=== PATIENT | female | born 1975 | race Caucasian/White ===

== ENCOUNTER 2023-07-29 13:35 | Emergency (ER) | payer MEDICARE, OTHER, SELFPAY ==
[2023-07-29 13:41] VITALS: BP 129/93; PULSE 96; RESP 18; TEMP 36.6; O2SAT 97; BMI 27.9
--- NOTE | 2023-07-29 13:56 | ED.GENADUL1 ---
HPI - General Adult General Chief complaint: Extremity Injury, Upper Stated complaint: L SIDE/POSS. DISLOCATED RIB Time Seen by Provider: 07/29/23 13:36 Source: patient Mode of arrival: walk-in History of Present Illness HPI narrative: patient is a 48-year-old female presents to the emergency department with concern that she may have dislocated a rib . She states she was leaning forward in her car and twisted to the right side when she felt a pop in the left side of the chest wall. She states that she has felt pain with breathing and movement. She took ibuprofen this morning without improvement. Injury occurred this morning. She has been applying ice. She has no concern for . She had no fall or direct injury to the chest wall. She felt pain immediately in the left anterolateral chest after feeling the pop . She has not had any bruising, swelling to the area. No pain in the posterior chest wall or spine. She denies abdominal pain. Related Data Home Medications Medication Instructions Recorded Confirmed albuterol sulfate 90 mcg/actuation 2 puff inhalation Q4H PRN 07/29/23 07/29/23 aerosol inhaler shortness of breath or wheezing atorvastatin 20 mg tablet 20 mg PO DAILY 07/29/23 07/29/23 mayehulfbmeynaj-eoczznuqhcihflz-XA 5 ml PO Q4H PRN sinus symptoms 07/29/23 07/29/23 2 mg-30 mg-10 mg/5 mL oral syrup duloxetine 30 mg capsule,delayed 30 mg PO DAILY 07/29/23 07/29/23 release guaifenesin 600 mg tablet, 600 mg PO .Q6HR PRN cough 07/29/23 07/29/23 extended release 12 hr (Mucus Relief ER) Previous Rx's Medication Instructions Recorded methocarbamol 750 mg tablet 750 mg PO TID PRN pain #20 tabs 07/29/23 methylprednisolone 4 mg tablets in See Rx Instructions .Route 07/29/23 a dose pack (Medrol ([place])) .COMPLEX #21 ea Allergies Allergy/AdvReac Type Severity Reaction Status Date / Time amoxicillin Allergy Severe Verified 07/29/23 13:44 cyclobenzaprine Allergy Severe Verified 07/29/23 13:44 [From Flexeril] morphine Allergy Severe Verified 07/29/23 13:44 naproxen Allergy Severe Verified 07/29/23 13:44 Penicillins Allergy Severe Verified 07/29/23 13:44 Review of Systems ROS Constitutional Denies: fever or chills Ears, nose, mouth, and throat Denies: throat pain Respiratory Denies: shortness of breath or cough Gastrointestinal Denies: nausea or vomiting Musculoskeletal Denies: back pain Integumentary/Breast Denies: rash Neurological Denies: headache Endocrine Denies: excessive urination Exam Narrative Exam Narrative: Gen.: Awake, alert, in no distress Head: Normocephalic, atraumatic ENT: Moist mucous membranes Respiratory: No respiratory distress, lungs clear bilaterally; diffuse tenderness of the anterior left chest wall, no ecchymosis or crepitance noted. Cardio: Regular rate and rhythm Gastrointestinal: Abdomen is soft, nondistended and nontender to palpation Extremities: Moves extremities equally, no injuries noted Psych: Normal mood and affect Neuro: No focal neuro deficit Skin: Warm, dry, intact Constitutional Vital Signs, click to edit/add: Last Vital Signs Temp 97.9 F 07/29/23 13:41 Pulse 96 H 07/29/23 13:41 Resp 18 07/29/23 13:41 BP 129/93 H 07/29/23 13:41 Pulse Ox 97 07/29/23 13:41 O2 Del Method Room Air 07/29/23 13:41 Course Vital Signs Vital signs: Vital Signs Temperature 97.9 F 07/29/23 13:41 Pulse Rate 96 H 07/29/23 13:41 Respiratory Rate 18 07/29/23 13:41 Blood Pressure 129/93 H 07/29/23 13:41 Pulse Oximetry 97 07/29/23 13:41 Oxygen Delivery Method Room Air 07/29/23 13:41 Temperature 97.9 F 07/29/23 13:41 Pulse Rate 96 H 07/29/23 13:41 Respiratory Rate 18 07/29/23 13:41 Blood Pressure 129/93 H 07/29/23 13:41 Pulse Oximetry 97 07/29/23 13:41 Oxygen Delivery Method Room Air 07/29/23 13:41 Medical Decision Making MDM Narrative Medical decision making narrative: patient was medicated with Toradol, she has an ALLERGY listed to naproxen but is able to take ibuprofen without difficulty. X-rays reviewed by the radiologist showing no evidence of displaced rib fractures. History and physical are consistent with strained muscle. patient will be started on Medrol Dosepak, Robaxin. Follow-up with PCP and return to the Emergency Room if symptoms change or worsen. Rest, ice, gentle stretching. Medical Records Medical records reviewed: Yes I reviewed the patient's medical records Imaging Data Chest x-ray: Attestation: I have reviewed the pertinent imaging results. Radiologist's impression: Procedure: XR ribs LT min 3V w CXR1V EXAMINATION: XR ribs LT min 3V w CXR1V 07/29/2023 11:15 AM PDT HISTORY: Left side pain COMPARISONS: None. FINDINGS: Lines and tubes: None. Heart and mediastinum: The heart and the mediastinum are normal for technique. Lungs and pleura: Patchy opacification of the left lateral base. There is no pleural effusion or pneumothorax. Bones: No acute osseous abnormality. LEFT RIBS: No displaced rib fracture. No suspicious osseous lesion. IMPRESSION: 1. Patchy opacification of the left lateral base. Differential includes atelectasis and pneumonia. 2. No displaced rib fracture on the left and no discrete osseous etiology for palpable lump. Electronically authenticated by: MELISSA MCGARRY Date: 07/29/2023 14:19 Discharge Plan Discharge Chief Complaint: Extremity Injury, Upper Clinical Impression: Acute chest wall pain, Muscle strain of anterior chest wall Patient Disposition: Home, Self-Care Time of Disposition Decision: 14:29 Condition: Good Prescriptions / Home Meds: New methocarbamol 750 mg tablet 750 mg PO TID PRN (Reason: pain) Qty: 20 0RF methylprednisolone [Medrol ([place])] 4 mg tablets,dose pack See Rx Instructions .ROUTE .COMPLEX Qty: 21 0RF Rx Instructions: Taper as directed No Action albuterol sulfate 90 mcg/actuation HFA aerosol inhaler 2 puff INHALATION Q4H PRN (Reason: shortness of breath or wheezing) atorvastatin 20 mg tablet 20 mg PO DAILY duloxetine 30 mg capsule,delayed release(DR/EC) 30 mg PO DAILY eamwtdlkqelucxe-gbfxgoyov-CC 2-30-10 mg/5 mL syrup 5 ml PO Q4H PRN (Reason: sinus symptoms) guaifenesin [Mucus Relief ER] 600 mg tablet extended release 12hr 600 mg PO .Q6HR PRN (Reason: cough) Instructions: Muscle Strain (ED), Chest Wall Pain (ED) Stand Alone Forms: Portal Instructions Referrals: [facility] [Primary Care Provider] - 1 week
--- NOTE | 2023-07-29 14:08 | XR_ITS ---
The [address] [address] Patient Name: ANALIA MUSE MRN: [id number] date: 1975 Sex: F Assigned Patient Location: ED.MAIN Current Patient Location: ER Accession/Order Number: [id number] Exam Date: 07/29/2023 14:00 Report Date: 07/29/2023 14:19 At the request of: EARNEST DÍAZ Procedure: XR ribs LT min 3V w CXR1V EXAMINATION: XR ribs LT min 3V w CXR1V 07/29/2023 11:15 AM PDT HISTORY: Left side pain COMPARISONS: None. FINDINGS: Lines and tubes: None. Heart and mediastinum: The heart and the mediastinum are normal for technique. Lungs and pleura: Patchy opacification of the left lateral base. There is no pleural effusion or pneumothorax. Bones: No acute osseous abnormality. LEFT RIBS: No displaced rib fracture. No suspicious osseous lesion. XR/XR ribs LT min 3V w CXR1V IMPRESSION: 1. Patchy opacification of the left lateral base. Differential includes atelectasis and pneumonia. 2. No displaced rib fracture on the left and no discrete osseous etiology for palpable lump. Electronically authenticated by: MELISSA MCGARRY Date: 07/29/2023 14:19
[2023-07-29] MEDS: KETOROLAC TROMETHAMINE 60 MG/2 ML VIAL IM (14:14)
== END 2023-07-29 14:39 | disposition home or self-care (01) ==
PROVIDERS: Emergency Provider Emergency Medicine; PCP Family Medicine
DX: S29.012A Strain of muscle and tendon of back wall of thorax, initial encounter (principal); R07.89 Other chest pain; X50.1XXA Overexertion from prolonged static or awkward postures, initial encounter
CPT/HCPCS: 71101; 96372; 99284

== ENCOUNTER 2024-04-04 17:18 | Emergency (ER) | payer MEDICARE, OTHER, SELFPAY ==
[2024-04-04 17:26] VITALS: BP 154/98; PULSE 101; TEMP 36.8; O2SAT 97
--- NOTE | 2024-04-04 17:35 | ED.BACK1 ---
HPI HPI - Back Pain/Injury General Chief Complaint: Back Pain/Injury Stated Complaint: Back Pain Time Seen by Provider: 04/04/24 17:23 Source: patient Mode of arrival: walk-in Limitations: no limitations History of Present Illness HPI Narrative: 48-year-old female presents to the emergency department for a chief complaint of low back pain. She has had it for a month. She states she had a visit to another hospital's emergency department nearly a month ago and no x-rays were done. She also saw her family doctor and no x-rays were done. She is interested in getting an MRI. The pain does not seem to radiate and it is in the midline low back. No dysuria or hematuria. There was no injury or unusual activity. The pain is moderate to severe and worse in certain positions. Related Data Home Medications ?Medication ?Instructions ?Recorded ?Confirmed albuterol sulfate 90 mcg/actuation 2 puff inhalation Q4H PRN 07/29/23 04/04/24 aerosol inhaler shortness of breath or wheezing atorvastatin 20 mg tablet 20 mg PO DAILY 07/29/23 04/04/24 duloxetine 30 mg capsule,delayed 30 mg PO DAILY 07/29/23 04/04/24 release cyclobenzaprine 10 mg tablet 10 mg PO Q8H 04/04/24 04/04/24 omeprazole 40 mg capsule,delayed 40 mg PO BID 04/04/24 04/04/24 release Previous Rx's ?Medication ?Instructions ?Recorded methocarbamol 750 mg tablet 750 mg PO TID PRN pain #20 tabs 07/29/23 Allergies Allergy/AdvReac Type Severity Reaction Status Date / Time amoxicillin Allergy Severe Verified 07/29/23 13:44 morphine Allergy Severe Verified 07/29/23 13:44 naproxen Allergy Severe Nausea Verified 04/04/24 17:33 Penicillins Allergy Severe Verified 07/29/23 13:44 Opioid HPI Opioid Management Most Recent Opioid Data: Last Pain Scale 7 04/04/24 17:53 Last MAR Pain Assessment 04/04/24 17:53 Review of Systems ROS Narrative A ten point review of systems is negative except as noted above. Exam Narrative Exam Narrative: Nurses note and vital signs reviewed and patient is not hypoxic. General: The patient appears well and in no apparent distress. Patient is resting comfortably on cart. Skin: Warm, dry, no pallor noted. There is no rash noted. Head: Normocephalic, atraumatic Eye: Normal conjunctiva, no drainage Ears, Nose, Mouth, and Throat: oral mucosa is moist. Nares patent. Cardiovascular: Regular Rate and Rhythm Respiratory: Patient is in no distress, no accessory muscle use, lungs are clear to auscultation, no wheezing, rales or rhonchi Back: No bruise or rash to her back. She is reluctant to move her back. GI: Soft and nontender Musculoskeletal: The patient has no evidence of calf tenderness, no pitting edema, symmetrical pulses noted bilaterally Neurological: A&O, normal speech Psychiatric: Cooperative Constitutional Vital Signs, click to edit/add: Last Vital Signs Temp 98.2 F 04/04/24 17:26 Pulse 101 H 04/04/24 17:26 Resp 18 04/04/24 17:26 BP 154/98 H 04/04/24 17:26 Pulse Ox 97 04/04/24 17:26 O2 Del Method Room Air 04/04/24 17:26 Course Vital Signs Vital signs: Vital Signs Temperature 98.2 F 04/04/24 17:26 Pulse Rate 101 H 04/04/24 17:26 Respiratory Rate 18 04/04/24 17:26 Blood Pressure 154/98 H 04/04/24 17:26 Pulse Oximetry 97 04/04/24 17:26 Oxygen Delivery Method Room Air 04/04/24 17:26 Temperature 98.2 F 04/04/24 17:26 Pulse Rate 101 H 04/04/24 17:26 Respiratory Rate 18 04/04/24 17:26 Blood Pressure 154/98 H 04/04/24 17:26 Pulse Oximetry 97 04/04/24 17:26 Oxygen Delivery Method Room Air 04/04/24 17:26 MDM - Back Pain/Injury MDM Narrative Medical decision making narrative: X-rays are pending and the patient is being signed out to Dr. Cartwright Differential Diagnosis Differential diagnosis: Likely strain of lumbar region and other (Compression fracture) Discharge Plan Discharge Patient Disposition: Still a Patient
[2024-04-04] MEDS: KETOROLAC TROMETHAMINE 60 MG/2 ML VIAL IM (17:53)
--- NOTE | 2024-04-04 18:15 | XR_ITS ---
The [address] [address] Patient Name: ANALIA MUSE MRN: [id number] date: 1975 Sex: F Assigned Patient Location: ER Current Patient Location: ED.MAIN Accession/Order Number: [id number] Exam Date: 04/04/2024 18:10 Report Date: 04/04/2024 19:29 At the request of: ASIM HUNTLEY Procedure: XR lumbar spine 2-3V IMAGES REVIEWED: XR lumbar spine 2-3V COMPARISON: None available. CLINICAL INDICATION: low back pain FINDINGS/IMPRESSION: 1. No definite radiographic evidence of acute osseous abnormality of the lumbar spine. 2. Osteopenia. 3. Trace age-indeterminate height loss of the upper endplate of L2 vertebral body, evaluation limited by lack of priors for comparison. 4. Mild multilevel degenerative disc disease, most severe at L1-L2. Lower lumbar facet arthropathy. No spondylolisthesis. Electronically authenticated by: STEPHAN OCX Date: 04/04/2024 19:29
[2024-04-04] MEDS: METHYLPREDNISOLONE SOD SUCC PF 125 MG/2 ML VIAL IM (20:11)
== END 2024-04-04 20:18 | disposition home or self-care (01) ==
PROVIDERS: Emergency Provider Internal Medicine
DX: M47.816 Spondylosis without myelopathy or radiculopathy, lumbar region (principal); M54.50 Low back pain, unspecified; Z90.710 Acquired absence of both cervix and uterus; M85.88 Other specified disorders of bone density and structure, other site
CPT/HCPCS: 72100; 96372; 99284; J2919

== ENCOUNTER 2024-04-18 06:38 | Outpatient (OUT) | payer MEDICARE, OTHER, SELFPAY ==
--- OUTSIDE RECORDS SUMMARY | 2024-04-18 06:40 | XMS_ITS | CCD ---
Author Organization [facility] Care Team Providers Care Certified Physical Therapist Assistant Name Role Phone AIDE LOMELI Primary Care Unavailable CINDY COON Admitting Unavailable CINDY COON Attending Unavailable Antwan Woodruff MD Unavailable Ivy Negrete MD Primary Care Provider Don Moya MD Unavailable Nathaniel Ovalle MD Unavailable Lianne Mayo DO Unavailable Karlee Sanchez MD Unavailable Antwan Woodruff MD Unavailable Ivy Negrete MD Primary Care Provider Don Moya MD Unavailable Nathaniel Ovalle MD Unavailable [phone] KuLianne gutierrez DO Unavailable Karlee Sanchez MD Unavailable Regina Bright MD Unavailable Leopoldo Douglas Primary Care Provider Antwan Woodruff MD Unavailable Don Moya MD Unavailable Nathaniel Ovalle MD Unavailable Lianne Mayo DO Unavailable Karlee Sanchez MD Unavailable Deangelo CAVANAUGH, Regina Unavailable [phone] Chuck ELECTRICAL TRANSMISSION ENGINEER-RECEPTIONIST DOCTOR'S OFFICE, Leopoldo Primary Care Provider Mason Walls MD Unavailable [phone] Stalcup RPh, Joseph Unavailable Unavailable [place] facility supervisor, Ronit Unavailable Unavailable Darryl facility supervisor, Maya Unavailable Unavailable Chuck ELECTRICAL TRANSMISSION ENGINEER-RECEPTIONIST DOCTOR'S OFFICE, Leopoldo Primary Care Provider Stalcup RPh, Joseph Unavailable Unavailable [place] facility supervisor, Ronit Unavailable Unavailable Darryl facility supervisor, Maya Unavailable Unavailable Masno Walls MD Unavailable [phone] Stalcup RPh, Joseph Unavailable Unavailable [place] facility supervisor, Ronit Unavailable Unavailable Darryl facility supervisor, Maya Unavailable Unavailable Demidova DO, Shira Unavailable Stalcup RPh, Joseph Unavailable Unavailable [place] facility supervisor, Ronit Unavailable Unavailable Darryl facility supervisor, Maya Unavailable Unavailable Mack Vega MD Unavailable CHUCK, LEOPOLDO Primary Care Unavailable PROVIDER, UNKNOWN Attending Unavailable PROVIDER, UNKNOWN Admitting Unavailable CHUCK, LEOPOLDO Primary Care Unavailable PROVIDER, UNKNOWN Attending Unavailable PROVIDER, UNKNOWN Admitting Unavailable IVY NEGRETE Primary Care Unavailable PATIENT, SELF Referring Unavailable PROVIDER, UNKNOWN Attending Unavailable PROVIDER, UNKNOWN Admitting Unavailable CHUCK, LEOPOLDO Primary Care Unavailable PROVIDER, UNKNOWN Attending Unavailable PROVIDER, UNKNOWN Admitting Unavailable PATIENT, SELF Referring Unavailable CHUCK, LEOPOLDO Primary Care Unavailable PROVIDER, UNKNOWN Attending Unavailable PROVIDER, UNKNOWN Admitting Unavailable CHUCK, LEOPOLDO Primary Care Unavailable PATIENT, SELF Referring Unavailable PROVIDER, UNKNOWN Attending Unavailable PROVIDER, UNKNOWN Admitting Unavailable ROBERTPAULINA PARADA Attending Unavailable CHUCK, LEOPOLDO Primary Care Unavailable PROVIDER, UNKNOWN Admitting Unavailable CHUCK, LEOPOLDO Primary Care Unavailable PROVIDER, UNKNOWN Attending Unavailable PROVIDER, UNKNOWN Admitting Unavailable CHUCK, LEOPOLDO Primary Care Unavailable ROBERT, PAULINA Referring Unavailable PROVIDER, UNKNOWN Attending Unavailable PROVIDER, UNKNOWN Admitting Unavailable CHUCK, LEOPOLDO Primary Care Unavailable CHUCK, LEOPOLDO Referring Unavailable PROVIDER, UNKNOWN Attending Unavailable PROVIDER, UNKNOWN Admitting Unavailable CHUCK, LEOPOLDO Primary Care Unavailable PROVIDER, UNKNOWN Attending Unavailable PROVIDER, UNKNOWN Admitting Unavailable HITESH ROJAS Attending Unavailable CHUCK, LEOPOLDO Primary Care Unavailable PROVIDER, UNKNOWN Admitting Unavailable FASS, MARIUSZ Referring Unavailable CHUCK, LEOPOLDO Primary Care Unavailable PROVIDER, UNKNOWN Attending Unavailable PROVIDER, UNKNOWN Admitting Unavailable CHUCK, LEOPOLDO Primary Care Unavailable KAREEN GREEN, KASH Referring Unavaila ble PROVIDER, UNKNOWN Attending Unavailable PROVIDER, UNKNOWN Admitting Unavailable CHUCK, LEOPOLDO Primary Care Unavailable KAREEN GREEN, KASH Referring Unavaila ble PROVIDER, UNKNOWN Attending Unavailable PROVIDER, UNKNOWN Admitting Unavailable CHUCK, LEOPOLDO Primary Care Unavailable CHUCK, LEOPOLDO Referring Unavailable PROVIDER, UNKNOWN Attending Unavailable PROVIDER, UNKNOWN Admitting Unavailable CHUCK, LEOPOLDO Primary Care Unavailable CHUCK, LEOPOLDO Referring Unavailable PROVIDER, UNKNOWN Attending Unavailable PROVIDER, UNKNOWN Admitting Unavailable CHUCK RACHEL, LEOPOLDO L Primary Care Physician Richard Coon Attending Unavailable Richard Coon Admitting Unavailable Chuck, Leopoldo L Primary Care Unavailable Windnagel, Azul Referring Unavailable Windnagel, Azul Attending Unavailable Windnagel, Azul Admitting Unavailable CHUCK, LEOPOLDO Admitting Unavailable CHUCK, LEOPOLDO Attending Unavailable CHUCK, LEOPOLDO Primary Care Unavailable CHUCK, LEOPOLDO Consulting Unavailable Allergies Allergy Classification Reported Allergen(s) Allergy Type Date of Onset Reaction(s) Facility (3 sources) Morphine; Translations: [MORPHINE] Drug Allergy 4 [facility] Repository (3 sources) Penicillins; Translations: [PENICILLINS] Drug allergy (disorder) 3 Rash [facility] Repository (2 sources) Ketorolac; Translations: [KETOROLAC TROMETHAMINE] Drug Allergy 6 Vomiting [facility] (20 sources) Morphine; Translations: [morphine] Drug Allergy 6 Confusion [facility] Work Phone: (20 sources) Naproxen; Translations: [NAPROXEN] Drug Allergy 8 Upset Stomach [facility] (20 sources) traMADol; Translations: [TRAMADOL] Drug Allergy 7 Upset Stomach [facility] Work Phone: (20 sources) Ketorolac trometamol Propensity to adverse reactions to drug 6 Vomiting [facility] (20 sources) Penicillins Propensity to adverse reactions to drug 6 [facility] Penicillin; Translations: [penicillin] Drug Allergy rash [facility] (2 sources) Ketorolac Drug Allergy 4 [facility] Repository (2 sources) Morphine Drug Allergy 4 [facility] Repository (2 sources) Penicillins Drug allergy (disorder) 4 [facility] Repository (2 sources) traMADol Drug Allergy 4 [facility] Repository (1 source) Naproxen; Translations: [Naprosyn] Drug Allergy [facility] Repository Medications Current Medications Medication Drug Class(es) Dates Sig (Normalized) Sig (Original) 0.4 ml adalimumab 100 mg/ml auto-injector (20 sources) Tumor Necrosis Factor Jelani Start: 12-19-2022 End: 04-08-2023 Adalimumab (Humira Pen) 40 MG/0.4ML PNKT Inject 40 mg under the skin every 14 days. 2 Each 3 04/09/2023 Active Start: 08-13-2022 End: 12-17-2022 Adalimumab (Humira Pen) 40 M G/0.4ML PNKT Inject 40 mg under the skin every 14 days. 2 Each 3 08/13/2022 12/17/2022 Discontinued (Reorder (*won't e-cancel)) Start: 05-21-2022 End: 08-13-2022 adalimumab (Humira) 40 MG/0. 8ML PSKT injection Inject 0.8 mL into the skin every 10 (ten) days 3 Each 5 05/21/2022 08/13/2022 Discontinued (Duplicate (*won't e-cancel)) Start: 01-27-2020 End: 05-26-2023 Adalimumab 40 MG/0.4ML PNKT INJECT 40 MG INTO THE SKIN EVERY 10 (TEN) DAYS 2 Each 2 05/26/2022 08/13/2022 Discontinued (Duplicate (*won't e-cancel)) [id number] 200 actuat albuterol 0.09 mg/actuat metered dose inhaler (20 sources) beta2-Adrenergic Agonist Start: 08-18-2016 albuterol (PROVENTIL HFA) inhaler 90 mcg/inh Inhale 2 Puffs. 0 08/18/2016 Active atorvastatin 20 mg oral tablet (20 sources) HMG-CoA Reductase Inhibitor take 1 tablet by mouth once daily atorvastatin (LIPITOR) 20 MG tablet Take 20 mg by mouth daily. 0 Active calcipotriene 0.95974 mg/mg topical ointment (20 sources) Vitamin D Analog Start: 05-28-2017 End: 05-11-2023 calcipotriene (DOVONOX) 0.005 % ointment Indications: Psoriasis Apply topically 2 times daily. Apply thin layer to affected area. 60 g 3 11/12/2022 Active clobetasol propionate 0.5 mg/ml topical cream (20 sources) Corticosteroid Start: 02-02-2017 End: 01-17-2024 clobetasol (TEMOVATE) 0.05 % cream Indications: Psoriasis Apply topically 2 times daily to rash on hands and feet 60 g 3 07/21/2023 01/17/2024 Active DULoxetine 30 mg delayed release oral capsule (3 sources) Serotonin and Norepinephrine Reuptake Inhibitor Start: 04-07-2023 take 1 capsule by mouth once daily duloxetine (CYMBALTA) 30 MG capsule Take 1 Capsule by mouth daily. 0 04/07/2023 Active 120 actuat fluticasone propionate 0.11 mg/actuat metered dose inhaler (20 sources) Corticosteroid Start: 08-18-2016 fluticasone (FLOVENT HFA) 110 MCG/ACT inhaler Inhale 2 Puffs. 0 08/18/2016 Active ibuprofen 600 mg oral tablet (3 sources) Nonsteroidal Anti-inflammatory Drug Start: 02-19-2023 ibuprofen (MOTRIN) 600 MG tablet Take 600 mg by mouth. 0 02/19/2023 Active lamoTRIgine 100 mg oral tablet (20 sources) Mood Stabilizer, Anti-epileptic Agent take 1 tablet by mouth once daily lamotrigine (LAMICTAL) 100 MG tablet Take 100 mg by mouth daily. 0 Active linaclotide 0.145 mg oral capsule (20 sources) Guanylate Cyclase-C Agonist Start: 07-30-2017 take 1 capsule by mouth once daily Linaclotide 145 MCG CAPS capsule Indications: Chronic idiopathic constipation Take 1 Capsule by mouth daily. 30 Capsule 3 07/30/2017 Active naloxone hydrochloride 40 mg/ml nasal spray (20 sources) Opioid Antagonist Start: 08-05-2019 naloxone 4 MG/0.1ML LIQD nasal liquid Indications: Opioid Overdose Instill 0.1 mL into one nostril (alternate sides) as needed for Other (Drug overdose, give and call 911) for up to 1 dose Indications: Opioid Overdose. 1 Each 1 08/05/2019 Active omeprazole 40 mg delayed release oral capsule (20 sources) Proton Pump Inhibitor Start: 06-24-2018 take 1 capsule by mouth once daily omeprazole (PRILOSEC) 40 MG capsule Take 1 Capsule by mouth daily. 60 Capsule 3 06/24/2018 Active petrolatum 610 mg/ml topical cream (20 sources) Start: 12-28-2018 eucerin (DERMACERIN) cream Apply topically as needed. Apply thin layer to affected area. 1 Tube 1 12/28/2018 Active Tapinarof 1 % CREA (14 sources) Start: 07-21-2023 Tapinarof 1 % CREA Indications: Psoriasis Apply 2 g externally daily. 60 g 1 07/21/2023 Active tiZANidine 4 mg oral tablet (3 sources) Central alpha-2 Adrenergic Agonist Start: 03-07-2022 take 1 tablet by mouth every six hours as needed tizanidine (ZANAFLEX) 4 MG tablet Take 1 Tablet by mouth every 6 hours as needed. 0 03/07/2022 Active triamcinolone acetonide 1 mg/ml topical cream (20 sources) Corticosteroid Start: 12-28-2018 triamcinolone 0.1 % cream Apply topically 2 times daily. Apply thin layer to affected area. 30 g 0 12/28/2018 Active Completed/Discontinued Medications Medication Drug Class(es) Dates Sig (Normalized) Sig (Original) acetaminophen 500 mg oral tablet (1 source) Start: 11-12-2022 End: 11-12-2022 acetaminophen (TYLENOL) tablet Start: 11-12-2022 End: 11-12-2022 acetaminophen (TYLENOL) tabl et albuterol 0.833 mg/ml / ipratropium bromide 0.167 mg/ml inhalation solution (1 source) Anticholinergic, beta2-Adrenergic Agonist Start: 08-08-2023 End: 08-08-2023 ipratropium-albuterol (DUO-NEB) 0.5-2.5 (3) MG/3ML nebulizer solution Start: 08-08-2023 End: 08-08-2023 ipratropium-albuterol (DUO-N EB) 0.5-2.5 (3) MG/3ML nebulizer solution amitriptyline hydrochloride 25 mg oral tablet (19 sources) Tricyclic Antidepressant Start: 07-30-2017 End: 12-05-2022 take 1 tablet by mouth at bedtime amitriptyline (ELAVIL) 25 MG tablet Indications: Chronic GERD Take 1 Tablet by mouth at bedtime. 30 Tablet 0 07/30/2017 12/05/2022 Discontinued (Changing therapy) esomeprazole 40 mg injection (1 source) Proton Pump Inhibitor Start: 08-08-2023 End: 08-08-2023 esomeprazole (NEXIUM) 40 MG injection Start: 08-08-2023 End: 08-08-2023 esomeprazole (NEXIUM) 40 MG injection 2 ml famotidine 10 mg/ml injection (1 source) Histamine-2 Receptor Antagonist Start: 08-08-2023 End: 08-08-2023 Famotidine (PF) (PEPCID) 20 MG/2ML injection Start: 08-08-2023 End: 08-08-2023 Famotidine (PF) (PEPCID) 20 MG/2ML injection 0.5 ml HYDROmorphone hydrochloride 1 mg/ml prefilled syringe (1 source) Opioid Agonist Start: 08-08-2023 End: 08-08-2023 HYDROmorphone HCl PF (DILAUDID) 1 MG/ML injection Start: 08-08-2023 End: 08-08-2023 HYDROmorphone HCl PF (DILAUD ID) 1 MG/ML injection iohexol (OMNIPAQUE) 350 MG/ML injection (1 source) Start: 08-08-2023 End: 08-08-2023 iohexol (OMNIPAQUE) 350 MG/ML injection 2 ml ondansetron 2 mg/ml injection (3 sources) Serotonin-3 Receptor Antagonist Start: 08-08-2023 End: 08-08-2023 ondansetron (ZOFRAN) 4 MG/2ML injection Start: 08-08-2023 End: 08-08-2023 ondansetron (ZOFRAN) 4 MG/2M L injection Start: 11-12-2022 End: 11-12-2022 ondansetron (ZOFRAN-ODT) dis integrating tablet sertraline 25 mg oral tablet (20 sources) Serotonin Reuptake Inhibitor End: 07-22-2023 sertraline (ZOLOFT) 25 MG tablet Take 150 mg by mouth daily. 0 07/22/2023 Discontinued (Therapy completed) 50 ml sodium chloride 9 mg/ml injection (20 sources) Start: 08-08-2023 End: 08-08-2023 sodium chloride 0.9 % iv bolus Start: 01-08-2018 take 4 spray(s) nasa l route four times daily sodium chloride (OCEAN NASAL SPRAY) 0.65 % nasal spray Indications: Deviated nasal septum Instill 4 Sprays into each nostril 4 times daily. 2 Bottle 3 01/08/2018 Active sucralfate 1000 mg oral tablet (1 source) Aluminum Complex Start: 08-08-2023 End: 08-08-2023 sucralfate (CARAFATE) tablet Start: 08-08-2023 End: 08-08-2023 sucralfate (CARAFATE) tablet Technet Tc 99m Sulfur Colloi d (1 source) Start: 12-22-2022 End: 12-22-2022 Technet Tc 99m Sulfur Colloi d Problems Active Problems Problem Classification Problem Date Documented Da te Episodic/Chronic Abdominal hernia (2 sources) Hiatal hernia; Translations: [Diaphragmatic hernia without obstruction or gangrene] Onset: 3 08-13-2023 Episodic Abdominal pain (6 sources) Epigastric pain; Translations: [Epigastric pain] Onset: 3 08-08-2023 Episodic Acute and chronic tonsillitis (20 sources) Hypertrophy of adenoids; Translations: [Hypertrophy of adenoids] Onset: 7 11-19-2017 Chronic Conduction disorders (1 source) Long QT syndrome; Translations: [Long QT syndrome] Onset: 2 Chronic Esophageal disorders (20 sources) Gastroesophageal reflux disease; Translations: [Gastro-esophageal reflux disease without esophagitis] Onset: 6 06-25-2017 Chronic Mood disorders (20 sources) Depressive disorder; Translations: [Depression] Onset: 6 06-25-2017 Chronic Other aftercare (5 sources) Taking high risk medication; Translations: [Other long lines operator (current) drug therapy] Episodic Other congenital anomalies (20 sources) Disorder of the nose; 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, unspecified] Onset: 7 08-06-2017 Chronic Other connective tissue disease (1 source) Muscle pain; Translations: [Myalgia, unspecified site] Episodic Other connective tissue disease (2 sources) Facial weakness; Translations: [Facial weakness] Onset: 4 Episodic Other ear and sense organ disorders (2 sources) Otalgia, right ear; Translations: [Otalgia, right ear] Onset: 4 Episodic Other gastrointestinal disorders (20 sources) Irritable bowel syndrome characterized by constipation; Translations: [Irritable bowel syndrome with constipation] Onset: 7 06-25-2017 Chronic Other inflammatory condition of skin (20 sources) Psoriasis; Translations: [Psoriasis, unspecified] Onset: 6 Chronic Other inflammatory condition of skin (2 sources) Pustular psoriasis of palms and soles; 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] Chronic Other inflammatory condition of skin (1 source) Pustulosis palmaris et plantaris; 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] Onset: 3 Chronic Other inflammatory condition of skin (1 source) Psoriasis, unspecified; Translations: [Psoriasis, unspecified] Onset: 7 Chronic Other liver diseases (20 sources) Steatosis of liver; Translations: [Fatty (change of) liver, not elsewhere classified] Onset: 6 06-25-2017 Chronic Other nervous system disorders (20 sources) Chronic pain syndrome; Translations: [Chronic pain syndrome] Onset: 8 05-13-2018 Chronic Other nervous system disorders (20 sources) Spinal cord disease; Translations: [Disease of spinal cord, unspecified] Onset: 8 09-09-2018 Chronic Other nutritional; endocrine; and metabolic disorders (3 sources) Overweight in adulthood with body mass index of 25 or more but less than 30; Translations: [Body mass index (BMI) 28.0-28.9, adult] Episodic Other nutritional; endocrine; and metabolic disorders (1 source) Body mass index (BMI) 29.0-29.9, adult; Translations: [Body mass index (BMI) 29.0-29.9, adult] Onset: 3 Episodic Other upper respiratory infections (2 sources) Acute pharyngitis, unspecified; Translations: [Acute pharyngitis, unspecified] Onset: 4 Episodic Residual codes; unclassified (20 sources) Obstructive sleep apnea syndrome; Translations: [Obstructive sleep apnea (adult) (pediatric)] Onset: 7 08-06-2017 Chronic Residual codes; unclassified (4 sources) Procedure and treatment not carried out due to patient leaving prior to being seen by health care provider; Translations: [PROC AND TX NOT CARRIED OUT PT LEAVE] Onset: 9 Episodic Spondylosis; intervertebral disc disorders; other back problems (20 sources) Prolapsed lumbar intervertebral disc; Translations: [Other intervertebral disc displacement, lumbar region] Onset: 8 07-26-2019 Chronic Past or Other Problems Problem Classification Problem Date Documented Date Episodic/Chronic Influenza (2 sources) Influenza due to Influenza A virus; Translations: [Influenza due to other identified influenza virus with other respiratory manifestations] Onset: 11-12-2022 Episodic Nonspecific chest pain (20 sources) Chest pain; Translations: [Chest pain, unspecified] Onset: 06-24-2017 06-24-2017 Episodic Other aftercare (20 sources) Patient encounter status; Translations: [Encounter for other specified aftercare] Onset: 06-29-2018 06-29-2018 Episodic Other aftercare (1 source) Other jail (current) drug therapy; Translations: [Other long lines operator (current) drug therapy] Onset: 12-22-2022 Episodic Other connective tissue disease (1 source) Myalgia, unspecified site; Translations: [Myalgia, unspecified site] Onset: 11-12-2022 Episodic Other disorders of stomach and duodenum (20 sources) Indigestion; Translations: [Functional dyspepsia] Onset: 02-07-2016 06-25-2017 Episodic Other disorders of stomach and duodenum (1 source) Functional dyspepsia; Translations: [Functional dyspepsia] Onset: 06-25-2017 Episodic Other non-traumatic joint disorders (1 source) Pain in right knee; Translations: [Pain in right knee] Onset: 12-04-2022 Episodic Other non-traumatic joint disorders (1 source) Pain in left knee; Translations: [Pain in left knee] Onset: 12-04-2022 Episodic Other nutritional; endocrine; and metabolic disorders (20 sources) H/O: thyroid disorder; Translations: [Personal history of other endocrine, nutritional and metabolic disease] Onset: 03-22-2016 06-25-2017 Episodic Other nutritional; endocrine; and metabolic disorders (1 source) Body mass index (BMI) 28.0-28.9, adult; Translations: [Body mass index (BMI) 28.0-28.9, adult] Onset: 12-05-2022 Episodic Other screening for suspected conditions (not mental disorders or infectious disease) (1 source) Abnormal electrocardiogram [ECG] [EKG]; Translations: [Abnormal electrocardiogram (ECG) (EKG)] Onset: 11-12-2022 Episodic Other upper respiratory disease (20 sources) Hypertrophy of nasal turbinates; Translations: [Hypertrophy of nasal turbinates] Onset: 11-19-2017 11-19-2017 Episodic Other upper respiratory disease (20 sources) Deviated nasal septum; Translations: [Deviated nasal septum] Onset: 11-19-2017 01-08-2018 Episodic Residual codes; unclassified (20 sources) Inadequate sleep hygiene; Translations: [Inadequate sleep hygiene] Onset: 08-06-2017 08-06-2017 Episodic Spondylosis; intervertebral disc disorders; other back problems (20 sources) Lumbosacral radiculopathy; Translations: [Radiculopathy, lumbosacral region] Onset: 05-13-2018 05-13-2018 Episodic Results Test Name Value Interpretation Reference Range Facility Consent for Treatmenton 01-29 Consent for Treatment [id number] .00TIFF Normal [facility] MRI Brain w/ + w/o Contrasto n 02-17-2024 MRI Brain w/ + w/o Contrast Exam Date/Time: 02/17/2024 15:45 EDT Reason for Exam: G51.0 Report IMPRESSION: There are no acute intracranial changes, no evidence of ischemia or hemorrhage. There are no regions of signal abnormality there is no abnormal enhancement.. EXAMINATION: MRI Brain w/ + w/o Contrast CLINICAL HISTORY: G51.0 COMPARISONS: NONE AVAILABLE TECHNIQUE: Multiplanar multisequence images of the brain were obtained before and after IV administration of contrast. Diffusion perfusion imaging was obtained. High-resolution imaging was performed through the region of the cerebellopontine angles and IACs. FINDINGS: There are no extra-axial collections. There is no evidence of hemorrhage. There are no areas of signal abnormality on perfusion diffusion imaging to suggest ischemia. The susceptibility images do not demonstrate evidence of hemosiderin deposition within the brain parenchyma or the leptomeninges. There is preservation of the lopez-white matter differentiation. There are no areas of signal abnormality within the brain parenchyma or the posterior fossa to suggest lesion. The sulci and ventricles are within normal limits without evidence of hydrocephalus. The midline structures are intact, the corpus callosum is within normal limits. The region of the pineal gland and the sella turcica are unremarkable. There are no space-occupying lesions in the posterior fossa. The basilar cisterns are patent. The craniocervical junction is unremarkable. High-resolution imaging through the region of the cerebellopontine angles and internal auditory canals demonstrates no space-occupying lesions. The vestibular cochlear nerves are within normal limits. The bilateral inner ear structures including the cochlea and the semicircular canals are unremarkable. The visualized portions of the orbits are within normal limits, the globes are intact. The visualized portions of the paranasal sinuses are within normal limits. The calvarium and soft tissues are unremarkable. Report Ordering Provider: Azul Evans FINAL REPORT Dictated: 02/17/2024 4:50 pm Mitchell Gutierrez MD, V. Signed (Electronic Signature): 02/17/2024 4:50 pm Signed by: Mitchell Gutierrez MD, V. Transcribed by: CHERIE Technologist: NATHALIE Technical Comments [employer] Contrast amount in ml's: 7.[address] [facility] Physician Orderon 02-17-2024 Physician Order [id number] Normal [facility] RAD - MRI Screening Formon 0 02-17-2024 RAD - MRI Screening Form [id number] Normal [facility] CT head/brain wo conon 02-07 CT head/brain wo con [facility] Main [place] [address] [place], [place] [id number] CT Scan Report Signed Patient: Heather Johns MR#: [id number] : 1975 Acct:[id number] Age/Sex: 48 / F ADM Date: 02/08/24 Loc: ER Room: Type: [facility] ER Attending Dr: Copies to: Richard Coon MD Ordering Provider: Richard Coon MD Date of Service: 02/08/24 CT/CT head/brain wo con: [facility] CT head/brain wo con 02/08/2024 12:11 PM SIGNS AND SYMPTOMS: Sore throat, right ear pain, left-sided facial droop, history of Newsome's palsy TECHNIQUE:Multi-detec tor CT axial slices of the brain were obtained without IV contrast. CT was performed with one or more of the following dose reduction techniques: Automated exposure control, adjustment of the mA and/or kV according to patient size, or use of iterative reconstruction technique. COMPARISON: None. FINDINGS: There is no shift of the midline structures, acute intracranial bleeding, mass effects, or evidence of acute ischemia. The ventricular system is normal in size. The brainstem and the cerebellum are unremarkable. Mucosal thickening is noted in the maxillary sinuses. There is a right mastoid and middle ear effusion. The visualized intraorbital contents and the infratemporal soft tissues show no acute abnormality. The osseous structures in the skull base and the calvarium show no abnormality. CT/CT head/brain wo con IMPRESSION: No acute intracranial pathology. There is a small right mastoid and middle ear effusion. Impression dictated by: Cindy Hernandez M.D.02/08/2024 2:00 PM Dictation Location: [place] [address] Transcribed By: [facility] 02/08/24 1400 Dictated By: Cindy Hernandez II, MD 02/08/24 1352 Signed By: 02/08/24 1400 Normal [facility] CT head/brain wo con [facility] Main [place] [id number] CT Scan Report Signed Patient: Heather Johns MR#: [id number] : 1975 Acct:[id number] Age/Sex: 48 / F ADM Date: 02/08/24 Loc: ER Room: Type: [facility] ER Attending Dr: Copies to: Richard Coon MD Ordering Provider: Richard Coon MD Date of Service: 02/08/24 CT/CT head/brain wo con: jhg CT head/brain wo con 02/08/2024 12:11 PM SIGNS AND SYMPTOMS: Sore throat, right ear pain, left-sided facial droop, history of Newsome's palsy TECHNIQUE:Multi-detec tor CT axial slices of the brain were obtained without IV contrast. CT was performed with one or more of the following dose reduction techniques: Automated exposure control, adjustment of the mA and/or kV according to patient size, or use of iterative reconstruction technique. COMPARISON: None. FINDINGS: There is no shift of the midline structures, acute intracranial bleeding, mass effects, or evidence of acute ischemia. The ventricular system is normal in size. The brainstem and the cerebellum are unremarkable. Mucosal thickening is noted in the maxillary sinuses. There is a right mastoid and middle ear effusion. The visualized intraorbital contents and the infratemporal soft tissues show no acute abnormality. The osseous structures in the skull base and the calvarium show no abnormality. CT/CT head/brain wo con IMPRESSION: No acute intracranial pathology. There is a small right mastoid and middle ear effusion. Impression dictated by: Cindy Hernandez M.D.02/08/2024 2:00 PM Dictation Location: [place] [address] Transcribed By: [facility] 02/08/24 1400 Dictated By: Cindy Hernandez II, MD 02/08/24 1352 Signed By: 02/08/24 1400 Normal [facility] CT soft tissue neck w conon 02-08-2024 CT soft tissue neck w [facility] [place] [address] CT Scan Report Signed Patient: Heather Johns MR#: [id number] : 1975 Acct:[id number] Age/Sex: 48 / F ADM Date: 02/08/24 Loc: ER Room: Type: [facility] ER Attending Dr: Copies to: Richard Coon MD Ordering Provider: Richard Coon MD Date of Service: 02/08/24 CT/CT soft tissue neck w con: Swelling CT soft tissue neck w con 02/08/2024 12:11 PM SIGNS AND SYMPTOMS: Sore throat, right ear pain, left-sided facial droop with history of Newsome's palsy CONTRAST: 90 mL of intravenous Isovue-300 TECHNIQUE: Multidetector CT axial slices of the soft tissues of the neck were obtained with IV contrast. Sagittal and coronal reformats were reconstructed. CT was performed with one or more of the following dose reduction techniques: Automated exposure control, adjustment of the mA and/or kV according to patient size, or use of iterative reconstruction technique. COMPARISON: None FINDINGS: Soft tissues of the orbits are within normal limits. The soft tissues of the infratemporal fossa fossa structures show no acute abnormality. Mucosal surfaces of the nasopharynx, oropharynx, hypopharynx, glottic, and subglottic airways are grossly unremarkable. There are multiple mildly prominent level 2 and level 3 lymph nodes measuring 11 mm in short axis bilaterally. The parotid glands and submandibular glands are within normal limits. Heterogeneous thyroid nodules are noted bilaterally. This most likely represents multinodular goiter. The carotid and jugular circulations are patent. Calcified and noncalcified plaque is noted in the carotid bifurcations. The visualized lung parenchyma shows no acute pathology. No acute bony abnormalities are appreciated. Degenerative changes are noted in the cervical spine. The skull base, craniocervical junction, atlantoaxial joints are within normal limits. Mucosal thickening is noted in the right maxillary sinus. There is a right mastoid and middle ear effusion. CT/CT soft tissue neck w con IMPRESSION: There are multiple mildly prominent level 2 and level 3 lymph nodes measuring 11 mm in short axis bilaterally. There is no mass or abnormal enhancement. There is a right mastoid and middle ear effusion. Heterogeneous thyroid nodules are noted bilaterally. This most likely represents multinodular goiter. Impression dictated by: Cindy Hernandez M.D.02/08/2024 2:13 PM Dictation Location: [place] [address] Transcribed By: [facility] 02/08/24 1413 Dictated By: Cindy Hernandez II, MD 02/08/24 1400 Signed By: 02/08/[address] [facility] [address] soft tissue neck w con [facility] [place] [address] [place] [address] CT Scan Report Signed Patient: Heather Johns MR#: [id number] : 1975 Acct:[id number] Age/Sex: 48 / F ADM Date: 02/08/24 Loc: ER Room: Type: [facility] ER Attending Dr: Copies to: Richard Coon MD Ordering Provider: Richard Coon MD Date of Service: 02/08/24 CT/CT soft tissue neck w con: Swelling CT soft tissue neck w con 02/08/2024 12:11 PM SIGNS AND SYMPTOMS: Sore throat, right ear pain, left-sided facial droop with history of Newsome's palsy CONTRAST: 90 mL of intravenous Isovue-300 TECHNIQUE: Multidetector CT axial slices of the soft tissues of the neck were obtained with IV contrast. Sagittal and coronal reformats were reconstructed. CT was performed with one or more of the following dose reduction techniques: Automated exposure control, adjustment of the mA and/or kV according to patient size, or use of iterative reconstruction technique. COMPARISON: None FINDINGS: Soft tissues of the orbits are within normal limits. The soft tissues of the infratemporal fossa fossa structures show no acute abnormality. Mucosal surfaces of the nasopharynx, oropharynx, hypopharynx, glottic, and subglottic airways are grossly unremarkable. There are multiple mildly prominent level 2 and level 3 lymph nodes measuring 11 mm in short axis bilaterally. The parotid glands and submandibular glands are within normal limits. Heterogeneous thyroid nodules are noted bilaterally. This most likely represents multinodular goiter. The carotid and jugular circulations are patent. Calcified and noncalcified plaque is noted in the carotid bifurcations. The visualized lung parenchyma shows no acute pathology. No acute bony abnormalities are appreciated. Degenerative changes are noted in the cervical spine. The skull base, craniocervical junction, atlantoaxial joints are within normal limits. Mucosal thickening is noted in the right maxillary sinus. There is a right mastoid and middle ear effusion. CT/CT soft tissue neck w con IMPRESSION: There are multiple mildly prominent level 2 and level 3 lymph nodes measuring 11 mm in short axis bilaterally. There is no mass or abnormal enhancement. There is a right mastoid and middle ear effusion. Heterogeneous thyroid nodules are noted bilaterally. This most likely represents multinodular goiter. Impression dictated by: Cindy Hernandez M.D.02/08/2024 2:13 PM Dictation Location: [place] [address] Transcribed By: [facility] 02/08/24 1413 Dictated By: Cindy Hernandez II, MD 02/08/24 1400 Signed By: 02/08/24 1413 Normal [facility] Complete Blood Count Auto Di ffon 02-08-2024 Basophils (Bld) [#/Vol] 0.2 10*3/uL Normal 0.0-0.2 [facility] Comment on above: Performed By: #### E SR, MONOTEST CMP, CBC #### [address] Basophils/100 WBC (Bld) 1.9 % Normal . [facility] Comment on above: Performed By: #### E SR, MONOTEST, CMP, CBC #### [facility] [address] [place] [address] Eosinophils (Bld) [#/Vol] 0.4 10*3/uL Normal 0.0-0.45 [facility] Comment on above: Performed By: #### E SR, MONOTEST, CMP, CBC #### [address] Eosinophils/100 WBC (Bld) 4.5 % Normal . [facility] Comment on above: Performed By: #### E SR, MONOTEST, CMP, CBC #### [facility] [address] [place] [address] Erythrocyte distribution width (RBC) [Ratio] 13.0 % Normal 11.9-15.3 [facility] Comment on above: Performed By: #### E SR, MONOTEST, CMP, CBC #### [facility] [address] [place] [address] Hematocrit (Bld) [Volume fraction] 36.7 % Normal 34.0-46.4 [facility] Comment on above: Performed By: #### E SR, MONOTEST, CMP, CBC #### [facility] [address] Hemoglobin (Bld) [Mass/Vol] 12.2 g/dL Normal 11.8-15.4 [facility] Comment on above: Performed By: #### E SR, MONOTEST, CMP, CBC #### [address] Lymphocytes (Bld) [#/Vol] 3.1 10*3/uL Normal 1.00-4.8 [facility] Comment on above: Performed By: #### E SR, MONOTEST, CMP, CBC #### [address] Lymphocytes/100 WBC (Bld) 39.4 % Normal . [facility] Comment on above: Performed By: #### E SR, MONOTEST, CMP, CBC #### [address] MCH (RBC) [Entitic mass] 28.5 pg Normal 24.7-34.3 [facility] Comment on above: Performed By: #### E SR, MONOTEST, CMP, CBC #### [address] MCV (RBC) [Entitic vol] 85.5 fL Normal 80-100 [facility] Comment on above: Performed By: #### E SR, MONOTEST, CMP, CBC #### [address] Mean Corpuscular HGB Conc 33.4 g/dL Normal 32.0-35.0 [facility] Comment on above: Performed By: #### E SR, MONOTEST, CMP, CBC #### [address] Monocytes (Bld) [#/Vol] 0.6 10*3/uL Normal 0.0-0.8 [facility] Comment on above: Performed By: #### E SR, MONOTEST, CMP, CBC #### [address] Monocytes/100 WBC (Bld) 17.33 % Normal 0.00-20.00 [facility] Comment on above: Performed By: #### E SR, MONOTEST, CMP, CBC #### [address] Monocytes/100 WBC (Bld) 7.7 % Normal . [facility] Comment on above: Performed By: #### E SR, MONOTEST, CMP, CBC #### [address] Neutrophils (Bld) [#/Vol] 3.7 10*3/uL Normal 1.8-7.7 [facility] Comment on above: Performed By: #### E SR, MONOTEST, CMP, CBC #### [address] Neutrophils/100 WBC (Bld) 46.5 % Normal . [facility] Comment on above: Performed By: #### E SR, MONOTEST, CMP, CBC #### [address] NRBC% 0.3 /100{WBC} Normal 0-0.5 [facility] Comment on above: Performed By: #### E SR, MONOTEST, CMP, CBC #### [address] Platelet mean volume (Bld) [Entitic vol] 8.8 fL Normal 6.3-10.7 [facility] Comment on above: Performed By: #### E SR, MONOTEST, CMP, CBC #### [place] [address] [place] Platelets (Bld) [#/Vol] 374 10*3/uL Normal 150-450 [facility] Comment on above: Performed By: #### E SR, MONOTEST, CMP, CBC #### [address] RBC (Bld) [#/Vol] 4.29 10*6/uL Normal 3.60-5.00 [facility] Comment on above: Performed By: #### E SR, MONOTEST, CMP, CBC #### [facility] [address] [place] [address] WBC (Bld) [#/Vol] 7.9 10*3/uL Normal 3.8-11.6 [facility] Comment on above: Performed By: #### E SR, MONOTEST, CMP, CBC #### [address] Comprehensive Metabolic Pane chely 02-08-2024 Albumin [Mass/Vol] 4.3 g/dL Normal 3.5-5.7 [facility] Comment on above: Performed By: #### E SR, MONOTEST, CMP, CBC #### [address] Albumin/Globulin [Mass ratio] 1.3 {ratio} Normal [facility] Comment on above: Performed By: #### E SR, MONOTEST, CMP, CBC #### [address] ALP [Catalytic activity/Vol] 105 U/L High 34-104 [facility] Comment on above: Performed By: #### E SR, MONOTEST, CMP, CBC #### [address] ALT [Catalytic activity/Vol] 18 U/L Normal 7-52 [facility] Comment on above: Performed By: #### E SR, MONOTEST, CMP, CBC #### [address] Anion gap [Moles/Vol] 11.7 mmol/L Normal 6.0-15.0 [facility] Comment on above: Performed By: #### E SR, MONOTEST, CMP, CBC #### [address] AST [Catalytic activity/Vol] 15 U/L Normal 13-39 [facility] Comment on above: Performed By: #### E SR, MONOTEST, CMP, CBC #### [address] Bilirubin [Mass/Vol] 0.4 mg/dL Normal 0.3-1.0 [facility] Comment on above: Performed By: #### E SR, MONOTEST, CMP, CBC #### [address] Calcium [Mass/Vol] 10.1 mg/dL Normal 8.6-10.3 [facility] Comment on above: Performed By: #### E SR, MONOTEST, CMP, CBC #### [address] Chloride [Moles/Vol] 103 mmol/L Normal 98-107 [facility] Comment on above: Performed By: #### E SR, MONOTEST, CMP, CBC #### [address] CO2 [Moles/Vol] 28.1 mmol/L Normal 21.0-31.0 [facility] Comment on above: Performed By: #### E SR, MONOTEST, CMP, CBC #### [address] Creatinine [Mass/Vol] 0.97 mg/dL Normal 0.60-1.20 [facility] Comment on above: Performed By: #### E SR, MONOTEST, CMP, CBC #### [address] Creatinine Clr Calc Pharmacy 74.15 [facility] Comment on above: Result Comment: PERF ORMED BY: [place] [address] PATHOLOGIST [employer]AN SAMPSON M.D. Performed By: #### E SR, MONOTEST, CMP, CBC #### [address] GFR/1.73 sq M.predicted MDRD (S/P/Bld) [Vol rate/Area] mL/min/{1.73_m2} [facility] Comment on above: Performed By: #### E SR, MONOTEST, CMP, CBC #### [address] Globulin (S) [Mass/Vol] 3.4 g/dL Normal [facility] Comment on above: Performed By: #### E SR, MONOTEST CMP, CBC #### [facility] [address] Glucose [Mass/Vol] 90 mg/dL Normal 70-100 [facility] Comment on above: Result Comment: [facility] Glucose Reference Range is dependent on time and content of last meal. Glucose of more than 200 mg/dL in a nonstressed, ambulatory subject supports the diagnosis of Diabetes Mellitus. ADA recommended reference range Performed By: #### E SR, JADEEST, CMP, CBC #### [address] Potassium [Moles/Vol] 3.8 mmol/L Normal 3.5-5.1 [facility] Comment on above: Performed By: #### E SR, JADEEST CMP, CBC #### [address] Protein [Mass/Vol] 7.7 g/dL Normal 6.4-8.9 [facility] Comment on above: Performed By: #### E SR, MONOTEST, CMP, CBC #### [address] Sodium [Moles/Vol] 139 mmol/L Normal 136-145 [facility] Comment on above: Performed By: #### E SR, MONOTEST, CMP, CBC #### [facility] [address] [place] [address] Urea nitrogen [Mass/Vol] 14 mg/dL Normal 7-25 [facility] Comment on above: Performed By: #### E SR, MONOTEST, CMP, CBC #### [address] Erythrocyte Sedimentation Ra jess 02-08-2024 ESR (Bld) [Velocity] 63 mm/h High 0-19 [facility] Comment on above: Result Comment: PERF ORMED BY: [place] [address] PATHOLOGIST [employer] SAMPSON M.D. Performed By: #### E SR, MONOTEST, CMP, CBC #### [facility] [address] [place] [address] [place] 02-08-2024 Monotest Negative Normal Negative [facility] Comment on above: Result Comment: PERF ORMED BY: [place] [address] PATHOLOGIST [employer] SAMPSON M.D. Performed By: #### E SR, MONOTEST, CMP, CBC #### [address] Throat Cultureon 02-08-2024 Throat culture Heavy Normal Respiratory Ilsa 2 Days PERFORMED BY: [place] [address] PATHOLOGIST [employer] SAMPSON M.D. Normal [facility] Comment on above: Performed By: #### C [place] #### [address] XR chest 2V*on 02-08-2024 XR chest 2V* [facility] [place] [address] [place] [address] XRay Report Signed Patient: Heather Johns MR#: [id number] : 1975 Acct:[id number] Age/Sex: 48 / F ADM Date: 02/08/24 Loc: ER Room: Type: [facility] Attending Dr: Copies to: Richard Coon MD Ordering Provider: Richard Coon MD Date of Service: 02/08/24 XR/XR chest 2V*: Upper Respiratory Infection XR chest 2V* 02/08/2024 12:11 PM SIGNS AND SYMPTOMS: Sore throat, history of Newsome's palsy PROTOCOL: Frontal and lateral radiograph of the chest COMPARISON: None FINDINGS: The trachea is midline. The heart and mediastinal structures are within normal limits. The lung parenchyma is clear. The bony thorax is intact. XR/XR chest 2V* IMPRESSION: No acute cardiopulmonary pathology. Impression dictated by: Cindy Hernandez M.D.02/08/2024 2:44 PM Dictation Location: RADIO-PC-13 Transcribed By: ROWAN 02/08/241443 Dictated By: Cindy Hernandez II, MD 02/08/241443 Signed By: 02/08/241443 [facility] XR chest 2V* [facility] Main [place] [address] [place] [address] XRay Report Signed Patient: Heather Johns MR#: [id number] : 1975 Acct:[id number] Age/Sex: 48 / F ADM Date: 02/08/24 Loc: ER Room: Type: [facility] ER Attending Dr: Copies to: Richard Coon MD Ordering Provider: Richard Coon MD Date of Service: 02/08/24 XR/XR chest 2V*: Upper Respiratory Infection XR chest 2V* 02/08/2024 12:11 PM SIGNS AND SYMPTOMS: Sore throat, history of Newsome's palsy PROTOCOL: Frontal and lateral radiograph of the chest COMPARISON: None FINDINGS: The trachea is midline. The heart and mediastinal structures are within normal limits. The lung parenchyma is clear. The bony thorax is intact. XR/XR chest 2V* IMPRESSION: No acute cardiopulmonary pathology. Impression dictated by: Cindy Hernandez M.D.02/08/2024 2:44 PM Dictation Location: [facility]13 Transcribed By: ROWAN 02/08/241443 Dictated By: Cindy Hernandez II, MD 02/08/241443 Signed By: 02/08/241443 [facility] US Abdomen RUQon 10-19-2023 EXAMINATION: US LIVER/GALL BLADDER/PANCREAS 10/19/2023 10:13 AM CLINICAL HISTORY: abdominal pain ASSOCIATED DIAGNOSIS: Colicky RUQ abdominal pain ORDERING PROVIDER: LEOPOLDO WOODS COMPARISON: US LIVER/GALL BLADDER/PANCREAS 12/04/2022, 8:08 AM TECHNIQUE: Ultrasound real time scan with image documentation of the right upper quadrant including the liver, gallbladder, and pancreas was performed. FINDINGS: Liver Craniocaudal length: 14.9 cm. Echogenicity: Increased hepatic echogenicity and decreased acoustic penetration and conspicuity of the portal triads, compatible with moderate steatosis. Surface nodularity: Not visualized Mass (size and location): None. Bile ducts Intrahepatic ducts: No biliary dilatation. Common bile duct: Normal caliber. Diameter 2 mm. Gallbladder Size and morphology: Normal caliber and wall thickness. Cholelithiasis: None. Pericholecystic fluid: None. Sonographic Duval sign: Absent. Pancreas The pancreatic head and body are unremarkable. Visualization of the tail is limited. Other findings None. IMPRESSION: Moderate hepatic steatosis. No abnormality seen to explain right upper quadrant pain. MACRO: None RADIOLOGY Carl Constantino MD - 10/19/2023 EXAMINATION: US LIVER/GALL BLADDER/PANCREAS 10/19/2023 10:13 AM CLINICAL HISTORY: abdominal pain ASSOCIATED DIAGNOSIS: Colicky RUQ abdominal pain ORDERING PROVIDER: LEOPOLDO WOODS COMPARISON: US LIVER/GALL BLADDER/PANCREAS 12/04/2022, 8:08 AM TECHNIQUE: Ultrasound real time scan with image documentation of the right upper quadrant including the liver, gallbladder, and pancreas was performed. FINDINGS: Liver Craniocaudal length: 14.9 cm. Echogenicity: Increased hepatic echogenicity and decreased acoustic penetration and conspicuity of the portal triads, compatible with moderate steatosis. Surface nodularity: Not visualized Mass (size and location): None. Bile ducts Intrahepatic ducts: No biliary dilatation. Common bile duct: Normal caliber. Diameter 2 mm. Gallbladder Size and morphology: Normal caliber and wall thickness. Cholelithiasis: None. Pericholecystic fluid: None. Sonographic Duval sign: Absent. Pancreas The pancreatic head and body are unremarkable. Visualization of the tail is limited. Other findings None. IMPRESSION: Moderate hepatic steatosis. No abnormality seen to explain right upper quadrant pain. MACRO: None [facility] Radiology Study observation (narrative) [facility], [place] [employer] US Abdomen RUQOrdered By: Luann Constantino on 10-19-2023 [employer] Work Phone: US LIVER/GALL BLADDER/PANCRE ASon 10-19-2023 US LIVER/GALL BLADDER/PANCREAS EXAMINATION: US LIVER/GALL BLADDER/PANCREAS 10/19/2023 10:13 AM CLINICAL HISTORY: abdominal pain ASSOCIATED DIAGNOSIS: Colicky RUQ abdominal pain ORDERING PROVIDER: LEOPOLDO WOODS COMPARISON: US LIVER/GALL BLADDER/PANCREAS 12/04/2022, 8:08 AM TECHNIQUE: Ultrasound real time scan with image documentation of the right upper quadrant including the liver, gallbladder, and pancreas was performed. FINDINGS: Liver Craniocaudal length: 14.9 cm. Echogenicity: Increased hepatic echogenicity and decreased acoustic penetration and conspicuity of the portal triads, compatible with moderate steatosis. Surface nodularity: Not visualized Mass (size and location): None. Bile ducts Intrahepatic ducts: No biliary dilatation. Common bile duct: Normal caliber. Diameter 2 mm. Gallbladder Size and morphology: Normal caliber and wall thickness. Cholelithiasis: None. Pericholecystic fluid: None. Sonographic Duval sign: Absent. Pancreas The pancreatic head and body are unremarkable. Visualization of the tail is limited. Other findings None. IMPRESSION: Moderate hepatic steatosis. No abnormality seen to explain right upper quadrant pain. MACRO: None Normal [employer] Progress Noteson 08-13-2023 Digital Solution Architect Authentication Interface Message Text Gastroenterology Clinic Visit Paulina Jones DO [address] [place] [address] Attending Physician: Dr. Bethany Johnson MD PCP: ISABELLA Leon Last GI visit: 12/05/2022 Last endoscopy: Most recent visit in Gastroenterology was on 06/29/2017 with MSES MANOMETRY Heather Johns is a 48 year old female with a PMHx of psoriasis (on Humira), GARY, HLD, depression/manic behavior and GERD whom we are consulted to see regarding left upper quadrant abdominal pain. Has been there for a week. Is severe ranging 8-10/10 in pain, described as sharp stabbing. Nothing makes it better. Movement make it worse. Not associated with food or bowel movements Has reflux and is on omeprazole 40 mg daily with symptom control Currently taking robaxin and ibuprofen which are prescribed by her PCP and medical marijuana which helps her pain Was seen in ED and work-up including LFTs, BMP, CBC and EKG were non-remarkable.CT abdomen pelvis with no acute process but shows small hiatal hernia that has been seen on prior EGD in 2017 as 2 cm. Patient is anxious that her symptoms are due to hiatal hernia. Past Medical History: Diagnosis Date Anxiety Asthma Depression GERD (gastroesophageal reflux disease) HLD (hyperlipidemia) Hyperthyroidism Manic behavior (HCC) GARY (obstructive sleep apnea) PONV (postoperative nausea and vomiting) Past Surgical History: Procedure Laterality Date COLONOSCOPY N/A 09/16/2016 Procedure: COLONOSCOPY; Surgeon: Alyx Villela MD; Location: [facility]; Service: Gastroenterology ESOPHAGOGASTRODUODENO SCOPY N/A 04/20/2017 Procedure: ESOPHAGOGASTRODUODENO SCOPY; Surgeon: Caio Donahue MD; Location: [facility]; Service: Gastroenterology SEPTOPLASTY N/A 01/08/2018 Procedure: SEPTOPLASTY, turb reduction; Surgeon: Jhony Soler MD; Location: PERIOPERATIVE SERVICES; Service: Otolaryngology TONSILLECTOMY Bilateral 01/08/2018 Procedure: adenoidectomy; Surgeon: Jhony Soler MD; Location: PERIOPERATIVE SERVICES; Service: Otolaryngology No family history on file. Social History Tobacco Use Smoking status: Former Packs/day: 0.25 Years: 34.00 Pack years: 8.50 Types: Cigarettes Smokeless tobacco: Never Substance Use Topics Alcohol use: Yes Comment: socially Drug use: No Allergies Allergen Reactions Morphine Confusion Naproxen Upset Stomach Penicillins Rash Toradol [Ketorolac Tromethamine] Vomiting Tramadol Upset Stomach Current Outpatient Medications Medication Sig Dispense Refill tizanidine (ZANAFLEX) 4 MG tablet Take 1 Tablet by mouth every 6 hours as needed. ibuprofen (MOTRIN) 600 MG tablet Take 600 mg by mouth. duloxetine (CYMBALTA) 30 MG capsule Take 1 Capsule by mouth daily. Tapinarof 1 % CREA Apply 2 g externally daily. 60 g 1 clobetasol (TEMOVATE) 0.05 % cream Apply topically 2 times daily to rash on hands and feet 60 g 3 Adalimumab (Humira Pen) 40 MG/0.4ML PNKT Inject 40 mg under the skin every 14 days. 2 Each 3 calcipotriene (DOVONOX) 0.005 % ointment Apply topically 2 times daily. Apply thin layer to affected area. 60 g 3 naloxone 4 MG/0.1ML LIQD nasal liquid Instill 0.1 mL into one nostril (alternate sides) as needed for Other (Drug overdose, give and call 911) for up to 1 dose Indications: Opioid Overdose. 1 Each 1 eucerin (DERMACERIN) cream Apply topically as needed. Apply thin layer to affected area. 1 Tube 1 triamcinolone 0.1 % cream Apply topically 2 times daily. Apply thin layer to affected area. 30 g 0 omeprazole (PRILOSEC) 40 MG capsule Take 1 Capsule by mouth daily. 60 Capsule 3 sodium chloride (OCEAN NASAL SPRAY) 0.65 % nasal spray Instill 4 Sprays into each nostril 4 times daily. 2 Bottle 3 Linaclotide 145 MCG CAPS capsule Take 1 Capsule by mouth daily. 30 Capsule 3 albuterol (PROVENTIL HFA) inhaler 90 mcg/inh Inhale 2 Puffs. fluticasone (FLOVENT HFA) 110 MCG/ACT inhaler Inhale 2 Puffs. atorvastatin (LIPITOR) 20 MG tablet Take 20 mg by mouth daily. lamotrigine (LAMICTAL) 100 MG tablet Take 100 mg by mouth daily. No current facility-administered medications for this visit. Review of Systems Constitutional: Negative for fever and weight loss. Eyes: Negative for blurred vision and double vision. Respiratory: Negative for cough and hemoptysis. Gastrointestinal: Positive for abdominal pain. Negative for constipation, diarrhea, heartburn, nausea and vomiting. Musculoskeletal: Negative. Negative for myalgias and neck pain. Neurological: Negative for dizziness, tingling and headaches. Psychiatric/Behaviora l: Negative. Negative for depression. Physical Exam Constitutional: Appearance: Normal appearance. HENT: Head: Normocephalic. Neurological: General: No focal deficit present. Mental Status: She is alert and oriented to person, place, and time. Cranial Nerves: No cranial nerve deficit. Psychiatric: Mood and Affect: Mood normal. Co (more content not included)... Normal [facility] [employer] Authentication Interface Message Text Patient was identified by name and date of . George BowensPatient at risk for falls:No Falls Risk protocol implemented: No Normal [facility] BASIC METABOLIC PANELon 09-0 Anion gap [Moles/Vol] 14 mmol/L Normal - [facility] Comment on above: Performed By: #### L IP, CH8, HEPATIC #### [facility] [address] [place] [address], [id number] Calcium [Mass/Vol] 9.8 mg/dL Normal 8.4-10.4 The [facility] Comment on above: Performed By: #### L IP, CH8, HEPATIC #### [facility] [address] [place] [address], Chloride [Moles/Vol] 106 mmol/L Normal 97-111 The [facility] Comment on above: Performed By: #### L IP, CH8, HEPATIC #### [facility] [address] [place] [address], CO2 [Moles/Vol] 22 mmol/L Normal 21-30 The [facility] Comment on above: Performed By: #### L IP, CH8, HEPATIC #### [facility] [address] [place] [address], Creatinine [Mass/Vol] 0.99 mg/dL Normal 0.50-1.10 The [facility], [place] [employer] [facility] Comment on above: Performed By: #### L IP, CH8, HEPATIC #### [facility] [address] [place] [address], ESTIMATED GFR (CKD-EPI) 70 mL/min/1.73sqm Normal >=60 The [facility] Comment on above: Result Comment: 2020 CKD EPI Equation using Creatinine without Race Comment: Estimated glomerular filtration rate (eGFR) is calculated without a race coefficient. Values should be interpreted in the context of the patient's full clinical presentation. Reference: 1. Josias C, Kraig M, Shandra STEPHEN, et al.. A Unifying Approach for GFR Estimation: Recommendations of the NKF-ASN Task Force on Reassessing the Inclusion of Race in Diagnosing Kidney Disease. [place] Journal of Kidney Diseases 2021;79(2):268-88.e1. 2. N Engl J Med 1 Vol. 385 Issue 19 Pages 8538-7924 Performed By: #### L IP, CH8, HEPATIC #### [facility] [address] [place] [address], Glucose [Mass/Vol] 109 mg/dL Normal 68-110 The [facility] Comment on above: Performed By: #### L IP, CH8, HEPATIC #### [facility] [address] [place] [address], Potassium [Moles/Vol] 4.4 mmol/L Normal 3.3-5.3 The [facility] Comment on above: Performed By: #### L SKYE JOLLY8, HEPATIC #### [facility] [address], [place], Sodium [Moles/Vol] 138 mmol/L Normal 135-148 The [facility] Comment on above: Performed By: #### L SKYE JOLLY8, HEPATIC #### [facility] [address], [place], Urea nitrogen [Mass/Vol] 22 mg/dL Normal 8-22 The [facility] Comment on above: Performed By: #### L SKYE JOLLY8, HEPATIC #### [facility] [address], [place], Basic metabolic 2000 panelon 08-08-2023 Anion gap [Moles/Vol] 14 mmol/L 10 - 20 [facility] Calcium [Mass/Vol] 9.8 mg/dL 8.4 - 10. 4 mg/dL [facility] Chloride [Moles/Vol] 106 mmol/L 97 - 111 mmol/L [facility] CO2 [Moles/Vol] 22 mmol/L 21 - 30 mmol/L [facility] Creatinine [Mass/Vol] 0.99 mg/dL 0.50 - 1.10 mg/dL [facility] GFR/1.73 sq M.predicted MDRD (S/P/Bld) [Vol rate/Area] 70 mL/min/{1.73_m2} [facility] Comment on above: 2020 CKD EPI Equatio n using Creatinine without Race Comment: Estimated glomerular filtration rate (eGFR) is calculated without a race coefficient. Values should be interpreted in the context of the patient's full clinical presentation. Reference: 1. Josias C, Kraig M, Shandra DC, et al.. A Unifying Approach for GFR Estimation: Recommendations of the NKF-ASN Task Force on Reassessing the Inclusion of Race in Diagnosing Kidney Disease. [place] Journal of Kidney Diseases 202;79(2):268-88.e1. 2. N Engl J Med 1 Vol. 385 Issue 19 Pages 3082-0183 Glucose [Mass/Vol] 109 mg/dL 68 - 110 mg/dL [facility] Interpretation and review of laboratory results Normal [facility] Potassium [Moles/Vol] 4.4 mmol/L 3.3 - 5.3 mmol/L [facility] Sodium [Moles/Vol] 138 mmol/L 135 - 148 mmol/L [facility] Urea nitrogen [Mass/Vol] 22 mg/dL 8 - 22 mg/dL [facility] CBC WITH DIFFERENTIALon Basophils (Bld) [#/Vol] 0.28 10*3/uL High 0.00-0.20 The [facility] Comment on above: Performed By: #### D NIC #### [facility] [address] [place] [address], Basophils/100 WBC (Bld) 3.3 % High <=1.9 The [facility] Comment on above: Performed By: #### Brian NIC #### [facility] [address] [place] [address], Eosinophils (Bld) [#/Vol] 0.37 10*3/uL Normal 0.00-0.70 The [facility] Comment on above: Performed By: #### Brian NIC #### [facility] [address], [place], Eosinophils/100 WBC (Bld) 4.5 % High 0.1-4.0 The [facility] Comment on above: Performed By: #### Brian NIC #### [facility] [address], [place], Erythrocyte distribution width (RBC) [Ratio] 12.6 % Normal 11.5-14.5 The [facility] Comment on above: Performed By: #### Brian NIC #### [facility] [address], [place], Hematocrit (Bld) [Volume fraction] 39.5 % Normal 36.0-46.0 The [facility] Comment on above: Performed By: #### Brian NIC #### [facility] [address], [place], Hemoglobin (Bld) [Mass/Vol] 12.9 g/dL Normal 12.0-15.0 The [facility] Comment on above: Performed By: #### Brian NIC #### [facility] [address], [place], Lymphocytes (Bld) [#/Vol] 3.85 10*3/uL Normal 1.00-4.80 [facility] Comment on above: Performed By: #### Brian NIC #### [facility] [address], [place], Lymphocytes/100 WBC (Bld) 46.5 % High 24.0-44.0 [facility] Comment on above: Performed By: #### Brian NIC #### [facility] [address], [place], MCH (RBC) [Entitic mass] 29.4 pg Normal 26.0-34.0 [facility] Comment on above: Performed By: #### Brian NIC #### [facility] [address], [place], MCHC (RBC) [Mass/Vol] 32.7 g/dL Normal 32.0-35.9 [facility] Comment on above: Performed By: #### Brian NIC #### [facility] [address] [place] [address], MCV (RBC) [Entitic vol] 90 fL Normal 80-100 [facility] Comment on above: Performed By: #### Brian NIC #### [facility] [address] [place] [address], MONOCYTE DISTRIBUTION WIDTH Normal The [facility] Comment on above: Performed By: #### Brian NIC #### [facility] [address], [place], Monocytes (Bld) [#/Vol] 0.64 10*3/uL Normal 0.20-1.00 [facility] Comment on above: Performed By: #### Brian NIC #### [facility] [address], [place], Monocytes/100 WBC (Bld) 7.7 % Normal 2.0-11.0 [facility] Comment on above: Performed By: #### Brian NIC #### [facility] [address], [place], Neutrophils (Bld) [#/Vol] 3.14 10*3/uL Normal 1.50-8.00 The [facility] Comment on above: Performed By: #### Brian NIC #### [facility] [address], [place], Neutrophils/100 WBC (Bld) 38.0 % Normal 31.0-76.0 The [facility] Comment on above: Performed By: #### Brian NIC #### [facility] [address], [place], Platelet mean volume (Bld) [Entitic vol] 9.6 fL Normal 7.5-11.2 The [facility] Comment on above: Performed By: #### Brian NIC #### [facility] [address], [place], Platelets (Bld) [#/Vol] 328 10*3/uL Normal 150-400 The [facility] Comment on above: Performed By: #### Brian NIC #### [facility] [address], [place], RBC (Bld) [#/Vol] 4.40 10*6/uL Normal 4.00-5.20 The [facility] Comment on above: Performed By: #### Brian NIC #### [facility] [address], [place], WBC (Bld) [#/Vol] 8.3 10*3/uL Normal 4.5-11.5 The [facility] Comment on above: Performed By: #### Brian NIC #### [facility] [address], [place], Basophils (Bld) [#/Vol] 0.28 10*3/uL High 0.00 - 0.20 K/uL [facility] Basophils/100 WBC (Bld) 3.3 % High NINF - 1.9 % [facility] Eosinophils (Bld) [#/Vol] 0.37 10*3/uL 0.00 - 0.70 K/uL [facility] Eosinophils/100 WBC (Bld) 4.5 % High 0.1 - 4.0 % [facility] Erythrocyte distribution width (RBC) [Ratio] 12.6 % 11.5 - 14.5 % [facility] Hematocrit (Bld) [Volume fraction] 39.5 % 36.0 - 46.0 % [facility] Hemoglobin (Bld) [Mass/Vol] 12.9 g/dL 12.0 - 15.0 g/dL [facility] Interpretation and review of laboratory results Abnormal [facility] Lymphocytes (Bld) [#/Vol] 3.85 10*3/uL 1.00 - 4.80 K/uL [facility] Lymphocytes/100 WBC (Bld) 46.5 % High 24.0 - 44.0 % [facility] MCH (RBC) [Entitic mass] 29.4 pg 26.0 - 34.0 pg [facility] MCHC (RBC) [Mass/Vol] 32.7 g/dL 32.0 - 35.9 g/dL [facility] MCV (RBC) [Entitic vol] 90 fL 80 - 100 fL [facility] Monocyte distribution width Auto (Bld) [Entitic vol] [facility] Monocytes (Bld) [#/Vol] 0.64 10*3/uL 0.20 - 1.00 K/uL [facility] Monocytes/100 WBC (Bld) 7.7 % 2.0 - 11.0 % [facility] Neutrophils (Bld) [#/Vol] 3.14 10*3/uL 1.50 - 8.00 K/uL [facility] Neutrophils/100 WBC (Bld) 38.0 % 31.0 - 76.0 % [facility] Platelet mean volume (Bld) [Entitic vol] 9.6 fL 7.5 - 11.2 fL [facility] Platelets (Bld) [#/Vol] 328 10*3/uL 150 - 400 K/uL [facility] RBC (Bld) [#/Vol] 4.40 10*6/uL [facility] WBC (Bld) [#/Vol] 8.3 10*3/uL 4.5 - 11.5 K/uL [facility] ABD/[facility] ED I/V IVÁN W / CONTRASTon 08-08-2023 CT ABD/PELVIS ED I/V IVÁN W/ CONTRAST EXAMINATION: CT ABD/PELVIS ED I/V IVÁN W/ CONTRAST 08/08/2023 06:51 PM CLINICAL HISTORY: abdominal pain, tenderness LUQ and epigastric ASSOCIATED DIAGNOSIS: abdominal pain, tenderness LUQ and epigastric ORDERING PROVIDER: PAULINA JONES TECHNOLOGISTS NOTE: COMPARISON: US SPLEEN 12/04/2022, 8:07 AM US GALLBLADDER+BILIARY SYSTEM 06/25/2017, 8:41 AM TECHNIQUE: Contiguous axial images were obtained through the abdomen and pelvis from the level of the diaphragmatic domes through the pubic symphysis following bolus administration of intravenous contrast. MPR sagittal and coronal reconstructions were obtained from the axial data. Before infusion of intravenous contrast, radiology personnel investigated the possibility of an allergic history and of any history of reaction to iodinated contrast material. Contrast Protocol: Omnipaque 350 [>or =100lb] 100 ml [<100 lb] 1 ml per 1 lb. INTRA-PROCEDURE MEDS: iohexol (OMNIPAQUE) 350 MG/ML injection 100 mL Route: Intravenous Push FINDINGS: Included images of the lower thorax: No focal lung consolidation or pleural effusion. Subsegmental atelectasis/scarring in the left lower lobe. Hepatobiliary: Unremarkable liver without biliary dilation. Pancreas: Unremarkable Spleen: Unremarkable Adrenal Glands: Unremarkable Kidneys, ureters, and bladder: No calculi or hydroureteronephrosis . Abdominal and pelvic vasculature: Atherosclerotic wall calcifications are present without aneurysm. GI tract: Small hiatal hernia. No evidence of obstruction. Appendectomy. Peritoneum and retroperitoneum: No free fluid or free air. Lymph Nodes: No abdominal or pelvic lymphadenopathy. Uterus and adnexa: Status post hysterectomy. Visualized musculoskeletal structures: No acute fracture or destructive osseous lesion is identified. IMPRESSION: 1. No acute process within the abdomen or pelvis. 2. Small hiatal hernia. MACRO: None Normal [facility] CT Abdomen and Pelvis W cont rast IVOrdered By: Don Stoll on 08-08-2023 CT DLP 693.9 (mGy.cm) [facility] [facility] Work Phone: CT Series Abdomen [employer] Work Phone: CTDI VOL 12.6 (mGy) [employer] Work Phone: PHANTOM TYPE IEC Body Dosimetry [employer] Work Phone: [facility] Work Phone: CT Abdomen and Pelvis W cont rast Charlene 08-08-2023 EXAMINATION: CT ABD/PELVIS ED I/V IVÁN W/ CONTRAST 08/08/2023 06:51 PM CLINICAL HISTORY: abdominal pain, tenderness LUQ and epigastric ASSOCIATED DIAGNOSIS: abdominal pain, tenderness LUQ and epigastric ORDERING PROVIDER: PAULINA JONES TECHNTIEN NOTE: COMPARISON: US SPLEEN 12/04/2022, 8:07 AM US GALLBLADDER+BILIARY SYSTEM 06/25/2017, 8:41 AM TECHNIQUE: Contiguous axial images were obtained through the abdomen and pelvis from the level of the diaphragmatic domes through the pubic symphysis following bolus administration of intravenous contrast. MPR sagittal and coronal reconstructions were obtained from the axial data. Before infusion of intravenous contrast, radiology personnel investigated the possibility of an allergic history and of any history of reaction to iodinated contrast material. Contrast Protocol: Omnipaque 350 [>or =100lb] 100 ml [<100 lb] 1 ml per 1 lb. INTRA-PROCEDURE MEDS: iohexol (OMNIPAQUE) 350 MG/ML injection 100 mL Route: Intravenous Push FINDINGS: Included images of the lower thorax: No focal lung consolidation or pleural effusion. Subsegmental atelectasis/scarring in the left lower lobe. Hepatobiliary: Unremarkable liver without biliary dilation. Pancreas: Unremarkable Spleen: Unremarkable Adrenal Glands: Unremarkable Kidneys, ureters, and bladder: No calculi or hydroureteronephrosis . Abdominal and pelvic vasculature: Atherosclerotic wall calcifications are present without aneurysm. GI tract: Small hiatal hernia. No evidence of obstruction. Appendectomy. Peritoneum and retroperitoneum: No free fluid or free air. Lymph Nodes: No abdominal or pelvic lymphadenopathy. Uterus and adnexa: Status post hysterectomy. Visualized musculoskeletal structures: No acute fracture or destructive osseous lesion is identified. IMPRESSION: 1. No acute process within the abdomen or pelvis. 2. Small hiatal hernia. MACRO: None RADIOLOGY Don Stoll MD - 08/08/2023 EXAMINATION: CT ABD/PELVIS ED I/V IVÁN W/ CONTRAST 08/08/2023 06:51 PM CLINICAL HISTORY: abdominal pain, tenderness LUQ and epigastric ASSOCIATED DIAGNOSIS: abdominal pain, tenderness LUQ and epigastric ORDERING PROVIDER: PAULINA JONES TECHNOLOGISTS NOTE: COMPARISON: US SPLEEN 12/04/2022, 8:07 AM US GALLBLADDER+BILIARY SYSTEM 06/25/2017, 8:41 AM TECHNIQUE: Contiguous axial images were obtained through the abdomen and pelvis from the level of the diaphragmatic domes through the pubic symphysis following bolus administration of intravenous contrast. MPR sagittal and coronal reconstructions were obtained from the axial data. Before infusion of intravenous contrast, radiology personnel investigated the possibility of an allergic history and of any history of reaction to iodinated contrast material. Contrast Protocol: Omnipaque 350 [>or =100lb] 100 ml [<100 lb] 1 ml per 1 lb. INTRA-PROCEDURE MEDS: iohexol (OMNIPAQUE) 350 MG/ML injection 100 mL Route: Intravenous Push FINDINGS: Included images of the lower thorax: No focal lung consolidation or pleural effusion. Subsegmental atelectasis/scarring in the left lower lobe. Hepatobiliary: Unremarkable liver without biliary dilation. Pancreas: Unremarkable Spleen: Unremarkable Adrenal Glands: Unremarkable Kidneys, ureters, and bladder: No calculi or hydroureteronephrosis . Abdominal and pelvic vasculature: Atherosclerotic wall calcifications are present without aneurysm. GI tract: Small hiatal hernia. No evidence of obstruction. Appendectomy. Peritoneum and retroperitoneum: No free fluid or free air. Lymph Nodes: No abdominal or pelvic lymphadenopathy. Uterus and adnexa: Status post hysterectomy. Visualized musculoskeletal structures: No acute fracture or destructive osseous lesion is identified. IMPRESSION: 1. No acute process within the abdomen or pelvis. 2. Small hiatal hernia. MACRO: None [facility] Radiology Study observation (narrative) [facility] D-DIMERon 08-08-2023 DIMER < 200 Normal <230 [facility] [employer] [facility] Comment on above: Order Comment: A D-D nic result of <230 ng/mL DDU has a high negative predictive value for DVT and PE when combined with a clinical assessment of low to moderate probability. This cut-off value is specific for HemosIL D-dimer assay and values obtained using different methods may not be used interchangeably. Performed By: #### D NIC #### [facility] [address] [place] [address], [id number] Fibrin D-dimer DDU (PPP) [Mass/Vol] NINF [facility] Interpretation and review of laboratory results Normal [facility] A D-Dimer result of <230 ng/mL DDU has a high negative predictive value for DVT and PE when combined with a clinical assessment of low to moderate probability. This cut-off value is specific for HemosIL D-dimer assay and values obtained using different methods may not be used interchangeably. [facility] ED Provider Noteson 08-08-20 Digital Solution Architect Authentication Interface Message Text Robert for Roby: CT a/pw/ NAD, d dimer less than 200 making PE or AD less likley, pt's feeling better, re exam: abdomen w/ + BS, ND, mild LUQ tenderness, no guarding/rebound. Stable for outpatient management Normal [facility] [employer] [facility] Digital Solution Architect Authentication Interface Message Text EMERGENCY DEPARTMENT - VISIT NOTE --------- HISTORY OF PRESENT ILLNESS ----- Chief Complaint Patient presents with Abdominal pain Epigastric pain x1.5 weeks. Pt states she thinks she has a hernia. Home Health Assistant: not needed - patient preferred language is Belarusian. The history is provided by the Patient. Heather Johns is a 48 year old female presenting to the ED for pain under left breast x 2 weeks. States she was reaching over to retreive phone from floor of car and felt a 'pop' and immediate pain. Pt reports she has h/o hiatal hernia and thinks pain may be related to that, however, pt also admits she has not had this left chest pain previously. States went to OSH at that time pain started and had xray which was unremarkable and told she had a 'pulled muscle'. Pain has been present since then and getting worse. Takes ibuprofen at home w/o relief. Also uses medial marijuna at home w/o relif. Pain is sharp, mainly constant but waxes and wanes. Pt also c/o nausea and food feels like sits in esophagus and chest. Pain worse w/ movement and eating. Also reports sob. Pain is worse w/ breathing and feels SOB. Pt denies vomiting. Has been having BM- no change. Had BM today. H/o bronchitis and has been having cough w/ clear phlegm. Denies fever. Denies leg pain, leg swelling. Pt states she quit tob use but does use medical marijuana. Denies recent hospitalization, recent travel. Pt is s/p appy and s/p hysterectomy. Pt reports she is allergic to morphine but has had dilaudid in the past w/o side effects or allergic reaction. not currently taking a PP when medications reviewed w/ patient. REVIEW OF SYSTEMS Per hpi, no longer uses humira for psoriasis, PAST HISTORY Pertinent Past History: h/o anxiety, HL, psoriasis Past Medical History: Diagnosis Date Anxiety Asthma Depression GERD (gastroesophageal reflux disease) HLD (hyperlipidemia) Hyperthyroidism Manic behavior (HCC) GARY (obstructive sleep apnea) PONV (postoperative nausea and vomiting) Patient Active Problem List: Chest pain [R07.9] Depression [F32.A] Indigestion [K30] Gastroesophageal reflux disease [K21.9] Fatty liver [K76.0] History of thyroid disease [Z86.39] Irritable bowel syndrome with constipation [K58.1] Psoriasis [L40.9] GARY (obstructive sleep apnea) [G47.33] Inadequate sleep hygiene [Z72.821] Nose abnormality [Q30.9] Adenoid hypertrophy [J35.2] Hypertrophy of nasal turbinates [J34.3] Deviated nasal septum [J34.2] Lumbosacral radiculopathy [M54.17] Chronic pain syndrome [G89.4] Cervical radicular pain [M54.12] Lumbar radicular pain [M54.16] Therapy [Z51.89] Cervical radiculopathy at C5 [M54.12] Myelopathy (HCC) [G95.9] Herniated lumbar intervertebral disc [M51.26] Lumbar spondylosis [M47.816] Lumbar radiculopathy [M54.16] Herniated disc, cervical [M50.20] Pertinent Social History: Social History Tobacco Use Smoking status: Former Packs/day: 0.25 Years: 34.00 Pack years: 8.50 Types: Cigarettes Smokeless tobacco: Never Substance Use Topics Alcohol use: Yes Comment: socially Drug use: No PHYSICAL EXAM - BP (!) 145/102 Pulse 95 Temp 98 ???F (36.7 ???C) (Oral) Resp 18 SpO2 97% Exam: Constitutional: Nursing triage notes reviewed, Vital signs reviewed, Alert, Awake, and appears mildly uncomfortable HENT: Oropharynx clear, no plaques or exudates and Mucous membranes moist Eyes: Pupils equal round and reactive to light, Extraocular muscles intact, and Normal conjuctiva without pallor Neck: Supple Lung: Clear to auscultation Cardiac: Regular rate and rhythm, moderate tenderness over anterior chest wall inferior to left breast Abdomen: Soft, Nondistended, and Tender mild Epigastric and RUQ and LUQ : No CVAT Back: No midline bony tenderness to thoracic/lumbar/sacra l spines Ext: Full ROM all 4 extremities, Normal peripheral perfusion and pulses, and No calf tenderness, no edema Neuro: Alert normally oriented, Normal speech, and moves all extremities w/ equal strength Skin: No rash or lesion, Warm, and Dry Psych: Good eye contact, Cooperative, and mildly anxious MEDICAL DECISION MAKING and ED COURSE Nursing triage and assessment notes reviewed and incorporated. Review of External (Non- ED) Notes: [facility] ED notes from 2016 reviewed and show EGD w/ hiatal hernia Management Decisions: Diagnoses considered include left chest pain includes PE, muscle strain, GERD, low suspicion for ACS based on normal ekg and history and duration of sx. No evidence of PNA or PTX on cxr. Low suspicion for SBO based on hx and exam. Doubt biliary (more content not included)... Normal The [facility], [place], [facility] HEPATIC FUNCTION PANELon Albumin [Mass/Vol] 4.3 g/dL Normal 3.4-5.1 [facility] Comment on above: Performed By: #### L SKYE JOLLY8, HEPATIC #### [facility] [address] [place] [address], ALK 79 IU/L Normal 40-200 [facility] Comment on above: Performed By: #### L TWYLA JOLLY, HEPATIC #### [facility] [address] [place] [address], ALT [Catalytic activity/Vol] 17 U/L Normal 7-40 The [facility], [place] Comment on above: Performed By: #### L TWYLA JOLLY, HEPATIC #### [facility] [address] [place] [address], AST [Catalytic activity/Vol] 13 U/L Normal 7-40 The [facility], [place] Comment on above: Performed By: #### L SKYE JOLLY8, HEPATIC #### [facility] [address] [place] [address], Bilirubin [Mass/Vol] 0.4 mg/dL Normal 0.1-1.5 The [facility] Comment on above: Performed By: #### L TWYLA JOLLY, HEPATIC #### [facility] [address] [place] [address], Bilirubin.direct [Mass/Vol] 0.06 mg/dL Low 0.10-0.30 The [facility], [place] Comment on above: Performed By: #### L SKYE JOLLY8, HEPATIC #### [facility] [address] [place] [address], Protein [Mass/Vol] 7.4 g/dL Normal 6.2-8.3 [facility] Comment on above: Performed By: #### L SKYE JOLLY8, HEPATIC #### [facility] [address], [place], Albumin [Mass/Vol] 4.3 g/dL 3.4 - 5.1 g/dL [facility] ALP [Catalytic activity/Vol] 79 U/L [facility] ALT [Catalytic activity/Vol] 17 U/L [facility] AST [Catalytic activity/Vol] 13 U/L [facility] Bilirubin [Mass/Vol] 0.4 mg/dL 0.1 - 1.5 mg/dL [facility] Bilirubin.direct [Mass/Vol] 0.06 mg/dL Low 0.10 - 0.30 mg/dL [facility] Interpretation and review of laboratory results Abnormal [facility] Protein [Mass/Vol] 7.4 g/dL 6.2 - 8.3 g/dL [facility] LIPASEon 08-08-2023 LIP 12 IU/L Normal <128 The [facility] Comment on above: Performed By: #### L IP, CH8, HEPATIC #### [facility] [address], [place], Interpretation and review of laboratory results Normal [facility] Lipase [Catalytic activity/Vol] 12 U/L [facility] No Panel Informationon 08-08 [facility] Progress Noteson 08-08-2023 Digital Solution Architect Authentication Interface Message Text Maya, Per 07/21/23 follow-up, patient is no longer using Humira until further notice due to possible respiratory infection. Patient now treating with topicals for now. Will hold Humira renewal until we hear further instruction for MD or patient. Normal The [facility] URINALYSISon 08-08-2023 Glucose Ql (U) Negative Normal Negative The [facility] Comment on above: Order Comment: A D-D nic result of <230 ng/mL DDU has a high negative predictive value for DVT and PE when combined with a clinical assessment of low to moderate probability. This cut-off value is specific for HemosIL D-dimer assay and values obtained using different methods may not be used interchangeably. Performed By: #### D NIC #### [facility] [address], [place], SQUAMOUS EPITHELIAL 0-2 Normal 0-10 The [facility] Comment on above: Order Comment: A D-D nic result of <230 ng/mL DDU has a high negative predictive value for DVT and PE when combined with a clinical assessment of low to moderate probability. This cut-off value is specific for HemosIL D-dimer assay and values obtained using different methods may not be used interchangeably. Performed By: #### D NIC #### [facility] [address] [place] [address], U APPEAR Clear Normal Clear [facility] Comment on above: Order Comment: A D-D nic result of <230 ng/mL DDU has a high negative predictive value for DVT and PE when combined with a clinical assessment of low to moderate probability. This cut-off value is specific for HemosIL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 PNKT Inject 40 mg under the skin every 14 days. 2 Each 3 naloxone 4 MG/0.1ML LIQD nasal liquid Instill 0.1 mL into one nostril (alternate sides) as needed for Other (Drug overdose, give and call 911) for up to 1 dose Indications: Opioid Overdose. 1 Each 1 eucerin (DERMACERIN) cream Apply topically as needed. Apply thin layer to affected area. 1 Tube 1 triamcinolone 0.1 % cream Apply topically 2 times daily. Apply thin layer to affected area. 30 g 0 omeprazole (PRILOSEC) 40 MG capsule Take 1 Capsule by mouth daily. 60 Capsule 3 sodium chloride (OCEAN NASAL SPRAY) 0.65 % nasal spray Instill 4 Sprays into each nostril 4 times daily. 2 Bottle 3 amitriptyline (ELAVIL) 25 MG tablet Take 1 Tablet by mouth at bedtime. 30 Tablet 0 Linaclotide 145 MCG CAPS capsule Take 1 Capsule by mouth daily. 30 Capsule 3 albuterol (PROVENTIL HFA) inhaler 90 mcg/inh Inhale 2 Puffs. fluticasone (FLOVENT HFA) 110 MCG/ACT inhaler Inhale 2 Puffs. atorvastatin (LIPITOR) 20 MG tablet Take 20 mg by mouth daily. sertraline (ZOLOFT) 25 MG tablet Take 150 mg by mouth daily. lamotrigine (LAMICTAL) 100 MG tablet Take 100 mg by mouth daily. No current facility-administered medications for this visit. PHYSICAL EXAMINATION: BP 106/74 Pulse 98 Temp 97.7 ???F (36.5 ???C) (Temporal) Wt 173 lb (78.5 kg) BMI 28.79 kg/m??? BMI was 27.46 kg/sq m on 10/07/2019 (weight 74.8 kg, height 5' 5 ) Gen: NAD HEENT: No scleral icterus, moist mucous membranes Lungs: Clear to auscultation bilaterally CVS: regular rate and rhythm Abd: Soft, nontender, nondistended, +BS, no HSM Ext: No edema Skin: Warm and dry Neuro: No gross episodes Labs: CBC (last 3 years, up to 5 values) WBC RBC Hgb Hct MCV RDW Plt 11/12/221923 4.5 4.44 13.1 39.3 89 12.9 254 Basic Metabolic Panel Na K Cl CO2 Gap Glu BUN Cr Ca 11/12/221923 139 4.4 Comment: Hemolysis present 104 27 12 90 21 0.92 9.2 LFT's (last 3 years, up to 5 values) None EGD 2016 Procedure(s): ESOPHAGOGASTRODUODENO SCOPY MODERATE SEDATION: Oxygen 2L/NC, Demerol 75 mg IV/Versed 3 mg IV G (more content not included)... Normal [facility] Digital Solution Architect Authentication Interface Message Text Patient was identified by name and date of . Arielle Tariq Patient at risk for falls:Yes Falls Risk protocol implemented: no Normal [facility] XR KNEES RIGHT AND LEFT ROMAN DING AP/LATon 12-05-2022 XR KNEES RIGHT AND LEFT STANDING AP/LAT EXAMINATION: XR KNEES RIGHT AND LEFT STANDING AP/LATPRO/RT 12/04/2022 07:18 AM CLINICAL HISTORY: Reason for Exam: Acute pain of knee ASSOCIATED DIAGNOSIS: Acute pain of both knees Acute pain of both knees ORDERING PROVIDER: KASH HILTON TECHNOLOGISTS NOTE: COMPARISON: None FINDINGS: IMPRESSION: Osteopenia and evidence of prior growth arrest lines. No fracture or bone destruction. Joint spaces are radiographically preserved. If there is persistence of complaint or concern, MR examination can be done. Right and left knee standing MACRO: None Normal [facility] US LIVER/GALL BLADDER/PANCRE ASon 12-04-2022 US LIVER/GALL BLADDER/PANCREAS EXAMINATION: US LIVER/GALL BLADDER/PANCREAS 12/04/2022 07:58 AM CLINICAL HISTORY: Reason for Exam: Dyspepsia, RUQ pain ASSOCIATED DIAGNOSIS: Dyspepsia RUQ pain ORDERING PROVIDER: LEOPOLDO WOODS COMPARISON: US GALLBLADDER+BILIARY SYSTEM 06/25/2017, 8:41 AM TECHNIQUE: Ultrasound real time scan with image documentation of the right upper quadrant including the liver, gallbladder, and pancreas was performed. FINDINGS: Liver Craniocaudal length: 15.3 cm. Echogenicity: Mildly increased hepatic echogenicity with decreased conspicuity of the portal triads, compatible with mild steatosis. Surface nodularity: Not visualized Mass (size and location): None. Bile ducts Intrahepatic ducts: No biliary dilatation. Common bile duct: Normal caliber. Diameter 3 mm. Gallbladder Size and morphology: Normal caliber and wall thickness. Cholelithiasis: None Pericholecystic fluid: None. Sonographic Duval sign: Absent. Pancreas The pancreatic head and body are unremarkable. Visualization of the tail is limited. Other findings None. IMPRESSION: 1. Mild hepatic steatosis without a suspicious hepatic lesion. 2. No cholelithiasis or evidence of acute cholecystitis. MACRO: None Normal [facility] US SPLEENon 12-04-2022 US SPLEEN EXAMINATION: US SPLEENPRO/REP 12/04/2022 08:06 AM CLINICAL HISTORY: Reason for Exam: pain ASSOCIATED DIAGNOSIS: RUQ abdominal pain ORDERING PROVIDER: LEOPOLDO WOODS COMPARISON: None TECHNIQUE: Ultrasound real time scan with image documentation of the spleen were obtained. FINDINGS: The spleen measures 8.8 x 3 x 3.1 cm The spleen is normal in size and demonstrates normal homogeneous echogenicity. No perisplenic collection is seen. IMPRESSION: Unremarkable ultrasound of the spleen. MACRO: None Normal The [facility] [place] BASIC METABOLIC PANELon 12-1 Anion gap [Moles/Vol] 12 mmol/L Normal 10-20 The [facility] [place] Comment on above: Performed By: #### C H8 #### [facility] [address] [place], [address] Calcium [Mass/Vol] 9.2 mg/dL Normal 8.4-10.4 The [facility] Comment on above: Performed By: #### C H8 #### [facility] [address] [place], [address] Chloride [Moles/Vol] 104 mmol/L Normal 97-111 The [facility] [place] Comment on above: Performed By: #### C H8 #### [facility] [address] [place], [address] CO2 [Moles/Vol] 27 mmol/L Normal 21-30 The [facility] Comment on above: Performed By: #### C H8 #### [facility] [address] [place], [address] Creatinine [Mass/Vol] 0.92 mg/dL Normal 0.50-1.10 The [facility] Comment on above: Performed By: #### C H8 #### [facility] [address] [place], [address] ESTIMATED GFR (CKD-EPI) 77 mL/min/1.73sqm Normal >=60 The [facility] Comment on above: Result Comment: 2020 CKD EPI Equation using Creatinine without Race Comment: Estimated glomerular filtration rate (eGFR) is calculated without a race coefficient. Values should be interpreted in the context of the patient's full clinical presentation. Reference: 1. Josias C, Kraig M, Shandra STEPHEN, et al.. A Unifying Approach for GFR Estimation: Recommendations of the NKF-ASN Task Force on Reassessing the Inclusion of Race in Diagnosing Kidney Disease. [place] Journal of Kidney Diseases 2021;79(2):268-88.e1. 2. N Engl J Med 2020 Vol. 385 Issue 19 Pages [phone] Performed By: #### C H8 #### [facility] [address] [place], [address] Glucose [Mass/Vol] 90 mg/dL Normal 68-110 The [facility] Comment on above: Performed By: #### C H8 #### [facility] [address] [place], [address] Potassium [Moles/Vol] 4.4 mmol/L Normal 3.3-5.3 The [facility] Comment on above: Result Comment: Hemo lysis present Performed By: #### C H8 #### [facility] [address] [place], [address] Sodium [Moles/Vol] 139 mmol/L Normal 135-148 The [facility] Comment on above: Performed By: #### C H8 #### [facility] [address] [place], [address] Urea nitrogen [Mass/Vol] 21 mg/dL Normal 8-22 The [facility] Comment on above: Performed By: #### C H8 #### [facility] [address] [place], [address] Basic metabolic 2000 panelOr dered By: Elsa Sifuentes on 11-12-2022 Anion gap [Moles/Vol] 12 mmol/L 10 - 20 [facility] Calcium [Mass/Vol] 9.2 mg/dL 8.4 - 10. 4 mg/dL [facility] Chloride [Moles/Vol] 104 mmol/L 97 - 111 mmol/L [facility] CO2 [Moles/Vol] 27 mmol/L 21 - 30 mmol/L [facility] Creatinine [Mass/Vol] 0.92 mg/dL 0.50 - 1.10 mg/dL [facility] GFR/1.73 sq M.predicted MDRD (S/P/Bld) [Vol rate/Area] 77 mL/min/{1.73_m2} - PINF [facility] Comment on above: 2020 CKD EPI Equatio n using Creatinine without Race Comment: Estimated glomerular filtration rate (eGFR) is calculated without a race coefficient. Values should be interpreted in the context of the patient's full clinical presentation. Reference: 1. Josias C, Kraig M, Shandra DC, et al.. A Unifying Approach for GFR Estimation: Recommendations of the NKF-ASN Task Force on Reassessing the Inclusion of Race in Diagnosing Kidney Disease. [place] Journal of Kidney Diseases 202;79(2):268-88.e1. 2. N Engl J Med 2020 Vol. 385 Issue 19 Pages 3690-6156 Glucose [Mass/Vol] 90 mg/dL 68 - 110 mg/dL [facility] Interpretation and review of laboratory results Normal [facility] Potassium [Moles/Vol] 4.4 mmol/L 3.3 - 5.3 mmol/L [facility] Comment on above: Hemolysis present Sodium [Moles/Vol] 139 mmol/L 135 - 148 mmol/L [facility] Urea nitrogen [Mass/Vol] 21 mg/dL 8 - 22 mg/dL [facility] CBC WITH DIFFERENTIALon 10-30 Basophils (Bld) [#/Vol] 0.10 10*3/uL Normal 0.00-0.20 The [facility] Comment on above: Performed By: #### D INC #### [facility] [address] [place], [address] Basophils/100 WBC (Bld) 1.2 % Normal <=1.9 The [facility] Comment on above: Performed By: #### D NIC #### [facility] [address] [place], [place], Eosinophils (Bld) [#/Vol] 0.10 10*3/uL Normal 0.00-0.70 [facility] Comment on above: Performed By: #### D NIC #### [facility] [address] [place], [place], Eosinophils/100 WBC (Bld) 1.1 % Normal 0.1-4.0 [facility] Comment on above: Performed By: #### D NIC #### [facility] [address] [place], [place], Erythrocyte distribution width (RBC) [Ratio] 12.9 % Normal 11.5-14.5 [facility] Comment on above: Performed By: #### D NIC #### [facility] [address] [place], [place], Hematocrit (Bld) [Volume fraction] 39.3 % Normal 36.0-46.0 [facility] [employer] [facility] Comment on above: Performed By: #### Brian NIC #### [facility] [address] [place], [place], Hemoglobin (Bld) [Mass/Vol] 13.1 g/dL Normal 12.0-15.0 [facility] Comment on above: Performed By: #### D NIC #### [facility] [address] [place], [place], Lymphocytes (Bld) [#/Vol] 2.40 10*3/uL Normal 1.00-4.80 [facility] Comment on above: Performed By: #### D NIC #### [facility] [address] [place], [place], Lymphocytes/100 WBC (Bld) 53.8 % High 24.0-44.0 [email or web address] Comment on above: Performed By: #### D NIC #### [facility] [address] [place], [place], MCH (RBC) [Entitic mass] 29.6 pg Normal 26.0-34.0 [facility] Comment on above: Performed By: #### Brian NIC #### S [facility] [address] [place] [address], MCHC (RBC) [Mass/Vol] 33.4 g/dL Normal 32.0-35.9 The [facility] Comment on above: Performed By: ###Michaelle Torres NIC #### [facility] [address] [place] [address], MCV (RBC) [Entitic vol] 89 fL Normal 80-100 The [facility] Comment on above: Performed By: ###Michaelle Torres NIC #### [facility] [address] [place] [address], MONOCYTE DISTRIBUTION WIDTH Normal The [facility] Comment on above: Performed By: ###Michaelle Torres NIC #### [facility] [address] [place] [address], Monocytes (Bld) [#/Vol] 0.70 10*3/uL Normal 0.20-1.00 The [facility] Comment on above: Performed By: ###Michaelle Torres NIC #### [facility] [address] [place] [address], Monocytes/100 WBC (Bld) 16.5 % High 2.0-11.0 The [facility] [place] Comment on above: Performed By: ###Michaelle Torres NIC #### [facility] [address] [place] [address], Neutrophils (Bld) [#/Vol] 1.20 10*3/uL Low 1.50-8.00 The [facility] Comment on above: Performed By: ###Michaelle Torres NIC #### [facility] [address] [place] [address], Neutrophils/100 WBC (Bld) 27.4 % Low 31.0-76.0 The [facility] [place] [facility] Comment on above: Performed By: ###Michaelle Torres NIC #### [facility] [address] [place] [address], Nucleated RBC (Bld) [#/Vol] 0.1 10*3/uL Normal The [facility] Comment on above: Performed By: ###Michaelle Torres NIC #### [facility] [address] [place], [place], Nucleated RBC (Bld) [#/Vol] 0.01 10*3/uL Normal The [facility] Comment on above: Performed By: #### D NIC #### [facility] [address] [place], [place], Platelet mean volume (Bld) [Entitic vol] 9.1 fL Normal 7.5-11.2 The [facility] Comment on above: Performed By: #### Brian NIC #### [facility] [address] [place], [place], Platelets (Bld) [#/Vol] 254 10*3/uL Normal 150-400 The [facility] Comment on above: Performed By: #### Brian NIC #### [facility] [address] [place] [address], RBC (Bld) [#/Vol] 4.44 10*6/uL Normal 4.00-5.20 The [facility] Comment on above: Performed By: #### Brian NIC #### [facility] [address] [place], [place], WBC (Bld) [#/Vol] 4.5 10*3/uL Normal 4.5-11.5 The [facility] Comment on above: Performed By: #### Brian NIC #### [facility] [address] [place], [place], Basophils (Bld) [#/Vol] 0.10 10*3/uL 0.00 - 0.20 K/uL [facility] Basophils/100 WBC (Bld) 1.2 % NINF - 1.9 % [facility] Eosinophils (Bld) [#/Vol] 0.10 10*3/uL 0.00 - 0.70 K/uL [facility] Eosinophils/100 WBC (Bld) 1.1 % 0.1 - 4.0 % [facility] Erythrocyte distribution width (RBC) [Ratio] 12.9 % 11.5 - 14.5 % [facility] Hematocrit (Bld) [Volume fraction] 39.3 % 36.0 - 46.0 % [facility] Hemoglobin (Bld) [Mass/Vol] 13.1 g/dL 12.0 - 15.0 g/dL [facility] Interpretation and review of laboratory results Abnormal [facility] Lymphocytes (Bld) [#/Vol] 2.40 10*3/uL 1.00 - 4.80 K/uL [facility] Lymphocytes/100 WBC (Bld) 53.8 % High 24.0 - 44.0 % [facility] MCH (RBC) [Entitic mass] 29.6 pg 26.0 - 34.0 pg [facility] MCHC (RBC) [Mass/Vol] 33.4 g/dL 32.0 - 35.9 g/dL [facility] MCV (RBC) [Entitic vol] 89 fL 80 - 100 fL [facility] Monocyte distribution width Auto (Bld) [Entitic vol] [facility] Monocytes (Bld) [#/Vol] 0.70 10*3/uL 0.20 - 1.00 K/uL [facility] Monocytes/100 WBC (Bld) 16.5 % High 2.0 - 11.0 % [facility] Neutrophils (Bld) [#/Vol] 1.20 10*3/uL Low 1.50 - 8.00 K/uL [facility] Neutrophils/100 WBC (Bld) 27.4 % Low 31.0 - 76.0 % [facility] Nucleated RBC (Bld) [#/Vol] 0.01 10*3/uL [facility] Nucleated RBC/100 WBC (Bld) [Ratio] 0.1 % [facility] Platelet mean volume (Bld) [Entitic vol] 9.1 fL 7.5 - 11.2 fL [facility] Platelets (Bld) [#/Vol] 254 10*3/uL 150 - 400 K/uL [facility] RBC (Bld) [#/Vol] 4.44 10*6/uL [facility] WBC (Bld) [#/Vol] 4.5 10*3/uL 4.5 - 11.5 K/uL [facility] ED Provider Adelita 11-12-20 Digital Solution Architect Authentication Interface Message Text Emergency Department Attending Note --------- HISTORY OF PRESENT ILLNESS ----- No chief complaint on file. not needed - patient preferred language is Belarusian. HIPAA:Verbal permission granted from patient to discuss case, including protected health information, in front of family / friends in room at the time of the ED evaluation. KN95 has been worn for the entirety of this patient encounter. The history is provided by the Patient. Heather Johns is a 47 year old year old female recently diagnosed with influenza today documented history of GERD, IBS, thyroid disease, psoriasis on immunosuppressants, presenting to the ED today with complaints of myalgias throughout her entire body. Additionally patient tells me that she is having some chest pain. Patient notes that she was at an urgent care today because for the last 3 days she has been feeling sick. She notes that they found her to be positive for influenza today. She tells me they sent her to the emergency department because she was complaining of chest tightness. She describes this pain as a tightness in her chest and tells me that she does have some tenderness to touch in her anterior chest. Patient currently denies headache dizziness, shortness of breath difficulty breathing, abdominal pain, vomiting, diarrhea constipation, black or bloody stools. REVIEW OF SYSTEMS Review of Systems Constitutional: Positive for fever, chills and malaise/fatigue. HENT: Positive for congestion. Negative for ear pain, sore throat and neck pain. Eyes: Negative for pain and discharge. Respiratory: Positive for cough. Negative for shortness of breath and wheezing. Cardiovascular: Positive for chest pain. Negative for palpitations and leg swelling. Gastrointestinal: Positive for nausea. Negative for vomiting, abdominal pain, diarrhea, constipation and blood in stool. Genitourinary: Negative for dysuria, urgency and frequency. Musculoskeletal: Positive for myalgias. Negative for back pain. Neurological: Positive for headaches. Negative for dizziness and weakness. Psychiatric/Behaviora l: Negative for suicidal ideas and hallucinations. The patient is not nervous/anxious. PAST HISTORY Pertinent Past History: Past Medical History: Diagnosis Date Anxiety Asthma Depression GERD (gastroesophageal reflux disease) HLD (hyperlipidemia) Hyperthyroidism Manic behavior (HCC) GARY (obstructive sleep apnea) PONV (postoperative nausea and vomiting) Patient Active Problem List: Chest pain [R07.9] Depression [F32.A] Indigestion [K30] Gastroesophageal reflux disease [K21.9] Fatty liver [K76.0] History of thyroid disease [Z86.39] Irritable bowel syndrome with constipation [K58.1] Psoriasis [L40.9] GARY (obstructive sleep apnea) [G47.33] Inadequate sleep hygiene [Z72.821] Nose abnormality [Q30.9] Adenoid hypertrophy [J35.2] Hypertrophy of nasal turbinates [J34.3] Deviated nasal septum [J34.2] Lumbosacral radiculopathy [M54.17] Chronic pain syndrome [G89.4] Cervical radicular pain [M54.12] Lumbar radicular pain [M54.16] Therapy [Z51.89] Cervical radiculopathy at C5 [M54.12] Myelopathy (HCC) [G95.9] Herniated lumbar intervertebral disc [M51.26] Lumbar spondylosis [M47.816] Lumbar radiculopathy [M54.16] Herniated disc, cervical [M50.20] Pertinent Family History: No family history on file. Pertinent Social History: Social History Occupational History Not on file Tobacco Use Smoking status: Every Day Packs/day: 0.25 Years: 34.00 Pack years: 8.50 Types: Cigarettes Smokeless tobacco: Never Substance and Sexual Activity Alcohol use: Yes Comment: socially Drug use: No Sexual activity: Yes Partners: Male PHYSICAL EXAM - BP 106/68 Pulse (!) 113 Temp 98.2 ???F (36.8 ???C) (Oral) Resp 18 SpO2 97% Physical Exam Vitals and nursing note reviewed. Constitutional: General: She is not in acute distress. Appearance: Normal appearance. She is not diaphoretic. HENT: Head: Normocephalic and atraumatic. Nose: Nose normal. Mouth/Throat: Mouth: Mucous membranes are moist. Eyes: Extraocular Movements: Extraocular movements intact. Pupils: Pupils are equal, round, and reactive to light. Cardiovascular: Rate and Rhythm: Tachycardia present. Comments: No murmurs rubs or gallops Pulmonary: Effort: Pulmonary effort is normal. No respiratory distress. Comments: Patient with no increased respiratory effort, satting appropriately on room air, no rales wheezing or rhonchi Abdominal: Comments: Abdomen is soft, nondistended, nontender, no rebound or guarding, bowel sounds equal present throughout. Musculoskeletal: Ge (more content not included)... Normal [facility] HIGH SENSITIVITY TROPONIN Io n 11-12-2022 HS TROPONIN I < 4 Normal <=15 [facility] Comment on above: Order Comment: A D-D nic result of <230 ng/mL DDU has a high negative predictive value for DVT and PE when combined with a clinical assessment of low to moderate probability. This cut-off value is specific for HemosIL D-dimer assay and values obtained using different methods may not be used interchangeably. Performed By: #### D NIC #### [facility] [address] [place], [address] Troponin I.cardiac DL <= 0.01 ng/mL [Mass/Vol] ng/L NINF - 15 ng/L [facility] Noteson 11-12-2022 Digital Solution Architect Authentication Interface Message Text Documentation: Mode: Video Consent: This visit was initiated by the patient. Audio and visual communication was utilized in real-time. I confirmed understanding of risks and benefits of telehealth visits and obtained consent to proceed with the telemedicine visit. Location of Patient: Home of patient Time-Based Billing Justifications: Charting in [facility] Patient visit (including performing a medically appropriate exam) Obtaining history (or reviewing separately obtained history) Reviewing (chart, labs, and other clinical notes) Counseling/educating the patient/family/caregi [place] Ordering/interpreting (medications, tests, procedures) [facility] D[facility] Follow-up visit CC: Psoriasis HPI: Patient is 47 year old female who presents for above. Most recent visit in Dermatology was on 11/12/2022 with Regina Bright MD. Pt notes that she was sick with COVID - she first tested positive on 09/23/22. She tested negative on 09/30/22. She started COVID medication (paxlovid?) on 09/24-09/28. Pt notes she then resumed Humira on 10/17/22 and then had another shot 10/31. She then stopped taking it again due to a pharmacists advice as she has been sick all through september. Her psoriasis is starting to come back on her feet - feels like her hands and feet are starting to flare. She still has fever, vomiting, coughing, leg pain. Notes that she watched her grandkids and caught another fever. She also notes headaches. ROS: Skin: (-) irritation (-) pruritus (-) bleeding (-) ulceration (-) photosensitivity PMH: Past Medical History: Diagnosis Date Anxiety Asthma Depression GERD (gastroesophageal reflux disease) HLD (hyperlipidemia) Hyperthyroidism Manic behavior (HCC) GARY (obstructive sleep apnea) PONV (postoperative nausea and vomiting) Current medications: Current Outpatient Medications Medication Sig Dispense Refill Adalimumab (Humira Pen) 40 MG/0.4ML PNKT Inject 40 mg under the skin every 14 days. 2 Each 3 naloxone 4 MG/0.1ML LIQD nasal liquid Instill 0.1 mL into one nostril (alternate sides) as needed for Other (Drug overdose, give and call 911) for up to 1 dose Indications: Opioid Overdose. 1 Each 1 eucerin (DERMACERIN) cream Apply topically as needed. Apply thin layer to affected area. 1 Tube 1 triamcinolone 0.1 % cream Apply topically 2 times daily. Apply thin layer to affected area. 30 g 0 omeprazole (PRILOSEC) 40 MG capsule Take 1 Capsule by mouth daily. 60 Capsule 3 sodium chloride (OCEAN NASAL SPRAY) 0.65 % nasal spray Instill 4 Sprays into each nostril 4 times daily. 2 Bottle 3 amitriptyline (ELAVIL) 25 MG tablet Take 1 Tablet by mouth at bedtime. 30 Tablet 0 Linaclotide 145 MCG CAPS capsule Take 1 Capsule by mouth daily. 30 Capsule 3 calcipotriene (DOVONOX) 0.005 % ointment Apply topically 2 times daily. Apply thin layer to affected area. 60 g 3 clobetasol (TEMOVATE) 0.05 % cream Apply topically 2 times daily. For rash on hands and feet 60 g 1 albuterol (PROVENTIL HFA) inhaler 90 mcg/inh Inhale 2 Puffs. fluticasone (FLOVENT HFA) 110 MCG/ACT inhaler Inhale 2 Puffs. atorvastatin (LIPITOR) 20 MG tablet Take 20 mg by mouth daily. sertraline (ZOLOFT) 25 MG tablet Take 150 mg by mouth daily. lamotrigine (LAMICTAL) 100 MG tablet Take 100 mg by mouth daily. No current facility-administered medications for this visit. Allergies: Morphine, Naproxen, Penicillins, Toradol [ketorolac tromethamine], and Tramadol FMH: No family history on file. Social history: Social History Socioeconomic History Marital status: Highest education level: 11th grade Tobacco Use Smoking status: Every Day Packs/day: 0.25 Years: 34.00 Pack years: 8.50 Types: Cigarettes Smokeless tobacco: Never Substance and Sexual Activity Alcohol use: Yes Comment: socially Drug use: No Sexual activity: Yes Partners: Male Social Determinants of Health Financial Resource Strain: Medium Risk Difficulty of Paying Living Expenses: Somewhat hard Food Insecurity: No Food Insecurity Worried About Running Out of Food in the Last Year: Never true Ran Out of Food in the Last Year: Never true Transportation Needs: No Transportation Needs Lack of Transportation (Medical): No Lack of Transportation (Non-Medical): No Physical Activity: Insufficiently Active Days of Exercise per Week: 1 day Minutes of Exercise per Session: 30 min Stress: Stress Concern Present Feeling of Stress : To some extent Social Connections: Moderately Isolated Frequency of Communication with Friends and Family: More than three times a week Frequency of Social Gatherings with Friends and Family: More than three times a week Attends Sikh Services: Never Active Member of Clubs or Organizations: No Attends Club or Organization Meetings: Never Marital Status: Intimate Partner Violence: Not At Risk Fear of Current or Ex-Partner: No Emotionally Abused: No Physical (more content not included)... Normal [facility] Troponin I.cardiac DL <= 0.0 1 ng/mL [Mass/Vol]on 11-12-2022 Interpretation and review of laboratory results Normal [facility] [place] [employer] High Sensitivity Cardiac Troponin I (hsTnI) assay has replaced the conventional troponin assay at [facility]. All results are reported in whole numbers representing ng/L. Repeat test times for ruling out acute coronary syndrome (ACS) are every 2 hours instead of every 6-8 hours. [id number] conventional troponin (I-stat) will remain available in the [facility] results obtained by different labs or methods are not comparable. Elevated troponin can result from acute myocardial infarction (coronary etiology) or myocardial injury (non-coronary etiology) always consider both. For ruling out acute coronary syndrome (ACS), lab values are always used in conjunction with clinical risk assessment (e.g., HEART score). Interpreting initial value in ruling out ACS Less than 5 ng/L below lower limit of quantification essentially rules out ACS if chest pain began more than 3 hours prior to test and assessed risk is low 5 - 49 ng/L indeterminate consider repeat value in 2 hours depending on risk assessment 50 ng/L or greater concern for ACS or myocardial injury Interpreting repeated values in ruling out ACS. Always compare to initial value obtained: Increase of less than 5 ng/L essentially rules out ACS if chest pain began more than 3 hours prior to initial test and assessed risk is low Increase of 5 - 19 ng/L indeterminate consider another repeat value in 2 hours depending on risk assessment Increase of 20 ng/L or greater Concern for ACS or myocardial injury Any absolute value of 50 ng/L or greater concern for ACS or myocardial injury Intermediate hsTnI values DO NOT mandate admission to a cardiology or telemetry unit. They need to be interpreted within the clinical context using provider judgement. When using hsTnI to calculate the HEART score, use the 99 % Upper Reference Limit of 15 ng/L as the normal limit (i.e. <=15 ng/L = 0 points, 16-45 ng/L = 1 points, >45 ng/L = 2 points). [facility] URINALYSISon 11-12-2022 Glucose Ql (U) Negative Normal Negative [facility] Comment on above: Performed By: #### 1 [id number], urinalysis ####[facility] [address] [place], [address] Protein (U) [Mass/Vol] 30 mg/dL Abnormal Negative [facility] Comment on above: Performed By: #### 1 [id number], urinalysis ####[facility] [address] [place], [address] U APPEAR Clear Normal Clear [facility] Comment on above: Performed By: #### 1 [id number], urinalysis ####[facility] [id number] [place] [address], [address] U BILI Negative Normal Negative [facility] Comment on above: Performed By: #### 1 [id number], urinalysis ####[facility] [id number] [place] [address], [address] U BLOOD Moderate Abnormal Negative [facility] Comment on above: Performed By: #### 1 [id number], urinalysis ####[facility] [address] [place], [address] U COLOR Yellow Normal Yellow [facility] Comment on above: Performed By: #### 1 [id number], urinalysis ####[facility] [id number] [place] [address], [address] U KETONE Trace Abnormal Negative [facility] Comment on above: Performed By: #### 1 [id number], urinalysis ####[facility] [address] [place], [address] U LEUK Negative Normal Negative [facility] Comment on above: Performed By: #### 1 [id number], urinalysis ####[facility] [id number] [place] [address], [address] U NITRITE Negative Normal Negative [facility] Comment on above: Performed By: #### 1 [id number], urinalysis ####[facility] [id number] [place] [address], [address] U PH 5.5 Normal 5.0-8.0 [facility] Comment on above: Performed By: #### 1 [id number], urinalysis ####[facility] [address] [place], [address] U SG >= 1.030 Normal 1.005-1.030 [facility] Comment on above: Performed By: #### 1 [id number], urinalysis ####[facility] [address] [place], [address] U UROBILI 0.2 mg/dL Normal 0.2 - 1.0 [facility] Comment on above: Performed By: #### 1 [id number], urinalysis ####[facility] [address] [place], [address] Appearance (U) Clear Clear [facility] Bilirubin Ql (U) Negative Negative [facility] Color (U) Yellow Yellow [facility] Glucose Auto test strip (U) [Mass/Vol] Negative Negative mg/dL [facility] Hemoglobin Ql (U) Moderate Abnormal Negative [facility] Interpretation and review of laboratory results Abnormal [facility] Ketones Ql (U) Trace Abnormal Negative mg/dL [facility] Leukocyte esterase Test strip Ql (U) Negative Negative Yossi/uL [facility] Nitrite Ql (U) Negative Negative [facility] pH (U) 5.5 [pH] 5.0 - 8.0 [facility] Protein (U) [Mass/Vol] 30 mg/dL Abnormal Negative [facility] Specific gravity (U) [Rel density] 1.005 - 1.030 [facility] Urobilinogen Qn (U) 0.2 mg/dL 0.2 - 1. 0 mg/dL [facility] URINALYSIS - MICRO (SATELLIT E)on 11-12-2022 AMORPHOUS URATES Moderate Normal [facility] Comment on above: Performed By: #### 1 [id number], urinalysis ####[facility] [address] [place], [address] SQUAMOUS EPITHELIAL 6-10 Normal 0-10 [facility] Comment on above: Performed By: #### 1 [id number], urinalysis ####[facility] [address] [place], [address] U BACTERIA Many Normal [facility] Comment on above: Performed By: #### 1 [id number], urinalysis ####[facility] [address] [place], [address] U MUCOUS Present Normal [facility] Comment on above: Performed By: #### 1 [id number], urinalysis ####[facility] [address] [place], [address] U RBC 3-5 Abnormal 0-2 [facility] Comment on above: Performed By: #### 1 [id number], urinalysis ####[facility] [address] [place], [address] U WBC None Seen Normal 0-2 [facility] Comment on above: Performed By: #### 1 [id number], urinalysis ####[facility] [address] [place], [address] Bacteria LM.HPF (Urine sed) [#/Area] Many /HPF [facility] Epithelial cells.squamous LM.HPF (Urine sed) [#/Area] 6[facility] Interpretation and review of laboratory results Abnormal [facility] Mucus Ql (Urine sed) Present [facility] Urate crystals amorphous LM.HPF (Urine sed) [#/Area] Moderate /HPF [facility] WBC (U) [#/Vol] 3-5 Abnormal [facility] WBC LM.HPF (Urine sed) [#/Area] None Seen [facility] XR CHEST 2 VIEW PA+LATon XR CHEST 2 VIEW PA+LAT EXAMINATION: XR CHEST 2 VIEW PA+LAT 11/12/2022 07:59 PM CLINICAL HISTORY: Reason for Exam: Chest Pain COMPARISON: Chest radiograph 12/08/2017 FINDINGS: Cardiomediastinal silhouette: Normal. Lungs/Pleura: No focal pulmonary consolidation, effusion or pneumothorax. Musculoskeletal: Unremarkable. IMPRESSION: No acute cardiopulmonary abnormality identified. MACRO: None Normal [facility] XR Chest PA and Lateralon EXAMINATION: XR CHES T 2 VIEW PA+LAT 11/12/2022 07:59 PM CLINICAL HISTORY: Reason for Exam: Chest Pain COMPARISON: Chest radiograph 12/08/2017 FINDINGS: Cardiomediastinal silhouette: Normal. Lungs/Pleura: No focal pulmonary consolidation, effusion or pneumothorax. Musculoskeletal: Unremarkable. IMPRESSION: No acute cardiopulmonary abnormality identified. MACRO: None RADIOLOGY Carl Hough MD - 11/12/2022 EXAMINATION: XR CHEST 2 VIEW PA+LAT 11/12/2022 07:59 PM CLINICAL HISTORY: Reason for Exam: Chest Pain COMPARISON: Chest radiograph 12/08/2017 FINDINGS: Cardiomediastinal silhouette: Normal. Lungs/Pleura: No focal pulmonary consolidation, effusion or pneumothorax. Musculoskeletal: Unremarkable. IMPRESSION: No acute cardiopulmonary abnormality identified. MACRO: None [facility] Radiology Study observation (narrative) [facility] XR Chest PA and LateralOrder ed By: Carl Hough on 11-12-2022 [facility] Work Phone: ED NOTEon 03-07-2022 ED NOTE HNO ID: [id number] Author: Thania Luna RN Service: ? Author Type: Registered Nurse Type: ED Notes Filed: 03/07/2022 4:49 PM Note Text: Pt received written and verbal discharge instructions. Instructed pt to follow up with PCP or follow-up DR. Instructed to come back to Emergency Room if symptoms worsen. Pt verbalized understanding. [facility] ED NOTE HNO ID: [id number] Author: Yaritza Quarles RN Service: ? Author Type: Registered Nurse Type: ED Notes Filed: 03/07/2022 4:18 PM Note Text: Patient presents to the ED with c/o bilateral leg pain x2 weeks. Patient denies injury/trauma. Patient denies history of blood clots. [facility] ED PROV NOTEon 03-07-2022 ED PROV NOTE HNO ID: [id number] Author: Jose Osawld PA-C Service: ? Author Type: Physician Cafeteria Manager Type: ED Provider Notes Filed: 03/07/2022 4:39 PM Note Text: ED Provider Note Patient Name: Heather Johns : 1975 SERVICE DATE: 03/07/22 History Patient presents with: Leg Pain: bilateral 46-year-old female with history of anxiety, arthritis presents to the emergency department with complaints of bilateral leg pain is been present for weeks. She denies any injury or fall. Denies any history of DVT, recent surgery, prolonged immobilization, malignancy. Denies any lower extremity swelling. She tells me that the pain in her right leg goes from her hip down to her ankle and the pain in her left leg goes from her knee down to her ankle. She denies any back pain, extremity weakness, numbness, tingling, saddle anesthesia, urinary or bowel retention/incontinenc e. No fever chills or recent illness. No rashes. Has been taking Tylenol which is helped mildly with her symptoms. No other issues or complaints. History provided by: Patient spanish medical interpreter used: No PAST MEDICAL HISTORY Diagnosis Date - Anxiety - Arthritis - Bronchitis - Psychiatric disorder PAST SURGICAL HISTORY Procedure Laterality Date - EYE SURGERY HX - HYSTERECTOMY HX - ORTHOPEDICS SURGERY HX - PAST SURGICAL HISTORY OF Right 2007 bunion - PAST SURGICAL HISTORY OF Right 2007 broke foot had pins FAMILY HISTORY Problem Relation Age of Onset - Diabetes Mother - Hypertension Mother - Hypertension Father Social History Tobacco Use - Smoking status: Current Every Day Smoker Packs/day: 0.50 Types: Cigarettes - Smokeless tobacco: Never Used Substance and Sexual Activity - Alcohol use: No - Drug use: Yes Types: Marijuana - Sexual activity: Not Currently ALLERGIES Allergen Reactions - Ketorolac Trometham* Vomiting - Morphine Intolerance - Naproxen GI Upset - Penicillins Rash - Tramadol GI Upset Review of Systems Constitutional: Negative for activity change, chills and fever. Respiratory: Negative for shortness of breath. Cardiovascular: Negative for chest pain, palpitations and leg swelling. Gastrointestinal: Negative for abdominal pain, nausea and vomiting. Musculoskeletal: Negative for back pain, gait problem, joint swelling and neck pain. Skin: Negative for color change and rash. Neurological: Negative for weakness and numbness. All other systems reviewed and are negative. Physical Exam Vitals [03/07/22 1615] BP Pulse Temp Temp src Resp SpO2 Weight Height 140/99 (!) 105 36.6 ?C (97.9 ?F) Oral 20 96 % 76.2 kg (168 lb) -- Physical Exam Vitals and nursing note reviewed. Constitutional: General: She is awake. She is not in acute distress. Appearance: Normal appearance. She is well-developed, well-groomed and normal weight. She is not ill-appearing or toxic-appearing. HENT: Head: Normocephalic and atraumatic. Eyes: Extraocular Movements: Extraocular movements intact. Cardiovascular: Rate and Rhythm: Normal rate and regular rhythm. Pulses: Normal pulses. Dorsalis pedis pulses are 2+ on the right side and 2+ on the left side. Posterior tibial pulses are 2+ on the right side and 2+ on the left side. Heart sounds: Normal heart sounds. No murmur heard. No friction rub. No gallop. Comments: 2+ dorsalis pedis and posterior tibialis pulses bilaterally. There is no lower extremity edema. No calf popliteal pain or tenderness. Pulmonary: Effort: Pulmonary effort is normal. No respiratory distress. Breath sounds: Normal breath sounds. No stridor. No wheezing, rhonchi or rales. Abdominal: General: Abdomen is flat. Bowel sounds are normal. Palpations: Abdomen is soft. Tenderness: There is no abdominal tenderness. Musculoskeletal: General: No swelling. Cervical back: Normal and normal range of motion. Thoracic back: Normal. Lumbar back: Normal. Right hip: Normal. Left hip: Normal. Right knee: Normal. Left knee: Normal. Right lower leg: No edema. Left lower leg: No edema. Right ankle: Normal. Left ankle: Normal. Comments: 2+ distal pulses bilaterally in the lower extremities. There is no erythema, edema, warmth, tenderness, or limitation of range of motion of any joint of the lower extremities bilaterally. Skin: General: Skin is warm and dry. Neurological: General: No focal deficit present. Mental Status: She is alert, oriented to person, place, and time and easily aroused. Sensory: Sensation is intact. No sensory deficit. Motor: Motor function is intact. No weakness. Gait: Gait is intact. Gait normal. Deep Tendon Reflexes: Reflex Scores: Patellar reflexes are 2+ on the right side and 2+ on the left side. Achilles reflexes are 2+ on the right side and 2+ on the left side. Comments: Patient ambulates with a normal, steady gait without difficulty. There is no weakness in the lower extremities jenni (more content not included)... Normal [facility] Vital Signs Date Time Vital Sign Value Performing Clinician Faci lity 08-13-2023 11:01-0400 Body mass index (BMI) [Ratio] 29.6 kg/m2 Mack Vega MD Work Phone: [facility] 08-13-2023 11:01-0400 Body temperature 96.69 [degF] Mack Vega MD Work Phone: [employer] 08-13-2023 11:01-0400 Body weight 80.69 kg Mcak Vega MD Work Phone: [employer] 08-13-2023 11:01-0400 Diastolic blood pressure 92 mm[Hg] Mack Vega MD Work Phone: [employer] 08-13-2023 11:01-0400 Heart rate 95 /min Mack Vega MD Work Phone: [employer] 08-13-2023 11:01-0400 SaO2% (BldA) [Mass fraction] 99 % [facility] 08-13-2023 11:01-0400 Systolic blood pressure 124 mm[Hg] Mack Vega MD Work Phone: [employer] 08-08-2023 16:11-0400 Diastolic blood pressure 89 mm[Hg] Nhi Abdul MD Work Phone: [employer] 08-08-2023 16:11-0400 Heart rate 68 /min Nhi Abdul MD Work Phone: [employer] 08-08-2023 16:11-0400 Respiratory rate 19 /min Nhi Abdul MD Work Phone: [employer] 08-08-2023 16:11-0400 Systolic blood pressure 139 mm[Hg] Nhi Abdul MD Work Phone: [employer] 08-08-2023 10:41-0400 Body temperature 98.01 [degF] Nhi Abdul MD Work Phone: [employer] 08-08-2023 10:41-0400 SaO2% (BldA) [Mass fraction] 97 % Nhi Abdul MD Work Phone: [employer] 12-05-2022 10:50-0500 Body mass index (BMI) [Ratio] 28.79 kg/m2 Mason Walls MD Work Phone: [employer] 12-05-2022 10:50-0500 Body temperature 97.7 [degF] Mason Walls MD Work Phone: [employer] 12-05-2022 10:50-0500 Body weight 78.47 kg Mason Walls MD Work Phone: [employer] 12-05-2022 10:50-0500 Diastolic blood pressure 74 mm[Hg] Mason Walls MD Work Phone: [employer] 12-05-2022 10:50-0500 Heart rate 98 /min Mason Walls MD Work Phone: [employer] 12-05-2022 10:50-0500 Systolic blood pressure 106 mm[Hg] Mason Walls MD Work Phone: [employer] 11-12-2022 17:49-0500 Body temperature 98.2 [degF] Antwan Woodruff MD Work Phone: [employer] 11-12-2022 17:49-0500 Diastolic blood pressure 68 mm[Hg] Antwan Woodruff MD Work Phone: [employer] 11-12-2022 17:49-0500 Heart rate 113 /min Antwan Woodruff MD Work Phone: [employer] 11-12-2022 17:49-0500 Respiratory rate 18 /min Antwan Woodruff MD Work Phone: [employer] 11-12-2022 17:49-0500 SaO2% (BldA) [Mass fraction] 97 % Antwan Woodruff MD Work Phone: [employer] 11-12-2022 17:49-0500 Systolic blood pressure 106 mm[Hg] Antwan Woodruff MD Work Phone: [employer] Encounters Encounter Date Encounter Type Care Provider Facility Start: 04-11-2024 End: 04-11-2024 ambulatory [facility] Start: 02-17-2024 End: 02-18-2024 ambulatory Azul Evans Facility:[facility] Start: 02-17-2024 End: 02-17-2024 Patient encounter procedure Azul Evans [facility] Start: 02-08-2024 End: 02-08-2024 Emergency department patient visit Richard Coon Facility:[facility] Start: 10-19-2023 End: 10-20-2023 ambulatory [facility] Facility:[facility] Start: 10-19-2023 End: 10-19-2023 Subsequent hospital visit by physician Op Ultrasound 3 [facility] Radiology Comment on above: Colicky RUQ abdomina l pain Start: 08-13-2023 End: 08-13-2023 ambulatory [facility] Facility:[facility] Start: 08-13-2023 End: 08-13-2023 Office outpatient visit 25 minutes Mack Vega MD Work Phone: [facility] Gastroenterology Comment on above: Left upper quadrant abdominal pain (Primary Dx); Gastroesophageal reflux disease without esophagitis; Hiatal hernia; Body mass index (BMI) 29.0-29.9, adult Start: 08-08-2023 End: 08-08-2023 Emergency department patient visit PAULINA JONES Facility:[facility] Start: 08-08-2023 End: 08-08-2023 Emergency department patient visit Nhi Abdul MD Work Phone: [facility] Emergency Medicine Comment on above: Abdominal pain (Epig astric pain x1.5 weeks. Pt states she thinks she has a hernia.) Start: 08-07-2023 ambulatory Joseph Stalcup [facility] Start: 07-22-2023 ambulatory Joseph Stalcup [facility] Start: 07-22-2023 Patient encounter procedure Joseph Stalcup [facility] Comment on above: Specialty Pharmacy R eferral (VTAMA) Start: 07-21-2023 End: 07-21-2023 ambulatory [facility] Facility:[facility] Start: 07-21-2023 End: 07-21-2023 Office outpatient visit 25 minutes Shira Grady DO Work Phone: [facility] Dermatology Comment on above: Psoriasis (Primary D x); High risk medication use Start: 07-10-2023 ambulatory Regina newby MD Work Phone: [facility] Comment on above: Hi Start: 07-10-2023 E-mail encounter fro m caregiver Regina Bright MD Work Phone: [facility] Start: 04-10-2023 Specialty Pharmacy Ronit Zapata [facility] Comment on above: Specialty Pharmacy M edication Refill (Humira) Start: 04-08-2023 Refill Regina newby MD Work Phone: [facility] Derm[facility] Comment on above: Refill Start: 02-20-2023 Specialty Pharmacy Ronit Zapata [facility] Comment on above: Specialty Pharmacy M edication Refill (Humira) Start: 02-19-2023 ambulatory [facility] Start: 02-13-2023 End: 02-13-2023 Emergency department patient visit HITESH ROJAS Facility:[facility] Start: 01-20-2023 Specialty Pharmacy Ronit Zapata [facility] Comment on above: Specialty Pharmacy M edication Refill (Humira ) Start: 12-23-2022 Specialty Pharmacy Ronit Zapata [facility] Comment on above: Specialty Pharmacy M edication Refill (Humira) Start: 12-22-2022 ambulatory LEOPOLDODarby WOODS Facility:[facility] Start: 12-22-2022 End: 12-22-2022 Clinical Support Pathology Provider [facility] Comment on above: Arrived Start: 12-22-2022 End: 12-23-2022 ambulatory MARIUSZ JOSH Facility:[facility] Start: 12-22-2022 End: 12-22-2022 Subsequent hospital visit by physician Ip/Op Nuclear Prep [facility] Radiology Comment on above: Indigestion Start: 12-17-2022 Refill Regina newby MD Work Phone: [facility] Comment on above: Refill Start: 12-05-2022 ambulatory [facility] Facility:[facility] Start: 12-05-2022 Letter encounter Antwan Woodruff MD Work Phone: [facility] Start: 12-05-2022 End: 12-08-2022 ambulatory SELF PATIENT Facility:[facility] Start: 12-05-2022 End: 12-08-2022 Office outpatient new 45 minutes Mason Walls MD Work Phone: [facility] Gastroenterology Comment on above: Indigestion (Primary Dx); Body mass index (BMI) 28.0-28.9, adult Start: 12-04-2022 Letter encounter Antwan Woodruff MD Work Phone: [facility] Radiology CT Scan Start: 12-04-2022 End: 12-04-2022 ambulatory [facility] Facility:[facility] Start: 12-03-2022 Letter encounter Antwan Woodruff MD Work Phone: [facility] Start: 11-28-2022 Specialty Pharmacy Ronit Zapata [facility] Comment on above: Specialty Pharmacy M edication Refill (Humira) Start: 11-12-2022 End: 11-12-2022 Emergency department patient visit [facility] Facility:[facility] Start: 11-12-2022 End: 11-12-2022 Emergency department patient visit Antwan Woodruff MD Work Phone: [facility] Emergency Department Start: 11-12-2022 End: 11-12-2022 ambulatory IVY BLOUNTCUMBERLAND Facility:[facility] Start: 11-12-2022 End: 11-12-2022 Office outpatient visit 25 minutes Regina Bright MD Work Phone: [facility] Comment on above: Psoriasis (Primary D x) Start: 10-02-2022 Telephone encounter Regina barnes MD Work Phone: [facility] Comment on above: Dermatology Start: 08-13-2022 Refill Regina newby MD Work Phone: [facility] Dermatology Comment on above: Refill Start: 07-23-2022 End: 07-23-2022 Phys/qhp telephone evaluation 11-20 min Regina Bright MD Work Phone: [facility] Comment on above: Palmoplantar pustula r psoriasis (Primary Dx); High risk medication use Start: 06-24-2022 Telephone encounter Joseph Cruzshantell [facility] Comment on above: Specialty Pharmacy R eferral (HUMIRA) Specialty Pharmacy R eferral (HUMIRA - [place] APPROVED) Start: 05-26-2022 End: 05-26-2022 Office outpatient new 20 minutes Alie Harper MD Work Phone: [facility] Comment on above: Psoriasis, unspecifi ed (Primary Dx) Start: 06-25-2019 End: 06-25-2019 Patient encounter procedure [facility] Facility: Procedures Date Procedure Procedure Detail Performing Clinician Start: 10-19-2023 Us abdominal real ti me w/image limited Leopoldo Chuck ELECTRICAL TRANSMISSION ENGINEER-RECEPTIONIST DOCTOR'S OFFICE Work Phone: Start: 08-08-2023 Ct abdomen & pelvis w/contrast material Paulina Jones DO Work Phone: Start: 08-08-2023 Fibrin dgradj produc ts d-dimer qual/semiquan Nhi Abdul MD Work Phone: Start: 08-08-2023 Radiologic exam ches t 2 views Nhi Abdul MD Work Phone: Start: 08-08-2023 Assay of lipase Adan Martínez MD Work Phone: Start: 08-08-2023 Hepatic function panel Adan Martínez MD Work Phone: Start: 08-08-2023 Urnls dip stick/tabl et rgnt auto w/o microscopy Adan Martínez MD Work Phone: Start: 12-22-2022 Basic metabolic pane l calcium total Regina Bright MD Work Phone: Start: 12-22-2022 Tb antigen response gamma interferon t-cell susp Regina Bright MD Work Phone: Start: 12-22-2022 Gastric emptying harvinder ging study Mason Walls MD Work Phone: Start: 11-12-2022 Urinalysis Aman grijalva PA-C Work Phone: Start: 11-12-2022 End: 11-12-2022 Urnls dip stick/tablet rgnt auto w/o microscopy Aman Wright PA-C Work Phone: Start: 11-12-2022 Radiologic exam ches t 2 views Aman Wright PA-C Work Phone: Start: 11-12-2022 Basic metabolic pane l calcium total Aman Wright PA-C Work Phone: Start: 09-16-2016 Colonoscopy Alie sheehan MD Work Phone: Plan of Treatment Date Care Activity Detail Author Start: 2040 Pneumococcal vaccination [facility] Start: 05-16-2028 Cholesterol [Mass/volume] in Serum or Plasma Cholesterol [facility] Start: 09-16-2026 Screening for malignant neoplasm of colon [facility] Start: 01-10-2026 Tetanus vaccination Tetanus (Td or Tdap) Booster [facility] Start: 09-20-2025 Cholesterol [Mass/volume] in Serum or Plasma Cholesterol [facility] Start: 12-09-2023 COVID-19 Vaccine ( season) COVID-19 Vaccine () [facility] Start: 08-30-2023 Influenza vaccination Influenza Vaccine (#1) [facility] Start: 08-13-2023 End: 08-13-2023 Patient encounter procedure 08/13/2023 11:00 AM EDT Office Visit [facility] [address] [place] [id number] Mack Vega MD [address] [place] [id number] [facility] Start: 07-31-2023 Influenza vaccination Influenza Vaccine (#1) [facility] Start: 05-05-2023 Cholesterol [Mass/volume] in Serum or Plasma Cholesterol [facility] Start: 03-03-2023 COVID-19 Vaccine (5 - Moderna risk series) COVID-19 Vaccine (5 - Moderna risk series) [facility] Start: 01-29-2023 End: 01-29-2023 Patient encounter procedure 01/29/2023 Office Visit Gastroenterology Mason Walls MD [address] [place] [id number] [facility] Start: 12-22-2022 End: 12-22-2022 Patient encounter procedure 12/22/2022 Appointment Radiology [facility] Start: 12-22-2022 End: 12-22-2022 Patient encounter procedure 12/22/2022 Appointment Radiology [facility] Start: 12-22-2022 End: 12-22-2022 Patient encounter procedure 12/22/2022 Appointment Radiology [facility] Start: 12-05-2022 End: 12-05-2023 NM Stomach Views for gastric emptying W radionuclide PO NM GASTRIC EMPTYING STUDY Imaging Routine Indigestion Expected: 12/05/2022, Expires: 12/05/2023 [facility] Comment on above: Expected: 12/05/2022, Expires: Start: 12-04-2022 End: 12-04-2022 Professional / ancillary services management 12/04/2022 Ancillary Procedure Radiology [facility] Start: 10-03-2022 End: 04-01-2023 Tb cell mediated antign respnse gamma interferon TUBERCULOSIS- CELL MEDIATED I* Lab Routine Psoriasis, unspecified High risk medication use Expected: 10/03/2022, Expires: 04/01/[address] [facility] Work Phone: Comment on above: Expected: 10/03/2022, Expires: Start: 08-30-2022 Influenza vaccination Influenza Vaccine (#1) [facility] Start: 07-23-2022 End: 07-23-2022 Telemedicine consultation with patient 07/23/2022 Telemedicine Dermatology Regina Bright MD [address] [place] [address] [facility] Start: 11-27-2021 COVID-19 Vaccine (4 - Booster for Moderna series) COVID-19 Vaccine (4 - Booster for Moderna series) [facility] Start: 11-20-2021 COVID-19 Vaccine (4 - Booster for Moderna series) COVID-19 Vaccine (4 - Booster for Moderna series) [facility] Start: 10-23-2021 COVID-19 Vaccine (4 - Booster for Moderna series) COVID-19 Vaccine (4 - Booster for Moderna series) [facility] Start: 2020 Screening for malignant neoplasm of colon [facility] Start: 2015 Screening for malignant neoplasm of breast Mammography [facility] Start: 11-30-2012 Annual wellness visit Annual Wellness Visit (G0438) [facility] Start: 1996 Screening for malignant neoplasm of cervix Pap Smear [facility] Start: 1994 Shingles (RZV) Vaccine (1 of 2) Shingles (RZV) Vaccine (1 of 2) [facility] Start: 1975 COVID-19 Vaccine ( formulation) COVID-19 Vaccine ( formulation) [facility] Assay of thyroid stimulating hormone tsh TSH Lab Routine Indigestion Ordered: 12/05/2022 [facility] Comment on above: Ordered: 12/05/2022 End: 07-23-2023 Basic metabolic 2000 panel - Serum or Plasma BASIC METABOLIC PANEL 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 1 Occurrences starting 07/23/2022 until 07/23/2023 [facility] Comment on above: 1 Occurrences starting 07/23/2022 until 07/23/2023 CBC W Auto Differential panel - Blood COMPLETE BLOOD COUNT W/DIFF 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 Ordered: 07/23/2022 [employer] Comment on above: Ordered: 07/23/2022 Diabetes tracking panel HEMOGLOBIN A1C Lab Routine Indigestion Ordered: 12/05/2022 [facility] Work Phone: Comment on above: Ordered: 12/05/2022 Hepatic function panel HEPATIC FUNCTION PANEL 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 Ordered: 07/23/2022 [employer] Comment on above: Ordered: 07/23/2022 End: 11-12-2022 Introduction needle/intracatheter vein IV INSERTION Procedures Routine One time for 1 Occurrences starting 11/12/2022 until 11/12/2022 [facility] [employer] [facility] Work Phone: Comment on above: One time for 1 Occurrences starting 10/30 until 11/12/2022 Tb cell mediated antign respnse gamma interferon TUBERCULOSIS- CELL MEDIATED I* 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 Ordered: 07/23/2022 [facility] [employer] [facility] Work Phone: Comment on above: Ordered: 07/23/2022 End: 08-08-2023 Urnls dip stick/tablet rgnt auto w/o microscopy URINALYSIS,AUTO-IN OFFICE Lab STAT One time for 1 Occurrences starting 08/08/2023 until 08/08/2023 [facility] [employer] [facility] Work Phone: Comment on above: One time for 1 Occurrences starting 07/2023 until 08/08/2023 Immunizations Immunization Date Immunization Notes Care Provider [facility] 10-14-2023 Influenza, injectabl e, Madin Dunnigan Canine Kidney, preservative free, quadrivalent 3 [facility] 09-12-2022 Influenza, injectabl e, Madin Dunnigan Canine Kidney, preservative free, quadrivalent Regina Bright MD Work Phone: [facility] [place] [employer] 09-12-2022 influenza virus vaccine, unspecified formulation Joseph Alfredo [facility] 11-06-2021 influenza, injectabl e, quadrivalent, preservative free Alie Harper MD Work Phone: [facility] 11-06-2021 pneumococcal polysaccharide vaccine, 23 valent Alie Harper MD Work Phone: [facility] 11-06-2021 influenza virus vaccine, unspecified formulation Joseph Alfredo [facility] 08-28-2021 Moderna Monovalent ( 12+ yrs) COVID-19 vaccine, mRNA, spike protein, LNP, PF, 100 mcg/0.5 mL (DXO=564) Regina Bright MD Work Phone: [facility] 03-27-2021 Moderna SARS-COV-2 (COVID-19) vaccine, mRNA, spike protein, LNP, preservative free, 100 mcg/0.5 mL (primary) or 50 mcg/0.25 mL (booster) (NAK=[id number]) Alie Harper MD Work Phone: [facility] 02-27-2021 Moderna SARS-COV-2 (COVID-19) vaccine, mRNA, spike protein, LNP, preservative free, 100 mcg/0.5 mL (primary) or 50 mcg/0.25 mL (booster) (AOW=996) Alie Harper MD Work Phone: [facility] 08-31-2020 influenza, injectabl e, quadrivalent, preservative free Alie Harper MD Work Phone: [facility] 09-21-2019 influenza, injectabl e, quadrivalent, preservative free Alie Harper MD Work Phone: [facility] 09-21-2019 pneumococcal conjuga te vaccine, 13 valent Alie Harper MD Work Phone: [facility] 08-16-2018 influenza, injectabl e, quadrivalent, preservative free Alie Harper MD Work Phone: [facility] 12-23-2017 influenza, injectabl e, quadrivalent, preservative free Alie Harper MD Work Phone: [facility] 08-18-2016 influenza, injectabl e, quadrivalent, preservative free Alie Harper MD Work Phone: [facility] 01-10-2016 pneumococcal polysaccharide vaccine, 23 valent Alie Harper MD Work Phone: [facility] Work Phone: 01-10-2016 tetanus toxoid, redu annalise diphtheria toxoid, and acellular pertussis vaccine, adsorbed Alie Harper MD Work Phone: [facility] Payers Date Payer Category Payer Self-pay 2023 Unknown [id number] 2022 Unknown [id number] 2022 Unknown [id number] 2020 Medicaid [id number] 2020 Medicare [id number] 2019 Medicare [id number] 2017 Medicaid [id number] 2011 Medicare [id number] 1975 Unknown [id number] 2.16.84 [id number] 1975 Unknown [id number] 2.16. 840.1.442903.3.579.2.732 1975 Unknown [id number] 2.16. 840.1.006402.3.579.2.73 1975 Unknown [id number] 2.16. 840.1.125077.3.579.2.732 1975 Unknown [id number] 2.16. 840.1.984034.3.579.2. 1975 Unknown [id number] 2.16. 840.1.573484.3.579.2.732 1975 Unknown [id number] 2.16. 840.1.700954.3.579.2.732 1975 Unknown [id number] 2.16. 840.1.212270.3.579.2.2 1975 Unknown [id number] 2.16. 840.1.894660.3.579.2. 1975 Unknown [id number] 2.16. 840.1.103589.3.579.2. 1975 Unknown [id number] 2.16. 840.1.542873.3.579.2. 1975 Unknown [id number] 2.16. 840.1.226080.3.579.2. 1975 Unknown [id number] 2.16. 840.1.679677.3.579.2. 1975 Unknown [id number] 2.16. 840.1.691114.3.579.2. 1975 Unknown [id number] 2.16. 840.1.512689.3.579.2. 1975 Unknown [id number] 2.16. 840.1.878984.3.579.2. 1975 Unknown [id number] 2.16. 840.1.309466.3.579.2. 1975 Unknown [id number] 2.16. 840.1.454639.3.579.2. 1975 Unknown [id number] 2.16. 840.1.949306.3.579.2. 1975 Unknown [id number] 2.16.8 40.1.068963.3.579.2.727 1975 Unknown [id number] 2.16.8 40.1.006471.3.579.2.1249 1959 Medicaid [id number] 1959 Medicare [id number] Unknown [id number] 2.16.8 40.1.881736.3.579.2.531 Unknown [id number] 2.16.8 40.1.761510.3.579.2.531 Social History Date Type Detail Facility Start: 12-18-2017 Tobacco smoking status NHIS [facility] Work Phone: [facility] of tobacco use [facility] Start: 12-18-2017 End: 12-05-2022 Cigarettes smoked current (pack per day) - Reported 0.25 [facility] Start: 12-18-2017 End: 12-05-2022 Tobacco use and exposure Smokeless tobacco non-user [facility] Start: 05-26-2022 End: 08-13-2023 Alcohol intake Current drinker of alcohol (finding) [facility] Start: 03-02-2018 History SDOH Alcohol Comment socially [facility] Start: 1975 Sex Assigned At Female [facility] Start: 09-23-2022 History SDOH Social Connections Phone 5 [facility] Start: 09-23-2022 History SDOH Social Connections [employer] 1 [facility] Start: 09-23-2022 History SDOH Social Connections Membership 2 [facility] Start: 09-23-2022 History SDOH Social Connections Living 3 [facility] Start: 09-22-2022 Education 11 [facility] Start: 11-02-2022 End: 02-13-2023 Exposure to SARS-CoV-2 (event) Not sure [facility] Start: 12-05-2022 Tobacco smoking status NHIS [facility] History of tobacco use Current smoker [facility] Start: 05-20-2021 Gender identity Identifies as female gender (finding) [facility] Start: 05-20-2021 Sexual orientation Heterosexual (finding) [facility] Tobacco smoking status No Smokin g Status Entered [facility] Sex Assigned At Female [facility] Clinical Notes 05-26-2022 to 08-13-2023 Bethany Johnson MD - 08/13/2023 11:17 AM George Vickers - 08/13/2023 11:00 AM Paulina Paula DO - 08/08/2023 7:37 PM Paulina Paula DO - 08/08/2023 7:37 PM EDTDischarge Instructions Note Date & Type Note Facility 08-13-2023 History of Present illness Narrative Images from the original note were not included. Gastroenterology Clinic Visit Paulina Jones DO [address] [place] [address] Attending Physician: Dr. Bethany Johnson MD PCP: ISABELLA Leon Last GI visit: 12/05/2022 Last endoscopy: Most recent visit in Gastroenterology was on 06/29/2017 with [facility] MANOMETRY Heather Johns is a 48 year old female with a PMHx of psoriasis (on Humira), GARY, HLD, depression/manic behavior and GERD whom we are consulted to see regarding left upper quadrant abdominal pain. Has been there for a week. Is severe ranging 8-10/10 in pain, described as sharp stabbing. Nothing makes it better. Movement make it worse. Not associated with food or bowel movements Has reflux and is on omeprazole 40 mg daily with symptom control Currently taking robaxin and ibuprofen which are prescribed by her PCP and medical marijuana which helps her pain Was seen in ED and work-up including LFTs, BMP, CBC and EKG were non-remarkable.CT abdomen pelvis with no acute process but shows small hiatal hernia that has been seen on prior EGD in 2017 as 2 cm. Patient is anxious that her symptoms are due to hiatal hernia. Past Medical History: Diagnosis Date Anxiety Asthma Depression GERD (gastroesophageal reflux disease) HLD (hyperlipidemia) Hyperthyroidism Manic behavior (HCC) GARY (obstructive sleep apnea) PONV (postoperative nausea and vomiting) Past Surgical History: Procedure Laterality Date COLONOSCOPY N/A 09/16/2016 Procedure: COLONOSCOPY; Surgeon: Alyx Villela MD; Location: [facility]; Service: Gastroenterology ESOPHAGOGASTRODUODENOSCOPY N/A 04/20/2017 Procedure: ESOPHAGOGASTRODUODENOSCOPY; Surgeon: Caio Donahue MD; Location: [facility]; Service: Gastroenterology SEPTOPLASTY N/A 01/08/2018 Procedure: SEPTOPLASTY, turb reduction; Surgeon: Jhony Soler MD; Location: PERIOPERATIVE SERVICES; Service: Otolaryngology TONSILLECTOMY Bilateral 01/08/2018 Procedure: adenoidectomy; Surgeon: Jhony Soler MD; Location: PERIOPERATIVE SERVICES; Service: Otolaryngology No family history on file. Social History Tobacco Use Smoking status: Former Packs/day: 0.25 Years: 34.00 Pack years: 8.50 Types: Cigarettes Smokeless tobacco: Never Substance Use Topics Alcohol use: Yes Comment: socially Drug use: No Allergies Allergen Reactions Morphine Confusion Naproxen Upset Stomach Penicillins Rash Toradol [Ketorolac Tromethamine] Vomiting Tramadol Upset Stomach Current Outpatient Medications Medication Sig Dispense Refill tizanidine (ZANAFLEX) 4 MG tablet Take 1 Tablet by mouth every 6 hours as needed. ibuprofen (MOTRIN) 600 MG tablet Take 600 mg by mouth. duloxetine (CYMBALTA) 30 MG capsule Take 1 Capsule by mouth daily. Tapinarof 1 % CREA Apply 2 g externally daily. 60 g 1 clobetasol (TEMOVATE) 0.05 % cream Apply topically 2 times daily to rash on hands and feet 60 g 3 Adalimumab (Humira Pen) 40 MG/0.4ML PNKT Inject 40 mg under the skin every 14 days. 2 Each 3 calcipotriene (DOVONOX) 0.005 % ointment Apply topically 2 times daily. Apply thin layer to affected area. 60 g 3 naloxone 4 MG/0.1ML LIQD nasal liquid Instill 0.1 mL into one nostril (alternate sides) as needed for Other (Drug overdose, give and call 911) for up to 1 dose Indications: Opioid Overdose. 1 Each 1 eucerin (DERMACERIN) cream Apply topically as needed. Apply thin layer to affected area. 1 Tube 1 triamcinolone 0.1 % cream Apply topically 2 times daily. Apply thin layer to affected area. 30 g 0 omeprazole (PRILOSEC) 40 MG capsule Take 1 Capsule by mouth daily. 60 Capsule 3 sodium chloride (OCEAN NASAL SPRAY) 0.65 % nasal spray Instill 4 Sprays into each nostril 4 times daily. 2 Bottle 3 Linaclotide 145 MCG CAPS capsule Take 1 Capsule by mouth daily. 30 Capsule 3 albuterol (PROVENTIL HFA) inhaler 90 mcg/inh Inhale 2 Puffs. fluticasone (FLOVENT HFA) 110 MCG/ACT inhaler Inhale 2 Puffs. atorvastatin (LIPITOR) 20 MG tablet Take 20 mg by mouth daily. lamotrigine (LAMICTAL) 100 MG tablet Take 100 mg by mouth daily. No current facility-administered medications for this visit. Review of Systems Constitutional: Negative for fever and weight loss. Eyes: Negative for blurred vision and double vision. Respiratory: Negative for cough and hemoptysis. Gastrointestinal: Positive for abdominal pain. Negative for constipation, diarrhea, heartburn, nausea and vomiting. Musculoskeletal: Negative. Negative for myalgias and neck pain. Neurological: Negative for dizziness, tingling and headaches. Psychiatric/Behavioral: Negative. Negative for depression. Physical Exam Constitutional: Appearance: Normal appearance. HENT: Head: Normocephalic. Neurological: General: No focal deficit present. Mental Status: She is alert and oriented to person, place, and time. Cranial Nerves: No cranial nerve deficit. Psychiatric: Mood and Affect: Mood normal. Comments: Anxious Labs: CBC (last 3 years, up to 5 values) WBC RBC Hgb Hct MCV RDW Plt 08/08/23 1123 8.3 4.40 12.9 39.5 90 12.6 328 11/12/22 1924 4.5 4.44 13.1 39.3 89 12.9 254 Basic Metabolic Panel Na K Cl CO2 Gap Glu BUN Cr Ca 08/08/23 1123 138 4.4 106 22 14 109 22 0.99 9.8 12/22/22 1317 143 4.2 105 28 14 85 22 0.86 9.8 11/12/22 1924 139 4.4 Comment: Hemolysis present 104 27 12 90 21 0.92 9.2 LFT's (last 3 years, up to 5 values) T Prot Albumin D Bili T Bili Alk Phos ALT AST 08/08/23 1123 7.4 4.3 0.06 0.4 79 17 13 Gastric emptying study 11/2022 IMPRESSION: 1. Normal gastric emptying, improved as compared to the prior study. EGD 03/2017 DUODENUM: Bulb and descending portion appeared normal. STOMACH: Pyloric channel appeared normal. Gastric antrum with scattered mucosal erythema without erosions or ulceration. Gastric body, fundus and cardia, including retroflexed views appear normal. Minor amount of foodstuff remnant in the stomach. ESOPHAGUS: Diaphragmatic hiatus was 39 cm from incisors and GE junction (upper margin of gastric folds) was at 37 cm from incisors. Squamocolumnar junction was at 37 cm from incisors. Mucosa appeared normal. A 2 cm sliding, type 1, hiatal hernia present. Irregular z-line. Random distal and proximal bx taken to evaluate for EoE - Bottle A. Colonoscopy 08/2016 Cecum: Normal. Ascending Colon: Normal. Hepatic Flexure: Normal. Transverse Colon: Normal. Splenic Flexure: Normal. Descending Colon: Normal. Sigmoid Colon: Normal. Rectum: Normal. Retroflexed Views: Rectum did not show internal hemorrhoids. No masses, ulcers, diverticula, polyps or strictures were present. Assessment and Recommendations: Heather Johns is a 48 year old female with a PMHx of psoriasis (on Humira), GARY, HLD, depression/manic behavior and GERD whom we are seeing today in the Gastroenterology clinic regarding her left upper quadrant abdominal pain which has been present and persistent for a week. Work-up in ED was non-remarkable. CT abdomen pelvis with no acute process but shows small hiatal hernia that has been seen on prior EGD in 2017 as 2 cm. Reassured her that her hiatal hernia seen on endoscopy in [address] scan recently were small and unlikely to be contributing to her symptoms. Also her other labs are reassuring and do not point towards a gastrointestinal etiology to her pain/discomfort. Pain sounds more musculoskeletal given is worse with movement. Encouraged her to follow-up with her PCP to explore other etiologies of pain such as cardiac if it does not resolve with conservative management and prn robaxin and ibuprofen which she is taking. #Left upper quadrant pain - likely musculoskeletal, recommend conservative measures #GERD - well controlled on omeprazole 40 mg daily Patient s/d/w Dr. Bethany Johnson MD A copy of this note was sent to PCP Leopoldo Woods APRN-RACHEL Vega MD Fellow, PGY-4 Division of Gastroenterology & Hepatology [facility] GI ATTENDING: Patient seen and examined. Case discussed and reviewed with Dr. Vega. Agree with history/physical/note/findings and plan as outlined above. Bethany Johnson M.D. Patient was identified by name and date of . George BowensPatient at risk for falls:No Falls Risk protocol implemented: No documented in this encounter [facility] 08-08-2023 Physician Emergency department Note Robert mcbride Roby: CT a/pw/ NAD, d dimer less than 200 making PE or AD less likley, pt's feeling better, re exam: abdomen w/ + BS, ND, mild LUQ tenderness, no guarding/rebound. Stable for outpatient management [facility] Work Phone: 08-08-2023 Emergency department Note Robert mcbride Roby: CT a/pw/ NAD, d dimer less than 200 making PE or AD less likley, pt's feeling better, re exam: abdomen w/ + BS, ND, mild LUQ tenderness, no guarding/rebound. Stable for outpatient management Physician Triage Note The patient was seen by me in intake for a brief history and physical obtained for triage reasons only. My exam is intended to be an initial medical screening exam for disposition within our ED with limited initial orders placed, when appropriate, to expedite care by the treating team. HIPAA: Verbal permission granted from patient to discuss case, including protected health information, in front of family / friends in room at the time of the evaluation. Patient complains of Severe epigastric pain x 10-2 days. No vomiting. Ate a Taco salad lest evening. BM's ok .No UTI symptoms. Went to [facility] [place] for this problem, Exam, X-rays done. Dx Muscle strain Previous appendectomy and hysterectomy. Focused Exam: Tearful, very anxious. +Epigastric discomfort. The patient is deemed appropriate for [facility]. Initial orders: Labs.. The remainder of testing, treatment, and diagnostic plan will be assumed by the next clinician who will be seeing the patient as a primary patient, creating a plan and impression, and final disposition of the patient from the ED. I had a limited role in this case. PLEASE SEE OTHER ATTENDING/RESIDENT/PHYSICIAN/CN P/PA NOTATION Adan Martínez MD documented in this encounter [facility] 08-08-2023 Hospital Discharge instructions Paulina Jones DO - 08/08/2023 4:01 PM EDT Take nexium as directed. Take tylenol as directed as needed for pain. Abdominal Pain Instructions: Return to the ED if the stomach pain worsens, if it moves to the right lower part of the stomach, or if you can't keep down liquids Chest Pain Instructions: Return to the ED if you develop shortness of breath, chest pain, coughing up blood, or pain that radiates from your chest to your back. Procedures done during this visit: None documented in this encounter [facility] 08-08-2023 History of Present illness Narrative Images from the original note were not included. Maya, Per 07/21/23 follow-up, patient is no longer using Humira until further notice due to possible respiratory infection. Patient now treating with topicals for now. Will hold Humira renewal until we hear further instruction for MD or patient. SPECIALTY PHARMACY REFERRAL (Department: DERMATOLOGY) Prior Authorization Required. Patient Information: Heather Cantu McLynnlambert 1975 Specialty Medication Assessment: Medication Humira 40 mg/0.4ml Pen - Inject 0.4 ml under the skin every 14 days Current PA is set to 08/21/23 Maya Andrews CPhT [facility] [phone] option 3 documented in this encounter [facility] 08-08-2023 Note Physician Triage Not e The patient was seen by me in intake for a brief history and physical obtained for triage reasons only. My exam is intended to be an initial medical screening exam for disposition within our ED with limited initial orders placed, when appropriate, to expedite care by the treating team. HIPAA: Verbal permission granted from patient to discuss case, including protected health information, in front of family / friends in room at the time of the evaluation. Patient complains of Severe epigastric pain x 10-2 days. No vomiting. Ate a Taco salad lest evening. BM's ok .No UTI symptoms. Went to [facility] [place] for this problem, Exam, X-rays done. Dx Muscle strain Previous appendectomy and hysterectomy. Focused Exam: Tearful, very anxious. +Epigastric discomfort. The patient is deemed appropriate for [facility]. Initial orders: Labs.. The remainder of testing, treatment, and diagnostic plan will be assumed by the next clinician who will be seeing the patient as a primary patient, creating a plan and impression, and final disposition of the patient from the ED. I had a limited role in this case. PLEASE SEE OTHER ATTENDING/RESIDENT/PHYSICIAN/CN P/PA NOTATION Adan Martínez MD [facility] 08-08-2023 Physician Emergency department Note Physician Triage Note The patient was seen by me in intake for a brief history and physical obtained for triage reasons only. My exam is intended to be an initial medical screening exam for disposition within our ED with limited initial orders placed, when appropriate, to expedite care by the treating team. HIPAA: Verbal permission granted from patient to discuss case, including protected health information, in front of family / friends in room at the time of the evaluation. Patient complains of Severe epigastric pain x 10-2 days. No vomiting. Ate a Taco salad lest evening. BM's ok .No UTI symptoms. Went to [facility] [place] for this problem, Exam, X-rays done. Dx Muscle strain Previous appendectomy and hysterectomy. Focused Exam: Tearful, very anxious. +Epigastric discomfort. The patient is deemed appropriate for West. Initial orders: Labs.. The remainder of testing, treatment, and diagnostic plan will be assumed by the next clinician who will be seeing the patient as a primary patient, creating a plan and impression, and final disposition of the patient from the ED. I had a limited role in this case. PLEASE SEE OTHER ATTENDING/RESIDENT/PHYSICIAN/CN P/PA NOTATION Adan Martínez MD [facility] Work Phone: 08-07-2023 Note SPECIALTY PHARMACY [facility] (Department: DERMATOLOGY) Prior Authorization Required. Patient Information: Heather Johns 1975 Specialty Medication Assessment: Medication Humira 40 mg/0.4ml Pen - Inject 0.4 ml under the skin every 14 days Current PA is set to 08/21/23 Maya Andrews CPhT [facility] [phone] option 3 [facility] 07-22-2023 History of Present illness Narrative Images from the original note were not included. Hi Dr. Grady, Please see below denial from this patient's insurance for the Vtama Cream: Please let me know how you would like to proceed. Joseph Images from the original note were not included. SPECIALTY PHARMACY - Prior Auth Denied- PHARMACY BENEFIT 07/22/23 1455 Specialty Med Prior Auth Info - Primary Specialty Med PA Outcome Denied Payor Approval Rx Benefit Insurance Payor [employer] Dual Medicare PA Number [id number] Denial Reason Required Step Therapy PA Notes Patient needs to try one of the covered drugs: 1) Pimecrolimus cream, Tacrolimus*, Tazarotene cream*. 2) OR the provider needs to give the insurance specific reasons why one (1) of the covered drug(s) is not appropriate for the patient Specialty Prior Auth Medication Details - Primary Medication(s) Vtama 1% Cream - Apply 2 grams externally daily Unit of Measure g Is Approval [facility] Specific? N Thank you, Maya Andrews CPhT SPECIALTY PHARMACY - Prior Auth Submitted- PHARMACY BENEFIT Medication and dosing: vtama 1% cream - apply 2 g externally daily Insurance has been verified to be: [facility] dual medicare ([employer]umrx) PA submitted on date: 07/22/2023 Method submitted: epa Acosta: [id number] Pharmacy will addend this encounter with response from plan. Thank you, Maya Anrdews CPhT Images from the original note were not included. Heather Johns 1975 SPECIALTY REFERRAL Medication: Tapinarof 1 % CREA Apply 2 g externally daily. Prescriber: Shira Grady DO ( ) Dermatology Dept Indication for treatment (ICD-10): Psoriasis (L40.9) Allergies Allergen Reactions Morphine Confusion Naproxen Upset Stomach Penicillins Rash Toradol [Ketorolac Tromethamine] Vomiting Tramadol Upset Stomach Weight was 79.4 kg on 02/13/2023 Immunization History Administered Date(s) Administered Influenza, Injectable, MDCK, Preservative Free, Quadrivalent (RPN=203) 09/12/2022 Influenza, injectable, quadrivalent, preservative free (IIV4) (SAA=149) 08/18/2016, 12/23/2017, 08/16/2018, 09/21/2019, 08/31/2020, 11/06/2021 Moderna Bivalent (6m-5y dose 1 or 2, 25 mcg/0.25 mL; 6-11y any dose, 25 mcg/0.25 mL; 12+ yrs any dose, 50 mcg/0.5 mL) COVID-19, mRNA, (AJP=932) 01/06/2023 Moderna Monovalent (12+ yrs) COVID-19 vaccine, mRNA, spike protein, LNP, PF, 100 mcg/0.5 mL (RNC=648) 02/27/2021, 03/27/2021, 08/28/2021 Pneumococcal conjugate 13 valent (PCV13) (AQK=844) 09/21/2019 Pneumococcal polysaccharide 23 Valent (PPSV23) (CVX=33) 01/10/2016, 11/06/2021 Tdap (TFY=871) 01/10/2016 Is the request for initial or continuation of therapy? Initial Will the patient be self-administrating? Yes Supporting Clinical Information Prior treatments include: -- Humira -- Dovonox -- Clobetasol -- Triamcinolone -- Eucerin Current condition medications include: Current Dermatologics Antipsoriatics Instructions Tapinarof 1 % CREA Apply 2 g externally daily. calcipotriene (DOVONOX) 0.005 % ointment Apply topically 2 times daily. Apply thin layer to affected area. Corticosteroids - Topical Instructions clobetasol (TEMOVATE) 0.05 % cream Apply topically 2 times daily to rash on hands and feet triamcinolone 0.1 % cream Apply topically 2 times daily. Apply thin layer to affected area. Misc. Topical Instructions eucerin (DERMACERIN) cream Apply topically as needed. Apply thin layer to affected area. Current Outpatient Medications Medication Sig Dispense Refill Tapinarof 1 % CREA Apply 2 g externally daily. 60 g 1 clobetasol (TEMOVATE) 0.05 % cream Apply topically 2 times daily to rash on hands and feet 60 g 3 Adalimumab (Humira Pen) 40 MG/0.4ML PNKT Inject 40 mg under the skin every 14 days. 2 Each 3 calcipotriene (DOVONOX) 0.005 % ointment Apply topically 2 times daily. Apply thin layer to affected area. 60 g 3 naloxone 4 MG/0.1ML LIQD nasal liquid Instill 0.1 mL into one nostril (alternate sides) as needed for Other (Drug overdose, give and call 911) for up to 1 dose Indications: Opioid Overdose. 1 Each 1 eucerin (DERMACERIN) cream Apply topically as needed. Apply thin layer to affected area. 1 Tube 1 triamcinolone 0.1 % cream Apply topically 2 times daily. Apply thin layer to affected area. 30 g 0 omeprazole (PRILOSEC) 40 MG capsule Take 1 Capsule by mouth daily. 60 Capsule 3 sodium chloride (OCEAN NASAL SPRAY) 0.65 % nasal spray Instill 4 Sprays into each nostril 4 times daily. 2 Bottle 3 Linaclotide 145 MCG CAPS capsule Take 1 Capsule by mouth daily. 30 Capsule 3 albuterol (PROVENTIL HFA) inhaler 90 mcg/inh Inhale 2 Puffs. fluticasone (FLOVENT HFA) 110 MCG/ACT inhaler Inhale 2 Puffs. atorvastatin (LIPITOR) 20 MG tablet Take 20 mg by mouth daily. lamotrigine (LAMICTAL) 100 MG tablet Take 100 mg by mouth daily. No current facility-administered medications for this visit. __ Chart Notes provider (date 07/22/23) HISTORY OF PRESENT ILLNESS Visit Date: 07/21/2023 TAO: 11/12/[address] Deangelo MD Patient: Heather Johns is a 48 year old White female Reason for Visit: Psoriasis, F/U Patient is 48 year old female who presents today for follow up on psoriasis of palms and soles. She reports that she stopped taking Humira about one months ago and her skin is still clear. She has been very ill with bronchitis (maybe pneumonia) and a cough since May 2023. Because of this, she stopped taking Humira. She is doing well otherwise. She is going to see her primary care doctor and possibly a lung doctor as well. Pertinent findings include: - Normal appearing skin of palms, dorsal hands, and face and neck. ---- ASSESSMENT & PLAN ------ Diagnoses and all orders for this visit: Psoriasis -Discontinue Humira at this time until the pulmonary symptoms are fully diagnosed -If psoriasis recurs, initiate clobetasol BID. If covered, can instead Tapinarof cream once daily. -Rx'd Tapinarof 1 % CREA; Apply 2 g externally daily. -Rx'd lobetasol (TEMOVATE) 0.05 % cream; Apply topically 2 times daily to rash on hands and feet -Steroid Education Provided To Patient: -Avoid applying topical steroid medication to face, eyes, intertriginous areas -Side effects could be skin thinning, infection, stretch crowell, glaucoma -You may moisturize skin before or after applying the topical steroid High risk medication use D/C Humira at this time until respiratory symptoms are diagnosed and treated ____ Thank you, Joseph Alfredo, PharmD, [facility] [phone], Option #3 SPECIALTY PHARMACY REFERRAL (Department: DERMATOLOGY) Prior Authorization Required. Patient Information: Heather Johns 1975 Specialty Medication Assessment: Medication Vtama 1% cream - Apply 2 g externally daily Maya Andrews CPhT [facility] [phone] option 3 documented in this encounter [facility] 07-22-2023 History of Present illness Narrative Images from the original note were not included. Hi Dr. Grady, Please see below denial from this patient's insurance for the Vtama Cream: Please let me know how you would like to proceed. Joseph Images from the original note were not included. SPECIALTY PHARMACY - Prior Auth Denied- PHARMACY BENEFIT 07/22/23 1455 Specialty Med Prior Auth Info - Primary Specialty Med PA Outcome Denied Payor Approval Rx Benefit Insurance Payor [employer] Dual Medicare PA Number [id number] Denial Reason Required Step Therapy PA Notes Patient needs to try one of the covered drugs: 1) Pimecrolimus cream, Tacrolimus*, Tazarotene cream*. 2) OR the provider needs to give the insurance specific reasons why one (1) of the covered drug(s) is not appropriate for the patient Specialty Prior Auth Medication Details - Primary Medication(s) Vtama 1% Cream - Apply 2 grams externally daily Unit of Measure g Is Approval [facility] Specific? N Thank you, Maya Andrews CPhT SPECIALTY PHARMACY - Prior Auth Submitted- PHARMACY BENEFIT Medication and dosing: vtama 1% cream - apply 2 g externally daily Insurance has been verified to be: [facility] dual medicare ([employer]) PA submitted on date: 07/22/2023 Method submitted: epa Acosta: [id number] Pharmacy will addend this encounter with response from plan. Thank you, Maya Andrews CPhT Images from the original note were not included. Heather Johns 1975 SPECIALTY REFERRAL Medication: Tapinarof 1 % CREA Apply 2 g externally daily. Prescriber: Shira Grady DO ( ) Dermatology Dept Indication for treatment (ICD-10): Psoriasis (L40.9) Allergies Allergen Reactions Morphine Confusion Naproxen Upset Stomach Penicillins Rash Toradol [Ketorolac Tromethamine] Vomiting Tramadol Upset Stomach Weight was 79.4 kg on 02/13/2023 Immunization History Administered Date(s) Administered Influenza, Injectable, MDCK, Preservative Free, Quadrivalent (MHY=679) 09/12/2022 Influenza, injectable, quadrivalent, preservative free (IIV4) (AXB=182) 08/18/2016, 12/23/2017, 08/16/2018, 09/21/2019, 08/31/2020, 11/06/2021 Moderna Bivalent (6m-5y dose 1 or 2, 25 mcg/0.25 mL; 6-11y any dose, 25 mcg/0.25 mL; 12+ yrs any dose, 50 mcg/0.5 mL) COVID-19, mRNA, (TWY=196) 01/06/2023 Moderna Monovalent (12+ yrs) COVID-19 vaccine, mRNA, spike protein, LNP, PF, 100 mcg/0.5 mL (YZC=238) 02/27/2021, 03/27/2021, 08/28/2021 Pneumococcal conjugate 13 valent (PCV13) (ZPO=217) 09/21/2019 Pneumococcal polysaccharide 23 Valent (PPSV23) (CVX=33) 01/10/2016, 11/06/2021 Tdap (DXJ=342) 01/10/2016 Is the request for initial or continuation of therapy? Initial Will the patient be self-administrating? Yes Supporting Clinical Information Prior treatments include: -- Humira -- Dovonox -- Clobetasol -- Triamcinolone -- Eucerin Current condition medications include: Current Dermatologics Antipsoriatics Instructions Tapinarof 1 % CREA Apply 2 g externally daily. calcipotriene (DOVONOX) 0.005 % ointment Apply topically 2 times daily. Apply thin layer to affected area. Corticosteroids - Topical Instructions clobetasol (TEMOVATE) 0.05 % cream Apply topically 2 times daily to rash on hands and feet triamcinolone 0.1 % cream Apply topically 2 times daily. Apply thin layer to affected area. Misc. Topical Instructions eucerin (DERMACERIN) cream Apply topically as needed. Apply thin layer to affected area. Current Outpatient Medications Medication Sig Dispense Refill Tapinarof 1 % CREA Apply 2 g externally daily. 60 g 1 clobetasol (TEMOVATE) 0.05 % cream Apply topically 2 times daily to rash on hands and feet 60 g 3 Adalimumab (Humira Pen) 40 MG/0.4ML PNKT Inject 40 mg under the skin every 14 days. 2 Each 3 calcipotriene (DOVONOX) 0.005 % ointment Apply topically 2 times daily. Apply thin layer to affected area. 60 g 3 naloxone 4 MG/0.1ML LIQD nasal liquid Instill 0.1 mL into one nostril (alternate sides) as needed for Other (Drug overdose, give and call 911) for up to 1 dose Indications: Opioid Overdose. 1 Each 1 eucerin (DERMACERIN) cream Apply topically as needed. Apply thin layer to affected area. 1 Tube 1 triamcinolone 0.1 % cream Apply topically 2 times daily. Apply thin layer to affected area. 30 g 0 omeprazole (PRILOSEC) 40 MG capsule Take 1 Capsule by mouth daily. 60 Capsule 3 sodium chloride (OCEAN NASAL SPRAY) 0.65 % nasal spray Instill 4 Sprays into each nostril 4 times daily. 2 Bottle 3 Linaclotide 145 MCG CAPS capsule Take 1 Capsule by mouth daily. 30 Capsule 3 albuterol (PROVENTIL HFA) inhaler 90 mcg/inh Inhale 2 Puffs. fluticasone (FLOVENT HFA) 110 MCG/ACT inhaler Inhale 2 Puffs. atorvastatin (LIPITOR) 20 MG tablet Take 20 mg by mouth daily. lamotrigine (LAMICTAL) 100 MG tablet Take 100 mg by mouth daily. No current facility-administered medications for this visit. __ Chart Notes provider (date 07/22/23) HISTORY OF PRESENT ILLNESS Visit Date: 07/21/2023 TAO: 11/12/[address] Deangelo MD Patient: Heather Johns is a 48 year old White female Reason for Visit: Psoriasis, F/U Patient is 48 year old female who presents today for follow up on psoriasis of palms and soles. She reports that she stopped taking Humira about one months ago and her skin is still clear. She has been very ill with bronchitis (maybe pneumonia) and a cough since May 2023. Because of this, she stopped taking Humira. She is doing well otherwise. She is going to see her primary care doctor and possibly a lung doctor as well. Pertinent findings include: - Normal appearing skin of palms, dorsal hands, and face and neck. ---- ASSESSMENT & PLAN ------ Diagnoses and all orders for this visit: Psoriasis -Discontinue Humira at this time until the pulmonary symptoms are fully diagnosed -If psoriasis recurs, initiate clobetasol BID. If covered, can instead Tapinarof cream once daily. -Rx'd Tapinarof 1 % CREA; Apply 2 g externally daily. -Rx'd lobetasol (TEMOVATE) 0.05 % cream; Apply topically 2 times daily to rash on hands and feet -Steroid Education Provided To Patient: -Avoid applying topical steroid medication to face, eyes, intertriginous areas -Side effects could be skin thinning, infection, stretch crowell, glaucoma -You may moisturize skin before or after applying the topical steroid High risk medication use D/C Humira at this time until respiratory symptoms are diagnosed and treated ____ Thank you, Joseph Alfredo, PharmD, [facility] [phone], Option #3 SPECIALTY PHARMACY REFERRAL (Department: DERMATOLOGY) Prior Authorization Required. Patient Information: Heather Johns 1975 Specialty Medication Assessment: Medication Vtama 1% cream - Apply 2 g externally daily Maya Andrews CPhT [facility] [phone] option 3 documented in this encounter [facility] 07-22-2023 History of Present illness Narrative Images from the original note were not included. SPECIALTY PHARMACY - Prior Auth Denied- PHARMACY BENEFIT 07/22/23 1455 Specialty Med Prior Auth Info - Primary Specialty Med PA Outcome Denied Payor Approval Rx Benefit Insurance Payor [employer] Dual Medicare PA Number [id number] Denial Reason Required Step Therapy PA Notes Patient needs to try one of the covered drugs: 1) Pimecrolimus cream, Tacrolimus*, Tazarotene cream*. 2) OR the provider needs to give the insurance specific reasons why one (1) of the covered drug(s) is not appropriate for the patient Specialty Prior Auth Medication Details - Primary Medication(s) Vtama 1% Cream - Apply 2 grams externally daily Unit of Measure g Is Approval [facility] Specific? N Thank you, Maya Andrews CPhT SPECIALTY PHARMACY - Prior Auth Submitted- PHARMACY BENEFIT Medication and dosing: vtama 1% cream - apply 2 g externally daily Insurance has been verified to be: [facility] dual medicare ([employer]) [place] submitted on date: 07/22/2023 Method submitted: [facility] [place]: [id number] Pharmacy will addend this encounter with response from plan. Thank you, Maya Andrews CPhT Images from the original note were not included. Heather Johns 1975 SPECIALTY REFERRAL Medication: Tapinarof 1 % CREA Apply 2 g externally daily. Prescriber: Shira Grady DO ( ) Dermatology Dept Indication for treatment (ICD-10): Psoriasis (L40.9) Allergies Allergen Reactions Morphine Confusion Naproxen Upset Stomach Penicillins Rash Toradol [Ketorolac Tromethamine] Vomiting Tramadol Upset Stomach Weight was 79.4 kg on 02/13/2023 Immunization History Administered Date(s) Administered Influenza, Injectable, MDCK, Preservative Free, Quadrivalent (TJS=678) 09/12/2022 Influenza, injectable, quadrivalent, preservative free (IIV4) (MHS=357) 08/18/2016, 12/23/2017, 08/16/2018, 09/21/2019, 08/31/2020, 11/06/2021 Moderna Bivalent (6m-5y dose 1 or 2, 25 mcg/0.25 mL; 6-11y any dose, 25 mcg/0.25 mL; 12+ yrs any dose, 50 mcg/0.5 mL) COVID-19, mRNA, (BGV=225) 01/06/2023 Moderna Monovalent (12+ yrs) COVID-19 vaccine, mRNA, spike protein, LNP, PF, 100 mcg/0.5 mL (APX=186) 02/27/2021, 03/27/2021, 08/28/2021 Pneumococcal conjugate 13 valent (PCV13) (BGF=443) 09/21/2019 Pneumococcal polysaccharide 23 Valent (PPSV23) (CVX=33) 01/10/2016, 11/06/2021 Tdap (DCR=917) 01/10/2016 Is the request for initial or continuation of therapy? Initial Will the patient be self-administrating? Yes Supporting Clinical Information Prior treatments include: -- Humira -- Dovonox -- Clobetasol -- Triamcinolone -- Eucerin Current condition medications include: Current Dermatologics Antipsoriatics Instructions Tapinarof 1 % CREA Apply 2 g externally daily. calcipotriene (DOVONOX) 0.005 % ointment Apply topically 2 times daily. Apply thin layer to affected area. Corticosteroids - Topical Instructions clobetasol (TEMOVATE) 0.05 % cream Apply topically 2 times daily to rash on hands and feet triamcinolone 0.1 % cream Apply topically 2 times daily. Apply thin layer to affected area. Misc. Topical Instructions eucerin (DERMACERIN) cream Apply topically as needed. Apply thin layer to affected area. Current Outpatient Medications Medication Sig Dispense Refill Tapinarof 1 % CREA Apply 2 g externally daily. 60 g 1 clobetasol (TEMOVATE) 0.05 % cream Apply topically 2 times daily to rash on hands and feet 60 g 3 Adalimumab (Humira Pen) 40 MG/0.4ML PNKT Inject 40 mg under the skin every 14 days. 2 Each 3 calcipotriene (DOVONOX) 0.005 % ointment Apply topically 2 times daily. Apply thin layer to affected area. 60 g 3 naloxone 4 MG/0.1ML LIQD nasal liquid Instill 0.1 mL into one nostril (alternate sides) as needed for Other (Drug overdose, give and call 911) for up to 1 dose Indications: Opioid Overdose. 1 Each 1 eucerin (DERMACERIN) cream Apply topically as needed. Apply thin layer to affected area. 1 Tube 1 triamcinolone 0.1 % cream Apply topically 2 times daily. Apply thin layer to affected area. 30 g 0 omeprazole (PRILOSEC) 40 MG capsule Take 1 Capsule by mouth daily. 60 Capsule 3 sodium chloride (OCEAN NASAL SPRAY) 0.65 % nasal spray Instill 4 Sprays into each nostril 4 times daily. 2 Bottle 3 Linaclotide 145 MCG CAPS capsule Take 1 Capsule by mouth daily. 30 Capsule 3 albuterol (PROVENTIL HFA) inhaler 90 mcg/inh Inhale 2 Puffs. fluticasone (FLOVENT HFA) 110 MCG/ACT inhaler Inhale 2 Puffs. atorvastatin (LIPITOR) 20 MG tablet Take 20 mg by mouth daily. lamotrigine (LAMICTAL) 100 MG tablet Take 100 mg by mouth daily. No current facility-administered medications for this visit. __ Chart Notes provider (date 07/22/23) HISTORY OF PRESENT ILLNESS Visit Date: 07/21/2023 TAO: 11/12/[address] Deangelo MD Patient: Heather Johns is a 48 year old White female Reason for Visit: Psoriasis, F/U Patient is 48 year old female who presents today for follow up on psoriasis of palms and soles. She reports that she stopped taking Humira about one months ago and her skin is still clear. She has been very ill with bronchitis (maybe pneumonia) and a cough since May 2023. Because of this, she stopped taking Humira. She is doing well otherwise. She is going to see her primary care doctor and possibly a lung doctor as well. Pertinent findings include: - Normal appearing skin of palms, dorsal hands, and face and neck. ---- ASSESSMENT & PLAN ------ Diagnoses and all orders for this visit: Psoriasis -Discontinue Humira at this time until the pulmonary symptoms are fully diagnosed -If psoriasis recurs, initiate clobetasol BID. If covered, can instead Tapinarof cream once daily. -Rx'd Tapinarof 1 % CREA; Apply 2 g externally daily. -Rx'd lobetasol (TEMOVATE) 0.05 % cream; Apply topically 2 times daily to rash on hands and feet -Steroid Education Provided To Patient: -Avoid applying topical steroid medication to face, eyes, intertriginous areas -Side effects could be skin thinning, infection, stretch crowell, glaucoma -You may moisturize skin before or after applying the topical steroid High risk medication use D/C Humira at this time until respiratory symptoms are diagnosed and treated ____ Thank you, Joseph Alfredo, PharmD, [facility] [phone], Option #3 SPECIALTY PHARMACY REFERRAL (Department: DERMATOLOGY) Prior Authorization Required. Patient Information: Heather Cantu McRaimundo 1975 Specialty Medication Assessment: Medication Vtama 1% cream - Apply 2 g externally daily Maya Andrews CPhT [facility] [phone] option 3 documented in this encounter [facility] 07-22-2023 Note Heather Cantu Nat 1974 SPECIALTY REFERRAL Medication: Tapinarof 1 % CREA Apply 2 g externally daily. Prescriber: Shira Grady DO ( ) Dermatology Dept Indication for treatment (ICD-10): Psoriasis (L40.9) Allergies Allergen Reactions Morphine Confusion Naproxen Upset Stomach Penicillins Rash Toradol [Ketorolac Tromethamine] Vomiting Tramadol Upset Stomach Weight was 79.4 kg on 02/13/2023 Immunization History Administered Date(s) Administered Influenza, Injectable, MDCK, Preservative Free, Quadrivalent (OYM=958) 09/12/2022 Influenza, injectable, quadrivalent, preservative free (IIV4) (DKS=224) 08/18/2016, 12/23/2017, 08/16/2018, 09/21/2019, 08/31/2020, 11/06/2021 Moderna Bivalent (6m-5y dose 1 or 2, 25 mcg/0.25 mL; 6-11y any dose, 25 mcg/0.25 mL; 12+ yrs any dose, 50 mcg/0.5 mL) COVID-19, mRNA, (CBG=670) 01/06/2023 Moderna Monovalent (12+ yrs) COVID-19 vaccine, mRNA, spike protein, LNP, PF, 100 mcg/0.5 mL (VDG=227) 02/27/2021, 03/27/2021, 08/28/2021 Pneumococcal conjugate 13 valent (PCV13) (BFF=502) 09/21/2019 Pneumococcal polysaccharide 23 Valent (PPSV23) (CVX=33) 01/10/2016, 11/06/2021 Tdap (CGP=182) 01/10/2016 Is the request for initial or continuation of therapy? Initial Will the patient be self-administrating? Yes Supporting Clinical Information Prior treatments include: -- Humira -- Dovonox -- Clobetasol -- Triamcinolone -- Eucerin Current condition medications include: Current Dermatologics Antipsoriatics Instructions Tapinarof 1 % CREA Apply 2 g externally daily. calcipotriene (DOVONOX) 0.005 % ointment Apply topically 2 times daily. Apply thin layer to affected area. Corticosteroids - Topical Instructions clobetasol (TEMOVATE) 0.05 % cream Apply topically 2 times daily to rash on hands and feet triamcinolone 0.1 % cream Apply topically 2 times daily. Apply thin layer to affected area. Misc. Topical Instructions eucerin (DERMACERIN) cream Apply topically as needed. Apply thin layer to affected area. Current Outpatient Medications Medication Sig Dispense Refill Tapinarof 1 % CREA Apply 2 g externally daily. 60 g 1 clobetasol (TEMOVATE) 0.05 % cream Apply topically 2 times daily to rash on hands and feet 60 g 3 Adalimumab (Humira Pen) 40 MG/0.4ML PNKT Inject 40 mg under the skin every 14 days. 2 Each 3 calcipotriene (DOVONOX) 0.005 % ointment Apply topically 2 times daily. Apply thin layer to affected area. 60 g 3 naloxone 4 MG/0.1ML LIQD nasal liquid Instill 0.1 mL into one nostril (alternate sides) as needed for Other (Drug overdose, give and call 911) for up to 1 dose Indications: Opioid Overdose. 1 Each 1 eucerin (DERMACERIN) cream Apply topically as needed. Apply thin layer to affected area. 1 Tube 1 triamcinolone 0.1 % cream Apply topically 2 times daily. Apply thin layer to affected area. 30 g 0 omeprazole (PRILOSEC) 40 MG capsule Take 1 Capsule by mouth daily. 60 Capsule 3 sodium chloride (OCEAN NASAL SPRAY) 0.65 % nasal spray Instill 4 Sprays into each nostril 4 times daily. 2 Bottle 3 Linaclotide 145 MCG CAPS capsule Take 1 Capsule by mouth daily. 30 Capsule 3 albuterol (PROVENTIL HFA) inhaler 90 mcg/inh Inhale 2 Puffs. fluticasone (FLOVENT HFA) 110 MCG/ACT inhaler Inhale 2 Puffs. atorvastatin (LIPITOR) 20 MG tablet Take 20 mg by mouth daily. lamotrigine (LAMICTAL) 100 MG tablet Take 100 mg by mouth daily. No current facility-administered medications for this visit. __ Chart Notes provider (date 07/22/23) HISTORY OF PRESENT ILLNESS Visit Date: 07/21/2023 TAO: 11/12/[address] Deangelo MD Patient: Heather Johns is a 48 year old White female Reason for Visit: Psoriasis, F/U Patient is 48 year old female who presents today for follow up on psoriasis of palms and soles. She reports that she stopped taking Humira about one months ago and her skin is still clear. She has been very ill with bronchitis (maybe pneumonia) and a cough since May 2023. Because of this, she stopped taking Humira. She is doing well otherwise. She is going to see her primary care doctor and possibly a lung doctor as well. Pertinent findings include: - Normal appearing skin of palms, dorsal hands, and face and neck. ---- ASSESSMENT AND PLAN ------ Diagnoses and all orders for this visit: Psoriasis -Discontinue Humira at this time until the pulmonary symptoms are fully diagnosed -If psoriasis recurs, initiate clobetasol BID. If covered, can instead Tapinarof cream once daily. -Rx'd Tapinarof 1 % CREA; Apply 2 g externally daily. -Rx'd lobetasol (TEMOVATE) 0.05 % cream; Apply topically 2 times daily to rash on hands and feet -Steroid Education Provided To Patient: -Avoid applying topical steroid medication to face, eyes (more content not included)... [facility] 07-22-2023 History of Present illness Narrative SPECIALTY PHARMACY - Prior Auth Submitted- PHARMACY BENEFIT Medication and dosing: vtama 1% cream - apply 2 g externally daily Insurance has been verified to be: [facility] dual medicare ([employer]) [place] submitted on date: 07/22/2023 Method submitted: [facility] [place]: [id number] Pharmacy will addend this encounter with response from plan. Thank you, Maya Andrews CPhT Images from the original note were not included. Heather Johns 1975 SPECIALTY REFERRAL Medication: Tapinarof 1 % CREA Apply 2 g externally daily. Prescriber: Shira Grady DO ( ) Dermatology Dept Indication for treatment (ICD-10): Psoriasis (L40.9) Allergies Allergen Reactions Morphine Confusion Naproxen Upset Stomach Penicillins Rash Toradol [Ketorolac Tromethamine] Vomiting Tramadol Upset Stomach Weight was 79.4 kg on 02/13/2023 Immunization History Administered Date(s) Administered Influenza, Injectable, MDCK, Preservative Free, Quadrivalent (PRT=770) 09/12/2022 Influenza, injectable, quadrivalent, preservative free (IIV4) (ZWW=398) 08/18/2016, 12/23/2017, 08/16/2018, 09/21/2019, 08/31/2020, 11/06/2021 Moderna Bivalent (6m-5y dose 1 or 2, 25 mcg/0.25 mL; 6-11y any dose, 25 mcg/0.25 mL; 12+ yrs any dose, 50 mcg/0.5 mL) COVID-19, mRNA, (UUS=322) 01/06/2023 Moderna Monovalent (12+ yrs) COVID-19 vaccine, mRNA, spike protein, LNP, PF, 100 mcg/0.5 mL (MZM=948) 02/27/2021, 03/27/2021, 08/28/2021 Pneumococcal conjugate 13 valent (PCV13) (KLU=477) 09/21/2019 Pneumococcal polysaccharide 23 Valent (PPSV23) (CVX=33) 01/10/2016, 11/06/2021 Tdap (DNA=749) 01/10/2016 Is the request for initial or continuation of therapy? Initial Will the patient be self-administrating? Yes Supporting Clinical Information Prior treatments include: -- Humira -- Dovonox -- Clobetasol -- Triamcinolone -- Eucerin Current condition medications include: Current Dermatologics Antipsoriatics Instructions Tapinarof 1 % CREA Apply 2 g externally daily. calcipotriene (DOVONOX) 0.005 % ointment Apply topically 2 times daily. Apply thin layer to affected area. Corticosteroids - Topical Instructions clobetasol (TEMOVATE) 0.05 % cream Apply topically 2 times daily to rash on hands and feet triamcinolone 0.1 % cream Apply topically 2 times daily. Apply thin layer to affected area. Misc. Topical Instructions eucerin (DERMACERIN) cream Apply topically as needed. Apply thin layer to affected area. Current Outpatient Medications Medication Sig Dispense Refill Tapinarof 1 % CREA Apply 2 g externally daily. 60 g 1 clobetasol (TEMOVATE) 0.05 % cream Apply topically 2 times daily to rash on hands and feet 60 g 3 Adalimumab (Humira Pen) 40 MG/0.4ML PNKT Inject 40 mg under the skin every 14 days. 2 Each 3 calcipotriene (DOVONOX) 0.005 % ointment Apply topically 2 times daily. Apply thin layer to affected area. 60 g 3 naloxone 4 MG/0.1ML LIQD nasal liquid Instill 0.1 mL into one nostril (alternate sides) as needed for Other (Drug overdose, give and call 911) for up to 1 dose Indications: Opioid Overdose. 1 Each 1 eucerin (DERMACERIN) cream Apply topically as needed. Apply thin layer to affected area. 1 Tube 1 triamcinolone 0.1 % cream Apply topically 2 times daily. Apply thin layer to affected area. 30 g 0 omeprazole (PRILOSEC) 40 MG capsule Take 1 Capsule by mouth daily. 60 Capsule 3 sodium chloride (OCEAN NASAL SPRAY) 0.65 % nasal spray Instill 4 Sprays into each nostril 4 times daily. 2 Bottle 3 Linaclotide 145 MCG CAPS capsule Take 1 Capsule by mouth daily. 30 Capsule 3 albuterol (PROVENTIL HFA) inhaler 90 mcg/inh Inhale 2 Puffs. fluticasone (FLOVENT HFA) 110 MCG/ACT inhaler Inhale 2 Puffs. atorvastatin (LIPITOR) 20 MG tablet Take 20 mg by mouth daily. lamotrigine (LAMICTAL) 100 MG tablet Take 100 mg by mouth daily. No current facility-administered medications for this visit. __ Chart Notes provider (date 07/22/23) HISTORY OF PRESENT ILLNESS Visit Date: 07/21/2023 TAO: 11/12/[address] Deangelo MD Patient: Heather Johns is a 48 year old White female Reason for Visit: Psoriasis, F/U Patient is 48 year old female who presents today for follow up on psoriasis of palms and soles. She reports that she stopped taking Humira about one months ago and her skin is still clear. She has been very ill with bronchitis (maybe pneumonia) and a cough since May 2023. Because of this, she stopped taking Humira. She is doing well otherwise. She is going to see her primary care doctor and possibly a lung doctor as well. Pertinent findings include: - Normal appearing skin of palms, dorsal hands, and face and neck. ---- ASSESSMENT & PLAN ------ Diagnoses and all orders for this visit: Psoriasis -Discontinue Humira at this time until the pulmonary symptoms are fully diagnosed -If psoriasis recurs, initiate clobetasol BID. If covered, can instead Tapinarof cream once daily. -Rx'd Tapinarof 1 % CREA; Apply 2 g externally daily. -Rx'd lobetasol (TEMOVATE) 0.05 % cream; Apply topically 2 times daily to rash on hands and feet -Steroid Education Provided To Patient: -Avoid applying topical steroid medication to face, eyes, intertriginous areas -Side effects could be skin thinning, infection, stretch crowell, glaucoma -You may moisturize skin before or after applying the topical steroid High risk medication use D/C Humira at this time until respiratory symptoms are diagnosed and treated ____ Thank you, Joseph Alfredo, PharmD, [facility] [phone], Option #3 SPECIALTY PHARMACY REFERRAL (Department: DERMATOLOGY) Prior Authorization Required. Patient Information: Heather Johns 1975 Specialty Medication Assessment: Medication Vtama 1% cream - Apply 2 g externally daily Maya Andrews CPhT [facility] [phone] option 3 documented in this encounter [facility] 07-22-2023 Note SPECIALTY PHARMACY Sky WESLEY (Department: DERMATOLOGY) Prior Authorization Required. Patient Information: Heather Johns 1975 Specialty Medication Assessment: Medication Vtama 1% cream - Apply 2 g externally daily Maya Andrews CPhT [facility] [phone] option 3 [facility] 07-21-2023 History of Present illness Narrative Documentation: Mode: Video Consent: This visit was initiated by the patient. Audio and visual communication was utilized in real-time. I confirmed understanding of risks and benefits of telehealth visits and obtained consent to proceed with the telemedicine visit. Location of Patient: Home of patient Time-Based Billing Justifications: Charting in Epic Patient visit (including performing a medically appropriate exam) Obtaining history (or reviewing separately obtained history) HISTORY OF PRESENT ILLNESS Visit Date: 07/21/2023 TAO: 11/12/[address] Deangelo MD Patient: Heather Johns is a 48 year old White female Reason for Visit: Psoriasis, F/U Patient is 48 year old female who presents today for follow up on psoriasis of palms and soles. She reports that she stopped taking Humira about one months ago and her skin is still clear. She has been very ill with bronchitis (maybe pneumonia) and a cough since May 2023. Because of this, she stopped taking Humira. She is doing well otherwise. She is going to see her primary care doctor and possibly a lung doctor as well. ---- REVIEW OF SYSTEMS ------ General: (-) fever, (-) chills, (-) weight change, (-) fatigue Skin: as above --------- PAST HISTORY Past Medical History: Past Medical History: Diagnosis Date Anxiety Asthma Depression GERD (gastroesophageal reflux disease) HLD (hyperlipidemia) Hyperthyroidism Manic behavior (HCC) GARY (obstructive sleep apnea) PONV (postoperative nausea and vomiting) Family Medical History: No family history on file. Current Medications: Current Outpatient Medications on File Prior to Visit Medication Sig Dispense Refill Adalimumab (Humira Pen) 40 MG/0.4ML PNKT Inject 40 mg under the skin every 14 days. 2 Each 3 clobetasol (TEMOVATE) 0.05 % cream Apply topically 2 times daily. For rash on hands and feet 60 g 3 calcipotriene (DOVONOX) 0.005 % ointment Apply topically 2 times daily. Apply thin layer to affected area. 60 g 3 naloxone 4 MG/0.1ML LIQD nasal liquid Instill 0.1 mL into one nostril (alternate sides) as needed for Other (Drug overdose, give and call 911) for up to 1 dose Indications: Opioid Overdose. 1 Each 1 eucerin (DERMACERIN) cream Apply topically as needed. Apply thin layer to affected area. 1 Tube 1 triamcinolone 0.1 % cream Apply topically 2 times daily. Apply thin layer to affected area. 30 g 0 omeprazole (PRILOSEC) 40 MG capsule Take 1 Capsule by mouth daily. 60 Capsule 3 sodium chloride (OCEAN NASAL SPRAY) 0.65 % nasal spray Instill 4 Sprays into each nostril 4 times daily. 2 Bottle 3 Linaclotide 145 MCG CAPS capsule Take 1 Capsule by mouth daily. 30 Capsule 3 albuterol (PROVENTIL HFA) inhaler 90 mcg/inh Inhale 2 Puffs. fluticasone (FLOVENT HFA) 110 MCG/ACT inhaler Inhale 2 Puffs. atorvastatin (LIPITOR) 20 MG tablet Take 20 mg by mouth daily. sertraline (ZOLOFT) 25 MG tablet Take 150 mg by mouth daily. lamotrigine (LAMICTAL) 100 MG tablet Take 100 mg by mouth daily. No current facility-administered medications on file prior to visit. Allergies: Allergies Allergen Reactions Morphine Confusion Naproxen Upset Stomach Penicillins Rash Toradol [Ketorolac Tromethamine] Vomiting Tramadol Upset Stomach -------- PHYSICAL EXAM Physical Exam: General: no acute distress, well nourished, well developed PSYCH: Pleasant, A&O Face: examined Neck: examined Hands: examined Skin type: I-II Pertinent findings include: - Normal appearing skin of palms, dorsal hands, and face and neck. ---- ASSESSMENT & PLAN ------ Diagnoses and all orders for this visit: Psoriasis -Discontinue Humira at this time until the pulmonary symptoms are fully diagnosed -If psoriasis recurs, initiate clobetasol BID. If covered, can instead Tapinarof cream once daily. -Rx'd Tapinarof 1 % CREA; Apply 2 g externally daily. -Rx'd lobetasol (TEMOVATE) 0.05 % cream; Apply topically 2 times daily to rash on hands and feet -Steroid Education Provided To Patient: -Avoid applying topical steroid medication to face, eyes, intertriginous areas -Side effects could be skin thinning, infection, stretch crowell, glaucoma -You may moisturize skin before or after applying the topical steroid High risk medication use D/C Humira at this time until respiratory symptoms are diagnosed and treated All questions have been answered, potential side effects of medications discussed. Most recent labs, pathology reports, relevant notes form other providers were reviewed with patient Pt advised to contact me over [place] or call office at [phone] if unable to get your medications and with questions or concerns. Return to clinic in 3 months or sooner if needed 07/20/2023, 9:10 PM. Shira Grady DO ------ SCRIBE ATTESTATION ----- 07/20/2023, 9:10 PM This note is prepared by Rinuk Lozano acting as Scribe for Dr. Shira Grady DO. All medical record entries made by the Scribe were at my direction and personally dictated by me. I have reviewed the record and confirm that the note above accurately reflects all work, treatment, procedures, and medical decision making performed by meShira DO. documented in this encounter [facility] 07-13-2023 Miscellaneous Notes Called pt to let her know that she needs an follow up appointment per Dr. Grady. Pt states she is uncomfortable coming in for a visit and [facility] is the closest location for her. Pt wanting virtual appointment. Advised pt that I will reach out to provider to see if it is okay for a virtual appointment. Pt verbalized understanding. April Galo RN July 13, 2023 Pt calling, requesting to speak with Dr. Bright. Pt states she hadn't taken the Adalimumab (Humira Pen) 40 MG/0.4ML PNKT for over two months, but starting taking it again two weeks ago. Requesting a call to advise on how often this med should be taken and if she should take it when having no symptoms. Please contact. Thanks! documented in this encounter [facility] 07-13-2023 Telephone encounter Note Called pt to let her know that she needs an follow up appointment per Dr. Grady. Pt states she is uncomfortable coming in for a visit and [facility] is the closest location for her. Pt wanting virtual appointment. Advised pt that I will reach out to provider to see if it is okay for a virtual appointment. Pt verbalized understanding. April Galo RN July 13, 2023 [facility] 07-10-2023 Telephone encounter Note Pt calling, requesting to speak with Dr. Bright. Pt states she hadn't taken the Adalimumab (Humira Pen) 40 MG/0.4ML PNKT for over two months, but starting taking it again two weeks ago. Requesting a call to advise on how often this med should be taken and if she should take it when having no symptoms. Please contact. Thanks! [facility] 04-08-2023 Telephone encounter Note Most recent visit in Dermatology was on 11/12/2022 with Regina Bright MD No future appointments in Dermatology CBC (last 3 years, up to 5 values) WBC RBC Hgb Hct MCV RDW Plt 11/12/224 4.5 4.44 13.1 39.3 89 12.9 254 Basic Metabolic Panel Na K Cl CO2 Gap Glu BUN Cr Ca 12/22/22 1317 143 4.2 105 28 14 85 22 0.86 9.8 11/12/22 1924 139 4.4 Comment: Hemolysis present 104 27 12 90 21 0.92 9.2 LFT's (last 3 years, up to 5 values) [facility] 04-08-2023 Telephone encounter Note Most recent visit in Dermatology was on 11/12/2022 with Regina Bright MD [facility] [employer] Work Phone: 04-08-2023 Miscellaneous Notes Most recent visit in Dermatology was on 11/12/2022 with Regina Bright MD No future appointments in Dermatology CBC (last 3 years, up to 5 values) WBC RBC Hgb Hct MCV RDW Plt 11/12/221923 4.5 4.44 13.1 39.3 89 12.9 254 Basic Metabolic Panel Na K Cl CO2 Gap Glu BUN Cr Ca 12/22/22 1317 143 4.2 105 28 14 85 22 0.86 9.8 11/12/221923 139 4.4 Comment: Hemolysis present 104 27 12 90 21 0.92 9.2 LFT's (last 3 years, up to 5 values) None Most recent visit in Dermatology was on 11/12/2022 with Regina Bright MD [facility] - Order Request for future fills. Requested Prescriptions Pending Prescriptions Disp Refills Adalimumab (Humira Pen) 40 MG/0.4ML PNKT 2 Each 3 Sig: Inject 40 mg under the skin every 14 days. This order will be electronically sent to [facility] Most recent visit in Dermatology was on 11/12/2022 with Regina Bright MD No future appointments in Dermatology CBC (last 3 years, up to 5 values) WBC RBC Hgb Hct MCV RDW Plt 11/12/221923 4.5 4.44 13.1 39.3 89 12.9 254 Basic Metabolic Panel Na K Cl CO2 Gap Glu BUN Cr Ca 12/22/22 1317 143 4.2 105 28 14 85 22 0.86 9.8 11/12/221923 139 4.4 Comment: Hemolysis present 104 27 12 90 21 0.92 9.2 LFT's (last 3 years, up to 5 values) None No records found for TST-PPD, intradermal (PPD) (CVX=96) No prior visit found with PCP (LEOPOLDO WOODS) No future appointment with PCP (LEOPOLDO WOODS) Pharmacy related questions may be directed to: [phone] (MEDS) option 3 Thank you, Ronit Zapata CPhT [facility] [phone] (MEDS) option 3 documented in this encounter [facility] 04-08-2023 Telephone encounter Note [facility] - Order Request for future fills. Requested Prescriptions Pending Prescriptions Disp Refills Adalimumab (Humira Pen) 40 MG/0.4ML PNKT 2 Each 3 Sig: Inject 40 mg under the skin every 14 days. This order will be electronically sent to [facility] Most recent visit in Dermatology was on 11/12/2022 with Regina Bright MD No future appointments in Dermatology CBC (last 3 years, up to 5 values) WBC RBC Hgb Hct MCV RDW Plt 11/12/22 1924 4.5 4.44 13.1 39.3 89 12.9 254 Basic Metabolic Panel Na K Cl CO2 Gap Glu BUN Cr Ca 12/22/22 1317 143 4.2 105 28 14 85 22 0.86 9.8 11/12/22 1924 139 4.4 Comment: Hemolysis present 104 27 12 90 21 0.92 9.2 LFT's (last 3 years, up to 5 values) None No records found for TST-PPD, intradermal (PPD) (CVX=96) No prior visit found with PCP (LEOPOLDO WOODS) No future appointment with PCP (LEOPOLDO WOODS) Pharmacy related questions may be directed to: [phone] (MEDS) option 3 Thank you, Ronit Zapata CPhT [facility] [phone] (MEDS) option 3 [facility] 02-19-2023 History of Present illness Narrative Images from the original note were not included. [facility] - Prior Auth Approved- PHARMACY BENEFIT 02/19/23 1305 Specialty Med Prior Auth Info - Primary Specialty Med PA Outcome Approval received Payor Approval Rx Benefit Insurance Payor [employer] PA Number [id number] Effective Start Date 02/19/23 Effective End Date 08/21/23 How was approval recieved? Alanis workneri CRUZ Notes New Insurance Specialty Prior Auth Medication Details - Primary Medication(s) Humira 40 mg/0.4ml Pen Authorized Quantity 0.4 Unit of Measure mL Is Approval [facility] Specific? N The pharmacy will contact patient Heather Johns and update her on the approval status. Pharmacy to contact patient regarding next step for medication fill. Encounter to be routed to appropriate cost recovery technician/pharmacist for medication fill outreach. Patient questions may be directed to: [phone] option 3 Thank you, Maya Andrews CPhT 02/18/2023 [facility] - Prior Auth Submitted- PHARMACY BENEFIT Medication and dosing: Humira 40 mg/0.4ml pen - Inject 40 mg under the skin every 10 days Insurance has been verified to be: [facility] [employer] submitted on date: 02.18.2023 Method submitted: alanis Acosta: [id number] Pharmacy will addend this encounter with response from plan. Thank you, Maya Andrews CPhT Images from the original note were not included. 02/11/2023 - Ronit patient has a new insurance plan Images from the original note were not included. 07/02/2022 [facility] - Prior Auth Approved Medication and dosing: Humira 40 mg/0.4ml Pen - Inject 40 mg under the skin every 10 days Insurance: [employer] Prescriber: Gavi Nixon prior authorization has been approved beginning date 04/02/2022 until end date 07/02/2023. ( ) The pharmacy will contact patient Heather Johns and update her on the approval status. Pharmacy to contact patient regarding next step for medication fill. Encounter to be routed to appropriate cost recovery technician/pharmacist for medication fill outreach. Patient questions may be directed to: [phone] option 3 Thank you, Maya Andrews CPhT 06/21/2022 [facility]ARMACY REFERRAL (Department: Dermatology) Received request to process prior authorization RENEWAL for HUMIRA for this patient: (Current prior authorization will 07/05/22.) Patient Information: Heather Johns 1975 [address] [facility] [address] Insurance on file: ALBER ID: [id number] BIN: [id number] PCN: MEDDPRIME Group: [id number] Insurance on file: [place] ID: [id number] BIN: [id number] PCN: IS Group: WM2A Allergies Allergen Reactions Morphine Confusion Naproxen Upset Stomach Penicillins Rash Toradol [Ketorolac Tromethamine] Vomiting Tramadol Upset Stomach Specialty Medication Assessment: Med/Sig: Humira 40mg/0.4ml Pens Inject 40mg Sub-Q every 10 days Provider: Karlee Sanchez Indication: Psoriasis (ICD-10 code L40.9) Prior Treatment: - Humira - calcipotriene - clobetasol - Dovonex - Taclonex Injection experience Yes Training required? Not at this time Current Medications Current Outpatient Medications on File Prior to Visit Medication Sig Dispense Refill Adalimumab 40 MG/0.4ML PNKT INJECT 40 MG INTO THE SKIN EVERY 10 (TEN) DAYS 2 Each 2 adalimumab (Humira) 40 MG/0.8ML PSKT injection Inject 0.8 mL into the skin every 10 (ten) days 3 Each 5 Adalimumab (Humira Pen) 40 MG/0.4ML PNKT Inject 40 mg into the skin every 10 (ten) days 1 Each 7 Adalimumab 40 MG/0.4ML PNKT Inject 40 mg under the skin every 10 days. Dispense Citrate-free formulation. Patient needs to follow up for further refills 2 Each 1 naloxone 4 MG/0.1ML LIQD nasal liquid Instill 0.1 mL into one nostril (alternate sides) as needed for Other (Drug overdose, give and call 911) for up to 1 dose Indications: Opioid Overdose. 1 Each 1 eucerin (DERMACERIN) cream Apply topically as needed. Apply thin layer to affected area. 1 Tube 1 triamcinolone 0.1 % cream Apply topically 2 times daily. Apply thin layer to affected area. 30 g 0 omeprazole (PRILOSEC) 40 MG capsule Take 1 Capsule by mouth daily. 60 Capsule 3 sodium chloride (OCEAN NASAL SPRAY) 0.65 % nasal spray Instill 4 Sprays into each nostril 4 times daily. 2 Bottle 3 amitriptyline (ELAVIL) 25 MG tablet Take 1 Tablet by mouth at bedtime. 30 Tablet 0 Linaclotide 145 MCG CAPS capsule Take 1 Capsule by mouth daily. 30 Capsule 3 calcipotriene (DOVONOX) 0.005 % ointment Apply topically 2 times daily. Apply thin layer to affected area. 60 g 3 clobetasol (TEMOVATE) 0.05 % cream Apply topically 2 times daily. For rash on hands and feet 60 g 1 albuterol (PROVENTIL HFA) inhaler 90 mcg/inh Inhale 2 Puffs. fluticasone (FLOVENT HFA) 110 MCG/ACT inhaler Inhale 2 Puffs. atorvastatin (LIPITOR) 20 MG tablet Take 20 mg by mouth daily. sertraline (ZOLOFT) 25 MG tablet Take 150 mg by mouth daily. lamotrigine (LAMICTAL) 100 MG tablet Take 100 mg by mouth daily. No current facility-administered medications on file prior to visit. [facility] Medical History Past Medical History: Diagnosis Date Anxiety Asthma Depression GERD (gastroesophageal reflux disease) HLD (hyperlipidemia) Hyperthyroidism Manic behavior (HCC) GARY (obstructive sleep apnea) PONV (postoperative nausea and vomiting) Labs Hepatitis B Surface Antigen (no units) Date Value 02/28/2019 Non-Reactive Creatinine (mg/dL) Date Value 11/02/2018 0.81 Estimated GFR (CKD-EPI) (mL/min/1.73sqm) Date Value 11/02/2018 89 Alkaline Phosphatase (IU/L) Date Value 06/24/2017 79 ALT (SGPT) (IU/L) Date Value 06/24/2017 20 AST (SGOT) (IU/L) Date Value 06/24/2017 14 TB (Cell Mediated) (no units) Date Value 02/28/2019 Negative TB Antigen 1 (IU/mL) Date Value 02/28/2019 <0.35 TB Antigen 2 (IU/mL) Date Value 02/28/2019 <0.35 Supporting Clinical Information: Per chart notes: 05/20/21 HPI: Heather Johns is a 45 year old female who was last seen in dermatology on 2019 for psoriasis, started on Humira. Today, [facility] presents for follow up. 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 Has been on Humira every 10 days as prescribed by PCP with good response until recently. No missed dosages. No new or worsening joint pains. No changes to medical status. Pt has not used topicals in years. Assessment & Plan: 1. Palmoplantar psoriasis, mild flare - Discussed likely diagnosis and treatment options - Can continue Humira every 10 days as prescribed by PCP, will check TB today as patient is due - Start taclonex BID to affected areas, proper usage and risk discussed - Will follow up in 3 months, if no improvement may need to consider switching biologic agent. Pt also due to FBSE Return to clinic in 3 months Patient to return sooner if worsening or if changes arise. The patient was given an opportunity to ask questions at the conclusion of the visit. Patient instructions and follow up were reviewed together. Patient was seen and discussed with Dr. Romero. Barriers to treatment: prior authorization required PLAN: - Will submit to insurance for HUMIRA prior authorization renewal - Will communicate updates on prior authorization process in this note. - Medication reconciliation completed at last office visit. Medications are accurate as listed in chart. Joseph Alfredo [facility] [phone] option 3 documented in this encounter [facility] 02-19-2023 History of Present illness Narrative Images from the original note were not included. [facility]Y - Prior Auth Approved- PHARMACY BENEFIT 02/19/23 3564 Specialty Med Prior Auth Info - Primary Specialty Med PA Outcome Approval received Payor Approval Rx Benefit Insurance Payor [employer] PA Number [id number] Effective Start Date 03/23/23 Effective End Date 08/21/23 How was approval recieved? Alanis CRUZ Notes New Insurance Specialty Prior Auth Medication Details - Primary Medication(s) Humira 40 mg/0.4ml Pen Authorized Quantity 0.4 Unit of Measure mL Is Approval [facility] Specific? N The pharmacy will contact patient Heather Johns and update her on the approval status. Pharmacy to contact patient regarding next step for medication fill. Encounter to be routed to appropriate cost recovery technician/pharmacist for medication fill outreach. Patient questions may be directed to: [phone] option 3 Thank you, Maya Andrews CPhT 02/18/2023 [facility]ARM[facility]Y - Prior Auth Submitted- PHARMACY BENEFIT Medication and dosing: Humira 40 mg/0.4ml pen - Inject 40 mg under the skin every 10 days Insurance has been verified to be: [facility] PA submitted on date: 02.18.2023 Method submitted: alanis Acosta: [id number] Pharmacy will addend this encounter with response from plan. Thank you, Maya Andrews CPhT Images from the original note were not included. 02/11/2023 - Ronit patient has a new insurance plan Images from the original note were not included. 07/02/2022 [facility]Y - Prior Auth Approved Medication and dosing: Humira 40 mg/0.4ml Pen - Inject 40 mg under the skin every 10 days Insurance: [employer] Prescriber: Gavi Nixon prior authorization has been approved beginning date 04/02/2022 until end date 07/02/2023. ( ) The pharmacy will contact patient Heather Johns and update her on the approval status. Pharmacy to contact patient regarding next step for medication fill. Encounter to be routed to appropriate cost recovery technician/pharmacist for medication fill outreach. Patient questions may be directed to: [phone] option 3 Thank you, Maya Andrews CPhT 06/21/2022 SPECIALTY PHARMACY REFERRAL (Department: Dermatology) Received request to process prior authorization RENEWAL for HUMIRA for this patient: (Current prior authorization will 07/05/22.) Patient Information: Heather Johns 1975 [address] [facility] [address] Insurance on file: ALBER ID: [id number] BIN: [id number] PCN: [employer]DPRIME Group: [id number] Insurance on file: [place] ID: [id number] BIN: [id number] PCN: IS Group: WM2A Allergies Allergen Reactions Morphine Confusion Naproxen Upset Stomach Penicillins Rash Toradol [Ketorolac Tromethamine] Vomiting Tramadol Upset Stomach Specialty Medication Assessment: Med/Sig: Humira 40mg/0.4ml Pens Inject 40mg Sub-Q every 10 days Provider: Karlee Sanchez Indication: Psoriasis (ICD-10 code L40.9) Prior Treatment: - Humira - calcipotriene - clobetasol - Dovonex - Taclonex Injection experience Yes Training required? Not at this time Current Medications Current Outpatient Medications on File Prior to Visit Medication Sig Dispense Refill Adalimumab 40 MG/0.4ML PNKT INJECT 40 MG INTO THE SKIN EVERY 10 (TEN) DAYS 2 Each 2 adalimumab (Humira) 40 MG/0.8ML PSKT injection Inject 0.8 mL into the skin every 10 (ten) days 3 Each 5 Adalimumab (Humira Pen) 40 MG/0.4ML PNKT Inject 40 mg into the skin every 10 (ten) days 1 Each 7 Adalimumab 40 MG/0.4ML PNKT Inject 40 mg under the skin every 10 days. Dispense Citrate-free formulation. Patient needs to follow up for further refills 2 Each 1 naloxone 4 MG/0.1ML LIQD nasal liquid Instill 0.1 mL into one nostril (alternate sides) as needed for Other (Drug overdose, give and call 911) for up to 1 dose Indications: Opioid Overdose. 1 Each 1 eucerin (DERMACERIN) cream Apply topically as needed. Apply thin layer to affected area. 1 Tube 1 triamcinolone 0.1 % cream Apply topically 2 times daily. Apply thin layer to affected area. 30 g 0 omeprazole (PRILOSEC) 40 MG capsule Take 1 Capsule by mouth daily. 60 Capsule 3 sodium chloride (OCEAN NASAL SPRAY) 0.65 % nasal spray Instill 4 Sprays into each nostril 4 times daily. 2 Bottle 3 amitriptyline (ELAVIL) 25 MG tablet Take 1 Tablet by mouth at bedtime. 30 Tablet 0 Linaclotide 145 MCG CAPS capsule Take 1 Capsule by mouth daily. 30 Capsule 3 calcipotriene (DOVONOX) 0.005 % ointment Apply topically 2 times daily. Apply thin layer to affected area. 60 g 3 clobetasol (TEMOVATE) 0.05 % cream Apply topically 2 times daily. For rash on hands and feet 60 g 1 albuterol (PROVENTIL HFA) inhaler 90 mcg/inh Inhale 2 Puffs. fluticasone (FLOVENT HFA) 110 MCG/ACT inhaler Inhale 2 Puffs. atorvastatin (LIPITOR) 20 MG tablet Take 20 mg by mouth daily. sertraline (ZOLOFT) 25 MG tablet Take 150 mg by mouth daily. lamotrigine (LAMICTAL) 100 MG tablet Take 100 mg by mouth daily. No current facility-administered medications on file prior to visit. [facility] Medical History Past Medical History: Diagnosis Date Anxiety Asthma Depression GERD (gastroesophageal reflux disease) HLD (hyperlipidemia) Hyperthyroidism Manic behavior (HCC) GARY (obstructive sleep apnea) PONV (postoperative nausea and vomiting) Labs Hepatitis B Surface Antigen (no units) Date Value 02/28/2019 Non-Reactive Creatinine (mg/dL) Date Value 11/02/2018 0.81 Estimated GFR (CKD-EPI) (mL/min/1.73sqm) Date Value 11/02/2018 89 Alkaline Phosphatase (IU/L) Date Value 06/24/2017 79 ALT (SGPT) (IU/L) Date Value 06/24/2017 20 AST (SGOT) (IU/L) Date Value 06/24/2017 14 TB (Cell Mediated) (no units) Date Value 02/28/2019 Negative TB Antigen 1 (IU/mL) Date Value 02/28/2019 <0.35 TB Antigen 2 (IU/mL) Date Value 02/28/2019 <0.35 Supporting Clinical Information: Per chart notes: 05/20/21 HPI: Heather Johns is a 45 year old female who was last seen in dermatology on 2018 for psoriasis, started on Humira. Today, [facility] presents for follow up. 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 Has been on Humira every 10 days as prescribed by PCP with good response until recently. No missed dosages. No new or worsening joint pains. No changes to medical status. Pt has not used topicals in years. Assessment & Plan: 1. Palmoplantar psoriasis, mild flare - Discussed likely diagnosis and treatment options - Can continue Humira every 10 days as prescribed by PCP, will check TB today as patient is due - Start taclonex BID to affected areas, proper usage and risk discussed - Will follow up in 3 months, if no improvement may need to consider switching biologic agent. Pt also due to FBSE Return to clinic in 3 months Patient to return sooner if worsening or if changes arise. The patient was given an opportunity to ask questions at the conclusion of the visit. Patient instructions and follow up were reviewed together. Patient was seen and discussed with Dr. Romero. Barriers to treatment: prior authorization required PLAN: - Will submit to insurance for HUMIRA prior authorization renewal - Will communicate updates on prior authorization process in this note. - Medication reconciliation completed at last office visit. Medications are accurate as listed in chart. Joseph Alfredo ming [facility] [phone] option 3 documented in this encounter [facility] 02-19-2023 Note 06/21/2022 SPECIALTY PHARMACY REFERRAL (Department: Dermatology) Received request to process prior authorization RENEWAL for HUMIRA for this patient: (Current prior authorization will 07/05/22.) Patient Information: Heather Johns 1975 [address] [facility] [address] Insurance on file: ALBER ID: [id number] BIN: [id number] PCN: MEDDPRIIN Group: [id number] Insurance on file: [employer] ID: [id number] BIN: [id number] PCN: IS Group: [id number] Allergies Allergen Reactions Morphine Confusion Naproxen Upset Stomach Penicillins Rash Toradol [Ketorolac Tromethamine] Vomiting Tramadol Upset Stomach Specialty Medication Assessment: Med/Sig: Humira 40mg/0.4ml Pens Inject 40mg Sub-Q every 10 days Provider: Karlee Sanchez Indication: Psoriasis (ICD-10 code L40.9) Prior Treatment: - Humira - calcipotriene - clobetasol - Dovonex - Taclonex Injection experience Yes Training required? Not at this time Current Medications Current Outpatient Medications on File Prior to Visit Medication Sig Dispense Refill Adalimumab 40 MG/0.4ML PNKT INJECT 40 MG INTO THE SKIN EVERY 10 (TEN) DAYS 2 Each 2 adalimumab (Humira) 40 MG/0.8ML PSKT injection Inject 0.8 mL into the skin every 10 (ten) days 3 Each 5 Adalimumab (Humira Pen) 40 MG/0.4ML PNKT Inject 40 mg into the skin every 10 (ten) days 1 Each 7 Adalimumab 40 MG/0.4ML PNKT Inject 40 mg under the skin every 10 days. Dispense Citrate-free formulation. Patient needs to follow up for further refills 2 Each 1 naloxone 4 MG/0.1ML LIQD nasal liquid Instill 0.1 mL into one nostril (alternate sides) as needed for Other (Drug overdose, give and call 911) for up to 1 dose Indications: Opioid Overdose. 1 Each 1 eucerin (DERMACERIN) cream Apply topically as needed. Apply thin layer to affected area. 1 Tube 1 triamcinolone 0.1 % cream Apply topically 2 times daily. Apply thin layer to affected area. 30 g 0 omeprazole (PRILOSEC) 40 MG capsule Take 1 Capsule by mouth daily. 60 Capsule 3 sodium chloride (OCEAN NASAL SPRAY) 0.65 % nasal spray Instill 4 Sprays into each nostril 4 times daily. 2 Bottle 3 amitriptyline (ELAVIL) 25 MG tablet Take 1 Tablet by mouth at bedtime. 30 Tablet 0 Linaclotide 145 MCG CAPS capsule Take 1 Capsule by mouth daily. 30 Capsule 3 calcipotriene (DOVONOX) 0.005 % ointment Apply topically 2 times daily. Apply thin layer to affected area. 60 g 3 clobetasol (TEMOVATE) 0.05 % cream Apply topically 2 times daily. For rash on hands and feet 60 g 1 albuterol (PROVENTIL HFA) inhaler 90 mcg/inh Inhale 2 Puffs. fluticasone (FLOVENT HFA) 110 MCG/ACT inhaler Inhale 2 Puffs. atorvastatin (LIPITOR) 20 MG tablet Take 20 mg by mouth daily. sertraline (ZOLOFT) 25 MG tablet Take 150 mg by mouth daily. lamotrigine (LAMICTAL) 100 MG tablet Take 100 mg by mouth daily. No current facility-administered medications on file prior to visit. [facility] Medical History Past Medical History: Diagnosis Date Anxiety Asthma Depression GERD (gastroesophageal reflux disease) HLD (hyperlipidemia) Hyperthyroidism Manic behavior (HCC) GARY (obstructive sleep apnea) PONV (postoperative nausea and vomiting) Labs Hepatitis B Surface Antigen (no units) Date Value 02/28/2019 Non-Reactive Creatinine (mg/dL) Date Value 11/02/2018 0.81 Estimated GFR (CKD-EPI) (mL/min/1.73sqm) Date Value 11/02/2018 89 Alkaline Phosphatase (IU/L) Date Value 06/24/2017 79 ALT (SGPT) (IU/L) Date Value 06/24/2017 20 AST (SGOT) (IU/L) Date Value 06/24/2017 14 TB (Cell Mediated) (no units) Date Value 02/28/2019 Negative TB Antigen 1 (IU/mL) Date Value 02/28/2019 <0.35 TB Antigen 2 (IU/mL) Date Value 02/28/2019 <0.35 Supporting Clinical Information: Per chart notes: 05/20/21 HPI: Heather Johns is a 45 year old female who was last seen in dermatology on 2019 for psoriasis, started on Humira. Today, [facility] presents for follow up. 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 Has been on Humira every 10 days as prescribed by PCP with good response until recently. No missed dosages. No new or worsening joint pains. No changes to medical status. Pt has not used topicals in years. Assessment AND Plan: 1. Palmoplantar psoriasis, mild flare - Discussed likely diagnosis and treatment options - Can continue Humira every 10 days as prescribed by PCP, will check TB today as patient is due - Start taclonex BID to affected areas, proper usage and risk discussed - Will follow up in 3 months, if no improvement may need to consider switching biologic agent. Pt also due to FBSE Return to clinic in 3 months Patient to return sooner if worsening or if changes arise. The patient was given an opportunity to ask questions at the conclusion of the visit. Patient instructions and follow up were reviewed together. Patient was seen and discussed with Dr. Romero. Cornel (more content not included)... [facility] 02-18-2023 History of Present illness Narrative SPECIALTY PHARMACY - Prior Auth Submitted- PHARMACY BENEFIT Medication and dosing: Humira 40 mg/0.4ml pen - Inject 40 mg under the skin every 10 days Insurance has been verified to be: [facility] [place] submitted on date: 02.18.2023 Method submitted: [facility] [place]: [id number] Pharmacy will addend this encounter with response from plan. Thank you, Maya Andrews CPhT Specialty Pharmacy Follow Up Clinical Assessment Medication: Humira Indication for treatment (ICD-10): Psoriasis (ICD-10 code L40.9) Specialty medication has been reviewed for appropriate use, dose, route, frequency and duration. Concomitant therapy: No change Acute infection status: No active infections none reported Labs: Hepatitis B Surface Antigen (no units) Date Value 02/28/2019 Non-Reactive Creatinine (mg/dL) Date Value 12/22/2022 0.86 Estimated GFR (CKD-EPI) (mL/min/1.73sqm) Date Value 12/22/2022 84 Alkaline Phosphatase (IU/L) Date Value 06/24/2017 79 ALT (SGPT) (IU/L) Date Value 06/24/2017 20 AST (SGOT) (IU/L) Date Value 06/24/2017 14 TB (Cell Mediated) (no units) Date Value 12/22/2022 Negative TB Antigen 1 (IU/mL) Date Value 12/22/2022 <0.35 TB Antigen 2 (IU/mL) Date Value 12/22/2022 <0.35 Patient Reported Outcomes: Specialty Pharmacy Follow up Care Plan 01/20/2023 12/23/2022 11/28/2022 Care Plan Confidence Level 10 - - Have you missed a dose of your specialty medication(s) in the last 4 weeks? No No No Any unplanned office visit, urgent care, ED, or hospital admission in the last 4 weeks? No - - In regards to your condition, how are you feeling compared to the last time we spoke/texted? Better - - How would you rate your pain on average? (0 = no pain, 10 = worst pain imaginable) 0 - - In the past 4 weeks have you missed any days from work, school or planned activities due to your diagnosis? No - - Are you experiencing any side effects? No - - In general, would you say your quality of life is: Good - - Are you willing to answer two brief questions about your mood? No - - Describe worst itching 2 - - ____ Patient is achieving therapeutic benefit. Therapy is appropriate to continue. Specialty pharmacy to reassess patient's treatment at appropriate intervals to determine if patient is benefiting and should continue therapy. Plan of care including goals of therapy will continue to be evaluated at least annually. Thank you, Joseph Alfredo, NubiaD, [facility] [phone], Option #3 documented in this encounter [facility] 01-30-2023 History of Present illness Narrative Specialty Pharmacy Follow Up Clinical Assessment Medication: Humira Indication for treatment (ICD-10): Psoriasis (ICD-10 code L40.9) Specialty medication has been reviewed for appropriate use, dose, route, frequency and duration. Concomitant therapy: No change Acute infection status: No active infections none reported Labs: Hepatitis B Surface Antigen (no units) Date Value 02/28/2019 Non-Reactive Creatinine (mg/dL) Date Value 12/22/2022 0.86 Estimated GFR (CKD-EPI) (mL/min/1.73sqm) Date Value 12/22/2022 84 Alkaline Phosphatase (IU/L) Date Value 06/24/2017 79 ALT (SGPT) (IU/L) Date Value 06/24/2017 20 AST (SGOT) (IU/L) Date Value 06/24/2017 14 TB (Cell Mediated) (no units) Date Value 12/22/2022 Negative TB Antigen 1 (IU/mL) Date Value 12/22/2022 <0.35 TB Antigen 2 (IU/mL) Date Value 12/22/2022 <0.35 Patient Reported Outcomes: Specialty Pharmacy Follow up Care Plan 01/20/2023 12/23/2022 11/28/2022 Care Plan Confidence Level 10 - - Have you missed a dose of your specialty medication(s) in the last 4 weeks? No No No Any unplanned office visit, urgent care, ED, or hospital admission in the last 4 weeks? No - - In regards to your condition, how are you feeling compared to the last time we spoke/texted? Better - - How would you rate your pain on average? (0 = no pain, 10 = worst pain imaginable) 0 - - In the past 4 weeks have you missed any days from work, school or planned activities due to your diagnosis? No - - Are you experiencing any side effects? No - - In general, would you say your quality of life is: Good - - Are you willing to answer two brief questions about your mood? No - - Describe worst itching 2 - - ____ Patient is achieving therapeutic benefit. Therapy is appropriate to continue. Specialty pharmacy to reassess patient's treatment at appropriate intervals to determine if patient is benefiting and should continue therapy. Plan of care including goals of therapy will continue to be evaluated at least annually. Thank you, Joseph Alfredo, PharmD, [facility] [phone], Option #3 documented in this encounter [facility] 12-18-2022 Telephone encounter Note Most recent visit in Dermatology was on 11/12/2022 with Regina Bright MD No future appointments in Dermatology CBC (last 3 years, up to 5 values) WBC RBC Hgb Hct MCV RDW Plt 11/12/221923 4.5 4.44 13.1 39.3 89 12.9 254 Basic Metabolic Panel Na K Cl CO2 Gap Glu BUN Cr Ca 11/12/221923 139 4.4 Comment: Hemolysis present 104 27 12 90 21 0.92 9.2 LFT's (last 3 years, up to 5 values) None [facility] Work Phone: 12-18-2022 Miscellaneous Notes Most recent visit in Dermatology was on 11/12/2022 with Regina Bright MD No future appointments in Dermatology CBC (last 3 years, up to 5 values) WBC RBC Hgb Hct MCV RDW Plt 11/12/221923 4.5 4.44 13.1 39.3 89 12.9 254 Basic Metabolic Panel Na K Cl CO2 Gap Glu BUN Cr Ca 11/12/221923 139 4.4 Comment: Hemolysis present 104 27 12 90 21 0.92 9.2 LFT's (last 3 years, up to 5 values) None SPECIALTY PHARMACY - Order Request for future fills. Requested Prescriptions Pending Prescriptions Disp Refills Adalimumab (Humira Pen) 40 MG/0.4ML PNKT 2 Each 3 Sig: Inject 40 mg under the skin every 14 days. This order will be electronically sent to [facility] Most recent visit in Dermatology was on 11/12/2022 with Regina Bright MD No future appointments in Dermatology CBC (last 3 years, up to 5 values) WBC RBC Hgb Hct MCV RDW Plt 11/12/224 4.5 4.44 13.1 39.3 89 12.9 254 Basic Metabolic Panel Na K Cl CO2 Gap Glu BUN Cr Ca 11/12/224 139 4.4 Comment: Hemolysis present 104 27 12 90 21 0.92 9.2 LFT's (last 3 years, up to 5 values) None No records found for TST-PPD, intradermal (PPD) (CVX=96) No prior visit found with PCP (LEOPOLDO WOODS) No future appointment with PCP (LEOPOLDO WOODS) Pharmacy related questions may be directed to: [phone] (MEDS) option 3 Thank you, Ronit Zapata [facility] [phone] (MEDS) option 3 documented in this encounter [facility] 12-17-2022 Telephone encounter Note SPECIALTY PHARMACY - Order Request for future fills. Requested Prescriptions Pending Prescriptions Disp Refills Adalimumab (Humira Pen) 40 MG/0.4ML PNKT 2 Each 3 Sig: Inject 40 mg under the skin every 14 days. This order will be electronically sent to [facility] Most recent visit in Dermatology was on 11/12/2022 with Regina Bright MD No future appointments in Dermatology CBC (last 3 years, up to 5 values) WBC RBC Hgb Hct MCV RDW Plt 11/12/224 4.5 4.44 13.1 39.3 89 12.9 254 Basic Metabolic Panel Na K Cl CO2 Gap Glu BUN Cr Ca 11/12/224 139 4.4 Comment: Hemolysis present 104 27 12 90 21 0.92 9.2 LFT's (last 3 years, up to 5 values) None No records found for TST-PPD, intradermal (PPD) (CVX=96) No prior visit found with PCP (LEOPOLDO WOODS) No future appointment with PCP (LEOPOLDO WOODS) Pharmacy related questions may be directed to: [phone] (MEDS) option 3 Thank you, Ronit Zapata [facility] [phone] (MEDS) option 3 [facility] 12-05-2022 Instructions Mason Walls MD - 12/05/2022 11:32 AM EST Eat small meals 5-6 times per day, no grease, no oil, low fat. GERD lifestyle modifications recommended including: - Maintain upright posture during and after eating. - Avoid clothing that is tight in the abdominal area. - Avoid eating within 3 hours before bedtime. - Sleep on your left side. - Elevate the head of your bed 4-6 inches - Keep a healthy weight 1) Check labs 2) High fiber diet. Eat small meals. 3) Continue Linzess daily which was recently prescribed, 145 mcg daily. 4) Gastric emptying study. documented in this encounter [facility] 12-05-2022 History of Present illness Narrative Gastroenterology Clinic Visit PATIENT, SELF No address on file Attending Physician: Dr. Mariusz Kruger MD PCP: Leopoldo Woods, DAVID-RACHEL Heather Johns is a 47 year old year old female whom we are consulted to see regarding new onset feeling of fullness. She has a history of chronic poor appetite, GERD, post-prandial nausea, bloating, early satiety and epigastric burning pains on previous GI encounter. Today she has bloating, and epigastric burning pain. This is worsened with everything and really was noticeable starting about 10 days ago. States she has heartburn for about 7 days. She states it xavier badly for past 7 days. Rarely suffers from constipation. She has been dulcolax one time in last 6 months. She went to the primary care physician who increased her PPI to twice daily, and She started Linzess yesterday. Is on Humira for psoriasis. Bowel movements every 1-2 days. There is no straining right now, but she does think she may have hemorrhoids. There is no blood per rectum. Social history: Does not smoke cigarettes, does smoke THC 1-2 times per day. Family history: Mom had a stomach tumor Past Medical History: Diagnosis Date Anxiety Asthma Depression GERD (gastroesophageal reflux disease) HLD (hyperlipidemia) Hyperthyroidism Manic behavior (HCC) GARY (obstructive sleep apnea) PONV (postoperative nausea and vomiting) Past Surgical History: Procedure Laterality Date COLONOSCOPY N/A 09/16/2016 Procedure: COLONOSCOPY; Surgeon: Alyx Villela MD; Location: [facility]; Service: Gastroenterology ESOPHAGOGASTRODUODENOSCOPY N/A 04/20/2017 Procedure: ESOPHAGOGASTRODUODENOSCOPY; Surgeon: Caio Donahue MD; Location: [facility]; Service: Gastroenterology SEPTOPLASTY N/A 01/08/2018 Procedure: SEPTOPLASTY, turb reduction; Surgeon: Jhony Soler MD; Location: [facility]; Service: Otolaryngology TONSILLECTOMY Bilateral 01/08/2018 Procedure: adenoidectomy; Surgeon: Jhony Soler MD; Location: [facility]; Service: Otolaryngology No family history on file. Social History Tobacco Use Smoking status: Former Packs/day: 0.25 Years: 34.00 Pack years: 8.50 Types: Cigarettes Smokeless tobacco: Never Substance Use Topics Alcohol use: Yes Comment: socially Drug use: No Allergies Allergies Allergen Reactions Morphine Confusion Naproxen Upset Stomach Penicillins Rash Toradol [Ketorolac Tromethamine] Vomiting Tramadol Upset Stomach Medications Current Outpatient Medications Medication Sig Dispense Refill clobetasol (TEMOVATE) 0.05 % cream Apply topically 2 times daily. For rash on hands and feet 60 g 3 calcipotriene (DOVONOX) 0.005 % ointment Apply topically 2 times daily. Apply thin layer to affected area. 60 g 3 Adalimumab (Humira Pen) 40 MG/0.4ML PNKT Inject 40 mg under the skin every 14 days. 2 Each 3 naloxone 4 MG/0.1ML LIQD nasal liquid Instill 0.1 mL into one nostril (alternate sides) as needed for Other (Drug overdose, give and call 911) for up to 1 dose Indications: Opioid Overdose. 1 Each 1 eucerin (DERMACERIN) cream Apply topically as needed. Apply thin layer to affected area. 1 Tube 1 triamcinolone 0.1 % cream Apply topically 2 times daily. Apply thin layer to affected area. 30 g 0 omeprazole (PRILOSEC) 40 MG capsule Take 1 Capsule by mouth daily. 60 Capsule 3 sodium chloride (OCEAN NASAL SPRAY) 0.65 % nasal spray Instill 4 Sprays into each nostril 4 times daily. 2 Bottle 3 amitriptyline (ELAVIL) 25 MG tablet Take 1 Tablet by mouth at bedtime. 30 Tablet 0 Linaclotide 145 MCG CAPS capsule Take 1 Capsule by mouth daily. 30 Capsule 3 albuterol (PROVENTIL HFA) inhaler 90 mcg/inh Inhale 2 Puffs. fluticasone (FLOVENT HFA) 110 MCG/ACT inhaler Inhale 2 Puffs. atorvastatin (LIPITOR) 20 MG tablet Take 20 mg by mouth daily. sertraline (ZOLOFT) 25 MG tablet Take 150 mg by mouth daily. lamotrigine (LAMICTAL) 100 MG tablet Take 100 mg by mouth daily. No current facility-administered medications for this visit. PHYSICAL EXAMINATION: BP 106/74 Pulse 98 Temp 97.7 F (36.5 C) (Temporal) Wt 173 lb (78.5 kg) BMI 28.79 kg/m BMI was 27.46 kg/sq m on 10/07/2019 (weight 74.8 kg, height 5' 5 ) Gen: NAD HEENT: No scleral icterus, moist mucous membranes Lungs: Clear to auscultation bilaterally CVS: regular rate and rhythm Abd: Soft, nontender, nondistended, +BS, no HSM Ext: No edema Skin: Warm and dry Neuro: No gross episodes Labs: CBC (last 3 years, up to 5 values) WBC RBC Hgb Hct MCV RDW Plt 11/12/221923 4.5 4.44 13.1 39.3 89 12.9 254 Basic Metabolic Panel Na K Cl CO2 Gap Glu BUN Cr Ca 11/12/221923 139 4.4 Comment: Hemolysis present 104 27 12 90 21 0.92 9.2 LFT's (last 3 years, up to 5 values) None EGD 2017 Procedure(s): ESOPHAGOGASTRODUODENOSCOPY MODERATE SEDATION: Oxygen 2L/NC, Demerol 75 mg IV/Versed 3 mg IV Given in divided doses to achieve adequate sedation. Moderate sedation intraservice total time was 7 minutes. Moderate sedation provided by same provider performing the procedure Pre-Op Diagnosis Codes: * Epigastric pain [R10.13] INDICATIONS: This is a 41 year old female Hx of thyroid nodules, eczema, NAFLD. Here for EGG for chronic poor appetite, GERD, post-prandial nausea, bloating, early satiety and epigastric burning pains. H. Pylori breath testing neg 12/2015. TTG neg. On prilosec 40 mg qAM. + intermittent naproxyn. No dysphagia. No hematemesis. Colonoscopy 08/2016 that was normal. Under IV sedation, with monitoring of EKG, pulse oximetry and BP, endoscope passed to second portion of duodenum by direct visualization. DUODENUM: Bulb and descending portion appeared normal. STOMACH: Pyloric channel appeared normal. Gastric antrum with scattered mucosal erythema without erosions or ulceration. Gastric body, fundus and cardia, including retroflexed views appear normal. Minor amount of foodstuff remnant in the stomach. ESOPHAGUS: Diaphragmatic hiatus was 39 cm from incisors and GE junction (upper margin of gastric folds) was at 37 cm from incisors. Squamocolumnar junction was at 37 cm from incisors. Mucosa appeared normal. A 2 cm sliding, type 1, hiatal hernia present. Irregular z-line. Random distal and proximal bx taken to evaluate for EoE - Bottle A. Patient tolerated procedure well. Dysphagia, unspecified type (Primary Diagnosis) [[id number]] Gastroesophageal reflux disease without esophagitis [264609] Early satiety [780.94.ICD-9-CM] MICHELLE PATH SPECIMEN SENT: yes SPECIMEN: Esophagus PHOTOGRAPH TAKEN:yes COMPLICATIONS DURING PROCEDURE: none EBL (estimated blood loss): minimal RECOMMENDATIONS: 1. F/u esophageal biopsies. 2. F/U with PCP. 3. No EtOH or NSAIDs. 4. Gastric emptying study ordered. GERD lifestyle modifications recommended including: - Maintain upright posture during and after eating. - Avoid clothing that is tight in the abdominal area. - Avoid eating within 3 hours before bedtime. - Sleep on your left side. - Elevate the head of your bed 4-6 inches - Keep a healthy weight Aug 2016 FINDINGS: Cecum: Normal. Ascending Colon: Normal. Hepatic Flexure: Normal. Transverse Colon: Normal. Splenic Flexure: Normal. Descending Colon: Normal. Sigmoid Colon: Normal. Rectum: Normal. Retroflexed Views: Rectum did not show internal hemorrhoids. No masses, ulcers, diverticula, polyps or strictures were present. Patient tolerated the procedure well. MICHELLE PATH SPECIMEN SENT: no SPECIMEN: None PHOTOGRAPH TAKEN:yes COMPLICATIONS DURING PROCEDURE: none EBL (estimated blood loss): none RECOMMENDATIONS: 1. Next Colonoscopy 10 years after previous 2. Follow up with PCP. CC: Primary Care/Referring Physician(s): No primary care provider on file. PERSON COMPLETING NOTE: Antwan Woodruff MD 04/20/2017 at 9:10 AM Assessment and Recommendations: In conclusion, Heather Johns is a 47 year old year old female whom we are consulted to see regarding presents with worsening GERD and a feeling of fullness in abdomen with symptoms predominant the last 7 days therefore we will check for gastroparesis and she can continue Linzess in case there is a component of constipation. Previous endoscopy negative for H pylori. First differential diagnosis would be GERD given her previous history in 2017 and her recent acute symptoms. For her heartburn will intensively treated with full-dose PPI twice per day Heartburn, bloating 1) Check A1c, Check thyroid given previous history. 2) High fiber diet. Eat small meals. 3) Continue Linzess daily which was recently prescribed, 145 mcg daily. 4) Gastric emptying study. Return to GI clinic in 4-6 weeks. Patient s/d/w Dr. Mariusz Kruger MD A copy of this note was sent to PCP Leopoldo Woods APRN-RACHEL Walls MD Division of Gastroenterology & Hepatology [facility] Teaching Physician Note I saw and evaluated the patient. I personally obtained the acosta and critical portions of the history and physical exam. I reviewed the fellow's documentation and discussed the patient with the fellow. I agree with the fellow's medical decision making as documented in the fellow's note. Dr. Mariusz Kruger Patient was identified by name and date of . Arielle Tariq Patient at risk for falls:Yes Falls Risk protocol implemented: no documented in this encounter [facility] 11-12-2022 Hospital Discharge instructions Aman Wright PA-C - 11/12/2022 9:17 PM EST Please follow-up with your primary care physician. Take Tylenol Motrin as needed for symptoms. The following attachments cannot be sent through Care Everywhere.Flu Discharge Instructions, Adult (Belarusian)documented in this encounter [facility] 11-12-2022 Physician Emergency department Note Images from the original note were not included. Emergency Department Attending Note HISTORY OF PRESENT ILLNESS No chief complaint on file. not needed - patient preferred language is Belarusian. HIPAA:Verbal permission granted from patient to discuss case, including protected health information, in front of family / friends in room at the time of the ED evaluation. KN95 has been worn for the entirety of this patient encounter. The history is provided by the Patient. Heather Johns is a 47 year old year old female recently diagnosed with influenza today documented history of GERD, IBS, thyroid disease, psoriasis on immunosuppressants, presenting to the ED today with complaints of myalgias throughout her entire body. Additionally patient tells me that she is having some chest pain. Patient notes that she was at an urgent care today because for the last 3 days she has been feeling sick. She notes that they found her to be positive for influenza today. She tells me they sent her to the emergency department because she was complaining of chest tightness. She describes this pain as a tightness in her chest and tells me that she does have some tenderness to touch in her anterior chest. Patient currently denies headache dizziness, shortness of breath difficulty breathing, abdominal pain, vomiting, diarrhea constipation, black or bloody stools. ---- REVIEW OF SYSTEMS ------ Review of Systems Constitutional: Positive for fever, chills and malaise/fatigue. HENT: Positive for congestion. Negative for ear pain, sore throat and neck pain. Eyes: Negative for pain and discharge. Respiratory: Positive for cough. Negative for shortness of breath and wheezing. Cardiovascular: Positive for chest pain. Negative for palpitations and leg swelling. Gastrointestinal: Positive for nausea. Negative for vomiting, abdominal pain, diarrhea, constipation and blood in stool. Genitourinary: Negative for dysuria, urgency and frequency. Musculoskeletal: Positive for myalgias. Negative for back pain. Neurological: Positive for headaches. Negative for dizziness and weakness. Psychiatric/Behavioral: Negative for suicidal ideas and hallucinations. The patient is not nervous/anxious. -------- PAST HISTORY Pertinent Past History: Past Medical History: Diagnosis Date Anxiety Asthma Depression GERD (gastroesophageal reflux disease) HLD (hyperlipidemia) Hyperthyroidism Manic behavior (HCC) GARY (obstructive sleep apnea) PONV (postoperative nausea and vomiting) Patient Active Problem List: Chest pain [R07.9] Depression [F32.A] Indigestion [K30] Gastroesophageal reflux disease [K21.9] Fatty liver [K76.0] History of thyroid disease [Z86.39] Irritable bowel syndrome with constipation [K58.1] Psoriasis [L40.9] GARY (obstructive sleep apnea) [G47.33] Inadequate sleep hygiene [Z72.821] Nose abnormality [Q30.9] Adenoid hypertrophy [J35.2] Hypertrophy of nasal turbinates [J34.3] Deviated nasal septum [J34.2] Lumbosacral radiculopathy [M54.17] Chronic pain syndrome [G89.4] Cervical radicular pain [M54.12] Lumbar radicular pain [M54.16] Therapy [Z51.89] Cervical radiculopathy at C5 [M54.12] Myelopathy (HCC) [G95.9] Herniated lumbar intervertebral disc [M51.26] Lumbar spondylosis [M47.816] Lumbar radiculopathy [M54.16] Herniated disc, cervical [M50.20] Pertinent Family History: No family history on file. Pertinent Social History: Social History Occupational History Not on file Tobacco Use Smoking status: Every Day Packs/day: 0.25 Years: 34.00 Pack years: 8.50 Types: Cigarettes Smokeless tobacco: Never Substance and Sexual Activity Alcohol use: Yes Comment: socially Drug use: No Sexual activity: Yes Partners: Male ------ PHYSICAL EXAM BP 106/68 Pulse (!) 113 Temp 98.2 F (36.8 C) (Oral) Resp 18 SpO2 97% Physical Exam Vitals and nursing note reviewed. Constitutional: General: She is not in acute distress. Appearance: Normal appearance. She is not diaphoretic. HENT: Head: Normocephalic and atraumatic. Nose: Nose normal. Mouth/Throat: Mouth: Mucous membranes are moist. Eyes: Extraocular Movements: Extraocular movements intact. Pupils: Pupils are equal, round, and reactive to light. Cardiovascular: Rate and Rhythm: Tachycardia present. Comments: No murmurs rubs or gallops Pulmonary: Effort: Pulmonary effort is normal. No respiratory distress. Comments: Patient with no increased respiratory effort, satting appropriately on room air, no rales wheezing or rhonchi Abdominal: Comments: Abdomen is soft, nondistended, nontender, no rebound or guarding, bowel sounds equal present throughout. Musculoskeletal: General: Normal range of motion. Cervical back: Normal range of motion and neck supple. Skin: General: Skin is warm and dry. Neurological: Mental Status: She is alert and oriented to person, place, and time. Psychiatric: Mood and Affect: Mood and affect normal. Behavior: Behavior normal. ED COURSE Nursing triage and assessment notes reviewed and incorporated Chart Reviewed: Summary of pertinent elements includes history of chest pain, GERD, psoriasis, Chart Review (including Care Everywhere visits) including pertinent past labs or imaging studies were incorporated into today's ED chart. Imaging Exams: personally reviewed and final read reviewed ED Course as of 11/12/222119Nov 12, 20222113 HS Troponin I: <4 Troponin is negative [LA] ED Course User Index [LA] Aman Wright PA-C I have provided 1 minutes of smoking cessation counseling to this patient including Advising patient on the health risks of smoking. The patient indicated that he/she was not interested in the learning about the health risks of smoking. MDM AND DISPOSITION Discussion and Plan of Emergency Care: Patient is a 47-year-old female into the ED today with complaints of viral syndrome and chest pain. In the ED the patient is well appearing in no acute distress. Her vitals are stable. On exam patient has no concerning findings other than her mild tachycardia. Patient given Tylenol and Zofran for symptomatic relief. Given her complaint, EKG is obtained and unremarkable. Chest x-ray obtained and unremarkable. Cardiac enzymes and other basic labs obtained. Cardiac enzymes are negative. Other labs unremarkable. Urine shows no evidence of infection. Patient will be discharged with viral syndrome. She can use Tylenol Motrin. At this time patient is stable for discharge, patient is to follow-up as directed. Plan was discussed with this patient and her family of present, all are agreeable. All questions and concerns have been addressed here in the ED today. Clinical Impression Diagnosis Comment Influenza A [J10.1] Myalgia [M79.10] New Prescriptions No medications on file Disposition: Disposition: Home Patient Condition: stable The patient has received a medical screening examination and within reasonable clinical confidence an emergency medical condition has not been identified. Counseling: Spoke with the patient and discussed today s findings, in addition to providing specific details for the plan of care and expected course. They were given the opportunity to ask questions. Discussed return precautions and importance of follow-up. Advised to follow-up with primary care. Advised to return to the ED for changing or worsening symptoms, new symptoms, complaint specific precautions, and precautions listed on the discharge paperwork. The plan of care was mutually agreed upon with the patient. The patient and/or family were given the opportunity to ask questions. All questions asked today in the ED were answered to the best of my ability with today's information. I advised the patient that the emergency evaluation and treatment provided today doesn't end their need for care. It is very important that they follow-up with their primary care provider. I asked that the patient return to the ED for any new, changing or worsening symptoms or for any complaint specific precautions listed on the discharge paperwork. This record was transcribed using dictation software. Every effort has been made to provide a clear and accurate record. However, errors can occur. ANTONIO Mesa PA-C [employer] Work Phone: 11-12-2022 Emergency department Note Images from the original note were not included. Emergency Department Attending Note HISTORY OF PRESENT ILLNESS No chief complaint on file. not needed - patient preferred language is Belarusian. HIPAA:Verbal permission granted from patient to discuss case, including protected health information, in front of family / friends in room at the time of the ED evaluation. KN95 has been worn for the entirety of this patient encounter. The history is provided by the Patient. Heather Johns is a 47 year old year old female recently diagnosed with influenza today documented history of GERD, IBS, thyroid disease, psoriasis on immunosuppressants, presenting to the ED today with complaints of myalgias throughout her entire body. Additionally patient tells me that she is having some chest pain. Patient notes that she was at an urgent care today because for the last 3 days she has been feeling sick. She notes that they found her to be positive for influenza today. She tells me they sent her to the emergency department because she was complaining of chest tightness. She describes this pain as a tightness in her chest and tells me that she does have some tenderness to touch in her anterior chest. Patient currently denies headache dizziness, shortness of breath difficulty breathing, abdominal pain, vomiting, diarrhea constipation, black or bloody stools. ---- REVIEW OF SYSTEMS ------ Review of Systems Constitutional: Positive for fever, chills and malaise/fatigue. HENT: Positive for congestion. Negative for ear pain, sore throat and neck pain. Eyes: Negative for pain and discharge. Respiratory: Positive for cough. Negative for shortness of breath and wheezing. Cardiovascular: Positive for chest pain. Negative for palpitations and leg swelling. Gastrointestinal: Positive for nausea. Negative for vomiting, abdominal pain, diarrhea, constipation and blood in stool. Genitourinary: Negative for dysuria, urgency and frequency. Musculoskeletal: Positive for myalgias. Negative for back pain. Neurological: Positive for headaches. Negative for dizziness and weakness. Psychiatric/Behavioral: Negative for suicidal ideas and hallucinations. The patient is not nervous/anxious. -------- PAST HISTORY Pertinent Past History: Past Medical History: Diagnosis Date Anxiety Asthma Depression GERD (gastroesophageal reflux disease) HLD (hyperlipidemia) Hyperthyroidism Manic behavior (HCC) GARY (obstructive sleep apnea) PONV (postoperative nausea and vomiting) Patient Active Problem List: Chest pain [R07.9] Depression [F32.A] Indigestion [K30] Gastroesophageal reflux disease [K21.9] Fatty liver [K76.0] History of thyroid disease [Z86.39] Irritable bowel syndrome with constipation [K58.1] Psoriasis [L40.9] GARY (obstructive sleep apnea) [G47.33] Inadequate sleep hygiene [Z72.821] Nose abnormality [Q30.9] Adenoid hypertrophy [J35.2] Hypertrophy of nasal turbinates [J34.3] Deviated nasal septum [J34.2] Lumbosacral radiculopathy [M54.17] Chronic pain syndrome [G89.4] Cervical radicular pain [M54.12] Lumbar radicular pain [M54.16] Therapy [Z51.89] Cervical radiculopathy at C5 [M54.12] Myelopathy (HCC) [G95.9] Herniated lumbar intervertebral disc [M51.26] Lumbar spondylosis [M47.816] Lumbar radiculopathy [M54.16] Herniated disc, cervical [M50.20] Pertinent Family History: No family history on file. Pertinent Social History: Social History Occupational History Not on file Tobacco Use Smoking status: Every Day Packs/day: 0.25 Years: 34.00 Pack years: 8.50 Types: Cigarettes Smokeless tobacco: Never Substance and Sexual Activity Alcohol use: Yes Comment: socially Drug use: No Sexual activity: Yes Partners: Male ------ PHYSICAL EXAM BP 106/68 Pulse (!) 113 Temp 98.2 F (36.8 C) (Oral) Resp 18 SpO2 97% Physical Exam Vitals and nursing note reviewed. Constitutional: General: She is not in acute distress. Appearance: Normal appearance. She is not diaphoretic. HENT: Head: Normocephalic and atraumatic. Nose: Nose normal. Mouth/Throat: Mouth: Mucous membranes are moist. Eyes: Extraocular Movements: Extraocular movements intact. Pupils: Pupils are equal, round, and reactive to light. Cardiovascular: Rate and Rhythm: Tachycardia present. Comments: No murmurs rubs or gallops Pulmonary: Effort: Pulmonary effort is normal. No respiratory distress. Comments: Patient with no increased respiratory effort, satting appropriately on room air, no rales wheezing or rhonchi Abdominal: Comments: Abdomen is soft, nondistended, nontender, no rebound or guarding, bowel sounds equal present throughout. Musculoskeletal: General: Normal range of motion. Cervical back: Normal range of motion and neck supple. Skin: General: Skin is warm and dry. Neurological: Mental Status: She is alert and oriented to person, place, and time. Psychiatric: Mood and Affect: Mood and affect normal. Behavior: Behavior normal. ED COURSE Nursing triage and assessment notes reviewed and incorporated Chart Reviewed: Summary of pertinent elements includes history of chest pain, GERD, psoriasis, Chart Review (including Care Everywhere visits) including pertinent past labs or imaging studies were incorporated into today's ED chart. Imaging Exams: personally reviewed and final read reviewed ED Course as of 11/12/222119Nov 12, 20222113 HS Troponin I: <4 Troponin is negative [LA] ED Course User Index [LA] Aman Wright PA-C I have provided 1 minutes of smoking cessation counseling to this patient including Advising patient on the health risks of smoking. The patient indicated that he/she was not interested in the learning about the health risks of smoking. MDM AND DISPOSITION Discussion and Plan of Emergency Care: Patient is a 47-year-old female into the ED today with complaints of viral syndrome and chest pain. In the ED the patient is well appearing in no acute distress. Her vitals are stable. On exam patient has no concerning findings other than her mild tachycardia. Patient given Tylenol and Zofran for symptomatic relief. Given her complaint, EKG is obtained and unremarkable. Chest x-ray obtained and unremarkable. Cardiac enzymes and other basic labs obtained. Cardiac enzymes are negative. Other labs unremarkable. Urine shows no evidence of infection. Patient will be discharged with viral syndrome. She can use Tylenol Motrin. At this time patient is stable for discharge, patient is to follow-up as directed. Plan was discussed with this patient and her family of present, all are agreeable. All questions and concerns have been addressed here in the ED today. Clinical Impression Diagnosis Comment Influenza A [J10.1] Myalgia [M79.10] New Prescriptions No medications on file Disposition: Disposition: Home Patient Condition: stable The patient has received a medical screening examination and within reasonable clinical confidence an emergency medical condition has not been identified. Counseling: Spoke with the patient and discussed today s findings, in addition to providing specific details for the plan of care and expected course. They were given the opportunity to ask questions. Discussed return precautions and importance of follow-up. Advised to follow-up with primary care. Advised to return to the ED for changing or worsening symptoms, new symptoms, complaint specific precautions, and precautions listed on the discharge paperwork. The plan of care was mutually agreed upon with the patient. The patient and/or family were given the opportunity to ask questions. All questions asked today in the ED were answered to the best of my ability with today's information. I advised the patient that the emergency evaluation and treatment provided today doesn't end their need for care. It is very important that they follow-up with their primary care provider. I asked that the patient return to the ED for any new, changing or worsening symptoms or for any complaint specific precautions listed on the discharge paperwork. This record was transcribed using dictation software. Every effort has been made to provide a clear and accurate record. However, errors can occur. ANTONIO Mesa PA-C documented in this encounter [facility] 11-12-2022 History of Present illness Narrative Documentation: Mode: Video Consent: This visit was initiated by the patient. Audio and visual communication was utilized in real-time. I confirmed understanding of risks and benefits of telehealth visits and obtained consent to proceed with the telemedicine visit. Location of Patient: Home of patient Time-Based Billing Justifications: Charting in Epic Patient visit (including performing a medically appropriate exam) Obtaining history (or reviewing separately obtained history) Reviewing (chart, labs, and other clinical notes) Counseling/educating the patient/family/caregiver Ordering/interpreting (medications, tests, procedures) [facility] Follow-up visit CC: Psoriasis HPI: Patient is 47 year old female who presents for above. Most recent visit in Dermatology was on 11/12/2022 with Regina Bright MD. Pt notes that she was sick with COVID - she first tested positive on 09/23/22. She tested negative on 09/30/22. She started COVID medication (paxlovid?) on 09/24-09/28. Pt notes she then resumed Humira on 10/17/22 and then had another shot 10/31. She then stopped taking it again due to a pharmacists advice as she has been sick all through september. Her psoriasis is starting to come back on her feet - feels like her hands and feet are starting to flare. She still has fever, vomiting, coughing, leg pain. Notes that she watched her grandkids and caught another fever. She also notes headaches. ROS: Skin: (-) irritation (-) pruritus (-) bleeding (-) ulceration (-) photosensitivity PMH: Past Medical History: Diagnosis Date Anxiety Asthma Depression GERD (gastroesophageal reflux disease) HLD (hyperlipidemia) Hyperthyroidism Manic behavior (HCC) GARY (obstructive sleep apnea) PONV (postoperative nausea and vomiting) Current medications: Current Outpatient Medications Medication Sig Dispense Refill Adalimumab (Humira Pen) 40 MG/0.4ML PNKT Inject 40 mg under the skin every 14 days. 2 Each 3 naloxone 4 MG/0.1ML LIQD nasal liquid Instill 0.1 mL into one nostril (alternate sides) as needed for Other (Drug overdose, give and call 911) for up to 1 dose Indications: Opioid Overdose. 1 Each 1 eucerin (DERMACERIN) cream Apply topically as needed. Apply thin layer to affected area. 1 Tube 1 triamcinolone 0.1 % cream Apply topically 2 times daily. Apply thin layer to affected area. 30 g 0 omeprazole (PRILOSEC) 40 MG capsule Take 1 Capsule by mouth daily. 60 Capsule 3 sodium chloride (OCEAN NASAL SPRAY) 0.65 % nasal spray Instill 4 Sprays into each nostril 4 times daily. 2 Bottle 3 amitriptyline (ELAVIL) 25 MG tablet Take 1 Tablet by mouth at bedtime. 30 Tablet 0 Linaclotide 145 MCG CAPS capsule Take 1 Capsule by mouth daily. 30 Capsule 3 calcipotriene (DOVONOX) 0.005 % ointment Apply topically 2 times daily. Apply thin layer to affected area. 60 g 3 clobetasol (TEMOVATE) 0.05 % cream Apply topically 2 times daily. For rash on hands and feet 60 g 1 albuterol (PROVENTIL HFA) inhaler 90 mcg/inh Inhale 2 Puffs. fluticasone (FLOVENT HFA) 110 MCG/ACT inhaler Inhale 2 Puffs. atorvastatin (LIPITOR) 20 MG tablet Take 20 mg by mouth daily. sertraline (ZOLOFT) 25 MG tablet Take 150 mg by mouth daily. lamotrigine (LAMICTAL) 100 MG tablet Take 100 mg by mouth daily. No current facility-administered medications for this visit. Allergies: Morphine, Naproxen, Penicillins, Toradol [ketorolac tromethamine], and Tramadol FMH: No family history on file. Social history: Social History Socioeconomic History Marital status: Highest education level: 11th grade Tobacco Use Smoking status: Every Day Packs/day: 0.25 Years: 34.00 Pack years: 8.50 Types: Cigarettes Smokeless tobacco: Never Substance and Sexual Activity Alcohol use: Yes Comment: socially Drug use: No Sexual activity: Yes Partners: Male Social Determinants of Health Financial Resource Strain: Medium Risk Difficulty of Paying Living Expenses: Somewhat hard Food Insecurity: No Food Insecurity Worried About Running Out of Food in the Last Year: Never true Ran Out of Food in the Last Year: Never true Transportation Needs: No Transportation Needs Lack of Transportation (Medical): No Lack of Transportation (Non-Medical): No Physical Activity: Insufficiently Active Days of Exercise per Week: 1 day Minutes of Exercise per Session: 30 min Stress: Stress Concern Present Feeling of Stress : To some extent Social Connections: Moderately Isolated Frequency of Communication with Friends and Family: More than three times a week Frequency of Social Gatherings with Friends and Family: More than three times a week Attends Sikh Services: Never Active Member of Clubs or Organizations: No Attends Club or Organization Meetings: Never Marital Status: Intimate Partner Violence: Not At Risk Fear of Current or Ex-Partner: No Emotionally Abused: No Physically Abused: No Sexually Abused: No Physical Exam: General: NAD, alert, well-appearing Neuro: alert and oriented, no gross deficits noted Psych: appropriate mood and affect HEENT: no conjunctival injection, moist mucous membranes, no masses Skin exam as follows: Scalp: Examined Hair: Examined Eyelids: Examined Ears: Examined Lips: Examined Mouth: Examined Face: Examined Neck: Examined Pertinent findings include: Skin type I-II 1.)Erythema on bl hands Assessment/Plan: 1.) Psoriasis - palmoplantar - Counseled pt to continue to hold the Humira until she is feeling better - In the interim, recommend maximizing topical medication usage: clobetasol and calcipotriene BID to affected areas (hands, feet) - After patient recovers, she is interested in starting a nother medication that does not have the same side effects (increased infection risk). Considered Otezla, however will defer to later given currenty symptoms of vomiting and note hx of depression. Acitretin in relative contraindicated due to history of poorly controlled depression and hyperlipidemia. May consider cosentyx/ IL7 inhibitor - In interim, optimize topicals with clobetasol/ calcipotriene ointment BID to affected areas Return to clinic in 2 months. Regina Bright MD [facility] documented in this encounter [facility] 10-02-2022 Telephone encounter Note Patient notes that she had a fever, had diarrhea, but is now better. She is interested in switching Humira to another option. Counseled patient will need a video visit prior to this. Ok to resume humira at this time, q14 day dosing. External lab order for quantiferon placed (pt to obtain it at [facility]). Note patient unwilling to come to [facility] for labs due to concern over infection. [facility] 10-02-2022 Miscellaneous Notes Patient notes that she had a fever, had diarrhea, but is now better. She is interested in switching Humira to another option. Counseled patient will need a video visit prior to this. Ok to resume humira at this time, q14 day dosing. External lab order for quantiferon placed (pt to obtain it at [facility]). Note patient unwilling to come to [facility] for labs due to concern over infection. documented in this encounter [facility] 07-23-2022 History of Present illness Narrative Documentation: Mode: Telephone Patient Patient Work Phone: Patient Cell Preferred phone: [phone] Consent: I confirmed patient understanding of the risks and benefits of telehealth visits and obtained consent to proceed with the telehealth visit. Location of Patient: Home of patient [facility] Follow-up visit CC: Follow up for psoriasis HPI: Patient is 47 year old female who presents for follow up for psoriasis. Most recent visit in Dermatology was on 05/20/2021 with Karlee Sanchez MD. Duration: Many years Location: [place] Treatments: Humira every 10 days, taclonex BID (not needed) Other: Patient notes that her psoriasis comes back when she doesn't take the shot. The only thing that comes up is her skin peels. Pt notes spina bifida hx. Pt denies any other skin lesions of concern, or other lesions with bleeding, itching, or pain. ROS: Skin: (-) irritation (-) pruritus (-) bleeding (-) ulceration (-) photosensitivity PMH: Past Medical History: Diagnosis Date Anxiety Asthma Depression GERD (gastroesophageal reflux disease) HLD (hyperlipidemia) Hyperthyroidism Manic behavior (HCC) GARY (obstructive sleep apnea) PONV (postoperative nausea and vomiting) Current medications: Current Outpatient Medications Medication Sig Dispense Refill Adalimumab 40 MG/0.4ML PNKT INJECT 40 MG INTO THE SKIN EVERY 10 (TEN) DAYS 2 Each 2 adalimumab (Humira) 40 MG/0.8ML PSKT injection Inject 0.8 mL into the skin every 10 (ten) days 3 Each 5 Adalimumab (Humira Pen) 40 MG/0.4ML PNKT Inject 40 mg into the skin every 10 (ten) days 1 Each 7 Adalimumab 40 MG/0.4ML PNKT Inject 40 mg under the skin every 10 days. Dispense Citrate-free formulation. Patient needs to follow up for further refills 2 Each 1 naloxone 4 MG/0.1ML LIQD nasal liquid Instill 0.1 mL into one nostril (alternate sides) as needed for Other (Drug overdose, give and call 911) for up to 1 dose Indications: Opioid Overdose. 1 Each 1 eucerin (DERMACERIN) cream Apply topically as needed. Apply thin layer to affected area. 1 Tube 1 triamcinolone 0.1 % cream Apply topically 2 times daily. Apply thin layer to affected area. 30 g 0 omeprazole (PRILOSEC) 40 MG capsule Take 1 Capsule by mouth daily. 60 Capsule 3 sodium chloride (OCEAN NASAL SPRAY) 0.65 % nasal spray Instill 4 Sprays into each nostril 4 times daily. 2 Bottle 3 amitriptyline (ELAVIL) 25 MG tablet Take 1 Tablet by mouth at bedtime. 30 Tablet 0 Linaclotide 145 MCG CAPS capsule Take 1 Capsule by mouth daily. 30 Capsule 3 calcipotriene (DOVONOX) 0.005 % ointment Apply topically 2 times daily. Apply thin layer to affected area. 60 g 3 clobetasol (TEMOVATE) 0.05 % cream Apply topically 2 times daily. For rash on hands and feet 60 g 1 albuterol (PROVENTIL HFA) inhaler 90 mcg/inh Inhale 2 Puffs. fluticasone (FLOVENT HFA) 110 MCG/ACT inhaler Inhale 2 Puffs. atorvastatin (LIPITOR) 20 MG tablet Take 20 mg by mouth daily. sertraline (ZOLOFT) 25 MG tablet Take 150 mg by mouth daily. lamotrigine (LAMICTAL) 100 MG tablet Take 100 mg by mouth daily. No current facility-administered medications for this visit. Allergies: Morphine, Naproxen, Penicillins, Toradol [ketorolac tromethamine], and Tramadol FMH: No family history on file. 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 Regina Bright MD [facility] SCRIBE ATTESTATION This note is precharted by Nick Munoz acting as scribe for Regina Bright MD. Scribe was not present during visit. documented in this encounter [facility] 07-02-2022 Telephone encounter Note Images from the original note were not included. SPECIALTY PHARMACY - Prior Auth Approved Medication and dosing: Humira 40 mg/0.4ml Pen - Inject 40 mg under the skin every 10 days Insurance: [employer] Prescriber: Gavi Nixon prior authorization has been approved beginning date 04/02/2022 until end date 07/02/2023. ( ) The pharmacy will contact patient Heather Johns and update her on the approval status. Pharmacy to contact patient regarding next step for medication fill. Encounter to be routed to appropriate cost recovery technician/pharmacist for medication fill outreach. Patient questions may be directed to: [phone] option 3 Thank you, Maya Andrews CPhT [facility] 07-02-2022 Miscellaneous Notes Images from the original note were not included. SPECIALTY PHARMACY - Prior Auth Approved Medication and dosing: Humira 40 mg/0.4ml Pen - Inject 40 mg under the skin every 10 days Insurance: [employer] Prescriber: Gavi Nixon prior authorization has been approved beginning date 04/02/2022 until end date 07/02/2023. ( ) The pharmacy will contact patient Heather Johns and update her on the approval status. Pharmacy to contact patient regarding next step for medication fill. Encounter to be routed to appropriate cost recovery technician/pharmacist for medication fill outreach. Patient questions may be directed to: [phone] option 3 Thank you, Maya Andrews CPhT SPECIALTY PHARMACY REFERRAL (Department: Dermatology) Received request to process prior authorization RENEWAL for HUMIRA for this patient: (Current prior authorization will 07/05/22.) Patient Information: Heather Johns 1975 [address] [facility] [address] Insurance on file: ALBER ID: [id number] BIN: [id number] PCN: MEDDPRIME Group: [id number] Insurance on file: CAREMARK ID: [id number] BIN: [id number] PCN: IS Group: WM2A Allergies Allergen Reactions Morphine Confusion Naproxen Upset Stomach Penicillins Rash Toradol [Ketorolac Tromethamine] Vomiting Tramadol Upset Stomach Specialty Medication Assessment: Med/Sig: Humira 40mg/0.4ml Pens Inject 40mg Sub-Q every 10 days Provider: Karlee Sanchez Indication: Psoriasis (ICD-10 code L40.9) Prior Treatment: - Humira - calcipotriene - clobetasol - Dovonex - Taclonex Injection experience Yes Training required? Not at this time Current Medications Current Outpatient Medications on File Prior to Visit Medication Sig Dispense Refill Adalimumab 40 MG/0.4ML PNKT INJECT 40 MG INTO THE SKIN EVERY 10 (TEN) DAYS 2 Each 2 adalimumab (Humira) 40 MG/0.8ML PSKT injection Inject 0.8 mL into the skin every 10 (ten) days 3 Each 5 Adalimumab (Humira Pen) 40 MG/0.4ML PNKT Inject 40 mg into the skin every 10 (ten) days 1 Each 7 Adalimumab 40 MG/0.4ML PNKT Inject 40 mg under the skin every 10 days. Dispense Citrate-free formulation. Patient needs to follow up for further refills 2 Each 1 naloxone 4 MG/0.1ML LIQD nasal liquid Instill 0.1 mL into one nostril (alternate sides) as needed for Other (Drug overdose, give and call 911) for up to 1 dose Indications: Opioid Overdose. 1 Each 1 eucerin (DERMACERIN) cream Apply topically as needed. Apply thin layer to affected area. 1 Tube 1 triamcinolone 0.1 % cream Apply topically 2 times daily. Apply thin layer to affected area. 30 g 0 omeprazole (PRILOSEC) 40 MG capsule Take 1 Capsule by mouth daily. 60 Capsule 3 sodium chloride (OCEAN NASAL SPRAY) 0.65 % nasal spray Instill 4 Sprays into each nostril 4 times daily. 2 Bottle 3 amitriptyline (ELAVIL) 25 MG tablet Take 1 Tablet by mouth at bedtime. 30 Tablet 0 Linaclotide 145 MCG CAPS capsule Take 1 Capsule by mouth daily. 30 Capsule 3 calcipotriene (DOVONOX) 0.005 % ointment Apply topically 2 times daily. Apply thin layer to affected area. 60 g 3 clobetasol (TEMOVATE) 0.05 % cream Apply topically 2 times daily. For rash on hands and feet 60 g 1 albuterol (PROVENTIL HFA) inhaler 90 mcg/inh Inhale 2 Puffs. fluticasone (FLOVENT HFA) 110 MCG/ACT inhaler Inhale 2 Puffs. atorvastatin (LIPITOR) 20 MG tablet Take 20 mg by mouth daily. sertraline (ZOLOFT) 25 MG tablet Take 150 mg by mouth daily. lamotrigine (LAMICTAL) 100 MG tablet Take 100 mg by mouth daily. No current facility-administered medications on file prior to visit. PMH Past Medical History: Diagnosis Date Anxiety Asthma Depression GERD (gastroesophageal reflux disease) HLD (hyperlipidemia) Hyperthyroidism Manic behavior (HCC) GARY (obstructive sleep apnea) PONV (postoperative nausea and vomiting) Labs Hepatitis B Surface Antigen (no units) Date Value 02/28/2019 Non-Reactive Creatinine (mg/dL) Date Value 11/02/2018 0.81 Estimated GFR (CKD-EPI) (mL/min/1.73sqm) Date Value 11/02/2018 89 Alkaline Phosphatase (IU/L) Date Value 06/24/2017 79 ALT (SGPT) (IU/L) Date Value 06/24/2017 20 AST (SGOT) (IU/L) Date Value 06/24/2017 14 TB (Cell Mediated) (no units) Date Value 02/28/2019 Negative TB Antigen 1 (IU/mL) Date Value 02/28/2019 <0.35 TB Antigen 2 (IU/mL) Date Value 02/28/2019 <0.35 Supporting Clinical Information: Per chart notes: 05/20/21 HPI: Heather Johns is a 45 year old female who was last seen in dermatology on 2019 for psoriasis, started on Humira. Today, [facility] presents for follow up. 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 Has been on Humira every 10 days as prescribed by PCP with good response until recently. No missed dosages. No new or worsening joint pains. No changes to medical status. Pt has not used topicals in years. Assessment & Plan: 1. Palmoplantar psoriasis, mild flare - Discussed likely diagnosis and treatment options - Can continue Humira every 10 days as prescribed by PCP, will check TB today as patient is due - Start taclonex BID to affected areas, proper usage and risk discussed - Will follow up in 3 months, if no improvement may need to consider switching biologic agent. Pt also due to FBSE Return to clinic in 3 months Patient to return sooner if worsening or if changes arise. The patient was given an opportunity to ask questions at the conclusion of the visit. Patient instructions and follow up were reviewed together. Patient was seen and discussed with Dr. Romero. Barriers to treatment: prior authorization required PLAN: - Will submit to insurance for HUMIRA prior authorization renewal - Will communicate updates on prior authorization process in this note. - Medication reconciliation completed at last office visit. Medications are accurate as listed in chart. Joseph Alfredo RPh [facility] [phone] option 3 documented in this encounter [facility] 06-24-2022 Telephone encounter Note SPECIALTY PHARMACY REFERRAL (Department: Dermatology) Received request to process prior authorization RENEWAL for HUMIRA for this patient: (Current prior authorization will 07/05/22.) Patient Information: Heather Johns 1975 [address] [facility] [address] Insurance on file: ALBER ID: [id number] BIN: [id number] PCN: MEDDPRIME Group: [id number] Insurance on file: CAREMARK ID: [id number] BIN: [id number] PCN: IS Group: [id number] Allergies Allergen Reactions Morphine Confusion Naproxen Upset Stomach Penicillins Rash Toradol [Ketorolac Tromethamine] Vomiting Tramadol Upset Stomach Specialty Medication Assessment: Med/Sig: Humira 40mg/0.4ml Pens Inject 40mg Sub-Q every 10 days Provider: Karlee Sanchez Indication: Psoriasis (ICD-10 code L40.9) Prior Treatment: - Humira - calcipotriene - clobetasol - Dovonex - Taclonex Injection experience Yes Training required? Not at this time Current Medications Current Outpatient Medications on File Prior to Visit Medication Sig Dispense Refill Adalimumab 40 MG/0.4ML PNKT INJECT 40 MG INTO THE SKIN EVERY 10 (TEN) DAYS 2 Each 2 adalimumab (Humira) 40 MG/0.8ML PSKT injection Inject 0.8 mL into the skin every 10 (ten) days 3 Each 5 Adalimumab (Humira Pen) 40 MG/0.4ML PNKT Inject 40 mg into the skin every 10 (ten) days 1 Each 7 Adalimumab 40 MG/0.4ML PNKT Inject 40 mg under the skin every 10 days. Dispense Citrate-free formulation. Patient needs to follow up for further refills 2 Each 1 naloxone 4 MG/0.1ML LIQD nasal liquid Instill 0.1 mL into one nostril (alternate sides) as needed for Other (Drug overdose, give and call 911) for up to 1 dose Indications: Opioid Overdose. 1 Each 1 eucerin (DERMACERIN) cream Apply topically as needed. Apply thin layer to affected area. 1 Tube 1 triamcinolone 0.1 % cream Apply topically 2 times daily. Apply thin layer to affected area. 30 g 0 omeprazole (PRILOSEC) 40 MG capsule Take 1 Capsule by mouth daily. 60 Capsule 3 sodium chloride (OCEAN NASAL SPRAY) 0.65 % nasal spray Instill 4 Sprays into each nostril 4 times daily. 2 Bottle 3 amitriptyline (ELAVIL) 25 MG tablet Take 1 Tablet by mouth at bedtime. 30 Tablet 0 Linaclotide 145 MCG CAPS capsule Take 1 Capsule by mouth daily. 30 Capsule 3 calcipotriene (DOVONOX) 0.005 % ointment Apply topically 2 times daily. Apply thin layer to affected area. 60 g 3 clobetasol (TEMOVATE) 0.05 % cream Apply topically 2 times daily. For rash on hands and feet 60 g 1 albuterol (PROVENTIL HFA) inhaler 90 mcg/inh Inhale 2 Puffs. fluticasone (FLOVENT HFA) 110 MCG/ACT inhaler Inhale 2 Puffs. atorvastatin (LIPITOR) 20 MG tablet Take 20 mg by mouth daily. sertraline (ZOLOFT) 25 MG tablet Take 150 mg by mouth daily. lamotrigine (LAMICTAL) 100 MG tablet Take 100 mg by mouth daily. No current facility-administered medications on file prior to visit. PMH Past Medical History: Diagnosis Date Anxiety Asthma Depression GERD (gastroesophageal reflux disease) HLD (hyperlipidemia) Hyperthyroidism Manic behavior (HCC) GARY (obstructive sleep apnea) PONV (postoperative nausea and vomiting) Labs Hepatitis B Surface Antigen (no units) Date Value 02/28/2019 Non-Reactive Creatinine (mg/dL) Date Value 11/02/2018 0.81 Estimated GFR (CKD-EPI) (mL/min/1.73sqm) Date Value 11/02/2018 89 Alkaline Phosphatase (IU/L) Date Value 06/24/2017 79 ALT (SGPT) (IU/L) Date Value 06/24/2017 20 AST (SGOT) (IU/L) Date Value 06/24/2017 14 TB (Cell Mediated) (no units) Date Value 02/28/2019 Negative TB Antigen 1 (IU/mL) Date Value 02/28/2019 <0.35 TB Antigen 2 (IU/mL) Date Value 02/28/2019 <0.35 Supporting Clinical Information: Per chart notes: 05/20/21 HPI: Heather Johns is a 45 year old female who was last seen in dermatology on 2019 for psoriasis, started on Humira. Today, [facility] presents for follow up. 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 Has been on Humira every 10 days as prescribed by PCP with good response until recently. No missed dosages. No new or worsening joint pains. No changes to medical status. Pt has not used topicals in years. Assessment & Plan: 1. Palmoplantar psoriasis, mild flare - Discussed likely diagnosis and treatment options - Can continue Humira every 10 days as prescribed by PCP, will check TB today as patient is due - Start taclonex BID to affected areas, proper usage and risk discussed - Will follow up in 3 months, if no improvement may need to consider switching biologic agent. Pt also due to FBSE Return to clinic in 3 months Patient to return sooner if worsening or if changes arise. The patient was given an opportunity to ask questions at the conclusion of the visit. Patient instructions and follow up were reviewed together. Patient was seen and discussed with Dr. Romero. Barriers to treatment: prior authorization required PLAN: - Will submit to insurance for HUMIRA prior authorization renewal - Will communicate updates on prior authorization process in this note. - Medication reconciliation completed at last office visit. Medications are accurate as listed in chart. Joseph Alfredo RPh [facility] [phone] option 3 [facility] 06-24-2022 Miscellaneous Notes SPECIALTY PHARMACY REFERRAL (Department: Dermatology) Received request to process prior authorization RENEWAL for HUMIRA for this patient: (Current prior authorization will 07/05/22.) Patient Information: Heather Johns 1975 [address] [facility] [address] Insurance on file: ALBER ID: [id number] BIN: [id number] PCN: MEDDPRIME Group: [id number] Insurance on file: CAREMARK ID: [id number] BIN: [id number] PCN: IS Group: WM2A Allergies Allergen Reactions Morphine Confusion Naproxen Upset Stomach Penicillins Rash Toradol [Ketorolac Tromethamine] Vomiting Tramadol Upset Stomach Specialty Medication Assessment: Med/Sig: Humira 40mg/0.4ml Pens Inject 40mg Sub-Q every 10 days Provider: Karlee Sanchez Indication: Psoriasis (ICD-10 code L40.9) Prior Treatment: - Humira - calcipotriene - clobetasol - Dovonex - Taclonex Injection experience Yes Training required? Not at this time Current Medications Current Outpatient Medications on File Prior to Visit Medication Sig Dispense Refill Adalimumab 40 MG/0.4ML PNKT INJECT 40 MG INTO THE SKIN EVERY 10 (TEN) DAYS 2 Each 2 adalimumab (Humira) 40 MG/0.8ML PSKT injection Inject 0.8 mL into the skin every 10 (ten) days 3 Each 5 Adalimumab (Humira Pen) 40 MG/0.4ML PNKT Inject 40 mg into the skin every 10 (ten) days 1 Each 7 Adalimumab 40 MG/0.4ML PNKT Inject 40 mg under the skin every 10 days. Dispense Citrate-free formulation. Patient needs to follow up for further refills 2 Each 1 naloxone 4 MG/0.1ML LIQD nasal liquid Instill 0.1 mL into one nostril (alternate sides) as needed for Other (Drug overdose, give and call 911) for up to 1 dose Indications: Opioid Overdose. 1 Each 1 eucerin (DERMACERIN) cream Apply topically as needed. Apply thin layer to affected area. 1 Tube 1 triamcinolone 0.1 % cream Apply topically 2 times daily. Apply thin layer to affected area. 30 g 0 omeprazole (PRILOSEC) 40 MG capsule Take 1 Capsule by mouth daily. 60 Capsule 3 sodium chloride (OCEAN NASAL SPRAY) 0.65 % nasal spray Instill 4 Sprays into each nostril 4 times daily. 2 Bottle 3 amitriptyline (ELAVIL) 25 MG tablet Take 1 Tablet by mouth at bedtime. 30 Tablet 0 Linaclotide 145 MCG CAPS capsule Take 1 Capsule by mouth daily. 30 Capsule 3 calcipotriene (DOVONOX) 0.005 % ointment Apply topically 2 times daily. Apply thin layer to affected area. 60 g 3 clobetasol (TEMOVATE) 0.05 % cream Apply topically 2 times daily. For rash on hands and feet 60 g 1 albuterol (PROVENTIL HFA) inhaler 90 mcg/inh Inhale 2 Puffs. fluticasone (FLOVENT HFA) 110 MCG/ACT inhaler Inhale 2 Puffs. atorvastatin (LIPITOR) 20 MG tablet Take 20 mg by mouth daily. sertraline (ZOLOFT) 25 MG tablet Take 150 mg by mouth daily. lamotrigine (LAMICTAL) 100 MG tablet Take 100 mg by mouth daily. No current facility-administered medications on file prior to visit. PMH Past Medical History: Diagnosis Date Anxiety Asthma Depression GERD (gastroesophageal reflux disease) HLD (hyperlipidemia) Hyperthyroidism Manic behavior (HCC) GARY (obstructive sleep apnea) PONV (postoperative nausea and vomiting) Labs Hepatitis B Surface Antigen (no units) Date Value 02/28/2019 Non-Reactive Creatinine (mg/dL) Date Value 11/02/2018 0.81 Estimated GFR (CKD-EPI) (mL/min/1.73sqm) Date Value 11/02/2018 89 Alkaline Phosphatase (IU/L) Date Value 06/24/2017 79 ALT (SGPT) (IU/L) Date Value 06/24/2017 20 AST (SGOT) (IU/L) Date Value 06/24/2017 14 TB (Cell Mediated) (no units) Date Value 02/28/2019 Negative TB Antigen 1 (IU/mL) Date Value 02/28/2019 <0.35 TB Antigen 2 (IU/mL) Date Value 02/28/2019 <0.35 Supporting Clinical Information: Per chart notes: 05/20/21 HPI: Heather Johns is a 45 year old female who was last seen in dermatology on 2019 for psoriasis, started on Humira. Today, [facility] presents for follow up. 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 Has been on Humira every 10 days as prescribed by PCP with good response until recently. No missed dosages. No new or worsening joint pains. No changes to medical status. Pt has not used topicals in years. Assessment & Plan: 1. Palmoplantar psoriasis, mild flare - Discussed likely diagnosis and treatment options - Can continue Humira every 10 days as prescribed by PCP, will check TB today as patient is due - Start taclonex BID to affected areas, proper usage and risk discussed - Will follow up in 3 months, if no improvement may need to consider switching biologic agent. Pt also due to FBSE Return to clinic in 3 months Patient to return sooner if worsening or if changes arise. The patient was given an opportunity to ask questions at the conclusion of the visit. Patient instructions and follow up were reviewed together. Patient was seen and discussed with Dr. Romero. Barriers to treatment: prior authorization required PLAN: - Will submit to insurance for HUMIRA prior authorization renewal - Will communicate updates on prior authorization process in this note. - Medication reconciliation completed at last office visit. Medications are accurate as listed in chart. Joseph Alfredo RPh [facility] [phone] option 3 documented in this encounter [facility] 05-26-2022 History of Present illness Narrative Needs meds HPI: pt needs meds for psoriasis Last script from pcp did not go through Pt overall doing ok Pt has no acute illess ROS:no F/N/V/D/Rash PMH/Problem list, Social, Meds, Allergies and FH: reviewed and updated for pertinent issues. There were no vitals taken for this visit. GEN: well appearing, NAD A/P: 46 year old Pt here for Psoriasis, unspecified [[id number]] Orders & Meds Signed During This Encounter Adalimumab 40 MG/0.4ML PNKT PT educated about above condition. Recheck as needed for persistence, worsening, or appearance of new symptoms. Pt voiced understanding and agrees to plan. Alie Harper MD documented in this encounter [facility] Evaluation + Plan note No data available for this section [facility] Evaluation note Diagnosis Psoriasis, unspecified- Primary [facility] Diagnosis Palmoplantar pustular psoriasis- Primary Other psoriasis High risk medication use Encounter for long-term (current) use of other medications [facility] Diagnosis Psoriasis, unspecified- Primary [facility]* Diagnosis Psoriasis, unspecified- Primary High risk medication use Encounter for long-term (current) use of other medications [facility]* Diagnosis Psoriasis- Primary Other psoriasis [facility]* Diagnosis Influenza A- Primary Influenza with other respiratory manifestations Myalgia Mylagia and myositis, unspecified [facility]* Diagnosis Indigestion- Primary Dyspepsia and other specified disorders of function of stomach Body mass index (BMI) 28.0-28.9, adult [facility]* Diagnosis Indigestion Dyspepsia and other specified disorders of function of stomach [facility]* Diagnosis Palmoplantar pustular psoriasis Other psoriasis High risk medication use Encounter for long-term (current) use of other medications Psoriasis, unspecified [facility]* Diagnosis Indigestion- Primary Dyspepsia and other specified disorders of function of stomach Body mass index (BMI) 28.0-28.9, adult Indigestion Dyspepsia and other specified disorders of function of stomach [facility]* Diagnosis Psoriasis- Primary Other psoriasis High risk medication use Encounter for long-term (current) use of other medications [facility]* Diagnosis Nonspecific chest pain- Primary Epigastric pain Abdominal pain, epigastric Gastroesophageal reflux disease, unspecified whether esophagitis present [facility]* Diagnosis Left upper quadrant abdominal pain- Primary Gastroesophageal reflux disease without esophagitis Esophageal reflux Hiatal hernia Diaphragmatic hernia without mention of obstruction or gangrene Body mass index (BMI) 29.0-29.9, adult [facility]* Diagnosis Colicky RUQ abdominal pain [facility] No data available for this section [facility] No data available for this section [facility] Summary Purpose Family History No Family History Records FoundNo Family History Records FoundNo Family History Records Found No data available for this section No Family History Records FoundNo Family History Records FoundNo Family History Records FoundNo Family History Records Found Advance Directives No Advanced Directives Records FoundLatest Code Status on File Code Status Date Activated Date Inactivated Comments Full Code 01/08/2018 4:36 PM 01/09/2018 12:51 PM Latest Code Status on File Code Status Date Activated Date Inactivated Comments Full Code 01/08/2018 4:36 PM 01/09/2018 12:51 PM Latest Code Status on File Code Status Date Activated Date Inactivated Comments Full Code 01/08/2018 4:36 PM 01/09/2018 12:51 PM Latest Code Status on File Code Status Date Activated Date Inactivated Comments Full Code 01/08/2018 4:36 PM 01/09/2018 12:51 PM Reason for Referral Specialty Diagnoses / Procedures Referred By Idania verdin Referred To Contact Nutrition Diagnoses Indigestion Mariusz Kruger MD [address] [place] [address] [place] [address] [facility] NUTRITION [address] [place] [address] Referral ID Status Reason Start Date Expiration Date Visits Requested Visits Authorized [id number] Authorized Consultatio n-[facility] 12/05/2022 12/05/2023 3 3 Scheduling Instructions Please call the Nutrition Clinic at to schedule an appointment if one was not made for you today. Question Answer Please specify primary reason for consult. Digestive Disorders Comments Discuss how to deal with gastroparesis. No prior visits in Nutrition Specialty Diagnoses / Procedures Referred By Contac t Referred To Contact Radiology Diagnoses Indigestion Procedures NM GASTRIC EMPTYING STUDY Gastroenterology [address] [place] [address] [facility] NUCLEAR MEDICINE [address] [place] [address] Referral ID Status Reason Start Date Expiration Date V isits Requested Visits Authorized [id number] Pending Review 12/05/2022 12/05/2023 1 1 Specialty Diagnoses / Procedures Referred By Contac t Referred To Contact Radiology Diagnoses Indigestion Procedures NM GASTRIC EMPTYING STUDY Mariusz Kruger MD [address] [place] [address] [place] [address] [facility] NUCLEAR MEDICINE [address] [place] [address] Referral ID Status Reason Start Date Expiration Date V isits Requested Visits Authorized [id number] Closed Transfer of Care-[facility] 12/16/2022 01/30/2023 1 1 Specialty Diagnoses / Procedures Referred By Contac t Referred To Contact Diagnoses Shira Chowdhury DO [address] [place] [address] [place] [address] Referral ID Status Reason Start Date Expiration Date Visits Re quested Visits Authorized [id number] Denied 3 3 Specialty Diagnoses / Procedures Referred By Contac t Referred To Contact Gastroenterology Diagnoses Epigastric pain Gastroesophageal reflux disease, unspecified whether esophagitis present Paulina Jones DO [address] [place] [address] [facility] GASTROENTEROLOGY [address] [place] [address] Referral ID Status Reason Start Date Expiration Date V isits Requested Visits Authorized [id number] Authorized 08/08/2023 08/08/2024 3 3 Scheduling Instructions Please call the Gastroenterology Clinic at to schedule an appointment if one was not made for you today. Question Answer Reason for Referral: Pain-Abdomen [16] Which GI clinic should the patient be scheduled in? General GI Clinic Comments Most recent visit in Gastroenterology was on 12/05/2022 with Mason Walls MD Specialty Diagnoses / Procedures Referred By Idania verdin Referred To Contact Radiology Diagnoses Colicky RUQ abdominal pain Procedures US LIVER/GALL BLADDER/PANCREAS Leopoldo Woods, ELECTRICAL TRANSMISSION ENGINEER-RECEPTIONIST DOCTOR'S OFFICE [address] [place] [address] [facility] ULTRASOUND [address] [place] [address] Referral ID Status Reason Start Date Expiration Date Visits Re quested Visits Authorized [id number] Closed 10/15/2023 10/14/2024 1 1 Additional Source Comments INFORMATION SOURCE (unrecogn ized section and content) DATE CREATED AUTHOR 06/28/2019 [facility] DATE CREATED AUTHOR AUTHOR'S ORGANIZ ATION 03/10/2022 [facility] DATE CREATED AUTHOR AUTHOR'S ORGANIZ ATION 10/25/2023 [facility] DATE CREATED AUTHOR AUTHOR'S ORGANIZ ATION 02/19/2024 [facility] DATE CREATED AUTHOR AUTHOR'S ORGANIZ ATION 02/23/2024 [facility] DATE CREATED AUTHOR AUTHOR'S ORGANIZ ATION 03/01/2024 [facility] [facility] DATE CREATED AUTHOR AUTHOR'S ORGANIZ ATION 04/12/2024 [facility] Reason for Visit (unrecogniz ed section and content) Reason Comments Refill Reason Onset Date Comments Specialty Pharmacy Referral 06/24/2022 [facility] Reason Onset Date Comments Specialty Pharmacy Referral 06/24/2022 [facility] - [place] APPROVED Reason Comments Psoriasis Reason Onset Date Comments Refill 08/13/2022 Reason Onset Date Comments Dermatology 10/02/2022 Reason Onset Date Comments Specialty Pharmacy Medication Refill 11/28/2022 Humira Reason Onset Date Comments Refill 12/17/2022 Reason Onset Date Comments Specialty Pharmacy Medication Refill 12/23/2022 Humira Specialty Diagnoses / Procedures Referred By Idania verdin Referred To Contact Radiology Diagnoses Indigestion Procedures NM GASTRIC EMPTYING STUDY Mariusz Kruger MD [address] [place] [address] [facility] NUCLEAR MEDICINE [address] [place] [address] Referral ID Status Reason Start Date Expiration Date V isits Requested Visits Authorized [id number] Closed Transfer of Care-[facility] 12/16/2022 01/30/2023 1 1 Reason Onset Date Comments Specialty Pharmacy Medication Refill 01/20/2023 Humira Reason Onset Date Comments Specialty Pharmacy Medication Refill 02/20/2023 Humira Reason Onset Date Comments Refill 04/08/2023 Reason Onset Date Comments Specialty Pharmacy Medication Refill 04/10/2023 Humira Reason Onset Date Comments Specialty Pharmacy Referral 07/22/2023 [facility] A Reason Comments Psoriasis Reason Comments Abdominal pain Epigastric pain x1.5 weeks. Pt states she thinks she has a hernia. Specialty Diagnoses / Procedures Referred By Idania verdin Referred To Contact Gastroenterology Diagnoses Epigastric pain Gastroesophageal reflux disease, unspecified whether esophagitis present Paulina Jones DO [address] [place] [address] [facility] GASTROENTEROLOGY [address] [place] [address] Referral ID Status Reason Start Date Expiration Date V isits Requested Visits Authorized [id number] Authorized 08/08/2023 08/08/2024 3 3 Specialty Diagnoses / Procedures Referred By Idania verdin Referred To Contact Radiology Diagnoses Colicky RUQ abdominal pain Procedures US LIVER/GALL BLADDER/PANCREAS Leopoldo Woods, ELECTRICAL TRANSMISSION ENGINEER-RECEPTIONIST DOCTOR'S OFFICE [address] [id number] [facility] ULTRASOUND [address] [place] [address] Referral ID Status Reason Start Date Expiration Date Visits Re quested Visits Authorized [id number] Closed 10/15/2023 10/14/2024 1 1 Care Teams (unrecognized sec tion and content) Certified Physical Therapist Assistant Relationship Specialty Start Date End Date Ivy Negrete MD PCP - General Pediatrics 12/08/17 Antwan Woodruff MD [address] [place] [address] 35942 Fellow Gastroenterology 04/22/17 Don Moya MD [address] [place] [address] 82980 Physician Orthopaedic Surgery 09/04/20 Nathaniel Ovalle MD [address] [place] [address] 43095 Physician Pain Management 09/04/20 Lianne Mayo DO [address] [place] [address] [place] [address] Resident Dermatology 09/04/20 Certified Physical Therapist Assistant Relationship Specialty Start Date End Date Ivy Negrete MD PCP - General Pediatrics 12/08/17 Antwan Woodruff MD [address] [place] [address] 03955 Fellow Gastroenterology 04/22/17 Don Moya MD [address] [place] [address] 64044 Physician Orthopaedic Surgery 09/04/20 Nathaniel Ovalle MD [address] [place] [address] 61890 Physician Pain Management 09/04/20 Lianne Mayo DO [address] [place] [address] [place] [address] Resident Dermatology 09/04/20 Karlee Sanchez MD [address] [place] [address] [place] [address] Physician Dermatology 05/31/22 Certified Physical Therapist Assistant Relationship Specialty Start Date End Date Ivy Negrete MD PCP - General Pediatrics 12/08/17 Antwan Woodruff MD [address] [place] [address] 04119 Fellow Gastroenterology 04/22/17 Don Moya MD [address] [place] [address] 90956 Physician Orthopaedic Surgery 09/04/20 Nathaniel Ovalle MD [address] [place] [address] 32959 Physician Pain Management 09/04/20 Lianne Mayo DO [address] [place] [address] [place] [address] Resident Dermatology 09/04/20 Karlee Sanchez MD [address] [place] [address] [place] [address] Physician Dermatology 05/31/22 Certified Physical Therapist Assistant Relationship Specialty Start Date End Date Ivy Negrete MD PCP - General Pediatrics 12/08/17 Antwan Woodruff MD [address] [place] [address] 86038 Fellow Gastroenterology 04/22/17 Don Moya MD [address] [place] [address] 53468 Physician Orthopaedic Surgery 09/04/20 Nathaniel Ovalle MD [address] [place] [address] 59672 Physician Pain Management 09/04/20 Lianne Mayo DO [address] [place] [address] [place] [address] Resident Dermatology 09/04/20 Karlee Sanchez MD [address] [place] [address] [place] [address] Physician Dermatology 05/31/22 Certified Physical Therapist Assistant Relationship Specialty Start Date End Date Ivy Negrete MD PCP - General Pediatrics 12/08/17 Antwan Woodruff MD [address] [place] [address] 31729 Fellow Gastroenterology 04/22/17 Don Moya MD [address] [place] [address] 59349 Physician Orthopaedic Surgery 09/04/20 Nathaniel Ovalle MD [address] [place] [address] 10354 Physician Pain Management 09/04/20 Lianne Mayo DO [address] [place] [address] [place] [address] Resident Dermatology 09/04/20 Karlee Sanchez MD [address] [place] [address] [place] [address] Physician Dermatology 05/31/22 Regina Bright MD [address] [place] [address] 65385 Physician Dermatology 08/02/22 Certified Physical Therapist Assistant Relationship Specialty Start Date End Date Leopoldo Woods APRN-RECEPTIONIST DOCTOR'S OFFICE [address] [place] [address] PCP - General Family Medicine 11/12/22 Antwan Woodruff MD [address] [place] [address] 19703 Fellow Gastroenterology 04/22/17 Don Moya MD [address] [place] [address] 37053 Physician Orthopaedic Surgery 09/04/20 Nathaniel Ovalle MD [address] [place] [address] 08093 Physician Pain Management 09/04/20 Lianne Mayo DO [address] [place] [address] [place] [address] Resident Dermatology 09/04/20 Karlee Sanchez MD [address] [place] [address] [place] [address] Physician Dermatology 05/31/22 Regina Bright MD [address] [place] [address] 18683 Physician Dermatology 08/02/22 Certified Physical Therapist Assistant Relationship Specialty Start Date End Date Chuck Leopoldo, ELECTRICAL TRANSMISSION ENGINEER-RECEPTIONIST DOCTOR'S OFFICE [address] [place] [address] PCP - General Family Medicine 11/12/22 Antwan Woodruff MD [address] [place] [address] 49807 Fellow Gastroenterology 04/22/17 Don Moya MD [address] [place] [address] 05355 Physician Orthopaedic Surgery 09/04/20 Nathaniel Ovalle MD [address] [place] [address] 82585 Physician Pain Management 09/04/20 Lianne Mayo DO [address] [place] [address] [place] [address] Resident Dermatology 09/04/20 Karlee Sanchez MD [address] [place] [address] [place] [address] Physician Dermatology 05/31/22 Regina Bright MD [address] [place] [address] 86571 Physician Dermatology 08/02/22 Certified Physical Therapist Assistant Relationship Specialty Start Date End Date Leopoldo Woods APRN[address] [place] [address] PCP - General Family Medicine 11/12/22 Antwan Woodruff MD [address] [place] [address] 77821 Fellow Gastroenterology 04/22/17 Don Moya MD [address] [place] [address] 84384 Physician Orthopaedic Surgery 09/04/20 Nathaniel Ovalle MD [address] [place] [address] 27223 Physician Pain Management 09/04/20 Lianne Mayo DO [address] [place] [address] [place] [address] Resident Dermatology 09/04/20 Karlee Sanchez MD [address] [place] [address] [place] [address] Physician Dermatology 05/31/22 Regina Bright MD [address] [place] [address] 03938 Physician Dermatology 08/02/22 Certified Physical Therapist Assistant Relationship Specialty Start Date End Date Leopoldo Woods ELECTRICAL TRANSMISSION ENGINEER-RECEPTIONIST DOCTOR'S OFFICE [address] [place] [address] PCP - General Family Medicine 11/12/22 Antwan Woodruff MD [address] [place] [address] 08108 Fellow Gastroenterology 04/22/17 Don Moya MD [address] [place] [address] 36304 Physician Orthopaedic Surgery 09/04/20 Nathaniel Ovalle MD [address] [place] [address] 93248 Physician Pain Management 09/04/20 Lianne Mayo DO [address] [place] [address] [place] [address] Resident Dermatology 09/04/20 Karlee Sanchez MD [address] [place] [address] [place] [address] Physician Dermatology 05/31/22 Regina Bright MD [address] [place] [address] 95821 Physician Dermatology 08/02/22 Certified Physical Therapist Assistant Relationship Specialty Start Date End Date ChuckTonyyELYSIAN-RECEPTIONIST DOCTOR'S OFFICE [address] [place] [address] PCP - General Family Medicine 11/12/22 Antwan Woodruff MD [address] [place] [address] 56770 Fellow Gastroenterology 04/22/17 Don Moya MD [address] [place] [address] 50470 Physician Orthopaedic Surgery 09/04/20 Nathaniel Ovalle MD [address] [place] [address] 65864 Physician Pain Management 09/04/20 Lianne Mayo DO [address] [place] [address] [place] [address] Resident Dermatology 09/04/20 Karlee Sanchez MD [address] [place] [address] [place] [address] Physician Dermatology 05/31/22 Regina Bright MD [address] [place] [address] 11763 Physician Dermatology 08/02/22 Certified Physical Therapist Assistant Relationship Specialty Start Date End Date Chuck LeopoldoELYSIAN-RECEPTIONIST DOCTOR'S OFFICE [address] [place] [address] PCP - General Family Medicine 11/12/22 Antwan Woodruff MD [address] [place] [address] 22310 Fellow Gastroenterology 04/22/17 Don Moya MD [address] [place] [address] 07361 Physician Orthopaedic Surgery 09/04/20 Nathaniel Ovalle MD [address] [place] [address] 35048 Physician Pain Management 09/04/20 Lianne Mayo DO [address] [place] [address] [place] [address] Resident Dermatology 09/04/20 Karlee Sanchez MD [address] [place] [address] [place] [address] Physician Dermatology 05/31/22 Regina Bright MD [address] [place] [address] 44867 Physician Dermatology 08/02/22 Certified Physical Therapist Assistant Relationship Specialty Start Date End Date Leopoldo Woods APRN-RECEPTIONIST DOCTOR'S OFFICE [address] [place] [address] PCP - General Family Medicine 11/12/22 Antwan Woodruff MD [address] [place] [address] 32781 Fellow Gastroenterology 04/22/17 Don Moya MD [address] [place] [address] 11873 Physician Orthopaedic Surgery 09/04/20 Nathaniel Ovalle MD [address] [place] [address] 15523 Physician Pain Management 09/04/20 Lianne Mayo DO [address] [place] [address] [place] [address] Resident Dermatology 09/04/20 Karlee Sanchez MD [address] [place] [address] [place] [address] Physician Dermatology 05/31/22 Regina Bright MD [address] [place] [address] 35548 Physician Dermatology 08/02/22 Certified Physical Therapist Assistant Relationship Specialty Start Date End Date Leopoldo Woods APRN-RECEPTIONIST DOCTOR'S OFFICE [address] [place] [address] PCP - General Family Medicine 11/12/22 Antwan Woodruff MD [address] [place] [address] 36624 Fellow Gastroenterology 04/22/17 Don Moya MD [address] [place] [address] 95747 Physician Orthopaedic Surgery 09/04/20 Nathaniel Ovalle MD [address] [place] [address] 45384 Physician Pain Management 09/04/20 Lianne Mayo DO [address] [place] [address] [place] [address] Resident Dermatology 09/04/20 Karlee Sanchez MD [address] [place] [address] [place] [address] Physician Dermatology 05/31/22 Regina Bright MD [address] [place] [address] 39500 Physician Dermatology 08/02/22 Certified Physical Therapist Assistant Relationship Specialty Start Date End Date Leopoldo Wodos, ELECTRICAL TRANSMISSION ENGINEER-[address] [address] PCP - General Family Medicine 11/12/22 Antwan Woodruff MD [address] [place] [address] 88732 Fellow Gastroenterology 04/22/17 Don Moya MD [address] [place] [address] 35461 Physician Orthopaedic Surgery 09/04/20 Nathaniel Ovalle MD [address] [place] [address] 70127 Physician Pain Management 09/04/20 Lianne Mayo DO [address] [place] [address] [place] [address] Resident Dermatology 09/04/20 Karlee Sanchez MD [address] [place] [address] [place] [address] Physician Dermatology 05/31/22 Regina Bright MD [address] [place] [address] 08363 Physician Dermatology 08/02/22 Certified Physical Therapist Assistant Relationship Specialty Start Date End Date ChuckTonyyELYSIAN-RECEPTIONIST DOCTOR'S OFFICE [address] [place] [address] 24685 PCP - General Family Medicine 11/12/22 Antwan Woodruff MD [address] [place] [address] 55128 Fellow Gastroenterology 04/22/17 Don Moya MD [address] [place] [address] 80980 Physician Orthopaedic Surgery 09/04/20 Nathaniel Ovalle MD [address] [place] [address] 23370 Physician Pain Management 09/04/20 Lianne Mayo DO [address] [place] [address] [place] [address] Resident Dermatology 09/04/20 Karlee Sanhcez MD [address] [place] [address] [place] [address] Physician Dermatology 05/31/22 Regina Bright MD [address] [place] [address] 35972 Physician Dermatology 08/02/22 Certified Physical Therapist Assistant Relationship Specialty Start Date End Date Leopoldo Woods APRN-RECEPTIONIST DOCTOR'S OFFICE [address] [place] [address] PCP - General Family Medicine 11/12/22 Antwan Woodruff MD [address] [place] [address] 71755 Fellow Gastroenterology 04/22/17 Don Moya MD [address] [place] [address] 50804 Physician Orthopaedic Surgery 09/04/20 Nathaniel Ovalle MD [address] [place] [address] 49756 Physician Pain Management 09/04/20 Lianne Mayo DO [address] [place] [address] [place] [address] Resident Dermatology 09/04/20 Karlee Sanchez MD [address] [place] [address] [place] [address] Physician Dermatology 05/31/22 Regina Bright MD [address] [place] [address] 82046 Physician Dermatology 08/02/22 Certified Physical Therapist Assistant Relationship Specialty Start Date End Date Leopoldo Woods, ELECTRICAL TRANSMISSION ENGINEER-RECEPTIONIST DOCTOR'S OFFICE [address] [place] [address] PCP - General Family Medicine 11/12/22 Antwan Woodruff MD [address] [place] [address] 83485 Fellow Gastroenterology 04/22/17 Don Moya MD [address] [place] [address] 67695 Physician Orthopaedic Surgery 09/04/20 Nathaniel Ovalle MD [address] [place] [address] 20279 Physician Pain Management 09/04/20 Lianne Mayo DO [address] [place] [address] [place] [address] Resident Dermatology 09/04/20 Karlee Sanhcez MD [address] [place] [address] [place] [address] Physician Dermatology 05/31/22 Regina Bright MD [address] [place] [address] 40420 Physician Dermatology 08/02/22 Mason Walls MD [address] [place] [address] 13252 Fellow Gastroenterology 01/03/23 Certified Physical Therapist Assistant Relationship Specialty Start Date End Date Leopoldo Woods, ELECTRICAL TRANSMISSION ENGINEER-RECEPTIONIST DOCTOR'S OFFICE [address] [place] [address] PCP - General Family Medicine 11/12/22 Antwan Woodruff MD [address] [place] [address] 26273 Fellow Gastroenterology 04/22/17 Don Moya MD [address] [place] [address] 85271 Physician Orthopaedic Surgery 09/04/20 Nathaniel Ovalle MD [address] [place] [address] 84641 Physician Pain Management 09/04/20 Lianne Mayo DO [address] [place] [address] [place] [address] Resident Dermatology 09/04/20 Karlee Sanchez MD [address] [place] [address] [place] [address] Physician Dermatology 05/31/22 Regina Bright MD [address] [place] [address] 06955 Physician Dermatology 08/02/22 Mason Walls MD [address] [place] [address] 26120 Fellow Gastroenterology 01/03/23 Certified Physical Therapist Assistant Relationship Specialty Start Date End Date Leopoldo Woods APRN-RECEPTIONIST DOCTOR'S OFFICE [address] [place] [address] PCP - General Family Medicine 11/12/22 Antwan Woodruff MD [address] [place] [address] 47577 Fellow Gastroenterology 04/22/17 Don Moya MD [address] [place] [address] 95653 Physician Orthopaedic Surgery 09/04/20 Nathaniel Ovalle MD [address] [place] [address] 86325 Physician Pain Management 09/04/20 Lianne Mayo DO [address] [place] [address] [place] [address] Resident Dermatology 09/04/20 Karlee Sanchez MD [address] [place] [address] [place] [address] Physician Dermatology 05/31/22 Regina Bright MD [address] [place] [address] 86680 Physician Dermatology 08/02/22 Certified Physical Therapist Assistant Relationship Specialty Start Date End Date Leopoldo Woods APRN-RECEPTIONIST DOCTOR'S OFFICE [address] [place] [address] PCP - General Family Medicine 11/12/22 Antwan Woodruff MD [address] [place] [address] 85120 Fellow Gastroenterology 04/22/17 Don Moya MD [address] [place] [address] 71301 Physician Orthopaedic Surgery 09/04/20 Nathaniel Ovalle MD [address] [place] [address] 58878 Physician Pain Management 09/04/20 Lianne Mayo DO [address] [place] [address] [place] [address] Resident Dermatology 09/04/20 Karlee Sanchez MD [address] [place] [address] [place] [address] Physician Dermatology 05/31/22 Regina Bright MD [address] [place] [address] 91949 Physician Dermatology 08/02/22 Mason Walls MD [address] [place] [address] 86187 Fellow Gastroenterology 01/03/23 Certified Physical Therapist Assistant Relationship Specialty Start Date End Date Leopoldo Woods, ELECTRICAL TRANSMISSION ENGINEER-RECEPTIONIST DOCTOR'S OFFICE [address] [place] [address] PCP - General Family Medicine 11/12/22 Antwan Woodruff MD [address] [place] [address] 74095 Fellow Gastroenterology 04/22/17 Don Moya MD [address] [place] [address] 06059 Physician Orthopaedic Surgery 09/04/20 Nathaniel Ovalle MD [address] [place] [address] 73193 Physician Pain Management 09/04/20 Lianne Mayo DO [address] [place] [address] [place] [address] Resident Dermatology 09/04/20 Karlee Sanchez MD [address] [place] [address] [place] [address] Physician Dermatology 05/31/22 Regina Bright MD [address] [place] [address] 65928 Physician Dermatology 08/02/22 Mason Walls MD [address] [place] [address] 50854 Fellow Gastroenterology 01/03/23 Certified Physical Therapist Assistant Relationship Specialty Start Date End Date Leopoldo Woods, ELECTRICAL TRANSMISSION ENGINEER-RECEPTIONIST DOCTOR'S OFFICE [address] [place] [address] PCP - General Family Medicine 11/12/22 Antwan Woodruff MD [address] [place] [address] 57736 Fellow Gastroenterology 04/22/17 Don Moya MD [address] [place] [address] 59752 Physician Orthopaedic Surgery 09/04/20 Nathaniel Ovalle MD [address] [place] [address] 93564 Physician Pain Management 09/04/20 Lianne Mayo DO [address] [place] [address] [place] [address] Resident Dermatology 09/04/20 Karlee Sanchez MD [address] [place] [address] [place] [address] Physician Dermatology 05/31/22 Regina Bright MD [address] [place] [address] 39066 Physician Dermatology 08/02/22 Mason Walls MD [address] [place] [address] 11653 Fellow Gastroenterology 01/03/23 Certified Physical Therapist Assistant Relationship Specialty Start Date End Date Leopoldo WoodsELYSIAN-RECEPTIONIST DOCTOR'S OFFICE [address] [place] [address] PCP - General Family Medicine 11/12/22 Antwan Woodruff MD [address] [place] [address] 40992 Fellow Gastroenterology 04/22/17 Don Moya MD [address] [place] [address] 00215 Physician Orthopaedic Surgery 09/04/20 Nathaniel Ovalle MD [address] [place] [address] 19241 Physician Pain Management 09/04/20 Lianne Mayo DO [address] [place] [address] [place] [address] Resident Dermatology 09/04/20 Karlee Sanchez MD [address] [place] [address] [place] [address] Physician Dermatology 05/31/22 Regina Bright MD [address] [place] [address] 97647 Physician Dermatology 08/02/22 Mason Walls MD [address] [place] [address] 49643 Fellow Gastroenterology 01/03/23 Joseph Alfredo ming [address] [place] [address] 72008 Pharmacist 03/06/23 Ronit Zapata CPhT Tech Pharmacology and Toxicology 03/06/23 Maya Andrews CPhT [address] [place] [address] [place] [address] Medication Internal Affairs Commander Pharmacology and Toxicology 03/06/23 Certified Physical Therapist Assistant Relationship Specialty Start Date End Date Leopoldo Woods APRN-RECEPTIONIST DOCTOR'S OFFICE [address] [place] [address] PCP - General Family Medicine 11/12/22 Antwan Woodruff MD [address] [place] [address] 95810 Fellow Gastroenterology 04/22/17 Don Moya MD [address] [place] [address] 76362 Physician Orthopaedic Surgery 09/04/20 Nathaniel Ovalle MD [address] [place] [address] 26530 Physician Pain Management 09/04/20 Lianne Mayo DO [address] [place] [address] [place] [address] Resident Dermatology 09/04/20 Karlee Sanchez MD [address] [place] [address] [place] [address] Physician Dermatology 05/31/22 Regina Bright MD [address] [place] [address] 04293 Physician Dermatology 08/02/22 Mason Walls MD [address] [place] [address] 19942 Fellow Gastroenterology 01/03/23 Joseph Alfredo, [address] [address] Pharmacist 03/06/23 05/12/23 Ronit Zapata, [facility] Tech Pharmacology and Toxicology 03/06/23 05/12/[address] Andrews [address] [place] [address] Medication Internal Affairs Commander Pharmacology and Toxicology 03/06/23 05/12/23 Certified Physical Therapist Assistant Relationship Specialty Start Date End Date Leopoldo Woods APRN-RECEPTIONIST DOCTOR'S OFFICE [address] [place], [place] [id number] PCP - General Family Medicine 11/12/22 Antwan Woodruff MD [address] [place], [place] [address] Fellow Gastroenterology 04/22/17 Don Moya MD [address] [place], [place] [address] Physician Orthopaedic Surgery 09/04/20 Nathaniel Ovalle MD [address] [place], [place] [address] Physician Pain Management 09/04/20 Lianne Mayo DO [address] [place] [address] [place] [address] Resident Dermatology 09/04/20 Karlee Sanchez MD [address] [place] [address] [address] [place] [id number] Physician Dermatology 05/31/22 Regina Bright MD [address] [place], [place] [address] Physician Dermatology 08/02/22 Mason Walls MD [address] [place] [address] 03189 Fellow Gastroenterology 01/03/23 Joseph Alfredo, [address] [address] Pharmacist 03/06/23 05/12/23 Ronit Zapata [facility] Pharmacology and Toxicology 03/06/23 05/12/23 Maya Andrews CPhT [address] [place] [address] [place] [address] Medication Internal Affairs Commander Pharmacology and Toxicology 03/06/23 05/12/23 Certified Physical Therapist Assistant Relationship Specialty Start Date End Date Leopoldo Woods APRN-RECEPTIONIST DOCTOR'S OFFICE [address] [place] [address] PCP - General Family Medicine 11/12/22 Antwan Woodruff MD [address] [place] [address] 13561 Fellow Gastroenterology 04/22/17 Don Moya MD [address] [place] [address] 85194 Physician Orthopaedic Surgery 09/04/20 Nathaniel Ovalle MD [address] [place] [address] 22460 Physician Pain Management 09/04/20 Lianne Mayo DO [address] [place] [address] [place] [address] Resident Dermatology 09/04/20 Karlee Sanchez MD [address] [place] [address] [place] [address] Physician Dermatology 05/31/22 Regina Bright MD [address] [place] [address]6983 Physician Dermatology 08/02/22 Mason Walls MD [address] [place] [address] 84379 Fellow Gastroenterology 01/03/23 Certified Physical Therapist Assistant Relationship Specialty Start Date End Date Leopoldo Woods APRN-RECEPTIONIST DOCTOR'S OFFICE [address] [place], [place] [address] PCP - General Family Medicine 11/12/22 Antwan Woodruff MD [address] [place] [address] 46202 Fellow Gastroenterology 04/22/17 Don Moya MD [address] [place] [address] 28434 Physician Orthopaedic Surgery 09/04/20 Nathaniel Ovalle MD [address] [place] [address] 66635 Physician Pain Management 09/04/20 Lianne Mayo DO [address] [place] [address] [place] [address] Resident Dermatology 09/04/20 Karlee Sanchez MD [address] [place] [address] [address] [place] [id number] Physician Dermatology 05/31/22 Regina Bright MD [address] [place], [place] [address] Physician Dermatology 08/02/22 Mason Walls MD [address] [place] [address] 31289 Fellow Gastroenterology 01/03/23 Joseph Alfredo, CHARLENE[address] [address] Pharmacist 07/22/23 Ronit Zapata facility supervisor Tech Pharmacology and Toxicology 07/22/23 Maya Andrews CPhT [address] [place] [address] [place] [address] Medication Internal Affairs Commander Pharmacology and Toxicology 07/22/23 Certified Physical Therapist Assistant Relationship Specialty Start Date End Date Leopoldo Woods APRN-RECEPTIONIST DOCTOR'S OFFICE [address] [place], [place] [address] PCP - General Family Medicine 11/12/22 Antwan Woodruff MD [address] [place] [address] 89396 Fellow Gastroenterology 04/22/17 Don Moya MD [address] [place] [address] 06889 Physician Orthopaedic Surgery 09/04/20 Nathaniel Ovalle MD [address] [place] [address] 77550 Physician Pain Management 09/04/20 Lianne Mayo DO [address] [place] [address] [place] [address] Resident Dermatology 09/04/20 Karlee Sanchez MD [address] [place] [address] [address] [place] [id number] Physician Dermatology 05/31/22 Regina Bright MD [address] [place], [place] [address] Physician Dermatology 08/02/22 Mason Walls MD [address] [place] [address] 00168 Fellow Gastroenterology 01/03/23 Joseph Alfredo, CHARLENE[address] [address] Pharmacist 07/22/23 Ronit Zapata facility supervisor Tech Pharmacology and Toxicology 07/22/23 Maya Andrews CPhT [address] [place] [address] [place] [address] Medication Internal Affairs Commander Pharmacology and Toxicology 07/22/23 Certified Physical Therapist Assistant Relationship Specialty Start Date End Date Leopoldo Woods APRN-RECEPTIONIST DOCTOR'S OFFICE [address] [place], [place] [address] PCP - General Family Medicine 11/12/22 Antwan Woodruff MD [address] [place] [address] 50121 Fellow Gastroenterology 04/22/17 Don Moya MD [address] [place] [address] 00874 Physician Orthopaedic Surgery 09/04/20 Nathaniel Ovalle MD [address] [place] [address] 24060 Physician Pain Management 09/04/20 Lianne Mayo DO [address] [place] [address] [place] [address] Resident Dermatology 09/04/20 Karlee Sanchez MD [address] [place] [address] [address] [place] [id number] Physician Dermatology 05/31/22 Regina Bright MD [address] [place], [place] [address] Physician Dermatology 08/02/22 Mason Walls MD [address] [place] [address] 68777 Fellow Gastroenterology 01/03/23 Joseph Alfredo, CHARLENE[address] [address] Pharmacist 07/22/23 Ronit Zapata facility supervisor Tech Pharmacology and Toxicology 07/22/23 Maya Andrews CPhT [address] [place] [address] [place] [address] Medication Internal Affairs Commander Pharmacology and Toxicology 07/22/23 Certified Physical Therapist Assistant Relationship Specialty Start Date End Date Leopoldo Woods APRN-RECEPTIONIST DOCTOR'S OFFICE [address] [place], [place] [address] PCP - General Family Medicine 11/12/22 Antwan Woodruff MD [address] [place] [address] 30963 Fellow Gastroenterology 04/22/17 Don Moya MD [address] [place] [address] 75725 Physician Orthopaedic Surgery 09/04/20 Nathaniel Ovalle MD [address] [place] [address] 85186 Physician Pain Management 09/04/20 Lianne Mayo DO [address] [place] [address] [place] [address] Resident Dermatology 09/04/20 Karlee Sanchez MD [address] [place] [address] [place] [address] Physician Dermatology 05/31/22 Regina Bright MD [address] [place] [address] 80898 Physician Dermatology 08/02/22 Mason Walls MD [address] [place] [address] 96695 Fellow Gastroenterology 01/03/23 Certified Physical Therapist Assistant Relationship Specialty Start Date End Date Leopoldo Woods APRN-RECEPTIONIST DOCTOR'S OFFICE [facility] [place] [address] PCP - General Family Medicine 11/12/22 Antwan Woodruff MD [address] [place] [address]7628 Fellow Gastroenterology 04/22/17 Don Moya MD [address] [place], [place] [address] Physician Orthopaedic Surgery 09/04/20 Nathaniel Ovalle MD [address] [place] [address] Physician Pain Management 09/04/20 Lianne Mayo DO [address] [place] [address] [address] [place] [id number] Resident Dermatology 09/04/20 Karlee Sanchez MD [address] [place] [address] [place] [address] Physician Dermatology 05/31/22 Regina Bright MD [address] [place] [address] Physician Dermatology 08/02/22 Mason Walls MD [address] [place], [place] [address] Fellow Gastroenterology 01/03/23 Joseph Alfredo [address] [address] Pharmacist 07/22/23 Ronit Zapata [facility] Tech Pharmacology and Toxicology 07/22/23 Maya Andrews [address] [place] [id number] Medication Internal Affairs Commander Pharmacology and Toxicology 07/22/23 Shira Grady DO [address] [place] [address] [place] [address] Physician Dermatology 08/01/23 Certified Physical Therapist Assistant Relationship Specialty Start Date End Date Leopoldo Woods APRN-RECEPTIONIST DOCTOR'S OFFICE [facility] [place] [address] PCP - General Family Medicine 11/12/22 Antwan Woodruff MD [address] [place] [address] 54105 Fellow Gastroenterology 04/22/17 Don Moya MD [address] [place] [address] 92725 Physician Orthopaedic Surgery 09/04/20 Nathaniel Ovalle MD [address] [place] [address] 37621 Physician Pain Management 09/04/20 Lianne Mayo DO [address] [place] [address] [place] [address] Resident Dermatology 09/04/20 Karlee Sanchez MD [address] [place] [address] [address] [place] [id number] Physician Dermatology 05/31/22 Regina Bright MD [address] [place] [address] Physician Dermatology 08/02/22 Mason Walls MD [address] [place] [address] 16619 Fellow Gastroenterology 01/03/23 Joseph Alfredo [address] [address] Pharmacist 07/22/23 Ronit Zapata CPhT Tech Pharmacology and Toxicology 07/22/23 Maya Andrews CPhT [address] [place] [address] [place] [address] Medication Internal Affairs Commander Pharmacology and Toxicology 07/22/23 Shira Grady DO [address] [place] [address] [place] [address] Physician Dermatology 08/01/23 Certified Physical Therapist Assistant Relationship Specialty Start Date End Date Leopoldo Woods APRN-RECEPTIONIST DOCTOR'S OFFICE [address] [place] [address] PCP - General Family Medicine 11/12/22 Antwan Woodruff MD [address] [place] [address] 67852 Fellow Gastroenterology 04/22/17 Don Moya MD [address] [place] [address] 71746 Physician Orthopaedic Surgery 09/04/20 Nathaniel Ovalle MD [address] [place] [address] Physician Pain Management 09/04/20 Lianne Mayo DO [address] [place] [address] [address] [place] [id number] Resident Dermatology 09/04/20 Karlee Sanchez MD [address] [place] [address] [address] [place] [id number] Physician Dermatology 05/31/22 Regina Bright MD [address] [place] [address] Physician Dermatology 08/02/22 Mason Walls MD [address] [place] [address] 75033 Fellow Gastroenterology 01/03/23 Joseph Alfredo, [address] [address] Pharmacist 07/22/23 Ronit Zapata CPhT Tech Pharmacology and Toxicology 07/22/23 Maya Andrews CPhT [address] [place] [address] [place] [address] Medication Internal Affairs Commander Pharmacology and Toxicology 07/22/23 Shira Grady DO [address] [place] [address] [place] [address] Physician Dermatology 08/01/23 Certified Physical Therapist Assistant Relationship Specialty Start Date End Date Leopoldo Woods APRN-RECEPTIONIST DOCTOR'S OFFICE [address] [place] [address] PCP - General Family Medicine 11/12/22 Antwan Woodruff MD [address] [place] [address] 56361 Fellow Gastroenterology 04/22/17 Don Moya MD [address] [place] [address] 29572 Physician Orthopaedic Surgery 09/04/20 Nathaniel Ovalle MD [address] [place] [address] 80246 Physician Pain Management 09/04/20 Lianne Mayo DO [address] [place] [address] [place] [address] Resident Dermatology 09/04/20 Karlee Sanchez MD [address] [place] [address] [place] [address] Physician Dermatology 05/31/22 Regina Bright MD [address] [place] [address] 90075 Physician Dermatology 08/02/22 Mason Walls MD [address] [place] [address] 96572 Fellow Gastroenterology 01/03/23 Joseph Alfredo, [address] [address] Pharmacist 07/22/23 Ronit Zapata CPhT Tech Pharmacology and Toxicology 07/22/23 Maya Andrews CPhT [address] [place] [address] [address] [place] [phone] Medication Internal Affairs Commander Pharmacology and Toxicology 07/22/23 Shira Grady DO [address] [place] [address] [address] [place] [phone] Physician Dermatology 08/01/23 Certified Physical Therapist Assistant Relationship Specialty Start Date End Date Leopoldo Woods APRN-RECEPTIONIST DOCTOR'S OFFICE [address] [place] [address] PCP - General Family Medicine 11/12/22 Antwan Woodruff MD [address] [place], [place] [address] Fellow Gastroenterology 04/22/17 Don Moya MD [address] [place] [address] Physician Orthopaedic Surgery 09/04/20 Nathaniel Ovalle MD [address] [place], [place] [address] Physician Pain Management 09/04/20 Lianne Mayo DO [address] [place] [address] [address] [place] [id number] Resident Dermatology 09/04/20 Karlee Sanchez MD [address] [place] [address] [address] [place] [phone] Physician Dermatology 05/31/22 Regina Bright MD [address] [place] [address]35 Physician Dermatology 08/02/22 Mason Walls MD [address] [place] [address] 64564 Fellow Gastroenterology 01/03/23 Joseph Alfredo, [address] [address] Pharmacist 07/22/23 Ronit Zapata, [facility] Tech Pharmacology and Toxicology 07/22/23 Maya Andrews, [address] [place] [address] Medication Internal Affairs Commander Pharmacology and Toxicology 07/22/23 Shira Grady DO [address] [place] [address] [address] [place] [phone] Physician Dermatology 08/01/23 Certified Physical Therapist Assistant Relationship Specialty Start Date End Date Leopoldo Woods APRN-RECEPTIONIST DOCTOR'S OFFICE [address] [place], [place] [address] PCP - General Family Medicine 11/12/22 Antwan Woodruff MD [address] [place] [address] Fellow Gastroenterology 04/22/17 Don Moya MD [address] [place] [address] Physician Orthopaedic Surgery 09/04/20 Nathaniel Ovalle MD [address] [place] [address] Physician Pain Management 09/04/20 Lianne Mayo DO [address] [place] [address] [address] [place] [phone] Resident Dermatology 09/04/20 Karlee Sanchez MD [address] [place] [address] [place] [address] Physician Dermatology 05/31/22 Regina Bright MD [address] [place] [address] Physician Dermatology 08/02/22 Mason Walls MD [address] [place] [address] 84667 Fellow Gastroenterology 01/03/23 Joseph Alfredo, [address] [address] Pharmacist 07/22/23 08/28/23 Ronit Zapata, [facility] Tech Pharmacology and Toxicology 07/22/23 08/28/23 Maya Andrews, [address] [place] [address] Medication Internal Affairs Commander Pharmacology and Toxicology 07/22/23 08/28/23 Shira Grady DO [address] [place] [address] [place] [address] Physician Dermatology 08/01/23 Certified Physical Therapist Assistant Relationship Specialty Start Date End Date Leopoldo Woods, DAVID-RECEPTIONIST DOCTOR'S OFFICE [address] [place], [place] [address] PCP - General Family Medicine 11/12/22 Antwan Woodruff MD [address] [place] [address] 63882 Fellow Gastroenterology 04/22/17 Don Moya MD [address] [place] [address] 77869 Physician Orthopaedic Surgery 09/04/20 Nathaniel Ovalle MD [address] [place] [address]16 Physician Pain Management 09/04/20 Lianne Mayo DO [address] [place] [address] [place] [address] Resident Dermatology 09/04/20 Karlee Sanchez MD [address] [place] [address] [place] [address] Physician Dermatology 05/31/22 Regina Bright MD [address] [place] [address] Physician Dermatology 08/02/22 Mason Walls MD [address] [place] [address] 600[address] Fellow Gastroenterology 01/03/23 Shira Grady DO [address] [place] [address] [place] [address] Physician Dermatology 08/01/23 Mack Vega MD [address] [place] [address] Fellow Gastroenterology 09/05/23 Scheduled Active and Recently Administ ered Medications (unrecognized section and content) Medication Order 11/10/2022 11/11/2022 11/12/2022 acetaminophen (TYLENOL) tablet (COMPLETED) 1,000 mg, Oral, ONCE, 1 dose, On Thu11/12/22 at 1999 1950 (Given - Provid er: Elen Morris RN) ondansetron (ZOFRAN-ODT) disintegrating tablet (COMPLETED) 4 mg, Oral, STAT, 1 dose, On Thu11/12/22 at 1999 1950 (Given - Provid er: Elen Morris RN) ondansetron (ZOFRAN-ODT) disintegrating tablet 4 mg, Oral, ONCE, 1 dose, On Thu11/12/22 at 2029 2029 (Hold/Not Given - Provider: Elen Morris RN - Reason: Not indicated) Scheduled Medication Order 08/06/2023 08/07/2023 08/08/2023 aluminum & magnesium hydroxide-simethicone (MAALOX ES) 400-400-40 MG/5ML oral suspension (COMPLETED) 30 mL, Oral, STAT, 1 dose, On 08/08/23 at 2007 2000 (Given - Provid er: Romana Souza RN) esomeprazole (NEXIUM) 40 MG injection (COMPLETED) 40 mg, Intravenous Push, ONCE, 1 dose, On 08/08/23 at 1429 1407 (Given - Provid er: Mary Ko RN) Famotidine (PF) (PEPCID) 20 MG/2ML injection (COMPLETED) 20 mg, Intravenous Push, STAT, 1 dose, On 08/08/23 at 1651 1625 (Given - Provid er: Naida Grey RN) HYDROmorphone HCl PF (DILAUDID) 1 MG/ML injection (COMPLETED) 1 mg, Intravenous Push, STAT, 1 dose, On 08/08/23 at 1429 1407 (Given - Provid er: Mary Ko RN) iohexol (OMNIPAQUE) 350 MG/ML injection (COMPLETED) 100 mL, Intravenous Push, Once at Radiology exam, 1 dose, Starting on 08/08/23 at 1856, Until 08/08/23 at 1846, Imaging Protocol Orders 1846 (Bolus given - Provider: Marge Rucker) ipratropium-albuterol (DUO-NEB) 0.5-2.5 (3) MG/3ML nebulizer solution (COMPLETED) 3 mL, Nebulization, STAT, 1 dose, On 08/08/23 at 1632 1605 (Given - Provid er: Carisa Howard RN) lidocaine viscous 2 % solution (COMPLETED) 10 mL, Mouth/Throat, STAT, 1 dose, On 08/08/23 at 2007 1999 (Given - Provid er: Romana Souza RN) ondansetron (ZOFRAN) 4 MG/2ML injection (COMPLETED) 4 mg, Intravenous Push, STAT, 1 dose, On 08/08/23 at 1503 1438 (Given - Provid er: Mary Ko RN) ondansetron (ZOFRAN) 4 MG/2ML injection (COMPLETED) 4 mg, Intravenous Push, STAT, 1 dose, On 08/08/23 at 1651 1625 (Given - Provid er: Naida Grey RN) sodium chloride 0.9 % iv bolus (COMPLETED) 1,000 mL, at 9,999 mL/hr, Intravenous, FLUID BOLUS, 1 dose, On 08/08/23 at 1446 1425 (IV New Bag - P rovider: Mary Ko RN)1632 (IV Stop - Provider: Carisa Howard RN) sodium chloride 0.9 % iv bolus (COMPLETED) 1,000 mL, at 9,999 mL/hr, Intravenous, FLUID BOLUS, 1 dose, On 08/08/23 at 1651 1625 (IV New Bag - P rovider: Naida Grey RN)2008 (IV Stop - Provider: Romana Souza RN) sucralfate (CARAFATE) tablet (COMPLETED) 1 g, Oral, STAT, 1 dose, On 08/08/23 at 1451 1431 (Given - Provid er: Mary Ko RN) FOR RECORDS PERTAINING TO PATIENTS WHO ARE OR HAVE BEEN ENROLLED IN A CHEMICAL DEPENDENCY/SUBSTANCEABUSE PROGRAM, SOME INFORMATION MAY BE OMITTED. This clinical summary was aggregated from multiple sources. Caution should be exercised in using it in the provision of clinical care. This summary normalizes information from multiple sources, and as a consequence, information in this document may materially change the coding, format and clinical context of patient data. In addition, data may be omitted in some cases. CLINICAL DECISIONS SHOULD BE BASED ON THE PRIMARY CLINICAL RECORDS. [facility] [facility]. provides no warranty or guarantee of the accuracy or completeness of information in this document.
--- NOTE | 2024-04-18 06:44 | XR_ITS ---
[address] [address] Patient Name: ANALIA MUSE MRN: [id number] date: 1975 Sex: F Assigned Patient Location: MRI Current Patient Location: MRI Accession/Order Number: [id number] Exam Date: 04/18/2024 08:00 Report Date: 04/18/2024 08:51 At the request of: NON-STAFF PHYSICIAN Procedure: XR DEXA axial skeleton EXAMINATION: XR DEXA axial skeleton HISTORY: Osteopenia Lumbar Spine M85.88 COMPARISON: No relevant comparison available. TECHNIQUE: Dual-energy X-ray absorptiometry (DXA) was performed. FINDINGS: SPINE ANALYSIS: Average bone mineral density is 0.837 g/cm2. T-score (standard deviation relative to young adult mean): -2.9 . HIP ANALYSIS: Lowest bone mineral density is within the femoral neck, 0.686 g/cm2. T-score (standard deviation relative to young adult mean): -2.5 . XR/XR DEXA axial skeleton IMPRESSION: [employer] Classification: Osteoporosis - High Fracture Risk FRAX: Electronically authenticated by: HEIKE ORTEGA Date: 04/18/2024 08:51
--- NOTE | 2024-04-18 06:44 | MR_ITS ---
The [address] [address] Patient Name: ANALIA MUSE MRN: [id number] date: 1975 Sex: F Assigned Patient Location: MRI Current Patient Location: MRI Accession/Order Number: [id number] Exam Date: 04/18/2024 06:55 Report Date: 04/18/2024 10:16 At the request of: NON-STAFF PHYSICIAN Procedure: MR lumbar spine wo con MR lumbar spine wo con, 04/18/2024 6:55 AM EDT INDICATION: Lumbar Degenerative Disc Disease M51.36 COMPARISON: Prior x-ray of lumbar spine dated 04/04/2024 TECHNIQUE: Multiplanar, multisequential MRI images of lumbar spine were obtained without contrast. FINDINGS: For dictation purposes, the lowest complete disc space in the lumbar spine considered as L5-S1. There is loss of normal physiologic lumbar lordosis. The vertebral height is preserved. The conus medullaris is at the level of L1. No signal abnormality within the visualized spinal cord is noted. No neural foraminal narrowing or canal stenoses at the level of T12-L1 and L1-L2 is noted. At the level of L2-L3, there are disc bulge with mild bilateral neuroforaminal narrowing and no canal stenosis. At the level of L3-4, there are disc bulge with mild bilateral neuroforaminal narrowing and no canal stenosis. At the level of L4-5, there are disc bulge with mild to moderate bilateral neuroforaminal narrowing and no canal stenosis. At the level of L5-S1, there are disc bulge with mild bilateral neuroforaminal narrowing and no canal stenosis. The paraspinal muscles are unremarkable. MR/MR lumbar spine wo con IMPRESSION: Mild degenerative changes of lumbar spine in particular at L4-5. Electronically authenticated by: DAKOTAH JIMÉNEZ Date: 04/18/2024 10:16
== END 2024-04-18 06:39 | disposition home or self-care (01) ==
LOC: MRI 06:38
DX: M51.36 Other intervertebral disc degeneration, lumbar region (principal); Z90.710 Acquired absence of both cervix and uterus; Z90.722 Acquired absence of ovaries, bilateral; Z90.79 Acquired absence of other genital organ(s); M85.88 Other specified disorders of bone density and structure, other site
CPT/HCPCS: 72148; 77080

== ENCOUNTER 2024-07-01 10:35 | Outpatient (OUT) | payer MEDICARE, SELFPAY ==
--- NOTE | 2024-07-01 | XR_ITS ---
The [address] [address] Patient Name: ANALIA MUSE MRN: [id number] date: 1975 Sex: F Assigned Patient Location: Current Patient Location: Accession/Order Number: [id number] Exam Date: 07/01/2024 10:48 Report Date: 07/02/2024 05:50 At the request of: GABRIEL FERREIRA Procedure: XR lumbar spine 2-3V EXAMINATION: XR lumbar spine 2-3V HISTORY: LUMBAR SPINE PAIN COMPARISON: XR lumbar spine 04/04/2024 FINDINGS: BONES: No fracture, spondylolisthesis, or change in alignment during flexion and extension. Mild degenerative endplate changes at L1-L2. Mild degenerative facet arthropathy L4-L5, L5-S1. DISC SPACES: Slight disc space narrowing L1-L2, L5-S1. PARASPINOUS: Negative. No paraspinous abnormality is seen. OTHER: Negative. XR/XR lumbar spine 2-3V IMPRESSION: 1. No appreciable acute abnormality. 2. Grossly stable mild degenerative changes. 3. No change in alignment during flexion and extension. Electronically authenticated by: HEIKE ORTEGA Date: 07/02/2024 05:50
--- OUTSIDE RECORDS SUMMARY | 2024-07-01 10:52 | XMS_ITS | CCD ---
Author Organization [facility] Inform ion Partnership [facility] Care Team Providers Care Force Dispatcher Name Role Phone AIDE LOMELI Primary Care Unavailable CINDY COON Admitting Unavailable CINDY COON Attending Unavailable Antwan Woodruff MD Unavailable Radha Negrete MD Primary Care Provider Don Moya MD Unavailable Nathaniel Ovalle MD Unavailable [phone] KuLianne gutierrez DO Unavailable Karlee Sanchez MD Unavailable Antwan Woodruff MD Unavailable Radha Negrete MD Primary Care Provider Don Moya MD Unavailable Nathaniel Ovalle MD Unavailable KuLianne gutierrez DO Unavailable [phone] Karlee Sanchez MD Unavailable Regina Bright MD Unavailable [phone] Leopoldo oDuglas Primary Care Provider Antwan Woodruff MD Unavailable Don Moya MD Unavailable Nathaniel Ovalle MD Unavailable [phone] KuLianne gutierrez DO Unavailable Karlee Sanchez MD Unavailable Regina Bright MD Unavailable Chuck [facility], Leopoldo Primary Care Provider [phone] Mason Walls MD Unavailable [facility], Joseph Unavailable Unavailable Zapata grocery clerk checking, Ronit Unavailable Unavailable Darryl grocery clerk checking, Maya Unavailable Unavailable Chuck [facility], Leopoldo Primary Care Provider [facility], Joseph Unavailable Unavailable Zapata grocery clerk checking, Ronit Unavailable Unavailable Darryl grocery clerk checking, Maya Unavailable Unavailable Mason Walls MD Unavailable [phone] [facility], Joseph Unavailable Unavailable Zapata grocery clerk checking, Ronit Unavailable Unavailable Darryl grocery clerk checking, Maya Unavailable Unavailable Demidova DO, Shira Unavailable [facility], Joseph Unavailable Unavailable Zapata grocery clerk checking, Ronit Unavailable Unavailable Darryl grocery clerk checking, Maya Unavailable Unavailable Mack Vega MD Unavailable [facility], LEOPOLDO L Primary Care Physician Richard Cono Attending Unavailable Richard Coon Admitting Unavailable Chuck, Leopoldo L Primary Care Unavailable Windnagel, Azul Referring Unavailable Windnagel, Azul Attending Unavailable Windnagel, Azul Admitting Unavailable CHUCK, LEOPOLDO Primary Care Unavailable DEULEY, SUSAN Admitting Unavailable DEULEToya, SUSAN Attending Unavailable ELVA, SUSAN Consulting Unavailable Griffin CAVANAUGH, Don Marquez Unavailable [phone] Nathaniel Ovalle MD Unavailable [phone] Mason Walls MD Unavailable [phone] PAULINA JONES Attending Unavailable CHUCK, LEOPOLDO Primary Care Unavailable PROVIDER, UNKNOWN Admitting Unavailable PROVIDER, UNKNOWN Attending Unavailable CHUCK, LEOPOLDO Primary Care Unavailable PROVIDER, UNKNOWN Admitting Unavailable PROVIDER, UNKNOWN Admitting Unavailable PAULINA JONES Referring Unavailable CHUCK, LEOPOLDO Primary Care Unavailable PROVIDER, UNKNOWN Attending Unavailable PROVIDER, UNKNOWN Admitting Unavailable CHUCK, LEOPOLDO Primary Care Unavailable PROVIDER, UNKNOWN Attending Unavailable PROVIDER, UNKNOWN Admitting Unavailable CHUCK, LEOPOLDO Primary Care Unavailable CHUCK, LEOPOLDO Referring Unavailable PROVIDER, UNKNOWN Attending Unavailable Allergies Allergy Classification Reported Allergen(s) Allergy Type Date of Onset Reaction(s) Facility (3 sources) Morphine; Translations: [morphine] Drug Allergy 4 [facility] Repository (3 sources) Penicillins; Translations: [PENICILLINS] Drug allergy (disorder) 3 Rash [facility] Repository (2 sources) Ketorolac; Translations: [KETOROLAC TROMETHAMINE] Drug Allergy 6 Vomiting [facility] (20 sources) Morphine; Translations: [morphine] Drug Allergy 6 Confusion [facility] Work Phone: (20 sources) Naproxen; Translations: [naproxen] Drug Allergy 8 Upset Stomach [facility] (20 sources) traMADol; Translations: [tramadol] Drug Allergy 7 Upset Stomach [facility] Work Phone: (20 sources) Ketorolac trometamol Propensity to adverse reactions to drug 6 Vomiting [facility] (20 sources) Penicillins Propensity to adverse reactions to drug 6 Rash [facility] (2 sources) Penicillin; Translations: [penicillin] Drug Allergy rash [facility] (2 sources) Ketorolac Drug Allergy 4 [facility] Repository (2 sources) Morphine Drug Allergy 4 [facility] Repository (2 sources) Penicillins Drug allergy (disorder) 4 [facility] Repository (2 sources) traMADol Drug Allergy 4 [facility] Repository (1 source) Naproxen; Translations: [Naprosyn] Drug Allergy [facility] Repository Medications Current Medications Medication [...] 2 05/26/2022 08/13/2022 Discontinued (Duplicate (*won't e-cancel)) [id number] 200 actuat albuterol 0.09 mg/actuat metered dose inhaler (20 sources) beta2-Adrenergic Agonist Start: 08-18-2016 albuterol (PROVENTIL HFA) inhaler 90 mcg/inh Inhale 2 Puffs. 08/18/2016 Active atorvastatin 20 mg oral tablet (20 sources) HMG-CoA Reductase Inhibitor take 1 tablet by mouth once daily atorvastatin (LIPITOR) 20 MG tablet Take 20 mg by mouth daily. Active calcipotriene 0.62102 mg/mg topical ointment (20 sources) Vitamin D [...] hands and feet 60 g 3 07/21/2023 Active DULoxetine 30 mg delayed release oral capsule (6 sources) Serotonin and Norepinephrine Reuptake Inhibitor Start: 04-07-2023 take 1 capsule by mouth once daily duloxetine (CYMBALTA) 30 MG capsule Take 1 Capsule by mouth daily. 04/07/2023 Active 120 actuat fluticasone propionate 0.11 mg/actuat metered dose inhaler (20 sources) Corticosteroid Start: 08-18-2016 fluticasone (FLOVENT HFA) 110 MCG/ACT inhaler Inhale 2 Puffs. 08/18/2016 Active ibuprofen 600 mg oral tablet (6 sources) Nonsteroidal Anti-inflammatory Drug Start: 02-19-2023 ibuprofen (MOTRIN) 600 MG tablet Take 600 mg by mouth. 02/19/2023 Active lamoTRIgine 100 mg oral tablet (20 sources) Mood Stabilizer, Anti-epileptic Agent take 1 tablet by mouth once daily lamotrigine (LAMICTAL) 100 MG tablet Take 100 mg by mouth daily. Active linaclotide 0.145 mg oral capsule (20 [...] 1 12/28/2018 Active Tapinarof 1 % CREA (17 sources) Start: 07-21-2023 Tapinarof 1 % CREA Indications: Psoriasis Apply 2 g externally daily. 60 g 1 07/21/2023 Active tiZANidine 4 mg oral tablet (6 sources) Central alpha-2 Adrenergic Agonist Start: 03-07-2022 take 1 tablet by mouth every six hours as needed tizanidine (ZANAFLEX) 4 MG tablet Take 1 Tablet by mouth every 6 hours as needed. 03/07/2022 Active triamcinolone acetonide 1 mg/ml topical cream (20 sources) Corticosteroid Start: 12-28-2018 triamcinolone 0.1 % cream Apply topically 2 times daily. Apply thin layer to affected area. 30 g 12/28/2018 Active Completed/Discontinued Medications Medication Drug Class(es) [...] Classification Problem Date Documented Da te Episodic/Chronic Acute and chronic tonsillitis (20 sources) Hypertrophy of adenoids; Translations: [Hypertrophy of adenoids] Onset: 7 11-19-2017 Chronic Esophageal disorders (20 sources) Gastroesophageal reflux disease; Translations: [Gastro-esophageal reflux disease without esophagitis] Onset: 6 06-25-2017 Chronic Influenza (1 source) Influenza due to Influenza A virus; Translations: [Influenza due to other identified influenza virus with other respiratory manifestations] Episodic Mood disorders (20 sources) Depressive disorder; Translations: [Depression] Onset: 6 06-25-2017 Chronic Other aftercare (5 sources) Taking high risk medication; Translations: [Other [place] [facility] [place] (current) drug therapy] Episodic Other congenital anomalies [...] mass index (BMI) 28.0-28.9, adult] Episodic Other upper respiratory infections (2 sources) [...] Other Problems Problem Classification Problem Date Documented Da te Episodic/Chronic Abdominal hernia (2 sources) Hiatal hernia; Translations: [Diaphragmatic hernia without obstruction or gangrene] Onset: 08-13-2023 08-13-2023 Episodic Abdominal pain (5 sources) Epigastric pain; Translations: [Epigastric pain] Onset: 08-13-2023 08-08-2023 Episodic Nonspecific chest pain (20 sources) Chest pain; Translations: [Chest pain, unspecified] Onset: 06-24-2017 06-24-2017 Episodic Other aftercare (20 sources) Patient encounter status; Translations: [Encounter for other specified aftercare] Onset: 06-29-2018 06-29-2018 Episodic Other aftercare (1 source) Other [place] [facility] [place] drug therapy; Translations: [Other [place] [facility] [place] ([place]) drug therapy] Onset: 07-21-2023 Episodic Other disorders of stomach and duodenum (20 sources) Indigestion; Translations: [Functional dyspepsia] Onset: 02-07-2016 06-25-2017 Episodic Other nutritional; endocrine; and metabolic disorders (20 sources) H/O: thyroid disorder; Translations: [Personal history of other endocrine, nutritional and metabolic disease] Onset: 03-22-2016 06-25-2017 Episodic Other nutritional; endocrine; and metabolic disorders (1 source) Body mass index (BMI) 29.0-29.9, adult; Translations: [Body mass index (BMI) 29.0-29.9, adult] Onset: 08-13-2023 Episodic Other upper respiratory disease (20 sources) [...] Test Name Value Interpretation Reference Range Facility Telephone Encounteron 2023 Fmd Teacher Authentication Interface Message Text Pt called in. She wanted to let the office know that her insurance is messed up and she will not be scheduling a rheum appt until this is all taken care of. The patient will call back once the insurance is fixed. Pt stated thanks for calling. Normal [facility] Telephone Encounteron 2023 Fmd Teacher Authentication Interface Message Text Please contact pt and schedule with the order in the Active Requests tab. Normal [facility] Consent for Treatmenton 01-29 Consent for Treatment [id number] .00TIFF Normal [facility] MRI Brain w/ + w/o [...] Vueway Contrast amount in ml's: 7.5 Normal [facility] Physician Orderon 02-17-2024 Physician Order [id number] .00TIFF Normal [facility] RAD - MRI Screening Formon 0 02-17-2024 RAD - MRI Screening Form [id number] 1.00TIFF Radha [facility] CT head/brain wo conon 02-07 CT head/brain wo con [place] [id number] CT Scan Report Signed Patient: Heather Johns MR#: [id number] : 1975 Acct:[id number] Age/Sex: 48 / F ADM Date: 02/08/24 Loc: ER Room: Type: [facility] ER Attending Dr: Copies to: Richard Coon MD Ordering Provider: Richard Coon MD Date of Service: 02/08/24 CT/CT head/brain wo con: [facility] CT head/brain wo con 02/08/2024 12:11 PM [...] Cindy Hernandez M.D.02/08/2024 2:00 PM Dictation Location: [place] [address] Transcribed By: [facility] 02/08/24 1400 Dictated By: Cindy Hernandez II, MD 02/08/24 1352 Signed By: 02/08/24 1400 Normal [facility] CT head/brain wo con [address] [address] [address] Scan Report Signed Patient: Heather Johns MR#: [id number] : 1975 Acct:[id number] Age/Sex: 48 / F ADM Date: 02/08/24 Loc: ER Room: Type: [facility] ER Attending Dr: Copies to: Richard Coon MD Ordering Provider: Richard Coon MD Date of Service: 02/08/24 CT/CT head/brain wo con: [facility] CT head/brain wo con 02/08/2024 12:11 PM [...] Cindy Hernandez M.D.02/08/2024 2:00 PM Dictation Location: [place] [address] Transcribed By: [facility] 02/08/24 1400 Dictated By: Cindy Hernandez II, MD 02/08/24 1352 Signed By: 02/08/24 1400 [facility] CT soft tissue neck w christopher 02-08-2024 CT soft tissue neck w [facility] [address] [place] [address] CT Scan Report Signed Patient: Heather Johns MR#: [id number] : 1975 Acct:[id number] Age/Sex: 48 / F ADM Date: 02/08/24 Loc: ER Room: Type: [facility] ER Attending Dr: Copies to: Richard [...] Cindy Hernandez M.D.02/08/2024 2:13 PM Dictation Location: [id number] Transcribed By: ROWAN 02/08/24 1413 Dictated By: Cindy Hernandez II, MD 02/08/24 1400 Signed By: 02/08/24 1413 Normal [facility] CT soft tissue neck w con [facility] [address] [place] [address] [place] [address] CT Scan Report Signed Patient: Heather Johns MR#: [id number] 701 : 1975 Acct:[id number] Age/Sex: 48 / F ADM Date: 02/08/24 Loc: ER Room: Type: [facility] ER Attending Dr: Copies to: Richard [...] Cindy Hernandez M.D.02/08/2024 2:13 PM Dictation Location: [place] [address] Transcribed By: [facility] 02/08/24 1413 Dictated By: Cindy Hernandez II, MD 02/08/24 1400 Signed By: 02/08/24 1413 Normal [facility] Complete Blood Count Auto Di ffon 02-08-2024 Basophils (Bld) [#/Vol] 0.2 10*3/uL Normal 0.0-0.2 [facility] Comment on above: Performed By: #### E SR, MONOTEST, CMP, CBC #### [address] Basophils/100 WBC (Bld) 1.9 % Normal . [facility] Comment on above: Performed By: #### E SR, MONOTEST, CMP, CBC #### [facility] [address] [place] [address] Eosinophils (Bld) [#/Vol] 0.4 10*3/uL Normal 0.0-0.45 [facility] Comment on above: Performed By: #### E SR, MONOTEST, CMP, CBC #### [place] [address] [place] Eosinophils/100 WBC (Bld) 4.5 % Normal . [facility] Comment on above: Performed By: #### E SR, MONOTEST, CMP, CBC #### [facility] [address] Erythrocyte distribution width (RBC) [Ratio] 13.0 % Normal 11.9-15.3 [facility] Comment on above: Performed By: #### E SR, MONOTEST, CMP, CBC #### [place] [address] [place] Hematocrit (Bld) [Volume fraction] 36.7 % Normal 34.0-46.4 [facility] Comment on above: Performed By: #### E SR, MONOTEST, CMP, CBC #### [address] Hemoglobin (Bld) [Mass/Vol] 12.2 g/dL Normal 11.8-15.4 [facility] Comment on above: Performed By: #### E SR, MONOTEST, CMP, CBC #### [address] Lymphocytes (Bld) [#/Vol] 3.1 10*3/uL Normal 1.00-4.8 [facility] Comment on above: Performed By: #### E SR, MONOTEST, CMP, CBC #### [address] Lymphocytes/100 WBC (Bld) 39.4 % Normal . [facility] Comment on above: Performed By: #### E SR, MONOTEST, CMP, CBC #### [address] MCH (RBC) [Entitic mass] 28.5 pg Normal 24.7-34.3 [facility] Comment on above: Performed By: #### E SR, MONOTEST, CMP, CBC #### [address] MCV (RBC) [Entitic vol] 85.5 fL Normal 80-100 [facility] Comment on above: Performed By: #### E SR, MONOTEST, CMP, CBC #### [address] Mean Corpuscular HGB Conc 33.4 g/dL Normal 32.0-35.0 [facility] Comment on above: Performed By: #### E SR, MONOTEST, CMP, CBC #### [address] Monocytes (Bld) [#/Vol] 0.6 10*3/uL Normal 0.0-0.8 [facility] Comment on above: Performed By: #### E SR, MONOTEST, CMP, CBC #### [facility] [address] Monocytes/100 WBC (Bld) 17.33 % Normal 0.00-20.00 [facility] Comment on above: Performed By: #### E SR, MONOTEST, CMP, CBC #### [facility] [address] [place] [address] Monocytes/100 WBC (Bld) 7.7 % Normal . [facility] Comment on above: Performed By: #### E SR, MONOTEST, CMP, CBC #### [address] Neutrophils (Bld) [#/Vol] 3.7 10*3/uL Normal 1.8-7.7 [facility] Comment on above: Performed By: #### E SR, MONOTEST, CMP, CBC #### [address] Neutrophils/100 WBC (Bld) 46.5 % Normal . [facility] Comment on above: Performed By: #### E SR, MONOTEST, CMP, CBC #### [address] NRBC% 0.3 /100{WBC} Normal 0-0.5 [facility] Comment on above: Performed By: #### E SR, MONOTEST, CMP, CBC #### [facility] [address] [place] [address] Platelet mean volume (Bld) [Entitic vol] 8.8 fL Normal 6.3-10.7 [facility] Comment on above: Performed By: #### E SR, MONOTEST, CMP, CBC #### [facility] [address] [place] [address] [place] Platelets (Bld) [#/Vol] 374 10*3/uL Normal 150-450 [facility] Comment on above: Performed By: #### E SR, MONOTEST, CMP, CBC #### [facility] [address] [place] [address] [place] RBC (Bld) [#/Vol] 4.29 10*6/uL Normal 3.60-5.00 [facility] Comment on above: Performed By: #### E SR, MONOTEST, CMP, CBC #### [facility] [address] [place] [address] WBC (Bld) [#/Vol] 7.9 10*3/uL Normal 3.8-11.6 [facility] Comment on above: Performed By: #### E SR, MONOTEST, CMP, CBC #### [facility] [address] [place] [address] Comprehensive Metabolic Pane chely 02-08-2024 Albumin [Mass/Vol] 4.3 g/dL Normal 3.5-5.7 [facility] Comment on above: Performed By: #### E SR, MONOTEST, CMP, CBC #### [facility] [address] [place] [address] Albumin/Globulin [Mass ratio] 1.3 {ratio} Normal [facility] Comment on above: Performed By: #### E SR, MONOTEST, CMP, CBC #### [facility] [address] [place] [address] ALP [Catalytic activity/Vol] 105 U/L High 34-104 [facility] Comment on above: Performed By: #### E SR, MONOTEST, CMP, CBC #### [facility] [address] [place] [address] ALT [Catalytic activity/Vol] 18 U/L Normal 7-52 [facility] Comment on above: Performed By: #### E SR, MONOTEST, CMP, CBC #### [facility] [address] [place] [address] Anion gap [Moles/Vol] 11.7 mmol/L Normal 6.0-15.0 [facility] Comment on above: Performed By: #### E SR, MONOTEST, CMP, CBC #### [facility] [address] [place] [address] AST [Catalytic activity/Vol] 15 U/L Normal 13-39 [facility] Comment on above: Performed By: #### E SR, MONOTEST, CMP, CBC #### [facility] [address] Bilirubin [Mass/Vol] 0.4 mg/dL Normal 0.3-1.0 [facility] Comment on above: Performed By: #### E SR, MONOTEST, CMP, CBC #### [facility] [address] Calcium [Mass/Vol] 10.1 mg/dL Normal 8.6-10.3 [facility] Comment on above: Performed By: #### E SR, MONOTEST, CMP, CBC #### [facility] [address] Chloride [Moles/Vol] 103 mmol/L Normal 98-107 [facility] Comment on above: Performed By: #### E SR, MONOTEST, CMP, CBC #### [address] CO2 [Moles/Vol] 28.1 mmol/L Normal 21.0-31.0 [facility] Comment on above: Performed By: #### E SR, MONOTEST, CMP, CBC #### [place] [address] [place] Creatinine [Mass/Vol] 0.97 mg/dL Normal 0.60-1.20 [facility] Comment on above: Performed By: #### E SR, MONOTEST, CMP, CBC #### [place] [address] [place] Creatinine Clr Calc Pharmacy 74.15 Normal [facility] Comment on above: Result Comment: PERF ORMED BY: [place] [address] PATHOLOGIST REPAIR SPECIALIST MEAGAN SAMPSON M.D. Performed By: #### E SR, MONOTEST, CMP, CBC #### [place] [address] [place] GFR/1.73 sq M.predicted MDRD (S/P/Bld) [Vol rate/Area] mL/min/{1.73_m2} Normal [facility] Comment on above: Performed By: #### E SR, MONOTEST, CMP, CBC #### [facility] [address] [place] [address] [place] Globulin (S) [Mass/Vol] 3.4 g/dL Normal [facility] Comment on above: Performed By: #### E SR, MONOTEST, CMP, CBC #### [facility] [address] Glucose [Mass/Vol] 90 mg/dL Normal 70-100 [facility] Comment on above: Result Comment: [facility] Glucose Reference Range is dependent on time and content of last meal. Glucose of more than 200 mg/dL in a nonstressed, ambulatory subject supports the diagnosis of Diabetes Mellitus. ADA recommended reference range Performed By: #### E , ULICES CMP, CBC #### [facility] [address] Potassium [Moles/Vol] 3.8 mmol/L Normal 3.5-5.1 [facility] Comment on above: Performed By: #### E , ULICES, CMP, CBC #### [facility] [address] Protein [Mass/Vol] 7.7 g/dL Normal 6.4-8.9 [facility] Comment on above: Performed By: #### E SR, JADEEST, CMP, CBC #### [facility] [address] [place] [address] [place] Sodium [Moles/Vol] 139 mmol/L Normal 136-145 [facility] Comment on above: Performed By: #### E SR, MONOTEST, CMP, CBC #### [facility] [address] [place] [address] [place] Urea nitrogen [Mass/Vol] 14 mg/dL Normal 7-25 [facility] Comment on above: Performed By: #### E SR, MONOTEST, CMP, CBC #### [facility] [address] [place] [address] [place] Erythrocyte Sedimentation Ra jess 02-08-2024 ESR (Bld) [Velocity] 63 mm/h High 0-19 [facility] Comment on above: Result Comment: PERF ORMED BY: [place] [address] PATHOLOGIST REPAIR SPECIALIST MEAGAN SAMPSON M.D. Performed By: #### E SR, MONOTEST, CMP, CBC #### [facility] [address] [place] [address] [place] 02-08-2024 Monotest Negative Normal Negative [facility] Comment on above: Result Comment: PERF ORMED BY: [place] [address] PATHOLOGIST REPAIR SPECIALIST MEAGAN SAMPSON M.D. Performed By: #### E SR, MONOTEST, CMP, CBC #### [address] Throat Cultureon 02-08-2024 Throat culture Heavy Normal Respiratory Ilsa 2 Days PERFORMED BY: [place] [address] PATHOLOGIST REPAIR SPECIALIST MEAGAN SAMPSON M.D. Normal [facility] Comment on above: Performed By: #### C UT #### [address] XR chest 2V*on 02-08-2024 XR chest 2V* [facility] [place] [address] XRay Report Signed Patient: Heather Johns MR#: [id number] : 1975 Acct:[id number] Age/Sex: 48 / F ADM Date: 02/08/24 Loc: ER Room: Type: [facility] ER Attending Dr: Copies to: Richard [...] Hernandez II, MD 02/08/241443 Signed By: 02/08/241443 [facility] XR chest 2V* [facility] [place] [address] XRay Report Signed Patient: Heather Johns MR#: [id number] : 1975 Acct:[id number] Age/Sex: 48 / F ADM Date: 02/08/24 Loc: ER Room: Type: [facility] ER Attending Dr: Copies to: Richard [...] Hernandez II, MD 02/08/241443 Signed By: 02/08/241443 [facility] US Abdomen RUQon 10-19-2023 EXAMINATION: US [...] explain right upper quadrant pain. MACRO: None [facility] Radiology Study observation (narrative) [facility] US Abdomen RUQOrdered By: Luann Constantino on 10-19-2023 [employer] Work Phone: US LIVER/GALL BLADDER/PANCRE ASon 10-19-2023 [...] upper quadrant pain. MACRO: None Normal [facility] Progress Noteson 08-13-2023 Fmd Teacher Authentication Interface Message Text Gastroenterology Clinic Visit Paulina JonesDO [address] [place] [address] Attending Physician: Dr. Bethany Johnson MD PCP: [...] Co (more content not included)... Normal [facility] Fmd Teacher Authentication Interface Message Text Patient was identified by name and date of . George BowensPatient at risk for falls:No Falls Risk protocol implemented: No Normal [facility] BASIC METABOLIC PANELon 09-0 Anion gap [Moles/Vol] 14 mmol/L Normal 10-20 [facility] Comment on above: Performed By: #### C H8, HEPATIC, LIP ####[facility] [id number] [place], [place], Calcium [Mass/Vol] 9.8 mg/dL Normal 8.4-10.[address] [facility] Comment on above: Performed By: #### C H8, HEPATIC, LIP ####[facility] [id number] [place], [place], Chloride [Moles/Vol] 106 mmol/L Normal 97-[address] [facility] Comment on above: Performed By: #### C H8, HEPATIC, LIP ####[facility] [id number] [place], [place], CO2 [Moles/Vol] 22 mmol/L Normal 21-30 [facility] Comment on above: Performed By: #### C H8, HEPATIC, LIP ####[facility] PATH[facility] [id number] [place], [place], Creatinine [Mass/Vol] 0.99 mg/dL Normal 0.50-1.[address] [facility] Comment on above: Performed By: #### C H8, HEPATIC, LIP ####[facility] PATHOLOGY [id number] [place], ESTIMATED GFR (CKD-EPI) 70 mL/min/1.73sqm Normal >=60 The [facility] Comment on above: Result Comment: 2020 [...] Inclusion of Race in Diagnosing Kidney Disease. [place] Journal of Kidney Diseases 2021;79(2):268-88.e1. 2. N Engl J Med 1 Vol. 385 Issue 19 Pages [phone] Performed By: #### C H8, HEPATIC, LIP ####[facility] PATH[facility] [id number] [place], Glucose [Mass/Vol] 109 mg/dL Normal 68-110 The [facility] Comment on above: Performed By: #### C H8, HEPATIC, LIP ####[facility] PATHOLOGY [id number] [place], Potassium [Moles/Vol] 4.4 mmol/L Normal 3.3-5.3 The [facility] Comment on above: Performed By: #### C H8, HEPATIC, LIP ####[facility] PATHOLOGY [id number] [place], Sodium [Moles/Vol] 138 mmol/L Normal 135-[address] [facility] Comment on above: Performed By: #### C H8, HEPATIC, LIP ####[facility] PATHOLOGY [id number] [place], Urea nitrogen [Mass/Vol] 22 mg/dL Normal 8-22 The [facility] Comment on above: Performed By: #### C H8, HEPATIC, LIP ####[facility] PATHOLOG[facility] [id number] [place], Basic metabolic 2000 panelon 08-08-2023 Anion gap [Moles/Vol] 14 mmol/L 10 - 20 [facility] Calcium [Mass/Vol] 9.8 mg/dL 8.4 - 10. 4 mg/dL [facility] Chloride [Moles/Vol] 106 mmol/L 97 - 111 mmol/L [facility] CO2 [Moles/Vol] 22 mmol/L 21 - 30 mmol/L [facility] Creatinine [Mass/Vol] 0.99 mg/dL 0.50 - 1.10 mg/dL [facility] GFR/1.73 sq M.predicted MDRD (S/P/Bld) [Vol rate/Area] 70 mL/min/{1.73_m2} [facility] Comment on above: 2020 CKD EPI Equatio n using Creatinine without Race Comment: Estimated glomerular filtration rate (eGFR) is calculated without a race coefficient. Values should be interpreted in the context of the patient's full clinical presentation. Reference: 1. Josias Pineda, Kraig M, Shandra STEPHEN, et al.. A Unifying Approach for GFR Estimation: Recommendations of the NKF-ASN Task Force on Reassessing the Inclusion of Race in Diagnosing Kidney Disease. [place] Journal of Kidney Diseases 202;79(2):268-88.e1. 2. N Engl J Med 1 Vol. 385 Issue 19 Pages 6396-5896 Glucose [Mass/Vol] 109 mg/dL 68 - 110 mg/dL [facility] Interpretation and review of laboratory results Normal [facility] Potassium [Moles/Vol] 4.4 mmol/L 3.3 - 5.3 mmol/L [facility] Sodium [Moles/Vol] 138 mmol/L 135 - 148 mmol/L [facility] Urea nitrogen [Mass/Vol] 22 mg/dL 8 - 22 mg/dL [facility] CBC WITH DIFFERENTIALon Basophils (Bld) [#/Vol] 0.28 10*3/uL High 0.00 - 0.20 K/uL [facility] Basophils/100 WBC (Bld) 3.3 % High NINF - 1.9 % [facility] Eosinophils (Bld) [#/Vol] 0.37 10*3/uL 0.00 - 0.70 K/uL [facility] Eosinophils/100 WBC (Bld) 4.5 % High 0.1 - 4.0 % [facility] Erythrocyte distribution width (RBC) [Ratio] 12.6 % 11.5 - 14.5 % [facility] Hematocrit (Bld) [Volume fraction] 39.5 % 36.0 - 46.0 % [facility] Hemoglobin (Bld) [Mass/Vol] 12.9 g/dL 12.0 - 15.0 g/dL [facility] Interpretation and review of laboratory results Abnormal [facility] Lymphocytes (Bld) [#/Vol] 3.85 10*3/uL 1.00 - 4.80 K/uL [facility] Lymphocytes/100 WBC (Bld) 46.5 % High 24.0 - 44.0 % [facility] MCH (RBC) [Entitic mass] 29.4 pg 26.0 [...] 10*3/uL 4.5 - 11.5 K/uL [facility] Basophils (Bld) [#/Vol] 0.28 10*3/uL High 0.00-0.20 The [facility] Comment on above: Performed By: #### C BCDSAT #### S PATHOLOGY LABORATORY [address] [place] [address], Basophils/100 WBC (Bld) 3.3 % High <=1.9 [facility] Comment on above: Performed By: #### C BCDSAT #### S PATHOLOGY LABORATORY [address] [place] [address], Eosinophils (Bld) [#/Vol] 0.37 10*3/uL Normal 0.00-0.70 [facility] Comment on above: Performed By: #### C BCDSAT #### S PATHOLOGY LABORATORY [address] [place] [address], Eosinophils/100 WBC (Bld) 4.5 % High 0.1-4.0 [facility] Comment on above: Performed By: #### C BCDSAT #### S PATHOLOGY LABORATORY [address] [place] [address], Erythrocyte distribution width (RBC) [Ratio] 12.6 % Normal 11.5-14.5 [facility] Comment on above: Performed By: #### C BCDSAT #### [facility] PATHOLOGY LABORATORY [address] [place] [address], Hematocrit (Bld) [Volume fraction] 39.5 % Normal 36.0-46.0 The [facility] Comment on above: Performed By: #### C BCDSAT #### [facility] PATHOLOGY LABORATORY [address] [place] [address], Hemoglobin (Bld) [Mass/Vol] 12.9 g/dL Normal 12.0-15.0 The [facility] Comment on above: Performed By: #### C BCDSAT #### [facility] PATHOLOGY LABORATORY [address] [place] [address], Lymphocytes (Bld) [#/Vol] 3.85 10*3/uL Normal 1.00-4.80 The [facility] Comment on above: Performed By: #### C BCDSAT #### [facility] PATHOLOGY LAB[facility]ATORY [address] [place] [address], Lymphocytes/100 WBC (Bld) 46.5 % High 24.0-44.0 The [facility] Comment on above: Performed By: #### C BCDSAT #### [facility] PATHOLOGY LAB[facility]ATORY [address] [place] [address], MCH (RBC) [Entitic mass] 29.4 pg Normal 26.0-34.[address] [facility] Comment on above: Performed By: #### C BCDSAT #### [facility] PATHOLOGY LAB[facility]ATORY [address] [place] [address], MCHC (RBC) [Mass/Vol] 32.7 g/dL Normal 32.0-35.9 The [facility] Comment on above: Performed By: #### C BCDSAT #### [facility] PATHOLOGY LAB[facility]ORY [address] [place] [address], MCV (RBC) [Entitic vol] 90 fL Normal 80-[address] [facility] Comment on above: Performed By: #### C BCDSAT #### [facility] PATHOLOGY LABORATORY [address] [place] [address], MONOCYTE DISTRIBUTION WIDTH Normal The [facility] Comment on above: Performed By: #### C BCDSAT #### [facility] [address] [place], [place], Monocytes (Bld) [#/Vol] 0.64 10*3/uL Normal 0.20-1.00 The [facility] Comment on above: Performed By: #### C BCDSAT #### S PATHOLOGY LABORATORY [address] [place], [place], Monocytes/100 WBC (Bld) 7.7 % Normal 2.0-11.0 The [facility] Comment on above: Performed By: #### C BCDSAT #### [facility] PATHOLOGY [facility]ORATORY [address] [place], [place], Neutrophils (Bld) [#/Vol] 3.14 10*3/uL Normal 1.50-8.00 The [facility] Comment on above: Performed By: #### C BCDSAT #### [facility] PATHOLOG[facility] [address] [place], [place], Neutrophils/100 WBC (Bld) 38.0 % Normal 31.0-76.0 The [facility] Comment on above: Performed By: #### C BCDSAT #### [facility] PATHOLOG[facility] LAB[facility]ORY [address] [place], [place], Platelet mean volume (Bld) [Entitic vol] 9.6 fL Normal 7.5-11.2 The [facility] Comment on above: Performed By: #### C BCDSAT #### [facility] PATHOLOG[facility]ATORY [address] [place], [place], Platelets (Bld) [#/Vol] 328 10*3/uL Normal 150-400 The [facility] Comment on above: Performed By: #### C BCDSAT #### [facility] PATHOLOGY LAB[facility]ORY [address] [place], [place], RBC (Bld) [#/Vol] 4.40 10*6/uL Normal 4.00-5.20 The [facility] Comment on above: Performed By: #### C BCDSAT #### S PATHOLOGY LABORATORY [address] [place], [place], WBC (Bld) [#/Vol] 8.3 10*3/uL Normal 4.5-11.[address] [facility] Comment on above: Performed By: #### C BCDSAT #### [facility] [address] [place], [id number] [address] ABD/PELVIS ED I/V IVÁN W / [...] Small hiatal hernia. MACRO: None Normal The [facility] CT Abdomen and Pelvis W cont rast IVOrdered By: Don Stoll on 08-08-2023 CT DLP 693.9 (mGy.cm) [facility] h Work Phone: CT Series Abdomen [facility] Work Phone: CTDI VOL 12.6 (mGy) [facility] Work Phone: PHANTOM TYPE IEC Body Dosimetry Phantom [facility] Work Phone: [facility] Work Phone: CT Abdomen and Pelvis W [...] pelvis. 2. Small hiatal hernia. MACRO: None [facility] Radiology Study observation (narrative) [facility] D-DIMERon 08-08-2023 Fibrin D-dimer DDU (PPP) [Mass/Vol] NINF [facility] Interpretation and review of laboratory results Normal [facility] A D-Dimer result of <230 ng/mL DDU has a high negative predictive value for DVT and PE when combined with a clinical assessment of low to moderate probability. This cut-off value is specific for HemosIL D-dimer assay and values obtained using different methods may not be used interchangeably. [facility] DIMER < 200 Normal <230 The [facility] Comment on above: Order Comment: A [...] D NIC #### [facility] [address] [place], [address] ED Provider Noteson 08-08-20 Fmd Teacher Authentication Interface Message Text Abi for Roby: CT a/pw/ NAD, d dimer less than 200 making PE or AD less likley, pt's feeling better, re exam: abdomen w/ + BS, ND, mild LUQ tenderness, no guarding/rebound. Stable for outpatient management Normal The [facility] Fmd Teacher Authentication Interface Message Text EMERGENCY DEPARTMENT - VISIT NOTE --------- HISTORY OF PRESENT ILLNESS ----- Chief Complaint Patient presents with Abdominal pain Epigastric pain x1.5 weeks. Pt states she thinks she has a hernia. Ribbon Winder: not needed - patient preferred language is Moroccan. The history is provided by the Patient. [...] incorporated. Review of External (Non- ED) Notes: [facility] ED notes from 2017 reviewed and show EGD w/ hiatal hernia Management Decisions: Diagnoses considered include left chest pain includes PE, muscle strain, GERD, low suspicion for ACS based on normal ekg and history and duration of sx. No evidence of PNA or PTX on cxr. Low suspicion for SBO based on hx and exam. Doubt biliary (more content not included)... Normal The [facility] HEPATIC FUNCTION PANELon Albumin [Mass/Vol] 4.3 g/dL 3.4 - 5.1 g/dL [facility] ALP [Catalytic activity/Vol] 79 U/L [facility] ALT [Catalytic activity/Vol] 17 U/L [facility] AST [Catalytic activity/Vol] 13 U/L [facility] Bilirubin [Mass/Vol] 0.4 mg/dL 0.1 - 1.5 mg/dL [facility] Bilirubin.direct [Mass/Vol] 0.06 mg/dL Low 0.10 - 0.30 mg/dL [facility] Interpretation and review of laboratory results Abnormal [facility] Protein [Mass/Vol] 7.4 g/dL 6.2 - 8.3 g/dL [facility] Albumin [Mass/Vol] 4.3 g/dL Normal 3.4-5.1 The [facility] Comment on above: Performed By: #### C H8, HEPATIC, LIP ####[facility] PATHOLOGY [id number] [place], ALK 79 IU/L Normal 40-200 The [facility] Comment on above: Performed By: #### C H8, HEPATIC, LIP ####[facility] PATHOLOGY [id number] [place], ALT [Catalytic activity/Vol] 17 U/L Normal 7-40 The [facility] Comment on above: Performed By: #### C H8, HEPATIC, LIP ####[facility] PATHOLOGY [id number] [place], AST [Catalytic activity/Vol] 13 U/L Normal 7-40 The [facility] Comment on above: Performed By: #### C H8, HEPATIC, LIP ####[facility] PATHOLOGY [id number] [place], Bilirubin [Mass/Vol] 0.4 mg/dL Normal 0.1-1.5 The [facility] Comment on above: Performed By: #### C H8, HEPATIC, LIP ####[facility] PATHOLOGY [id number] [place], Bilirubin.direct [Mass/Vol] 0.06 mg/dL Low 0.10-0.30 The [facility] Comment on above: Performed By: #### C H8, HEPATIC, LIP ####[facility] PATHOLOGY [id number] [place], Protein [Mass/Vol] 7.4 g/dL Normal 6.2-8.3 The [facility] Comment on above: Performed By: #### C H8, HEPATIC, LIP ####S PATHOLOGY [id number] [place], LIPASEon 08-08-2023 Interpretation and review of laboratory results Normal [facility] Lipase [Catalytic activity/Vol] 12 U/L NINF [facility] LIP 12 IU/L Normal <128 The [facility] Comment on above: Performed By: #### C H8, HEPATIC, LIP ####[facility] PATHOLOGY [id number] [place], No Panel Informationon 08-08 [facility] Progress Noteson 08-08-2023 Fmd Teacher Authentication Interface Message Text Maya, Per 07/21/23 follow-up, patient is no longer using Humira until further notice due to possible respiratory infection. Patient now treating with topicals for now. Will hold Humira renewal until we hear further instruction for MD or patient. Normal The [facility] URINALYSISon 08-08-2023 Appearance (U) Clear Clear [facility] LM.HPF (Urine sed) [#/Area] Few [...] (positive predictive value for UTI around 50%) [facility] Glucose Ql (U) Negative Normal Negative [facility] Comment on above: Order Comment: A neg ative leukocyte esterase AND negative nitrite test or [...] (positive predictive value for UTI around 50%) Performed By: #### u rinalysis ####[facility] PATHOLOGY [id number] [place], SQUAMOUS EPITHELIAL 0-2 Normal 0-10 [facility] Comment on above: Order Comment: A neg ative leukocyte esterase AND negative nitrite test or [...] (positive predictive value for UTI around 50%) Performed By: #### u rinalysis ####[facility] PATHOLOGY [id number] [place] [address], U APPEAR Clear Normal Clear The [facility] Comment on above: Order Comment: A neg ative leukocyte esterase AND negative nitrite test or [...] (positive predictive value for UTI around 50%) Performed By: #### u rinalysis ####[facility] PATHOLOGY [id number] [place] [address], U BACTERIA Few Normal The [facility] Comment on above: Order Comment: A neg ative leukocyte esterase AND negative nitrite test or [...] (positive predictive value for UTI around 50%) Performed By: #### u rinalysis ####[facility] PATH[facility] [id number] [place], [place] BILI Negative Normal Negative The [facility] Comment on above: Order Comment: A neg ative leukocyte esterase AND negative nitrite test or [...] (positive predictive value for UTI around 50%) Performed By: #### u rinalysis ####[facility] PATHOLOGY [id number] [place] [address], U BLOOD Negative Normal Negative The [facility] Comment on above: Order Comment: A neg ative leukocyte esterase AND negative nitrite test or [...] (positive predictive value for UTI around 50%) Performed By: #### u rinalysis ####S PATHOLOGY [id number] [place], [place] COLOR Light Yellow Normal Colorless [facility] Comment on above: Order Comment: A neg ative leukocyte esterase AND negative nitrite test or [...] (positive predictive value for UTI around 50%) Performed By: #### u rinalysis ####[facility] PATH[facility] [id number] [place], [place] KETONE Negative Normal Negative [facility] Comment on above: Order Comment: A neg ative leukocyte esterase AND negative nitrite test or [...] (positive predictive value for UTI around 50%) Performed By: #### u rinalysis ####[facility] PATHOLOGY [id number] [place], [place] LEUK Positive Abnormal Negative [facility] Comment on above: Order Comment: A neg ative leukocyte esterase AND negative nitrite test or [...] (positive predictive value for UTI around 50%) Result Comment: Norm al urine specimens will not produce a positive reaction. Small amounts of leukocyte esterase, causing a positive reaction should be repeated, using a fresh urine specimen, from the same patient. Positive results require further testing for pyuria. Performed By: #### u rinalysis ####[facility] PATHOLOGY [id number] [place], [place] MUCOUS Present Normal The [facility] Comment on above: Order Comment: A neg ative leukocyte esterase AND negative nitrite test or [...] (positive predictive value for UTI around 50%) Performed By: #### u rinalysis ####[facility] PATHOLOGY [id number] [place], [place] NITRITE Negative Normal Negative [facility] Comment on above: Order Comment: A neg ative leukocyte esterase AND negative nitrite test or [...] (positive predictive value for UTI around 50%) Performed By: #### u rinalysis ####[facility] PATHOLOGY [id number] [place] [address], U PH 5.5 Normal 5.0-8.0 [facility] Comment on above: Order Comment: A neg ative leukocyte esterase AND negative nitrite test or [...] (positive predictive value for UTI around 50%) Performed By: #### u rinalysis ####[facility] PATHOLOGY [id number] [place], [place] PROTEIN Negative Normal Negative [facility] Comment on above: Order Comment: A neg ative leukocyte esterase AND negative nitrite test or [...] (positive predictive value for UTI around 50%) Performed By: #### u rinalysis ####[facility] PATHOLOGY [id number] [place], [place] RBC 0-2 Normal 0-2 [facility] Comment on above: Order Comment: A neg ative leukocyte esterase AND negative nitrite test or [...] (positive predictive value for UTI around 50%) Performed By: #### u rinalysis ####[facility] PATHOLOGY [id number] [place], [place] SG 1.021 Normal <=1.030 [facility] Comment on above: Order Comment: A neg ative leukocyte esterase AND negative nitrite test or [...] (positive predictive value for UTI around 50%) Performed By: #### u rinalysis ####[facility] PATHOLOGY [id number] [place], [place] UROBILI Negative Normal Negative [facility] Comment on above: Order Comment: A neg ative leukocyte esterase AND negative nitrite test or [...] (positive predictive value for UTI around 50%) Performed By: #### u rinalysis ####S PATHOLOGY [id number] [place], [place] WBC 0-2 Normal 0-2 [facility] Comment on above: Order Comment: A neg ative leukocyte esterase AND negative nitrite test or [...] (positive predictive value for UTI around 50%) Performed By: #### u rinalysis ####[facility] PATHOLOGY [id number] [place], XR CHEST PA+LAT 2 VIEWSon XR CHEST [...] acute cardiopulmonary findings. MACRO: None Normal [facility] XR Chest PA and Lateralon EXAMINATION: [...] IMPRESSION: No acute cardiopulmonary findings. MACRO: None [facility] Study observation (narrative) [facility] XR Chest PA and LateralOrder ed By: Adan Daniels on 08-08-2023 [facility] Work Phone: Progress Noteson 07-22-2023 Fmd Teacher Authentication Interface Message Text Lamonte Grady, Please see below denial from this patient's insurance for the Vtama Cream: Please let me know how you would like to proceed. Joseph Normal [facility] Fmd Teacher Authentication Interface Message Text [facility] - Prior Auth Denied- PHARMACY BENEFIT 07/22/23 1455 Specialty Med Prior Auth Info - Primary Specialty Med PA Outcome Denied Payor Approval Rx Benefit Insurance Payor [employer] Dual Medicare PA Number [id number] Denial Reason Required Step Therapy PA Notes [...] daily Unit of Measure g Is Approval NDC Specific? N Thank you, Maya Andrews CPhT Normal [facility] Fmd Teacher Authentication Interface Message Text [facility] - Prior Auth Submitted- PHARMACY BENEFIT Medication and dosing: vtama 1% cream - apply 2 g externally daily Insurance has been verified to be: [facility] dual medicare ([employer]) PA submitted on date: 07/22/2023 Method submitted: alanis Acosta: [id number] Pharmacy will addend this encounter with response from plan. Thank you, Maya Andrews [facility] Normal [facility] Progress Noteson 07-21-2023 Fmd Teacher Authentication Interface Message Text Documentation: Mode: Video [...] patient Pt advised to contact me over Jixeehart or call office at [phone] (more content not included)... Normal [facility] Telephone Encounteron 2022 Fmd Teacher Authentication Interface Message Text Called pt to let her know that she needs an follow up appointment per Dr. Grady. Pt states she is uncomfortable coming in for a visit and [facility] is the closest location for her. Pt wanting virtual appointment. Advised pt that I will reach out to provider to see if it is okay for a virtual appointment. Pt verbalized understanding. April Galo RN July 13, 2023 Normal [facility] Telephone Encounteron 2022 Fmd Teacher Authentication Interface Message Text Pt calling, requesting [...] no symptoms. Please contact. Thanks! Normal [facility] TUBERCULOSIS- CELL MEDIATED I*Ordered By: Karlee Ko on 12-24-2022 Interpretation and review of laboratory results Normal [facility] M. tuberculosis stim IFN-g by CD4+ CD8+ T-cells corrected for background Qn (Bld) NINF [facility] M. tuberculosis stim IFN-g by CD4+ T-cells corrected for background Qn (Bld) NINF [facility] TB (Cell Mediated) Negative Negative [facility] Interferon gamma release is measured for specimens [...] evidence of TB infection is not uncommon. [facility] Basic metabolic 2000 panelon 12-22-2022 Anion gap [Moles/Vol] 14 mmol/L 10 - 20 [facility] Calcium [Mass/Vol] 9.8 mg/dL 8.4 - 10. 4 mg/dL [facility] Chloride [Moles/Vol] 105 mmol/L 97 - 111 mmol/L [facility] CO2 [Moles/Vol] 28 mmol/L 21 - 30 mmol/L [facility] Creatinine [Mass/Vol] 0.86 mg/dL 0.50 - 1.10 mg/dL [facility] GFR/1.73 sq M.predicted MDRD (S/P/Bld) [Vol rate/Area] 84 mL/min/{1.73_m2} [facility] Comment on above: 2020 CKD EPI Equatio [...] Inclusion of Race in Diagnosing Kidney Disease. [place] Journal of Kidney Diseases 2021;79(2):268-88.e1. 2. N Engl J Med 1 Vol. 385 Issue 19 Pages 3327-2755 Glucose [Mass/Vol] 85 mg/dL 68 - 110 mg/dL [facility] Interpretation and review of laboratory results [facility] Potassium [Moles/Vol] 4.2 mmol/L 3.3 - 5.3 mmol/L [facility] Sodium [Moles/Vol] 143 mmol/L 135 - 148 mmol/L [facility] Urea nitrogen [Mass/Vol] 22 mg/dL 8 - 22 mg/dL [facility] Diabetes tracking panelOrder ed By: Jaciel Neal on 12-22-2022 Average glucose Estimated from glycated hemoglobin (Bld) [Mass/Vol] 111 mg/dL [facility] HbA1c (Bld) [Mass fraction] 5.5 % 4.0 - 5.6 % [facility] Stomach Views for gastric emptying W radionuclide Darius 01-23-2023 EXAMINATION: [place] GASTRIC EMPTYING STUDY 12/22/2022 12:29 PM CLINICAL [...] RADIOLOGY Eva Luna MD - 12/22/2022 EXAMINATION: [place] GASTRIC EMPTYING STUDY 12/22/2022 12:29 PM CLINICAL [...] compared to the prior study. MACRO: None [facility] Radiology Study observation (narrative) [facility] Stomach Views for gastric emptying W radionuclide POOrdered By: Eva Luna on 12-22-2022 [facility] Work Phone: TSHon 12-22-2022 Interpretation and review of laboratory results Normal [facility] TSH Qn 1.358 m[IU]/L [facility] Comment on above: Referance range for women as applicable: First Trimester: 0. 050 to 3.700 uIU/mL Second Trimester: 0. 310 to 4.350 uIU/mL Third Trimester: 0. 410 to 5.180 uIU/mL [facility] Basic metabolic 2000 panelOr dered By: Elsa Sifuentes on 11-12-2022 Anion gap [Moles/Vol] 12 mmol/L 10 - 20 [facility] Calcium [Mass/Vol] 9.2 mg/dL 8.4 - 10. 4 mg/dL [facility] Chloride [Moles/Vol] 104 mmol/L 97 - 111 mmol/L [facility] CO2 [Moles/Vol] 27 mmol/L 21 - 30 mmol/L [facility] Creatinine [Mass/Vol] 0.92 mg/dL 0.50 - 1.10 mg/dL [facility] GFR/1.73 sq M.predicted MDRD (S/P/Bld) [Vol rate/Area] 77 mL/min/{1.73_m2} [facility] Comment on above: 2020 CKD EPI Equatio n using Creatinine without Race Comment: Estimated glomerular filtration rate (eGFR) is calculated without a race coefficient. Values should be interpreted in the context of the patient's full clinical presentation. Reference: 1. Josias Pineda, Kraig M, Shandra STEPHEN, et al.. A Unifying Approach for GFR Estimation: Recommendations of the NKF-ASN Task Force on Reassessing the Inclusion of Race in Diagnosing Kidney Disease. [place] Journal of Kidney Diseases 202;79(2):268-88.e1. 2. N Engl J Med 2020 Vol. 385 Issue 19 Pages 5703-5328 Glucose [Mass/Vol] 90 mg/dL 68 - 110 mg/dL [facility] Interpretation and review of laboratory results Normal [facility] Potassium [Moles/Vol] 4.4 mmol/L 3.3 - 5.3 mmol/L [facility] Comment on above: Hemolysis present Sodium [Moles/Vol] 139 mmol/L 135 - 148 mmol/L [facility] Urea nitrogen [Mass/Vol] 21 mg/dL 8 - 22 mg/dL [facility] CBC WITH DIFFERENTIALon 12- Basophils (Bld) [#/Vol] 0.10 10*3/uL 0.00 - 0.20 K/uL [facility] Basophils/100 WBC (Bld) 1.2 % NINF - 1.9 % [facility] Eosinophils (Bld) [#/Vol] 0.10 10*3/uL 0.00 - 0.70 K/uL [facility] Eosinophils/100 WBC (Bld) 1.1 % 0.1 - 4.0 % [facility] Erythrocyte distribution width (RBC) [Ratio] 12.9 % 11.5 - 14.5 % [facility] Hematocrit (Bld) [Volume fraction] 39.3 % 36.0 - 46.0 % [facility] Hemoglobin (Bld) [Mass/Vol] 13.1 g/dL 12.0 - 15.0 g/dL [facility] Interpretation and review of laboratory results Abnormal [...] [facility] RBC (Bld) [#/Vol] 4.44 10*6/uL [facility] WBC (Bld) [#/Vol] 4.5 10*3/uL 4.5 - 11.5 K/uL [facility] HIGH SENSITIVITY TROPONIN Io n 11-12-2022 Troponin I.cardiac DL <= 0.01 ng/mL [Mass/Vol] ng/L NINF - 15 ng/L [facility] Troponin I.cardiac DL <= 0.0 1 ng/mL [Mass/Vol]on 11-12-2022 Interpretation and review of laboratory results Normal [facility] High Sensitivity Cardiac Troponin I (hsTnI) assay has replaced the conventional troponin assay at [facility]. All results are reported in whole numbers representing ng/L. Repeat test times for ruling out acute coronary syndrome (ACS) are every 2 hours instead of every 6-8 hours. [id number] conventional troponin (I-stat) will remain available in the [facility] ED results obtained by different labs or [...] 1 points, >45 ng/L = 2 points). [facility] URINALYSISon 11-12-2022 Appearance (U) Clear Clear [facility] Bilirubin [...] gravity (U) [Rel density] 1.005 - 1.030 [facility] Urobilinogen Qn (U) 0.2 mg/dL 0.2 - 1. 0 mg/dL [facility] URINALYSIS - MICRO (SATELLIT E)on 11-12-2022 Bacteria LM.HPF (Urine sed) [#/Area] Many /HPF [facility] Epithelial cells.squamous LM.HPF (Urine sed) [#/Area] 6-10 [facility] Interpretation and review of laboratory results Abnormal [facility] Mucus Ql (Urine sed) Present [facility] Urate crystals amorphous LM.HPF (Urine sed) [#/Area] Moderate /HPF [facility] WBC (U) [#/Vol] 3-5 [facility] WBC LM.HPF (Urine sed) [#/Area] None Seen [facility] XR Chest PA and Lateralon EXAMINATION: XR [...] No acute cardiopulmonary abnormality identified. MACRO: None [facility] Radiology Study observation (narrative) [facility] XR Chest PA and LateralOrder ed By: Carl Hough on 11-12-2022 [facility] Work Phone: ED NOTEon 03-07-2022 ED NOTE HNO ID: [id number] Author: Thania Luna RN Service: ? Author Type: Registered Nurse Type: ED Notes Filed: 03/07/2022 4:49 PM Note Text: Pt received written and verbal discharge instructions. Instructed pt to follow up with PCP or follow-up DR. Instructed to come back to Emergency Room if symptoms worsen. Pt verbalized understanding. [facility] ED NOTE HNO ID: [id number] Author: Yaritza Quarles RN Service: ? Author Type: Registered Nurse Type: ED Notes Filed: 03/07/2022 4:18 PM Note Text: Patient presents to the ED with c/o bilateral leg pain x2 weeks. Patient denies injury/trauma. Patient denies history of blood clots. [facility] ED PROV NOTEon 03-07-2022 ED PROV NOTE HNO ID: [id number] Author: Jose Oswald PA-C Service: ? Author Type: Physician Composition Instructor Type: ED Provider Notes Filed: 03/07/2022 4:39 [...] issues or complaints. History provided by: Patient outpatient coordinator used: No PAST MEDICAL HISTORY Diagnosis Date - Anxiety - Arthritis - Bronchitis - Psychiatric disorder PAST SURGICAL HISTORY Procedure Laterality Date - EYE SURGERY HX - HYSTERECTOMY HX - ORTHOPEDICS SURGERY HX - PAST SURGICAL HISTORY OF Right 2008 bunion - PAST SURGICAL HISTORY OF Right 2008 broke foot had pins FAMILY HISTORY Problem [...] extremities jenni (more content not included)... Normal [facility] Vital Signs Date Time Vital Sign Value Performing Clinician Faci kehinde 08-13-2023 11:01-0400 Body mass index (BMI) [Ratio] 29.6 kg/m2 Mack Vega MD Work Phone: [employer] 08-13-2023 11:01-0400 Body temperature 96.69 [degF] Mack Vega MD [facility] 08-13-2023 11:01-0400 Body weight 80.69 kg Mack Vega MD Work Phone: [facility] 08-13-2023 11:01-0400 Diastolic blood pressure 92 mm[Hg] Mack Vega MD Work Phone: [employer] 08-13-2023 11:01-0400 Heart rate 95 /min Mack Vega MD Work Phone: [employer] 08-13-2023 11:01-0400 SaO2% (BldA) [Mass fraction] 99 % Mack Vega MD Work Phone: [employer] 08-13-2023 11:01-0400 Systolic blood pressure 124 mm[Hg] Mack Vega MD Work Phone: [employer] 08-08-2023 16:11-0400 Diastolic blood pressure 89 mm[Hg] Nhi Abdul MD Work Phone: [employer] 08-08-2023 16:11-0400 Heart rate 68 /min Nhi Abdul MD Work Phone: [employer] 08-08-2023 16:11-0400 Respiratory rate 19 /min Nhi Abdul MD Work Phone: [employer] 08-08-2023 16:11-0400 Systolic blood pressure 139 mm[Hg] Nhi Abdul MD Work Phone: [employer] 08-08-2023 10:41-0400 Body temperature 98.01 [degF] Nhi Abdul MD Work Phone: [employer] 08-08-2023 10:41-0400 SaO2% (BldA) [Mass fraction] 97 % Nhi Abdul MD Work Phone: [employer] 12-05-2022 10:50-0500 Body mass index (BMI) [Ratio] 28.79 kg/m2 Mason Walls MD Work Phone: [employer] 12-05-2022 10:50-0500 Body temperature 97.7 [degF] Mason Walls MD Work Phone: [employer] 12-05-2022 10:50-0500 Body weight 78.47 kg Mason Walls MD Work Phone: [employer] 12-05-2022 10:50-0500 Diastolic blood pressure 74 mm[Hg] Mason Walls MD Work Phone: [employer] 12-05-2022 10:50-0500 Heart rate 98 /min Mason Walls MD Work Phone: [employer] 12-05-2022 10:50-0500 Systolic blood pressure 106 mm[Hg] Mason Walls MD Work Phone: [employer] 11-12-2022 17:49-0500 Body temperature 98.2 [degF] Antwan Woodruff MD Work Phone: [facility] 11-12-2022 17:49-0500 Diastolic blood pressure 68 mm[Hg] Antwan Woodruff MD Work Phone: [facility] 11-12-2022 17:49-0500 Heart rate 113 /min Antwan Woodruff MD Work Phone: [facility] 11-12-2022 17:49-0500 Respiratory rate 18 /min Antwan Woodruff MD Work Phone: [facility] 11-12-2022 17:49-0500 SaO2% (BldA) [Mass fraction] 97 % Antwan Woodruff MD Work Phone: [facility] 11-12-2022 17:49-0500 Systolic blood pressure 106 mm[Hg] Antwan Woodruff MD Work Phone: [facility] Encounters Encounter Date Encounter Type Care Provider Facility Start: 06-20-2024 End: 06-20-2024 Telephone encounter To Be Assigned [facility] Rheumato logy (Arthritis) Comment on above: Returned call Start: 06-09-2024 End: 06-09-2024 ambulatory LEOPOLDO WOODS Issa Start: 02-17-2024 End: 02-18-2024 ambulatory Azul Vanegasmarilia [facility] Start: 02-17-2024 End: 02-17-2024 Patient encounter procedure Azul Cristina [facility] Start: 02-08-2024 End: 02-08-2024 Emergency department patient visit Richard Coon Facility:[facility] Start: 10-19-2023 End: 10-19-2023 ambulatory UNKNOWN PROVIDER Facility:[facility] Start: 10-19-2023 End: 10-19-2023 Subsequent hospital visit by physician Op Ultrasound 3 [facility] Radiology Comment on above: Colicky RUQ abdomina l pain Start: 08-13-2023 End: 08-13-2023 Office outpatient visit 25 minutes Mack Vega MD Work Phone: [facility] Gastroenterology Comment on above: Left upper quadrant abdominal pain (Primary Dx); Gastroesophageal reflux disease without esophagitis; Hiatal hernia; Body mass index (BMI) 29.0-29.9, adult Start: 08-13-2023 End: 08-13-2023 ambulatory UNKNOWN PROVIDER Facility:[facility] Start: 08-08-2023 End: 08-08-2023 Emergency department patient visit Nhi Abdul MD Work Phone: [facility] Emergency Medicine Comment on above: Abdominal pain (Epig astric pain x1.5 weeks. Pt states she thinks she has a hernia.) Start: 08-08-2023 Emergency department patient visit UNKNOWN PROVIDER Facility:[facility] Start: 08-07-2023 ambulatory [facility] Start: 07-22-2023 ambulatory [facility] Start: 07-22-2023 Patient encounter procedure [facility] Comment on above: Specialty Pharmacy R eferral (VTAMA) Start: 07-21-2023 End: 07-21-2023 ambulatory UNKNOWN PROVIDER Facility:[facility] Start: 07-21-2023 End: 07-21-2023 Office outpatient visit 25 minutes Shira Grady DO Work Phone: [facility] Comment on above: Psoriasis (Primary D x); High risk medication use Start: 07-10-2023 ambulatory Regina newby MD Work Phone: [facility] Comment on above: Hi Start: 07-10-2023 E-mail encounter fro m caregiver Regina Bright MD Work Phone: [facility] Start: 04-10-2023 Specialty Pharmacy [facility] Comment on above: Specialty Pharmacy M edication Refill (Humira) Start: 04-08-2023 Refill Regina newby MD Work Phone: [facility] D[facility] Comment on above: Refill Start: 02-20-2023 Specialty Pharmacy [facility] Comment on above: Specialty Pharmacy M edication Refill (Humira) Start: 02-19-2023 ambulatory Joseph Stalcup [facility] Start: 01-20-2023 [facility] Comment on above: Specialty Pharmacy M edication Refill (Humira ) Start: 12-23-2022 Specialty Pharmacy [facility] Comment on above: Specialty Pharmacy M edication Refill (Humira) Start: 12-22-2022 End: 12-22-2022 Clinical Support Pathology Provider [facility] Main Cam pus Pathology Comment on above: Arrived Start: 12-22-2022 End: 12-22-2022 Subsequent hospital visit by physician Ip/Op Nuclear Prep [facility] Radiology Comment on above: Indigestion Start: 12-17-2022 Refill Regina newby MD Work Phone: [facility] Comment on above: Refill Start: 12-05-2022 Letter encounter Antwan Woodruff MD Work Phone: [facility] Community Practice Start: 12-05-2022 End: 12-08-2022 Office outpatient new 45 minutes Mason Walls MD Work Phone: [facility] Gastroenterology Comment on above: Indigestion (Primary Dx); Body mass index (BMI) 28.0-28.9, adult Start: 12-04-2022 Letter encounter Antwan Woodruff MD Work Phone: [facility] [place] [facility] [place] Scan Start: 12-03-2022 Letter encounter Antwan Woodruff MD Work Phone: [facility] Community Practice Start: 11-28-2022 Specialty Pharmacy [facility] Comment on above: Specialty Pharmacy M edication Refill (Humira) Start: 11-12-2022 End: 11-12-2022 Emergency department patient visit Antwan Woodruff MD Work Phone: [facility] Start: 11-12-2022 End: 11-12-2022 Office outpatient visit 25 minutes Regina Bright MD Work Phone: [facility] Comment on above: Psoriasis (Primary D x) Start: 10-02-2022 Telephone encounter Regina barnes MD Work Phone: [facility] Comment on above: Dermatology Start: 08-13-2022 Refill Regina newby MD Work Phone: [facility] Dermatology Comment on above: Refill Start: 07-23-2022 End: 07-23-2022 Phys/qhp telephone evaluation 11-20 min Regina Bright MD Work Phone: [facility] Comment on above: Palmoplantar pustula r psoriasis (Primary Dx); High risk medication use Start: 06-24-2022 Telephone encounter Joseph Juni [facility] Comment on above: Specialty Pharmacy R eferral (HUMIRA) Specialty Pharmacy R eferral (HUMIRA - [place] APPROVED) Start: 05-26-2022 End: 05-26-2022 Office outpatient new 20 minutes Alie Harper MD Work Phone: [facility] - Ambulatory Comment on above: Psoriasis, unspecifi ed (Primary Dx) Start: 06-25-2019 End: 06-25-2019 Patient encounter procedure [facility] Facility: Procedures Date Procedure Procedure Detail Performing Clinician Start: 10-19-2023 Us abdominal real ti me w/image limited Leopoldo Woods [employer] [facility] Work Phone: Start: 08-08-2023 Ct abdomen & [...] in Serum or Plasma Cholesterol [facility] Start: 05-15-2028 Cholesterol [Mass/volume] in Serum or Plasma Cholesterol [facility] Start: 09-16-2026 Screening for malignant neoplasm of colon [facility] Start: 01-10-2026 Tetanus vaccination Tetanus (Td or Tdap) Booster [facility] Start: 09-20-2025 Cholesterol [Mass/volume] in Serum or Plasma Cholesterol [facility] Start: 08-30-2024 Influenza vaccination Influenza Vaccine (#1) [facility] Start: 12-09-2023 COVID-19 Vaccine ( season) COVID-19 Vaccine ( season) [facility] Start: 08-30-2023 Influenza vaccination Influenza Vaccine (#1) [facility] Start: 08-13-2023 End: 08-13-2023 Patient encounter procedure 08/13/2023 11:00 AM EDT Office Visit [facility] Gastroenterology [address] [place] [id number] Mack Vega MD [address] [place] [id number] [facility] Gastroenterology Start: 07-31-2023 Influenza vaccination Influenza Vaccine (#1) [facility] Start: 05-05-2023 Cholesterol [Mass/volume] in Serum or Plasma Cholesterol [facility] Start: 03-03-2023 COVID-19 Vaccine (5 - Moderna risk series) COVID-19 Vaccine (5 - Moderna risk series) [facility] Start: 01-29-2023 End: 01-29-2023 Patient encounter procedure 01/29/2023 Office Visit Gastroenterology Mason Walls MD [address] [place] [id number] [facility] Gastroenterology Start: 12-22-2022 End: 12-22-2022 Patient encounter procedure 12/22/2022 Appointment Radiology [facility] Radiology Start: 12-22-2022 End: 12-22-2022 Patient encounter procedure 12/22/2022 Appointment Radiology [facility] Radiology Start: 12-22-2022 End: 12-22-2022 Patient encounter procedure 12/22/2022 Appointment Radiology [facility] Radiology Start: 12-05-2022 End: 12-05-2023 NM Stomach Views for gastric emptying W radionuclide PO NM GASTRIC EMPTYING STUDY Imaging Routine Indigestion Expected: 12/05/2022, Expires: 12/05/2023 [facility] Comment on above: Expected: 12/05/2022, Expires: 4 Start: 12-04-2022 End: 12-04-2022 Professional / ancillary services management 12/04/2022 Ancillary Procedure Radiology [facility] [place] Ultrasound Start: 10-03-2022 End: 04-01-2023 Tb cell mediated antign respnse gamma interferon TUBERCULOSIS- CELL MEDIATED I* Lab Routine Psoriasis, unspecified High risk medication use Expected: 10/03/2022, Expires: 04/01/2023 [facility] Work Phone: Comment on above: Expected: 10/03/2022, Expires: 3 Start: 08-30-2022 Influenza vaccination Influenza Vaccine (#1) [facility] Start: 07-23-2022 End: 07-23-2022 Telemedicine consultation with patient 07/23/2022 Telemedicine Dermatology Regina Bright MD [address] [place] [address] [facility] Start: 11-27-2021 COVID-19 Vaccine (4 - Booster for Moderna series) COVID-19 Vaccine (4 - Booster for Moderna series) [facility] Start: 11-20-2021 COVID-19 Vaccine (4 - Booster for Moderna series) COVID-19 Vaccine (4 - Booster for Moderna series) [facility] Start: 10-23-2021 COVID-19 Vaccine (4 - Booster for Moderna series) COVID-19 Vaccine (4 - Booster for Moderna series) [facility] Start: 2020 [facility]ening [facility] Start: 2015 Screening for malignant neoplasm of breast Mammography [facility] Start: 11-30-2012 Annual wellness visit Annual Wellness Visit ([id number]) [facility] Start: 1996 Screening for malignant neoplasm of cervix Pap Smear [facility] Start: 1994 Hepatitis A (HAV) Vaccine (optional start 19+ years) Hepatitis A (HAV) Vaccine (optional start 19+ years) [facility] Start: 1994 Hepatitis B vaccination Hepatitis B (HBV) Vaccine (1 of 3 - 19+ 3-dose series) [facility] Start: 1994 Shingles (RZV) Vaccine (1 of 2) Shingles (RZV) Vaccine (1 of 2) [facility] Start: 1975 COVID-19 Vaccine ([id number] formulation) COVID-19 Vaccine ( formulation) [facility] Assay of thyroid stimulating hormone tsh TSH Lab Routine Indigestion Ordered: 12/05/2022 [facility] Comment on above: Ordered: 12/05/2022 End: 07-23-2023 Basic metabolic 2000 panel - Serum or Plasma BASIC METABOLIC PANEL 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 1 Occurrences starting 07/23/2022 until 07/23/2023 [facility] Comment on above: 1 Occurrences starting 07/23/2022 until 07/23/2023 CBC W Auto Differential panel - Blood COMPLETE BLOOD COUNT W/DIFF 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 Ordered: 07/23/2022 [facility] Comment on above: Ordered: 07/23/2022 Diabetes tracking panel HEMOGLOBIN A1C Lab Routine Indigestion Ordered: 12/05/2022 [facility] [employer] Work Phone: Comment on above: Ordered: 12/05/2022 Hepatic function panel HEPATIC FUNCTION PANEL 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 [facility] on above: Ordered: 07/23/2022 End: 11-12-2022 Introduction needle/intracatheter vein IV INSERTION Procedures Routine One time for 1 Occurrences starting 11/12/2022 until 11/12/2022 [facility] [employer] Work Phone: Comment on above: One time for 1 Occurrences starting 10/30 until 11/12/2022 Tb cell mediated antign respnse gamma interferon TUBERCULOSIS- CELL MEDIATED I* 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 Ordered: 07/23/2022 [facility] [employer] Work Phone: Comment on above: Ordered: 07/23/2022 End: 08-08-2023 Urnls dip stick/tablet rgnt auto w/o microscopy URINALYSIS,AUTO-IN OFFICE Lab STAT One time for 1 Occurrences starting 08/08/2023 until 08/08/2023 [facility] Work Phone: Comment on above: One time for 1 Occurrences starting 07/2023 until 08/08/2023 Immunizations Immunization Date Immunization Notes Care Provider Devan [facility] 10-14-2023 Influenza, injectabl e, Madin Engelhard Canine Kidney, preservative free, quadrivalent 3 [facility] 10-14-2023 influenza virus vaccine, unspecified formulation To Assigned [facility] 09-12-2022 Influenza, injectabl e, [place] Canine Kidney, preservative free, quadrivalent Regina Bright MD Work Phone: [facility] 09-12-2022 influenza virus vaccine, unspecified formulation Joseph Sta[facility] 11-06-2021 influenza, injectabl e, quadrivalent, preservative free Alie Harper MD Work Phone: [facility] 11-06-2021 pneumococcal polysaccharide vaccine, 23 valent Alie Harper MD Work Phone: [facility] 11-06-2021 influenza virus vaccine, unspecified formulation [facility] 08-28-2021 Moderna Monovalent ( 12+ yrs) COVID-19 vaccine, mRNA, spike protein, LNP, PF, 100 mcg/0.5 mL ([id number]) Regina Bright MD Work Phone: [facility] 03-27-2021 Moderna SARS-COV-2 (COVID-19) vaccine, mRNA, spike protein, LNP, preservative free, 100 mcg/0.5 mL (primary) or 50 mcg/0.25 mL (booster) ([id number]) Alie Harper MD Work Phone: [facility] 02-27-2021 Moderna SARS-COV-2 (COVID-19) vaccine, mRNA, spike protein, LNP, preservative free, 100 mcg/0.5 mL (primary) or 50 mcg/0.25 mL (booster) ([id number]) Alie Harper MD Work Phone: [facility] 08-31-2020 influenza, injectabl e, quadrivalent, preservative free Alie Harper MD Work Phone: [facility] [facility] 09-21-2019 influenza, injectabl e, quadrivalent, preservative free Alie Harper MD Work Phone: [facility] 09-21-2019 pneumococcal conjuga te vaccine, 13 valent Alie Harper MD Work Phone: [facility] 08-16-2018 influenza, injectabl e, quadrivalent, preservative free Alie Harper MD Work Phone: [facility] 12-23-2017 influenza, injectabl e, quadrivalent, preservative free Alie Harper MD Work Phone: [facility] 08-18-2016 influenza, injectabl e, quadrivalent, preservative free Alie Harper MD Work Phone: [facility] 01-10-2016 pneumococcal polysaccharide vaccine, 23 valent Alie Harper MD Work Phone: [facility] Work Phone: 01-10-2016 tetanus toxoid, redu annalise diphtheria toxoid, and acellular pertussis vaccine, adsorbed Alie Harper MD Work Phone: [facility] Payers Date Payer Category Payer Self-pay 2022 Unknown [id number] 2022 Private Health Insurance [id number] 2020 Medicaid [id number] 2020 Medicare [id number] 2019 Medicare [id number] 2017 Medicare [id number] 2011 Medicare [id number] 1975 Unknown [id number] 2.16.84 [id number] 1975 Unknown [id number] 2.16.8 [id number] 1975 Unknown [id number] 2.16.8 [id number] 1975 Unknown [id number] 2.16. [id number] 1975 Unknown [id number] 2.16. [id number] 1975 Unknown [id number] 2.16. [id number] 1975 Unknown [id number] 2.16. [id number] 1975 Unknown [id number] 2.16. [id number] 1975 Unknown [id number] 2.16. [id number] 1959 Medicaid [id number] 1959 Medicare [id number] Unknown [id number] 2.16.8 [id number] Unknown [id number] 2.16.8 [id number] Social History Date Type Detail Facility Start: 12-18-2017 Tobacco smoking status NDIS Smokes tobacco daily [facility] Work Phone: History of tobacco use [facility] Start: 12-18-2017 End: 09-22-2022 Cigarettes smoked current (pack per day) - [...] [facility] Start: 09-23-2022 History SDOH Social Connections Sabianist 1 [facility] Start: 09-23-2022 History SDOH Social Connections Membership 2 [facility] Start: 09-23-2022 History SDOH Social Connections Living 3 [facility] Start: 09-22-2022 Education 11 [facility] Start: 11-02-2022 End: 02-13-2023 Exposure to SARS-CoV-2 (event) Not sure [facility] Start: 12-05-2022 Tobacco smoking status NHIS Ex-smoker [facility] History of tobacco use Current smoker [facility] Start: 05-20-2021 Gender identity Identifies as female gender (finding) [facility] Start: 05-20-2021 Sexual orientation Heterosexual (finding) [facility] Tobacco smoking status No Smokin g Status Entered [facility] Start: 09-22-2022 End: 08-13-2023 Sex Assigned At Female [facility] Within the last year , have you been afraid of your partner or ex-partner? No [facility] Are you now , , , , never or living with a partner? [facility] How hard is it for y ou to pay for the very basics like food, housing, medical care, and heating Somewhat hard [facility] Do you feel stress - tense, restless, nervous, or anxious, or unable to sleep at night because your mind is troubled all the time - these days [OSQ] To some extent [facility] (I/We) worried wheth er (my/our) food would run out before (I/we) got money to buy more. Never true [facility] In the past 12 month s, has lack of transportation kept you from medical appointments or from getting medications? No [facility] Clinical Notes 05-26-2022 to 06-23-2024 Telephone Encounter - Rosette Zee - 06/23/2024 1:40 PM EDTTelephone Encounter - Rosette Zee - 06/23/2024 1:40 PM EDTTelephone Encounter - Ronaldo Castillo - 06/22/2024 10:11 AM EDT Note Date & Type Note Facility 06-23-2024 Telephone encounter Note Referral queue updated. [facility] 06-23-2024 Miscellaneous Notes Referral queue updated. Pt called in. She wanted to let the office know that her insurance is messed up and she will not be scheduling a rheum appt until this is all taken care of. The patient will call back once the insurance is fixed. Pt stated thanks for calling. Please contact pt and schedule with the order in the Active Requests tab. documented in this encounter [facility] 06-22-2024 Telephone encounter Note Pt called in. She wanted to let the office know that her insurance is messed up and she will not be scheduling a rheum appt until this is all taken care of. The patient will call back once the insurance is fixed. Pt stated thanks for calling. [facility] 06-22-2024 Miscellaneous Notes Pt called in. She wanted to let the office know that her insurance is messed up and she will not be scheduling a rheum appt until this is all taken care of. The patient will call back once the insurance is fixed. Pt stated thanks for calling. Please contact pt and schedule with the order in the Active Requests tab. documented in this encounter [facility] 06-20-2024 Telephone encounter Note Please contact pt and schedule with the order in the Active Requests tab. [facility] 06-20-2024 Miscellaneous Notes Please contact pt and schedule with the order in the Active Requests tab. documented in this encounter [facility] 08-13-2023 History of Present illness Narrative Images from the original note were not included. Gastroenterology Clinic Visit Abi PaulinaDO [address] [place] [address] Attending Physician: Dr. Bethany Johnson MD PCP: [...] Fellow, PGY-4 Division of Gastroenterology & Hepatology [facility] GI ATTENDING: Patient seen and examined. Case discussed and reviewed with Dr. Vega. Agree with history/physical/note/findings and plan as outlined above. Bethany Johnson M.D. Patient was identified by name and date of . George GrayedwardPatient at risk for falls:No Falls Risk protocol implemented: No documented in this encounter [facility] 08-08-2023 Physician Emergency department Note Abi Abdul: CT a/pw/ NAD, d dimer less than 200 making PE or AD less likley, pt's feeling better, re exam: abdomen w/ + BS, ND, mild LUQ tenderness, no guarding/rebound. Stable for outpatient management [facility] Work Phone: 08-08-2023 Emergency department Note Abi Abdul: CT a/pw/ NAD, d dimer less than [...] BM's ok .No UTI symptoms. Went to [facility] for this problem, Exam, X-rays done. Dx [...] Adan Martínez MD documented in this encounter [facility] 08-08-2023 Hospital Discharge instructions Paulina Jones DO [...] this visit: None documented in this encounter [facility] 08-08-2023 History of Present illness Narrative Images [...] is set to 08/21/23 Maya Andrews CPhT [facility] Specialty Pharmacy [phone] option 3 documented in this encounter [facility] 08-08-2023 Note Physician Triage Not e The [...] BM's ok .No UTI symptoms. Went to [facility] for this problem, Exam, X-rays done. Dx [...] ATTENDING/RESIDENT/PHYSICIAN/CN P/PA NOTATION Adan Martínez MD [facility] 08-08-2023 Physician Emergency department Note Physician Triage [...] BM's ok .No UTI symptoms. Went to [facility] for this problem, Exam, X-rays done. Dx [...] OTHER ATTENDING/RESIDENT/PHYSICIAN/CN P/PA NOTATION Adan Martínez MD [facility] Work Phone: 08-07-2023 Note SPECIALTY PHARMACY [facility] (Department: DERMATOLOGY) Prior Authorization Required. Patient Information: Heather Cantu McLynnlambert 1975 Specialty Medication Assessment: Medication Humira 40 mg/0.4ml Pen - Inject 0.4 ml under the skin every 14 days Current PA is set to 08/21/23 Maya Andrews CPhT [facility] Specialty Pharmacy [phone] option 3 [facility] 07-22-2023 History of Present illness Narrative Images from the original note were not included. Hi Dr. Grady, Please see below denial from this patient's insurance for the Vtama Cream: Please let me know how you would like to proceed. Joseph Images from the original note were not included. SPECIALTY PHARMACY - Prior Auth Denied- PHARMACY BENEFIT 07/22/23 1456 Specialty Med Prior Auth Info - Primary Specialty Med PA Outcome Denied Payor Approval Rx Benefit Insurance Payor [employer] Dual Medicare PA Number [id number] Denial Reason Required Step Therapy PA Notes [...] daily Unit of Measure g Is Approval [facility] Specific? N Thank you, Maya Andrews CPhT SPECIALTY PHARMACY - Prior Auth Submitted- PHARMACY BENEFIT Medication and dosing: vtama 1% cream - apply 2 g externally daily Insurance has been verified to be: [facility] dual medicare (optumrx) PA submitted on date: 07/22/2023 Method submitted: epa Acosta: [id number] Pharmacy will addend this encounter with response [...] Administered Influenza, Injectable, MDCK, Preservative Free, Quadrivalent (YRF=593) 09/12/2022 Influenza, injectable, quadrivalent, preservative free (IIV4) (GAZ=238) 08/18/2016, 12/23/2017, 08/16/2018, 09/21/2019, 08/31/2020, 11/06/2021 Moderna Bivalent (6m-5y dose 1 or 2, 25 mcg/0.25 mL; 6-11y any dose, 25 mcg/0.25 mL; 12+ yrs any dose, 50 mcg/0.5 mL) COVID-19, mRNA, (KHW=109) 01/06/2023 Moderna Monovalent (12+ yrs) COVID-19 vaccine, mRNA, spike protein, LNP, PF, 100 mcg/0.5 mL (TYH=745) 02/27/2021, 03/27/2021, 08/28/2021 Pneumococcal conjugate 13 valent (PCV13) (NEI=265) 09/21/2019 Pneumococcal polysaccharide 23 Valent (PPSV23) (CVX=33) 01/10/2016, 11/06/2021 Tdap (WYX=302) 01/10/2016 Is the request for initial or [...] treated ____ Thank you, Joseph Alfredo, PharmD, [facility] [phone], Option #3 SPECIALTY PHARMACY REFERRAL (Department: DERMATOLOGY) Prior Authorization Required. Patient Information: Heather Cantu McRaimundo 1975 Specialty Medication Assessment: Medication Vtama 1% cream - Apply 2 g externally daily Maya Andrews CPhT [facility] Specialty Pharmacy [phone] option 3 documented in this encounter [facility] 07-22-2023 History of Present illness Narrative Images [...] Insurance Payor [employer] Dual Medicare PA Number [id number] Denial Reason Required Step Therapy PA Notes [...] daily Unit of Measure g Is Approval [facility] Specific? N Thank you, Maya Andrews CPhT SPECIALTY PHARMACY - Prior Auth Submitted- PHARMACY BENEFIT Medication and dosing: vtama 1% cream - apply 2 g externally daily Insurance has been verified to be: [facility] dual medicare (optumrx) PA submitted on date: 07/22/2023 Method submitted: [facility] Acosta: [id number] Pharmacy will addend this encounter with response [...] Administered Influenza, Injectable, MDCK, Preservative Free, Quadrivalent (XMH=687) 09/12/2022 Influenza, injectable, quadrivalent, preservative free (IIV4) (TJT=893) 08/18/2016, 12/23/2017, 08/16/2018, 09/21/2019, 08/31/2020, 11/06/2021 Moderna Bivalent (6m-5y dose 1 or 2, 25 mcg/0.25 mL; 6-11y any dose, 25 mcg/0.25 mL; 12+ yrs any dose, 50 mcg/0.5 mL) COVID-19, mRNA, (KER=703) 01/06/2023 Moderna Monovalent (12+ yrs) COVID-19 vaccine, mRNA, spike protein, LNP, PF, 100 mcg/0.5 mL (FEU=888) 02/27/2021, 03/27/2021, 08/28/2021 Pneumococcal conjugate 13 valent (PCV13) (GGF=373) 09/21/2019 Pneumococcal polysaccharide 23 Valent (PPSV23) (CVX=33) 01/10/2016, 11/06/2021 Tdap (DBS=809) 01/10/2016 Is the request for initial or [...] treated ____ Thank you, Joseph Alfredo, PharmD, [facility] [phone], Option #3 SPECIALTY PHARMACY REFERRAL (Department: DERMATOLOGY) Prior Authorization Required. Patient Information: Heather Cantu Nat 1975 Specialty Medication Assessment: Medication Vtama 1% cream - Apply 2 g externally daily Maya Andrews CPhT [facility] Specialty Pharmacy [phone] option 3 documented in this encounter [facility] 07-22-2023 History of Present illness Narrative Images from the original note were not included. SPECIALTY PHARMACY - Prior Auth Denied- PHARMACY BENEFIT 07/22/23 1455 Specialty Med Prior Auth Info - Primary Specialty Med PA Outcome Denied Payor Approval Rx Benefit Insurance Payor [employer] Dual Medicare PA Number [id number] Denial Reason Required Step Therapy PA Notes [...] daily Unit of Measure g Is Approval [facility] Specific? N Thank you, Maya Andrews CPhT SPECIALTY PHARMACY - Prior Auth Submitted- PHARMACY BENEFIT Medication and dosing: vtama 1% cream - apply 2 g externally daily Insurance has been verified to be: [facility] dual medicare (optumrx) PA submitted on date: 07/22/2023 Method submitted: [facility] Acosta: [id number] Pharmacy will addend this encounter with response from plan. Thank you, Maya Andrews CPhT Images from the original note were not included. Heather Cantu McRaimundo 1975 SPECIALTY REFERRAL Medication: Tapinarof 1 % CREA Apply 2 g externally daily. Prescriber: Shira Grady DO ( ) Dermatology Dept Indication for treatment (ICD-10): Psoriasis (L40.9) Allergies Allergen Reactions Morphine Confusion Naproxen Upset Stomach Penicillins Rash Toradol [Ketorolac Tromethamine] Vomiting Tramadol Upset Stomach Weight was 79.4 kg on 02/13/2023 Immunization History Administered Date(s) Administered Influenza, Injectable, MDCK, Preservative Free, Quadrivalent (FGS=373) 09/12/2022 Influenza, injectable, quadrivalent, preservative free (IIV4) (ABE=990) 08/18/2016, 12/23/2017, 08/16/2018, 09/21/2019, 08/31/2020, 11/06/2021 Moderna Bivalent (6m-5y dose 1 or 2, 25 mcg/0.25 mL; 6-11y any dose, 25 mcg/0.25 mL; 12+ yrs any dose, 50 mcg/0.5 mL) COVID-19, mRNA, (OXU=781) 01/06/2023 Moderna Monovalent (12+ yrs) COVID-19 vaccine, mRNA, spike protein, LNP, PF, 100 mcg/0.5 mL (VLP=532) 02/27/2021, 03/27/2021, 08/28/2021 Pneumococcal conjugate 13 valent (PCV13) (SLK=977) 09/21/2019 Pneumococcal polysaccharide 23 Valent (PPSV23) (CVX=33) 01/10/2016, 11/06/2021 Tdap (MGI=647) 01/10/2016 Is the request for initial or [...] diagnosed and treated ____ Thank you, Joseph Alfredo PharmD, [facility] Specialty Pharm[facility] [phone], Option #3 SPECIALTY PHARMACY REFERRAL (Department: DERMATOLOGY) Prior Authorization Required. Patient Information: Heather Cantu Nat 1975 Specialty Medication Assessment: Medication Vtama 1% cream - Apply 2 g externally daily Maya Andrews CPhT [facility] Specialty Pharmacy [phone] option 3 documented in this encounter [facility] 07-22-2023 History of Present illness Narrative SPECIALTY PHARMACY - Prior Auth Submitted- PHARMACY BENEFIT Medication and dosing: vtama 1% cream - apply 2 g externally daily Insurance has been verified to be: [facility] dual medicare (optumrx) PA submitted on date: 07/22/2023 Method submitted: [facility] Acosta: [id number] Pharmacy will addend this encounter with response from plan. Thank you, Maya Andrews CPhT Images from the original note were not included. Heather Cantu Nat 1975 SPECIALTY REFERRAL Medication: Tapinarof 1 % CREA Apply 2 g externally daily. Prescriber: Shira Grady DO ( ) Dermatology Dept Indication for treatment (ICD-10): Psoriasis (L40.9) Allergies Allergen Reactions Morphine Confusion Naproxen Upset Stomach Penicillins Rash Toradol [Ketorolac Tromethamine] Vomiting Tramadol Upset Stomach Weight was 79.4 kg on 02/13/2023 Immunization History Administered Date(s) Administered Influenza, Injectable, MDCK, Preservative Free, Quadrivalent (PMN=284) 09/12/2022 Influenza, injectable, quadrivalent, preservative free (IIV4) (VUN=029) 08/18/2016, 12/23/2017, 08/16/2018, 09/21/2019, 08/31/2020, 11/06/2021 Moderna Bivalent (6m-5y dose 1 or 2, 25 mcg/0.25 mL; 6-11y any dose, 25 mcg/0.25 mL; 12+ yrs any dose, 50 mcg/0.5 mL) COVID-19, mRNA, (VPL=242) 01/06/2023 Moderna Monovalent (12+ yrs) COVID-19 vaccine, mRNA, spike protein, LNP, PF, 100 mcg/0.5 mL (ESG=234) 02/27/2021, 03/27/2021, 08/28/2021 Pneumococcal conjugate 13 valent (PCV13) (AIB=183) 09/21/2019 Pneumococcal polysaccharide 23 Valent (PPSV23) (CVX=33) 01/10/2016, 11/06/2021 Tdap (SZA=553) 01/10/2016 Is the request for initial or [...] and treated ____ Thank you, Joseph Alfredo, PharmBrian, [facility] [phone], Option #3 SPECIALTY PHARMACY REFERRAL (Department: DERMATOLOGY) Prior Authorization Required. Patient Information: Heather Cantu McLynnlambert 1975 Specialty Medication Assessment: Medication Vtama 1% cream - Apply 2 g externally daily Maya Andrews CPhT [facility] Specialty Pharmacy [phone] option 3 documented in this encounter [facility] 07-22-2023 Note Heather Cantu Nat 1974 SPECIALTY [...] Administered Influenza, Injectable, MDCK, Preservative Free, Quadrivalent (FMB=410) 09/12/2022 Influenza, injectable, quadrivalent, preservative free (IIV4) (WSW=300) 08/18/2016, 12/23/2017, 08/16/2018, 09/21/2019, 08/31/2020, 11/06/2021 Moderna Bivalent (6m-5y dose 1 or 2, 25 mcg/0.25 mL; 6-11y any dose, 25 mcg/0.25 mL; 12+ yrs any dose, 50 mcg/0.5 mL) COVID-19, mRNA, (BPU=508) 01/06/2023 Moderna Monovalent (12+ yrs) COVID-19 vaccine, mRNA, spike protein, LNP, PF, 100 mcg/0.5 mL (SFQ=152) 02/27/2021, 03/27/2021, 08/28/2021 Pneumococcal conjugate 13 valent (PCV13) (VUI=399) 09/21/2019 Pneumococcal polysaccharide 23 Valent (PPSV23) (CVX=33) 01/10/2016, 11/06/2021 Tdap (SXZ=963) 01/10/2016 Is the request for initial or [...] face, eyes (more content not included)... [facility] 07-22-2023 Note SPECIALTY PHARMACY [facility] (Department: DERMATOLOGY) Prior Authorization Required. Patient Information: Heather Johns 1975 Specialty Medication Assessment: Medication Vtama 1% cream - Apply 2 g externally daily Maya Andrews [facility] [phone] option 3 [facility] 07-21-2023 History of Present illness Narrative Documentation: [...] patient Pt advised to contact me over Jixeehart or call office at [phone] if unable to get your medications and with questions or concerns. Return to clinic in 3 months or sooner if needed 07/20/2023, 9:10 PM. Shira Grady DO ------ SCRIBE ATTESTATION ----- 07/20/2023, 9:10 PM This note is prepared by Rinku Lozano acting as Scribe for Dr. Shira Grady DO. All medical record entries made by the Scribe were at my direction and personally dictated by me. I have reviewed the record and confirm that the note above accurately reflects all work, treatment, procedures, and medical decision making performed by me, Shira Grady DO. documented in this encounter [facility] 07-13-2023 Miscellaneous Notes Called pt to let her know that she needs an follow up appointment per Dr. Grady. Pt states she is uncomfortable coming in for a visit and [facility] is the closest location for her. Pt [...] Please contact. Thanks! documented in this encounter [facility] 07-13-2023 Telephone encounter Note Called pt to let her know that she needs an follow up appointment per Dr. Grady. Pt states she is uncomfortable coming in for a visit and [facility] is the closest location for her. Pt wanting virtual appointment. Advised pt that I will reach out to provider to see if it is okay for a virtual appointment. Pt verbalized understanding. April Galo RN July 13, 2023 [facility] 07-10-2023 Telephone encounter Note Pt calling, requesting to speak with Dr. Bright. Pt states she hadn't taken the Adalimumab (Humira Pen) 40 MG/0.4ML PNKT for over two months, but starting taking it again two weeks ago. Requesting a call to advise on how often this med should be taken and if she should take it when having no symptoms. Please contact. Thanks! [facility] 04-08-2023 Telephone encounter Note Most recent visit [...] 3 years, up to 5 values) None [facility] Work Phone: 04-08-2023 Telephone encounter Note Most recent visit in Dermatology was on 11/12/2022 with Regina Bright MD [facility] Work Phone: 04-08-2023 Miscellaneous Notes Most recent [...] This order will be electronically sent to [facility] Most recent visit in Dermatology was [...] Pharmacy related questions may be directed to: [phone] (MEDS) option 3 Thank you, Ronit Zapata CPhT [facility] Specialty Pharmacy [phone] (MEDS) option 3 documented in this encounter [facility] 04-08-2023 Telephone encounter Note SPECIALTY PHARMACY - Order Request for future fills. Requested Prescriptions Pending Prescriptions Disp Refills Adalimumab (Humira Pen) 40 MG/0.4ML PNKT 2 Each 3 Sig: Inject 40 mg under the skin every 14 days. This order will be electronically sent to [facility] Most recent visit in Dermatology was [...] Pharmacy related questions may be directed to: [phone] (MEDS) option 3 Thank you, Ronit Zapata CPhT [facility] Specialty Pharmacy [phone] (MEDS) option 3 [facility] 02-19-2023 History of Present illness Narrative Images from the original note were not included. SPECIALTY PHARMACY - Prior Auth Approved- PHARMACY BENEFIT 02/19/23 1305 Specialty Med Prior Auth Info - Primary Specialty Med PA Outcome Approval received Payor Approval Rx Benefit Insurance Payor [employer] PA Number [id number] Effective Start Date 02/19/23 Effective End Date 08/21/23 How was approval recieved? Alanis CRUZ Notes New Insurance Specialty Prior Auth Medication Details - Primary Medication(s) Humira 40 mg/0.4ml Pen Authorized Quantity 0.4 Unit of Measure mL Is Approval [facility] Specific? N The pharmacy will contact patient Heather Johns and update her on the approval status. Pharmacy to contact patient regarding next step for medication fill. Encounter to be routed to appropriate ultrasound technician/pharmacist for medication fill outreach. Patient questions may be directed to: [phone] option 3 Thank you, Maya Andrews CPhT 02/18/2023 SPECIALTY PHARMACY - Prior Auth Submitted- PHARMACY BENEFIT Medication and dosing: Humira 40 mg/0.4ml pen - Inject 40 mg under the skin every 10 days Insurance has been verified to be: [facility] PA submitted on date: 02.18.2023 Method submitted: alanis Acosta: [id number] Pharmacy will addend this encounter with response [...] under the skin every 10 days Insurance: [employer]dee[employer]emanuel Prescriber: Gavi Nixon prior authorization has been approved beginning date 04/02/2022 until end date 07/02/2023. ( ) The pharmacy will contact patient Heather Johns and update her on the approval status. Pharmacy to contact patient regarding next step for medication fill. Encounter to be routed to appropriate ultrasound technician/pharmacist for medication fill outreach. Patient questions may be directed to: [phone] option 3 Thank you, Maya Andrews CPhT 06/21/2022 SPECIALTY PHARMACY REFERRAL (Department: Dermatology) Received request to process prior authorization RENEWAL for HUMIRA for this patient: (Current prior authorization will 07/05/22.) Patient Information: Heather Johns [address] [place] [id number] Insurance on file: ALBER ID: [id number] BIN: [id number] PCN: MEDDPRIME Group: [id number] Insurance on file: [place]ARK ID: [id number] BIN: [id number] PCN: IS Group: [id number] Allergies Allergen Reactions [...] facility-administered medications on file prior to visit. [facility] Medical History Past Medical History: Diagnosis Date [...] 2019 for psoriasis, started on Humira. Today, amy presents for follow up. Pt has had [...] accurate as listed in chart. Joseph Alfredo [facility] [phone] option 3 documented in this encounter [facility] 02-19-2023 History of Present illness Narrative Images from the original note were not included. SPECIALTY PHARMACY - Prior Auth Approved- PHARMACY BENEFIT 02/19/23 1305 Specialty Med Prior Auth Info - Primary Specialty Med PA Outcome Approval received Payor Approval Rx Benefit Insurance Payor [employer] PA Number [id number] Effective Start Date 02/19/23 Effective End Date 08/21/23 How was approval recieved? Alanis workquepop CRUZ Notes New Insurance Specialty Prior Auth Medication Details - Primary Medication(s) Humira 40 mg/0.4ml Pen Authorized Quantity 0.4 Unit of Measure mL Is Approval [facility] Specific? N The pharmacy will contact patient Heather Johns and update her on the approval status. Pharmacy to contact patient regarding next step for medication fill. Encounter to be routed to appropriate ultrasound technician/pharmacist for medication fill outreach. Patient questions may be directed to: [phone] option 3 Thank you, Maya Andrews CPhT 02/18/2023 SPECIALTY PHARMACY - Prior Auth Submitted- PHARMACY BENEFIT Medication and dosing: Humira 40 mg/0.4ml pen - Inject 40 mg under the skin every 10 days Insurance has been verified to be: [facility] PA submitted on date: 02.18.2023 Method submitted: alanis Acosta: [id number] Pharmacy will addend this encounter with response [...] under the skin every 10 days Insurance: [place]/emanuel Prescriber: Gavi Nixon prior authorization has been approved beginning date 04/02/2022 until end date 07/02/2023. ( ) The pharmacy will contact patient Heather Johns and update her on the approval status. Pharmacy to contact patient regarding next step for medication fill. Encounter to be routed to appropriate ultrasound technician/pharmacist for medication fill outreach. Patient questions may be directed to: [phone] option 3 Thank you, Maya Andrews CPhT 06/21/2022 SPECIALTY PHARMACY REFERRAL (Department: Dermatology) Received request to process prior authorization RENEWAL for HUMIRA for this patient: (Current prior authorization will 07/05/22.) Patient Information: Heather Johns 1975 [address] [facility] [address] Insurance on file: ALBER ID: [id number] BIN: [id number] PCN: MEDDPRIME Group: [id number] Insurance on file: CAREMARK ID: [id number] BIN: [id number] PCN: IS Group: [id number] Allergies Allergen Reactions [...] facility-administered medications on file prior to visit. H Medical History Past Medical History: Diagnosis Date [...] for psoriasis, started on Humira. Today, [facility] presents for follow up. Pt has had [...] accurate as listed in chart. Joseph Alfredo [facility] [phone] option 3 documented in this encounter [facility] 02-18-2023 History of Present illness Narrative SPECIALTY PHARMACY - Prior Auth Submitted- PHARMACY BENEFIT Medication and dosing: Humira 40 mg/0.4ml pen - Inject 40 mg under the skin every 10 days Insurance has been verified to be: [facility] PA submitted on date: 02.18.2023 Method submitted: [facility] Acosta: [id number] Pharmacy will addend this encounter with response [...] least annually. Thank you, Joseph Alfredo, PharmD, [facility] [phone], Option #3 documented in this encounter [facility] 01-30-2023 History of Present illness Narrative Specialty [...] least annually. Thank you, Joseph Alfredo, PharmD, [facility] [phone], Option #3 documented in this encounter [facility] 12-18-2022 Telephone encounter Note Most recent visit [...] 3 years, up to 5 values) None [employer] Work Phone: 12-18-2022 Miscellaneous Notes Most recent [...] This order will be electronically sent to [facility] Most recent visit in Dermatology was [...] Pharmacy related questions may be directed to: [phone] (MEDS) option 3 Thank you, Ronit Zapata [facility] Specialty Pharmacy [phone] (MEDS) option 3 documented in this encounter [facility] 12-17-2022 Telephone encounter Note SPECIALTY PHARMACY - Order Request for future fills. Requested Prescriptions Pending Prescriptions Disp Refills Adalimumab (Humira Pen) 40 MG/0.4ML PNKT 2 Each 3 Sig: Inject 40 mg under the skin every 14 days. This order will be electronically sent to [facility] Most recent visit in Dermatology was [...] Pharmacy related questions may be directed to: [phone] (MEDS) option 3 Thank you, Ronit Zapata [facility] Specialty Pharmacy [phone] (MEDS) option 3 [facility] 12-05-2022 Instructions Mason Walls MD - 12/05/2022 [...] Gastric emptying study. documented in this encounter [facility] 12-05-2022 History of Present illness Narrative Gastroenterology Clinic Visit PATIENT, SELF No address on file Attending Physician: Dr. Mariusz Kruger MD PCP: Leopoldo Woods APRN-RACHEL Heather Johns is a 47 year old [...] to 5 values) None EGD 2016 Procedure(s): ESOPHAGOGASTRODUODENOSCOPY MODERATE SEDATION: Oxygen 2L/NC, Demerol [...] procedure well. Dysphagia, unspecified type (Primary Diagnosis) [1371244] Gastroesophageal reflux disease without esophagitis [885028] Early satiety [780.94.ICD-9-CM] MICHELLE PATH SPECIMEN SENT: [...] Walls MD Division of Gastroenterology & Hepatology [facility] Teaching Physician Note I saw and evaluated the patient. I personally obtained the acosta and critical portions of the history and physical exam. I reviewed the fellow's documentation and discussed the patient with the fellow. I agree with the fellow's medical decision making as documented in the fellow's note. Dr. Mariusz Kruger Patient was identified by name and date of . Arielle Marciano Patient at risk for falls:Yes Falls Risk protocol implemented: no documented in this encounter [facility] 11-12-2022 Hospital Discharge instructions Aman Wright PA-C - 11/12/2022 9:17 PM EST Please follow-up with your primary care physician. Take Tylenol Motrin as needed for symptoms. The following attachments cannot be sent through Care Everywhere.Flu Discharge Instructions, Adult (Moroccan)documented in this encounter [facility] 11-12-2022 Physician Emergency department Note Images from the original note were not included. Emergency Department Attending Note HISTORY OF PRESENT ILLNESS No chief complaint on file. not needed - patient preferred language is Moroccan. HIPAA:Verbal permission granted from patient to discuss [...] HS Troponin I: <4 Troponin is negative [NY] ED Course User Index [NY] Aman Wright PA-C I have provided 1 [...] However, errors can occur. ANTONIO Mesa PA-C [employer] Work Phone: 11-12-2022 Emergency department Note Images from the original note were not included. Emergency Department Attending Note HISTORY OF PRESENT ILLNESS No chief complaint on file. not needed - patient preferred language is Moroccan. HIPAA:Verbal permission granted from patient to discuss [...] HS Troponin I: <4 Troponin is negative [NY] ED Course User Index [NY] Aman Wright PA-C I have provided 1 [...] ANTONIO Mesa PA-C documented in this encounter [facility] 11-12-2022 History of Present illness Narrative Documentation: [...] Counseling/educating the patient/family/caregiver Ordering/interpreting (medications, tests, procedures) [facility] Follow-up visit CC: Psoriasis HPI: [...] More than three times a week Attends Christian Services: Never Active Member of Clubs or [...] clinic in 2 months. Regina Bright MD [facility] Dermatology documented in this encounter [facility] 10-02-2022 Telephone encounter Note Patient notes that she had a fever, had diarrhea, but is now better. She is interested in switching Humira to another option. Counseled patient will need a video visit prior to this. Ok to resume humira at this time, q14 day dosing. External lab order for quantiferon placed (pt to obtain it at [facility]). Note patient unwilling to come to [facility] for labs due to concern over infection. [facility] 10-02-2022 Miscellaneous Notes Patient notes that she had a fever, had diarrhea, but is now better. She is interested in switching Humira to another option. Counseled patient will need a video visit prior to this. Ok to resume humira at this time, q14 day dosing. External lab order for quantiferon placed (pt to obtain it at [facility]). Note patient unwilling to come to [facility] for labs due to concern over infection. documented in this encounter [facility] 07-23-2022 History of Present illness Narrative Documentation: Mode: Telephone Patient Patient Work Phone: Patient Cell Preferred phone: [phone] Consent: I confirmed patient understanding of the risks and benefits of telehealth visits and obtained consent to proceed with the telehealth visit. Location of Patient: Home of patient [facility] Follow-up visit CC: Follow up [...] visit in 1 month. Regina Bright MD [facility] Dermatology SCRIBE ATTESTATION This note is precharted by Nick Munoz acting as scribe for Regina Bright MD. Scribe was not present during visit. documented in this encounter [facility] 07-02-2022 Telephone encounter Note Images from the original note were not included. SPECIALTY PHARMACY - Prior Auth Approved Medication and dosing: Humira 40 mg/0.4ml Pen - Inject 40 mg under the skin every 10 days Insurance: [employer]/emanuel Prescriber: Gavi Nixon prior authorization has been approved beginning date 04/02/2022 until end date 07/02/2023. ( ) The pharmacy will contact patient Heather Johns and update her on the approval status. Pharmacy to contact patient regarding next step for medication fill. Encounter to be routed to appropriate ultrasound technician/pharmacist for medication fill outreach. Patient questions may be directed to: [phone] option 3 Thank you, Maya Andrews CPhT [facility] 07-02-2022 Miscellaneous Notes Images from the original note were not included. SPECIALTY PHARMACY - Prior Auth Approved Medication and dosing: Humira 40 mg/0.4ml Pen - Inject 40 mg under the skin every 10 days Insurance: [employer]/emanuel Prescriber: Gavi Nixon prior authorization has been approved beginning date 04/02/2022 until end date 07/02/2023. ( ) The pharmacy will contact patient Heather Johns and update her on the approval status. Pharmacy to contact patient regarding next step for medication fill. Encounter to be routed to appropriate ultrasound technician/pharmacist for medication fill outreach. Patient questions may be directed to: [phone] option 3 Thank you, Maya Andrews CPhT SPECIALTY PHARMACY REFERRAL (Department: Dermatology) Received request to process prior authorization RENEWAL for HUMIRA for this patient: (Current prior authorization will 07/05/22.) Patient Information: Heather Johns 1975 [address] [facility] [address] Insurance on file: ALBER ID: [id number] BIN: [id number] PCN: MEDDPRIME Group: [id number] Insurance on file: CAREMARK ID: [id number] BIN: [id number] PCN: IS Group: [id number] Allergies Allergen Reactions [...] for psoriasis, started on Humira. Today, [facility] presents for follow up. Pt has had [...] as listed in chart. Joseph Alfredo RPh [facility] Specialty Pharmacy [phone] option 3 documented in this encounter [facility] 06-24-2022 Telephone encounter Note SPECIALTY PHARMACY REFERRAL (Department: Dermatology) Received request to process prior authorization RENEWAL for HUMIRA for this patient: (Current prior authorization will 07/05/22.) Patient Information: Heather Cantu Nat [address] [place] [address] Insurance on file: ALBER ID: [id number] BIN: [id number] PCN: MEDDPRIME Group: [id number] Insurance on file: [place]EMARK ID: [id number] BIN: [id number] PCN: IS Group: [id number] Allergies Allergen Reactions [...] for psoriasis, started on Humira. Today, [facility] presents for follow up. Pt has had [...] as listed in chart. Joseph Alfredo RPh [facility] Specialty Pharmacy [phone] option 3 [facility] 06-24-2022 Miscellaneous Notes SPECIALTY PHARMACY REFERRAL (Department: Dermatology) Received request to process prior authorization RENEWAL for HUMIRA for this patient: (Current prior authorization will 07/05/22.) Patient Information: Heather Johns 1975 [address] [facility] [address] Insurance on file: ALBER ID: [id number] BIN: [id number] PCN: MEDDPRIME Group: [id number] Insurance on file: CAREMARK ID: [id number] BIN: [id number] PCN: IS Group: [id number] Allergies Allergen Reactions [...] for psoriasis, started on Humira. Today, [facility] presents for follow up. Pt has had [...] as listed in chart. Joseph Alfredo RPh [facility] Specialty Pharmacy [phone] option 3 documented in this encounter [facility] 05-26-2022 History of Present illness Narrative Needs [...] year old Pt here for Psoriasis, unspecified [0230032] Orders & Meds Signed During This Encounter Adalimumab 40 MG/0.4ML PNKT PT educated about above condition. Recheck as needed for persistence, worsening, or appearance of new symptoms. Pt voiced understanding and agrees to plan. Alie Harper MD documented in this encounter [facility] note No data available for this section [facility] Evaluation note Diagnosis Psoriasis, unspecified- Primary documented [...] instructions No data available for this section [facility] No data available for this section [facility] Summary Purpose Family History No Family History Records FoundNo Family History Records Found No data available for this section No Family History Records FoundNo Family History Records FoundNo Family History Records FoundNo Family History Records FoundNo Family History Records Found Advance Directives Latest Code Status on File Code Status [...] Code 01/08/2018 4:36 PM 01/09/2018 12:51 PM Date Activated Date Inactivated Comments 01/08/2018 4:36 PM 01/09/2018 12:51 PM Reason for Referral Specialty Diagnoses / Procedures Referred By Idania verdin Referred To Contact Nutrition Diagnoses Indigestion Mariusz Kruger MD [address] [place] [address] [address] [place] [address] Referral ID Status Reason Start Date Expiration Date Visits Requested Visits Authorized [id number] Authorized Consultatio n-[facility] 12/05/2022 12/05/2023 3 3 Scheduling Instructions Please [...] Indigestion Procedures NM GASTRIC EMPTYING STUDY Gastroenterology [address] [place] [address] [facility] NUCLEAR MEDICINE [address] [place] [address] Referral ID Status Reason Start Date Expiration Date V isits Requested Visits Authorized [id number] Pending Review 12/05/2022 12/05/2023 1 1 Specialty Diagnoses / Procedures Referred By Contac t Referred To Contact Radiology Diagnoses Indigestion Procedures NM GASTRIC EMPTYING STUDY Mariusz Kruger MD [address] [place] [address] [place] [address] [facility] NUCLEAR MEDICINE [address] [place] [address] Referral ID Status Reason Start Date Expiration Date V isits Requested Visits Authorized [id number] Closed Transfer of Care-[facility] 12/16/2022 01/30/2023 1 1 Specialty Diagnoses / Procedures Referred By Contac t Referred To Contact Diagnoses Shira Chowdhury DO [address] [place] [address] [place] [address] Referral ID Status Reason Start Date Expiration Date Visits Re quested Visits Authorized [id number] Denied 3 3 Specialty Diagnoses / Procedures Referred By Contac t Referred To Contact Gastroenterology Diagnoses Epigastric pain Gastroesophageal reflux disease, unspecified whether esophagitis present Paulina Jones DO [address] [place] [address] [facility] GASTROENTEROLOGY [address] [place] [address] Referral ID Status Reason Start Date Expiration Date V isits Requested Visits Authorized [id number] Authorized 08/08/2023 08/08/2024 3 3 Scheduling Instructions Please call the Gastroenterology Clinic at to schedule an appointment if one was not made for you today. Question Answer Reason for Referral: Pain-Abdomen [16] Which GI clinic should the patient be scheduled in? General GI Clinic Comments Most recent visit in Gastroenterology was on 12/05/2022 with Mason Walls MD Specialty Diagnoses / Procedures Referred By Contguillermina t Referred To Contact Radiology Diagnoses Colicky RUQ abdominal pain Procedures US LIVER/GALL BLADDER/PANCREAS Leopoldo Woods, [facility] [employer] [address] [id number] ULTRASOUND [address] [place] [address] Referral ID Status Reason Start Date Expiration Date Visits Re quested Visits Authorized [id number] Closed 10/15/2023 10/14/2024 1 1 Additional Source Comments INFORMATION SOURCE (unrecogn ized section and content) DATE CREATED AUTHOR 06/28/2019 [facility] DATE CREATED AUTHOR AUTHOR'S ORGANIZ ATION 03/10/2022 [facility] DATE CREATED AUTHOR AUTHOR'S ORGANIZ ATION 02/19/2024 [facility] DATE CREATED AUTHOR AUTHOR'S ORGANIZ ATION 02/23/2024 [facility] DATE CREATED AUTHOR AUTHOR'S ORGANIZ ATION 03/01/2024 Yao Sherwin [facility] DATE CREATED AUTHOR AUTHOR'S ORGANIZ ATION 06/15/2024 [facility] DATE CREATED AUTHOR AUTHOR'S ORGANIZ ATION 06/23/2024 [facility] [employer] [facility] Reason for Visit (unrecogniz ed section and [...] Humira Specialty Diagnoses / Procedures Referred By Contac t Referred To Contact Radiology Diagnoses Indigestion Procedures NM GASTRIC EMPTYING STUDY Fass, Mariusz, MD [address] [place] [address] [facility] NUCLEAR MEDICINE [address] [place] [address] Referral ID Status Reason Start Date Expiration Date V isits Requested Visits Authorized [id number] Closed Transfer of Care-[facility] 12/16/2022 01/30/2023 1 1 Reason Onset Date [...] Specialty Diagnoses / Procedures Referred By Idania t Referred To Contact Gastroenterology Diagnoses Epigastric pain Gastroesophageal reflux disease, unspecified whether esophagitis present Paulina Jones DO [address] [place] [address] [facility] GASTROENTEROLOGY [address] [place] [address] Referral ID Status Reason Start Date Expiration Date V isits Requested Visits Authorized [id number] Authorized 08/08/2023 08/08/2024 3 3 Specialty Diagnoses / Procedures Referred By Idania t Referred To Contact Radiology Diagnoses Colicky RUQ abdominal pain Procedures US LIVER/GALL BLADDER/PANCREAS Leopoldo Woods, [facility]ID[facility] [id number] [facility] ULTRASOUND [address] [place] [address] Referral ID Status Reason Start Date Expiration Date Visits Re quested Visits Authorized [id number] Closed 10/15/2023 10/14/2024 1 1 Reason Onset Date Comments Returned call 06/20/2024 Care Teams (unrecognized sec tion and content) Force Dispatcher Relationship Specialty Start Date End Date Radha Negrete MD PCP - General Pediatrics 12/08/17 Antwan Woodruff MD [address] [place] [address] Fellow Gastroenterology 04/22/17 Don Moya MD [address] [place] [address] Physician Orthopaedic Surgery 09/04/20 Nathaniel Ovalle MD [address] [place] [address] Physician Pain Management 09/04/20 Lianne Mayo DO [address] [place] [address] [place] [address] Resident Dermatology 09/04/20 Force Dispatcher Relationship Specialty Start Date End Date Radha Negrete MD PCP - General Pediatrics 12/08/17 Antwan Woodruff MD [address] [place] [address] Fellow Gastroenterology 04/22/17 Don Moya MD [address] [place] [address] Physician Orthopaedic Surgery 09/04/20 Nathaniel Ovalle MD [address] [place] [address] Physician Pain Management 09/04/20 Lianne Mayo DO [address] [place] [address] [place] [address] Resident Dermatology 09/04/20 Karlee Sanchez MD [address] [place] [address] [place] [address] Physician Dermatology 05/31/22 Force Dispatcher Relationship Specialty Start Date End Date Radha Negrete MD PCP - General Pediatrics 12/08/17 Antwan Woodruff MD [address] [place] [address] Fellow Gastroenterology 04/22/17 Don Moya MD [address] [place] [address] 14065 Physician Orthopaedic Surgery 09/04/20 Nathaniel Ovalle MD [address] [place] [address] Physician Pain Management 09/04/20 Lianne Mayo DO [address] [place] [address] [place] [address] Resident Dermatology 09/04/20 Karlee Sanchez MD [address] [place] [address] [place] [address] Physician Dermatology 05/31/22 Force Dispatcher Relationship Specialty Start Date End Date Radha Negrete MD PCP - General Pediatrics 12/08/17 Antwan Woodruff MD [address] [place] [address] Fellow Gastroenterology 04/22/17 Don Moya MD [address] [place] [address] Physician Orthopaedic Surgery 09/04/20 Nathaniel Ovalle MD [address] [place] [address] Physician Pain Management 09/04/20 Lianne Mayo DO [address] [place] [address] [place] [address] Resident Dermatology 09/04/20 Karlee Sanchez MD [address] [place] [address] [place] [address] Physician Dermatology 05/31/22 Force Dispatcher Relationship Specialty Start Date End Date Radha Negrete MD PCP - General Pediatrics 12/08/17 Antwan Woodruff MD [address] [place] [address] Fellow Gastroenterology 04/22/17 Don Moya MD [address] [place] [address] Physician Orthopaedic Surgery 09/04/20 Nathaniel Ovalle MD [address] [place] [address] Physician Pain Management 09/04/20 Lianne Mayo DO [address] [place] [address] [place] [address] Resident Dermatology 09/04/20 Karlee Sanchez MD [address] [place] [address] [place] [address] Physician Dermatology 05/31/22 Regina Bright MD [address] [place] [address] Physician Dermatology 08/02/22 Force Dispatcher Relationship Specialty Start Date End Date Leopoldo Woods APRN-RN HOSPICE [address] [place] [address] PCP - General Family Medicine 11/12/22 Antwan Woodruff MD [address] [place] [address] 02733 Fellow Gastroenterology 04/22/17 Don Moya MD [address] [place] [address] 78581 Physician Orthopaedic Surgery 09/04/20 Nathaniel Ovalle MD [address] [place] [address] 88958 Physician Pain Management 09/04/20 Lianne Mayo DO [address] [place] [address] [place] [address] Resident Dermatology 09/04/20 Karlee Sanchez MD [address] [place] [address] [place] [address] Physician Dermatology 05/31/22 Regina Bright MD [address] [place] [address] 27806 Physician Dermatology 08/02/22 Force Dispatcher Relationship Specialty Start Date End Date Leopoldo Woods, TERRA [employer] HELPER-RN HOSPICE [facility] [place] [address] PCP - General Family Medicine 11/12/22 Antwan Woodruff MD [address] [place] [address] 80349 Fellow Gastroenterology 04/22/17 Don Moya MD [address] [place] [address] 93950 Physician Orthopaedic Surgery 09/04/20 Nathaniel Ovalle MD [address] [place] [address] 80381 Physician Pain Management 09/04/20 Lianne Mayo DO [address] [place] [address] [place] [address] Resident Dermatology 09/04/20 Karlee Sanchez MD [address] [place] [address] [place] [address] Physician Dermatology 05/31/22 Regina Bright MD [address] [place] [address] 03368 Physician Dermatology 08/02/22 Force Dispatcher Relationship Specialty Start Date End Date Leopoldo Woods APRN-RN HOSPICE [address] [place] [address] PCP - General Family Medicine 11/12/22 Antwan Woodruff MD [address] [place] [address] 35657 Fellow Gastroenterology 04/22/17 Don Moya MD [address] [place] [address] 05182 Physician Orthopaedic Surgery 09/04/20 Nathaniel Ovalle MD [address] [place] [address] 10671 Physician Pain Management 09/04/20 Lianne Mayo DO [address] [place] [address] [place] [address] Resident Dermatology 09/04/20 Karlee Sanchez MD [address] [place] [address] [place] [address] Physician Dermatology 05/31/22 Regina Bright MD [address] [place] [address] 18299 Physician Dermatology 08/02/22 Force Dispatcher Relationship Specialty Start Date End Date Leopoldo Woods APRN-RN HOSPICE [address] [place] [address] PCP - General Family Medicine 11/12/22 Antwan Woodruff MD [address] [place] [address] 12064 Fellow Gastroenterology 04/22/17 Don Moya MD [address] [place] [address] 31323 Physician Orthopaedic Surgery 09/04/20 Nathaniel Ovalle MD [address] [place] [address] 26812 Physician Pain Management 09/04/20 Lianne Mayo DO [address] [place] [address] [place] [address] Resident Dermatology 09/04/20 Karlee Sanchez MD [address] [place] [address] [place] [address] Physician Dermatology 05/31/22 Regina Bright MD [address] [place] [address] 23840 Physician Dermatology 08/02/22 Force Dispatcher Relationship Specialty Start Date End Date Leopoldo Woods, TERRA [employer] HELPER-RN HOSPICE [facility] [place] [address] PCP - General Family Medicine 11/12/22 Antwan Woodruff MD [address] [place] [address] 31572 Fellow Gastroenterology 04/22/17 Don Moya MD [address] [place] [address] 12732 Physician Orthopaedic Surgery 09/04/20 Nathaniel Ovalle MD [address] [place] [address] 00340 Physician Pain Management 09/04/20 Lianne Mayo DO [address] [place] [address] [place] [address] Resident Dermatology 09/04/20 Karlee Sanchez MD [address] [place] [address] [place] [address] Physician Dermatology 05/31/22 Regina Bright MD [address] [place] [address] 92954 Physician Dermatology 08/02/22 Force Dispatcher Relationship Specialty Start Date End Date Leopoldo Woods TERRA [employer] HELPER-RN HOSPICE [address] [place] [address] PCP - General Family Medicine 11/12/22 Antwan Woodruff MD [address] [place] [address] 30367 Fellow Gastroenterology 04/22/17 Don Moya MD [address] [place] [address] 09134 Physician Orthopaedic Surgery 09/04/20 Nathaniel Ovalle MD [address] [place] [address] 75676 Physician Pain Management 09/04/20 Lianne Mayo DO [address] [place] [address] [place] [address] Resident Dermatology 09/04/20 Karlee Sanchez MD [address] [place] [address] [place] [address] Physician Dermatology 05/31/22 Regina Bright MD [address] [place] [address] 59010 Physician Dermatology 08/02/22 Force Dispatcher Relationship Specialty Start Date End Date Leopoldo Woods TERRA [employer] HELPER-RN HOSPICE [address] [place] [address] PCP - General Family Medicine 11/12/22 Antwna Woodruff MD [address] [place] [address] 48314 Fellow Gastroenterology 04/22/17 Don Moya MD [address] [place] [address] 20205 Physician Orthopaedic Surgery 09/04/20 Nathaniel Ovalle MD [address] [place] [address] 90159 Physician Pain Management 09/04/20 Lianne Mayo DO [address] [place] [address] [place] [address] Resident Dermatology 09/04/20 Karlee Sanchez MD [address] [place] [address] [place] [address] Physician Dermatology 05/31/22 Regina Bright MD [address] [place] [address] 94130 Physician Dermatology 08/02/22 Force Dispatcher Relationship Specialty Start Date End Date Leopodlo Woods, TERRA [employer] HELPER-RN HOSPICE [address] [place] [address] PCP - General Family Medicine 11/12/22 Antwan Woodruff MD [address] [place] [address] 04554 Fellow Gastroenterology 04/22/17 Don Moya MD [address] [place] [address] 33872 Physician Orthopaedic Surgery 09/04/20 Nathaniel Ovalle MD [address] [place] [address] 06866 Physician Pain Management 09/04/20 Lianne Mayo DO [address] [place] [address] [place] [address] Resident Dermatology 09/04/20 Karlee Sanchez MD [address] [place] [address] [place] [address] Physician Dermatology 05/31/22 Regina Bright MD [address] [place] [address] 86618 Physician Dermatology 08/02/22 Force Dispatcher Relationship Specialty Start Date End Date Leopoldo Woods APRN-RN HOSPICE [address] [place] [address] PCP - General Family Medicine 11/12/22 Antwan Woodruff MD [address] [place] [address] 43999 Fellow Gastroenterology 04/22/17 Don Moya MD [address] [place] [address] 69063 Physician Orthopaedic Surgery 09/04/20 Nathaniel Ovalle MD [address] [place] [address] 21970 Physician Pain Management 09/04/20 Lianne Mayo DO [address] [place] [address] [place] [address] Resident Dermatology 09/04/20 Karlee Sanchez MD [address] [place] [address] [place] [address] Physician Dermatology 05/31/22 Regina Bright MD [address] [place] [address] 33305 Physician Dermatology 08/02/22 Force Dispatcher Relationship Specialty Start Date End Date Leopoldo Woods APRN-RN HOSPICE [address] [place] [address] PCP - General Family Medicine 11/12/22 Antwan Woodruff MD [address] [place] [address] 50184 Fellow Gastroenterology 04/22/17 Don Moya MD [address] [place] [address] 85310 Physician Orthopaedic Surgery 09/04/20 Nathaniel Ovalle MD [address] [place] [address] 26226 Physician Pain Management 09/04/20 Lianne Mayo DO [address] [place] [address] [place] [address] Resident Dermatology 09/04/20 Karlee Sanchez MD [address] [place] [address] [place] [address] Physician Dermatology 05/31/22 Regina Bright MD [address] [place] [address] 25237 Physician Dermatology 08/02/22 Force Dispatcher Relationship Specialty Start Date End Date Leopoldo Woods, TER[employer] HELPER-RN HOSPICE [address] [place] [address] PCP - General Family Medicine 11/12/22 Antwan Woodruff MD [address] [place] [address] 98834 Fellow Gastroenterology 04/22/17 Don Moya MD [address] [place] [address] 55679 Physician Orthopaedic Surgery 09/04/20 Nathaniel Ovalle MD [address] [place] [address] 64957 Physician Pain Management 09/04/20 Lianne Mayo DO [address] [place] [address] [place] [address] Resident Dermatology 09/04/20 Karlee Sanchez MD [address] [place] [address] [place] [address] Physician Dermatology 05/31/22 Regina Bright MD [address] [place] [address] 13737 Physician Dermatology 08/02/22 Force Dispatcher Relationship Specialty Start Date End Date Leopoldo Woods, TERRA [employer] HELPER-[facility] [address] [place] [address] PCP - General Family Medicine 11/12/22 Antwan Woodruff MD [address] [place] [address] 82053 Fellow Gastroenterology 04/22/17 Don Moya MD [address] [place] [address] 25669 Physician Orthopaedic Surgery 09/04/20 Nathaniel Ovalle MD [address] [place] [address] 20118 Physician Pain Management 09/04/20 Lianne Mayo DO [address] [place] [address] [place] [address] Resident Dermatology 09/04/20 Karlee Sanchez MD [address] [place] [address] [place] [address] Physician Dermatology 05/31/22 Regina Bright MD [address] [place] [address] 26313 Physician Dermatology 08/02/22 Mason Walls MD [address] [place] [address] 08421 Fellow Gastroenterology 01/03/23 Force Dispatcher Relationship Specialty Start Date End Date Leopoldo Woods, TER[employer] HELPER-RN HOSPICE [address] [place] [address] PCP - General Family Medicine 11/12/22 Antwan Woodruff MD [address] [place] [address] 43276 Fellow Gastroenterology 04/22/17 Don Moya MD [address] [place] [address] 36447 Physician Orthopaedic Surgery 09/04/20 Nathaniel Ovalle MD [address] [place] [address] 29506 Physician Pain Management 09/04/20 Lianne Mayo DO [address] [place] [address] [place] [address] Resident Dermatology 09/04/20 Karlee Sanchez MD [address] [place] [address] [place] [address] Physician Dermatology 05/31/22 Regina Bright MD [address] [place] [address] 58942 Physician Dermatology 08/02/22 Mason Walls MD [address] [place] [address] 14128 Fellow Gastroenterology 01/03/23 Force Dispatcher Relationship Specialty Start Date End Date Chuck Leopoldo, TER[employer] HELPER-RN HOSPICE [address] [place] [address] PCP - General Family Medicine 11/12/22 Antwan Woodruff MD [address] [place] [address] 29824 Fellow Gastroenterology 04/22/17 Don Moya MD [address] [place] [address] 85479 Physician Orthopaedic Surgery 09/04/20 Nathaniel Ovalle MD [address] [place] [address] 10548 Physician Pain Management 09/04/20 Lianne Mayo DO [address] [place] [address] [place] [address] Resident Dermatology 09/04/20 Karlee Sanchez MD [address] [place] [address] [place] [address] Physician Dermatology 05/31/22 Regina Bright MD [address] [place] [address] 13883 Physician Dermatology 08/02/22 Force Dispatcher Relationship Specialty Start Date End Date Leopoldo Woods, TERRA [employer] HELPER-RN HOSPICE [address] [place] [address] PCP - General Family Medicine 11/12/22 Antwan Woodruff MD [address] [place] [address] 87809 Fellow Gastroenterology 04/22/17 Don Moya MD [address] [place] [address] 76856 Physician Orthopaedic Surgery 09/04/20 Nathaniel Ovalle MD [address] [place] [address] 38894 Physician Pain Management 09/04/20 Lianne Mayo DO [address] [place] [address] [place] [address] Resident Dermatology 09/04/20 Karlee Sanchez MD [address] [place] [address] [place] [address] Physician Dermatology 05/31/22 Regina Bright MD [address] [place] [address] 80678 Physician Dermatology 08/02/22 Mason Walls MD [address] [place] [address] 87721 Fellow Gastroenterology 01/03/23 Force Dispatcher Relationship Specialty Start Date End Date Chuck Leopoldo, TER[employer] HELPER-[place] [address] [place] [address] PCP - General Family Medicine 11/12/22 Antwan Woodruff MD [address] [place] [address] 27926 Fellow Gastroenterology 04/22/17 Don Moya MD [address] [place] [address] 47772 Physician Orthopaedic Surgery 09/04/20 Nathaniel Ovalle MD [address] [place] [address] 05973 Physician Pain Management 09/04/20 Lianne Mayo DO [address] [place] [address] [place] [address] Resident Dermatology 09/04/20 Karlee Sanchez MD [address] [place] [address] [place] [address] Physician Dermatology 05/31/22 Regina Bright MD [address] [place] [address] 11317 Physician Dermatology 08/02/22 Mason Walls MD [address] [place] [address] 68448 Fellow Gastroenterology 01/03/23 Force Dispatcher Relationship Specialty Start Date End Date Leopoldo Woods APRN-RN HOSPICE [address] [place] [address] PCP - General Family Medicine 11/12/22 Antwan Woodruff MD [address] [place] [address] 81037 Fellow Gastroenterology 04/22/17 Don Moya MD [address] [place] [address] 70301 Physician Orthopaedic Surgery 09/04/20 Nathaniel Ovalle MD [address] [place] [address] 22000 Physician Pain Management 09/04/20 Lianne Mayo DO [address] [place] [address] [place] [address] Resident Dermatology 09/04/20 Karlee Sanchez MD [address] [place] [address] [place] [address] Physician Dermatology 05/31/22 Regina Bright MD [address] [place] [address] 67690 Physician Dermatology 08/02/22 Mason Walls MD [address] [place] [address] 91129 Fellow Gastroenterology 01/03/23 Force Dispatcher Relationship Specialty Start Date End Date Leopoldo Woods APRN-RN HOSPICE [address] [place] [address] PCP - General Family Medicine 11/12/22 Antwan Woodruff MD [address] [place] [address] 34198 Fellow Gastroenterology 04/22/17 Don Moya MD [address] [place] [address] 24567 Physician Orthopaedic Surgery 09/04/20 Nathaniel Ovalle MD [address] [place] [address] 50713 Physician Pain Management 09/04/20 Lianne Mayo DO [address] [place] [address] [place] [address] Resident Dermatology 09/04/20 Karlee Sanchez MD [address] [place] [address] [place] [address] Physician Dermatology 05/31/22 Regina Bright MD [address] [place] [address] 35197 Physician Dermatology 08/02/22 Mason Walls MD [address] [place] [address] 26086 Fellow Gastroenterology 01/03/23 Joseph Alfredo RPh [address] [place] [address] 53779 Pharmacist 03/06/23 Ronit Zapata CPhT Tech Pharmacology and Toxicology 03/06/23 Maya Andrews CPhT [address] [place] [address] [place] [address] Medication Cmo & President Pharmacology and Toxicology 03/06/23 Force Dispatcher Relationship Specialty Start Date End Date Leopoldo Woods APRN-RN HOSPICE [address] [place] [address] 47198 PCP - General Family Medicine 11/12/22 Antwan Woodruff MD [address] [place] [address] 26184 Fellow Gastroenterology 04/22/17 Don Moya MD [address] [place], [place] [phone] Physician Orthopaedic Surgery 09/04/20 Nathaniel Ovalle MD [address] [place], [place] [phone] Physician Pain Management 09/04/20 Lianne Mayo DO [address] [place] [address] [address] [place] 6942009 Resident Dermatology 09/04/20 Karlee Sanchez MD [address] [place] [address] [address] [place] 6942009 Physician Dermatology 05/31/22 Regina Bright MD [address] [place], [place] [phone] Physician Dermatology 08/02/22 Mason Walls MD [address] [place], [place] [phone] Fellow Gastroenterology 01/03/23 Joseph Alfredo, [address] [address] Pharmacist 03/06/23 05/12/23 Ronit Zapata CPhT Tech Pharmacology and Toxicology 03/06/23 05/12/23 Maya Andrews CPhT [address] [place] [address] [place] [address] Medication Cmo & President Pharmacology and Toxicology 03/06/23 05/12/23 Force Dispatcher Relationship Specialty Start Date End Date Leopoldo Woods APRN-RN HOSPICE [address] [place] [address] PCP - General Family Medicine 11/12/22 Antwan Woodruff MD [address] [place] [address] 82233 Fellow Gastroenterology 04/22/17 Don Moya MD [address] [place] [address] 47059 Physician Orthopaedic Surgery 09/04/20 Nathaniel Ovalle MD [address] [place] [address] 05481 Physician Pain Management 09/04/20 Lianne Mayo DO [address] [place] [address] [place] [address] Resident Dermatology 09/04/20 Karlee Sanchez MD [address] [place] [address] [place] [phone] Physician Dermatology 05/31/22 Regina Bright MD [address] [place] [address] 41313 Physician Dermatology 08/02/22 Mason Walls MD [address] [place] [address] 21819 Fellow Gastroenterology 01/03/23 Joseph Alfredo, [address] [address] Pharmacist 03/06/23 05/12/23 Ronit Zapata CPhT Tech Pharmacology and Toxicology 03/06/23 05/12/23 Maya Andrews CPhT [address] [place] [address] [place] [address] Medication Cmo & President Pharmacology and Toxicology 03/06/23 05/12/23 Force Dispatcher Relationship Specialty Start Date End Date Leopoldo Woods APRN-RN HOSPICE [address] [place] [address] 69542 PCP - General Family Medicine 11/12/22 Antwan Woodruff MD [address] [place] [address] 60868 Fellow Gastroenterology 04/22/17 Don Moya MD [address] [place] [address] 77247 Physician Orthopaedic Surgery 09/04/20 Nathaniel Ovalle MD [address] [place] [address] 29087 Physician Pain Management 09/04/20 Lianne Mayo DO [address] [place] [address] [place] [address] Resident Dermatology 09/04/20 Karlee Sanchez MD [address] [place] [address] [place] [address] Physician Dermatology 05/31/22 Regina Bright MD [address] [place] [address] 97675 Physician Dermatology 08/02/22 Mason Walls MD [address] [place] [address] 65527 Fellow Gastroenterology 01/03/23 Force Dispatcher Relationship Specialty Start Date End Date Leopoldo Woods APRN-RN HOSPICE [address] [place] [address] PCP - General Family Medicine 11/12/22 Antwan Woodruff MD [address] [place] [address] 18902 Fellow Gastroenterology 04/22/17 Don Moya MD [address] [place] [address] 94513 Physician Orthopaedic Surgery 09/04/20 Nathaniel Ovalle MD [address] [place] [address] 72747 Physician Pain Management 09/04/20 Lianne Mayo DO [address] [place] [address] [place] [address] Resident Dermatology 09/04/20 Karlee Sanchez MD [address] [place] [address] [place] [address] Physician Dermatology 05/31/22 Regina Bright MD [address] [place] [address] Physician Dermatology 08/02/22 Mason Walls MD [address] [place], [place] [phone] Fellow Gastroenterology 01/03/23 Joseph Alfredo [address] [address] Pharmacist 07/22/23 Ronit Zapata [facility] Tech Pharmacology and Toxicology 07/22/23 Maya Andrews CPhT [address] [place] [address] [place] [address] Medication Cmo & President Pharmacology and Toxicology 07/22/23 Force Dispatcher Relationship Specialty Start Date End Date Leopoldo Woods APRN-RN HOSPICE [address] [place] [address] 15375 PCP - General Family Medicine 11/12/22 Antwan Woodruff MD [address] [place] [address] 66516 Fellow Gastroenterology 04/22/17 Don Moya MD [address] [place] [address] 87777 Physician Orthopaedic Surgery 09/04/20 Nathaniel Ovalle MD [address] [place] [address] 18431 Physician Pain Management 09/04/20 Lianne Mayo DO [address] [place] [address] [place] [address] Resident Dermatology 09/04/20 Karlee Sanchez MD [address] [place] [address] [place] [address] Physician Dermatology 05/31/22 Regina Bright MD [address] [place] [address] Physician Dermatology 08/02/22 Mason Walls MD [address] [place], [place] [phone] Fellow Gastroenterology 01/03/23 Joseph Alfredo [address] [address] Pharmacist 07/22/23 Ronit Zapata [facility] Tech Pharmacology and Toxicology 07/22/23 Maya Andrews CPhT [address] [place] [address] [place] [address] Medication Cmo & President Pharmacology and Toxicology 07/22/23 Force Dispatcher Relationship Specialty Start Date End Date Leopoldo Woods APRN-RN HOSPICE [address] [place] [address] 58669 PCP - General Family Medicine 11/12/22 Antwan Woodruff MD [address] [place] [address] 37296 Fellow Gastroenterology 04/22/17 Don Moya MD [address] [place] [address] 51878 Physician Orthopaedic Surgery 09/04/20 Nathaniel Ovalle MD [address] [place] [address] 72115 Physician Pain Management 09/04/20 Lianne Mayo DO [address] [place] [address] [place] [address] Resident Dermatology 09/04/20 Karlee Sanchez MD [address] [place] [address] [place] [address] Physician Dermatology 05/31/22 Regina Bright MD [address] [place] [address] Physician Dermatology 08/02/22 Mason Walls MD [address] [place], [place] [phone] Fellow Gastroenterology 01/03/23 Joseph Alfredo [address] [address] Pharmacist 07/22/23 Ronit Zapata [facility] Tech Pharmacology and Toxicology 07/22/23 Maya Andrews CPhT [address] [place] [address] [place] [address] Medication Cmo & President Pharmacology and Toxicology 07/22/23 Force Dispatcher Relationship Specialty Start Date End Date Leopoldo Woods APRN-RN HOSPICE [address] [place] [address] 95345 PCP - General Family Medicine 11/12/22 Antwan Woodruff MD [address] [place] [address] 10093 Fellow Gastroenterology 04/22/17 Don Moya MD [address] [place] [address] 91173 Physician Orthopaedic Surgery 09/04/20 Nathaniel Ovalle MD [address] [place] [address] 38214 Physician Pain Management 09/04/20 Lianne Mayo DO [address] [place] [address] [place] [address] Resident Dermatology 09/04/20 Karlee Sanchez MD [address] [place] [address] [place] [address] Physician Dermatology 05/31/22 Regina Bright MD [address] [place] [address] 32631 Physician Dermatology 08/02/22 Mason Walls MD [address] [place] [address] 53490 Fellow Gastroenterology 01/03/23 Force Dispatcher Relationship Specialty Start Date End Date Leopoldo Woods, DAVID-RN HOSPICE [address] [place] [address] 77217 PCP - General Family Medicine 11/12/22 Antwan Woodruff MD [address] [place] [address] 96653 Fellow Gastroenterology 04/22/17 Don Moya MD [address] [place] [address] 26514 Physician Orthopaedic Surgery 09/04/20 Nathaniel Ovalle MD [address] [place] [address] Physician Pain Management 09/04/20 Lianne Mayo DO [address] [place] [address] [address] [place] [phone] Resident Dermatology 09/04/20 Karlee Sanchez MD [address] [place] [address] [place] [address] Physician Dermatology 05/31/22 Regina Bright MD [address] [place] [address] Physician Dermatology 08/02/22 Mason Walls MD [address] [place] [address] Fellow Gastroenterology 01/03/23 Joseph Alfredo, [place] [phone] Pharmacist 07/22/23 Ronit Zapata [facility] Tech Pharmacology and Toxicology 07/22/23 Maya Andrews CPhT [address] [place] [address] [place] [address] Medication Cmo & President Pharmacology and Toxicology 07/22/23 Shira Grady DO [address] [place] [address] [place] [address] Physician Dermatology 08/01/23 Force Dispatcher Relationship Specialty Start Date End Date Leopoldo Woods APRN-RN HOSPICE [address] [place], [place] [address]702 PCP - General Family Medicine 11/12/22 Antwan Woodruff MD [address] [place] [address] 83480 Fellow Gastroenterology 04/22/17 Don Moya MD [address] [place] [address] Physician Orthopaedic Surgery 09/04/20 Nathaniel Ovalle MD [address] [place] [address] Physician Pain Management 09/04/20 Lianne Mayo DO [address] [place] [address] [address] [place] [phone] Resident Dermatology 09/04/20 Karlee Sanchez MD [address] [place] [address] [address] [place] [phone] Physician Dermatology 05/31/22 Regina Bright MD [address] [place] [address] Physician Dermatology 08/02/22 Mason Walls MD [address] [place] [address] 58612 Fellow Gastroenterology 01/03/23 Joseph Alfredo [address] [address] Pharmacist 07/22/23 Ronit Zapata [facility] Tech Pharmacology and Toxicology 07/22/23 Maya Andrews CPhT [address] [place] [address] [address] [place] [phone] Medication Cmo & President Pharmacology and Toxicology 07/22/23 Shira Grady DO [address] [place] [address] [place] [id number] Physician Dermatology 08/01/23 Force Dispatcher Relationship Specialty Start Date End Date Leopoldo Woods APRN-RN HOSPICE [address] [place] [address] [id number] PCP - General Family Medicine 11/12/22 Antwan Woodruff MD [address] [place] [address] 28004 Fellow Gastroenterology 04/22/17 Don Moya MD [address] [place] [address] 86149 Physician Orthopaedic Surgery 09/04/20 Nathaniel Ovalle MD [address] [place] [address] 36083 Physician Pain Management 09/04/20 Lianne Mayo DO [address] [place] [address] [place] [address] Resident Dermatology 09/04/20 Karlee Sanchez MD [address] [place] [address] DR [place] [id number] Physician Dermatology 05/31/22 Regina Bright MD [address] [place], [place] [id number] Physician Dermatology 08/02/22 Mason Walls MD [address] [place] [address] 08379 Fellow Gastroenterology 01/03/23 Joseph Alfredo, [address] [address] Pharmacist 07/22/23 Ronit Zapata CPhT Tech Pharmacology and Toxicology 07/22/23 Maya Andrews CPhT [address] [place] [address] [place] [address] Medication Cmo & President Pharmacology and Toxicology 07/22/23 Shira Grady DO [address] [place] [address] [place] [address] Physician Dermatology 08/01/23 Force Dispatcher Relationship Specialty Start Date End Date Leopoldo Woods APRN-RN HOSPICE [address] [place], [place] [id number] PCP - General Family Medicine 11/12/22 Antwan Woodruff MD [address] [place] [address] 62159 Fellow Gastroenterology 04/22/17 Don Moya MD [address] [place], [place] [id number] Physician Orthopaedic Surgery 09/04/20 Nathaniel Ovalle MD [address] [place], [place] [phone] Physician Pain Management 09/04/20 Lianne Mayo DO [address] [place] [address] [address] [place] [id number] Resident Dermatology 09/04/20 Karlee Sanchez MD [address] [place] [address] [address] [place] [id number] Physician Dermatology 05/31/22 Regina Bright MD [address] [place] [address] Physician Dermatology 08/02/22 Mason Walls MD [address] [place] [address] 36952 Fellow Gastroenterology 01/03/23 Joseph Alfredo, [address] [address] Pharmacist 07/22/23 Rnoit Zapata, [facility] Tech Pharmacology and Toxicology 07/22/23 Maya Andrews CPhT [address] [place] [address] [place] [address] Medication Cmo & President Pharmacology and Toxicology 07/22/23 Shira Grady DO [address] [place] [address] [place] [address] Physician Dermatology 08/01/23 Force Dispatcher Relationship Specialty Start Date End Date ChuckLeopoldo loredoDAVID-RN HOSPICE [address] [place] [id number] PCP - General Family Medicine 11/12/22 Antwan Woodruff MD [address] [place] [id number] Fellow Gastroenterology 04/22/17 Don Moya MD [address] [place] [address] 01927 Physician Orthopaedic Surgery 09/04/20 Nathaniel Ovalle MD [address] [place] [address] 04221 Physician Pain Management 09/04/20 Lianne Mayo DO [address] [place] [address] [place] [address] Resident Dermatology 09/04/20 Karlee Sanchez MD [address] [place] [address] [place] [address] Physician Dermatology 05/31/22 Regina Bright MD [address] [place] [address]29 Physician Dermatology 08/02/22 Mason Walls MD [address] [place] [address] 59664 Fellow Gastroenterology 01/03/23 Joseph Alfredo [address] [address] Pharmacist 07/22/23 Ronit Zapata grocery clerk checking Tech Pharmacology and Toxicology 07/22/23 Maya Andrews CPhT [address] [place] [address] [place] [address] Medication Cmo & President Pharmacology and Toxicology 07/22/23 Shira Grady DO [address] [place] [address] [place] [address] Physician Dermatology 08/01/23 Force Dispatcher Relationship Specialty Start Date End Date Chuck Leopoldo, [employer]-RN HOSPICE [address] [place] [phone] PCP - General Family Medicine 11/12/22 Antwan Woodruff MD [address] [place] [address] 38304 Fellow Gastroenterology 04/22/17 Don Moya MD [address] [place], [place] [phone] Physician Orthopaedic Surgery 09/04/20 Nathaniel Ovalle MD [address] [place], [place] [phone] Physician Pain Management 09/04/20 Lianne Mayo DO [address] [place] [address] [place] [address] Resident Dermatology 09/04/20 Karlee Sanchez MD [address] [place] [address] [place] [address] Physician Dermatology 05/31/22 Regina Bright MD [address] [place] [address] Physician Dermatology 08/02/22 Mason Walls MD [address] [place] [address] 74199 Fellow Gastroenterology 01/03/23 Joseph Alfredo, [address] [address] Pharmacist 07/22/23 08/28/23 Ronit Zapata, [facility] Tech Pharmacology and Toxicology 07/22/23 08/28/23 Maya Andrews, [address] [place] [address] Medication Cmo & President Pharmacology and Toxicology 07/22/23 08/28/23 Shira Grady DO [address] [place] [address] [address] [place] [phone] Physician Dermatology 08/01/23 Force Dispatcher Relationship Specialty Start Date End Date Leopoldo Woods APRN-RN HOSPICE [address] [place], [place] [id number] PCP - General Family Medicine 11/12/22 Antwan Woodruff MD [address] [place] [address] Fellow Gastroenterology 04/22/17 Don Moya MD [address] [place], [place] [phone] Physician Orthopaedic Surgery 09/04/20 Nathaniel Ovalle MD [address] [place] [address] Physician Pain Management 09/04/20 Lianne Mayo DO [address] [place] [address] [place] [address] Resident Dermatology 09/04/20 Karlee Sanchez MD [address] [place] [address] [place] [address] Physician Dermatology 05/31/22 Regina Bright MD [address] [place] [address] 04242 Physician Dermatology 08/02/22 Mason Walls MD [address] [place] [address] 19238 Fellow Gastroenterology 01/03/23 Shira Grady DO [address] [place] [address] [place] [address] Physician Dermatology 08/01/23 Mack Vega MD [address] [place] [address] 70[address] Fellow Gastroenterology 09/05/23 Force Dispatcher Relationship Specialty Start Date End Date Leopoldo Woods, [employer]-RN HOSPICE [address] [place] [address] PCP - General Family Medicine 11/12/22 Antwan Woodruff MD [address] [place] [address] 11934 Fellow Gastroenterology 04/22/17 Don Moya MD [address] [place] [address] 45759 Physician Orthopaedic Surgery 09/04/20 Nathaniel Ovalle MD [address] [place] [address] 97725 Physician Pain Management 09/04/20 Lianne Mayo DO [address] [place] [address] [place] [address] Resident Dermatology 09/04/20 Karlee Sanchez MD [address] [place] [address] [place] [address] Physician Dermatology 05/31/22 Regina Bright MD [address] [place] [address]756 Physician Dermatology 08/02/22 Mason Walls MD [address] [place] [address] 04847 Fellow Gastroenterology 01/03/23 Shira Grady DO [address] [place] [address] [place] [address] Physician Dermatology 08/01/23 Mack Vega MD [address] [place] [address] 45379 Fellow Gastroenterology 09/05/23 Force Dispatcher Relationship Specialty Start Date End Date Leopoldo Woods, [employer]-RN HOSPICE [address] [place] [phone] PCP - General Family Medicine 11/12/22 Antwan Woodruff MD [address] [place] [address] 87015 Fellow Gastroenterology 04/22/17 Don Moya MD [address] [place] [address] 54906 Physician Orthopaedic Surgery 09/04/20 Nathaniel Ovalle MD [address] [place] [address] 49228 Physician Pain Management 09/04/20 Lianne Mayo DO [address] [place] [address] [place] [address] Resident Dermatology 09/04/20 Karlee Sanchez MD [address] [place] [address] [address] [place] [id number] Physician Dermatology 05/31/22 Regina Bright MD [address] [place] [address] Physician Dermatology 08/02/22 Mason Walls MD [address] [place] [address] Fellow Gastroenterology 01/03/23 Shira Grady DO [address] [place] [address] [address] [place] [phone] Physician Dermatology 08/01/23 Mack Vega MD [address] [place] [address] Fellow Gastroenterology 09/05/23 Force Dispatcher Relationship Specialty Start Date End Date Leopoldo Woods APRN-RN HOSPICE [address] [place] [id number] PCP - General Family Medicine 11/12/22 Antwan Woodruff MD [address] [place] [address] 97922 Fellow Gastroenterology 04/22/17 Don Moya MD [address] [place] [address]90 Physician Orthopaedic Surgery 09/04/20 Nathaniel Ovalle MD [address] [place] [address] 69724 Physician Pain Management 09/04/20 Lianne Mayo DO [address] [place] [address] [place] [address] Resident Dermatology 09/04/20 Karlee Sanchez MD [address] [place] [address] [place] [address] Physician Dermatology 05/31/22 Regina Bright MD [address] [place], [place] [phone] Physician Dermatology 08/02/22 Mason Walls MD [address] [place], [place] [phone] Fellow Gastroenterology 01/03/23 Shira Grady DO [address] [place] [address] [address] [place] [id number] Physician Dermatology 08/01/23 Mack Vega MD [address] [place], [place] [phone] Fellow Gastroenterology 09/05/23 Scheduled Active and Recently [...] BE BASED ON THE PRIMARY CLINICAL RECORDS. [employer] provides no warranty or guarantee of the accuracy or completeness of information in this document.
== END 2024-07-01 10:36 | disposition home or self-care (01) ==
LOC: EC 10:35
PROVIDERS: Visit Provider Orthopaedic Surgery Orthopaedic Surgery of the Spine
DX: M54.50 Low back pain, unspecified (principal)
CPT/HCPCS: 72100

== ENCOUNTER 2024-07-25 13:32 | Outpatient (OUT) | payer MEDICARE, SELFPAY ==
--- NOTE | 2024-07-25 14:36 | P.CN_ITS ---
Consult Note: HPI Data of Consult Patient: new to practice Consult date: 07/25/24 Requesting Physician: Kishan Child MD Primary Care Provider: Non-Staff Physician, Consult Narrative Reason for consult: low back pain Narrative: 49yof who presents for evaluation. increasing low back and buttock pain. recent ly evaluated by spine surgeon, who recommended sij injection. 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 has engaged in >6 weeks of provider directed home exercises, without lasting relief. uses medical marijuana. denies adverse med side effects. cc:: CC: Kishan Child MD Review of Systems ROS Status of ROS 10 or more systems reviewed and unremark able except as noted in history and below Meds Home Medications and Allergies Home Medications ?Medication ?Instructions ?Recorded ?Confirmed ?Type albuterol sulfate 90 mcg/actuation 2 puff inhalation Q4H PRN 07/29/23 04/04/24 History aerosol inhaler shortness of breath or wheezing atorvastatin 20 mg tablet 20 mg PO DAILY 07/29/23 04/04/24 History duloxetine 30 mg capsule,delayed 30 mg PO DAILY 07/29/23 04/04/24 History release methocarbamol 750 mg tablet 750 mg PO TID PRN pain #20 tabs 07/29/23 04/04/24 Rx cyclobenzaprine 10 mg tablet 10 mg PO Q8H 04/04/24 04/04/24 History omeprazole 40 mg capsule,delayed 40 mg PO BID 04/04/24 04/04/24 History release Allergies Allergy/AdvReac Type Severity Reaction Status Date / Time amoxicillin Allergy Severe Verified 07/29/23 13:44 morphine Allergy Severe Verified 07/29/23 13:44 naproxen Allergy Severe Nausea Verified 04/04/24 17:33 Penicillins Allergy Severe Verified 07/29/23 13:44 Exam Narrative Exam Narrative: Psych-alert and oriented x 3. Attentive and appropriate, constitutionally normal, displays normal mood and affect per situation.? There are no obvious deficits in memory, reasoning, or intellect.? Skin-no obvious rashes, bruising, erythema noted to the patient's area of pain. Extremities- extremities are warm with minimal edema and palpable pulses. Lumbar-no significant tenderness to palpation noted in the lumbar spine and pa raspinal musculature.? Pain is elicited with extension, and lateral rotation of the lumbar spine. Range of motion is slightly diminished with these motions due to pain. Facet loading maneuvers are positive bilaterally and do appear to be concordant with the patient's normal complaints of pain.? Sacroiliac - tender to palpation in bilateral PSIS. Positive Donald's bilaterally. Positive thigh thrust bilaterally. Coordination remains intact.? Gait remains non-antalgic. Assessment and Plan Assessment and Plan (1) Sacroiliac joint dysfunction of both sides: Plan 49yof who presents for evaluation. failed conservative measures, as noted. imaging reviewed, as noted. given symptoms and imaging, will proceed with bilateral sij injection, as requested by spine surgeon. she is in agreement. meds reviewed, no changes. follow up after procedure.
== END 2024-07-25 13:33 | disposition home or self-care (01) ==
LOC: PM 13:33
PROVIDERS: Visit Provider Anesthesiology
DX: M53.3 Sacrococcygeal disorders, not elsewhere classified (principal)
CPT/HCPCS: G0463

== ENCOUNTER 2024-08-15 10:43 | Day surgery (SDC) | payer MEDICARE, MEDICAID, SELFPAY ==
[2024-08-15 10:59] VITALS: BP 145/99; PULSE 98; TEMP 37; O2SAT 96
[2024-08-15 11:43] VITALS: BP 185/121; PULSE 102; O2SAT 98
[2024-08-15 11:44] VITALS: BP 182/106; PULSE 111; O2SAT 98
--- NOTE | 2024-08-15 11:47 | W.PM.PROCNOT ---
Date of procedure: 08/15/24 Pre-op diagnosis: Pain due to bilateral sacroiliitis Post-op diagnosis: same as pre-op Procedure: Procedure: Bilateral sacroiliac joint injection Medications: Bupivacaine 0.25% 3cc, kenalog 40mg x2 After informed consent was obtained, the patient was brought to the medical procedure unit and placed in the prone position, when a timeout was completed verifying correct patient, procedure, site, positioning, implant, and/or special equipment.? The skin overlying the area was prepped and draped in standard sterile fashion using alcohol.? A 25-gauge needle was inserted towards the left sacroiliac joint under direct fluoroscopic imaging.? Needle tip was advanced until the joint was encountered.? We instilled a total of 2 mL of solution.? The same procedure was then completed on the right side.? Postoperatively needles were removed.? The patient tolerated the procedure well without complication.? The patient reported reduction in pain symptoms postoperatively. Anesthesia: Local Surgeon: Kishan Child Pathology: none sent Condition: stable Disposition: no change
[2024-08-15] MEDS: BUPIVACAINE HCL 0.25% PF 25 MG/10 ML VIAL 4 ML INJ (11:48)
[2024-08-15] MEDS: LIDOCAINE HCL 2% 400 MG/20 ML MDV INJ (11:49)
[2024-08-15] MEDS: IOHEXOL 240 MG/ML - 10 ML VIAL 12 MG INJ (11:49)
[2024-08-15] MEDS: TRIAMCINOLONE ACETONIDE 40 MG/ML VIAL 80 MG INJ (11:49)
== END 2024-08-15 11:53 | disposition home or self-care (01) ==
LOC: SURGOUT 10:45
PROVIDERS: Visit Provider Anesthesiology
DX: M46.1 Sacroiliitis, not elsewhere classified (principal)
CPT/HCPCS: 27096; J0665; J3301; Q9966

== ENCOUNTER 2024-08-31 12:36 | Outpatient (OUT) | payer MEDICARE, MEDICAID, SELFPAY ==
--- OUTSIDE RECORDS SUMMARY | 2024-08-31 12:57 | XMS_ITS | CCD ---
Author Organization [facility] Inform ion Partnership [facility] Care Team Providers Care Biology Department Chair Name Role Phone AIDE LOMELI Primary Care Unavailable CINDY COON Admitting Unavailable CINDY COON Attending Unavailable Antwan Woodruff MD Unavailable Radha Negrete MD Primary Care Provider Don Moya MD Unavailable Nathaniel Ovalle MD Unavailable [phone] KuLianne gutierrez DO Unavailable Karlee Sanchez MD Unavailable Antwan Woodruff MD Unavailable Radha Negrete MD Primary Care Provider Don Moya MD Unavailable Nathaniel Ovalle MD Unavailable KuLianne gutierrez DO Unavailable Karlee Sanchez MD Unavailable Regina Bright MD Unavailable Leopoldo Douglas Primary Care Provider Antwan Woodruff MD Unavailable Don Moya MD Unavailable Nathaniel Ovalle MD Unavailable KuLianne gutierrez DO Unavailable Karlee Sanchez MD Unavailable Regina Bright MD Unavailable [place] CHARTERED WEALTH MANAGER-ENGINEER BOOSTER AND EXHAUSTER, Leopoldo Primary Care Provider Mason Walls MD Unavailable Stalcup RPh, Joseph Unavailable Unavailable Zapata director clinical information services, Ronit Unavailable Unavailable Darryl director clinical information services, Maya Unavailable Unavailable Chuck CHARTERED WEALTH MANAGER-ENGINEER BOOSTER AND EXHAUSTER, Leopoldo Primary Care Provider Stalcup RPh, Joseph Unavailable Unavailable Zapata director clinical information services, Ronit Unavailable Unavailable Darryl director clinical information services, Maya Unavailable Unavailable Mason Walls MD Unavailable Stalcup RPh, Joseph Unavailable Unavailable Zapata director clinical information services, Ronit Unavailable Unavailable Darryl director clinical information services, Maya Unavailable Unavailable Demidova DO, Shira Unavailable Stalcup RPh, Joseph Unavailable Unavailable Zapata director clinical information services, Ronit Unavailable Unavailable Darryl director clinical information services, Maya Unavailable Unavailable Mack Vega MD Unavailable CHUCK ENGINEER BOOSTER AND EXHAUSTER, LEOPOLDO L Primary Care Physician Richard Coon Attending Unavailable Richard Coon Admitting Unavailable Chuck, Leopoldo L Primary Care Unavailable Windnagel, Azul Referring Unavailable Windnagel, Azul Attending Unavailable Windnagel, Azul Admitting Unavailable CHUCK, LEOPOLDO Primary Care Unavailable DEULEY, SUSAN Admitting Unavailable DEULEToya, SUSAN Attending Unavailable ELVA, SUSAN Consulting Unavailable Griffin CAVANAUGH, Don Marquez Unavailable [phone] Nathaniel Ovalle MD Unavailable [phone] Mason Walls MD Unavailable [phone] PAULINA JONES Attending Unavailable CHUCK, LEOPOLDO Primary [...] LEOPOLDO Referring Unavailable PROVIDER, UNKNOWN Attending Unavailable Mateusz CAVANAUGH, Kishan Thomas Attending Unavailable GiKishan ortiz MD Attending Unavailable Allergies Allergy Classification Reported Allergen(s) Allergy Type Date of Onset Reaction(s) Facility (3 sources) Morphine; Translations: [morphine] Drug Allergy 4 [facility] Repository (3 sources) Penicillins; Translations: [PENICILLINS] Drug allergy (disorder) 3 Rash [facility] Repository (2 sources) Ketorolac; Translations: [...] sources) Penicillin; Translations: [penicillin] Drug Allergy rash [facility] (2 sources) Ketorolac Drug Allergy 4 [facility] Repository (2 sources) Morphine Drug Allergy 4 [facility] Repository (2 sources) Penicillins Drug allergy (disorder) 4 [facility] Repository (2 sources) traMADol Drug Allergy 4 [facility] Repository (1 source) Naproxen; Translations: [Naprosyn] Drug Allergy [facility] Repository Medications Current Medications Medication Drug Class(es) [...] 2 05/26/2022 08/13/2022 Discontinued (Duplicate (*won't e-cancel)) [id number] 200 actuat albuterol 0.09 mg/actuat metered dose inhaler (20 sources) beta2-Adrenergic Agonist Start: 08-18-2016 albuterol (PROVENTIL HFA) inhaler 90 mcg/inh Inhale 2 Puffs. 08/18/2016 Active atorvastatin 20 mg oral tablet (20 sources) HMG-CoA Reductase Inhibitor take 1 tablet by mouth once daily atorvastatin (LIPITOR) 20 MG tablet Take 20 mg by mouth daily. Active calcipotriene 0.41718 mg/mg topical ointment (20 sources) Vitamin D [...] sources) Taking high risk medication; Translations: [Other custodial (current) drug therapy] Episodic Other congenital anomalies [...] 06-29-2018 Episodic Other aftercare (1 source) Other terminal system operator (current) drug therapy; Translations: [Other terminal system operator (current) drug therapy] Onset: 08-22-2023 Episodic Other disorders of stomach and duodenum [...] Interpretation Reference Range Facility Telephone Encounteron 2023 Sales Systems Engineer Authentication Interface Message Text Pt called in. She wanted to let the office know that her insurance is messed up and she will not be scheduling a rheum appt until this is all taken care of. The patient will call back once the insurance is fixed. Pt stated thanks for calling. Normal [facility] Telephone Encounteron 2023 Sales Systems Engineer Authentication Interface Message Text Please contact pt and schedule with the order in the Active Requests tab. Normal [facility] Consent for Treatmenton 01-29 Consent for Treatment [id number]#[address] [facility] MRI Brain w/ + w/o Contrasto n [...] Vueway Contrast amount in ml's: 7.[address] [facility] Physician Orderon 02-17-2024 Physician Order [id number]#1 [address]00[address] [facility] RAD - MRI Screening Formon 0 02-17-2024 RAD - MRI Screening Form [id number]# 1.00TIFF Normal [facility] CT head/brain wo conon 02-07 CT head/brain wo con [facility] [address] CT Scan Report Signed Patient: Heather Johns MR#: [id number] : 1975 Acct:[id number] Age/Sex: 48 / F ADM Date: 02/08/24 Loc: ER Room: Type: [facility] ER Attending Dr: Copies to: Richard Coon [...] Cindy Hernandez M.D.02/08/2024 2:00 PM Dictation Location: [place] [address] Transcribed By: [facility] 02/08/24 1400 Dictated By: Cindy Hernandez II, MD 02/08/24 1352 Signed By: 02/08/24 [address] [facility] [address] head/brain wo con [facility] [place] [id number] CT Scan Report Signed Patient: Heather Johns MR#: [id number] 701 : 1975 Acct:[id number] Age/Sex: 48 / F ADM Date: 02/08/24 Loc: ER Room: Type: [facility] ER Attending Dr: Copies to: Richard Coon MD Ordering Provider: Richard Coon MD Date of Service: 02/08/24 CT/CT head/brain wo con: [facility] CT head/brain wo con 02/08/2024 12:11 PM [...] Cindy Hernandez M.D.02/08/2024 2:00 PM Dictation Location: [place] [address] Transcribed By: [facility] 02/08/24 1400 Dictated By: Cindy Hernandez II, MD 02/08/24 1352 Signed By: 02/08/[address] [facility] [address] soft tissue neck w conon 02-08-2024 CT soft tissue neck w [facility] Main [address] [address] [address] Scan Report Signed Patient: Heather Johns MR#: [id number] : 1975 Acct:[id number] Age/Sex: 48 / F ADM Date: 02/08/24 Loc: ER Room: Type: [facility] ER Attending Dr: Copies to: Richard Coon [...] Cindy Hernandez M.D.02/08/2024 2:13 PM Dictation Location: [place] [address] Transcribed By: ROWAN 02/08/24 1413 Dictated By: Cindy Hernandez II, MD 02/08/24 1400 Signed By: 02/08/24 1413 Normal [facility] CT soft tissue neck w con [facility] [address] CT Scan Report Signed Patient: Heather Johns MR#: [id number] 701 : 1975 Acct:[id number] Age/Sex: 48 / F ADM Date: 02/08/24 Loc: ER Room: Type: [facility] ER Attending Dr: Copies to: [...] Cindy Hernandez M.D.02/08/2024 2:13 PM Dictation Location: [place] [address] Transcribed By: [facility] 02/08/24 1413 Dictated By: Cindy Hernandez II, MD 02/08/24 1400 Signed By: 02/08/24 1413 Normal [facility] Complete Blood Count Auto Di ffon 02-08-2024 Basophils (Bld) [#/Vol] 0.2 10*3/uL Normal 0.0-0.2 [facility] Comment on above: Performed By: #### E SR, MONOTEST, CMP, CBC #### [facility] [address] [place] [address] [place] Basophils/100 WBC (Bld) 1.9 % Normal . [facility] Comment on above: Performed By: #### E SR, MONOTEST, CMP, CBC #### [facility] [address] [place] [address] [place] Eosinophils (Bld) [#/Vol] 0.4 10*3/uL Normal 0.0-0.45 [facility] Comment on above: Performed By: #### E SR, MONOTEST, CMP, CBC #### [facility] [address] [place] [id number] [place] Eosinophils/100 WBC (Bld) 4.5 % Normal . [facility] Comment on above: Performed By: #### E SR, MONOTEST, CMP, CBC #### [facility] [address] [place] [address] [place] Erythrocyte distribution width (RBC) [Ratio] 13.0 % Normal 11.9-15.3 [facility] Comment on above: Performed By: #### E SR, MONOTEST, CMP, CBC #### [address] Hematocrit (Bld) [Volume fraction] 36.7 % Normal 34.0-46.4 [facility] Comment on above: Performed By: #### E SR, MONOTEST, CMP, CBC #### [address] Hemoglobin (Bld) [Mass/Vol] 12.2 g/dL Normal 11.8-15.4 [facility] Comment on above: Performed By: #### E SR, MONOTEST, CMP, CBC #### [address] Lymphocytes (Bld) [#/Vol] 3.1 10*3/uL Normal 1.00-4.8 [facility] Comment on above: Performed By: #### E SR, MONOTEST, CMP, CBC #### [address] Lymphocytes/100 WBC (Bld) 39.4 % Normal . [facility] Comment on above: Performed By: #### E SR, MONOTEST, CMP, CBC #### [address] MCH (RBC) [Entitic mass] 28.5 pg Normal 24.7-34.3 [facility] Comment on above: Performed By: #### E SR, MONOTEST, CMP, CBC #### [address] MCV (RBC) [Entitic vol] 85.5 fL Normal 80-100 [facility] Comment on above: Performed By: #### E SR, MONOTEST, CMP, CBC #### [address] Mean Corpuscular HGB Conc 33.4 g/dL Normal 32.0-35.0 [facility] Comment on above: Performed By: #### E SR, MONOTEST, CMP, CBC #### [address] Monocytes (Bld) [#/Vol] 0.6 10*3/uL Normal 0.0-0.8 [facility] Comment on above: Performed By: #### E SR, MONOTEST, CMP, CBC #### [place] [address] [place] Monocytes/100 WBC (Bld) 17.33 % Normal 0.00-20.00 [facility] Comment on above: Performed By: #### E SR, MONOTEST, CMP, CBC #### [address] Monocytes/100 WBC (Bld) 7.7 % Normal . [facility] Comment on above: Performed By: #### E SR, MONOTEST, CMP, CBC #### [address] Neutrophils (Bld) [#/Vol] 3.7 10*3/uL Normal 1.8-7.7 [facility] Comment on above: Performed By: #### E SR, MONOTEST, CMP, CBC #### [address] Neutrophils/100 WBC (Bld) 46.5 % Normal . [facility] Comment on above: Performed By: #### E SR, MONOTEST, CMP, CBC #### [address] NRBC% 0.3 /100{WBC} Normal 0-0.5 [facility] Comment on above: Performed By: #### E SR, MONOTEST, CMP, CBC #### [address] Platelet mean volume (Bld) [Entitic vol] 8.8 fL Normal 6.3-10.7 [facility] Comment on above: Performed By: #### E SR, MONOTEST, CMP, CBC #### [place] [address] [place] Platelets (Bld) [#/Vol] 374 10*3/uL Normal 150-450 [facility] Comment on above: Performed By: #### E SR, MONOTEST, CMP, CBC #### [facility] [address] [place] [address] RBC (Bld) [#/Vol] 4.29 10*6/uL Normal 3.60-5.00 [facility] Comment on above: Performed By: #### E SR, MONOTEST, CMP, CBC #### [address] WBC (Bld) [#/Vol] 7.9 10*3/uL Normal 3.8-11.6 [facility] Comment on above: Performed By: #### E SR, MONOTEST, CMP, CBC #### [address] Comprehensive Metabolic Pane chely 02-08-2024 Albumin [Mass/Vol] 4.3 g/dL Normal 3.5-5.7 [facility] Comment on above: Performed By: #### E SR, MONOTEST, CMP, CBC #### [address] Albumin/Globulin [Mass ratio] 1.3 {ratio} Normal [facility] Comment on above: Performed By: #### E SR, MONOTEST, CMP, CBC #### [address] ALP [Catalytic activity/Vol] 105 U/L High 34-104 [facility] Comment on above: Performed By: #### E SR, MONOTEST, CMP, CBC #### [address] ALT [Catalytic activity/Vol] 18 U/L Normal 7-52 [facility] Comment on above: Performed By: #### E SR, MONOTEST, CMP, CBC #### [address] Anion gap [Moles/Vol] 11.7 mmol/L Normal 6.0-15.0 [facility] Comment on above: Performed By: #### E SR, MONOTEST, CMP, CBC #### [address] AST [Catalytic activity/Vol] 15 U/L Normal 13-39 [facility] Comment on above: Performed By: #### E SR, MONOTEST, CMP, CBC #### [address] Bilirubin [Mass/Vol] 0.4 mg/dL Normal 0.3-1.0 [facility] Comment on above: Performed By: #### E SR, MONOTEST, CMP, CBC #### [address] Calcium [Mass/Vol] 10.1 mg/dL Normal 8.6-10.3 [facility] Comment on above: Performed By: #### E SR, MONOTEST, CMP, CBC #### [address] Chloride [Moles/Vol] 103 mmol/L Normal 98-107 [facility] Comment on above: Performed By: #### E SR, MONOTEST, CMP, CBC #### [address] CO2 [Moles/Vol] 28.1 mmol/L Normal 21.0-31.0 [facility] Comment on above: Performed By: #### E SR, MONOTEST, CMP, CBC #### [address] Creatinine [Mass/Vol] 0.97 mg/dL Normal 0.60-1.20 [facility] Comment on above: Performed By: #### E SR, MONOTEST, CMP, CBC #### [place] [address] [place] Creatinine Clr Calc Pharmacy 74.15 Normal [facility] Comment on above: Result Comment: PERF ORMED BY: [place] [address] PATHOLOGIST ESTATE PLANNER MEAGAN SAMPSON M.D. Performed By: #### E SR, MONOTEST, CMP, CBC #### [place] [address] [place] GFR/1.73 sq M.predicted MDRD (S/P/Bld) [Vol rate/Area] mL/min/{1.73_m2} Normal [facility] Comment on above: Performed By: #### E ULICES SANCHEZ CMP, CBC #### [address] Globulin (S) [Mass/Vol] 3.4 g/dL Normal [facility] Comment on above: Performed By: #### ULICES Perez SR, CMP, CBC #### [address] Glucose [Mass/Vol] 90 mg/dL Normal 70-100 [facility] Comment on above: Result Comment: [facility] Glucose Reference Range is dependent on time and content of last meal. Glucose of more than 200 mg/dL in a nonstressed, ambulatory subject supports the diagnosis of Diabetes Mellitus. ADA recommended reference range Performed By: #### E ULICES SANCHEZ CMP, CBC #### [address] Potassium [Moles/Vol] 3.8 mmol/L Normal 3.5-5.1 [facility] Comment on above: Performed By: #### ULICES Perez SR, CMP, CBC #### [address] Protein [Mass/Vol] 7.7 g/dL Normal 6.4-8.9 [facility] Comment on above: Performed By: #### ULICES Perez SR, CMP, CBC #### [address] Sodium [Moles/Vol] 139 mmol/L Normal 136-145 [facility] Comment on above: Performed By: #### E ULICES SANCHEZ CMP, CBC #### [address] Urea nitrogen [Mass/Vol] 14 mg/dL Normal 7-25 [facility] Comment on above: Performed By: #### ULICES Perez SR CMP, CBC #### [address] Erythrocyte Sedimentation Ra jess 02-08-2024 ESR (Bld) [Velocity] 63 mm/h High 0-19 [facility] Comment on above: Result Comment: PERF ORMED BY: [place] [address] PATHOLOGIST ESTATE PLANNER MEAGAN SAMPSON M.D. Performed By: #### E SR, MONOTEST, CMP, CBC #### [facility] [address] [place] [address] [place] Monoteston 02-08-2024 Monotest Negative Normal Negative [facility] Comment on above: Result Comment: PERF ORMED BY: [place] [address] PATHOLOGIST ESTATE PLANNER MEAGAN SAMPSON M.D. Performed By: #### E SR, MONOTEST, CMP, CBC #### [address] Throat Cultureon 02-08-2024 Throat culture Heavy Normal Respiratory Ilsa 2 Days PERFORMED BY: [place] [address] PATHOLOGIST ESTATE PLANNER MEAGAN SAMPSON M.D. Normal [facility] Comment on above: Performed By: #### C UT #### [address] XR chest 2V*on 02-08-2024 XR chest 2V* [facility] [place] [address] [place] [address] XRay Report Signed Patient: Heather Johns MR#: [id number] : 1975 Acct:[id number] Age/Sex: 48 / F ADM Date: 02/08/24 Loc: ER Room: Type: [facility] ER Attending Dr: Copies to: Richard Coon [...] Hernandez II, MD 02/08/241443 Signed By: 02/08/241443 [facility] XR chest 2V* [place] [address] XRay Report Signed Patient: Heather Johns MR#: [id number] : 1975 Acct:[id number] Age/Sex: 48 / F ADM Date: 02/08/24 Loc: ER Room: Type: [facility] Attending Dr: Copies to: Richard Coon [...] Hernandez II, MD 02/08/241443 Signed By: 02/08/241443 [facility] US Abdomen RUQon 10-19-2023 EXAMINATION: US [...] explain right upper quadrant pain. MACRO: None [facility] Radiology Study observation (narrative) [facility] US Abdomen RUQOrdered By: Luann Constantino on 10-19-2023 [facility] Phone: US LIVER/GALL BLADDER/PANCRE ASon 10-19-2023 [...] upper quadrant pain. MACRO: None Normal [facility] Progress Noteson 08-13-2023 Sales Systems Engineer Authentication Interface Message Text Gastroenterology Clinic Visit Paulina Jones DO [address] [place] [address] Attending Physician: Dr. Bethany Johnson MD PCP: Leopoldo Woods, DAVID-ENGINEER BOOSTER AND EXHAUSTER Last GI visit: 12/05/2022 Last endoscopy: Most [...] Co (more content not included)... Normal [facility] [employer] Sales Systems Engineer Authentication Interface Message Text Patient was identified by name and date of . George BowensPatient at risk for falls:No Falls Risk protocol implemented: No Normal [facility] BASIC METABOLIC PANELon 09-0 Anion gap [Moles/Vol] 14 mmol/L Normal 10-20 [facility] Comment on above: Performed By: #### C H8, HEPATIC, LIP ####[facility] [id number] [place], [place], Calcium [Mass/Vol] 9.8 mg/dL Normal 8.4-10.4 [facility] Comment on above: Performed By: #### C H8, HEPATIC, LIP ####[facility] [id number] [place], [place], Chloride [Moles/Vol] 106 mmol/L Normal 97-111 [facility] Comment on above: Performed By: #### C H8, HEPATIC, LIP ####[facility] [id number] [place], CO2 [Moles/Vol] 22 mmol/L Normal 21-30 [facility] Comment on above: Performed By: #### C H8, HEPATIC, LIP ####[facility] [id number] [place], Creatinine [Mass/Vol] 0.99 mg/dL Normal 0.50-1.10 [facility] Comment on above: Performed By: #### C H8, HEPATIC, LIP ####[facility] [id number] [place], [place], ESTIMATED GFR (CKD-EPI) 70 mL/min/1.73sqm Normal >=60 [facility] Comment on above: Result Comment: 2020 [...] Inclusion of Race in Diagnosing Kidney Disease. [place] Journal of Kidney Diseases 202;79(2):268-88.e1. 2. N Engl J Med 1 Vol. 385 Issue 19 Pages 3812-4713 Performed By: #### C H8, HEPATIC, LIP ####[facility] [id number] [place], Glucose [Mass/Vol] 109 mg/dL Normal 68-110 [facility] Comment on above: Performed By: #### C H8, HEPATIC, LIP ####[facility] [id number] [place], [place], Potassium [Moles/Vol] 4.4 mmol/L Normal 3.3-5.3 [facility] Comment on above: Performed By: #### C H8, HEPATIC, LIP ####[facility] [id number] [place], Sodium [Moles/Vol] 138 mmol/L Normal 135-148 [facility] Comment on above: Performed By: #### C H8, HEPATIC, LIP ####S PATHOLOGY [id number] [place], Urea nitrogen [Mass/Vol] 22 mg/dL Normal 8-22 [facility] Comment on above: Performed By: #### C H8, HEPATIC, LIP ####S PATHOLOGY [id number] [place], [place], Basic metabolic 2000 panelon 08-08-2023 Anion gap [Moles/Vol] 14 mmol/L 10 - 20 [facility] Calcium [Mass/Vol] 9.8 mg/dL 8.4 - 10. 4 mg/dL [facility] Chloride [Moles/Vol] 106 mmol/L 97 - 111 mmol/L [facility] CO2 [Moles/Vol] 22 mmol/L 21 - 30 mmol/L [facility] Creatinine [Mass/Vol] 0.99 mg/dL 0.50 - 1.10 mg/dL [facility] GFR/1.73 sq M.predicted MDRD (S/P/Bld) [Vol rate/Area] 70 mL/min/{1.73_m2} - PINF [facility] Comment on above: 2020 CKD EPI [...] Inclusion of Race in Diagnosing Kidney Disease. Romanian Journal of Kidney Diseases 2021;79(2):268-88.e1. 2. N Engl J Med 2020 Vol. 385 Issue 19 Pages 0528-0374 Glucose [Mass/Vol] 109 mg/dL 68 - 110 mg/dL [facility] Interpretation and review of laboratory results Normal [facility] Potassium [Moles/Vol] 4.4 mmol/L 3.3 - 5.3 mmol/L [facility] Sodium [Moles/Vol] 138 mmol/L 135 - 148 mmol/L [facility] Urea nitrogen [Mass/Vol] 22 mg/dL 8 - 22 mg/dL [facility] CBC WITH DIFFERENTIALon Basophils (Bld) [#/Vol] 0.28 [...] [Mass/Vol] 12.9 g/dL 12.0 - 15.0 g/dL [facility] Interpretation and review of laboratory results [...] (Bld) [#/Vol] 0.28 10*3/uL High 0.00-0.20 [facility] Comment on above: Performed By: #### C BCDSAT #### S PATHOLOGY LABORATORY [address] [place] [address], Basophils/100 WBC (Bld) 3.3 % High <=1.9 [facility] Comment on above: Performed By: #### C BCDSAT #### S [facility] LABORATORY [address] [place] [address], Eosinophils (Bld) [#/Vol] 0.37 10*3/uL Normal 0.00-0.70 [facility] Comment on above: Performed By: #### C BCDSAT #### S PATHOLOGY LABORATORY [address] [place], [place], Eosinophils/100 WBC (Bld) 4.5 % High 0.1-4.0 [facility] Comment on above: Performed By: #### C BCDSAT #### S PATH[facility] LABORATORY [address] [place], [place], Erythrocyte distribution width (RBC) [Ratio] 12.6 % Normal 11.5-14.5 [facility] Comment on above: Performed By: #### C BCDSAT #### [facility] PATH[facility]Y LAB[facility]ATORY [address] [place] [address], Hematocrit (Bld) [Volume fraction] 39.5 % Normal 36.0-46.0 [facility] Comment on above: Performed By: #### C BCDSAT #### [facility]ORY [address] [place] [address], Hemoglobin (Bld) [Mass/Vol] 12.9 g/dL Normal 12.0-15.0 [facility] Comment on above: Performed By: #### C BCDSAT #### [facility] [address] [place] [address], Lymphocytes (Bld) [#/Vol] 3.85 10*3/uL Normal 1.00-4.80 [facility] Comment on above: Performed By: #### C BCDSAT #### [facility] [address] [place] [address], Lymphocytes/100 WBC (Bld) 46.5 % High 24.0-44.0 [facility] Comment on above: Performed By: #### C BCDSAT #### [facility] [address] [place] [address], MCH (RBC) [Entitic mass] 29.4 pg Normal 26.0-34.0 [facility] Comment on above: Performed By: #### C BCDSAT #### [facility] [address] [place] [address], MCHC (RBC) [Mass/Vol] 32.7 g/dL Normal 32.0-35.9 [facility] Comment on above: Performed By: #### C BCDSAT #### [facility] [address] [place] [address], MCV (RBC) [Entitic vol] 90 fL Normal 80-100 [facility] Comment on above: Performed By: #### C BCDSAT #### [facility] [address] [place] [address], MONOCYTE DISTRIBUTION WIDTH Normal The [facility] Comment on above: Performed By: #### C BCDSAT #### S PATHOLOGY LABORATORY [address] [place] [address], Monocytes (Bld) [#/Vol] 0.64 10*3/uL Normal 0.20-1.00 [facility] Comment on above: Performed By: #### C BCDSAT #### S PATHOLOGY LABORATORY [address] [place] [address], Monocytes/100 WBC (Bld) 7.7 % Normal 2.0-11.0 [facility] Comment on above: Performed By: #### C BCDSAT #### [facility] [address] [place] [address], Neutrophils (Bld) [#/Vol] 3.14 10*3/uL Normal 1.50-8.00 [facility] Comment on above: Performed By: #### C BCDSAT #### [facility] [address] [place] [address], Neutrophils/100 WBC (Bld) 38.0 % Normal 31.0-76.0 [facility] Comment on above: Performed By: #### C BCDSAT #### [facility] [address] [place] [address], Platelet mean volume (Bld) [Entitic vol] 9.6 fL Normal 7.5-11.2 [facility] Comment on above: Performed By: #### C BCDSAT #### [facility] [address] [place] [address], Platelets (Bld) [#/Vol] 328 10*3/uL Normal 150-400 [facility] Comment on above: Performed By: #### C BCDSAT #### S PATHOLOGY LABORATORY [address] [place] [address], RBC (Bld) [#/Vol] 4.40 10*6/uL Normal 4.00-5.20 [facility] Comment on above: Performed By: #### C BCDSAT #### S PATHOLOGY LABORATORY [address] [place] [address], WBC (Bld) [#/Vol] 8.3 10*3/uL Normal 4.5-11.5 The [facility] Comment on above: Performed By: #### C BCDSAT #### [facility] [address] [place], [place], CT ABD/PELVIS ED I/V IVÁN W / [...] Small hiatal hernia. MACRO: None Normal The [facility] CT Abdomen and Pelvis W cont rast IVOrdered By: Don Stoll on 08-08-2023 CT DLP 693.9 (mGy.cm) [facility] h Work Phone: CT Series Abdomen [facility] Work Phone: CTDI VOL 12.6 (mGy) [facility] Work Phone: PHANTOM TYPE IEC Body Dosimetry Phantom [facility] Work Phone: [facility] Work Phone: CT Abdomen and Pelvis [...] pelvis. 2. Small hiatal hernia. MACRO: None [facility] Radiology Study observation (narrative) [facility] D-DIMERon 08-08-2023 Fibrin D-dimer DDU (PPP) [Mass/Vol] NINF [facility] Interpretation and review of laboratory results Normal [facility] A D-Dimer result of <230 ng/mL DDU has a high negative predictive value for DVT and PE when combined with a clinical assessment of low to moderate probability. This cut-off value is specific for HemosIL D-dimer assay and values obtained using different methods may not be used interchangeably. Zimory DIMER < 200 Normal <230 [facility] Comment on above: Order Comment: A [...] D NIC #### [facility] [address] [place], [id number] ED Provider Noteson 08-08-20 Sales Systems Engineer Authentication Interface Message Text Abi for Josefaaneudy: CT a/pw/ NAD, d dimer less than 200 making PE or AD less likley, pt's feeling better, re exam: abdomen w/ + BS, ND, mild LUQ tenderness, no guarding/rebound. Stable for outpatient management Normal The [facility] [employer] Authentication Interface Message Text EMERGENCY DEPARTMENT - VISIT NOTE --------- HISTORY OF PRESENT ILLNESS ----- Chief Complaint Patient presents with Abdominal pain Epigastric pain x1.5 weeks. Pt states she thinks she has a hernia. Cardiac Cath Lab Technologist: not needed - patient preferred language is Qatari. The history is provided by the Patient. [...] incorporated. Review of External (Non- ED) Notes: [facility] ED notes from 2017 reviewed and show EGD w/ hiatal hernia Management Decisions: Diagnoses considered include left chest pain includes PE, muscle strain, GERD, low suspicion for ACS based on normal ekg and history and duration of sx. No evidence of PNA or PTX on cxr. Low suspicion for SBO based on hx and exam. Doubt biliary (more content not included)... Normal [facility] HEPATIC FUNCTION PANELon Albumin [Mass/Vol] 4.3 g/dL 3.4 - 5.1 g/dL [facility] ALP [Catalytic activity/Vol] 79 U/L [facility] ALT [Catalytic activity/Vol] 17 U/L [facility] AST [Catalytic activity/Vol] 13 U/[facility] Bilirubin [Mass/Vol] 0.4 mg/dL 0.1 - 1.5 mg/dL [facility] Bilirubin.direct [Mass/Vol] 0.06 mg/dL Low 0.10 - 0.30 mg/dL [facility] Interpretation and review of laboratory results Abnormal [facility] Protein [Mass/Vol] 7.4 g/dL 6.2 - 8.3 g/dL [facility] Albumin [Mass/Vol] 4.3 g/dL Normal 3.4-5.1 The [facility] Comment on above: Performed By: #### C H8, HEPATIC, LIP ####[facility] [id number] [place], [place], ALK 79 IU/L Normal 40-200 The [facility] Comment on above: Performed By: #### C H8, HEPATIC, LIP ####[facility] [id number] [place], ALT [Catalytic activity/Vol] 17 U/L Normal 7-40 [facility] Comment on above: Performed By: #### C H8, HEPATIC, LIP ####[facility] [id number] [place], AST [Catalytic activity/Vol] 13 U/L Normal 7-40 [facility] Comment on above: Performed By: #### C H8, HEPATIC, LIP ####[facility] [id number] [place], Bilirubin [Mass/Vol] 0.4 mg/dL Normal 0.1-1.5 [facility] Comment on above: Performed By: #### C H8, HEPATIC, LIP ####[facility] [id number] [place], Bilirubin.direct [Mass/Vol] 0.06 mg/dL Low 0.10-0.30 [facility] Comment on above: Performed By: #### C H8, HEPATIC, LIP ####[facility] [id number] [place], Protein [Mass/Vol] 7.4 g/dL Normal 6.2-8.3 The [facility] Comment on above: Performed By: #### C H8, HEPATIC, LIP ####[facility] [id number] [place], [place], LIPASEon 08-08-2023 Interpretation and review of laboratory results Normal [facility] Lipase [Catalytic activity/Vol] 12 U[facility] L[facility] 12 IU/L Normal <128 The [facility] Comment on above: Performed By: #### C H8, HEPATIC, LIP ####[facility] [id number] [place], [place], No Panel Informationon 08-08 [facility] Progress Noteson 08-08-2023 Sales Systems Engineer Authentication Interface Message Text Maya, Per 07/21/23 follow-up, patient is no longer using Humira until further notice due to possible respiratory infection. Patient now treating with topicals for now. Will hold Humira renewal until we hear further instruction for MD or patient. Normal [facility] URINALYSISon 08-08-2023 Appearance (U) Clear Clear [facility] Bacteria LM.HPF (Urine sed) [#/Area] Few /HPF [...] around 50%) Performed By: #### u rinalysis ####[facility] [id number] [place], SQUAMOUS EPITHELIAL 0-2 Normal 0-10 [facility] Comment on above: Order Comment: A [...] around 50%) Performed By: #### u rinalysis ####[facility] [id number] [place] [address], U APPEAR Clear Normal Clear The [facility] Comment on above: Order Comment: A [...] around 50%) Performed By: #### u rinalysis ####[facility] [id number] [place], [place], [place] BACTERIA Few Normal The [facility] Comment on above: Order Comment: A [...] around 50%) Performed By: #### u rinalysis ####[facility] [id number] [place], [place] BILI Negative Normal Negative [facility] Comment on above: Order Comment: A [...] around 50%) Performed By: #### u rinalysis ####[facility] [id number] [place], [place] BLOOD Negative Normal Negative [facility] Comment on above: Order Comment: A [...] around 50%) Performed By: #### u rinalysis ####[facility] [id number] [place], [place] COLOR Light Yellow Normal Colorless The [facility] Comment on above: Order Comment: A [...] Performed By: #### u rinalysis ####S PATHOLOGY [id number] [place], [place] KETONE Negative Normal Negative [facility] Comment on above: Order Comment: A [...] around 50%) Performed By: #### u rinalysis ####[facility] [id number] [place], [place] LEUK Positive Abnormal Negative [facility] Comment on above: Order Comment: A [...] for pyuria. Performed By: #### u rinalysis ####S PATHOLOGY [id number] [place], [place], [place] MUCOUS Present Normal [facility] Comment on above: Order Comment: A [...] around 50%) Performed By: #### u rinalysis ####[facility] [id number] [place], [place] NITRITE Negative Normal Negative The [facility] Comment on above: Order Comment: [...] around 50%) Performed By: #### u rinalysis ####[facility] [id number] [place], [place] PH 5.5 Normal 5.0-8.0 [facility] [...] around 50%) Performed By: #### u rinalysis ####[facility] [id number] [place], [place] PROTEIN Negative Normal Negative [facility] [...] around 50%) Performed By: #### u rinalysis ####[facility] [id number] [place], [place] RBC 0-2 Normal 0-2 [facility] Comment on above: Order Comment: [...] around 50%) Performed By: #### u rinalysis ####[facility] [id number] [place], [place] SG 1.021 Normal <=1.030 [facility] Comment on above: Order Comment: A [...] around 50%) Performed By: #### u rinalysis ####[facility] [id number] [place], [place] UROBILI Negative Normal Negative [facility] Comment on above: Order Comment: A [...] UTI around 50%) Performed By: #### u santosalysis ####[facility] [id number] [place], [place] WBC 0-2 Normal 0-2 [facility] Comment on above: Order Comment: A [...] UTI around 50%) Performed By: #### u santosalysilan ####[facility] [id number] [place], [place], XR CHEST PA+LAT 2 VIEWSon XR CHEST PA+LAT 2 VIEWS EXAMINATION: XR CHEST PA+LAT 2 VIEWS 08/08/2023 02:51 PM CLINICAL HISTORY: c/o chest pain x 2 weeks r/o infiltrate, edema, effusion ASSOCIATED DIAGNOSIS: c/o chest pain x 2 weeks r/o infiltrate, edema, effusion ORDERING PROVIDER: NHI HILLSOLOGISTS NOTE: COMPARISON: XR CHEST 2 VIEW PA+LAT 11/12/2022, 7:59 PM FINDINGS: Cardiomediastinal silhouette: Normal heart size. Trachea: Midline. Lungs and pleura: No pulmonary consolidation, pleural effusion or pneumothorax. Osseous structures: Minor osteophytic endplate spurring of multiple thoracic vertebra. IMPRESSION: No acute cardiopulmonary findings. MACRO: None Normal [facility] XR Chest PA and Lateralon EXAMINATION: [...] IMPRESSION: No acute cardiopulmonary findings. MACRO: None [facility] Radiology Study observation (narrative) [facility] XR Chest PA and LateralOrder ed By: Adan Daniels on 08-08-2023 [employer] [facility] Work Phone: Progress Noteson 07-22-2023 Sales Systems Engineer Authentication Interface Message Text Wi Dr. Grady, Please see below denial from this patient's insurance for the Vtama Cream: Please let me know how you would like to proceed. Joseph Garcia [facility] Sales Systems Engineer Authentication Interface Message Text [facility] - Prior Auth Denied- PHARMACY BENEFIT 07/22/23 1455 [facility] Prior Auth Info - Primary Specialty Med PA Outcome Denied Payor Approval Rx Benefit Insurance Payor [employer] Dual Medicare PA Number [id number] Denial Reason Required Step Therapy PA Notes [...] daily Unit of Measure g Is Approval [facility] Specific? N Thank you, Maya Andrews CPhT Normal [facility] Sales Systems Engineer Authentication Interface Message Text [facility] - Prior Auth Submitted- PHARMACY BENEFIT Medication and dosing: vtama 1% cream - apply 2 g externally daily Insurance has been verified to be: [facility] dual medicare (optumrx) PA submitted on date: 07/22/2023 Method submitted: chris Acosta: [id number] will addend this encounter with response from plan. Thank you, Maya Andrews CPhT Normal [facility] Progress Noteson 07-21-2023 Sales Systems Engineer Authentication Interface Message Text Documentation: Mode: Video [...] patient Pt advised to contact me over [email or web address] or call office at [phone] (more content not included)... Normal [facility] Telephone Encounteron 2022 Sales Systems Engineer Authentication Interface Message Text Called pt to let her know that she needs an follow up appointment per Dr. Grady. Pt states she is uncomfortable coming in for a visit and [facility] is the closest location for her. Pt wanting virtual appointment. Advised pt that I will reach out to provider to see if it is okay for a virtual appointment. Pt verbalized understanding. April Galo RN July 13, 2023 Normal [facility] Telephone Encounteron 2022 Sales Systems Engineer Authentication Interface Message Text Pt calling, requesting [...] no symptoms. Please contact. Thanks! Normal [facility] TUBERCULOSIS- CELL MEDIATED I*Ordered By: Karlee Ko on 12-24-2022 Interpretation and review of laboratory results Normal [facility] M. tuberculosis stim IFN-g by CD4+ CD8+ T-cells corrected for background Qn (Bld) [facility] M. tuberculosis stim IFN-g by CD4+ T-cells corrected for background Qn (Bld) [facility] TB (Cell Mediated) Negative Negative [facility] Interferon gamma release is measured for specimens [...] evidence of TB infection is not uncommon. [facility] Basic metabolic 2000 panelon 12-22-2022 Anion gap [Moles/Vol] 14 mmol/L 10 - 20 [facility] Calcium [Mass/Vol] 9.8 mg/dL 8.4 - 10. 4 mg/dL [facility] Chloride [Moles/Vol] 105 mmol/L 97 - 111 mmol/L [facility] CO2 [Moles/Vol] 28 mmol/L 21 - 30 mmol/L [facility] Creatinine [Mass/Vol] 0.86 mg/dL 0.50 - 1.10 mg/dL [facility] GFR/1.73 sq M.predicted MDRD (S/P/Bld) [Vol rate/Area] 84 mL/min/{1.73_m2} - PINF [facility] Comment on above: 2020 CKD EPI Equatio n using Creatinine without Race Comment: Estimated glomerular filtration rate (eGFR) is calculated without a race coefficient. Values should be interpreted in the context of the patient's full clinical presentation. Reference: 1. Josias C, Baelliott M, Shandra DC, et al.. A Unifying Approach for GFR Estimation: Recommendations of the NKF-ASN Task Force on Reassessing the Inclusion of Race in Diagnosing Kidney Disease. [place] Journal of Kidney Diseases 202;79(2):268-88.e1. 2. N Engl J Med 2020 Vol. 385 Issue 19 Pages 0069-0702 Glucose [Mass/Vol] 85 mg/dL 68 - 110 mg/dL [facility] Interpretation and review of laboratory results Normal [facility] Potassium [Moles/Vol] 4.2 mmol/L 3.3 - 5.3 mmol/L [facility] Sodium [Moles/Vol] 143 mmol/L 135 - 148 mmol/L [facility] Urea nitrogen [Mass/Vol] 22 mg/dL 8 - 22 mg/dL [facility] Diabetes tracking panelOrder ed By: Jaciel Neal on 12-22-2022 Average glucose Estimated from glycated hemoglobin (Bld) [Mass/Vol] 111 mg/dL [facility] HbA1c (Bld) [Mass fraction] 5.5 % 4.0 - 5.6 % [facility] Stomach Views for gastric emptying W radionuclide Darius 12-22-2022 EXAMINATION: HI GASTRIC EMPTYING STUDY 12/22/2022 12:29 PM CLINICAL [...] RADIOLOGY Eva Luna MD - 12/22/2022 EXAMINATION: HI GASTRIC EMPTYING STUDY 12/22/2022 12:29 PM CLINICAL HISTORY: evaluate for gastroparesis ASSOCIATED DIAGNOSIS: Indigestion ORDERING PROVIDER: MARIUSZ KRUGER TECHNTIEN NOTE: Pt ate 100% in 10 min [...] compared to the prior study. MACRO: None [facility] Radiology Study observation (narrative) [facility] Stomach Views for gastric emptying W radionuclide POOrdered By: Eva Luna on 12-22-2022 [facility] Work Phone: TSHon 12-22-2022 Interpretation and review of laboratory results Normal [facility] TSH Qn 1.358 m[IU]/L [facility] Comment on above: Referance range for women as applicable: First Trimester: 0. 050 to 3.700 uIU/mL Second Trimester: 0. 310 to 4.350 uIU/mL Third Trimester: 0. 410 to 5.180 uIU/mL [facility] Basic metabolic 2000 panelOr dered By: [...] (S/P/Bld) [Vol rate/Area] 77 mL/min/{1.73_m2} - PINF [facility] Comment on above: 2020 CKD EPI [...] Inclusion of Race in Diagnosing Kidney Disease. [place] Journal of Kidney Diseases 202;79(2):268-88.e1. 2. N Engl J Med 2020 Vol. 385 Issue 19 Pages 1702-5982 Glucose [Mass/Vol] 90 mg/dL 68 - 110 mg/dL [facility] Interpretation and review of laboratory results Normal [facility] Potassium [Moles/Vol] 4.4 mmol/L 3.3 - 5.3 mmol/L [facility] Comment on above: Hemolysis present Sodium [Moles/Vol] 139 mmol/L 135 - 148 mmol/L [facility] Urea nitrogen [Mass/Vol] 21 mg/dL 8 - 22 mg/dL [facility] CBC WITH DIFFERENTIALon 10-30 Basophils (Bld) [#/Vol] 0.10 10*3/uL 0.00 - [...] [Mass/Vol] 13.1 g/dL 12.0 - 15.0 g/dL [facility] Interpretation and review of laboratory results Abnormal [...] [facility] RBC (Bld) [#/Vol] 4.44 10*6/uL [facility] WBC (Bld) [#/Vol] 4.5 10*3/uL 4.5 - 11.5 K/uL [facility] HIGH SENSITIVITY TROPONIN Io n 11-12-2022 Troponin I.cardiac DL <= 0.01 ng/mL [Mass/Vol] ng/L NINF - 15 ng/L [facility] Troponin I.cardiac DL <= 0.0 1 ng/mL [Mass/Vol]on 11-12-2022 Interpretation and review of laboratory results Normal [facility] High Sensitivity Cardiac Troponin I (hsTnI) assay has replaced the conventional troponin assay at [facility]. All results are reported in whole numbers representing ng/L. Repeat test times for ruling out acute coronary syndrome (ACS) are every 2 hours instead of every 6-8 hours. [id number] conventional troponin (I-stat) will remain available in the [facility] ED results obtained by different labs or [...] 1 points, >45 ng/L = 2 points). [facility] URINALYSISon 11-12-2022 Appearance (U) Clear Clear [...] [facility] URINALYSIS - MICRO (SATELLIT E)on 11-12-2022 Bacteria LM.HPF (Urine sed) [#/Area] Many /HPF [facility] Epithelial cells.squamous LM.HPF (Urine sed) [#/Area] 6-10 [facility] Interpretation and review of laboratory results Abnormal [facility] Mucus Ql (Urine sed) Present [facility] Urate crystals amorphous LM.HPF (Urine sed) [#/Area] Moderate /HPF [facility] WBC (U) [#/Vol] 3-5 Abnormal [facility] WBC LM.HPF (Urine sed) [#/Area] None Seen [facility] XR Chest PA and Lateralon EXAMINATION: XR [...] No acute cardiopulmonary abnormality identified. MACRO: None [facility] Radiology Study observation (narrative) [facility] XR Chest PA and LateralOrder ed By: Carl Hough on 11-12-2022 [facility] Work Phone: ED NOTEon 03-07-2022 ED NOTE HNO ID: [id number] Author: Thania Luna RN Service: ? Author Type: Registered Nurse Type: ED Notes Filed: 03/07/2022 4:49 PM Note Text: Pt received written and verbal discharge instructions. Instructed pt to follow up with PCP or follow-up DR. Instructed to come back to Emergency Room if symptoms worsen. Pt verbalized understanding. [facility] ED NOTE HNO ID: [id number] Author: Yaritza Quarles RN Service: ? Author Type: Registered Nurse Type: ED Notes Filed: 03/07/2022 4:18 PM Note Text: Patient presents to the ED with c/o bilateral leg pain x2 weeks. Patient denies injury/trauma. Patient denies history of blood clots. [facility] ED PROV NOTEon 03-07-2022 ED PROV NOTE HNO ID: [id number] Author: Jose Oswald PA-C Service: ? Author Type: Physician Tipple Supervisor Type: ED Provider Notes Filed: 03/07/2022 4:39 [...] issues or complaints. 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 Normal [facility] Vital Signs Date Time Vital Sign Value Performing Clinician Faci lity 08-13-2023 11:01-0400 Body mass index (BMI) [Ratio] 29.6 kg/m2 Mack Vega MD Work Phone: [employer] 08-13-2023 11:01-0400 Body temperature 96.69 [degF] Mack Vega MD Work Phone: [employer] 08-13-2023 11:01-0400 Body weight 80.69 kg Mack Vega MD Work Phone: [employer] 08-13-2023 11:01-0400 Diastolic blood pressure 92 mm[Hg] Mack Vega MD Work Phone: [employer] 08-13-2023 11:01-0400 Heart rate 95 /min Mack Vega MD Work Phone: [employer] 08-13-2023 11:01-0400 SaO2% (BldA) [Mass fraction] 99 % Mack Vega MD Work Phone: [employer] 08-13-2023 11:01-0400 Systolic blood pressure 124 mm[Hg] Mack eVga MD Work Phone: [employer] 08-08-2023 16:11-0400 Diastolic blood pressure 89 mm[Hg] Nhi Abdul MD Work Phone: [employer] 08-08-2023 16:11-0400 Heart rate 68 /min Nhi Abdul MD Work Phone: [employer] 08-08-2023 16:11-0400 Respiratory rate 19 /min Nhi Abdul MD Work Phone: [employer] 08-08-2023 16:11-0400 Systolic blood pressure 139 mm[Hg] Nhi Abdul MD Work Phone: [employer] 08-08-2023 10:41-0400 Body temperature 98.01 [degF] Nhi Abdul MD Work Phone: [facility] 08-08-2023 10:41-0400 SaO2% (BldA) [Mass fraction] 97 % Nhi Abdul MD Work Phone: [employer] 12-05-2022 10:50-0500 Body mass index (BMI) [Ratio] 28.79 kg/m2 Mason Walls MD Work Phone: [employer] 12-05-2022 10:50-0500 Body temperature 97.7 [degF] Mason Walls MD Work Phone: [employer] 12-05-2022 10:50-0500 Body weight 78.47 kg Mason Walls MD Work Phone: [employer] 12-05-2022 10:50-0500 Diastolic blood pressure 74 mm[Hg] Mason Walls MD Work Phone: [employer] 12-05-2022 10:50-0500 Heart rate 98 /min Mason Walls MD Work Phone: [employer] 12-05-2022 10:50-0500 Systolic blood pressure 106 mm[Hg] Mason Walls MD Work Phone: [employer] 11-12-2022 17:49-0500 Body temperature 98.2 [degF] Antwan Woodruff MD Work Phone: [employer] 11-12-2022 17:49-0500 Diastolic blood pressure 68 mm[Hg] Antwan Woodruff MD Work Phone: [employer] 11-12-2022 17:49-0500 Heart rate 113 /min Antwan Woodruff MD Work Phone: [employer] 11-12-2022 17:49-0500 Respiratory rate 18 /min Antwan Woodruff MD Work Phone: [facility] 11-12-2022 17:49-0500 SaO2% (BldA) [Mass fraction] 97 % Antwan Woodruff MD Work Phone: [facility] 11-12-2022 17:49-0500 Systolic blood pressure 106 mm[Hg] Antwan Woodruff MD Work Phone: [facility] Encounters Encounter Date Encounter Type Care Provider Facility Start: 08-15-2024 End: 08-15-2024 ambulatory Kishan Child MD Facility: [facility] Start: 07-25-2024 End: 07-25-2024 ambulatory Kishan Child MD Facility: [facility] Start: 06-20-2024 End: 06-20-2024 Telephone encounter [facility] Rheum[facility] (Arthritis) Comment on above: Returned call Start: 06-09-2024 End: 06-09-2024 ambulatory LEOPOLDO Parsons Start: 02-17-2024 End: 02-18-2024 ambulatory Azul Evans Facility:[facility] Start: 02-17-2024 End: 02-17-2024 Patient encounter procedure Azul Evans [facility] Start: 02-08-2024 End: 02-08-2024 Emergency department patient visit Richard Coon Facility:[facility] Start: 10-19-2023 End: 10-19-2023 ambulatory UNKNOWN PROVIDER Facility:[facility] Start: 10-19-2023 End: 10-19-2023 Subsequent hospital visit by physician Op Ultrasound 3 [facility] Comment on above: Colicky RUQ abdomina l pain Start: 08-13-2023 End: 08-13-2023 Office outpatient visit 25 minutes Mack Vega MD Work Phone: [facility] Comment on above: Left upper quadrant abdominal pain (Primary Dx); Gastroesophageal reflux disease without esophagitis; Hiatal hernia; Body mass index (BMI) 29.0-29.9, adult Start: 08-13-2023 End: 08-13-2023 ambulatory UNKNOWN PROVIDER Facility:[facility] Start: 08-08-2023 End: 08-08-2023 Emergency department patient visit Nhi Abdul MD Work Phone: [facility] Comment on above: Abdominal pain (Epig astric pain x1.5 weeks. Pt states she thinks she has a hernia.) Start: 08-08-2023 Emergency department patient visit UNKNOWN PROVIDER Facility:[facility] Start: 08-07-2023 ambulatory Joseph Stalcup [facility] Start: 07-22-2023 ambulatory Joseph Staup [facility] Start: 07-22-2023 Patient encounter procedure Joseph Sta [facility] Comment on above: Specialty Pharmacy R eferral (VTAMA) Start: 07-21-2023 End: 07-21-2023 ambulatory UNKNOWN PROVIDER Facility:[facility] Start: 07-21-2023 End: 07-21-2023 Office outpatient visit 25 minutes Shira Grady DO Work Phone: [facility] Comment on above: Psoriasis (Primary D x); High risk medication use Start: 07-10-2023 ambulatory Regina newby MD Work Phone: [facility] Comment on above: Hi Start: 07-10-2023 E-mail encounter fro m caregiver Regina Bright MD Work Phone: [facility] Start: 04-10-2023 Specialty Pharmacy Ronit [facility] Comment on above: Specialty Pharmacy M edication Refill (Humira) Start: 04-08-2023 Refill Regina newby MD Work Phone: [facility] Comment on above: Refill Start: 02-20-2023 [facility] Comment on above: Specialty Pharmacy M edication Refill (Humira) Start: 02-19-2023 ambulatory Joseph Staup [facility] Start: 01-20-2023 Specialty Pharmacy [facility] Comment on above: Specialty Pharmacy M edication Refill (Humira ) Start: 12-23-2022 [facility] Comment on above: Specialty Pharmacy M edication Refill (Humira) Start: 12-22-2022 End: 12-22-2022 Clinical Support Pathology Provider [facility] Comment on above: Arrived Start: 12-22-2022 End: 12-22-2022 Subsequent hospital visit by physician Ip/Op Nuclear Prep [facility] Comment on above: Indigestion Start: 12-17-2022 Refill Regina newby MD Work Phone: [facility] Comment on above: Refill Start: 12-05-2022 Letter encounter Antwan Woodruff MD Work Phone: [facility] Start: 12-05-2022 End: 12-08-2022 Office outpatient new 45 minutes Mason Walls MD Work Phone: [facility] Comment on above: Indigestion (Primary Dx); Body mass index (BMI) 28.0-28.9, adult Start: 12-04-2022 Letter encounter Antwan Woodruff MD Work Phone: [facility] Radiology CT Scan Start: 12-03-2022 Letter encounter Antwan Woodruff MD Work Phone: [facility] Start: 11-28-2022 Specialty Pharmacy Ronit Zapata [facility] Comment on above: Specialty Pharmacy M edication Refill (Humira) Start: 11-12-2022 End: 11-12-2022 Emergency department patient visit Antwan Woodruff MD Work Phone: [facility] Emergency Department Start: 11-12-2022 End: 11-12-2022 Office outpatient visit 25 minutes Regina Bright MD Work Phone: [facility] Comment on above: Psoriasis (Primary D x) Start: 10-02-2022 Telephone encounter Regina barnes MD Work Phone: [facility] Comment on above: Dermatology Start: 08-13-2022 Refill Regina newby MD Work Phone: [facility] Comment on above: Refill Start: 07-23-2022 End: 07-23-2022 Phys/qhp telephone evaluation 11-20 min Regina Bright MD Work Phone: [facility] Comment on above: Palmoplantar pustula r psoriasis (Primary Dx); High risk medication use Start: 06-24-2022 Telephone encounter Joseph Alfredo [facility] Comment on above: Specialty Pharmacy R eferral (HUMIRA) Specialty Pharmacy R eferral (HUMIRA - [place] APPROVED) Start: 05-26-2022 End: 05-26-2022 Office outpatient new 20 minutes Alie Harper MD Work Phone: [facility] Comment on above: Psoriasis, unspecifi ed (Primary Dx) Start: 06-25-2019 End: 06-25-2019 Patient encounter procedure [facility] Facility: Procedures Date Procedure Procedure Detail Performing Clinician Start: 10-19-2023 Us abdominal real ti me w/image limited Leopoldo Woods CHARTERED WEALTH MANAGER-ENGINEER BOOSTER AND EXHAUSTER Work Phone: Start: 08-08-2023 Ct abdomen & [...] in Serum or Plasma Cholesterol [facility] Start: 08-30-2024 Influenza vaccination Influenza Vaccine (#1) [facility] Start: 12-09-2023 COVID-19 Vaccine () COVID-19 Vaccine () [facility] Start: 08-30-2023 Influenza vaccination Influenza Vaccine (#1) [facility] Start: 08-13-2023 End: 08-13-2023 Patient encounter procedure 08/13/2023 11:00 AM EDT Office Visit [facility] [address] [place] [id number] Mack Vega MD [address] [place] [id number] [facility] Start: 07-31-2023 Influenza vaccination Influenza Vaccine (#1) [facility] Start: 05-05-2023 Cholesterol [Mass/volume] in Serum or Plasma Cholesterol [facility] Start: 03-03-2023 COVID-19 Vaccine (5 - Moderna risk series) COVID-19 Vaccine (5 - Moderna risk series) [facility] Start: 01-29-2023 End: 01-29-2023 Patient encounter procedure 01/29/2023 Office Visit Gastroenterology Mason Walls MD [address] [place] [id number] [facility] Start: 12-22-2022 End: 12-22-2022 Patient encounter procedure 12/22/2022 Appointment Radiology [facility] Start: 12-22-2022 End: 12-22-2022 Patient encounter procedure 12/22/2022 Appointment Radiology [facility] Start: 12-22-2022 End: 12-22-2022 Patient encounter procedure 12/22/2022 Appointment Radiology [facility] Start: 12-05-2022 End: 12-05-2023 NM Stomach Views for gastric emptying W radionuclide PO NM GASTRIC EMPTYING STUDY Imaging Routine Indigestion Expected: 12/05/2022, Expires: 12/05/2023 [facility] Comment on above: Expected: 12/05/2022, Expires: 4 Start: 12-04-2022 End: 12-04-2022 Professional / ancillary services management 12/04/2022 Ancillary Procedure Radiology [facility] Dawn Ultrasound Start: 10-03-2022 End: 04-01-2023 Tb cell mediated antign respnse gamma interferon TUBERCULOSIS- CELL MEDIATED I* Lab Routine Psoriasis, unspecified High risk medication use Expected: 10/03/2022, Expires: 04/01/[address] [facility] Work Phone: Comment on above: Expected: 10/03/2022, Expires: 3 Start: 08-30-2022 Influenza vaccination Influenza Vaccine (#1) [facility] Start: 07-23-2022 End: 07-23-2022 Telemedicine consultation with patient 07/23/2022 Telemedicine Dermatology Regina Bright MD [address] [place] [id number] [facility] Start: 11-27-2021 COVID-19 Vaccine (4 - Booster for Moderna series) COVID-19 Vaccine (4 - Booster for Moderna series) [facility] Start: 11-20-2021 COVID-19 Vaccine (4 - Booster for Moderna series) COVID-19 Vaccine (4 - Booster for Moderna series) [facility] Start: 10-23-2021 COVID-19 Vaccine (4 - Booster for Moderna series) COVID-19 Vaccine (4 - Booster for Moderna series) [facility] Start: 2020 [facility] Start: 2015 Screening for malignant neoplasm of breast Mammography [facility] Start: 11-30-2012 Annual wellness visit Annual Wellness Visit (G0438) [facility] Start: 1996 Screening for malignant neoplasm of cervix Pap Smear [facility] Start: 1994 Hepatitis A (HAV) Vaccine (optional start 19+ years) Hepatitis A (HAV) Vaccine (optional start 19+ years) [facility] Start: 1994 Hepatitis B vaccination Hepatitis B (HBV) Vaccine (1 of 3 - 19+ 3-dose series) [facility] Start: 1994 Shingles (RZV) Vaccine (1 of 2) Shingles (RZV) Vaccine (1 of 2) [facility] Start: 1975 COVID-19 Vaccine ( formulation) COVID-19 Vaccine ( formulation) [facility] Assay of thyroid stimulating hormone tsh TSH Lab Routine Indigestion Ordered: 12/05/2022 [facility] Comment on above: Ordered: 12/05/2022 End: 07-23-2023 Basic metabolic 2000 panel - Serum or Plasma BASIC METABOLIC PANEL 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 1 Occurrences starting 07/23/2022 until 07/23/2023 [facility] Comment on above: 1 Occurrences starting 07/23/2022 until 07/23/2023 CBC W Auto Differential panel - Blood COMPLETE BLOOD COUNT W/DIFF 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 Ordered: 07/23/2022 [facility] Comment on above: Ordered: 07/23/2022 Diabetes tracking panel HEMOGLOBIN A1C Lab Routine Indigestion Ordered: 12/05/2022 [facility] Work Phone: Comment on above: Ordered: 12/05/2022 Hepatic function panel HEPATIC FUNCTION PANEL 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 Ordered: 07/23/2022 [facility] Comment on above: Ordered: 07/23/2022 End: 11-12-2022 Introduction needle/intracatheter vein IV INSERTION Procedures Routine One time for 1 Occurrences starting 11/12/2022 until 11/12/2022 [employer] Work Phone: Comment on above: One time for 1 Occurrences starting 10/30 until 11/12/2022 Tb cell mediated antign respnse gamma interferon TUBERCULOSIS- CELL MEDIATED I* 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 Ordered: 07/23/2022 [facility] Work Phone: Comment on above: Ordered: 07/23/2022 End: 08-08-2023 Urnls dip stick/tablet rgnt auto w/o microscopy URINALYSIS,AUTO-IN OFFICE Lab STAT One time for 1 Occurrences starting 08/08/2023 until 08/08/2023 [facility] Work Phone: Comment on above: One time for 1 Occurrences starting 07/2023 until 08/08/2023 Immunizations Immunization Date Immunization Notes Care Provider [facility] 10-14-2023 Influenza, injectabl e, Madin [place]ou[place] Canine Kidney, preservative free, quadrivalent 3 [facility] 10-14-2023 influenza virus vaccine, unspecified formulation To Assigned [facility] 09-12-2022 Influenza, injectabl e, [place] Canine Kidney, preservative free, quadrivalent Regina Bright MD Work Phone: [facility] 09-12-2022 influenza virus vaccine, unspecified formulation [facility] 11-06-2021 influenza, injectabl e, quadrivalent, preservative free Alie Harper MD Work Phone: [facility] 11-06-2021 pneumococcal polysaccharide vaccine, 23 valent Alie Harper MD Work Phone: [facility] 11-06-2021 influenza virus vaccine, unspecified formulation [facility] 08-28-2021 Moderna Monovalent ( 12+ yrs) COVID-19 vaccine, mRNA, spike protein, LNP, PF, 100 mcg/0.5 mL (MBF=257) Regina Bright MD Work Phone: [facility] 03-27-2021 Moderna SARS-COV-2 (COVID-19) vaccine, mRNA, spike protein, LNP, preservative free, 100 mcg/0.5 mL (primary) or 50 mcg/0.25 mL (booster) (NKE=348) Alie Harper MD Work Phone: [facility] 02-27-2021 Moderna SARS-COV-2 (COVID-19) vaccine, mRNA, spike protein, LNP, preservative free, 100 mcg/0.5 mL (primary) or 50 mcg/0.25 mL (booster) (EZO=912) Alie Harper MD Work Phone: [facility] 08-31-2020 influenza, injectabl e, quadrivalent, preservative free Alie Harper MD Work Phone: [facility] 09-21-2019 influenza, injectabl e, quadrivalent, preservative free Alie Harper MD Work Phone: [facility] 09-21-2019 pneumococcal conjuga te vaccine, 13 valent Alie Harper MD Work Phone: [facility] 08-16-2018 influenza, injectabl e, quadrivalent, preservative free Alie Harper MD Work Phone: [facility] 12-23-2017 influenza, injectabl e, quadrivalent, preservative free Alie Harper MD Work Phone: [facility] 08-18-2016 influenza, injectabl e, quadrivalent, preservative free Alie Harper MD Work Phone: [facility] 01-10-2016 pneumococcal polysaccharide vaccine, 23 valent Alie Harper MD Work Phone: [facility] Work Phone: 01-10-2016 tetanus toxoid, redu annalise diphtheria toxoid, and acellular pertussis vaccine, adsorbed Alie Harper MD Work Phone: [facility] Payers Date Payer Category Payer Self-pay 2023 Private Health Insurance 2022 Unknown [id number] 2022 Private Health Insurance [id number] 2020 Medicaid [id number] 2020 Medicare [id number] 2019 Medicare [id number] 2017 Medicare [id number] 2011 Medicare [id number] 1975 Unknown [id number] 2.16.84 [id number] 1975 Unknown [id number] 2.16.8 [id number] 1975 Unknown [id number] 2.16.8 [id number] 1975 Unknown [id number] 2.16. [id number] 1975 Unknown [id number] 2.16. [id number] 1975 Unknown [id number] 2.16. [id number] 1975 Unknown [id number] 2.16. [id number] 1975 Unknown [id number] 2.16. [id number] 1975 Unknown [id number] 2.16. [id number] 1975 Unknown [id number] 2.16. [id number] 1975 Unknown [id number] 2.16. [id number] 1959 Medicaid [id number] 1959 Medicare [id number] Unknown [id number] 2.16.8 [id number] Unknown [id number] 2.16.8 [id number] Social History Date Type Detail Facility Start: 12-18-2017 Tobacco smoking status NHIS Smokes tobacco daily [facility] Work Phone: [facility] of tobacco use [facility] Start: 12-18-2017 End: 09-22-2022 Cigarettes smoked current (pack per day) - Reported 0.25 [facility] Start: 12-18-2017 End: 12-05-2022 Tobacco use and exposure Smokeless tobacco non-user [facility] Start: 05-26-2022 End: 08-13-2023 Alcohol intake Current drinker of alcohol (finding) [facility] Start: 03-02-2018 History SDOH Alcohol Comment socially [facility] Start: 1975 Sex Assigned At Female [facility] Start: 09-23-2022 History SDOH Social Connections Phone 5 [facility] Start: 09-23-2022 History SDOH Social Connections Scientologist 1 [facility] Start: 09-23-2022 History SDOH Social Connections Membership 2 [facility] Start: 09-23-2022 History SDOH Social Connections Living 3 [facility] Start: 09-22-2022 Education 11 [facility] Start: 11-02-2022 End: 02-13-2023 Exposure to SARS-CoV-2 (event) Not sure [facility] Start: 12-05-2022 Tobacco smoking status NHIS [facility] History of tobacco use Current smoker [facility] Start: 05-20-2021 Gender identity Identifies as female gender (finding) [facility] Start: 05-20-2021 Sexual orientation Heterosexual (finding) [facility] Tobacco smoking status No Smokin g Status Entered [facility] Start: 09-22-2022 End: 08-13-2023 Sex Assigned At Female [facility] Within the last year , have you [...] 06-23-2024 Telephone encounter Note Referral queue updated. [facility] 06-23-2024 Miscellaneous Notes Referral queue updated. Pt [...] Active Requests tab. documented in this encounter [facility] 06-22-2024 Telephone encounter Note Pt called in. She wanted to let the office know that her insurance is messed up and she will not be scheduling a rheum appt until this is all taken care of. The patient will call back once the insurance is fixed. Pt stated thanks for calling. [facility] 06-22-2024 Miscellaneous Notes Pt called in. She [...] Active Requests tab. documented in this encounter [facility] 06-20-2024 Telephone encounter Note Please contact pt and schedule with the order in the Active Requests tab. [facility] 06-20-2024 Miscellaneous Notes Please contact pt and schedule with the order in the Active Requests tab. documented in this encounter [facility] 08-13-2023 History of Present illness Narrative Images from the original note were not included. Gastroenterology Clinic Visit Paulina Jones, DO [address] [place] [address] Attending Physician: Dr. Bethany Johnson MD PCP: Leopoldo Woods APRN-RACHEL Last GI visit: 12/05/2022 Last endoscopy: Most [...] this note was sent to PCP Leopoldo Wodos APRN-RACHEL Vega MD Fellow, PGY-4 Division of Gastroenterology & Hepatology [facility] GI ATTENDING: Patient seen and examined. Case discussed and reviewed with Dr. Vega. Agree with history/physical/note/findings and plan as outlined above. Bethany Johnson M.D. Patient was identified by name and date of . George BowensPatient at risk for falls:No Falls Risk protocol implemented: No documented in this encounter [facility] 08-08-2023 Physician Emergency department Note Abi Abdul: CT a/pw/ NAD, d dimer less than 200 making PE or AD less likley, pt's feeling better, re exam: abdomen w/ + BS, ND, mild LUQ tenderness, no guarding/rebound. Stable for outpatient management [facility] Work Phone: 08-08-2023 Emergency department Note Abi mcbride Roby: CT a/pw/ NAD, d dimer [...] BM's ok .No UTI symptoms. Went to [facility] for this problem, Exam, X-rays done. [...] Adan Martínez MD documented in this encounter [facility] 08-08-2023 Hospital Discharge instructions Paulina Jones [...] this visit: None documented in this encounter [facility] 08-08-2023 History of Present illness Narrative [...] is set to 08/21/23 Maya Andrews CPhT [facility] [phone] option 3 documented in this encounter [facility] 08-08-2023 Note Physician Triage Not e [...] BM's ok .No UTI symptoms. Went to [facility] for this problem, Exam, X-rays done. [...] ATTENDING/RESIDENT/PHYSICIAN/CN P/PA NOTATION Adan Martínez MD [facility] 08-08-2023 Physician Emergency department Note Physician [...] BM's ok .No UTI symptoms. Went to [facility] for this problem, Exam, X-rays done. [...] OTHER ATTENDING/RESIDENT/PHYSICIAN/CN P/PA NOTATION Adan Martínez MD [facility] Work Phone: 08-07-2023 Note SPECIALTY PHARMACY [facility] (Department: DERMATOLOGY) Prior Authorization Required. Patient Information: Heather Johns 1975 Specialty Medication Assessment: Medication Humira 40 mg/0.4ml Pen - Inject 0.4 ml under the skin every 14 days Current PA is set to 08/21/23 [facility] [phone] option 3 [facility] 07-22-2023 History of Present illness Narrative [...] Insurance Payor [employer] Dual Medicare PA Number [id number] Denial Reason Required Step Therapy PA Notes [...] daily Unit of Measure g Is Approval [facility] Specific? N Thank you, Maya Andrews CPhT SPECIALTY PHARMACY - Prior Auth Submitted- PHARMACY BENEFIT Medication and dosing: vtama 1% cream - apply 2 g externally daily Insurance has been verified to be: [facility] dual medicare (optumrx) PA submitted on date: 07/22/2023 Method submitted: [facility] [place]osta: [id number] Pharmacy will addend this encounter with response [...] Administered Influenza, Injectable, MDCK, Preservative Free, Quadrivalent (XTX=066) 09/12/2022 Influenza, injectable, quadrivalent, preservative free (IIV4) (QFV=249) 08/18/2016, 12/23/2017, 08/16/2018, 09/21/2019, 08/31/2020, 11/06/2021 Moderna Bivalent (6m-5y dose 1 or 2, 25 mcg/0.25 mL; 6-11y any dose, 25 mcg/0.25 mL; 12+ yrs any dose, 50 mcg/0.5 mL) COVID-19, mRNA, (DZJ=710) 01/06/2023 Moderna Monovalent (12+ yrs) COVID-19 vaccine, mRNA, spike protein, LNP, PF, 100 mcg/0.5 mL (VEP=425) 02/27/2021, 03/27/2021, 08/28/2021 Pneumococcal conjugate 13 valent (PCV13) (UHS=852) 09/21/2019 Pneumococcal polysaccharide 23 Valent (PPSV23) (CVX=33) 01/10/2016, 11/06/2021 Tdap (GZC=677) 01/10/2016 Is the request for initial or [...] treated ____ Thank you, Joseph Alfredo, PharmD, RPh [facility] [phone], Option #3 SPECIALTY PHARMACY REFERRAL (Department: DERMATOLOGY) Prior Authorization Required. Patient Information: Heather Johns 1975 Specialty Medication Assessment: Medication Vtama 1% cream - Apply 2 g externally daily Maya Andrews CPhT [facility] [phone] option 3 documented in this encounter [facility] 07-22-2023 History of Present illness Narrative [...] Insurance Payor [employer] Dual Medicare PA Number [id number] Denial Reason Required Step Therapy PA Notes [...] daily Unit of Measure g Is Approval [facility] Specific? N Thank you, Maya Andrews CPhT SPECIALTY PHARMACY - Prior Auth Submitted- PHARMACY BENEFIT Medication and dosing: vtama 1% cream - apply 2 g externally daily Insurance has been verified to be: [facility] dual medicare (optumrx) PA submitted on date: 07/22/2023 Method submitted: epa Acosta: [id number] Pharmacy will addend this encounter with response [...] Administered Influenza, Injectable, MDCK, Preservative Free, Quadrivalent (QHO=325) 09/12/2022 Influenza, injectable, quadrivalent, preservative free (IIV4) (KNX=612) 08/18/2016, 12/23/2017, 08/16/2018, 09/21/2019, 08/31/2020, 11/06/2021 Moderna Bivalent (6m-5y dose 1 or 2, 25 mcg/0.25 mL; 6-11y any dose, 25 mcg/0.25 mL; 12+ yrs any dose, 50 mcg/0.5 mL) COVID-19, mRNA, (OBK=318) 01/06/2023 Moderna Monovalent (12+ yrs) COVID-19 vaccine, mRNA, spike protein, LNP, PF, 100 mcg/0.5 mL (YWF=226) 02/27/2021, 03/27/2021, 08/28/2021 Pneumococcal conjugate 13 valent (PCV13) (MFH=784) 09/21/2019 Pneumococcal polysaccharide 23 Valent (PPSV23) (CVX=33) 01/10/2016, 11/06/2021 Tdap (ZCZ=726) 01/10/2016 Is the request for initial or [...] treated ____ Thank you, Joseph Alfredo, PharmBrian, [facility] [phone], Option #3 SPECIALTY PHARMACY REFERRAL (Department: DERMATOLOGY) Prior Authorization Required. Patient Information: Heather Johns 1975 Specialty Medication Assessment: Medication Vtama 1% cream - Apply 2 g externally daily Maya Andrews CPhT [facility] [phone] option 3 documented in this encounter [facility] 07-22-2023 History of Present illness Narrative Images from the original note were not included. SPECIALTY PHARMACY - Prior Auth Denied- PHARMACY BENEFIT 07/22/23 1455 Specialty Med Prior Auth Info - Primary Specialty Med PA Outcome Denied Payor Approval Rx Benefit Insurance Payor Opt[employer]Rx Dual Medicare PA Number [id number] Denial Reason Required Step Therapy PA Notes [...] daily Unit of Measure g Is Approval [place] Specific? N Thank you, Maya Andrews CPhT SPECIALTY PHARMACY - Prior Auth Submitted- PHARMACY BENEFIT Medication and dosing: vtama 1% cream - apply 2 g externally daily Insurance has been verified to be: [facility] dual medicare (optumrx) PA submitted on date: 07/22/2023 Method submitted: epa Acosta: [id number] Pharmacy will addend this encounter with response [...] Administered Influenza, Injectable, MDCK, Preservative Free, Quadrivalent (RTL=018) 09/12/2022 Influenza, injectable, quadrivalent, preservative free (IIV4) (IZS=289) 08/18/2016, 12/23/2017, 08/16/2018, 09/21/2019, 08/31/2020, 11/06/2021 Moderna Bivalent (6m-5y dose 1 or 2, 25 mcg/0.25 mL; 6-11y any dose, 25 mcg/0.25 mL; 12+ yrs any dose, 50 mcg/0.5 mL) COVID-19, mRNA, (ODI=422) 01/06/2023 Moderna Monovalent (12+ yrs) COVID-19 vaccine, mRNA, spike protein, LNP, PF, 100 mcg/0.5 mL (GWU=823) 02/27/2021, 03/27/2021, 08/28/2021 Pneumococcal conjugate 13 valent (PCV13) (NFC=739) 09/21/2019 Pneumococcal polysaccharide 23 Valent (PPSV23) (CVX=33) 01/10/2016, 11/06/2021 Tdap (FYR=222) 01/10/2016 Is the request for initial or [...] treated ____ Thank you, Joseph Alfredo, PharmBrian, [facility] [phone], Option #3 SPECIALTY PHARMACY REFERRAL (Department: DERMATOLOGY) Prior Authorization Required. Patient Information: Heather Johns 1975 Specialty Medication Assessment: Medication Vtama 1% cream - Apply 2 g externally daily Maya Andrews CPhT [facility] [phone] option 3 documented in this encounter [facility] 07-22-2023 History of Present illness Narrative SPECIALTY PHARMACY - Prior Auth Submitted- PHARMACY BENEFIT Medication and dosing: vtama 1% cream - apply 2 g externally daily Insurance has been verified to be: [facility] dual medicare (optumrx) [place] submitted on date: 07/22/2023 Method submitted: chris Acosta: [id number] Pharmacy will addend this encounter with response [...] Administered Influenza, Injectable, MDCK, Preservative Free, Quadrivalent (RSR=650) 09/12/2022 Influenza, injectable, quadrivalent, preservative free (IIV4) (FNO=770) 08/18/2016, 12/23/2017, 08/16/2018, 09/21/2019, 08/31/2020, 11/06/2021 Moderna Bivalent (6m-5y dose 1 or 2, 25 mcg/0.25 mL; 6-11y any dose, 25 mcg/0.25 mL; 12+ yrs any dose, 50 mcg/0.5 mL) COVID-19, mRNA, (BEQ=164) 01/06/2023 Moderna Monovalent (12+ yrs) COVID-19 vaccine, mRNA, spike protein, LNP, PF, 100 mcg/0.5 mL (FDY=113) 02/27/2021, 03/27/2021, 08/28/2021 Pneumococcal conjugate 13 valent (PCV13) (CLF=299) 09/21/2019 Pneumococcal polysaccharide 23 Valent (PPSV23) (CVX=33) 01/10/2016, 11/06/2021 Tdap (RLJ=497) 01/10/2016 Is the request for initial or [...] treated ____ Thank you, Joseph Alfredo, PharmBrian, [facility] [phone], Option #3 SPECIALTY PHARMACY REFERRAL (Department: DERMATOLOGY) Prior Authorization Required. Patient Information: Heather Johns 1975 Specialty Medication Assessment: Medication Vtama 1% cream - Apply 2 g externally daily Maya Andrews CPhT [facility] [phone] option 3 documented in this encounter [facility] 07-22-2023 Note Heather Johns 1974 SPECIALTY REFERRAL Medication: Tapinarof 1 % CREA Apply 2 g externally daily. Prescriber: Shira Grady DO ( ) Dermatology Dept Indication for treatment (ICD-10): Psoriasis (L40.9) Allergies Allergen Reactions Morphine Confusion Naproxen Upset Stomach Penicillins Rash Toradol [Ketorolac Tromethamine] Vomiting Tramadol Upset Stomach Weight was 79.4 kg on 02/13/2023 Immunization History Administered Date(s) Administered Influenza, Injectable, MDCK, Preservative Free, Quadrivalent (MVA=586) 09/12/2022 Influenza, injectable, quadrivalent, preservative free (IIV4) (SLF=613) 08/18/2016, 12/23/2017, 08/16/2018, 09/21/2019, 08/31/2020, 11/06/2021 Moderna Bivalent (6m-5y dose 1 or 2, 25 mcg/0.25 mL; 6-11y any dose, 25 mcg/0.25 mL; 12+ yrs any dose, 50 mcg/0.5 mL) COVID-19, mRNA, (NTO=090) 01/06/2023 Moderna Monovalent (12+ yrs) COVID-19 vaccine, mRNA, spike protein, LNP, PF, 100 mcg/0.5 mL (ICV=768) 02/27/2021, 03/27/2021, 08/28/2021 Pneumococcal conjugate 13 valent (PCV13) (CHI=399) 09/21/2019 Pneumococcal polysaccharide 23 Valent (PPSV23) (CVX=33) 01/10/2016, 11/06/2021 Tdap (RSS=323) 01/10/2016 Is the request for initial or [...] face, eyes (more content not included)... [facility] 07-22-2023 Note SPECIALTY PHARMACY [facility] [place] (Department: DERMATOLOGY) Prior Authorization Required. Patient Information: Heather Cantu Nat 1975 Specialty Medication Assessment: Medication Vtama 1% cream - Apply 2 g externally daily Maya Andrews director clinical information services [facility] [phone] option 3 [facility] 07-21-2023 History of Present illness Narrative [...] patient Pt advised to contact me over [employer] or call office at [phone] if unable to get your medications and [...] Shira Grady DO. documented in this encounter [facility] 07-13-2023 Miscellaneous Notes Called pt to let her know that she needs an follow up appointment per Dr. Grady. Pt states she is uncomfortable coming in for a visit and [facility] is the closest location for her. [...] Please contact. Thanks! documented in this encounter [facility] 07-13-2023 Telephone encounter Note Called pt to let her know that she needs an follow up appointment per Dr. Grady. Pt states she is uncomfortable coming in for a visit and [facility] is the closest location for her. Pt wanting virtual appointment. Advised pt that I will reach out to provider to see if it is okay for a virtual appointment. Pt verbalized understanding. April Galo RN July 13, 2023 [facility] 07-10-2023 Telephone encounter Note Pt calling, requesting to speak with Dr. Bright. Pt states she hadn't taken the Adalimumab (Humira Pen) 40 MG/0.4ML PNKT for over two months, but starting taking it again two weeks ago. Requesting a call to advise on how often this med should be taken and if she should take it when having no symptoms. Please contact. Thanks! [facility] 04-08-2023 Telephone encounter Note Most recent [...] 3 years, up to 5 values) None [facility] Work Phone: 04-08-2023 Telephone encounter Note Most recent visit in Dermatology was on 11/12/2022 with Regina Bright MD [facility] Work Phone: 04-08-2023 Miscellaneous Notes Most recent [...] This order will be electronically sent to [facility] Most recent visit in Dermatology was [...] Pharmacy related questions may be directed to: [phone] (MEDS) option 3 Thank you, Ronit Zapata CPhT [facility] [phone] (MEDS) option 3 documented in this encounter [facility] 04-08-2023 Telephone encounter Note SPECIALTY PHARMACY - Order Request for future fills. Requested Prescriptions Pending Prescriptions Disp Refills Adalimumab (Humira Pen) 40 MG/0.4ML PNKT 2 Each 3 Sig: Inject 40 mg under the skin every 14 days. [facility] Most recent visit in Dermatology was [...] Pharmacy related questions may be directed to: [phone] (MEDS) option 3 Thank you, Ronit Zapata CPhT [facility] [phone] (MEDS) option 3 [facility] 02-19-2023 History of Present illness Narrative Images from the original note were not included. SPECIALTY PHARMACY - Prior Auth Approved- PHARMACY BENEFIT 02/19/23 1305 Specialty Med Prior Auth Info - Primary Specialty Med PA Outcome Approval received Payor Approval Rx Benefit Insurance Payor [employer] PA Number [id number] Effective Start Date 02/19/23 Effective End Date 08/21/23 How was approval recieved? ePA workqueue PA Notes New Insurance Specialty Prior Auth Medication Details - Primary Medication(s) Humira 40 mg/0.4ml Pen Authorized Quantity 0.4 Unit of Measure mL Is Approval NDC Specific? N The pharmacy will contact patient Heather Johns and update her on the approval status. Pharmacy to contact patient regarding next step for medication fill. Encounter to be routed to appropriate refractory technician/pharmacist for medication fill outreach. Patient questions may be directed to: [phone] option 3 Thank you, Maya Andrews CPhT 02/18/2023 SPECIALTY PHARMACY - Prior Auth Submitted- PHARMACY BENEFIT Medication and dosing: Humira 40 mg/0.4ml pen - Inject 40 mg under the skin every 10 days Insurance has been verified to be: [facility] PA submitted on date: 02.18.2023 Method submitted: chris Acosta: [id number] Pharmacy will addend this encounter with response [...] fill. Encounter to be routed to appropriate refractory technician/pharmacist for medication fill outreach. Patient questions may be directed to: [phone] option 3 Thank you, Maya Andrews CPhT 06/21/2022 SPECIALTY PHARMACY REFERRAL (Department: Dermatology) Received request to process prior authorization RENEWAL for HUMIRA for this patient: (Current prior authorization will 07/05/22.) Patient Information: Heather Johns 1975 [address] [facility] [address] Insurance on file: ALBER ID: [id number] BIN: [id number] PCN: MEDDPRIME Group: [id number] Insurance on file: [place] ID: [id number] BIN: [id number] PCN: IS Group: [id number] Allergies Allergen Reactions [...] facility-administered medications on file prior to visit. [facility] Medical History Past Medical History: Diagnosis Date [...] 2019 for psoriasis, started on Humira. Today, [facility] presents for follow up. Pt has [...] accurate as listed in chart. Joseph Alfredo [facility] [phone] option 3 documented in this encounter [facility] 02-19-2023 History of Present illness Narrative Images from the original note were not included. SPECIALTY PHARMACY - Prior Auth Approved- PHARMACY BENEFIT 02/19/23 1305 Specialty Med Prior Auth Info - Primary Specialty Med PA Outcome Approval received Payor Approval Rx Benefit Insurance Payor [employer] PA Number [id number] Effective Start Date 02/19/23 Effective End Date 08/21/23 How was approval recieved? ePA workquepop CRUZ Notes New Insurance Specialty Prior Auth Medication Details - Primary Medication(s) Humira 40 mg/0.4ml Pen Authorized Quantity 0.4 Unit of Measure mL Is Approval [facility] Specific? N The pharmacy will contact patient Heather Johns and update her on the approval status. Pharmacy to contact patient regarding next step for medication fill. Encounter to be routed to appropriate refractory technician/pharmacist for medication fill outreach. Patient questions may be directed to: [phone] option 3 Thank you, Maya Andrews CPhT 02/18/2023 SPECIALTY PHARMACY - Prior Auth Submitted- PHARMACY BENEFIT Medication and dosing: Humira 40 mg/0.4ml pen - Inject 40 mg under the skin every 10 days Insurance has been verified to be: [facility] PA submitted on date: 02.18.2023 Method submitted: chris Acosta: [id number] Pharmacy will addend this encounter with response [...] fill. Encounter to be routed to appropriate refractory technician/pharmacist for medication fill outreach. Patient questions may be directed to: [phone] option 3 Thank you, Maya Andrews CPhT 06/21/2022 SPECIALTY PHARMACY REFERRAL (Department: Dermatology) Received request to process prior authorization RENEWAL for HUMIRA for this patient: (Current prior authorization will 07/05/22.) Patient Information: Heather Johns 1975 [address] [facility] [address] Insurance on file: ALBER ID: [id number] BIN: [id number] PCN: MEDDPRIME Group: [id number] Insurance on file: [place]ARK ID: [id number] BIN: [id number] PCN: IS Group: [id number] Allergies Allergen Reactions [...] 2019 for psoriasis, started on Humira. Today, [facility] presents for follow up. Pt has [...] accurate as listed in chart. Joseph Alfredo [facility] [phone] option 3 documented in this encounter [facility] 02-18-2023 History of Present illness Narrative SPECIALTY PHARMACY - Prior Auth Submitted- PHARMACY BENEFIT Medication and dosing: Humira 40 mg/0.4ml pen - Inject 40 mg under the skin every 10 days Insurance has been verified to be: [facility] PA submitted on date: 02.18.2023 Method submitted: [facility] Acosta: [id number] Pharmacy will addend this encounter with response [...] least annually. Thank you, Joseph Alfredo, PharmD, [facility] [phone], Option #3 documented in this encounter [facility] 01-30-2023 History of Present illness Narrative [...] least annually. Thank you, Joseph Alfredo, PharmD, [facility] [phone], Option #3 documented in this encounter [facility] 12-18-2022 Telephone encounter Note Most recent [...] 3 years, up to 5 values) None [facility] Work Phone: 12-18-2022 Miscellaneous Notes Most [...] This order will be electronically sent to [facility] Most recent visit in Dermatology was [...] Pharmacy related questions may be directed to: [phone] (MEDS) option 3 Thank you, Ronit Zapata [facility] [phone] (MEDS) option 3 documented in this encounter [facility] 12-17-2022 Telephone encounter Note SPECIALTY PHARMACY - Order Request for future fills. Requested Prescriptions Pending Prescriptions Disp Refills Adalimumab (Humira Pen) 40 MG/0.4ML PNKT 2 Each 3 Sig: Inject 40 mg under the skin every 14 days. This order will be electronically sent to [facility] Most recent visit in Dermatology was [...] Pharmacy related questions may be directed to: [phone] (MEDS) option 3 Thank you, Ronit Zapata [facility] [phone] (MEDS) option 3 [facility] 12-05-2022 Instructions Mason Walls MD - [...] Gastric emptying study. documented in this encounter [facility] 12-05-2022 History of Present illness Narrative Gastroenterology Clinic Visit PATIENT, SELF No address on file Attending Physician: Dr. Mariusz Kruger MD PCP: Leopoldo Woods APRN-ENGINEER BOOSTER AND EXHAUSTER Heather Johns is a 47 year old [...] procedure well. Dysphagia, unspecified type (Primary Diagnosis) [5670033] Gastroesophageal reflux disease without esophagitis [529316] Early satiety [780.94.ICD-9-CM] MICHELLE PATH SPECIMEN SENT: [...] Walls MD Division of Gastroenterology & Hepatology [facility] Teaching Physician Note I saw and [...] protocol implemented: no documented in this encounter [facility] 11-12-2022 Hospital Discharge instructions Aman Wright PA-C - 11/12/2022 9:17 PM EST Please follow-up with your primary care physician. Take Tylenol Motrin as needed for symptoms. The following attachments cannot be sent through Care Everywhere.Flu Discharge Instructions, Adult (Qatari)documented in this encounter [facility] 11-12-2022 Physician Emergency department Note Images from the original note were not included. Emergency Department Attending Note HISTORY OF PRESENT ILLNESS No chief complaint on file. not needed - patient preferred language is Qatari. HIPAA:Verbal permission granted from patient to discuss [...] HS Troponin I: <4 Troponin is negative [MI] ED Course User Index [MI] Aman Wright PA-C I have provided 1 [...] However, errors can occur. ANTONIO Mesa PA-C [facility] Work Phone: 11-12-2022 Emergency department Note Images from the original note were not included. Emergency Department Attending Note HISTORY OF PRESENT ILLNESS No chief complaint on file. not needed - patient preferred language is Qatari. HIPAA:Verbal permission granted from patient to discuss [...] HS Troponin I: <4 Troponin is negative [MI] ED Course User Index [MI] Aman Wright PA-C I have provided 1 [...] ANTONIO Mesa PA-C documented in this encounter [facility] 11-12-2022 History of Present illness Narrative Documentation: Mode: Video Consent: This visit was initiated by the patient. Audio and visual communication was utilized in real-time. I confirmed understanding of risks and benefits of telehealth visits and obtained consent to proceed with the telemedicine visit. Location of Patient: Home of patient Time-Based Billing Justifications: Charting in [facility] Patient visit (including performing a medically appropriate exam) Obtaining history (or reviewing separately obtained history) Reviewing (chart, labs, and other clinical notes) Counseling/educating the patient/family/caregiver Ordering/interpreting (medications, tests, procedures) [facility] Follow-up visit CC: Psoriasis HPI: [...] More than three times a week Attends [employer] Services: Never Active Member of Clubs or [...] clinic in 2 months. Regina Bright MD [facility] documented in this encounter [facility] 10-02-2022 Telephone encounter Note Patient notes that she had a fever, had diarrhea, but is now better. She is interested in switching Humira to another option. Counseled patient will need a video visit prior to this. Ok to resume humira at this time, q14 day dosing. External lab order for quantiferon placed (pt to obtain it at [facility] Note patient unwilling to come to [facility] for labs due to concern over infection. [facility] 10-02-2022 Miscellaneous Notes Patient notes that she had a fever, had diarrhea, but is now better. She is interested in switching Humira to another option. Counseled patient will need a video visit prior to this. Ok to resume humira at this time, q14 day dosing. External lab order for quantiferon placed (pt to obtain it at [facility]). Note patient unwilling to come to [facility] for labs due to concern over infection. documented in this encounter [facility] 07-23-2022 History of Present illness Narrative Documentation: Mode: Telephone Patient Patient Work Phone: Patient Cell Preferred phone: [phone] Consent: I confirmed patient understanding of the risks and benefits of telehealth visits and obtained consent to proceed with the telehealth visit. Location of Patient: Home of patient [facility] Follow-up visit CC: Follow up [...] visit in 1 month. Regina Bright MD [facility] SCRIBE ATTESTATION This note is precharted by Nick Munoz acting as scribe for Regina Bright MD. Scribe was not present during visit. documented in this encounter [facility] 07-02-2022 Telephone encounter Note Images from the original note were not included. SPECIALTY PHARMACY - Prior Auth Approved Medication and dosing: Humira 40 mg/0.4ml Pen - Inject 40 mg under the skin every 10 days Insurance: Beclabito/emanuel Prescriber: Gavi Nixon prior authorization has been approved beginning date 04/02/2022 until end date 07/02/2023. ( ) The pharmacy will contact patient Heather Johns and update her on the approval status. Pharmacy to contact patient regarding next step for medication fill. Encounter to be routed to appropriate refractory technician/pharmacist for medication fill outreach. Patient questions may be directed to: [phone] option 3 Thank you, Maya Andrews CPhT [facility] 07-02-2022 Miscellaneous Notes Images from the original note were not included. SPECIALTY PHARMACY - Prior Auth Approved Medication and dosing: Humira 40 mg/0.4ml Pen - Inject 40 mg under the skin every 10 days Insurance: Beclabito/emanuel Prescriber: Gavi Nixon prior authorization has been approved beginning date 04/02/2022 until end date 07/02/2023. ( ) The pharmacy will contact patient Heather Johns and update her on the approval status. Pharmacy to contact patient regarding next step for medication fill. Encounter to be routed to appropriate refractory technician/pharmacist for medication fill outreach. Patient questions may be directed to: [phone] option 3 Thank you, Maya Andrews CPhT SPECIALTY PHARMACY REFERRAL (Department: Dermatology) Received request to process prior authorization RENEWAL for HUMIRA for this patient: (Current prior authorization will 07/05/22.) Patient Information: Heather Johns 1975 [address] [facility] [address] Insurance on file: ALBER ID: [id number] BIN: [id number] PCN: MEDDPRIME Group: [id number] Insurance on file: [place]ARK ID: [id number] BIN: [id number] PCN: IS Group: [id number] Allergies Allergen Reactions [...] medications on file prior to visit. H Past Medical History: Diagnosis Date Anxiety Asthma [...] 2019 for psoriasis, started on Humira. Today, [facility] presents for follow up. Pt has [...] as listed in chart. Joseph Alfredo RPh [facility] [phone] option 3 documented in this encounter [facility] 06-24-2022 Telephone encounter Note SPECIALTY PHARMACY REFERRAL (Department: Dermatology) Received request to process prior authorization RENEWAL for HUMIRA for this patient: (Current prior authorization will 07/05/22.) Patient Information: Heather Johns 1975 [address] [facility] [address] Insurance on file: ALBER ID: [id number] BIN: [id number] PCN: MEDDPRIME Group: [id number] Insurance on file: [place]ARK ID: [id number] BIN: [id number] PCN: IS Group: [id number] Allergies Allergen Reactions [...] 2019 for psoriasis, started on Humira. Today, [facility] presents for follow up. Pt has [...] as listed in chart. Joseph Alfredo ming [facility] [phone] option 3 [facility] 06-24-2022 Miscellaneous Notes SPECIALTY PHARMACY REFERRAL (Department: Dermatology) Received request to process prior authorization RENEWAL for HUMIRA for this patient: (Current prior authorization will 07/05/22.) Patient Information: Heather Cantu Nat 1975 [address] [facility] [address] Insurance on file: ALBER ID: [id number] BIN: [id number] PCN: MEDDPRIME Group: [id number] Insurance on file: CAREMARK ID: [id number] BIN: [id number] PCN: IS Group: [id number] Allergies Allergen Reactions [...] 2019 for psoriasis, started on Humira. Today, [facility] presents for follow up. Pt has [...] PLAN: - Will submit to insurance for CELINE prior authorization renewal - Will communicate updates on prior authorization process in this note. - Medication reconciliation completed at last office visit. Medications are accurate as listed in chart. Joseph Alfredo RPh [facility] [phone] option 3 documented in this encounter [facility] 05-26-2022 History of Present illness Narrative [...] year old Pt here for Psoriasis, unspecified [[id number]] Orders & Meds Signed During This Encounter Adalimumab 40 MG/0.4ML PNKT PT educated about above condition. Recheck as needed for persistence, worsening, or appearance of new symptoms. Pt voiced understanding and agrees to plan. Alie Harper MD documented in this encounter [facility] Evaluation + Plan note No data available for this section [facility] Evaluation note Diagnosis Psoriasis, unspecified- Primary documented [...] instructions No data available for this section [facility] data available for this [facility] Purpose Family History No Family History [...] Referral Specialty Diagnoses / Procedures Referred By Contac t Referred To Contact Nutrition Diagnoses Indigestion Mariusz Kruger MD [address] [place] [address] [place] [address] [facility] NUTRITION [address] [place] [address] Referral ID Status Reason Start Date Expiration Date Visits Requested Visits Authorized [id number] Authorized Consultatio n-[facility] 12/05/2022 12/05/2023 3 3 Scheduling Instructions Please [...] Indigestion Procedures NM GASTRIC EMPTYING STUDY Gastroenterology [address] [place] [address] [facility] NUCLEAR MEDICINE [address] [place] [address] Referral ID Status Reason Start Date Expiration Date V isits Requested Visits Authorized [id number] Pending Review 12/05/2022 12/05/2023 1 1 Specialty Diagnoses / Procedures Referred By Contac t Referred To Contact Radiology Diagnoses Indigestion Procedures NM GASTRIC EMPTYING STUDY Mariusz Kruger MD [address] [place] [address] [place] [address] [facility] NUCLEAR MEDICINE [address] [place] [address] Referral ID Status Reason Start Date Expiration Date V isits Requested Visits Authorized [id number] Closed Transfer of Care-[facility] 12/16/2022 01/30/2023 1 1 Specialty Diagnoses / Procedures Referred By Contac t Referred To Contact Diagnoses Psoriasis Shira Grady DO [address] [place] [address] Referral ID Status Reason Start Date Expiration Date Visits Re quested Visits Authorized [id number] Denied 3 3 Specialty Diagnoses / Procedures Referred By Contac t Referred To Contact Gastroenterology Diagnoses Epigastric pain Gastroesophageal reflux disease, unspecified whether esophagitis present Paulina Jones DO [address] [place] [address] [facility] GASTROENTEROLOGY [address] [place] [address] Referral ID Status Reason Start Date Expiration Date V isits Requested Visits Authorized [id number] Authorized 08/08/2023 08/08/2024 3 3 Scheduling Instructions Please call the Gastroenterology Clinic at to schedule an appointment if one was not made for you today. Question Answer Reason for Referral: Pain-Abdomen [16] Which GI clinic should the patient be scheduled in? General GI Clinic Comments Most recent visit in Gastroenterology was on 12/05/2022 with Mason Walls MD Specialty Diagnoses / Procedures Referred By Contac t Referred To Contact Radiology Diagnoses Colicky RUQ abdominal pain Procedures US LIVER/GALL BLADDER/PANCREAS Leopoldo Woods, CHARTERED WEALTH MANAGER-ENGINEER BOOSTER AND EXHAUSTER [address] [place] [address] [facility] ULTRASOUND [address] [place] [address] Referral ID Status Reason Start Date Expiration Date Visits Re quested Visits Authorized [id number] Closed 10/15/2023 10/14/2024 1 1 Additional Source Comments INFORMATION SOURCE (unrecogn ized section and content) DATE CREATED AUTHOR 06/28/2019 [facility] DATE CREATED AUTHOR AUTHOR'S ORGANIZ ATION 03/10/2022 [facility] DATE CREATED AUTHOR AUTHOR'S ORGANIZ ATION 02/19/2024 [facility] DATE CREATED AUTHOR AUTHOR'S ORGANIZ ATION 02/23/2024 [facility] DATE CREATED AUTHOR AUTHOR'S ORGANIZ ATION 03/01/2024 [facility] DATE CREATED AUTHOR AUTHOR'S ORGANIZ ATION 06/15/2024 [facility] DATE CREATED AUTHOR AUTHOR'S ORGANIZ ATION 06/23/2024 [facility] DATE CREATED AUTHOR AUTHOR'S ORGANIZ ATION 08/26/2024 [facility] Reason for Visit (unrecogniz ed section and [...] NM GASTRIC EMPTYING STUDY Mariusz Kruger MD [address] [place] [address] [facility] NUCLEAR MEDICINE [address] [place] [address] Referral ID Status Reason Start Date Expiration Date V isits Requested Visits Authorized [id number] Closed Transfer of [facility] 12/16/2022 01/30/2023 1 1 Reason Onset Date [...] unspecified whether esophagitis present Paulina Jones DO [address] [place] [address] [facility] GASTROENTEROLOGY [address] [place] [address] Referral ID Status Reason Start Date Expiration Date V isits Requested Visits Authorized [id number] Authorized 08/08/2023 08/08/2024 3 3 Specialty Diagnoses / Procedures Referred By Idania verdin Referred To Contact Radiology Diagnoses Colicky RUQ abdominal pain Procedures US LIVER/GALL BLADDER/PANCREAS Leopoldo Woosd, CHARTERED WEALTH MANAGER-ENGINEER BOOSTER AND EXHAUSTER [address] [place] [id number] [facility] ULTRASOUND [address] [place] [address] Referral ID Status Reason Start Date Expiration Date Visits Re quested Visits Authorized [id number] Closed 10/15/2023 10/14/2024 1 1 Reason Onset Date Comments Returned call 06/20/2024 Care Teams (unrecognized sec tion and content) Biology Department Chair Relationship Specialty Start Date End Date Radha Negrete MD PCP - General Pediatrics 12/08/17 Antwan Woodruff MD [address] [place] [address] 56735 Fellow Gastroenterology 04/22/17 Don Moya MD [address] [place] [address] 25032 Physician Orthopaedic Surgery 09/04/20 Nathaniel Ovalle MD [address] [place] [address] 47909 Physician Pain Management 09/04/20 Lianne Mayo DO [address] [place] [address] 42758 Resident Dermatology 09/04/20 Biology Department Chair Relationship Specialty Start Date End Date Radha Negrete MD PCP - General Pediatrics 12/08/17 Antwan Woodruff MD [address] [place] [address] 34197 Fellow Gastroenterology 04/22/17 Don Moya MD [address] [place] [address] 65520 Physician Orthopaedic Surgery 09/04/20 Nathaniel Ovalle MD [address] [place] [address] 50701 Physician Pain Management 09/04/20 Lianne Mayo DO [address] [place] [address] [place] [address] Resident Dermatology 09/04/20 Karlee Sanchez MD [address] [place] [address] [place] [address] Physician Dermatology 05/31/22 Biology Department Chair Relationship Specialty Start Date End Date Radha Negrete MD PCP - General Pediatrics 12/08/17 Antwan Woodruff MD [address] [place] [address] 81537 Fellow Gastroenterology 04/22/17 Don Moya MD [address] [place] [address] 58455 Physician Orthopaedic Surgery 09/04/20 Nathaniel Ovalle MD [address] [place] [address] 05977 Physician Pain Management 09/04/20 Lianne Mayo DO [address] [place] [address] [place] [address] Resident Dermatology 09/04/20 Karlee Sanchez MD [address] [place] [address] [place] [address] Physician Dermatology 05/31/22 Biology Department Chair Relationship Specialty Start Date End Date Radha Negrete MD PCP - General Pediatrics 12/08/17 Antwan Woodruff MD [address] [place] [address] 58662 Fellow Gastroenterology 04/22/17 Don Moya MD [address] [place] [address] 25585 Physician Orthopaedic Surgery 09/04/20 Nathaniel Ovalle MD [address] [place] [address] 11600 Physician Pain Management 09/04/20 Lianne Mayo DO [address] [place] [address] [place] [address] Resident Dermatology 09/04/20 Karlee Sanchez MD [address] [place] [address] [place] [address] Physician Dermatology 05/31/22 Biology Department Chair Relationship Specialty Start Date End Date Radha Negrete MD PCP - General Pediatrics 12/08/17 Antwan Woodruff MD [address] [place] [address] 64566 Fellow Gastroenterology 04/22/17 Don Moya MD [address] [place] [address] 39167 Physician Orthopaedic Surgery 09/04/20 Nathaniel Ovalle MD [address] [place] [address] 81406 Physician Pain Management 09/04/20 Lianne Mayo DO [address] [place] [address] [place] [address] Resident Dermatology 09/04/20 Karlee Sanchez MD [address] [place] [address] [place] [address] Physician Dermatology 05/31/22 Regina Bright MD [address] [place] [address] 53096 Physician Dermatology 08/02/22 Biology Department Chair Relationship Specialty Start Date End Date Leopoldo Woods, CHARTERED WEALTH MANAGER-ENGINEER BOOSTER AND EXHAUSTER [address] [place] [address] PCP - General Family Medicine 11/12/22 Antwan Woodruff MD [address] [place] [address] 64117 Fellow Gastroenterology 04/22/17 Don Moya MD [address] [place] [address] 94914 Physician Orthopaedic Surgery 09/04/20 Nathaniel Ovalle MD [address] [place] [address] 46672 Physician Pain Management 09/04/20 Lianne Mayo DO [address] [place] [address] [place] [address] Resident Dermatology 09/04/20 Karlee Sanchez MD [address] [place] [address] [place] [address] Physician Dermatology 05/31/22 Regina Bright MD [address] [place] [address] 39658 Physician Dermatology 08/02/22 Biology Department Chair Relationship Specialty Start Date End Date Leopoldo Woods APRN-ENGINEER BOOSTER AND EXHAUSTER [address] [place] [address] PCP - General Family Medicine 11/12/22 Antwan Woodruff MD [address] [place] [address] 03635 Fellow Gastroenterology 04/22/17 Don Moya MD [address] [place] [address] 25613 Physician Orthopaedic Surgery 09/04/20 Nathaniel Ovalle MD [address] [place] [address] 69294 Physician Pain Management 09/04/20 Lianne Mayo DO [address] [place] [address] [place] [address] Resident Dermatology 09/04/20 Karlee Sanchez MD [address] [place] [address] [place] [address] Physician Dermatology 05/31/22 Regina Bright MD [address] [place] [address] 09153 Physician Dermatology 08/02/22 Biology Department Chair Relationship Specialty Start Date End Date Leopoldo Woods APRN-ENGINEER BOOSTER AND EXHAUSTER [address] [place] [address] PCP - General Family Medicine 11/12/22 Antwan Woodruff MD [address] [place] [address] 47914 Fellow Gastroenterology 04/22/17 Don Moya MD [address] [place] [address] 72590 Physician Orthopaedic Surgery 09/04/20 Nathaniel Ovalle MD [address] [place] [address] 78545 Physician Pain Management 09/04/20 Lianne Mayo DO [address] [place] [address] [place] [address] Resident Dermatology 09/04/20 Karlee Sanchez MD [address] [place] [address] [place] [address] Physician Dermatology 05/31/22 Regina Bright MD [address] [place] [address] 43865 Physician Dermatology 08/02/22 Biology Department Chair Relationship Specialty Start Date End Date Leopoldo Woods APRN-ENGINEER BOOSTER AND EXHAUSTER [address] [place] [address] PCP - General Family Medicine 11/12/22 Antwan Woodruff MD [address] [place] [address] 33143 Fellow Gastroenterology 04/22/17 Don Moya MD [address] [place] [address] 20153 Physician Orthopaedic Surgery 09/04/20 Nathaniel Ovalle MD [address] [place] [address] 86405 Physician Pain Management 09/04/20 Lianne Mayo DO [address] [place] [address] [place] [address] Resident Dermatology 09/04/20 Karlee Sanchez MD [address] [place] [address] [place] [address] Physician Dermatology 05/31/22 Regina Bright MD [address] [place] [address] 21771 Physician Dermatology 08/02/22 Biology Department Chair Relationship Specialty Start Date End Date Leopoldo Woods APRN-ENGINEER BOOSTER AND EXHAUSTER [address] [place] [address] PCP - General Family Medicine 11/12/22 Antwan Woodruff MD [address] [place] [address] 41361 Fellow Gastroenterology 04/22/17 Don Moya MD [address] [place] [address] 64050 Physician Orthopaedic Surgery 09/04/20 Nathaniel Ovalle MD [address] [place] [address] 03780 Physician Pain Management 09/04/20 Lianne Mayo DO [address] [place] [address] [place] [address] Resident Dermatology 09/04/20 Karlee Sanchez MD [address] [place] [address] [place] [address] Physician Dermatology 05/31/22 Regina Bright MD [address] [place] [address] 21846 Physician Dermatology 08/02/22 Biology Department Chair Relationship Specialty Start Date End Date Chcuk Leopoldo, CHARTERED WEALTH MANAGER-ENGINEER BOOSTER AND EXHAUSTER [address] [place] [address]76 PCP - General Family Medicine 11/12/22 Antwan Woodruff MD [address] [place] [address] 61980 Fellow Gastroenterology 04/22/17 Don Moya MD [address] [place] [address] 19041 Physician Orthopaedic Surgery 09/04/20 Nathaniel Ovalle MD [address] [place] [address] 06704 Physician Pain Management 09/04/20 Lianne Mayo DO [address] [place] [address] [place] [address] Resident Dermatology 09/04/20 Karlee Sanchez MD [address] [place] [address] [place] [address] Physician Dermatology 05/31/22 Regina Bright MD [address] [place] [address] 04950 Physician Dermatology 08/02/22 Biology Department Chair Relationship Specialty Start Date End Date Chuck Leopoldo, CHARTERED WEALTH MANAGER-[place] [address] [place] [address] PCP - General Family Medicine 11/12/22 Antwan Woodruff MD [address] [place] [address] 60771 Fellow Gastroenterology 04/22/17 Dno Moya MD [address] [place] [address] 73393 Physician Orthopaedic Surgery 09/04/20 Nathaniel Ovalle MD [address] [place] [address] 77620 Physician Pain Management 09/04/20 Lianne Mayo DO [address] [place] [address] [place] [address] Resident Dermatology 09/04/20 Karlee Sanchez MD [address] [place] [address] [place] [address] Physician Dermatology 05/31/22 Regina Bright MD [address] [place] [address] 80869 Physician Dermatology 08/02/22 Biology Department Chair Relationship Specialty Start Date End Date Leopoldo Woods APRN-ENGINEER BOOSTER AND EXHAUSTER [address] [place] [address] PCP - General Family Medicine 11/12/22 Antwan Woodruff MD [address] [place] [address] 74090 Fellow Gastroenterology 04/22/17 Don Moya MD [address] [place] [address] 51173 Physician Orthopaedic Surgery 09/04/20 Nathaniel Ovalle MD [address] [place] [address] 04873 Physician Pain Management 09/04/20 Lianne Mayo DO [address] [place] [address] [place] [address] Resident Dermatology 09/04/20 Karlee Sanchez MD [address] [place] [address] [place] [address] Physician Dermatology 05/31/22 Regina Bright MD [address] [place] [address] 65342 Physician Dermatology 08/02/22 Biology Department Chair Relationship Specialty Start Date End Date Leopoldo Woods APRN-ENGINEER BOOSTER AND EXHAUSTER [address] [place] [address] PCP - General Family Medicine 11/12/22 Antwan Woodruff MD [address] [place] [address] 10491 Fellow Gastroenterology 04/22/17 Don Moya MD [address] [place] [address] 17568 Physician Orthopaedic Surgery 09/04/20 Nathaniel Ovalle MD [address] [place] [address] 37301 Physician Pain Management 09/04/20 Lianne Mayo DO [address] [place] [address] [place] [address] Resident Dermatology 09/04/20 Karlee Sanchez MD [address] [place] [address] [place] [address] Physician Dermatology 05/31/22 Regina Bright MD [address] [place] [address] 84441 Physician Dermatology 08/02/22 Biology Department Chair Relationship Specialty Start Date End Date ChuckLeopoldo loredo, CHARTERED WEALTH MANAGER-[place] [address] [place] [address] PCP - General Family Medicine 11/12/22 Antwan Woodruff MD [address] [place] [address] 21384 Fellow Gastroenterology 04/22/17 Don Moya MD [address] [place] [address] 61231 Physician Orthopaedic Surgery 09/04/20 Nathaniel Ovalle MD [address] [place] [address] 73211 Physician Pain Management 09/04/20 Lianne Mayo DO [address] [place] [address] [place] [address] Resident Dermatology 09/04/20 Karlee Sanchez MD [address] [place] [address] [place] [address] Physician Dermatology 05/31/22 Regina Bright MD [address] [place] [address] 24151 Physician Dermatology 08/02/22 Biology Department Chair Relationship Specialty Start Date End Date Leopoldo Woods CHARTERED WEALTH MANAGER-ENGINEER BOOSTER AND EXHAUSTER [address] [place] [address] PCP - General Family Medicine 11/12/22 Antwan Woodruff MD [address] [place] [address] 61069 Fellow Gastroenterology 04/22/17 Don Moya MD [address] [place] [address] 88447 Physician Orthopaedic Surgery 09/04/20 Nathaniel Ovalle MD [address] [place] [address] 19003 Physician Pain Management 09/04/20 Lianne Mayo DO [address] [place] [address] [place] [address] Resident Dermatology 09/04/20 Kalree Sanchez MD [address] [place] [address] [place] [address] Physician Dermatology 05/31/22 Regina Bright MD [address] [place] [address] 35678 Physician Dermatology 08/02/22 Biology Department Chair Relationship Specialty Start Date End Date ChuckLeopoldo APRN-ENGINEER BOOSTER AND EXHAUSTER [address] [place] [address] PCP - General Family Medicine 11/12/22 Antwan Woodruff MD [address] [place] [address] 01468 Fellow Gastroenterology 04/22/17 Don Moya MD [address] [place] [address] 58117 Physician Orthopaedic Surgery 09/04/20 Nathaniel Ovalle MD [address] [place] [address] 63053 Physician Pain Management 09/04/20 Lianne Mayo DO [address] [place] [address] [place] [address] Resident Dermatology 09/04/20 Karlee Sanchez MD [address] [place] [address] [place] [address] Physician Dermatology 05/31/22 Regina Bright MD [address] [place] [address] 74356 Physician Dermatology 08/02/22 Mason Walls MD [address] [place] [address] 91724 Fellow Gastroenterology 01/03/23 Biology Department Chair Relationship Specialty Start Date End Date Leopoldo Woods, CHARTERED WEALTH MANAGER-[place] [address] [place] [address] PCP - General Family Medicine 11/12/22 Antwan Woodruff MD [address] [place] [address] 78678 Fellow Gastroenterology 04/22/17 Don Moya MD [address] [place] [address] 36203 Physician Orthopaedic Surgery 09/04/20 Nathaniel Ovalle MD [address] [place] [address] 24013 Physician Pain Management 09/04/20 Lianne Mayo DO [address] [place] [address] [place] [address] Resident Dermatology 09/04/20 Karlee Sanchez MD [address] [place] [address] [place] [address] Physician Dermatology 05/31/22 Regina Bright MD [address] [place] [address] 58296 Physician Dermatology 08/02/22 Mason Walls MD [address] [place] [address] 14861 Fellow Gastroenterology 01/03/23 Biology Department Chair Relationship Specialty Start Date End Date Chuck Leopoldo, CHARTERED WEALTH MANAGER-[place] [address] [place], [place] [id number] PCP - General Family Medicine 11/12/22 Antwan Woodruff MD [address] [place] [address] 59271 Fellow Gastroenterology 04/22/17 Don Moya MD [address] [place] [address] 07079 Physician Orthopaedic Surgery 09/04/20 Nathaniel Ovalle MD [address] [place] [address] 50642 Physician Pain Management 09/04/20 Lianne Mayo DO [address] [place] [address] [place] [address] Resident Dermatology 09/04/20 Karlee Sanchez MD [address] [place] [address] [place] [address] Physician Dermatology 05/31/22 Regina Bright MD [address] [place] [address] 42949 Physician Dermatology 08/02/22 Biology Department Chair Relationship Specialty Start Date End Date ChuckLeopoldo APRN-ENGINEER BOOSTER AND EXHAUSTER [address] [place] [address] PCP - General Family Medicine 11/12/22 Antwan Woodruff MD [address] [place] [address] 02637 Fellow Gastroenterology 04/22/17 Don Moya MD [address] [place] [address] 96251 Physician Orthopaedic Surgery 09/04/20 Nathaniel Ovalle MD [address] [place] [address] 90086 Physician Pain Management 09/04/20 Lianne Mayo DO [address] [place] [address] [place] [address] Resident Dermatology 09/04/20 Karlee Sanchez MD [address] [place] [address] [place] [address] Physician Dermatology 05/31/22 Regina Bright MD [address] [place] [address] 42716 Physician Dermatology 08/02/22 Mason Walls MD [address] [place] [address] 24102 Fellow Gastroenterology 01/03/23 Biology Department Chair Relationship Specialty Start Date End Date Leopoldo Woods APRN-ENGINEER BOOSTER AND EXHAUSTER [address] [place] [address] PCP - General Family Medicine 11/12/22 Antwan Woodruff MD [address] [place] [address] 33879 Fellow Gastroenterology 04/22/17 Don Moya MD [address] [place] [address] 59216 Physician Orthopaedic Surgery 09/04/20 Nathaniel Ovalle MD [address] [place] [address] 39264 Physician Pain Management 09/04/20 Lianne Mayo DO [address] [place] [address] [place] [address] Resident Dermatology 09/04/20 Karlee Sanchez MD [address] [place] [address] [place] [address] Physician Dermatology 05/31/22 Regina Bright MD [address] [place] [address] 61686 Physician Dermatology 08/02/22 Mason Walls MD [address] [place] [address] 83694 Fellow Gastroenterology 01/03/23 Biology Department Chair Relationship Specialty Start Date End Date Leopoldo Woods, DAVID-ENGINEER BOOSTER AND EXHAUSTER [facility] [place] [address] PCP - General Family Medicine 11/12/22 Antwan Woodruff MD [address] [place] [address] 56750 Fellow Gastroenterology 04/22/17 Don Moya MD [address] [place] [address] 67948 Physician Orthopaedic Surgery 09/04/20 Nathaniel Ovalle MD [address] [place] [address] 99979 Physician Pain Management 09/04/20 Lianne Mayo DO [address] [place] [address] [place] [address] Resident Dermatology 09/04/20 Karlee Sanchez MD [address] [place] [address] [place] [address] Physician Dermatology 05/31/22 Regina Bright MD [address] [place] [address] 02953 Physician Dermatology 08/02/22 Mason Walls MD [address] [place] [address] 69287 Fellow Gastroenterology 01/03/23 Biology Department Chair Relationship Specialty Start Date End Date ChuckLeopoldo loredo, CHARTERED WEALTH MANAGER-[facility] [address] [place] [address] PCP - General Family Medicine 11/12/22 Antwan Woodruff MD [address] [place] [address] 71562 Fellow Gastroenterology 04/22/17 Don Moya MD [address] [place] [address] 11674 Physician Orthopaedic Surgery 09/04/20 Nathaniel Ovalle MD [address] [place] [address] 39734 Physician Pain Management 09/04/20 Lianne Mayo DO [address] [place] [address] [place] [address] Resident Dermatology 09/04/20 Karlee Sanchez MD [address] [place] [address] [place] [address] Physician Dermatology 05/31/22 Regina Bright MD [address] [place] [address] 58646 Physician Dermatology 08/02/22 Mason Walls MD [address] [place] [address] 93153 Fellow Gastroenterology 01/03/23 Joseph Alfredo, [address] [address] Pharmacist 03/06/23 Ronit Zapata, [facility] Tech Pharmacology and Toxicology 03/06/23 Maya Andrews [address] [place] [id number] Medication Director Public Policy Pharmacology and Toxicology 03/06/23 Biology Department Chair Relationship Specialty Start Date End Date Chuck Leopoldo, CHARTERED WEALTH MANAGER-ENGINEER BOOSTER AND EXHAUSTER [address] [place], [place] [id number] PCP - General Family Medicine 11/12/22 Antwan Woodruff MD [address] [place] [address] Fellow Gastroenterology 04/22/17 Don Moya MD [address] [place] [address] Physician Orthopaedic Surgery 09/04/20 Nathaniel Ovalle MD [address] [place] [address] Physician Pain Management 09/04/20 Lianne Mayo DO [address] [place] [address] [address] [place] [id number] Resident Dermatology 09/04/20 Karlee Sanchez MD [address] [place] [address] [address] [place] [id number] Physician Dermatology 05/31/22 Regina Bright MD [address] [place] [address] Physician Dermatology 08/02/22 Mason Walls MD [address] [place] [address] Fellow Gastroenterology 01/03/23 Joseph Alfredo, [address] [address] Pharmacist 03/06/23 05/12/23 Ronit Zapata, [facility] Tech Pharmacology and Toxicology 03/06/23 05/12/23 Maya Andrews, [address] [place] [address] Medication Director Public Policy Pharmacology and Toxicology 03/06/23 05/12/23 Biology Department Chair Relationship Specialty Start Date End Date Leopoldo Woods APRN-ENGINEER BOOSTER AND EXHAUSTER [address] [place], [place] [id number] PCP - General Family Medicine 11/12/22 Antwan Woodruff MD [address] [place] [address] Fellow Gastroenterology 04/22/17 Don Moya MD [address] [place] [address] Physician Orthopaedic Surgery 09/04/20 Nathaniel Ovalle MD [address] [place] [address] Physician Pain Management 09/04/20 Lianne Mayo DO [address] [place] [address] [address] [place] [id number] Resident Dermatology 09/04/20 Karlee Sanchez MD [address] [place] [address] [place] [address] Physician Dermatology 05/31/22 Regina Bright MD [address] [place] [address] Physician Dermatology 08/02/22 Mason Walls MD [address] [place], [place] [phone] Fellow Gastroenterology 01/03/23 Joseph Alfredo, [address] [address] Pharmacist 03/06/23 05/12/23 Ronit Zapata, [facility] Tech Pharmacology and Toxicology 03/06/23 05/12/23 Maya Andrews, [address] [place] [address] Medication Director Public Policy Pharmacology and Toxicology 03/06/23 05/12/23 Biology Department Chair Relationship Specialty Start Date End Date Leopoldo Woods APRN-ENGINEER BOOSTER AND EXHAUSTER [address] [place], [place] [id number] PCP - General Family Medicine 11/12/22 Antwan Woodruff MD [address] [place], [place] [phone] Fellow Gastroenterology 04/22/17 Don Moya MD [address] [place] [address] Physician Orthopaedic Surgery 09/04/20 Nathaniel Ovalle MD [address] [place], [place] [phone] Physician Pain Management 09/04/20 Lianne Mayo DO [address] [place] [address] [address] [place] [id number] Resident Dermatology 09/04/20 Karlee Sanchez MD [address] [place] [address] [place] [address] Physician Dermatology 05/31/22 Regina Bright MD [address] [place] [address] Physician Dermatology 08/02/22 Mason Walls MD [address] [place] [address] 15557 Fellow Gastroenterology 01/03/23 Biology Department Chair Relationship Specialty Start Date End Date Leopoldo Woods APRN-ENGINEER BOOSTER AND EXHAUSTER [address] [place] [address] PCP - General Family Medicine 11/12/22 Antwan Woodruff MD [address] [place] [address] Fellow Gastroenterology 04/22/17 Don Moya MD [address] [place] [address] 38519 Physician Orthopaedic Surgery 09/04/20 Nathaniel Ovalle MD [address] [place] [address] Physician Pain Management 09/04/20 Lianne Mayo DO [address] [place] [address] [place] [address] Resident Dermatology 09/04/20 Karlee Sanchez MD [address] [place] [address] [place] [address] Physician Dermatology 05/31/22 Regina Bright MD [address] [place] [address] Physician Dermatology 08/02/22 Mason Walls MD [address] [place] [address] 80[address] Fellow Gastroenterology 01/03/23 Joseph Alfredo, [address] [address] Pharmacist 07/22/23 Ronit Zapata, [facility] Tech Pharmacology and Toxicology 07/22/23 Maya Andrews, director clinical information services[address] [place] [address] Medication Director Public Policy Pharmacology and Toxicology 07/22/23 Biology Department Chair Relationship Specialty Start Date End Date Leopoldo Woods APRN-ENGINEER BOOSTER AND EXHAUSTER [address] [place] [address] PCP - General Family Medicine 11/12/22 Antwan Woodruff MD [address] [place] [address] Fellow Gastroenterology 04/22/17 Don Moya MD [address] [place] [address]51 Physician Orthopaedic Surgery 09/04/20 Nathaniel Ovalle MD [address] [place] [address] 18816 Physician Pain Management 09/04/20 Lianne Mayo DO [address] [place] [address] [place] [address] Resident Dermatology 09/04/20 Karlee Sanchez MD [address] [place] [address] [place] [address] Physician Dermatology 05/31/22 Regina Bright MD [address] [place] [address] 9[address]30 Physician Dermatology 08/02/22 Mason Walls MD [address] [place] [address] 6[address] Fellow Gastroenterology 01/03/23 Joseph Alfredo, [address] [address] Pharmacist 07/22/23 Ronit Zapata, [facility] Tech Pharmacology and Toxicology 07/22/23 Maya Andrews, director clinical information services[address] [place] [address] Medication Director Public Policy Pharmacology and Toxicology 07/22/23 Biology Department Chair Relationship Specialty Start Date End Date Leopoldo Woods APRN-ENGINEER BOOSTER AND EXHAUSTER [address] [place] [address] PCP - General Family Medicine 11/12/22 Antwan Woodruff MD [address] [place] [address] 6[address] Fellow Gastroenterology 04/22/17 Don Moya MD [address] [place] [address] 7[address] Physician Orthopaedic Surgery 09/04/20 Nathaniel Ovalle MD [address] [place] [address] 53798 Physician Pain Management 09/04/20 Lianne Mayo DO [address] [place] [address] [place] [address] Resident Dermatology 09/04/20 Karlee Sanchez MD [address] [place] [address] [place] [address] Physician Dermatology 05/31/22 Regina Bright MD [address] [place] [address] Physician Dermatology 08/02/22 Mason Walls MD [address] [place] [address] Fellow Gastroenterology 01/03/23 Joseph Alfredo, [address] [address] Pharmacist 07/22/23 Ronit Zapata, [facility] Tech Pharmacology and Toxicology 07/22/23 Maya Andrews, director clinical information services[address] [place] [address] Medication Director Public Policy Pharmacology and Toxicology 07/22/23 Biology Department Chair Relationship Specialty Start Date End Date Leopoldo Woods APRN-ENGINEER BOOSTER AND EXHAUSTER [address] [place] [address] PCP - General Family Medicine 11/12/22 Antwan Woodruff MD [address] [place] [address] 617[address] Fellow Gastroenterology 04/22/17 Don Moya MD [address] [place] [address] Physician Orthopaedic Surgery 09/04/20 Nathaniel Ovalle MD [address] [place] [address]36 Physician Pain Management 09/04/20 Lianne Mayo DO [address] [place] [address] [place] [address] Resident Dermatology 09/04/20 Karlee Sanchez MD [address] [place] [address] [place] [address] Physician Dermatology 05/31/22 Regina Bright MD [address] [place] [address] Physician Dermatology 08/02/22 Mason Walls MD [address] [place] [address] Fellow Gastroenterology 01/03/23 Biology Department Chair Relationship Specialty Start Date End Date Leopoldo Woods APRN-ENGINEER BOOSTER AND EXHAUSTER [facility] [place] [address] PCP - General Family Medicine 11/12/22 Antwan Woodruff MD [address] [place] [address] Fellow Gastroenterology 04/22/17 Don Moya MD [address] [place] [address] Physician Orthopaedic Surgery 09/04/20 Nathaniel Ovalle MD [address] [place] [address] 486[address] Physician Pain Management 09/04/20 Lianne Mayo DO [address] [place] [address] [place] [address] Resident Dermatology 09/04/20 Karlee Sanchez MD [address] [place] [address] [place] [address] Physician Dermatology 05/31/22 Regina Bright MD [address] [place] [address] Physician Dermatology 08/02/22 Mason Walls MD [address] [place] [address] 16517 Fellow Gastroenterology 01/03/23 Joseph Alfredo, [address] [address] Pharmacist 07/22/23 Ronit Zapata [facility] Tech Pharmacology and Toxicology 07/22/23 Maya Andrews CPhT [address] [place] [address] [place] [address] Medication Director Public Policy Pharmacology and Toxicology 07/22/23 Shira Grady DO [address] [place] [address] [place] [address] Physician Dermatology 08/01/23 Biology Department Chair Relationship Specialty Start Date End Date Leopoldo Woods, CHARTERED WEALTH MANAGER-ENGINEER BOOSTER AND EXHAUSTER [address] [place] [address] PCP - General Family Medicine 11/12/22 Antwan Woodruff MD [address] [place] [address] Fellow Gastroenterology 04/22/17 Don Moya MD [address] [place], [place] [address] Physician Orthopaedic Surgery 09/04/20 Nathaniel Ovalle MD [address] [place] [address] Physician Pain Management 09/04/20 Lianne Mayo DO [address] [place] [address] [place] [address] Resident Dermatology 09/04/20 Karlee Sanchez MD [address] [place] [address] [place] [address] Physician Dermatology 05/31/22 Regina Bright MD [address] [place] [address] Physician Dermatology 08/02/22 Mason Walls MD [address] [place] [address] Fellow Gastroenterology 01/03/23 Joseph Alfredo, [address] [address] Pharmacist 07/22/23 Ronit Zapata, [facility] Tech Pharmacology and Toxicology 07/22/23 Maya Andrews, [address] [place] [address] Medication Director Public Policy Pharmacology and Toxicology 07/22/23 Shira Grady DO [address] [place] [address] [place] [address] Physician Dermatology 08/01/23 Biology Department Chair Relationship Specialty Start Date End Date Chuck Leopoldo, CHARTERED WEALTH MANAGER-ENGINEER BOOSTER AND EXHAUSTER [address] [place] [address] PCP - General Family Medicine 11/12/22 Antwan Woodruff MD [address] [place], [place] [phone] Fellow Gastroenterology 04/22/17 Don Moya MD [address] [place], [place] [address] Physician Orthopaedic Surgery 09/04/20 Nathaniel Ovalle MD [address] [place] [address] 12346 Physician Pain Management 09/04/20 Lianne Mayo DO [address] [place] [address] [address] [place] [id number] Resident Dermatology 09/04/20 Karlee Sanchez MD [address] [place] [address] [place] [address] Physician Dermatology 05/31/22 Regina Bright MD [address] [place] [address] Physician Dermatology 08/02/22 Mason Walls MD [address] [place] [address] 18490 Fellow Gastroenterology 01/03/23 Joseph Alfredo [address] [address] Pharmacist 07/22/23 Ronit Zapata, [facility] Tech Pharmacology and Toxicology 07/22/23 Maya Andrews, [address] [place] [address] Medication Director Public Policy Pharmacology and Toxicology 07/22/23 Shira Grady DO [address] [place] [address] [address] [place] [phone] Physician Dermatology 08/01/23 Biology Department Chair Relationship Specialty Start Date End Date Leopoldo Woods APRN-ENGINEER BOOSTER AND EXHAUSTER [address] [place], [place] [phone] PCP - General Family Medicine 11/12/22 Antwan Woodruff MD [address] [place], [place] [phone] Fellow Gastroenterology 04/22/17 Don Moya MD [address] [place] [address] Physician Orthopaedic Surgery 09/04/20 Nathaniel Ovalle MD [address] [place], [place] [address] Physician Pain Management 09/04/20 Lianne Mayo DO [address] [place] [address] [place] [address] Resident Dermatology 09/04/20 Karlee Sanchez MD [address] [place] [address] [address] [place] [phone] Physician Dermatology 05/31/22 Regina Bright MD [address] [place] [address] Physician Dermatology 08/02/22 Mason Walls MD [address] [place] [address] Fellow Gastroenterology 01/03/23 Joseph Alfredo, [place] [phone] Pharmacist 07/22/23 Ronit Zapata, [facility] Tech Pharmacology and Toxicology 07/22/23 Maya Andrews, [address] [place] [phone] Medication Director Public Policy Pharmacology and Toxicology 07/22/23 Shira Grady DO [address] [place] [address] [place] [address] Physician Dermatology 08/01/23 Biology Department Chair Relationship Specialty Start Date End Date Leopoldo Woods, DAVID-ENGINEER BOOSTER AND EXHAUSTER [address] [place], [place] [id number] PCP - General Family Medicine 11/12/22 Antwan Woodruff MD [address] [place] [address] Fellow Gastroenterology 04/22/17 Don Moya MD [address] [place] [address] Physician Orthopaedic Surgery 09/04/20 Nathaniel Ovalle MD [address] [place] [address] 34436 Physician Pain Management 09/04/20 Lianne Mayo DO [address] [place] [address] [address] [place] [id number] Resident Dermatology 09/04/20 Karlee Sanchez MD [address] [place] [address] [address] [place] [phone] Physician Dermatology 05/31/22 Regina Bright MD [address] [place] [address] Physician Dermatology 08/02/22 Mason Walls MD [address] [place] [address] Fellow Gastroenterology 01/03/23 Joseph Alfredo, [address] [address] Pharmacist 07/22/23 Ronit Zapata [facility] Tech Pharmacology and Toxicology 07/22/23 Maya Andrews [address] [place] [phone] Medication Director Public Policy Pharmacology and Toxicology 07/22/23 Shira Grady DO [address] [place] [address] [address] [place] [phone] Physician Dermatology 08/01/23 Biology Department Chair Relationship Specialty Start Date End Date ChuckLeopoldo loredoDAVID-ENGINEER BOOSTER AND EXHAUSTER [address] [place] [address] PCP - General Family Medicine 11/12/22 Antwan Woodruff MD [address] [place] [address] 74[address] Fellow Gastroenterology 04/22/17 Don Moya MD [address] [place] [address] 28276 Physician Orthopaedic Surgery 09/04/20 Nathaniel Ovalle MD [address] [place] [address] 05505 Physician Pain Management 09/04/20 Lianne Mayo DO [address] [place] [address] [place] [address] Resident Dermatology 09/04/20 Karlee Sanchez MD [address] [place] [address] [address] [place] [phone] Physician Dermatology 05/31/22 Regina Bright MD [address] [place] [address] Physician Dermatology 08/02/22 Mason Walls MD [address] [place] [address] Fellow Gastroenterology 01/03/23 Joseph Alfredo, [place] [phone] Pharmacist 07/22/23 08/28/23 Ronit Zapata [facility] Tech Pharmacology and Toxicology 07/22/23 08/28/23 Maya Andrews [address] [place] [phone] Medication Director Public Policy Pharmacology and Toxicology 07/22/23 08/28/23 Shira Grady DO [address] [place] [address] [address] [place] [phone] Physician Dermatology 08/01/23 Biology Department Chair Relationship Specialty Start Date End Date Leopoldo Woods APRN-ENGINEER BOOSTER AND EXHAUSTER [address] [place] [address] PCP - General Family Medicine 11/12/22 Antwan Woodruff MD [address] [place] [address] 56091 Fellow Gastroenterology 04/22/17 Don Moya MD [address] [place] [address] 68242 Physician Orthopaedic Surgery 09/04/20 Nathaniel Ovalle MD [address] [place] [address] 07938 Physician Pain Management 09/04/20 Lianne Mayo DO [address] [place] [address] [place] [address] Resident Dermatology 09/04/20 Karlee Sanchez MD [address] [place] [address] [address] [place] [phone] Physician Dermatology 05/31/22 Regina Bright MD [address] [place] [address] Physician Dermatology 08/02/22 Mason Walls MD [address] [place], [place] [address] Fellow Gastroenterology 01/03/23 Shira Grady DO [address] [place] [address] [place] [address] Physician Dermatology 08/01/23 Makc Vega MD [address] [place], [place] [address] Fellow Gastroenterology 09/05/23 Biology Department Chair Relationship Specialty Start Date End Date Leopoldo Woods APRN-ENGINEER BOOSTER AND EXHAUSTER [address] [place] [address] 46868 PCP - General Family Medicine 11/12/22 Antwan Woodruff MD [address] [place] [address] Fellow Gastroenterology 04/22/17 Don Moya MD [address] [place] [address] Physician Orthopaedic Surgery 09/04/20 Nathaniel Ovalle MD [address] [place] [address] Physician Pain Management 09/04/20 Lianne Mayo DO [address] [place] [address] [address] [place] [id number] Resident Dermatology 09/04/20 Karlee Sanchez MD [address] [place] [address] [place] [address] Physician Dermatology 05/31/22 Regina Bright MD [address] [place] [address] Physician Dermatology 08/02/22 Mason Walls MD [address] [place] [address] Fellow Gastroenterology 01/03/23 Shira Grady DO [address] [place] [address] [address] [place] [phone] Physician Dermatology 08/01/23 Mack Vega MD [address] [place], [place] [address] Fellow Gastroenterology 09/05/23 Biology Department Chair Relationship Specialty Start Date End Date Leopoldo Woods APRN-ENGINEER BOOSTER AND EXHAUSTER [facility] [place] [address] PCP - General Family Medicine 11/12/22 Antwan Woodruff MD [address] [place] [address] 32226 Fellow Gastroenterology 04/22/17 Don Moya MD [address] [place] [address] 38133 Physician Orthopaedic Surgery 09/04/20 Nathaniel Ovalle MD [address] [place] [address] 66762 Physician Pain Management 09/04/20 Lianne Mayo DO [address] [place] [address] [place] [address] Resident Dermatology 09/04/20 Karlee Sanchez MD [address] [place] [address] [place] [address] Physician Dermatology 05/31/22 Rgeina Bright MD [address] [place] [address] 10671 Physician Dermatology 08/02/22 Mason Walls MD [address] [place] [address] 07389 Fellow Gastroenterology 01/03/23 Shira Grady DO [address] [place] [address] [place] [address] Physician Dermatology 08/01/23 Mack Vega MD [address] [place] [address] 29153 Fellow Gastroenterology 09/05/23 Biology Department Chair Relationship Specialty Start Date End Date Leopoldo Woods, CHARTERED WEALTH MANAGER-ENGINEER BOOSTER AND EXHAUSTER [address] [place] [id number] PCP - General Family Medicine 11/12/22 Antwan Woodruff MD [address] [place] [address] 85694 Fellow Gastroenterology 04/22/17 Don Moya MD [address] [place] [address] 75694 Physician Orthopaedic Surgery 09/04/20 Nathaniel Ovalle MD [address] [place], [place] [phone] Physician Pain Management 09/04/20 Lianne Mayo DO [address] [place] [address] [address] [place] [id number] Resident Dermatology 09/04/20 Karlee Sanchez MD [address] [place] [address] [address] [place] [phone] Physician Dermatology 05/31/22 Regina Bright MD [address] [place] [address] Physician Dermatology 08/02/22 Mason Walls MD [address] [place] [address] 51456 Fellow Gastroenterology 01/03/23 Shira Grady DO [address] [place] [address] [place] [address] Physician Dermatology 08/01/23 Mack Vega MD [address] [place] [address] Fellow Gastroenterology 09/05/23 Scheduled Active and Recently [...] ONCE, 1 dose, On Thu11/12/22 at 2029 2030 (Hold/Not Given - Provider: Elen Morris RN [...] Mouth/Throat, STAT, 1 dose, On 08/08/23 at 2008 2000 (Given - Provid er: Romana Souza, MIKE) ondansetron (ZOFRAN) 4 MG/2ML injection (COMPLETED) 4 mg, Intravenous Push, STAT, 1 dose, On 08/08/23 at 1503 1438 (Given - Provid er: Mary Ko, MIKE) ondansetron (ZOFRAN) 4 MG/2ML injection (COMPLETED) 4 [...] (IV New Bag - P rovider: Naida Grey, MIKE)2008 (IV Stop - Provider: Romana Souza, MIKE) sucralfate (CARAFATE) tablet (COMPLETED) 1 g, Oral, [...] BE BASED ON THE PRIMARY CLINICAL RECORDS. [facility] [employer] [facility]. provides no warranty or guarantee of the accuracy or completeness of information in this document.
--- NOTE | 2024-08-31 13:13 | P.CN_ITS ---
Consult Note: HPI Data of Consult Patient: known to practice within the last 3 years Consult date: 07/25/24 Requesting Physician: Katie Davis NP Primary Care Provider: Non-Staff Physician, MD Consult Narrative Reason for consult: low back pain Narrative: 49yof who presents for evaluation. increasing low back and buttock pain. recently evaluated by spine surgeon, who recommended sij injection. imaging consistent with facet arthropathy and multilevel stenosis, worst at l4-5 and l5- s1. has engaged in >6 weeks of provider directed home exercises, without lasting relief. uses medical marijuana. denies adverse med side effects. we proceeded with bilateral SIJ injection, pt reports no immediate relief while anesthetized, at this point and time 70% improvement overall. continues to have moderate to severe low back pain and now right leg numbness tingling weakness of RLE with increasing cramps to BLE, pain increased with standing walking and stairs improved with changing positions and forward flexion. cc:: CC: Katie Davis NP Review of Systems ROS Status of ROS 10 or more systems reviewed and unremark able except as noted in history and below Musculoskeletal Reports: back pain and extremity pain Meds Home Medications and Allergies Home Medications ?Medication ?Instructions ?Recorded ?Confirmed ?Type albuterol sulfate 90 mcg/actuation 2 puff inhalation Q4H PRN 07/29/23 08/15/24 History aerosol inhaler shortness of breath or wheezing atorvastatin 20 mg tablet 20 mg PO DAILY 07/29/23 08/15/24 History duloxetine 30 mg capsule,delayed 60 mg PO DAILY 07/29/23 08/15/24 History release omeprazole 40 mg capsule,delayed 40 mg PO BID 04/04/24 08/15/24 History release baclofen 10 mg tablet 10 mg PO TID 07/25/24 08/15/24 History qtmbifqyamllxfd-jecuxjbpfnkpezm-UK 5 ml PO Q6H PRN sinus symptoms 07/25/24 08/15/24 History 2 mg-30 mg-10 mg/5 mL oral syrup calcium carbonate 500 mg PO DAILY 07/25/24 08/15/24 History cetirizine 10 mg tablet (Zyrtec) 10 mg PO DAILY PRN allergy symptoms 07/25/24 08/15/24 History cholecalciferol (vitamin D3) 50 2,000 unit PO DAILY 07/25/24 08/15/24 History mcg (2,000 unit) capsule famotidine 10 mg tablet (Pepcid AC) 20 mg PO Q6H 07/25/24 08/15/24 History fluticasone propionate 110 2 inh inhalation BID 07/25/24 08/15/24 History mcg/actuation HFA aerosol inhaler fluticasone propionate 50 2 spray intranasal DAILY PRN 07/25/24 08/15/24 History mcg/actuation nasal allergy symptoms spray,suspension ibuprofen 800 mg tablet 800 mg PO Q6H 07/25/24 08/15/24 History lamotrigine 100 mg tablet 100 mg PO DAILY 07/25/24 08/15/24 History ondansetron 4 mg disintegrating 4 mg PO Q8H 07/25/24 08/15/24 History tablet pregabalin 25 mg capsule 25 mg PO BID 07/25/24 08/15/24 History sucralfate 1 gram tablet 1 g PO Q6H 07/25/24 08/15/24 History Allergies Allergy/AdvReac Type Severity Reaction Status Date / Time amoxicillin Allergy Severe Unknown Verified 08/15/24 11:11 morphine Allergy Severe Unknown Verified 08/15/24 11:11 naproxen Allergy Severe Nausea Verified 08/15/24 11:11 Penicillins Allergy Severe Unknown Verified 08/15/24 11:11 Exam Constitutional Documenting provider has reviewed patient's vital signs: yes Common normals: no apparent distress, oriented x3, healthy appearing, alert and well nourished General appearance: cooperative [facility] Common normals: normocephalic, hearing grossly normal bilaterally and moist oral mucous membranes Head and scalp: normocephalic Eye Common normals: PERRL Pupil: PERRL Neck & C-Spine Common normals: full ROM General: normal visual inspection Chest Common normals: inspection of chest normal Respiratory Common normals: normal respiratory effort, no retractions and no use of accessory muscles Back & Pelvis Lumbar spine/lower back: normal to inspection, lumbar ROM normal, pain with ROM and straight leg raise positive left Sacroiliac joints: SI joints normal Other: negative bilateral neelima(patricks), gaenslens, thigh thrust, compression test strength 4/5 in RLE 5/5 in LLE altered sensation to right L4,5,S1 Extremity Common normals: normal to inspection and full ROM Neuro Common normals: oriented x3, CN's II-XII intact bilaterally, moves all extremities, no focal motor deficits, no sensory deficits noted and deep tendon reflexes 2+ bilaterally Sensorium/orientation: alert Motor exam: strength 5/5 throughout and no movement abnormalities noted Psych Common normals: mental status grossly normal, thought process normal, cooperative, affect normal, speech normal and activity/motor behavior normal Speech: normal speech Thought process: normal thought process Results Additional Findings Additional findings: If on a controlled substance or opioids, I have checked an OARRS report on this patient and there are no aberrancies noted in the prescribing history.??If on a controlled substance or opioid a drug screen was completed and reviewed within the last year, and if there has not been a drug screen completed we ordered one today to monitor higher risk, state monitored pain medication use. As part of providing excellent, safe, comprehensive care, the following was completed at our patient's visit: 1. A medication reconciliation and review to ensure accurate knowledge of current/active medications, including asking our patients to inform us about any mfkn-ykn-uymckng medications or herbal remedies/nutritional supplements/alternative remedies. 2. A review to specifically ensure our patients have had annual screening for screening for depression, screening for tobacco use, and screening for unhealthy alcohol use. For concerning screenings had a discussion with the patient, provided patient education, and recommended follow-up with primary care provider when appropriate. If patient noted with a risk of falling, they received education on strength, gait, and balance training to prevent future risk of falling. Assessment and Plan Assessment and Plan (1) Lumbar stenosis with neurogenic claudication: (2) Sacroiliac joint dysfunction of both sides: (3) Arthritis of low back: (4) Low back pain: (5) Lumbar spondylosis: Plan proceed with right L4/5 L5/s1 TFESI under fluoroscopy with 10mg po valium 30-60 mins prior to procedure for anxiolysis, risks vs benefits reviewed continue current medications through PCP, reports allergy to cyclobenzaprine and has failed robaxin in the past. NNCP due to marijuana use, not interested in opioids nor do we recommend opioids continue HEP as tolerated f/u 2 weeks after TFESI
== END 2024-08-31 12:37 | disposition home or self-care (01) ==
LOC: PM 12:37
PROVIDERS: Visit Provider Nurse Practitioner
DX: M48.062 Spinal stenosis, lumbar region with neurogenic claudication (principal); M53.3 Sacrococcygeal disorders, not elsewhere classified; M47.816 Spondylosis without myelopathy or radiculopathy, lumbar region; M54.50 Low back pain, unspecified
CPT/HCPCS: G0463

== ENCOUNTER 2025-04-20 14:43 | Outpatient (OUT) | payer MEDICARE, MEDICAID, SELFPAY ==
--- OUTSIDE RECORDS SUMMARY | 2025-04-07 08:05 | XMS_ITS ---
Author Name Auto Generated Organization OHIP Care Team Providers [facility] Name Role Phone LEOPOLDO DUMONT Admitting Unavailable LEOPOLDO DUMONT Attending Unavailable LEOPOLDO DUMONT Primary Care Unavailable LEOPOLDO DUMONT Consulting Unavailable Mateusz CAVANAUGH, Kishan Thomas Attending Unavailable Mateusz CAVANAUGH, Kishan Thomas Attending Unavailable PROBLEMS No Problem Records Found PROCEDURES No Procedure Records Found RESULTS TELEPHONE ENCOUNTER Observed: 06/23/2024 1:40 PM Status: COMPLETED Source: [facility] Referral queue updated. TELEPHONE ENCOUNTER Observed: 06/22/2024 10:11 AM Status: COMPLETED Source: [facility] Pt called in. She wanted to let the office know that her insurance is messed up and she will not be scheduling a rheum appt until this is all taken care of. The patient will call back once the insurance is fixed. Pt stated thanks for calling. TELEPHONE ENCOUNTER Observed: 06/20/2024 3:22 PM Status: COMPLETED Source: [facility] Please contact pt and iron [place] with the order in the Active Requests tab. ALLERGIES No Allergies Records Found ENCOUNTERS ADMIT/DISCHARGE ACCOUNT NUMBER ADMITTING ENCOUNTER CLASS LOCATION SOURCE 04/07/2025/04/07/20 [id number] LEOPOLDO DUMONT Ambulatory Buildin [address] [facility] 08/15/2024/08/15/20 [id number] Ambulatory PM [facility] ding:PM [facility] 07/25/2024/07/25/20 24 [id number] Ambulatory PM [facility] ding:PM [facility] PAYERS ENCOUNTER GUARANTOR PAYER SUBSCRIBER SOURCE 04/07/2025 HEATHER RIOSTDOB: [id number], [place] [address]Uir: ~(4 19 (HP) [place]: [id number] Date:2022-11-301708-28-93Wfqi Name:5 HEATHER RIOSTDOB: [id number] [place], [place] [address]Hxk: (HP) Neighborhood FP 04/07/2025 Secondary Insurance:[facility] MEDIC[facility] COMPLETE ([facility])Policy Number: [id number] Date:8769-41-22Gmwi Name:[address], [place] [address]RT: HEATHER Cantu MCNATTDOB: 3897-71-03YVWDW [address] [place] [address]Qee: (HP) Neighborhood FP 04/07/2025 Tertiary Insurance:BLAINE KAUR MEDICAIDPolicy Number: [id number] Date:2020-05-305606-62-22Abue Name:[address] [address]AV: HEATHER Cantu MCNATTDOB: [id number] [place], [place] [address]Hot: (HP) Neighborhood FP 04/07/2025 Tertiary Insurance:TRENT PERRY MEDICAREPolicy Number: [id number] Date:2019-11-302539-71-63[address] [place] [address]QX: HEATHER Cantu MCNATTDOB: [id number] [place], [place] [address]Dec: (HP) Neighborhood 04/07/2025 Tertiary Insurance[facility] MEDICAREPolicy Number: [id number] Date:2017-04-302019-109195-32-73Jzee Name:[address] [address]ZB: HEATHER L MCNATTDOB: [id number] [place], [place] [address]Pgg: (HP) Neighborhood 04/07/2025 Tertiary Insurance:MEDICAID [id number] Number: [id number] Date:2024-06-09 - [id number] Name:[address], [place] [address]GQ: HEATHER L MCNATTDOB: 2141-13-89[address], [place] [address]Klr: (HP) Neighborhood 04/07/2025 Tertiary Insuran ce:[employer] [place] Number: [id number] Date:2020-05-305052-84-54Tqdr Name:[address], [place] [address]IF: HEATHER L MCNATTDOB: [id number] [place], [place] [address]Yvb: (HP) Neighborhood 08/15/2024 Heather L McNattDOB: [address] [facility] [address] Primary Insurance:[facility] HospitalPolicy Number: Effective Date:3249-48-03Hpyd Name:COMP [address] [address], [place] [address]FR: Heather L McNattDOB: [id number] [place] [address] [facility] 07/25/2024 Heather [place] McNattDOB: [place] [address] Primary Insurance:[facility] Rehabilitation HospitalPoly Number: Effective Date:6296-61-37Ognt Name:GORDON Pagan [address] [address]DK: Heather MuseDOB: [id number] [facility] [place] [address] [facility]
--- NOTE | 2025-04-20 14:49 | MM_ITS ---
Patient Name: ANALIA MUSE MR#: [id number] : 1975 Exam Date: 04/20/2025 Ordering Doctor: LEOPOLDO WOODRUFF RADIOLOGY REPORT PROCEDURE: MM TOMOSYNTHESIS SCREENING BI COMPARISON: None. INDICATIONS: Screening Calculator Name NCI Breast Cancer Risk Assessment Tool 5 Year Breast Cancer Risk 0.70% Lifetime Breast Cancer Risk 7.30% Personal Breast Cancer No Personal Ovarian Cancer No Treatments None Family Cancers None LOCATION: [facility] BREAST COMPOSITION: There are scattered areas of fibroglandular density. FINDINGS: RIGHT BREAST: FOCAL ASYMMETRY (finding without convex borders usually visible on two orthogonal views), 8 cm from the nipple measuring 7 millimeters in greatest dimension. LEFT BREAST: No significant suspicious finding. Benign-appearing calcifications are present. Benign-appearing lymph nodes are noted along the left chest wall. DIAGNOSTIC CATEGORY 0--INCOMPLETE: NEED ADDITIONAL IMAGING EVALUATION. RECOMMENDATIONS: ADDITIONAL MAMMOGRAPHIC VIEWS REQUIRED: RIGHT BREAST - posterior depth, lateral right breast. PLEASE NOTE: A NORMAL MAMMOGRAM DOES NOT EXCLUDE THE POSSIBILITY OF BREAST CANCER. A CLINICALLY SUSPICIOUS PALPABLE LUMP SHOULD BE BIOPSIED. Dictated by: Georgi Hernandez MD on 04/20/2025 at 15:57 Approved by: Georgi Hernandez MD on 04/20/2025 at 16:08
--- NOTE | 2025-04-20 14:49 | US_ITS ---
The [address] [address] Patient Name: ANALIA MUSE MRN: [id number] date: 1975 Sex: F Assigned Patient Location: [place] Current Patient Location: Accession/Order Number: [id number] Exam Date: 04/21/2025 16:42 Report Date: 04/21/2025 16:47 At the request of: LEOPOLDO WOODRUFF NP Procedure: US thyroid US thyroid 04/20/2025 3:20 PM SIGNS AND SYMPTOMS: Thyroid Nodule COMPARISON: None. FINDINGS: Right and left thyroid lobes are normal in size and echotexture. The right thyroid lobe measures 4.0 x 1.1 x 1.9 cm and the left thyroid lobe measures 3.8 x 2.0 x 1.1 cm. The isthmus measures 0.2 cm. In the right thyroid lobe there is a hypoechoic wider than tall solid appearing 8 x 6 x 6 mm nodule with ill-defined margins lacking calcifications. This is in the interpolar region. At the superior pole on the right there is an ill-defined a wider than tall spongiform appearing slightly hypoechoic nodule with ill-defined margins measuring 1.0 x 0.7 x 0.9 cm. In the left thyroid lobe there is a peripherally calcified 7 x 7 x 7 mm round well-circumscribed solid appearing isoechoic structure. No cervical lymphadenopathy is noted. US/US thyroid IMPRESSION: TIRADS: 4 (moderately suspicious) There is a moderately suspicious peripherally calcified 7 mm nodule in the left thyroid lobe. Additional mildly suspicious nodules are noted bilaterally. Recommendation: No further ultrasound follow-up is recommended by the [employer] thyroid imaging and reporting data system. Impression dictated by: Georgi Hernandez M.D. 04/21/2025 4:47 PM [facility]ation [facility] Electronically authenticated by: [id number] Y Date: 04/21/2025 16:47
== END 2025-04-20 14:44 | disposition home or self-care (01) ==
LOC: US 14:43
PROVIDERS: PCP Nurse Practitioner Family; Visit Provider Nurse Practitioner Family
DX: E04.1 Nontoxic single thyroid nodule (principal); Z12.31 Encounter for screening mammogram for malignant neoplasm of breast; R92.8 Other abnormal and inconclusive findings on diagnostic imaging of breast
CPT/HCPCS: 76536; 77063; 77067

== ENCOUNTER 2025-08-02 10:13 | Emergency (ER) | payer MEDICARE, MEDICAID, SELFPAY ==
--- OUTSIDE RECORDS SUMMARY | 2024-07-01 09:40 | XMS_ITS ---
Author Organization [facility] Address [address] [place] [address] Care Team Providers Care Size Changer Name Role Phone Amarilys Alvarez Unavailable [phone] REASON FOR VISIT LUMBAR PAIN Encounters Encounter Location Date Provider Diagnosis [facility] [address] [place] [address] [place] [address] 07/01/2024 Amarilys Alvarez Plan Of Treatment No Information Progress Notes * ANALIA MUSE LDOB:[birth year] (50 yo F)Acc No.[id number]:07/01/2024 Patient: ANALIA GALAN Provider: Halie Parrish MD, PhD :1975 A ge:49 Y S ex:Female Date:07/01/2024 Address[address] Subjective: * Chief Complaints: * 1 . LUMBAR PAIN. * Medical History: Objective: * Vitals: Assessment: Plan: * Treatment: Forms: * Images: * Electronic signature of Joey Alvarez MD, PHD on 08/02/2025 at 10:37 AM EDT Sign off status: Pending * Provider: Halie Parrish MD, PhD Date: 07/01/2024 Generated for Zach self/Levar/eTalconsmitting on: 08/02/2025 10:37 AM EDT
--- OUTSIDE RECORDS SUMMARY | 2025-07-19 13:45 | XMS_ITS | Encounter Summary ---
Author Organization [facility] Address [address] [place] [address] Care Team Providers Care Cp Bleacher Operator Name Role Phone Elsy Woods MD Primary Care Provider [phone] Encounter Details Date Type Department Care Team (Latest Contact Info) Description 07/19/2025 1:45 PM EDT Clinical Support [facility] [address] [place] [id number] Sheridan Santana, MARYBETH-A [address] [facility] [place] [address] Sensorineural hearing loss (SNHL) 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 (Primary Dx); Pulsatile tinnitus of both ears; Plugged feeling in ear, bilateral Social History Tobacco Use Types Packs/Day Years Used Date Smoking Tobacco: Former Cigarettes Smokeless Tobacco: Never Alcohol Use Standard Drinks/Week Comments Yes 0 (1 standard drink = 0.6 oz pur e alcohol) Occ Comments Unknown Sex and Gender Information Value Date Recorded Sex Assigned at Not on file Legal Sex Female 6:59 PM EDT Gender Identity Not on file Sexual Orientation Not on file documented as of this encounter Progress Notes * FLACO Sebastian - 07/19/2025 1:45 PM EDT History: Pt has history of ear problems, onset years ago. Pt had difficulty hearing, periodically heard her pulse in her ears, and ears felt clogged. In November pt used a rupert pin and removed a big gob of wax from the right ear. Pt's ear feels much better after she removed the wax. Pt's ears are sensitive to wind (warm or cold weather.) Her hearing still seems decreased and she still hears her pulse in her ears. History is positive for noise exposure. Otoscopic Exam: Ear canal clear and TM intact AU Pure Tone Audiometry Right Ear: Normal hearing Left Ear: Mild sensorineural hearing loss at 8K Hz only Speech Audiometry Right SRT = 20 dB and word discrimination score at 50 dBHL = 100% Left SRT = 30 dB and word discrimination score at 50 dBHL = 100% Tympanometry Right Ear: Type A tympanogram Left Ear: Type A tympanogram documented in this encounter Plan of Treatment Upcoming Encounters Date Type Department Care Team (Late st Contact Info) Description 11/15/2025 1:00 PM EST Office Visit [facility] [address] [facility] [address] [place] [address] Kayy Bartlett MD [address] [facility] [address] [place] [address] documented as of this encounter Procedures Procedure Name Priority Date/Time Associated Diagnosis Comments AUDITORY FUNCTION TESTS Routine 07/19/2025 2:16 PM EDT documented in this encounter Results * Auditory function tests (07/19/2025 2:16 PM EDT) Narrative Sheridan Santana CCC-A - 07/19/2025 2:16 PM EDT Right Ear: Normal hearing Left Ear: Mild sensorineural hearing loss at 8K Hz only us Sheridan [facility] ORDERA BLES Final Result documented in this encounter Visit Diagnoses Diagnosis Sensorineural hearing loss (SNHL) 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- Primary Pulsatile tinnitus of both ears Plugged feeling in ear, bilateral documented in this encounter Care Teams Cp Bleacher Operator Relationship Specialty Start Date End Date Elsy Woods MD [address] [place] [address] PCP - General Family Medicine 02/17/24 documented as of this encounter
--- OUTSIDE RECORDS SUMMARY | 2025-07-26 09:10 | XMS_ITS | Encounter Summary ---
Author Organization [facility] Address [address] [place] [address] Care Team Providers Care Chief Guard Name Role Phone Elsy Woods MD Primary Care Provider [phone] Reason for Visit * Reason Comments Hearing Loss Follow up audio 07/19 Encounter Details Date Type Department Care Team (Late st Contact Info) Description 07/26/2025 9:10 AM EDT Office Visit [facility] [address] [facility] [address] [place] [id number] Kayy Bartlett MD 112 [facility] [address] [place] [address] Multinodular goiter (nontoxic) (Primary Dx); Gastroesophageal reflux disease, unspecified whether esophagitis present; 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 Social History Tobacco Use Types Packs/Day Years [...] on file documented as of this encounter Last Filed Vital Signs Vital Sign Reading Time Taken Comments Blood Pressure 116/86 07/26/2025 9:13 AM EDT Pulse 76 07/26/2025 9:13 AM EDT Temperature - - Respiratory Rate - - Oxygen Saturation - - Inhaled Oxygen Concentration - - Weight 78.5 kg (173 lb) 07/26/2025 9:13 AM EDT Height 165.1 cm (5' 5 ) 07/26/2025 9:13 AM EDT Body Mass Index 28.79 07/26/2025 9:13 AM EDT documented in this encounter Progress Notes * Kayy Bartlett MD - 07/26/2025 9:10 AM EDT Subjective Patient ID: Heather Piña is a 50 y.o. female who presents for Hearing Loss (Follow up audio 07/19/25) Reflux sx improved, but only taking famotidine when takes ibuprofen. Audio normal. C/I itching earssince having audio. Family History Problem Relation Name Age of Onset Hypertension Mother Diabetes Mother Heart failure Mother Hyperlipidemia Father Hypertension Father Diabetes Father Active Ambulatory Problems Diagnosis Date Noted Age-related osteoporosis without current pathological fracture 04/26/2024 Anxiety with somatization 12/03/2020 Bereavement 08/26/2021 Chronic non-seasonal allergic rhinitis 12/23/2017 Depression 12/28/2015 Generalized anxiety disorder with panic attacks 12/03/2020 Hepatic steatosis 02/07/2016 Herniated lumbar intervertebral disc 09/29/2018 Gastroesophageal reflux disease 01/10/2016 History of thyroid nodule 03/22/2016 Hx of bilateral oophorectomy 11/30/2001 Immunosuppression due to drug therapy (HCC) 09/01/2020 Irritable bowel syndrome with constipation 12/22/2016 Kyphoscoliosis 10/08/2021 Legally blind in left eye, as defined in [place] 04/19/1978 Moderate persistent asthma without complication (HCC) 08/16/2018 Multinodular goiter (nontoxic) 01/19/2021 GARY (obstructive sleep apnea) 07/15/2017 Other hyperlipidemia 08/17/2018 Panic attack 09/01/2020 Psoriasis 11/19/2016 Thyroid nodule 04/07/2025 Tobacco dependence 08/16/2018 Degeneration of intervertebral disc of lumbosacral region 05/17/2025 HNP (herniated nucleus pulposus), lumbar 05/17/2025 Lumbar radiculopathy 05/17/2025 Neuroforaminal stenosis of lumbar spine 05/17/2025 Adenoid hypertrophy 11/19/2017 Cervical radicular pain 05/13/2018 Chest pain 06/24/2017 Chronic pain syndrome 05/13/2018 Deviated nasal septum 11/19/2017 Herniated disc, cervical 10/07/2019 Hypertrophy of nasal turbinates 11/19/2017 Inadequate sleep hygiene 08/06/2017 Indigestion 02/07/2016 Myelopathy (HCC) 09/09/2018 Nose abnormality 08/06/2017 Therapy 06/29/2018 Resolved Ambulatory Problems Diagnosis Date Noted No Resolved Ambulatory Problems Past Medical History: Diagnosis Date Anxiety Asthma (HCC) Newsome's palsy GERD (gastroesophageal reflux disease) Hypertension Thyroid disorder Past Surgical History: Procedure Laterality Date ANKLE ARTHROSCOPY W/ OPEN REPAIR Right APPENDECTOMY EYE SURGERY Left HEEL SPUR SURGERY Left HYSTERECTOMY TUBAL LIGATION Allergies Allergen Reactions Ketorolac Morphine Penicillins Ultram [Tramadol] Current Outpatient Medications on File Prior to Visit Medication Sig Dispense Refill albuterol HFA 90 mcg/act inhaler Inhale 2 puffs every 4 (four) hours if needed for wheezing atorvastatin (Lipitor) 20 MG tablet Take 20 mg by mouth Daily cholecalciferol (Vitamin D-3) 1.25 MG (35006 UT) capsule Take 50,000 Units by mouth 1 (one) time per week cyclobenzaprine (Flexeril) 10 MG tablet Take 10 mg by mouth in the morning and 10 mg before bedtime. DULoxetine (Cymbalta) [address] capsule Take 30 mg by mouth Daily Do not crush or chew. famotidine (Pepcid) 40 MG tablet Take 40 mg by mouth Daily fluticasone (Flonase) 50 MCG/ACT nasal spray Administer 1 spray into each nostril Daily Shake gently. Before first use, prime pump. After use, clean tip and replace cap. guaiFENesin (Mucinex) 600 MG 12 hr tablet Take 600 mg by mouth in the morning and 600 mg before bedtime. Every 12 hrs. hydroCHLOROthiazide (HYDRODiuril) 25 MG tablet Take 25 mg by mouth in the morning. hydrOXYzine HCl (Atarax) 25 MG tablet TAKE 1 TABLET BY MOUTH ONCE DAILY AT NIGHT NEEDED FOR ITCHING ibuprofen 800 MG tablet Take 800 mg by mouth 3 (three) times a day as needed lamoTRIgine (LaMICtal) 100 MG tablet Take 25 mg by mouth Daily linaCLOtide (Linzess) 145 MCG capsule Take 145 mcg by mouth in the morning. Take before meals. Do not crush or chew. omeprazole (PriLOSEC) [address] capsule Take 40 mg by mouth in the morning. Take before meals. Do not crush or chew. ondansetron (Zofran) 4 MG tablet Take 4 mg by mouth every 8 (eight) hours if needed for nausea sucralfate (Carafate) 1 GM/10ML suspension Take 1 g by mouth in the morning and 1 g in the evening.Take with meals. No current facility-administered medications on file prior to visit. Objective Last Recorded Vitals Vitals: 07/26/25 0913 BP: 116/86 Pulse: 76 ENT Physical Exam Ear Hearing: intact; Auricles: right auricle normal; left auricle normal; External Mastoids: right external mastoid normal; left external mastoid normal; Ear Canals: right ear canal normal; left ear canal normal; Tympanic Membranes: right tympanic membrane normal; left tympanic membrane normal; Assessment/Plan Diagnoses and all orders for this visit: Multinodular goiter (nontoxic) Gastroesophageal reflux disease, unspecified whether esophagitis present 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 Pt reassured hearing is good. Dermotic for OE F/U as planned with thyroid US documented in this encounter Plan of Treatment Upcoming Encounters Date Type Department Care Team (Late st Contact Info) Description 11/15/2025 1:00 PM EST Office Visit [facility] [address] [place] [address] Kayy Bartlett MD 112 [facility] [address] [place] [address] documented as of this encounter Visit Diagnoses Diagnosis Multinodular goiter (nontoxic)- Primary Nontoxic multinodular goiter Gastroesophageal reflux disease, unspecified whether esophagitis present 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 documented in this encounter Care Teams Chief Guard Relationship Specialty Start Date End Date Elsy Woods MD [address] [place] [address] PCP - General Family Medicine 02/17/24 documented as of this encounter
[2025-08-02 10:19] VITALS: BP 108/90; PULSE 93; O2SAT 97; BMI 28.0
--- NOTE | 2025-08-02 10:28 | XR_ITS ---
[facility] [place] [id number] Patient Name: ANALIA MUSE MRN: [id number] date: 1975 Sex: F Assigned Patient Location: ER Current Patient Location: ED.MAIN Accession/Order Number: [id number] Exam Date: 08/02/2025 10:33 Report Date: 08/02/2025 10:49 At the request of: DEQUAN STONE DO Procedure: XR elbow RT min 3V RIGHT ELBOW - 3 VIEWS CLINICAL HISTORY: lateral elbow pain for the past 2 weeks. No injury. COMPARISON: None AP, lateral and oblique views were obtained. There is no evidence of fracture or dislocation. There are no significant soft tissue abnormalities. There is no elbow effusion. XR/XR elbow RT min 3V IMPRESSION: NO ACUTE BONY FINDINGS. Impression dictated by: Katie Romero M.D. 08/02/2025 10:49 AM Dictation Location: [place] [address] Electronically authenticated by: [id number] Y Date: 08/02/2025 10:49
[2025-08-02 10:29] VITALS: TEMP 36.7
--- OUTSIDE RECORDS SUMMARY | 2025-08-02 10:38 | XMS_ITS | Encounter Summary ---
Author Organization [facility] Address [address] [place] [address] Care Team Providers Care Plant Maintenance Manager Name Role Phone Antwan Woodruff MD Unavailable Don Moya MD Unavailable [phone] Nathaniel Ovalle MD Unavailable [phone] Lianne Mayo DO Unavailable [phone] Karlee Sanchez MD Unavailable [phone] Regina Bright MD Unavailable [phone] Elsy Woods APRN-ENGINEERING INSTRUCTOR Primary Care Provider [phone] Mason Walls MD Unavailable [phone] Shira Grady DO Unavailable [phone] Mack Vega MD Unavailable Encounter Details Date Type Department Care Team (Late st Contact Info) Description 04/06/[address] [facility] [address] [place] [address] Elsy Woods APRN-CNP [address] [place] [address] Social History Tobacco Use Types Packs/Day Years Used Date Smoking Tobacco: Former Cigarettes 0.3 34 Smokeless Tobacco: Never Alcohol Use Standard Drinks/Week Comments Yes 0 (1 standard drink = 0.6 oz pur e alcohol) socially Humiliation, Afraid, Rape, and Kick questionnair e Answer Date Recorded Within the last year, have y ou been afraid of your partner or ex-partner? No 09/22/2022 Within the last year, have y ou been humiliated or emotionally abused in other ways by your partner or ex-partner? No Within the last year, have y ou been kicked, hit, slapped, or otherwise physically hurt by your partner or ex-partner? No 09/22/2022 Within the last year, have y ou been raped or forced to have any kind of sexual activity by your partner or ex-partner? No 09/22/2022 Social Connection and Isolat ion Panel [NHANES] Answer Date Recorded In a typical week, how many times do you talk on the phone with family, friends, or neighbors? More than three times a week 09/22/2022 How often do you get togethe r with friends or relatives? More than three times a week 09/22/2022 How often do you attend chur ch or scientology services? Never 09/22/2022 Do you belong to any clubs o r organizations such as judaism groups, unions, fraternal or athletic groups, or school groups? No 09/22/2022 How often do you attend meet ings of the clubs or organizations you belong to? Never 09/22/2022 Are you , , di vorced, , never , or living with a partner? 09/22/2022 Overall Financial Resource Strain (CARDIA) Answe r Date Recorded How hard is it for you to pa y for the very basics like food, housing, medical care, and heating? Somewhat hard 09/22/2022 [facility] [place] [facility] Occupat ional Health - Occupational Stress Questionnaire Answer Date Recorded Do you feel stress - tense, restless, nervous, or anxious, or unable to sleep at night because your mind is troubled all the time - these days? To some extent 09/22/2022 Exercise Vital Sign Answer Date Recorde d On average, how many days pe r week do you engage in moderate to strenuous exercise (like a brisk walk)? 1 day 09/22/2022 On average, how many minutes do you engage in exercise at this level? 30 min 09/22/2022 Hunger Vital Sign Answer Date Recorded Within the past 12 months, y ou worried that your food would run out before you got the money to buy more. Never true 09/22/20 22 Within the past 12 months, t he food you bought just didn't last and you didn't have money to get more. Never true 09/22/2022 PRAPARE - Transportation Answer Date Re corded In the past 12 months, has l ack of transportation kept you from medical appointments or from getting medications? No 08/31 In the past 12 months, has l ack of transportation kept you from meetings, work, or from getting things needed for daily living? No 09/22/2022 Housing Stability Vital Sign Answer Boo e Recorded In the last 12 months, was t here a time when you were not able to pay the mortgage or rent on time? No 09/22/2022 In the last 12 months, how many places have you lived? 1 09/22/2022 In the last 12 months, was t here a time when you did not have a steady place to sleep or slept in a skilled nursing (including now)? No 09/22/2022 Education Answer Date Recorded What is the highest level of school you have completed or the highest degree you have received? 11th grade 09/22/2022 Sexually Active Control Partners Comments Yes Male Substance Use Types Use/Week Comments No Comments No Sex and Gender Information Value Date Recorded Sex Assigned at Female 05/20/2021 2:51 PM EDT Legal Sex Female 3:00 PM EST Gender Identity Female 05/20/2021 2:51 PM EDT Sexual Orientation Straight 05/20/2021 2: 51 PM EDT documented as of this encounter Functional Status * Hearing impairment? Answer Date of Assessment Author No 01/08/2018 4:38 PM Alexandria Urena APRN-CNP * Visual impairment? Answer Date of Assessment Author No 01/08/2018 4:38 PM Alexandria Urena APRN-CNP * Gait/Transfer impairment? Answer Date of Assessment Author No 01/08/2018 4:38 PM Alexandria Urena APRN-CNP * ADL impairment? Answer Date of Assessment Author No 01/08/2018 4:38 PM Alexandria Urena APRN-CNP * Difficulty with errands? Answer Date of Assessment Author No 01/08/2018 4:38 PM Alexandria Urena APRN-CNP documented as of this encounter Mental Status * Cognitive difficulty? Answer Entry Date Author No 01/08/2018 4:38 PM Alexandria Urena APRN-CNP documented in this encounter Plan of Treatment Not on file documented as of this encounter Visit Diagnoses Diagnosis Chronic right-sided low back pain with right-sided sciatica- Primary documented in this encounter Care Teams Plant Maintenance Manager Relationship Specialty Start Date End Date Elsy Woods APRN-CNP [address] [place] [address] PCP - General Family Medicine 11/12/22 Antwan Woodruff MD [address] [place] [address] Fellow Gastroenterology 04/22/17 Don Moya MD [address] [place] [address] Physician Orthopaedic Surgery 09/04/20 Nathaniel Ovalle MD [address] [place] [address] Physician Pain Management 09/04/20 Lianne Mayo DO [address] [place] [address] [place] [address] Resident Dermatology 09/04/20 Karlee Sanchez MD [address] [place] [address] [place] [address] Physician Dermatology 05/31/22 Regina Bright MD [address] [place], [place] [address] Physician Dermatology 08/02/22 Mason Walls MD [address] [place] [address] Fellow Gastroenterology 01/03/23 Shira Grady DO [address] [place] [address] Physician Dermatology 08/01/23 Mack Vega MD [address] [place] [address] Fellow Gastroenterology 09/05/23 documented as of this encounter
--- OUTSIDE RECORDS SUMMARY | 2025-08-02 10:38 | XMS_ITS | Encounter Summary ---
Author Organization [facility] Address [address] [place] [address] Care Team Providers Care Traffic Manager Name Role Phone Antwan Woodruff MD Unavailable Don Moya MD Unavailable [phone] Nathaniel Ovalle MD Unavailable [phone] Lianne Mayo DO Unavailable [phone] Karlee Sanchez MD Unavailable [phone] Regina Bright MD Unavailable [phone] Elsy Woods APRN-HAND ZIPPER TRIMMER Primary Care Provider [phone] Mason Walls MD Unavailable [phone] Shira Grady DO Unavailable [phone] Mack Vega MD Unavailable Encounter Details Date Type Department Care Team (Late st Contact Info) Description 03/09/2024 Community Orders [facility] Community Practice [address] [place] [address] Elsy Woods APRN-CNP [address] [place] [address] Social History Tobacco Use Types Packs/Day Years [...] often do you attend chur ch or baptist services? Never 09/22/2022 Do you belong to any clubs o r organizations such as sabianism groups, unions, fraternal or athletic groups, or [...] medical care, and heating? Somewhat hard 09/22/2022 [facility] [place] of Occupat ional Health - Occupational Stress [...] place to sleep or slept in a correction (including now)? No 09/22/2022 Education Answer Date [...] as of this encounter Visit Diagnoses Diagnosis Herniated lumbar intervertebral disc- Primary Displacement of lumbar intervertebral disc without myelopathy documented in this encounter Care Teams Traffic Manager Relationship Specialty Start Date End Date Elsy Woods APRN-CNP [address] [place] [address] PCP - General Family Medicine 11/12/22 Antwan Woodruff MD [address] [place] [address] Fellow Gastroenterology 04/22/17 Don Moya MD [address] [place] [address] Physician Orthopaedic Surgery 09/04/20 Nathaniel Ovalle MD [address] [place] [address] Physician Pain Management 09/04/20 Lianne Mayo DO [address] [place] [address] [place] [address] Resident Dermatology 09/04/20 Karlee Sanchez MD [address] [place] [address] [place] [address] Physician Dermatology 05/31/22 Regina Bright MD [address] [place], [place] [address] Physician Dermatology 08/02/22 Mason Walls MD [address] [place] [address] Fellow Gastroenterology 01/03/23 Shira Grady DO [address] [place] [address] Physician Dermatology 08/01/23 Mack Vega MD [address] [place] [address] Fellow Gastroenterology 09/05/23 documented as of this encounter
--- OUTSIDE RECORDS SUMMARY | 2025-08-02 10:38 | XMS_ITS | Encounter Summary ---
Author Organization [facility] Address [address] [facility] [place] [address] Care Team Providers Care Spiral Winding Machine Helper Name Role Phone Antwan Woodruff MD Unavailable Radha Negrete MD Primary Care Provider [phone] Don Moya MD Unavailable [phone] Nathaniel Ovalle MD Unavailable [phone] Lianne Mayo DO Unavailable [phone] Karlee Sanchez MD Unavailable Regina Bright MD Unavailable [phone] Elsy Woods JAIL GUARD-[facility] Primary Care Provider + [phone] Mason Walls MD Unavailable [phone] [facility] Unavailable Ronit Zapata CPhT Unavailable Unavailable Maya Howard Unavailable Unavailable Stashantell Joseph RPh Unavailable Unavailable Ronit Zapata CPhT Unavailable Unavailable Maya Howard Unavailable Unavailable Shira Grady DO Unavailable [phone] Mack Vega MD Unavailable Reason for Referral * Provider Visit (Routine) - Closed Specialty Diagnoses / Procedures Referred By Contac t Referred To Contact Pulmonary Medicine Diagnoses GARY (obstructive sleep apnea) Procedures LEVEL 3 EXPANDED, ESTABLISHED Urvashi Hale MD [address] [address] Phone: tel: fax: [facility] [address] [place] [address] Phone: tel: Referral ID Status Reason Start Date Expiration Date V isits Requested Visits Authorized [id number] Closed Consultation -[facility] 07/17/2017 01/13/2018 3 3 Scheduling Instructions If a visit was not scheduled for you today, please call [phone] to schedule an appointment with a provider specializing in sleep apnea. Comments Pt requests Inspire procedure REFERRAL TO CARDIOTHORACIC SURGERY * Provider Visit (Routine) - Closed Specialty Diagnoses / Procedures Referred By Contac t Referred To Contact General Surgery Diagnoses GARY (obstructive sleep apnea) Urvashi Hale MD [address] [place] [id number] Phone: tel: fax: [facility] GENERAL [address] [place] [address] Phone: tel: Referral ID Status Reason Start Date Expiration Date Visits Re quested Visits Authorized [id number] Closed 07/17/2017 01/13/2018 3 3 Scheduling Instructions Please call the Surgery Clinic at to schedule an appointment if one was not made for you today. Question Answer Reason for evaluation: Other - Pt requests Inspire procedure Comments Pt requests Inspire procedure CARDIOTHORACIC SURGERY Encounter Details Date Type Department Care Team (Late st Contact Info) Description 07/17/2017 Community Orders [facility] Community Practice [address] [place] [address] Urvashi Hale MD [address] [place] [id number] Social History Tobacco Use Types Packs/Day Years Used Date Smoking Tobacco: Every Day Cigarettes 1 34 Comments No Sex and Gender Information Value Date Recorded Sex Assigned at Female 05/20/2021 2:51 PM EDT Legal Sex Female 3:00 PM EST Gender Identity Female 05/20/2021 2:51 PM EDT Sexual Orientation Straight 05/20/2021 2: 51 PM EDT documented as of this encounter Plan of Treatment Scheduled Referrals Name Type Priority Associated Diagnoses Orde r Schedule GENERAL SURGERY SERVICE REQUEST Referral Routine GARY (obstructive sleep apnea) Ordered: 07/17/2017 SLEEP APNEA (GARY) SERVICE REQUEST Referral Routine GRAY (obstructive sleep apnea) Ordered: 07/17/2017 documented as of this encounter Visit Diagnoses Diagnosis GARY (obstructive sleep apnea)- Primary Obstructive sleep apnea (adult) (pediatric) documented in this encounter Care Teams Spiral Winding Machine Helper Relationship Specialty Start Date End Date Radha Negrete MD [address] [place], [place] [phone] PCP - General Pediatrics 12/08/17 11/11/22 Elsy Woods, JAIL GUARD-[employer] [address] [place], [place] [id number] PCP - General Family Medicine 11/12/22 Antwan Woodruff MD [address] [place], [place] [address] Fellow Gastroenterology 04/22/17 Don Moya MD [address] [place], [place] [address] Physician Orthopaedic Surgery 09/04/20 Nathaniel Ovalle MD [address] [place] [address] Physician Pain Management 09/04/20 Lianne Mayo DO [address] [place] [address] [place] [address] Resident Dermatology 09/04/20 Karlee Sanchez MD [address] [place] [address] [address] [place] [id number] Physician Dermatology 05/31/22 Regina Bright MD [address] [place] [address] Physician Dermatology 08/02/22 Mason Walls MD [address] [place] [address] Fellow Gastroenterology 01/03/23 Joseph Alfredo [address] [address] Pharmacist 03/06/23 05/12/23 Ronit Zapata, [facility] Tech Pharmacology and Toxicology 03/06/23 05/12/23 Maya Howard [address] [place] [address] [place] [address] Medication Decision Unit Rn Pharmacology and Toxicology 03/06/23 05/12/23 Joseph Alfredo [place] [id number] Pharmacist 07/22/23 08/28/23 Ronit Zapata, [facility] Tech Pharmacology and Toxicology 07/22/23 08/28/23 Maya Howard [address] [place] [address] [address] [place] [phone] Medication Decision Unit Rn Pharmacology and Toxicology 07/22/23 08/28/23 Shira Grady DO [address] [place] [address] [place] [address] Physician Dermatology 08/01/23 Mack Vega MD [address] [place], [place] [address] Fellow Gastroenterology 09/05/23 documented as of this encounter
--- OUTSIDE RECORDS SUMMARY | 2025-08-02 10:38 | XMS_ITS | Encounter Summary ---
Author Organization [facility] Address [address] [facility] [place] [address] Care Team Providers Care Online Media Director Name Role Phone nAtwan Woodruff MD Unavailable Radha Negrete MD Primary Care Provider [phone] Don Moya MD Unavailable [phone] Nathaniel Ovalle MD Unavailable [phone] Lianne Mayo DO Unavailable [phone] Karlee Sanchez MD Unavailable [phone] Regina Bright MD Unavailable [phone] Elsy Woods COLLEGE ARCHIVIST[facility] Primary Care Provider + [phone] Mason Walls MD Unavailable +[phone] Juni Joseph RP Unavailable Unavailable Ronit Zapata CPhT Unavailable Unavailable Maya Howard Unavailable Unavailable Stashantell Joseph RPh Unavailable Unavailable Ronit Zapata CPhT Unavailable Unavailable Maya Howard Unavailable Unavailable Shira Grady DO Unavailable [phone] Mack Vega MD Unavailable Reason for Referral * Provider Visit (Routine) - Closed Specialty Diagnoses / Procedures Referred By Contac t Referred To Contact Gastroenterology Diagnoses Rectal bleeding Urvashi Hale MD [address] [facility] [place] [address] Phone: tel: fax: S GASTROENTEROLOGY [address] [place] [address] Phone: tel: Referral ID Status Reason Start Date Expiration Date Visits Re quested Visits Authorized [id number] Closed 08/19/2016 02/15/2017 3 3 Scheduling Instructions Please call the Gastroenterology Clinic at to schedule an appointment if one was not made for you today. Question Answer Which GI clinic should the patient be scheduled in? General GI Clinic Comments No prior visits in Gastroenterology Possible anal fissure Encounter Details Date Type Department Care Team (Late st Contact Info) Description 08/19/2016 Community Orders [address] [address] Urvashi Hale MD [address] [place], [place] [id number] Social History Tobacco Use Types Packs/Day Years [...] Type Priority Associated Diagnoses Orde r Schedule GASTROENTEROLOGY SERVICE REQUEST Referral Routine Rectal bleeding Ordered: 08/19/2016 documented as of this encounter Visit Diagnoses Diagnosis Rectal bleeding- Primary Hemorrhage of rectum and anus documented in this encounter Care Teams Online Media Director Relationship Specialty Start Date End Date Radha Negrete MD [address] [place], [place] [phone] PCP - General Pediatrics 12/08/17 11/11/22 Elsy Woods APRN-WIRE INSULATOR [address] [place], [place] [id number] PCP - General Family Medicine 11/12/22 Antwan Woodruff MD [address] [place] [address] Fellow Gastroenterology 04/22/17 Don Moya MD [address] [place] [address] Physician Orthopaedic Surgery 09/04/20 Nathaniel Ovalle MD [address] [place] [address] Physician Pain Management 09/04/20 Lianne Mayo DO [address] [place] [address] [place] [address] Resident Dermatology 09/04/20 Karlee Sanchez MD [address] [place] [address] [address] [place] [id number] Physician Dermatology 05/31/22 Regina Bright MD [address] [place], [place] [phone] Physician Dermatology 08/02/22 Mason Walls MD [address] [place] [address] Fellow Gastroenterology 01/03/23 Joseph Alfredo [address] [address] Pharmacist 03/06/23 05/12/23 Ronit Zapata [facility] Pharmacology and Toxicology 03/06/23 05/12/23 Maya Howard [address] [place] [address] [place] [address] Medication Bad Cloth Checker Pharmacology and Toxicology 03/06/23 05/12/23 Joseph Alfredo [address] [address] Pharmacist 07/22/23 08/28/23 Ronit Zapata CPhT Tech Pharmacology and Toxicology 07/22/23 08/28/23 Maya Howard [address] [facility] [place] [address] Medication Bad Cloth Checker Pharmacology and Toxicology 07/22/23 08/28/23 Shira Grady DO [address] [place] [address] [place] [address] Physician Dermatology 08/01/23 Mack Vega MD [address] [place] [address] Fellow Gastroenterology 09/05/23 documented as of this encounter
--- OUTSIDE RECORDS SUMMARY | 2025-08-02 10:38 | XMS_ITS | Encounter Summary ---
Author Organization [facility] Address [address] [place] [address] Care Team Providers Care Fast Food Server Name Role Phone Elsy Woods MD Primary Care Provider [phone] Encounter Details Date Type Department Care Team (Late Contact Info) Description 05/17/2025 Orders Only [facility] Otolaryngology [address] [place] [address] Unallocated, [facility] MD Scott [address] [place], [place] [phone] Social History Tobacco Use Types Packs/Day Years [...] on file documented as of this encounter Plan of Treatment Upcoming Encounters Date Type Department Care Team (Late st Contact Info) Description 11/15/2025 1:00 PM EST Office Visit [facility] [place] [facility] [address] [facility] [address] [place], [place] [address] Kayy Bartlett MD [address] [facility] [address] [place], [place] [phone] documented as of this encounter Procedures Procedure Name Priority Date/Time Associated Diagnosis Comments US THYROID Routine 04/20/2025 11:22 AM EDT documented in this encounter Results * US thyroid (04/20/2025 11:22 AM EDT) Anatomical Region Laterality Modality Head, Neck Ultrasound us [facility] Provider Unallocated MD MERCER US PROCEDURES F inal Result documented in this encounter Visit Diagnoses Not on filedocumented in this encounter Care Teams Fast Food Server Relationship Specialty Start Date End Date Elsy Woods MD [address] [place] [address] PCP - General Family Medicine 02/17/24 documented as of this encounter
--- OUTSIDE RECORDS SUMMARY | 2025-08-02 10:38 | XMS_ITS | Clinical Summary ---
Author Organization [facility] Address [address] [facility] [place] [address] Care Team Providers Care Land Inspector Name Role Phone Antwan Woodruff MD Unavailable Don Moya MD Unavailable [phone] Nathaniel Ovalle MD Unavailable [phone] Lianne Mayo DO Unavailable [phone] Karlee Sanchez MD Unavailable Regina Bright MD Unavailable [phone] Elsy Woods CHLORINE CELL TENDER-INFORMATION SECURITY OFFICER Primary Care Provider + [phone] Mason Walls MD Unavailable [phone] Shira Grady DO Unavailable [phone] Mack Vega MD Unavailable Source Comments The following information is NOT included in Care Everywhere downloads:Psychiatric notes, ECG results, Cardiac Rehab notes, Pulmonary Function notes, data from [facility] (includes but not limited toPregnancy data,audiograms, eye exams, pre-surgical evaluation notes, well-child exam data).[facility] Allergies Active Allergy Reactions Criticality Noted Date Comments Morphine Confusion 05/05/2016 Naproxen Upset Stomach 09/02/2018 Penicillins Rash 05/05/2016 Ketorolac Tromethamine Vomiting 05/05/2016 Tramadol Upset Stomach 12/19/2016 Medications lamotrigine (LAMICTAL) 100 MG tablet Take 100 mg by mouth daily. Active atorvastatin (LIPITOR) 20 MG tablet Take 20 mg by mouth daily. Active albuterol (PROVENTIL HFA) inhaler 90 mcg/inh Inhale 2 Puffs. 6 Active fluticasone (FLOVENT HFA) 110 MCG/ACT inhaler Inhale 2 Puffs. 6 Active Linaclotide 145 MCG CAPS capsuleIndication s:Chronic idiopathic constipation Take 1 Capsule by mouth daily. 30 Capsule 3 7 Active sodium chloride (OCEAN NASAL SPRAY) 0.65 % nasal sprayIndications: Deviated nasal septum Instill 4 Sprays into each nostril 4 times daily. 2 Bottle 3 8 Active omeprazole (PRILOSEC) 40 MG capsule Take 1 Capsule by mouth daily. 60 Capsule 3 8 Active eucerin (DERMACERIN) cream Apply topically as needed. Apply thin layer to affected area. 1 Tube 1 9 Active triamcinolone 0.1 % cream Apply topically 2 times daily. Apply thin layer to affected area. 30 g 9 Active naloxone 4 MG/0.1ML LIQD nasal liquidIndications :Opioid Overdose Instill 0.1 mL into one nostril (alternate sides) as needed for Other (Drug overdose, give and call 911) for up to 1 dose Indications: Opioid Overdose. 1 Each 1 9 Active calcipotriene (DOVONOX) 0.005 % ointmentIndicatio ns:Psoriasis Apply topically 2 times daily. Apply thin layer to affected area. 60 g 3 2 Active Adalimumab (Humira Pen) 40 MG/0.4ML PNKT Inject 40 mg under the skin every 14 days. 2 Each 3 04/13/2023 9:02 AM EDT 3 Active Tapinarof 1 % CREAIndications:P soriasis Apply 2 g externally daily. 60 g 1 3 Active clobetasol (TEMOVATE) 0.05 % creamIndications: Psoriasis Apply topically 2 times daily to rash on hands and feet 60 g 3 12/05/2023 10:40 AM EST 3 Active tizanidine (ZANAFLEX) 4 MG tablet Take 1 Tablet by mouth every 6 hours as needed. 2 Active ibuprofen (MOTRIN) 600 MG tablet Take 600 mg by mouth. 3 Active duloxetine (CYMBALTA) 30 MG capsule Take 1 Capsule by mouth daily. 3 Active Active Problems Problem Noted Date Diagnosed Date Herniated disc, cervical 10/07/2019 Lumbar radiculopathy 07/21/2019 Overview (07/21/2019): Added automatically from request for surgery [id number] Herniated lumbar intervertebral disc 09/29/2018 Lumbar spondylosis 09/29/2018 Cervical radiculopathy at C5 09/09/2018 Myelopathy 09/09/2018 Therapy 06/29/2018 Lumbosacral radiculopathy 05/13/2018 Overview (05/13/2018): Right S1 Chronic pain syndrome 05/13/2018 Cervical radicular pain 05/13/2018 Lumbar radicular pain 05/13/2018 Adenoid hypertrophy 11/19/2017 Hypertrophy of nasal turbinates 11/19/2017 Deviated nasal septum 11/19/2017 GARY (obstructive sleep apnea) 08/06/2017 Inadequate sleep hygiene 08/06/2017 Nose abnormality 08/06/2017 Chest pain 06/24/2017 Irritable bowel syndrome with constipation 12/22 Psoriasis 11/19/2016 History of thyroid disease 03/22/2016 Indigestion 02/07/2016 Fatty liver 02/07/2016 Gastroesophageal reflux disease 01/10/2016 Depression 12/28/2015 Immunizations Immunization Administration Dates Next Due Influenza, Injectable, MDCK, Quadrivalent, Preservative Free (TJP=211) 10/14/2023,09/12/2022 Influenza, injectable, quadr ivalent, preservative free (XTG=233) 11/06/2021,08/31/2020,09/21/2019,08/16,12/23/2017,08/18/2016 Moderna Monovalent (12+ yrs) COVID-19 vaccine, mRNA, spike protein, LNP, PF, 100 mcg/0.5 mL (XAG=061) 08/28/2021,03/27/2021,02/27/2021 Pneumococcal conjugate 13 va lent (PCV13) (WMC=331) 09/21/2019 Pneumococcal polysaccharide 23 Valent (PPSV23) (CVX=33) 11/06/2021,01/10/2016 Tdap (XPC=165) 01/10/2016 Social History Tobacco Use Types Packs/Day Years Used Date Smoking Tobacco: Former Cigarettes 0.3 34 Smokeless Tobacco: Never Tobacco Cessation:Counseling Given: Not Answered Alcohol Use Standard Drinks/Week Comments Yes 0 [...] any clubs o r organizations such as yarsanism groups, unions, fraternal or athletic groups, or [...] medical care, and heating? Somewhat hard 09/22/2022 [facility] [place] [facility] Occupat ional Health - Occupational Stress [...] place to sleep or slept in a senior care (including now)? No 09/22/2022 Education Answer Date [...] Orientation Straight 05/20/2021 2: 51 PM EDT Last Filed Vital Signs Vital Sign Reading Time Taken Comments Blood Pressure 124/92 08/13/2023 11:01 AM EDT Pulse 95 08/13/2023 11:01 AM EDT Temperature 35.9 C (96.7 F) 08/13/2023 11:01 AM EDT Respiratory Rate 19 08/08/2023 4:11 PM EDT Oxygen Saturation 99% 08/13/2023 11: 01 AM EDT Inhaled Oxygen Concentration - - Weight 80.7 kg (177 lb 14.4 oz) 023 11:01 AM EDT Height 165.1 cm (5' 5 ) 10/07/2019 8:19 AM EST Body Mass Index 29.6 10/07/2019 8:19 AM EST Plan of Treatment Health Maintenance Due Date Last Done Comments Hepatitis A (HAV) Vaccine (1 of 2 - Risk 2-dose series) 1994 Hepatitis B (HBV) Vaccine (1 of 3 - 19+ 3-dose series) 1994 Shingles (RZV) Vaccine (1 of 2) 1994 Pap Smear 1996 Mammography 2015 Annual Wellness Visit (G0438) 02/28/2018 Cologuard (Stool DNA) 2020 FIT 2020 COVID-19 Vaccine (2024-2 6 season) 2025 10/14/2023, 01/06/2023, 08/28/2021, Additional history exists Influenza Vaccine (#1) 2025 , 09/12/2022, 11/06/2021, Additional history exists Tetanus (Td or Tdap) Booster 01/10/2026 01/10/2016 CRC Screening 09/16/2026 Colonoscopy 09/16/2026 09/16/2016, 09/16/2016 Pneumococcal Vaccine(s) (50+ yrs) (4 of 4 - PCV20 or PCV21) 11/06/2026 11/06/2021, 09/21/2019, 01/10/2016 Cholesterol 05/15/2028 05/15/2023, 06/04/2018, 05/05/2018, Additional history exists Tdap Booster Completed 01/10/2016 HIV Test Completed 05/05/2018 Hepatitis C Antibody Completed 02/28/2019 Procedures Procedure Name Priority Date/Time Associated Diagnosis Comments HEPATITIS C ANTIBODY Routine 02/28/2019 4:33 PM EDT High risk medication use FULL LIPID PROFILE STAT 06/25/2017 6: 08 AM EDT COLONOSCOPY, FLEXIBLE, PROXIMAL TO SPLENIC FLEXURE; DX, W/WO SPECIMENS/COLON DECOMP (SEP PROC) Routine 09/16/2016 12:11 PM EDT Rectal bleeding from Last 3 Months or Most Recently Relevant to Health Maintenance Results * HEPATITIS C ANTIBODY (02/28/2019 4:33 PM EDT) Pathologist [facility] Hepatitis C Ab Nonreactive Nonreactive 02/28/2019 7:03 PM EDT [facility] Blood BLOOD SPECIMEN / Unknown Venipuncture / Unknown 02/28/2019 4:33 PM EDT 02/28/2019 5:13 PM EDT us Kinjal Dotson MD EC HIV/HEP/SYPH TESTING Final Result [facility] [address] [place] [id number] * (ABNORMAL) FULL LIPID PROFILE (06/25/2017 6:08 AM EDT) Pathologist [facility] Cholesterol 149 <181 mg/dL 06/25/2017 6:40 AM EDT [facility] Triglycerides 136 <151 mg/dL 06/25/2017 6:40 AM EDT [facility] HDL Cholesterol 53(L) >54 mg/dL 7 6:40 AM EDT [facility] LDL cholesterol 78 <111 mg/dL 7 6:40 AM EDT [facility] Non-HDL Cholesterol 96 <130 mg/dL 06/25/2017 6:40 AM EDT [facility] Chol/HDL Ratio 2.81 06/25/2017 6:40 AM EDT [facility] LDL/HDL Ratio 1.47 <3.57 06/25/2017 6:40 AM EDT [facility] Blood BLOOD SPECIMEN / Unknown Venipuncture / Unknown 06/25/2017 6:08 AM EDT 06/25/2017 6:11 AM EDT us Jase Gorman MD [address] [facility] Final Resul t [facility] [address] [place] [address] from Last 3 Months or Most Recently Relevant to Health Maintenance Insurance [employer] - MEDICARE D[employer] MEDICAID [employer] - MEDICARE Advance Directives * Full Code (Latest Code Status on File) Date Activated Date Inactivated Comments 01/08/2018 4:36 PM 01/09/2018 12:51 PM Care Teams Land Inspector Relationship Specialty Start Date End Date Elsy Woods APRN-INFORMATION SECURITY OFFICER [address] [place] [address] PCP - General Family Medicine 11/12/22 Antwan Woodruff MD [address] [place], [place] [phone] Fellow Gastroenterology 04/22/17 Don Moya MD [address] [place] [address] Physician Orthopaedic Surgery 09/04/20 Nathaniel Ovalle MD [address] [place] [address] Physician Pain Management 09/04/20 Lianne Mayo DO [address] [place] [address] [place] [address] Resident Dermatology 09/04/20 Karlee Sanchez MD [address] [place] [address] [place] [address] Physician Dermatology 05/31/22 Regina Bright MD [address] [place] [address] Physician Dermatology 08/02/22 Mason Walls MD [address] [place] [address] Fellow Gastroenterology 01/03/23 Shira Grady DO [address] [place] [address] Physician Dermatology 08/01/23 Mack Vega MD [address] [place] [address] Fellow Gastroenterology 09/05/23
--- OUTSIDE RECORDS SUMMARY | 2025-08-02 10:38 | XMS_ITS | Encounter Summary ---
Author Organization [facility] Address [address] [place] [address] Care Team Providers Care Elementary Math Tutor Name Role Phone Antwan Woodruff MD Unavailable Radha Negrete MD Primary Care Provider [phone] Don Moya MD Unavailable [phone] Nathaniel Ovalle MD Unavailable [phone] Lianne Mayo DO Unavailable [phone] Karlee Sanchez MD Unavailable [phone] Regina Bright MD Unavailable [phone] Elsy Woods HUMAN PERFORMANCE TECHNOLOGIST-CUSTOMER SPECIALIST Primary Care Provider + [phone] Mason Walls MD Unavailable [phone] Juni Joseph RPh Unavailable Unavailable Ronit Zapata packing floor worker Unavailable Unavailable Maya Howard Unavailable Unavailable Stashantell Joseph RPh Unavailable Unavailable Ronit Zapata packing floor worker Unavailable Unavailable Maya Howard Unavailable Unavailable Shira Grady DO Unavailable [phone] Mack Vega MD Unavailable Encounter Details Date Type Department Care Team (Late st Contact Info) Description 12/27/2015 [facility] [address] [place] [address] Urvashi Hale MD [address] [facility] [place] [address] Social History Tobacco Use Types Packs/Day Years Used Date Smoking Tobacco: Never Assessed Comments Unknown Sex and Gender Information Value Date Recorded Sex Assigned at Female 05/20/2021 2:51 PM EDT Legal Sex Female 3:00 PM EST Gender Identity Female 05/20/2021 2:51 PM EDT Sexual Orientation Straight 05/20/2021 2: 51 PM EDT documented as of this encounter Plan of Treatment Not on file documented as of this encounter Procedures Procedure Name Priority Date/Time Associated Diagnosis Comments US LIVER/GALL BLADDER/PANCREAS Routine 01/06/2016 10:28 AM EST Abdominal pain, right upper quadrant documented in this encounter Results * US LIVER/GALL BLADDER/PANCREAS (01/06/2016 10:28 AM EST) Anatomical Region Laterality Modality N/A Other 01/06/2016 10:2 8 AM EST Narrative 01/06/2016 12:02 PM EST EXAMINATION US LIVER/GALL BLADDER/PANCREAS CLINICAL HISTORY /o cholelithiasis/cholecystitis COMPARISON None TECHNIQUE Sector scanning of the right upper quadrant was performed by the ophthalmic technologist. FINDINGS The liver is normal in size. Diffuse increased hepatic echogenicity is noted consistent with diffuse hepatocellular disease most compatible with diffuse hepatic steatosis. No focal hepatic abnormality is noted. The gallbladder is unremarkable. No biliary dilatation is seen. The extrahepatic common duct measures 2 millimeters in greatest transverse dimension. The pancreas is not visualized due to bowel gas shadowing. No ascites is present. IMPRESSION 1. Findings compatible with diffuse hepatic steatosis. 2. Unremarkable gallbladder. 3. No biliary dilatation. 4. Nonvisualization of the pancreas. MACRO NONE us Urvashi Hale MD EC ULTRASOUND Final Result documented in this encounter Visit Diagnoses Diagnosis Abdominal pain, right upper quadrant- Primary documented in this encounter Care Teams Elementary Math Tutor Relationship Specialty Start Date End Date Radha Negrete MD [facility] [place] [address] PCP - General Pediatrics 12/08/17 11/11/22 Elsy Woods APRN-CUSTOMER SPECIALIST [address] [place] [address] PCP - General Family Medicine 11/12/22 Antwan Woodruff MD [address] [place] [address] Fellow Gastroenterology 04/22/17 Don Moya MD [address] [place] [address] Physician Orthopaedic Surgery 09/04/20 Nathaniel Ovalle MD [address] [place] [address] Physician Pain Management 09/04/20 Lianne Mayo DO [address] [place] [address] [address] [place] [id number] Resident Dermatology 09/04/20 Karlee Sanchez MD [address] [place] [address] [address] [place] [phone] Physician Dermatology 05/31/22 Regina Bright MD [address] [place], [place] [address] Physician Dermatology 08/02/22 Mason Walls MD [address] [place] [address] Fellow Gastroenterology 01/03/23 Joseph Alfredo, [address] [address] Pharmacist 03/06/23 05/12/23 Ronit Zapata, [facility] Pharmacology and Toxicology 03/06/23 05/12/23 Maya Howard [address] [place] [address] [place] [address] Medication Grapple Crew Leader Pharmacology and Toxicology 03/06/23 05/12/23 Joseph Alfredo, [place] [id number] Pharmacist 07/22/23 08/28/23 Ronit Zapata, [facility] Pharmacology and Toxicology 07/22/23 08/28/23 Maya Hwoard [address] [place] [address] [address] [place] [phone] Medication Grapple Crew Leader Pharmacology and Toxicology 07/22/23 08/28/23 Shira Grady DO [address] [place] [address] [address] [place] [phone] Physician Dermatology 08/01/23 Mack Vega MD [address] [place] [address] Fellow Gastroenterology 09/05/23 documented as of this encounter
--- OUTSIDE RECORDS SUMMARY | 2025-08-02 10:38 | XMS_ITS | Encounter Summary ---
Author Organization [facility] Address [address] [place] [address] Care Team Providers Care Vulcanizer Name Role Phone Antwan Woodruff MD Unavailable Radha Negrete MD Primary Care Provider [phone] Don Moya MD Unavailable [phone] Nathaniel Ovalle MD Unavailable [phone] Lianne Mayo DO Unavailable [phone] Karlee Sanchez MD Unavailable [phone] Regina Bright MD Unavailable [phone] Elsy Woods TELEVISION INSTALLER-SENIOR APPLICATION SOFTWARE ENGINEER Primary Care Provider + [phone] Mason Walls MD Unavailable [phone] Stashantell Joseph RPh Unavailable Unavailable Ronit Zapata transportation driver Unavailable Unavailable Maya Howard Unavailable Unavailable Stashantell Joseph RPh Unavailable Unavailable Ronit Zapata transportation driver Unavailable Unavailable Maya Howard Unavailable Unavailable Shira Grady DO Unavailable [phone] Mack Vega MD Unavailable Encounter Details Date Type Department Care Team (Late st Contact Info) Description 02/12/2022 Community Orders [facility] [address] [place] [address] Shelley-Vogel, Sonya Social History Tobacco Use Types Packs/Day Years Used Date Smoking Tobacco: Every Day Cigarettes 0.3 34 Smokeless Tobacco: Never Alcohol Use Standard Drinks/Week Comments Yes 0 (1 standard drink = 0.6 oz pur e alcohol) socially Sexually Active Control Partners Comments Yes Male [...] of Assessment Author No 01/08/2018 4:38 PM EST Alexandria Quinn APRN-CNP * Visual impairment? Answer Date of Assessment Author No 01/08/2018 4:38 PM EST Alexandria Quinn APRN-CNP * Gait/Transfer impairment? Answer Date of [...] as of this encounter Visit Diagnoses Diagnosis Acute pain of both knees- Primary documented in this encounter Care Teams Vulcanizer Relationship Specialty Start Date End Date Radha Negrete MD [address] [place] [address] PCP - General Pediatrics 12/08/17 11/11/22 Elsy Woods APRN-CNP [address] [place], [place] [phone] PCP - General Family Medicine 11/12/22 Antwan Woodruff MD [address] [place] [address] Fellow Gastroenterology 04/22/17 Don Moya MD [address] [place] [address] Physician Orthopaedic Surgery 09/04/20 Nathaniel Ovalle MD [address] [place] [address] Physician Pain Management 09/04/20 Lianne Mayo DO [address] [place] [address] [address] [place] [phone] Resident Dermatology 09/04/20 Karlee Sanchez MD [address] [place] [address] [address] [place] [phone] Physician Dermatology 05/31/22 Regina Bright MD [address] [place], [place] [phone] Physician Dermatology 08/02/22 Mason Walls MD [address] [place] [address] Fellow Gastroenterology 01/03/23 Joseph Alfredo, [address] [address] Pharmacist 03/06/23 05/12/23 [facility] 03/06/23 05/12/23 Maya Howard [address] [place] [address] [place] [address] Medication Radiagraph Operator Pharmacology and Toxicology 03/06/23 05/12/23 Joseph Alfredo [address] [address] Pharmacist 07/22/23 08/28/23 Ronit Zapata CPhT Tech Pharmacology and Toxicology 07/22/23 08/28/23 Maya Howard [address] [place] [address] Medication Radiagraph Operator Pharmacology and Toxicology 07/22/23 08/28/23 Shira Grady DO [address] [place] [address] [place] [address] Physician Dermatology 08/01/23 Mack Vega MD [address] [place] [address] Fellow Gastroenterology 09/05/23 documented as of this encounter
--- OUTSIDE RECORDS SUMMARY | 2025-08-02 10:38 | XMS_ITS | Encounter Summary ---
Author Organization [facility] Address [address] [place] [address] Care Team Providers Care Operations And Intelligence Assistant Name Role Phone Antwan Woodruff MD Unavailable Don Moya MD Unavailable [phone] Nathaniel Ovalle MD Unavailable [phone] Lianne Mayo DO Unavailable [phone] Karlee Sanchez MD Unavailable [phone] Regina Bright MD Unavailable [phone] Leopoldo Woods APRN-VENDING MACHINE REFILLER Primary Care Provider [phone] Mason Walls MD Unavailable [phone] Shira Grady DO Unavailable [phone] Mack Vega MD Unavailable Reason for Referral * Diagnostic X-Ray (Routine) - Closed Specialty Diagnoses / Procedures Referred By Contguillermina t Referred To Contact Radiology Diagnoses Colicky RUQ abdominal pain Procedures US LIVER/GALL BLADDER/PANCREAS Leopoldo Woods APRN-CNP [facility] [place] [address] Phone: tel: fax: [facility] [address] [place] [address] Phone: tel: Referral ID Status Reason Start Date Expiration Date Visits Re quested Visits Authorized [id number] Closed 10/15/2023 10/14/2024 1 1 Encounter Details Date Type Department Care Team (Late st Contact Info) Description 10/15/2023 Community Orders [facility] [address] [place] [id number] Leopoldo Woods APRN-CNP [address] [place] [address] Social History Tobacco Use Types Packs/Day Years [...] 09/22/2022 How often do you attend chur or caodaism services? Never 09/22/2022 Do you belong to any clubs o r organizations such as moravian groups, unions, fraternal or athletic groups, or [...] heating? Somewhat hard 09/22/2022 [facility]at ional [facility] - Occupational Stress [...] money to buy more. Never true 09/22/20 Within the past 12 months, t he [...] place to sleep or slept in a chcf (including now)? No 09/22/2022 Education Answer Date [...] Assessment Author No 01/08/2018 4:38 PM EST Balwinder-Alexandria Funez APRN-VENDING MACHINE REFILLER * Visual impairment? Answer Date of Assessment Author No 01/08/2018 4:38 PM EST Balwinder-Geraldo Alexandria fonseca APRN-VENDING MACHINE REFILLER * Gait/Transfer impairment? Answer Date of Assessment Author No 01/08/2018 4:38 PM EST Balwinder-Geraldo Alexandria fonseca APRN-VENDING MACHINE REFILLER * ADL impairment? Answer Date of Assessment Author No 01/08/2018 4:38 PM EST Balwinder-Alexandria Funez APRN-VENDING MACHINE REFILLER * Difficulty with errands? Answer Date of Assessment Author No 01/08/2018 4:38 PM EST Balwinder-Alexandria Funez APRN-RACHEL documented as of this encounter Mental Status * Cognitive difficulty? Answer Entry Date Author No 01/08/2018 4:38 PM EST Balwinder-Alexandria Funez APRN-VENDING MACHINE REFILLER documented in this encounter Plan of Treatment Not on file documented as of this encounter Results * US LIVER/GALL BLADDER/PANCREAS (10/19/2023 10:13 AM EST) Anatomical Region Laterality Modality US Abdomen N/A Ultrasound 10/19/2023 11:0 9 AM EST Narrative 10/19/2023 11:11 AM EST EXAMINATION: US LIVER/GALL BLADDER/PANCREAS 10/19/2023 10:13 AM [...] explain right upper quadrant pain. MACRO: None Procedure Note Carl Constantino MD - 10/19/2023 EXAMINATION: US LIVER/GALL BLADDER/PANCREAS 10/19/2023 10:13 AM CLINICAL HISTORY: abdominal pain ASSOCIATED DIAGNOSIS: Colicky RUQ abdominal pain ORDERING PROVIDER: LEOPOLDO WOODS COMPARISON: US LIVER/GALL BLADDER/PANCREAS 12/04/2022, 8:08 AM TECHNIQUE: Ultrasound real time scan with image documentation of the rightupper quadrant including the liver, gallbladder, and pancreas wasperformed. FINDINGS: Liver Craniocaudal length: 14.9 cm. Echogenicity: Increased hepatic echogenicity and decreased acousticpenetration and conspicuity of the portal triads, compatible with moderatesteatosis. Surface nodularity: Not visualized Mass (size and location): None. Bile ducts Intrahepatic ducts: No biliary dilatation. Common bile duct: Normal caliber. Diameter 2 mm. Gallbladder Size and morphology: Normal caliber and wall thickness. Cholelithiasis: None. Pericholecystic fluid: None. Sonographic Duval sign: Absent. Pancreas The pancreatic head and body are unremarkable. Visualization of the tailis limited. Other findings None. IMPRESSION: Moderate hepatic steatosis. No abnormality seen to explain right upperquadrant pain. MACRO: None Leopoldo Woods TREE KILLER-VENDING MACHINE REFILLER ULTRASOUND Final Resu lt documented in this encounter Visit Diagnoses Diagnosis Colicky RUQ abdominal pain- Primary Colicky RUQ abdominal pain documented in this encounter Care Teams Operations And Intelligence Assistant Relationship Specialty Start Date End Date Leopoldo Woods APRN-RACHEL [address] [place] [address] PCP - General Family Medicine 11/12/22 Antwan Woodruff MD [address] [place] [address] Fellow Gastroenterology 04/22/17 Don Moya MD [address] [place] [address] Physician Orthopaedic Surgery 09/04/20 Nathaniel Ovalle MD [address] [place] [address] Physician Pain Management 09/04/20 Lianne Mayo DO [address] [place] [address] [place] [address] Resident Dermatology 09/04/20 Karlee Sanchez MD [address] [place] [address] [address] [place] [id number] Physician Dermatology 05/31/22 Regina Bright MD [address] [place] [address] Physician Dermatology 08/02/22 Mason Walls MD [address] [place] [address] Fellow Gastroenterology 01/03/23 Shira Grady DO [address] [place] [address] [place] [address] Physician Dermatology 08/01/23 Mack Vega MD [address] [place] [address] Fellow Gastroenterology 09/05/23 documented as of this encounter
--- OUTSIDE RECORDS SUMMARY | 2025-08-02 10:38 | XMS_ITS | Encounter Summary ---
Author Organization [facility] Address [address] [facility] [place] [address] Care Team Providers Care Ornamental Metal Erector Apprentice Name Role Phone Antwan Woodruff MD Unavailable Radha Negrete MD Primary Care Provider [phone] Don Moya MD Unavailable [phone] Nathaniel Ovalle MD Unavailable [phone] Lianne Mayo DO Unavailable [phone] Karlee Sanchez MD Unavailable [phone] Regina Bright MD Unavailable [phone] Elsy Woods MOLD CAPPER-RN STARS Primary Care Provider + [phone] Mason Walls MD Unavailable [phone] Juni Joseph RP Unavailable Unavailable Ronit Zapata CPhT Unavailable Unavailable Maya Howard Unavailable Unavailable Juni Joseph RPh Unavailable Unavailable Ronit Zapata CPhT Unavailable Unavailable Maya Howard Unavailable Unavailable Shira Grady DO Unavailable [phone] Mack Vega MD Unavailable Encounter Details Date Type Department Care Team (Late st Contact Info) Description 05/29/2022 Abstract PATIENT ACUITY SCORE Social History Tobacco Use Types Packs/Day Years [...] No 01/08/2018 4:38 PM EST Balwinder-Alexandria Funez APRN-CNP * Visual impairment? Answer Date of Assessment Author No 01/08/2018 4:38 PM EST Balwinder-Alexandria Funez APRN-CNP * Gait/Transfer impairment? Answer Date of Assessment Author No 01/08/2018 4:38 PM EST Alexandria Quinn APRN-CNP * ADL impairment? Answer Date of Assessment Author No 01/08/2018 4:38 PM EST Balwinder-Alexandria Fuenz APRN-CNP * Difficulty with errands? Answer Date of Assessment Author No 01/08/2018 4:38 PM EST Balwinder-Alexandria Funez APRN-CNP documented as of this encounter Mental Status * Cognitive difficulty? Answer Entry Date Author No 01/08/2018 4:38 PM EST Alexandria Quinn APRN-CNP documented in this encounter Plan of Treatment Not on file documented as of this encounter Visit Diagnoses Not on filedocumented in this encounter Care Teams Ornamental Metal Erector Apprentice Relationship Specialty Start Date End Date Radha Negrete MD [address] [place], [place] [id number] PCP - General Pediatrics 12/08/17 11/11/22 Elsy Woods APRN-CNP [address] [place], [place] [id number] PCP - General Family Medicine 11/12/22 Antwan Woodruff MD [address] [place], [place] [address] Fellow Gastroenterology 04/22/17 Don Moya MD [address] [place] [address] Physician Orthopaedic Surgery 09/04/20 Nathaniel Ovalle MD [address] [place] [address] Physician Pain Management 09/04/20 Lianne Mayo DO [address] [place] [address] [place] [address] Resident Dermatology 09/04/20 Karlee Snachez MD [address] [place] [address] [address] [place] [id number] Physician Dermatology 05/31/22 Regina Bright MD [address] [place], [place] [address] Physician Dermatology 08/02/22 Mason Walls MD [address] [place] [address] Fellow Gastroenterology 01/03/23 Joseph Alfredo, [address] [address] Pharmacist 03/06/23 05/12/23 Ronit Zapata, [facility] Tech Pharmacology and Toxicology 03/06/23 05/12/23 Maya Howard [address] [place] [address] [place] [address] Medication Director Web Pharmacology and Toxicology 03/06/23 05/12/23 Joseph Alfredo, [address] [address] Pharmacist 07/22/23 08/28/23 Ronit Zapata, tarper Tech Pharmacology and Toxicology 07/22/23 08/28/23 Maya Howard [address] [place] [address] [place] [address] Medication Director Web Pharmacology and Toxicology 07/22/23 08/28/23 Shira Grady DO [address] [facility] [place] [address] Physician Dermatology 08/01/23 Mack Vega MD [address] [facility] [place] [address] Fellow Gastroenterology 09/05/23 documented as of this encounter
--- OUTSIDE RECORDS SUMMARY | 2025-08-02 10:38 | XMS_ITS | Encounter Summary ---
Author Organization [facility] Address [address] [place] [address] Care Team Providers Care Behavior Analyst Name Role Phone Antwan Woodruff MD Unavailable Radha Negrete MD Primary Care Provider [phone] Don Moya MD Unavailable [phone] Nathaniel Ovalle MD Unavailable [phone] Lianne Mayo DO Unavailable [phone] Karlee Sanchez MD Unavailable [phone] Regina Bright MD Unavailable [phone] Elsy Woods MERCHANDISE APPRAISER-MANUAL LATHE OPERATOR Primary Care Provider + [phone] Mason Walls MD Unavailable [phone] Stashantell Joseph RPh Unavailable Unavailable Ronit Zapata wrapper sorter Unavailable Unavailable Maya Howard Unavailable Unavailable Stalcrosaline Joseph RPh Unavailable Unavailable Ronit Zapata wrapper sorter Unavailable Unavailable Maya Howard Unavailable Unavailable Shira Grady DO Unavailable [phone] Mack Vega MD Unavailable Encounter Details Date Type Department Care Team (Late st Contact Info) Description 06/15/2017 Community [facility] [address] [place] [address] Joelle Grimm APRN-MANUAL LATHE OPERATOR [address] [place], [place] [address] Social History Tobacco Use Types Packs/Day Years [...] as of this encounter Visit Diagnoses Diagnosis Cervicalgia- Primary documented in this encounter Care Teams Behavior Analyst Relationship Specialty Start Date End Date Radha Negrete MD [address] [place], [place] [phone] PCP - General Pediatrics 12/08/17 11/11/22 Elsy Woods MERCHANDISE APPRAISER-MANUAL LATHE OPERATOR [address] [place], [place] [phone] PCP - General Family Medicine 11/12/22 Antwan Woodruff MD [address] [place], [place] [address] Fellow Gastroenterology 04/22/17 Don Moya MD [address] [place], [place] [address] Physician Orthopaedic Surgery 09/04/20 Nathaniel Ovalle MD [address] [place] [address] Physician Pain Management 09/04/20 Lianne Mayo DO [address] [place] [address] Resident Dermatology 09/04/20 Karlee Sanchez MD [address] [place] [address] [address] [place] [id number] Physician Dermatology 05/31/22 Regina Bright MD [address] [place] [address] Physician Dermatology 08/02/22 Mason Walls MD [address] [place] [address] Fellow Gastroenterology 01/03/23 Joseph Alfredo, [address] [address] Pharmacist 03/06/23 05/12/23 Ronit Zapata, [facility] Tech Pharmacology and Toxicology 03/06/23 05/12/23 Maya Howard [address] [place] [address] [place] [address] Medication Metalworker Pharmacology and Toxicology 03/06/23 05/12/[address] [address] Pharmacist 07/22/23 08/28/23 Ronit Zapata, [facility] Tech Pharmacology and Toxicology 07/22/23 08/28/23 Maya Howard [address] [place] [address] [place] [address] Medication Metalworker Pharmacology and Toxicology 07/22/23 08/28/23 Shira Grady DO [address] [place] [address] [place] [address] Physician Dermatology 08/01/23 Mack Vega MD [address] [place], [place] [address] Fellow Gastroenterology 09/05/23 documented as of this encounter
--- OUTSIDE RECORDS SUMMARY | 2025-08-02 10:38 | XMS_ITS | Encounter Summary ---
Author Organization [facility] Address [address] [facility] [place] [address] Care Team Providers Care Business Unit Leader Name Role Phone Antwan Woodruff MD Unavailable Radha Negrete MD Primary Care Provider [phone] Don Moya MD Unavailable [phone] Nathaniel Ovalle MD Unavailable [phone] Lianne Mayo DO Unavailable [phone] Karlee Sanchez MD Unavailable Regina Bright MD Unavailable [phone] Elsy Woods PROTECTIVE SIGNAL SUPERINTENDENT-LEAD MACHINIST Primary Care Provider + [phone] Mason Walls MD Unavailable [phone] Juni Joseph RP Unavailable Unavailable Ronit Zapata CPhT Unavailable Unavailable Maya Howard Unavailable Unavailable Juni Joseph RPh Unavailable Unavailable Ronit Zapata CPhT Unavailable Unavailable Maya Howard Unavailable Unavailable Shira Grady DO Unavailable [phone] Mack Vega MD Unavailable Encounter Details Date Type Department Care Team (Late st Contact Info) Description 02/27/2022 Abstract PATIENT ACUITY SCORE Social History Tobacco [...] 4:38 PM EST Balwinder-Alexandria Funez APRN-CNP * Difficulty with errands? Answer Date [...] on filedocumented in this encounter Care Teams Business Unit Leader Relationship Specialty Start Date End Date Radha Negrete MD [address] [place], [place] [phone] PCP - General Pediatrics 12/08/17 11/11/22 Elsy Woods APRN-CNP [address] [place], [place] [address] PCP - General Family Medicine 11/12/22 Antwan Woodruff MD [address] [place], [place] [address] Fellow Gastroenterology 04/22/17 Don Moya MD [address] [place] [address] Physician Orthopaedic Surgery 09/04/20 Nathaniel Ovalle MD [address] [place] [address] Physician Pain Management 09/04/20 Lianne Mayo DO [address] [place] [address] [place] [address] Resident Dermatology 09/04/20 Karlee Sanchez MD [address] [place] [address] [address] [place] [id number] Physician Dermatology 05/31/22 Regina Bright MD [address] [place], [place] [address] Physician Dermatology 08/02/22 Mason Walls MD [address] [place] [address] Fellow Gastroenterology 01/03/23 Joseph Alfredo, [address] [address] Pharmacist 03/06/23 05/12/23 Ronit Zapata, [facility] Tech Pharmacology and Toxicology 03/06/23 05/12/23 Maya Howard [address] [place] [address] [place] [address] Medication Roller Printing Supervisor Pharmacology and Toxicology 03/06/23 05/12/23 Joseph Alfredo, [address] [address] Pharmacist 07/22/23 08/28/23 Ronit Zapata, duplex trimmer Tech Pharmacology and Toxicology 07/22/23 08/28/23 Maya Howard [address] [place] [address] [place] [address] Medication Roller Printing Supervisor Pharmacology and Toxicology 07/22/23 08/28/23 Shira Grady DO [address] [facility] [place] [address] Physician Dermatology 08/01/23 Mack Vega MD [address] [facility] [place] [address] Fellow Gastroenterology 09/05/23 documented as of this encounter
--- OUTSIDE RECORDS SUMMARY | 2025-08-02 10:38 | XMS_ITS | Encounter Summary ---
Author Organization [facility] Address [address] [facility] [place] [address] Care Team Providers Care Pleating Supervisor Name Role Phone Antwan Woodruff MD Unavailable Don Moya MD Unavailable + [phone] Nathaniel Ovalle MD Unavailable [phone] Lianne Mayo DO Unavailable [phone] Karlee Sanchez MD Unavailable [phone] Regina Bright MD Unavailable [phone] Elsy Woods ADMINISTRATOR SOCIAL WELFARE-INSIDE CHANNEL ACCOUNT MANAGER Primary Care Provider [phone] Mason Walls MD Unavailable [phone] Juni Joseph RPh Unavailable Unavailable Ronit Zapata CPhT Unavailable Unavailable Maya Howard Unavailable Unavailable Stalcrosaline Joseph RPh Unavailable Unavailable Ronit Zapata CPhT Unavailable Unavailable Maya Howard Unavailable Unavailable Shira Grady DO Unavailable [phone] Mack Vega MD Unavailable Reason for Referral * Service Level Authorization (Routine) - Closed Specialty Diagnoses / Procedures Referred By Contguillermina t Referred To Contact Gastroenterology Diagnoses RUQ pain Dyspepsia Elsy Woods APRN-INSIDE CHANNEL ACCOUNT MANAGER [address] [place] [address] Phone: tel: fax: [facility] GASTROENTEROLOGY [address] [place] [address] Phone: tel: Referral ID Status Reason Start Date Expiration Date Visits Re quested Visits Authorized [id number] Closed 12/05/2022 12/05/2023 3 3 Scheduling Instructions Please call the Gastroenterology Clinic at to schedule an appointment if one was not made for you today. Question Answer Reason for Referral: Pain-Abdomen [16] - EGD Consult for severe stomach pain and acute dyspepsia not responsive to H2 and PPI Which GI clinic should the patient be scheduled in? General GI Clinic Comments Most recent visit in Gastroenterology was on 12/17/2017 with Doug Carmichael MD Encounter Details Date Type Department Care Team (Late st Contact Info) Description 12/05/2022 Community Orders [facility] [address] [place] [address] Elsy Woods APRN-CNP [facility] [place] [address] Social History Tobacco Use Types Packs/Day Years [...] often do you attend chur ch or christianity services? Never 09/22/2022 Do you belong to any clubs o r organizations such as hinduism groups, unions, fraternal or athletic groups, or [...] medical care, and heating? Somewhat hard 09/22/2022 [employer] [facility] Occupat ional Health - Occupational Stress [...] place to sleep or slept in a penitentiary (including now)? No 09/22/2022 Education Answer Date [...] Orientation Straight 05/20/2021 2: 51 PM EDT COVID-19 Exposure Response Date Recorded In the last 10 days, have yo u been in contact with someone who was confirmed or suspected to have Coronavirus/COVID-19? No / Unsure 11/12/2022 5:50 PM EST documented as of this encounter Functional Status [...] 4:38 PM EST Alexandria Quinn APRN-CNP * Difficulty with errands? Answer Date of Assessment Author No 01/08/2018 4:38 PM EST Alexandria Quinn APRN-CNP documented as of this encounter Mental Status * Cognitive difficulty? Answer Entry Date Author No 01/08/2018 4:38 PM EST Alexandria Quinn APRN-CNP documented in this encounter Plan of Treatment Scheduled Referrals Name Type Priority Associated Diagnoses Orde r Schedule GASTROENTEROLOGY SERVICE REQUEST Referral Routine RUQ pain Dyspepsia Ordered: 12/05/2022 documented as of this encounter Visit Diagnoses Diagnosis RUQ pain- Primary Abdominal pain, right upper quadrant Dyspepsia Dyspepsia and other specified disorders of function of stomach documented in this encounter Care Teams Pleating Supervisor Relationship Specialty Start Date End Date Elsy Woods APRN-INSIDE CHANNEL ACCOUNT MANAGER [address] [place] [address] PCP - General Family Medicine 11/12/22 Antwan Woodruff MD [address] [place] [address] Fellow Gastroenterology 04/22/17 Don Moya MD [address] [place] [address] Physician Orthopaedic Surgery 09/04/20 Nathaniel Ovalle MD [address] [place] [address] Physician Pain Management 09/04/20 Lianne Mayo DO [address] [place] [address] [place] [address] Resident Dermatology 09/04/20 Karlee Sanchez MD [address] [place] [address] [place] [address] Physician Dermatology 05/31/22 Regina Bright MD [address] [place] [address] Physician Dermatology 08/02/22 Mason Walls MD [address] [place] [address] Fellow Gastroenterology 01/03/23 Joseph Alfredo, [address] [address] Pharmacist 03/06/23 05/12/23 Ronit Zapata CPhT Tech Pharmacology and Toxicology 03/06/23 05/12/23 Maya Howard [address] [place] [address] [place] [address] Medication Dry House Tender Pharmacology and Toxicology 03/06/23 05/12/23 Joseph Alfredo, CHARLENE [address] [place] [address] Pharmacist 07/22/23 08/28/23 Ronit Zapata CPhT Tech Pharmacology and Toxicology 07/22/23 08/28/23 Maya Howard [address] [place] [address] [place] [address] Medication Dry House Tender Pharmacology and Toxicology 07/22/23 08/28/23 Shira Grady DO [address] [place] [address] [place] [address] Physician Dermatology 08/01/23 Mack Vega MD [address] [place] [address] Fellow Gastroenterology 09/05/23 documented as of this encounter
--- OUTSIDE RECORDS SUMMARY | 2025-08-02 10:38 | XMS_ITS | Encounter Summary ---
Author Organization [facility] Address [address] [facility] [place] [address] Care Team Providers Care Automotive Glass Specialist Name Role Phone Antwan Woodruff MD Unavailable Radha Negrete MD Primary Care Provider [phone] Don Moya MD Unavailable [phone] Nathaniel Ovalle MD Unavailable [phone] Lianne Mayo DO Unavailable [phone] Karlee Sanchez MD Unavailable [phone] Regina Bright MD Unavailable [phone] Elsy Woods APRN-[facility] Primary Care Provider + [phone] Mason Walls MD Unavailable +[phone] [facility] Un[facility] Unavailable Ronit Zapata CPhT Unavailable Unavailable Maya Howard Unavailable Unavailable Stashantell Joseph RPh Unavailable Unavailable Ronit Zapata CPhT Unavailable Unavailable Maya Howard Unavailable Unavailable Shira Grady DO Unavailable [phone] Mack Vega MD Unavailable Reason for Referral * Provider Visit (Routine) - Closed Specialty Diagnoses / Procedures Referred By Contac t Referred To Contact Physical Medicine & Rehab/PM&R Diagnoses DDD (degenerative disc disease), lumbar Urvashi Hale MD [address] [place] [address] Phone: tel: fax: [facility] [address] [place], [place] [address] Phone: tel: Referral ID Status Reason Start Date Expiration Date Visits Re quested Visits Authorized [id number] Closed 03/29/2018 09/25/2018 3 3 Scheduling Instructions You have been referred to the Department of Physical Medicine and Rehabilitation. Please call to schedule an appointment. If you prefer, you may schedule an appointment in person on the first floor of the [facility]. Please arrive 20 minutes prior to your appointment. A personal identification card and insurance card(s) are required at the time of registry. If you have radiology films or other pertinent documents from an outside hospital, please bring them with you. If you are unable to keep your appointment, please call at least 24 hours in advance. Question Answer Patient to be evaluated for: Musculoskeletal Encounter Details Date Type Department Care Team (Late st Contact Info) Description 03/29/2018 [facility] Orders [place] [id number] Urvashi Hale MD [address] [place] [address] Social History Tobacco Use Types Packs/Day Years [...] Author No 01/08/2018 4:38 PM EST Balwinder-Geraldo lAleaxndria APRN-AGRICULTURE LABORER * Visual impairment? Answer Date of Assessment Author No 01/08/2018 4:38 PM JANELLE fonseca ELYSIA IbrahimN-AGRICULTURE LABORER * Gait/Transfer impairment? Answer Date of Assessment Author No 01/08/2018 4:38 PM JNAELLE fonseca ELYSIA IbrahimN-AGRICULTURE LABORER * ADL impairment? Answer Date of Assessment Author No 01/08/2018 4:38 PM JANELLE Osorio Alexandria fonseca APRN-AGRICULTURE LABORER * Difficulty with errands? Answer Date of Assessment Author No 01/08/2018 4:38 PM JANELLE fonseca Alexandria EXCEL SPECIALIST-AGRICULTURE LABORER documented as of this encounter Mental Status * Cognitive difficulty? Answer Entry Date Author No 01/08/2018 4:38 PM JANELLE fonseca ELYSIA IbrahimN-AGRICULTURE LABORER documented in this encounter Plan of Treatment Scheduled Referrals Name Type Priority Associated Diagnoses Orde r Schedule PM&R PHYSICIAN SERVICE REQUEST Referral Routine DDD (degenerative disc disease), lumbar Ordered: 03/29/2018 documented as of this encounter Visit Diagnoses Diagnosis DDD (degenerative disc disease), lumbar- Primary Degeneration of lumbar or lumbosacral intervertebral disc documented in this encounter Care Teams Automotive Glass Specialist Relationship Specialty Start Date End Date Radha Negrete MD [address] [place], [place] [id number] PCP - General Pediatrics 12/08/17 11/11/22 Elsy Woods APRN-CNP [address] [place], [place] [id number] PCP - General Family Medicine 11/12/22 Antwan Woodruff MD [address] [place], [place] [address] Fellow Gastroenterology 04/22/17 Don Moya MD [address] [place] [address] Physician Orthopaedic Surgery 09/04/20 Nathaniel Ovlale MD [address] [place] [address] Physician Pain Management 09/04/20 Lianne Mayo DO [address] [place] [address] [place] [address] Resident Dermatology 09/04/20 Karlee Sanchez MD [address] [place] [address] [address] [place] [id number] Physician Dermatology 05/31/22 Regina Bright MD [address] [place], [place] [address] Physician Dermatology 08/02/22 Mason Walls MD [address] [place], [place] [address] Fellow Gastroenterology 01/03/23 Joseph Alfredo [address] [address] Pharmacist 03/06/23 05/12/23 Ronit Zapata, [facility] Tech Pharmacology and Toxicology 03/06/23 05/12/23 Maya Howard [address] [place] [address] [place] [address] Medication Shipping Associate Pharmacology and Toxicology 03/06/23 05/12/23 Joseph Alfredo [address] [address] Pharmacist 07/22/23 08/28/23 Ronit Zapata, [facility] Tech Pharmacology and Toxicology 07/22/23 08/28/23 Maya Howard [address] [place] [address] [place] [address] Medication Shipping Associate Pharmacology and Toxicology 07/22/23 08/28/23 Shira Grady DO [address] [place] [address] [place] [address] Physician Dermatology 08/01/23 Mack Vega MD [address] [place] [address] Fellow Gastroenterology 09/05/23 documented as of this encounter
--- OUTSIDE RECORDS SUMMARY | 2025-08-02 10:38 | XMS_ITS | Clinical Summary ---
Author Organization [facility] s tem Address [id number] [address] [place] [address] Care Team Providers Care Bearing Grinder Name Role Phone Tony Woodsy Primary Care Provider [phone] Allergies Active Allergy Reactions Criticality Noted Date Comments Morphine 02/29/2024 Penicillins 02/29/2024 Ketorolac Vomiting 02/29/2024 Tramadol Vomiting 02/29/2024 Medications atorvastatin (LIPITOR) 20 mg tablet Take 1 tablet (20 mg total) by mouth in the morning. Active linaCLOtide (LINZESS) 72 mcg capsule Take 1 capsule (72 mcg total) by mouth in the morning. Active albuterol (PROVENTIL HFA;VENTOLIN HFA) 90 mcg/actuation inhaler Inhale 2 puffs every 6 (six) hours as needed for wheezing. Active DULoxetine (CYMBALTA) 20 mg capsule Take 1 capsule (20 mg total) by mouth in the morning. Active Social History Tobacco Use Types Packs/Day Years Used Date Smoking Tobacco: Former Cigarettes Q uit: 09/08/2023 Smokeless Tobacco: Never Tobacco Cessation:Counseling Given: Not Answered Alcohol Use Standard Drinks/Week Comments Not Currently 0 (1 standard drink = 0.6 oz pur e alcohol) Childcare Answer Date Recorded Childcare Unknown 05/11/2019 Employment Answer Date Recorded Employment Unknown 05/11/2019 Hunger Screening Answer Date Recorded Within the past 12 months we worried whether our food would run out before we got money to buy more. Never True 02/29/2024 Within the past 12 months th e food we bought just didn't last and we didn't have money to get more. Never True 02/29/2024 Comments No Sex and Gender Information Value Date Recorded Sex Assigned at Female 04/19/2024 8:03 AM EDT Legal Sex Female 11:40 AM EDT Gender Identity Female 04/19/2024 8:03 AM EDT Sexual Orientation Straight 04/19/2024 8: 03 AM EDT Last Filed Vital Signs Vital Sign Reading Time Taken Comments Blood Pressure 143/98 02/29/2024 12:45 PM EDT Pulse 97 02/29/2024 12:45 PM EDT Temperature 36.6 C (97.8 F) 02/29/2024 12:45 PM EDT Respiratory Rate 18 02/29/2024 12:45 PM EDT Oxygen Saturation 98% 02/29/2024 12:45 PM EDT Inhaled Oxygen Concentration - - Weight - - Height - - Body Mass Index - - Plan of Treatment Health Maintenance Due Date Last Done Comments Depression Screening 1987 Adult BMI Screening 1993 COVID-19 Vaccine (2023-2 5 season) 2024 10/14/2023, 01/06/2023, 08/28/2021, Additional history exists Tobacco Screening 02/28/2025 02/29/2024 Zoster (Shingles) Vaccine (1 of 2) 2025 Influenza Vaccine 07/31/2025 10/14/2023, , 11/06/2021, Additional history exists DTaP,Tdap and Td Vaccines (2 - Td or Tdap) 01/10/2026 01/10/2016 Medical Devices Not on file Insurance MEDICAID [place] [employer] MEDICARE Care Teams Bearing Grinder Relationship Specialty Start Date End Date Elsy Woods [address] [place] [address] PCP - General Family Medicine 02/29/24
--- OUTSIDE RECORDS SUMMARY | 2025-08-02 10:38 | XMS_ITS | Encounter Summary ---
Author Organization [facility] Address [address] [place] [address] Care Team Providers Care Sectionizer Name Role Phone Elsy Woods MD Primary Care Provider + Encounter Details Date Type Department Care Team (Late Contact Info) Description 07/26/2025 Bamboo flowsheet [facility] [address] [facility] [address] [place] [phone] Kayy Bartlett MD [address] [facility] [address] [place], [place] [phone] Social History Tobacco Use Types Packs/Day Years [...] EST Office Visit [facility] [address] [facility] [address] [place] [phone] Kayy Bartlett MD [address] [facility] [address] [place], [place] [phone] documented as of this encounter Visit Diagnoses Not on filedocumented in this encounter Care Teams Sectionizer Relationship Specialty Start Date End Date Elsy Woods MD [address] [place] [address] PCP - General Family Medicine 02/17/24 documented as of this encounter
--- OUTSIDE RECORDS SUMMARY | 2025-08-02 10:38 | XMS_ITS | Patient Health Record ---
Author Organization [facility] Address [address] [place] [address] Care Team Providers Care Sharepoint Developer Name Role Phone Amarilys Alvarez Unavailable [phone] Reason For Referral No Information Social History Tobacco Use: Social History Observation Description Date Details (start date - stop date) Former Smoker NA - NA Smoking History Question Answer Notes Smoking Status Former Smoker How long since you quit 1 - 5 years AUDIT-C (Standard) Question Answer Notes Did you have a drink containing alcohol in the p ast year? 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) Active confirmed Plan Of Treatment Pending Test Test Name Order Date Lumbar spine 2v flex and ext - 32519 12/2023 Insurance Providers Payer Name Payer Address Payer Phone Subscriber Number Group Number Insured Name Patient Relationship to Insured Coverage Start Date Coverage End Date MEDICARE UHC DUAL COMPLETE [address] [place] [address] [id number] EFRENREMYANALIA Davidson Self - patient is the insured [place] [address] [phone] [id number] ALMAZ ANALIA Self - patient is the insured [facility] of Medicaid [address] [place] [address] [id number] ANALIA MUSE Self - patient is the insured Medical (General) History Medical History History ICD Code Anxiety: Yes Bronchitis: Yes Chronic back pain:: Yes CPAP: Yes Depression: Yes DRUG ALLERGIES: Yes Gastric Reflux: Yes GI Problems: : Yes Irritable bowel syndrome: Yes Osteoarthritis: Yes Osteoporosis: Yes Rheumatoid arthritis: Yes Sciatica: Yes Sleep apnea: Yes Thyroid disease: Yes Have you been seen by a dentist in the l ast year?: Yes Do you have any dental probl ems i.e. Broken, loose, or chipped teeth, absess, gum disease?: Yes
--- OUTSIDE RECORDS SUMMARY | 2025-08-02 10:38 | XMS_ITS | Encounter Summary ---
Author Organization [facility] Address [address] [place] [address] Care Team Providers Care Dynamite Reclaimer Name Role Phone Antwan Woodruff MD Unavailable Don Moya MD Unavailable [phone] Nathaniel Ovalle MD Unavailable [phone] Lianne Mayo DO Unavailable [phone] Karlee Sanchez MD Unavailable [phone] Regina Bright MD Unavailable [phone] Elsy Woods RECORDS SUPERVISOR-WORLD RENOWNED CHEF AND RESTAURANT OWNER Primary Care Provider [phone] Mason Walls MD Unavailable [phone] Shira Grady DO Unavailable [phone] Mack Vega MD Unavailable Reason for Referral * Service Level Authorization (Routine) - Closed Specialty Diagnoses / Procedures Referred By Contac t Referred To Contact Rheumatology Diagnoses Age-related osteoporosis without current pathological fracture Elsy Woods APRN-RACHEL [address] [place] [address] Phone: tel: fax: [facility] [address] [place] [address] Phone: tel: Referral ID Status Reason Start Date Expiration Date Visits Re quested Visits Authorized [id number] Closed 04/29/2024 04/29/2025 3 3 Scheduling Instructions Please call [facility] to schedule an appointment at [phone]. Question Answer Patient to be evaluated for: Osteoporosis [8] - Consultation for infusion, pt suspects will not be able to tolerate PO treatment Comments No prior visits in Rheumatology Encounter Details Date Type Department Care Team (Late st Contact Info) Description 04/29/2024 Community Orders [facility] [address] [place] [address] Elsy Woods APRN-CNP [address] [place] [address] Social History Tobacco Use Types Packs/Day Years [...] week 09/22/2022 How often do you attend [facility] or cheondoism services? Never 09/22/2022 Do you belong to any clubs o r organizations such as faith groups, unions, fraternal or athletic groups, or [...] medical care, and heating? Somewhat hard 09/22/2022 [facility] - Occupational Stress [...] 4:38 PM EST Balwinder-Alexandria Funez APRN-CNP documented in this encounter Plan of Treatment Scheduled Referrals Name Type Priority Associated Diagnoses Orde r Schedule ARTHRITIS SERVICE REQUEST Referral Routine Age-related osteoporosis without current pathological fracture Ordered: 04/29/2024 documented as of this encounter Visit Diagnoses Diagnosis Age-related osteoporosis without current pathological fracture- Primary Senile osteoporosis documented in this encounter Care Teams Dynamite Reclaimer Relationship Specialty Start Date End Date Elsy Woods APRN-CNP [address] [place], [place] [phone] PCP - General Family Medicine 11/12/22 Antwan Woodruff MD [address] [place] [address] Fellow Gastroenterology 04/22/17 Don Moya MD [address] [place] [address] Physician Orthopaedic Surgery 09/04/20 Nathaniel Ovalle MD [address] [place] [address] Physician Pain Management 09/04/20 Lianne Mayo DO [address] [place] [address] [place] [address] Resident Dermatology 09/04/20 Karlee Sanchez MD [address] [place] [address] [address] [place] [phone] Physician Dermatology 05/31/22 Regina Bright MD [address] [place] [address] Physician Dermatology 08/02/22 Mason Walls MD [address] [place], [place] [address] Fellow Gastroenterology 01/03/23 Shira Grady DO [address] [place] [address] [address] [place] [id number] Physician Dermatology 08/01/23 Mack Vega MD [address] [place] [address] Fellow Gastroenterology 09/05/23 documented as of this encounter
--- OUTSIDE RECORDS SUMMARY | 2025-08-02 10:38 | XMS_ITS | Encounter Summary ---
Author Organization [facility] Address [address] [facility] [place] [address] Care Team Providers Care Solar Panel Installer Name Role Phone Antwan Woodruff MD Unavailable Don Moya MD Unavailable [phone] Nathaniel Ovalle MD Unavailable [phone] Lianne Mayo DO Unavailable [phone] Karlee Sanchez MD Unavailable [phone] Regina Bright MD Unavailable [phone] Elsy Woods PUBLIC WORKS INSPECTOR-FAMILY LAWYER Primary Care Provider [phone] Mason Walls MD Unavailable [phone] Juni Joseph RPh Unavailable Unavailable Ronit Zapata CPhT Unavailable Unavailable Maya Howard Unavailable Unavailable Stalcrosaline Joseph RPh Unavailable Unavailable Ronit Zapata CPhT Unavailable Unavailable Maya Howard Unavailable Unavailable Shira Grady DO Unavailable [phone] Mack Vega MD Unavailable Reason for Referral * Service Level Authorization (Routine) - Closed Specialty Diagnoses / Procedures Referred By Contguillermina t Referred To Contact Orthopedics Diagnoses Acute pain of both knees Elsy Woods APRN-RACHEL [address] [place] [address] Phone: tel: fax: S [facility] [address] [place] [address] Phone: tel: Referral ID Status Reason Start Date Expiration Date Visits Re quested Visits Authorized [id number] Closed 12/23/2022 12/23/2023 3 3 Scheduling Instructions Please call [phone] to schedule your appointment in orthopaedics if an appointment was not yet made for you. Question Answer Adult patient to be evaluated for: Knee - Pain - Bilateral [67] Encounter Details Date Type Department Care Team (Late st Contact Info) Description 12/23/2022 Community Orders [place] [phone] Elsy Woods APRN-CNP [address] [place] [id number] Social History Tobacco Use Types Packs/Day Years [...] often do you attend chur ch or denominational services? Never 09/22/2022 Do you belong to [...] medical care, and heating? Somewhat hard 09/22/2022 [facility] - Occupational Stress [...] place to sleep or slept in a mcc (including now)? No 09/22/2022 Education Answer Date [...] Type Priority Associated Diagnoses Orde r Schedule ORTHOPAEDICS SERVICE REQUEST Referral Routine Acute pain of both knees Ordered: 12/23/2022 documented as of this encounter Visit Diagnoses Diagnosis Acute pain of both knees- Primary documented in this encounter Care Teams Solar Panel Installer Relationship Specialty Start Date End Date Elsy Woods APRN-CNP [address] [place] [address] PCP - General Family Medicine 11/12/22 Antwan Woodruff MD [address] [place] [address] Fellow Gastroenterology 04/22/17 Don Moya MD [address] [place] [address] Physician Orthopaedic Surgery 09/04/20 Nathaniel Ovalle MD [address] [place] [address] Physician Pain Management 09/04/20 Lianne Mayo DO [address] [place] [address] [place] [address] Resident Dermatology 09/04/20 Karlee Sanchez MD [address] [place] [address] [address] [place] [id number] Physician Dermatology 05/31/22 Regina Bright MD [address] [place], [place] [address] Physician Dermatology 08/02/22 Mason Walls MD [address] [place] [address] Fellow Gastroenterology 01/03/23 Joseph Alfredo, [address] [address] Pharmacist 03/06/23 05/12/23 Ronit Zapata, [facility] Tech Pharmacology and Toxicology 03/06/23 05/12/23 Maya Howard [address] [place] [address] [place] [address] Medication Sales Activity Manager Pharmacology and Toxicology 03/06/23 05/12/23 Joseph Alfredo, [address] [address] Pharmacist 07/22/23 08/28/23 Ronit Zapata, [facility] Tech Pharmacology and Toxicology 07/22/23 08/28/23 Maya Howard [address] [place] [address] Medication Sales Activity Manager Pharmacology and Toxicology 07/22/23 08/28/23 Shira Grady DO [address] [place] [address] [place] [address] Physician Dermatology 08/01/23 Mack Vega MD [address] [place] [address] Fellow Gastroenterology 09/05/23 documented as of this encounter
--- OUTSIDE RECORDS SUMMARY | 2025-08-02 10:38 | XMS_ITS | Encounter Summary ---
Author Organization [facility] Address [address] [place] [address] Care Team Providers Care Apparel Rental Clerk Name Role Phone Elsy Woods MD Primary Care Provider [phone] Encounter Details Date Type Department Care Team (Latest Contact Info) Description 07/26/2025 Travel Social History Tobacco Use Types Packs/Day Years [...] Description 11/15/2025 1:00 PM EST Office Visit [facility] [address] [facility] [address] [place] [address] Kayy Bartlett MD 112 [facility] [address] [place] [address] documented as of this encounter Visit Diagnoses Not on filedocumented in this encounter Care Teams Apparel Rental Clerk Relationship Specialty Start Date End Date Elsy Woods MD [facility] [place] [address] PCP - General Family Medicine 02/17/24 documented as of this encounter
--- OUTSIDE RECORDS SUMMARY | 2025-08-02 10:38 | XMS_ITS | Encounter Summary ---
Author Organization [facility] Address [address] [facility] [place] [address] Care Team Providers Care Precision Instrument And Tool Maker Name Role Phone Antwan Woodruff MD Unavailable Radha Negrete MD Primary Care Provider [phone] Don Moya MD Unavailable [phone] Nathaniel Oavlle MD Unavailable [phone] Lianne Mayo DO Unavailable [phone] Karlee Sanchez MD Unavailable [phone] Regina Bright MD Unavailable [phone] Elsy Woods SSIS ARCHITECT-OLEOMARGARINE MAKER Primary Care Provider + [phone] Mason Walls MD Unavailable [phone] Juni Joseph RP Unavailable Unavailable Ronit Zapata CPhT Unavailable Unavailable Maya Howard Unavailable Unavailable Juni Joseph RPh Unavailable Unavailable Ronit Zapata CPhT Unavailable Unavailable Maya Howard Unavailable Unavailable Shira Grady DO Unavailable [phone] Mack Vega MD Unavailable Encounter Details Date Type Department Care Team (Late st Contact Info) Description 11/29/2021 Abstract PATIENT ACUITY SCORE Social History Tobacco [...] on filedocumented in this encounter Care Teams Precision Instrument And Tool Maker Relationship Specialty Start Date End Date Radha Negrete MD [address] [place], [place] [phone] PCP - General Pediatrics 12/08/17 11/11/22 Elsy Woods APRN-CNP [address] [place], [place] [phone] PCP - General Family Medicine 11/12/22 Antwan Woodruff MD [address] [place], [place] [address] Fellow Gastroenterology 04/22/17 Don Moya MD [address] [place] [address] Physician Orthopaedic Surgery 09/04/20 Nathaniel Ovalle MD [address] [place] [address] Physician Pain Management 09/04/20 Lianne Mayo DO [address] [place] [address] [place] [address] Resident Dermatology 09/04/20 Karlee Sanchez MD [address] [place] [address] [address] [place] [phone] Physician Dermatology 05/31/22 Regina Bright MD [address] [place], [place] [address] Physician Dermatology 08/02/22 Mason Walls MD [address] [place] [address] Fellow Gastroenterology 01/03/23 Joseph Alfredo, [address] [address] Pharmacist 03/06/23 05/12/23 Ronit Zapata, [facility] Tech Pharmacology and Toxicology 03/06/23 05/12/23 Maya Howard [address] [place] [address] [place] [address] Medication Bullet Assembly Press Setter Operator Pharmacology and Toxicology 03/06/23 05/12/23 Joseph Alfredo, [address] [address] Pharmacist 07/22/23 08/28/23 Ronit Zapata, [employer] [facility] Tech Pharmacology and Toxicology 07/22/23 08/28/23 Maya Howard [address] [place] [address] [place] [address] Medication Bullet Assembly Press Setter Operator Pharmacology and Toxicology 07/22/23 08/28/23 Shira Grady DO [address] [facility] [place] [address] Physician Dermatology 08/01/23 Mack Vega MD [address] [facility] [address] Fellow Gastroenterology 09/05/23 documented as of this encounter
--- OUTSIDE RECORDS SUMMARY | 2025-08-02 10:38 | XMS_ITS ---
Author Organization [facility] Address [address] [facility] [address] [place] [address] Care Team Providers Care Building Materials Sales Attendant Name Role Phone Antwan Woodruff MD Unavailable Don Moya MD Unavailable [phone] Nathaniel Ovalle MD Unavailable [phone] Lianne Mayo DO Unavailable [phone] Karlee Sanchez MD Unavailable [phone] Regina Bright MD Unavailable [phone] Elsy Woods EDUCATIONAL GUIDANCE COUNSELOR-COMPOSITION ROLL MAKER AND CUTTER Primary Care Provider [phone] Mason Walsl MD Unavailable [phone] Shira Grady DO Unavailable Mack Vega MD Unavailable Prior Authorization Status:Enrolled (Active) Start date:07/22/2023 Enrollment date:07/22/2023 Current support & services provided:RxSp Psoriasis Linked medications:Tapinarof (Active) Linked problems:Psoriasis (Active) Overview Created for Specialty Pharmacy Case Team Name Relationship Phone Joseph Alfredo [facility] Pharmacist Ronit Zapata [facility] Tech Maya Howard(Responsible Staff) Medication Acc ess Specialist Continued Care and Services Coordination
--- OUTSIDE RECORDS SUMMARY | 2025-08-02 10:38 | XMS_ITS | Encounter Summary ---
Author Organization [facility] Address [address] [facility] [place] [address] Care Team Providers Care Ict Sales Representative Name Role Phone Antwan Woodruff MD Unavailable Radha Negrete MD Primary Care Provider [phone] Don Moya MD Unavailable [phone] Nathaniel Ovalle MD Unavailable [phone] Lianne Mayo DO Unavailable [phone] Karlee Sanchez MD Unavailable [phone] Regina Bright MD Unavailable [phone] Elsy Woods MATERIAL CONTROL ASSOCIATE-[facility] Primary Care Provider + [phone] Mason Walls MD Unavailable [phone] [facility] Un[facility] Unavailable Ronit Zapata CPhT Unavailable Unavailable Maya Howard Unavailable Unavailable Stashantell Joseph RPh Unavailable Unavailable Ronit Zapata CPhT Unavailable Unavailable Maya Howard Unavailable Unavailable Shira Grady DO Unavailable [phone] Mack Vega MD Unavailable Reason for Referral * Provider Visit (Routine) - Closed Specialty Diagnoses / Procedures Referred By Contac t Referred To Contact Dermatology Diagnoses Psoriasis Urvashi Hale MD [address] [facility] [address] [place] [address] Phone: tel: fax: [facility] [address] [place] [address] Phone: tel: Referral ID Status Reason Start Date Expiration Date Visits Re quested Visits Authorized [id number] Closed 05/14/2021 11/10/2021 3 3 Scheduling Instructions Please call the [facility] at to schedule an appointment if one was not made for you today. Question Answer What is the clinical question for Specialist? Psoriasis Patient to be evaluated for: Psoriasis [45] Patient management request Transfer of care for identified condition Comments Most recent visit in Dermatology was on 02/28/2019 with Lianne Mayo DO Encounter Details Date Type Department Care Team (Late st Contact Info) Description 05/14/2021 Community Orders [facility] [address] [place], [place] [id number] Urvashi Hale MD [address] [place] [address] Social History Tobacco Use Types Packs/Day Years [...] Assessment Author No 01/08/2018 4:38 PM JANELLE DawsonyneAlexandria Almanza APRN-CNP * ADL impairment? Answer Date of Assessment Author No 01/08/2018 4:38 PM Alexandria Urena APRN-CNP * Difficulty with errands? Answer Date of Assessment Author No 01/08/2018 4:38 PM JANELLE Alexandria Quinn APRN-CNP documented as of this encounter Mental Status * Cognitive difficulty? Answer Entry Date Author No 01/08/2018 4:38 PM JANELLE Alexandria uQinn APRN-CNP documented in this encounter Plan of Treatment Scheduled Referrals Name Type Priority Associated Diagnoses Orde r Schedule DERMATOLOGY SERVICE REQUEST Referral Routine Psoriasis Ordered: 05/14/2021 documented as of this encounter Visit Diagnoses Diagnosis Psoriasis- Primary Other psoriasis documented in this encounter Care Teams Ict Sales Representative Relationship Specialty Start Date End Date Radha Negrete MD [address] [place] [address] PCP - General Pediatrics 12/08/17 11/11/22 Elsy Woods APRN-CNP [address] [place] [address] PCP - General Family Medicine 11/12/22 Antwan Woodruff MD [address] [place] [address] Fellow Gastroenterology 04/22/17 Don Moya MD [address] [place] [address] Physician Orthopaedic Surgery 09/04/20 Nathaniel Ovalle MD [address] [place] [address] Physician Pain Management 09/04/20 Lianne Mayo DO [address] [place] [address] Resident Dermatology 09/04/20 Karlee Sanchez MD [address] [place] [address] [address] [place] [id number] Physician Dermatology 05/31/22 Regina Bright MD [address] [place] [address] Physician Dermatology 08/02/22 Mason Walls MD [address] [place] [address] Fellow Gastroenterology 01/03/23 Joseph Alfredo, [address] [address] Pharmacist 03/06/23 05/12/23 Ronit Zapata, [facility] Tech Pharmacology and Toxicology 03/06/23 05/12/23 Maya Howard [address] [place] [address] [place] [address] Medication Crate Tier Pharmacology and Toxicology 03/06/23 05/12/[address] [address] Pharmacist 07/22/23 08/28/23 Ronit Zapata, [facility] Tech Pharmacology and Toxicology 07/22/23 08/28/23 Maya Howard [address] [place] [address] [place] [address] Medication Crate Tier Pharmacology and Toxicology 07/22/23 08/28/23 Shira Grady DO [address] [place] [address] [address] [place] [id number] Physician Dermatology 08/01/23 Mack Vega MD [address] [place], [place] [id number] Fellow Gastroenterology 09/05/23 documented as of this encounter
--- OUTSIDE RECORDS SUMMARY | 2025-08-02 10:38 | XMS_ITS | Encounter Summary ---
Author Organization [facility] Address [address] [place] [address] Care Team Providers Care Technical Asst Name Role Phone Elsy Woods MD Primary Care Provider [phone] Encounter Details Date Type Department Care Team (Late Contact Info) Description 07/19/2025 Bamboo flowsheet [facility] [place] [facility] [address] [facility] [address] [place] [address] Sheridan Santana, [facility] [address] [facility] [place] [address] Social History Tobacco Use Types Packs/Day Years [...] Encounters Date Type Department Care Team (Late Contact Info) Description 11/15/2025 1:00 PM EST Office Visit [facility] [place] [address] [place] [address] [place] [address] Kayy Bartlett MD [address] [place] [address] [place], [place] [phone] documented as of this encounter Visit Diagnoses Not on filedocumented in this encounter Care Teams Technical Asst Relationship Specialty Start Date End Date Elsy Woods MD [address] [place] [address] [place] [address] PCP - General Family Medicine 02/17/24 documented as of this encounter
--- OUTSIDE RECORDS SUMMARY | 2025-08-02 10:38 | XMS_ITS | Clinical Summary ---
Author Organization [facility] Address [address] [place] [address] Care Team Providers Care Clinical Research Physician Name Role Phone Elsy Woods MD Primary Care Provider [phone] Allergies Active Allergy Reactions Criticality Noted Date Comments Ketorolac 07/02/2024 Morphine 07/02/2024 Penicillins 07/02/2024 Tramadol 07/02/2024 Medications linaCLOtide (Linzess) 145 MCG capsule Take 145 mcg by mouth in the morning. Take before meals. Do not crush or chew. Active lamoTRIgine (LaMICtal) 100 MG tablet Take 25 mg by mouth Daily Active albuterol HFA 90 mcg/act inhaler Inhale 2 puffs every 4 (four) hours if needed for wheezing Active guaiFENesin (Mucinex) 600 MG 12 hr tablet Take 600 mg by mouth in the morning and 600 mg before bedtime. Every 12 hrs. Active famotidine (Pepcid) 40 MG tablet Take 40 mg by mouth Daily Active DULoxetine (Cymbalta) [address] capsule Take 30 mg by mouth Daily Do not crush or chew. Active fluticasone (Flonase) 50 MCG/ACT nasal spray Administer 1 spray into each nostril Daily Shake gently. Before first use, prime pump. After use, clean tip and replace cap. Active sucralfate (Carafate) 1 GM/10ML suspension Take 1 g by mouth in the morning and 1 g in the evening. Take with meals. Active atorvastatin (Lipitor) 20 MG tablet Take 20 mg by mouth Daily Active cholecalciferol (Vitamin D-3) 1.25 MG (91719 UT) capsule Take 50,000 Units by mouth 1 (one) time per week Active omeprazole (PriLOSEC) [address] capsule Take 40 mg by mouth in the morning. Take before meals. Do not crush or chew. Active cyclobenzaprine (Flexeril) 10 MG tablet Take 10 mg by mouth in the morning and 10 mg before bedtime. Active ondansetron (Zofran) 4 MG tablet Take 4 mg by mouth every 8 (eight) hours if needed for nausea Active ibuprofen 800 MG tablet Take 800 mg by mouth 3 (three) times a day as needed 5 Active hydrOXYzine HCl (Atarax) 25 MG tablet TAKE 1 TABLET BY MOUTH ONCE DAILY AT NIGHT NEEDED FOR ITCHING Active hydroCHLOROthia zide (HYDRODiuril) 25 MG tablet Take 25 mg by mouth in the morning. 5 Active fluocinolone (DermOtic) 0.01 % ear dropsIndication s: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 Administer 5 drops into each ear in the morning and 5 drops before bedtime. Do all this for 7 days. 20 mL 5 08/02/20 25 Active Active Problems Problem Noted Date Diagnosed Date Degeneration of intervertebral disc of lumbosacr al region 05/17/2025 HNP (herniated nucleus pulposus), lumbar 025 Lumbar radiculopathy 05/17/2025 Neuroforaminal stenosis of lumbar spine 05/17/20 25 Thyroid nodule 04/07/2025 Age-related osteoporosis wit hout current pathological fracture 04/26/2024 Overview (05/15/2025): DEXA 04/18/2024 Spine: Average bone mineral density is 0.837g/cm2 T-score: -2.9 Hip Lowest bone mineral density is within the femoral neck, 0.686 g/cm2 T-score: -2.5 -needs to schedule visit in office or through [facility] to discuss diagnosis and treatment options Kyphoscoliosis 10/08/2021 Overview (05/15/2025): Mild Bereavement 08/26/2021 Multinodular goiter (nontoxic) 01/19/2021 Anxiety with somatization 12/03/2020 Generalized anxiety disorder with panic attacks 12/03/2020 Immunosuppression due to drug therapy 09/01/2020 Overview (05/15/2025): Humira Panic attack 09/01/2020 Herniated disc, cervical 10/07/2019 Herniated lumbar intervertebral disc 09/29/2018 Overview (05/15/2025): MRI Lumbar: Mild right foraminal stenosis at L4-L5 due to a small foraminal disc protrusion Likely causing symptoms, ?neurogenic claudication Spine referral information provided Continue NSAID, baclofen, duloxetine Try lyrica (previously did not tolerate gabapentin) Resume PT Myelopathy 09/09/2018 Other hyperlipidemia 08/17/2018 Moderate persistent asthma without complication 08/16/2018 Tobacco dependence 08/16/2018 Therapy 06/29/2018 Cervical radicular pain 05/13/2018 Chronic pain syndrome 05/13/2018 Chronic non-seasonal allergic rhinitis 8 Overview (05/15/2025): Continue flonase, and mucinex prn Add zyrtec. Likely component of ETD Adenoid hypertrophy 11/19/2017 Deviated nasal septum 11/19/2017 Hypertrophy of nasal turbinates 11/19/2017 Inadequate sleep hygiene 08/06/2017 Nose abnormality 08/06/2017 GARY (obstructive sleep apnea) 07/15/2017 Chest pain 06/24/2017 Irritable bowel syndrome with constipation 12/22 Psoriasis 11/19/2016 History of thyroid nodule 03/22/2016 Hepatic steatosis 02/07/2016 Indigestion 02/07/2016 Gastroesophageal reflux disease 01/10/2016 Overview (05/15/2025): With nausea takes PPI and zofran prn Depression 12/28/2015 Hx of bilateral oophorectomy 11/30/2001 Legally blind in left eye, as defined in [place] Encounters Date Type Department Care Team Description 07/26/2025 9:10 AM EDT Office Visit [facility] [place] [facility] [address] [place] [address] [place] [address] Kyay Bartlett MD Multinodular goiter (nontoxic) (Primary Dx); Gastroesophageal reflux disease, unspecified whether esophagitis present; 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 07/26/2025 Bamboo flowsheet [facility] [address] [facility] [address] [place] [address] Kayy Bartlett MD 07/26/2025 Travel 07/19/2025 1:45 PM EDT Clinical Support [facility] [address] [facility] [address] [place] [address] Sheridan Santana CCC-A Sensorineural hearing loss (SNHL) 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 (Primary Dx); Pulsatile tinnitus of both ears; Plugged feeling in ear, bilateral 07/19/2025 Bamboo flowsheet [facility] [address] [facility] [address] [place] [address] Sheridan Santana CCC-A 05/17/2025 10:50 AM EDT Office Visit [facility] [address] [facility] [address] [place] [address] Kayy Bartlett MD Hearing loss, unspecified hearing loss type, unspecified laterality (Primary Dx); Nontoxic multinodular goiter ; LPRD (laryngopharyngeal reflux disease); ETD (Eustachian tube dysfunction), bilateral 05/17/2025 Orders Only [facility] [address] [facility] [address] [place] [address] Unallocated, Noms MD Scott 05/17/2025 Bamboo flowsheet [facility] [address] [facility] [address] [place] [phone] Kayy Bartlett MD 05/17/2025 Travel from Last 3 Months Family History Medical History Relation Name Comments Diabetes Father Hyperlipidemia Father Hypertension Father Diabetes Mother Heart failure Mother Hypertension Mother Relation Name Status Comments Father Alive Mother Social History Tobacco Use Types Packs/Day Years Used Date Smoking Tobacco: Former Cigarettes Smokeless Tobacco: Never Tobacco Cessation:Counseling Given: Not Answered Alcohol Use Standard Drinks/Week Comments Yes 0 (1 standard drink = 0.6 oz pur e alcohol) Occ Comments Unknown Sex and Gender Information Value Date Recorded Sex Assigned at Not on file Legal Sex Female 6:59 PM EDT Gender Identity Not on file Sexual Orientation Not on file Last Filed Vital Signs Vital Sign Reading [...] Mass Index 28.79 07/26/2025 9:13 AM EDT Plan of Treatment Upcoming Encounters Date Type Department Care Team (Late st Contact Info) Description 11/15/2025 1:00 PM EST Office Visit [facility] [address] [facility] [address] [place] [address] Kayy Bartlett MD [address] [facility] [address] [place] [address] Health Maintenance Due Date Last Done Comments CT Colonography 1975 FIT-DNA 1975 FIT 1975 FOBT 1975 Sigmoidoscopy 1975 Pap Smear 1996 Cervical Cancer Screening 2005 HPV/Cotest 2005 Mammogram 2015 Influenza Vaccine (#1) 2025 4, 10/14/2023, 09/12/2022, Additional history exists Colonoscopy 09/16/2026 09/16/2016 Colorectal Cancer Screening 09/16/2026 Procedures Procedure Name Priority Date/Time Associated Diagnosis Comments AUDITORY FUNCTION TESTS Routine 07/19/2025 2:16 PM EDT from Last 3 Months Results * Auditory function tests (07/19/2025 2:16 PM EDT) Narrative Sheridan Santana CCC-Tiffani - 07/19/2025 2:16 PM EDT Right Ear: Normal hearing Left Ear: Mild sensorineural hearing loss at 8K Hz only Sheridan Tiffani Santana CCC-A AUDIOLOGY SERVICES ORDERA BLES Final Result from Last 3 Months Insurance [employer] MEDICARE [place]ICAID [place] Care Teams Clinical Research Physician Relationship Specialty Start Date End Date Elsy Woods MD [address] [place] [address] PCP - General Family Medicine 02/17/24
--- OUTSIDE RECORDS SUMMARY | 2025-08-02 10:38 | XMS_ITS | Encounter Summary ---
Author Organization [facility] Address [address] [place] [address] Care Team Providers Care Capacitor Pack Press Operator Name Role Phone Antwan Woodruff MD Unavailable Don Moya MD Unavailable [phone] Nathaniel Ovalle MD Unavailable [phone] Lianne Mayo DO Unavailable [phone] Karlee Sanchez MD Unavailable [phone] Regina Bright MD Unavailable [phone] Leopoldo Woods TRIM AND BURR OPERATOR-MANUFACTURING MAINTENANCE MANAGER Primary Care Provider [phone] Mason Walls MD Unavailable [phone] Stalcrosaline, Joseph RPh Unavailable Unavailable Ronit Zapata CPhT Unavailable Unavailable Maya Howard Unavailable Unavailable Stalcrosaline, Joseph RPh Unavailable Unavailable Ronit Zapata delivery architect Unavailable Unavailable Maya Howard Unavailable Unavailable Shira Grady DO Unavailable [phone] Mack Vega MD Unavailable Reason for Referral * Diagnostic X-Ray (Routine) - Closed Specialty Diagnoses / Procedures Referred By Contguillermina t Referred To Contact Radiology Diagnoses Dyspepsia RUQ pain Procedures US LIVER/GALL BLADDER/PANCREAS Leopoldo Woods, DAVID-MANUFACTURING MAINTENANCE MANAGER [address] [place] [address] Phone: tel: fax: [facility] [address] [place] [address] Phone: tel: Referral ID Status Reason Start Date Expiration Date Visits Re quested Visits Authorized [id number] Closed 12/03/2022 12/03/2023 1 1 Encounter Details Date Type Department Care Team (Late st Contact Info) Description 12/03/2022 Community Orders [facility] [address] [place] [phone] Leopoldo Woods APRN-CNP [address] [place] [address] Social History Tobacco Use Types Packs/Day Years [...] week 09/22/2022 How often do you attend [facility] or christianity services? Never 09/22/2022 Do you belong to any clubs o r organizations such as christianity groups, unions, fraternal or athletic groups, or [...] care, and heating? Somewhat hard 09/22/2022 [facility] [place] [facility] [employer] [facility] - Occupational Stress [...] 4:38 PM EST Balwinder-Alexandria Funez APRN-CNP * ADL impairment? Answer Date of [...] this encounter Results * US LIVER/GALL BLADDER/PANCREAS (12/04/2022 7:58 AM EST) Anatomical Region Laterality Modality US Abdomen N/A Ultrasound 12/04/2022 8:13 AM EST Narrative 12/04/2022 9:43 AM EST EXAMINATION: US LIVER/GALL BLADDER/PANCREAS 12/04/2022 07:58 AM [...] or evidence of acute cholecystitis. MACRO: None Procedure Note Carl Constantino MD - 12/04/2022 EXAMINATION: US LIVER/GALL BLADDER/PANCREAS 12/04/2022 07:58 AM CLINICAL HISTORY: Reason for Exam: Dyspepsia, RUQ pain ASSOCIATED DIAGNOSIS: Dyspepsia RUQ pain ORDERING PROVIDER: LEOPOLDO WOODS COMPARISON: US GALLBLADDER+BILIARY SYSTEM 06/25/2017, 8:41 AM TECHNIQUE: Ultrasound real time scan with image documentation of the rightupper quadrant including the liver, gallbladder, and pancreas wasperformed. FINDINGS: Liver Craniocaudal length: 15.3 cm. Echogenicity: Mildly increased hepatic echogenicity with decreasedconspicuity of the portal triads, compatible with mild [...] the tailis limited. Other findings None. IMPRESSION: 1. Mild hepatic steatosis without a suspicious hepatic lesion. 2. No cholelithiasis or evidence of acute cholecystitis. MACRO: None Leopoldo Woods TRIM AND BURR OPERATOR-MANUFACTURING MAINTENANCE MANAGER [facility] Final Resu lt documented in this encounter Visit Diagnoses Diagnosis Dyspepsia- Primary Dyspepsia and other specified disorders of function of stomach RUQ pain Abdominal pain, right upper quadrant Dyspepsia Dyspepsia and other specified disorders of function of stomach RUQ pain Abdominal pain, right upper quadrant documented in this encounter Care Teams Capacitor Pack Press Operator Relationship Specialty Start Date End Date Leopoldo Woods, DAVID-MANUFACTURING MAINTENANCE MANAGER [facility] [place] [address] PCP - General Family Medicine 11/12/22 Atnwan Woodruff MD [address] [place] [address] Fellow Gastroenterology 04/22/17 Don Moya MD [address] [place] [address] Physician Orthopaedic Surgery 09/04/20 Nathaniel Ovalle MD [address] [place] [address] Physician Pain Management 09/04/20 Lianne Mayo DO [address] [place] [address] [place] [address] Resident Dermatology 09/04/20 Karlee Sanchez MD [address] [place] [address] [place] [address] Physician Dermatology 05/31/22 Regina Bright MD [address] [place] [address] Physician Dermatology 08/02/22 Mason Walls MD [address] [place] [address] Fellow Gastroenterology 01/03/23 Joseph Alfredo, [address] [address] Pharmacist 03/06/23 05/12/23 Ronit Zapata [facility] Tech Pharmacology and Toxicology 03/06/23 05/12/23 Maya Howard [address] [place] [address] [place] [address] Medication Health And Safety Representative Pharmacology and Toxicology 03/06/23 05/12/[address] [address] Pharmacist 07/22/23 08/28/23 Ronit Zapata [facility] Tech Pharmacology and Toxicology 07/22/23 08/28/23 Maya Howard [address] [place] [address] [place] [address] Medication Health And Safety Representative Pharmacology and Toxicology 07/22/23 08/28/23 Shira Grady DO [address] [place] [address] [place] [address] Physician Dermatology 08/01/23 Mack Vega MD [address] [place] [address] Fellow Gastroenterology 09/05/23 documented as of this encounter
--- OUTSIDE RECORDS SUMMARY | 2025-08-02 10:39 | XMS_ITS | Clinical Summary ---
Author Organization [facility] Address [address] [place] [address] Care Team Providers Care Fibre Composite Technician Name Role Phone Chuck, Elsy HERNANDEZ CNP Primary Care Provider [phone] Source Comments PLEASE NOTE, if this patient is a minor, it may be UNLAWFUL to discuss sensitive information that is contained in these records (such as FAMILY PLANNING, MENTAL HEALTH or SUBSTANCE ABUSE) with the minor patient's parent or other person without the patient's specific authorization.[facility] Allergies Active Allergy Reactions Criticality Noted Date Comments Chlorpheniramine-Pseu doephed 04/07/2025 Morphine Other Severe 01/10/2016 Naproxen Intolerance - Will Not Trigger Allergy Alert Low 07/28/2019 Stomach irritation Penicillin Rash 12/27/2015 Tramadol Nausea and Vomiting 03/20/2016 Medications fluticasone (FLONASE) 50 mcg/actuation nasal sprayIndications:S inus congestion PLACE ONE SPRAY IN EACH NOSTRIL TWICE DAILY 16 g 5 3 Active pregabalin (LYRICA) 25 mg capsuleIndications :Herniated lumbar intervertebral disc Take 1 Capsule by mouth 2 (two) times daily for 30 days 60 Capsule 4 Active omeprazole (PRILOSEC) [address] capsuleIndications :Dyspepsia TAKE ONE CAPSULE BY MOUTH TWICE DAILY NEEDED FOR HEARTBURN OR STOMACH PAIN DO NOT CRUSH OR CHEW 180 Capsule 3 4 Active clobetasoL (TEMOVATE) 0.05 % cream Apply topically twice a day 3 Active tiZANidine (ZANAFLEX) 4 mg tablet Take 1 Tablet by mouth every 6 (six) hours as needed 2 Active blood pressure monitorIndications :Elevated blood pressure reading Use as directed 1 Kit 4 Active hydroCHLOROthiazid e (HYDRODIURIL) 25 mg tabletIndications: Essential hypertension Take 1 Tablet by mouth every morning 90 Tablet 3 4 Active guaiFENesin (MUCINEX) 600 mg Ta12 Take 1 Tablet by mouth 2 (two) times daily as needed (cough, chest congestion) 60 Tablet 4 Active famotidine (PEPCID) 10 mg tabletIndications: Herniated lumbar intervertebral disc Take 1 Tablet by mouth 4 (four) times daily as needed (with dose of ibuprofen) 60 Tablet 5 5 Active ondansetron HCL (ZOFRAN) 4 mg tabletIndications: Dyspepsia Take 1 Tablet by mouth every 8 (eight) hours as needed for nausea 20 Tablet 2 5 Active albuterol HFA 90 mcg/actuation inhalerIndications :Moderate persistent asthma with acute exacerbation ([facility]) Inhale 1-2 Puffs into the lungs every 4 (four) hours as needed for shortness of breath or wheezing 8.5 g 5 5 Active atorvastatin (LIPITOR) 20 mg tabletIndications: Other hyperlipidemia TAKE ONE TABLET BY MOUTH ONCE DAILY 30 Tablet 9 5 Active loratadine (CLARITIN) 10 mg tablet Take 1 Tablet by mouth once daily as needed for allergies 90 Tablet 3 5 Active calcium carbonate (TUMS) 500 mg calcium (1,250 mg) chewable tabletIndications: Age-related osteoporosis without current pathological fracture Place 1 Tablet into mouth, chew and swallow once daily 90 Tablet 3 5 Active cholecalciferol (VITAMIN D3) 50 mcg (2,000 unit) capsuleIndications :Age-related osteoporosis without current pathological fracture Take 1 Capsule by mouth once daily 90 Capsule 3 5 Active DULoxetine (CYMBALTA) [address] capsuleIndications :Herniated lumbar intervertebral disc,Generalized anxiety disorder with panic attacks Take 1 Capsule by mouth once daily 90 Capsule 3 5 Active ibuprofen 800 mg tabletIndications: Herniated lumbar intervertebral disc Take 1 Tablet by mouth 3 (three) times daily as needed for pain 90 Tablet 5 5 Active hydrOXYzine HCL (ATARAX) 25 mg tabletIndications: Itching Take 1 Tablet by mouth nightly at bedtime as needed for itching. 90 Tablet 5 Active Active Problems Problem Noted Date Diagnosed Date Thyroid nodule 04/07/2025 Assessment & Plan (04/27/2025 10:01 AM EDT): Orders: THYROID ULTRASOUND REFERRAL TO ENDOCRINOLOGY Age-related osteoporosis wit hout current pathological fracture 04/26/2024 Overview (04/26/2024): DEXA 04/18/2024 Spine: Average bone mineral density is 0.837g/cm2 T-score: -2.9 Hip Lowest bone mineral density is within the femoral neck, 0.686 g/cm2 T-score: -2.5 -needs to schedule visit in office or through [facility] to discuss diagnosis and treatment options Assessment & Plan (04/27/2025 10:01 AM EDT): Orders: calcium carbonate (TUMS) 500 mg calcium (1,250 mg) chewable tablet; Place 1 Tablet into mouth, chew and swallow once daily cholecalciferol (VITAMIN D3) 50 mcg (2,000 unit) capsule; Take 1 Capsule by mouth once daily Kyphoscoliosis 10/08/2021 Overview (10/08/2021): Mild Bereavement 08/26/2021 Multinodular goiter (nontoxic) 01/19/2021 Generalized anxiety disorder with panic attacks 12/03/2020 Assessment & Plan (04/27/2025 10:01 AM EDT): Orders: DULoxetine (CYMBALTA) [address] capsule; Take 1 Capsule by mouth once daily Anxiety with somatization 12/03/2020 Panic attack 09/01/2020 Immunosuppression due to drug therapy ([facility]) 09/01/2020 Overview (09/01/2020): Humira Herniated lumbar intervertebral disc 09/29/2018 Overview (06/09/2024): MRI Lumbar: Mild right foraminal stenosis at L4-L5 due to a small foraminal disc protrusion Likely causing symptoms, ?neurogenic claudication Spine referral information provided Continue NSAID, baclofen, duloxetine Try lyrica (previously did not tolerate gabapentin) Resume PT Assessment & Plan (04/27/2025 10:01 AM EDT): Orders: DULoxetine (CYMBALTA) [address] capsule; Take 1 Capsule by mouth once daily ibuprofen 800 mg tablet; Take 1 Tablet by mouth 3 (three) times daily as needed for pain Other hyperlipidemia 08/17/2018 Moderate persistent asthma without complication ([facility]) 08/16/2018 Tobacco dependence 08/16/2018 Chronic non-seasonal allergic rhinitis 8 Overview (06/09/2024): Continue flonase, and mucinex prn Add zyrtec. Likely component of ETD Assessment & Plan (04/27/2025 10:01 AM EDT): GARY (obstructive sleep apnea) 07/15/2017 Hiatal hernia 07/15/2017 Irritable bowel syndrome with constipation 12/22 Psoriasis 11/19/2016 History of thyroid nodule 03/22/2016 Hepatic steatosis 02/07/2016 GERD 01/10/2016 Overview (06/09/2024): With nausea takes PPI and zofran prn Depression 12/28/2015 BRITTNI with bilateral oophorectomy 11/30/2001 Legally blind in left eye, as defined in [place] Resolved Problems Problem Noted Date Diagnosed Date Resolved Date Sciatica of right side 07/15/201706/09 Dyspepsia 02/07/2016 06/09/2024 Asthma ([facility]) 12/28/2015 01/10/2016 Immunizations Immunization Administration Dates Next Due Flu, Cell Culture based, Pre servative Free, 6m+, Flucelvax 10/14/2023,09/12/2022 Flu, Preservative Free 11/06/2021,2019,09/21/2019,08/16,12/23/2017,08/18/2016 INFLUENZA, SEASONAL, INJECTABLE 08/31/2020 Influenza (FLUCELVAX),injectable,mdck,pf 10/05/2024 MODERNA COVID-19 VACCINE BIV ALENT, BLUE CAP, 6M+ 01/06/2023 Moderna COVID-19 (Spikevax), Mrna, Lnp-s, Pf, 50 Mcg/0.5 Ml, 12yr+ 10/05/2024,10/14/2023 Moderna COVID-19 Vaccine, re d cap blue label, 12+ Primary Series 08/28/2021,03/27/2021,02/27/2021 PNEUMOCOCCAL CONJUGATE PCV 13 09/21/2019 PNEUMOCOCCAL POLYSACCHARIDE PPV23 (Pneumovax 23) 11/06/2021,01/10/2016 TDAP 01/10/2016 Family History Medical History Relation Name Comments Other (See Comments) Brother 2 Acciden noy at 5 months Other (See Comments) Daughter Yenifer MVA, ag e 15 Hypertension Father Cancer Mother unknown Diabetes Mother Hypertension Mother Kidney disease Mother Thyroid Disease Mother Cervical Myofascial Pain Syndrome Sister Cervical Radiculitis Sister Diabetes Sister Relation Name Status Comments Brother 1 Alive Brother 2 Daughter Yenifer (Age 15) June 16, 2 009 Father Alive Mother Alive Sister Alive Social History Tobacco Use Types Packs/Day Years Used Date Smoking Tobacco: Former Cigarettes 0.5 24 1 01/12/1998 - 11/11/2022 Smokeless Tobacco: Never Tobacco Cessation:Counseling Given: Not Answered Alcohol Use Standard Drinks/Week Comments No 0 (1 standard drink = 0.6 oz pur e alcohol) Social Connections Answer Date Recorded How often do you see or talk to people that you care about and feel close to? (For example: talking to friends on phone, visiting friends or family, going to confucianist or club meetings) 1 04/01/2025 Financial Resource Strain Answer Date R ecorded Hard to pay for: Food 2 04/01/2025 Stress Answer Date Recorded Do you feel these kinds of stress these days? 2 04/01/2025 Physical Activity Answer Date Recorded Physical Activity 0 07/19/2019 Food Insecurity Answer Date Recorded Hard to pay for: Food 2 04/01/2025 Transportation Needs Answer Date Record ed Hard to pay for: Transportation 1 04/01/2025 Housing Stability Answer Date Recorded Hard to pay for: Rent/Mortgage payment 1 04/01/2025 Safety and Environment Answer Date Woody rded Safety 0 07/19/2019 Utilities Answer Date Recorded Hard to pay for: Utilities 1 04/01 Employment Answer Date Recorded Are you currently employed? 1 01/2025 Comments No Sex and Gender Information Value Date Recorded Sex Assigned at Female 05/14/2017 12:09 PM PDT Legal Sex Female 2:07 PM PST Gender Identity Female 05/14/2017 12:09 PM PDT Sexual Orientation Straight 05/14/2017 12 :09 PM PDT Occupation Industry Job Start Date Job End Date Disability Not on file Not on file Not on file Last Filed Vital Signs Vital Sign Reading Time Taken Comments Blood Pressure 131/86 04/07/2025 11:24 AM EDT Pulse 85 04/07/2025 11:24 AM EDT Temperature 35.8 C (96.5 F) 04/07/2025 11:24 AM EDT Respiratory Rate 18 04/07/2025 11:24 AM EDT Oxygen Saturation 96% 04/07/2025 11:24 AM EDT Inhaled Oxygen Concentration - - Weight 78.6 kg (173 lb 3.2 oz) 04/07/2025 11:24 AM EDT Height 162.6 cm (5' 4 ) 08/10/2023 12:25 PM EDT Body Mass Index 29.73 08/10/2023 12:25 PM EDT Plan of Treatment Health Maintenance Due Date Last Done Comments Anxiety Screening 1975 HPV Screening 1975 Pap + HPV 1975 Medicare Annual Wellness Visit 1993 Imm-Zoster, Recombinant (1 of 2) 1994 CT Colonography 2020 FIT/gFOBT 2020 Fecal DNA 2020 Flexible Sigmoidoscopy 2020 Tobacco Cessation Counseling (#1) 05/14/2024 Depression Monitoring 01/05/2025 10/05/2024 , 08/10/2023, 05/15/2023, Additional history exists Yti-QVSSJ-03 (7 - Moderna [facility] season) 07/31/2025 10/05/2024, 10/14/2023, 01/06/2023, Additional history exists Imm-Influenza (#1) 2025 10/05/2024, 1 12/14/2022, 09/12/2022, Additional history exists Lipid Screening 10/05/2025 10/05/2024, 04/30, 09/18/2020, Additional history exists Imm-DTaP/Tdap/Td (2 - Td or Tdap) 01/10/2026 016 Tobacco Screening 04/07/2026 04/07/2025 Colonoscopy 09/16/2026 09/16/2016 Colorectal Cancer Screening 09/16/2026 Imm-Pneumococcal 50+ (4 of 4 - PCV20 or PCV21) 11/06/2026 11/06/2021, 09/21/2019, 01/10/2016 Breast Cancer Screening (Mammogram) 04/20/2027 04/20/2025 Diabetes Screening 10/05/2027 10/05/2024, 1 12/14/2022, 08/08/2023, Additional history exists HIV Screening Completed 05/05/2018 Hepatitis C Screening Completed 02/28/2019 , 02/28/2019, 02/21/2016 Alcohol and Drug Screen Completed 04/07/20, 04/11/2024, 01/06/2023, Additional history exists Cervical Ablation/Cold-Knife Conization Discontinued Cervical Cancer Screening Discontinued Cervical Cryotherapy Discontinued Colposcopy Discontinued Endometrial Biopsy Discontinued Excision/Leep Discontinued HPV Genotyping Discontinued Imm-Hepatitis B Discontinued Pap Smear Discontinued Vaginal Pap Discontinued Vulvoscopy Discontinued Goals Goal Patient Goal Type Associated Problems Recent Progress Patient-Stated? Author Patient taking medication as prescribed Medication On track( 018 12:51 PM PDT) No Radha Hameed MA Procedures Procedure Name Priority Date/Time Associated Diagnosis Comments HISTORIC MAMMOGRAM 04/20/2025 3:00 AM EDT BASIC METABOLIC PANEL CALCIUM TOTAL Routine 10/05/2024 12:59 PM EST Elevated blood pressure reading LIPID PANEL Routine 10/05/2024 12:59 PM EST Encounter for screening for cardiovascular disorders HIV 1/2 AG & AB W/RFLX (4TH GEN) Routine 05/05/2018 11:47 AM EDT Screening for HIV (human immunodeficiency virus) HEPATITIS C AB W/RFLX HCV RNA, QT, RT PCR Routine 02/21/2016 3:58 PM EDT Hepatic steatosis from Last 3 Months or Most Recently Relevant to Health Maintenance Results * HISTORIC MAMMOGRAM (04/20/2025 3:00 AM EDT) 04/20/2025 3:00 AM EDT Elsy Woods APRN, CNP IMG MAMMO Final Resu lt * Lipid Panel (10/05/2024 12:59 PM EST) CHOLESTEROL 174 <200 mg/dL [facility] HDL CHOLESTEROL 64 > OR = 50 mg/dL [facility] TRIGLYCERIDES 142 <150 mg/dL [facility] LDL CHOL, CALCULATED 86 mg/dL (calc) [facility] Comment: Reference range: <100 Desirable range <100 mg/dL for primary prevention; <70 mg/dL for patients with CHD or diabetic patients with > or = 2 CHD risk factors. LDL-C is now calculated using the Juvencio-Wayne calculation, which is a validated novel method providing better accuracy than the Friedewald equation in the estimation of LDL-C. Juvencio SS et al. JOSHUA. 2013;310(19): 2166-9100 (http://education.Veosearch.Akella/faq/TYH489) CHOLESTEROL/HDL RATIO 2.7 <5.0 (calc) [facility] NON-HDL CHOLESTEROL 110 <130 mg/dL (calc) [facility] Comment: For patients with diabetes plus 1 major ASCVD risk factor, treating to a non-HDL-C goal of <100 mg/dL (LDL-C of <70 mg/dL) is considered a therapeutic option. Blood Blood / Unknown 10/05/2024 1 2:59 PM EST 10/05/2024 2:58 PM EST Elsy Woods APRN,TIRE RETREADER LAB - BLOOD DRAW Final Res ult [id number] [address], [place] * BMP (10/05/2024 12:59 PM EST) GLUCOSE 90 65 - 99 mg/dL [facility] Comment: Fasting reference interval UREA NITROGEN 18 7 - 25 mg/dL [facility] CREATININE 0.91 0.50 - 0.99 mg/dL [facility] EGFR 77 > OR = 60 mL/min/1. 73m2 [facility] BUN/CREATININE RATIO SEE NOTE: 6 - 22 (calc) [facility] Comment: Not Reported: BUN and Creatinine are within reference range. SODIUM 139 135 - 146 mmol/L [facility] POTASSIUM 4.1 3.5 - 5.3 mmol/L [facility] CHLORIDE 105 98 - 110 mmol/L [facility] CARBON DIOXIDE 28 20 - 32 mmol/L [facility] CALCIUM 10.0 8.6 - 10.2 mg/dL [facility] Blood Blood / Unknown 10/05/2024 1 2:59 PM EST 10/05/2024 2:58 PM EST Elsy Woods APRN,[facility] [facility] LAB - BLOOD DRAW Edited Re sult - Final Performing Organization Address City/[facility]/ZIP Co de Phone Number [facility] [address] [place] [address] * HIV 1/2 AG & AB w/ Reflex (4th Gen) (05/05/2018 11:47 AM EDT) HIV AG/AB, 4TH GEN NON-REACT ARUNA NON-REACT ARUNA [facility] Comment: HIV-1 antigen and HIV-1/HIV-2 antibodies were not detected. There is no laboratory evidence of HIV infection. PLEASE NOTE: This information has been disclosed to you from records whose confidentiality may be protected by state law. If your state requires such protection, then the state law prohibits you from making any further disclosure of the information without the specific written consent of the person to whom it pertains, or as otherwise permitted by law. A general authorization for the release of medical or other information is NOT sufficient for this purpose. For additional information please refer to http://education.SleepOut/faq/ISQ836 (This link is being provided for informational/ educational purposes only.) The performance of this assay has not been clinically validated in patients less than 2 years old. Blood specimen (specimen) Blood / Unknown 05/05/2018 11:47 AM EDT 05/05/2018 1:54 PM EDT Urvashi Hale MD LAB - BLOOD DRAW Edited Result - Final Performing Organization Address [facility]/ZIP Co de Phone Number [facility] [address] [address] * HEPATITIS C AB W/RFLX HCV RNA, QT, RT PCR (02/21/2016 3:58 PM EDT) HEPATITIS C AB NON-REACTI VE NON-REACT ARUNA [facility] [place] SIGNAL TO CUTOFF RATIO 0.07 LESS THAN 1.0 [facility] [place] 02/21/2016 3:58 PM EDT 02/22/2016 6:10 AM EDT Nyasia Galvan NP LAB - BLOOD DRAW Final Res ult Performing Organization Address [facility]/ZIP Co de Phone Number [facility] [address] [address] from Last 3 Months or Most Recently Relevant to Health Maintenance Insurance [facility] MEDICARE COMPLETE ([facility]) Care Teams Fibre Composite Technician Relationship Specialty Start Date End Date Elsy Woods APRN,RACHEL [address] [place], [place] [phone] PCP - General Family Medicine, RN PICU 06/11/22
--- OUTSIDE RECORDS SUMMARY | 2025-08-02 10:39 | XMS_ITS | Encounter Summary ---
Author Organization [facility] Address [address] [place] [address] Care Team Providers Care Jawbone Puller Name Role Phone Elsy Woods MD Primary Care Provider [phone] Encounter Details Date Type Department Care Team (Late st Contact Info) Description 02/17/2024 Clinisync Result Encounter [facility] External Department Unsolicited Azul [place], HAND SEWER Social History Tobacco Use Types Packs/Day Years [...] EST Office Visit [facility] [address] [facility] [address] [place] [address] Kayy Bartlett MD [address] [facility] [address] [place] [address] documented as of this encounter Procedures Procedure Name Priority Date/Time Associated Diagnosis Comments MRI BRAIN W/ + W/O CONTRAST 02/17/2024 2:36 PM EDT documented in this encounter Results * MRI BRAIN W/ + W/O CONTRAST (02/17/2024 2:36 PM EDT) Anatomical Region Laterality Modality Other 02/17/2024 2:36 PM EDT Narrative 02/17/2024 4:53 PM EDT Exam Date/Time: 02/17/2024 15:45 EDT Reason for [...] of contrast. Diffusion perfusion imaging was obtained. High- resolution imaging was performed through the region of [...] Comments Vueway Contrast amount in ml's: 7.5 Procedure Note Radiology, Radiologist, - 02/17/2024 Exam Date/Time: 02/17/2024 15:45 EDT Reason for Exam: G51.0 Report IMPRESSION: There are no acute intracranial changes, no evidence ofischemia or hemorrhage. There are no regions of signal abnormality there is noabnormal enhancement.. EXAMINATION: MRI Brain w/ + w/o Contrast CLINICAL HISTORY: G51.0 COMPARISONS: NONE AVAILABLE TECHNIQUE: Multiplanar multisequence images of the brain were obtained before andafter IV administration of contrast. Diffusion perfusion imaging was obtained.High- resolution imaging was performed through the region of the cerebellopontine anglesand IACs. FINDINGS: There are no extra-axial collections. There is no evidence of hemorrhage.There are no areas of signal abnormality on perfusion diffusion imaging to suggestischemia. The susceptibility images do not demonstrate evidence of hemosiderindeposition within the brain parenchyma or the leptomeninges. There is preservation of the lopez-white matter differentiation. There areno areas of signal abnormality within the brain parenchyma or the posterior fossa tosuggest lesion. The sulci and ventricles are within normal limits without evidenceof hydrocephalus. The midline structures are intact, the corpus callosum is within normallimits. The region of the pineal gland and the sella turcica are unremarkable. There are no space-occupying lesions in the posterior fossa. The basilarcisterns are patent. The craniocervical junction is unremarkable. High-resolution imaging through the region of the cerebellopontine anglesand internal auditory canals demonstrates no space-occupying lesions. Thevestibular cochlear nerves are within normal limits. The bilateral inner earstructures including the cochlea and the semicircular canals are unremarkable. The visualized portions of the orbits are within normal limits, the globesare intact. The visualized portions of the paranasal sinuses are within normallimits. The calvarium and soft tissues are unremarkable. Report Ordering Provider: Azul [place] FINAL REPORT Dictated: 02/17/2024 4:50 pm Mitchell Gutierrez MD, V. Signed (Electronic Signature): 02/17/2024 4:50 pm Signed by: Mitchell Gutierrez MD, V. Transcribed by: CHERIE Technologist: NATHALIE Technical Comments Vueway Contrast amount in ml's: 7.5 us Azul C [place] HAND SEWER [facility] Final R esult documented in this encounter Visit Diagnoses Not on filedocumented in this encounter Care Teams Jawbone Puller Relationship Specialty Start Date End Date Elsy Woods MD [address] [place], [place] [phone] PCP - General Family Medicine 02/17/24 documented as of this encounter
--- OUTSIDE RECORDS SUMMARY | 2025-08-02 10:39 | XMS_ITS | Encounter Summary ---
Author Organization [facility] Address [address] [place] [address] Care Team Providers Care Template Storage Clerk Name Role Phone Antwan Woodruff MD Unavailable Radha Negrete MD Primary Care Provider [phone] Don Moya MD Unavailable [phone] Nathaniel Ovalle MD Unavailable [phone] Lianne Mayo DO Unavailable [phone] Karlee Sanchez MD Unavailable [phone] Regina Bright MD Unavailable [phone] Elsy Woods SOIL CONSERVATION TEACHER-[facility] Primary Care Provider + [phone] Mason Walls MD Unavailable [phone] Stashantell Joseph [facility] Unavailable Unavailable Ronit Zapata baking assistant Unavailable Unavailable Maya Howard Unavailable Unavailable Stashantell Joseph RPh Unavailable Unavailable Ronit Zapata CPhT Unavailable Unavailable Maya Howard Unavailable Unavailable Shira Grady DO Unavailable [phone] Mack Vega MD Unavailable Reason for Referral * Radiology (Routine) - Closed Specialty Diagnoses / Procedures Referred By Contac t Referred To Contact Radiology Diagnoses Thyroid nodule, uninodular Procedures US THYROID/NECK SOFT TISSUE Urvashi Hale MD [address] [place] [address] Phone: tel: fax: [facility] [address] [place] [address] Phone: tel: Referral ID Status Reason Start Date Expiration Date Visits Re quested Visits Authorized [id number] Closed 03/10/2019 09/06/2019 1 1 Encounter Details Date Type Department Care Team (Late st Contact Info) Description 03/10/2019 Community Orders [facility] [address] [place] [address] Urvashi Hale MD [address] [id number] Social History Tobacco Use Types Packs/Day Years [...] Date/Time Associated Diagnosis Comments US THYROID Routine 04/09/2019 7:58 AM EDT Thyroid nodule, uninodular documented in this encounter Results * US THYROID/NECK SOFT TISSUE (04/09/2019 7:58 AM EDT) Anatomical Region Laterality Modality N/A Other 04/09/2019 7:58 AM EDT Narrative 04/09/2019 8:35 AM EDT EXAMINATION: US THYROID/NECK/HEAD SOFT TISSUE CLINICAL HISTORY: Thyroid nodule, uninodular TECHNOLOGISTS NOTE: (Left prior lobe biospy per pt 6yrs ago- benign OSH) Not on meds for thyroid COMPARISON: November 02, 2018 TECHNIQUE: Ultrasound real time scan with image documentation of the thyroid was performed FINDINGS: The right lobe of the thyroid measures approximately 4.3 x 1.5 x 1.6 cm in sagittal, AP, and transverse dimensions. The thyroid isthmus measures approximately 0.3 cm in AP dimension. The left lobe of the thyroid measures approximately 4.5 x 1.6 x 1.4 cm in sagittal, AP, and transverse dimensions. Solid nodules are seen in the right lobe of the thyroid, the largest of which measures approximately 1.0 cm in greatest dimension. A thyroid nodule in the left lobe with peripheral calcifications measures approximately 0.8 cm in greatest dimension, probably correlating with the area of interest on prior CT. Normal flow is seen in the thyroid. Mild heterogeneity is seen of the thyroid. No lymphadenopathy is seen in the neck. IMPRESSION: Thyroid nodules which do not meet sonographic criteria for ultrasound-guided biopsy. MACRO: None Procedure Note Makayla Cooley MD - 04/09/2019 EXAMINATION: US THYROID/NECK/HEAD SOFT TISSUE CLINICAL HISTORY: Thyroid nodule, uninodular TECHNOLOGISTS NOTE: (Left prior lobe biospy per pt 6yrs ago- benign OSH) Not on meds for thyroid COMPARISON: November 02, 2018 TECHNIQUE: Ultrasound real time scan with image documentation of the thyroid was performed FINDINGS: The right lobe of the thyroid measures approximately 4.3 x 1.5 x 1.6 cm in sagittal, AP, and transverse dimensions. The thyroid isthmus measures approximately 0.3 cm in AP dimension. The left lobe of the thyroid measures approximately 4.5 x 1.6 x 1.4 cm in sagittal, AP, and transverse dimensions. Solid nodules are seen in the right lobe of the thyroid, the largest of which measures approximately 1.0 cm in greatest dimension. A thyroid nodule in the left lobe with peripheral calcifications measures approximately 0.8 cm in greatest dimension, probably correlating with the area of interest on prior CT. Normal flow is seen in the thyroid. Mild heterogeneity is seen of the thyroid. No lymphadenopathy is seen in the neck. IMPRESSION: Thyroid nodules which do not meet sonographic criteria for ultrasound-guided biopsy. MACRO: None us Urvashi Hale MD ULTRASOUND Final Result documented in this encounter Visit Diagnoses Diagnosis Thyroid nodule, uninodular- Primary documented in this encounter Care Teams Template Storage Clerk Relationship Specialty Start Date End Date Radha Negrete MD [address] [place], [place] [id number] PCP - General Pediatrics 12/08/17 11/11/22 Elsy Woods APRN-AMERICAN STUDIES PROFESSOR [address] [place] [id number] PCP - General Family Medicine 11/12/22 Antwan Woodruff MD [address] [place] [id number] Fellow Gastroenterology 04/22/17 Don Moya MD [address] [place] [address] [id number] Physician Orthopaedic Surgery 09/04/20 Nathaniel Ovalle MD [address] [place] [address] Physician Pain Management 09/04/20 Lianne Mayo DO [address] [place] [address] [place] [address] Resident Dermatology 09/04/20 Karlee Sanchez MD [address] [place] [address] [place] [address] Physician Dermatology 05/31/22 Regina Bright MD [address] [place] [address] Physician Dermatology 08/02/22 Mason Walls MD [address] [place] [address] Fellow Gastroenterology 01/03/23 Joseph Alfredo [address] [address] Pharmacist 03/06/23 05/12/23 Ronit Zapata, [facility] Tech Pharmacology and Toxicology 03/06/23 05/12/23 Maya Howard [address] [place] [address] [place] [address] Medication Adult Literacy Teacher Pharmacology and Toxicology 03/06/23 05/12/[address] [address] Pharmacist 07/22/23 08/28/23 Ronit Zapata, [facility] Tech Pharmacology and Toxicology 07/22/23 08/28/23 Maya Howard [address] [place] [address] [place] [address] Medication Adult Literacy Teacher Pharmacology and Toxicology 07/22/23 08/28/23 Shira Grady DO [address] [place] [address] [place] [address] Physician Dermatology 08/01/23 Mack Vega MD [address] [place] [address] Fellow Gastroenterology 09/05/23 documented as of this encounter
--- NOTE | 2025-08-02 10:41 | ED.GENADUL1 ---
HPI HPI - General Adult General Chief complaint: Extremity Problem, Nontraumatic Stated complaint: UPPER EXTREMITY PAIN/SWELLING Time Seen by Provider: 08/02/25 10:16 Source: patient Mode of arrival: walk-in Limitations: no limitations History of Present Illness HPI narrative: Patient is a 50-year-old female presenting to the emergency department for evaluation of right elbow pain. Patient states her symptoms started 2 weeks ago. She states the pain is getting progressively worse. It was not sudden in onset. She denies any injuries or overuse injuries that she can identify. She is not currently employed. She denies any recent heavy lifting or strenuous physical activity. She states the pain is located on the outside of her right elbow and radiates into her 2nd and 3rd digits. 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 She has been taking ibuprofen twice a day for the last 2 weeks without much relief. She denies any new or significant pain in her neck or shoulder. She denies any numbness or tingling throughout the arm or hand. No weakness in the right arm/hand. Related Data Home Medications ?Medication ?Instructions ?Recorded ?Confirmed albuterol sulfate 90 mcg/actuation 2 puff inhalation Q4H PRN 07/29/23 08/15/24 aerosol inhaler shortness of breath or wheezing atorvastatin 20 mg tablet 20 mg PO DAILY 07/29/23 08/15/24 duloxetine 30 mg capsule,delayed 60 mg PO DAILY 07/29/23 08/15/24 release omeprazole 40 mg capsule,delayed 40 mg PO BID 04/04/24 08/15/24 release baclofen 10 mg tablet 10 mg PO TID 07/25/24 08/15/24 zgygclzhfxhuhhv-tdcgjiavnuyphcl-ZL 5 ml PO Q6H PRN sinus symptoms 07/25/24 08/15/24 2 mg-30 mg-10 mg/5 mL oral syrup calcium carbonate 500 mg PO DAILY 07/25/24 08/15/24 cetirizine 10 mg tablet (Zyrtec) 10 mg PO DAILY PRN allergy symptoms 07/25/24 08/15/24 cholecalciferol (vitamin D3) 50 2,000 unit PO DAILY 07/25/24 08/15/24 mcg (2,000 unit) capsule famotidine 10 mg tablet (Pepcid AC) 20 mg PO Q6H 07/25/24 08/15/24 fluticasone propionate 110 2 inh inhalation BID 07/25/24 08/15/24 mcg/actuation HFA aerosol inhaler fluticasone propionate 50 2 spray intranasal DAILY PRN 07/25/24 08/15/24 mcg/actuation nasal allergy symptoms spray,suspension ibuprofen 800 mg tablet 800 mg PO Q6H 07/25/24 08/15/24 lamotrigine 100 mg tablet 100 mg PO DAILY 07/25/24 08/15/24 ondansetron 4 mg disintegrating 4 mg PO Q8H 07/25/24 08/15/24 tablet pregabalin 25 mg capsule 25 mg PO BID 07/25/24 08/15/24 sucralfate 1 gram tablet 1 g PO Q6H 07/25/24 08/15/24 Previous Rx's ?Medication ?Instructions ?Recorded prednisone 20 mg tablet 20 mg PO DAILY 5 days #5 tabs 08/02/25 Allergies Allergy/AdvReac Type Severity Reaction Status Date / Time amoxicillin Allergy Severe Unknown Verified 08/02/25 10:19 morphine Allergy Severe Unknown Verified 08/02/25 10:19 naproxen Allergy Severe Nausea Verified 08/02/25 10:19 Penicillins Allergy Severe Unknown Verified 08/02/25 10:19 ketorolac (From Toradol) AdvReac Mild Abdominal Verified 08/02/25 10:19 Pain Opioid HPI Opioid Management Most Recent Opioid Data: Last Pain Scale 9 08/15/24, 10:59 Review of Systems ROS Status of ROS 10 or more systems reviewed and unremarkable except as noted in history and below [facility] Social History Little interest or pleasure in doing things: not at all Feeling down, depressed, or hopeless: not at all Exam Narrative Exam Narrative: CONSTITUTIONAL: Well-appearing, answering questions and following commands appropriately SKIN: Was warm and dry, no overlying skin changes in the right upper extremity. EYES: Sclerae white. EARS, NOSE, THROAT: Moist oral mucosa. RESPIRATORY: Nonlabored respirations. CARDIOVASCULAR: Normal rate and regular rhythm. 2+ radial pulse on the right. GASTROINTESTINAL: Abdomen is nondistended. MUSCULOSKELETAL: There is tenderness to palpation of the right lateral epicondyle. She has full range of motion in the right elbow, wrist, and throughout all the fingers of the right hand. She is able make an okay sign, peace sign, and cross her fingers on the right. There is no upper extremity edema. NEUROLOGIC: 5/5 strength with R wrist/elbow flexion & extension, thumb opposition, and flexion/extension of all five fingers. Sensation intact light touch in the radial/ulnar/median distribution of the right hand. Constitutional Vital Signs, click to edit/add: Last Vital Signs Temp 98.0 F 08/02/25 10:29 Pulse 93 H 08/02/25 10:19 Resp 18 08/02/25 10:19 BP 108/90 08/02/25 10:19 Pulse Ox 97 08/02/25 10:19 O2 Del Method Room Air 08/02/25 10:19 Course Vital Signs Vital signs: Vital Signs Pulse Rate 93 H 08/02/25 10:19 Respiratory Rate 18 08/02/25 10:19 Blood Pressure 108/90 08/02/25 10:19 Pulse Oximetry 97 08/02/25 10:19 Oxygen Delivery Method Room Air 08/02/25 10:19 Temperature 98.0 F 08/02/25 10:29 Pulse Rate 93 H 08/02/25 10:19 Respiratory Rate 18 08/02/25 10:19 Blood Pressure 108/90 08/02/25 10:19 Pulse Oximetry 97 08/02/25 10:19 Oxygen Delivery Method Room Air 08/02/25 10:19 Medical Decision Making MDM Narrative Medical decision making narrative: My clinical impression is that the patient's symptoms are secondary to lateral epicondylitis/tennis elbow. No neurologic deficits or neck pain to suggest myelopathy or cervical radiculopathy. This is likely peripheral in nature. She does have bony tenderness, therefore an x-ray was obtained to rule out possible underlying fracture though she has no history of trauma. X-rays of the left elbow independently reviewed and interpreted by myself and radiology demonstrate no acute osseous abnormalities I do believe the patient is stable for discharge at this time. They were instructed to follow up with her PCP for further care. Return precautions were given including any new or worsening symptoms. They were given a prescription for prednisone 20 mg x 5 days. She was also instructed to wear an elbow brace for support. Patient understands and agrees to the plan. FINAL IMPRESSION: #Acute right lateral epicondylitis DISPOSITION: Discharged home CONDITION: Good Imaging Data left elbow xray: Attestation: I personally reviewed and interpreted this imaging study as follows: Radiologist's impression: ITS Impressions Elbow X-Ray 08/02/25 10:28 IMPRESSION: NO ACUTE BONY FINDINGS. Impression dictated by: Katie Romero M.D. 08/02/2025 10:49 AM Dictation Location: [place] [address] Electronically authenticated by: [id number] Y Date: 08/02/2025 10:49 Discharge Plan Discharge Chief Complaint: Extremity Problem, Nontraumatic Clinical Impression: Epicondylitis, lateral (tennis elbow) Qualifiers: Laterality: right Qualified Code(s): M77.11 - Lateral epicondylitis, right elbow Patient Disposition: Home, Self-Care Time of Disposition Decision: 10:43 Condition: Good Mode of Transportation: Private Vehicle Prescriptions / Home Meds: New prednisone 20 mg tablet 20 mg PO DAILY 5 Days Qty: 5 0RF No Action albuterol sulfate 90 mcg/actuation HFA aerosol inhaler 2 puff INHALATION Q4H PRN (Reason: shortness of breath or wheezing) atorvastatin 20 mg tablet 20 mg PO DAILY duloxetine 30 mg capsule,delayed release(DR/EC) 60 mg PO DAILY fluticasone propionate 110 mcg/actuation HFA aerosol inhaler 2 inh inhalation BID lamotrigine 100 mg tablet 100 mg PO DAILY sucralfate 1 gram tablet 1 g PO Q6H fluticasone propionate 50 mcg/actuation spray,suspension 2 spray intranasal DAILY PRN (Reason: allergy symptoms) Rx Instructions: administer into each nostril ibuprofen 800 mg tablet 800 mg PO Q6H famotidine [Pepcid AC] 10 mg tablet 20 mg PO Q6H baclofen 10 mg tablet 10 mg PO TID cholecalciferol (vitamin D3) 50 mcg (2,000 unit) capsule 2,000 unit PO DAILY calcium carbonate 500 mg calcium (1,250 mg) tablet,chewable 500 mg PO DAILY cetirizine [Zyrtec] 10 mg tablet 10 mg PO DAILY PRN (Reason: allergy symptoms) ondansetron 4 mg tablet,disintegrating 4 mg PO Q8H pregabalin 25 mg capsule 25 mg PO BID xkosqjgfuklovtk-xhqaqhzuq-MV 2-30-10 mg/5 mL syrup 5 ml PO Q6H PRN (Reason: sinus symptoms) omeprazole 40 mg capsule,delayed release(DR/EC) 40 mg PO BID Print Language: Chadian Instructions: Tennis Elbow (ED) Referrals: Elsy Varma NP [Primary Care Provider] - 1 week Discharge Date/Time: 08/02/25 11:08
--- OUTSIDE RECORDS SUMMARY | 2025-08-02 13:00 | XMS_ITS | CCD ---
Author Organization [facility] Care Team Providers Care Commissions Analyst Name Role Phone AIDE LOMELI Primary Care Unavailable CINDY COON Admitting Unavailable CINDY COON Attending Unavailable Antwan Woodruff MD Unavailable Radha Negrete MD Primary Care Provider [phone] Don Moya MD Unavailable Nathaniel Ovalle MD Unavailable [phone] KuLianne gutierrez DO Unavailable [phone] Karlee Sanchez MD Unavailable Antwan Woodruff MD Unavailable Radha Negrete MD Primary Care Provider Don Moya MD Unavailable Nathaniel Ovalle MD Unavailable [phone] KuLianne gutierrez DO Unavailable Karlee Sanchez MD Unavailable Regina Bright MD Unavailable [phone] Leopoldo Douglas Primary Care Provider Antwan Woodruff MD Unavailable Don Moya MD Unavailable Nathaniel Ovalle MD Unavailable KuLianne gutierrez DO Unavailable Karlee Sanchez MD Unavailable Regina Bright MD Unavailable Chuck HERNANDEZ-RACHEL Leopoldo Primary Care Provider [phone] Mason Walls MD Unavailable Stalcup RPh, Joseph Unavailable Unavailable Zapata building serviceman, Ronit Unavailable Unavailable Darryl building serviceman, Maya Unavailable Unavailable Chuck REDUCTION PLANT SUPERVISOR-RACHEL Leopoldo Primary Care Provider Stalcup RPh, Joseph Unavailable Unavailable Zapata building serviceman, Ronit Unavailable Unavailable Darryl building serviceman, Maya Unavailable Unavailable Titi CAVANAUGH, Mason Unavailable Stalcup RPh, Joseph Unavailable Unavailable Zapata building serviceman, Ronit Unavailable Unavailable Darryl building serviceman, Maya Unavailable Unavailable Demidova DO, Shira Unavailable Stalcup RPh, Joseph Unavailable Unavailable Zapata building serviceman, Ronit Unavailable Unavailable Darryl building serviceman, Maya Unavailable Unavailable Mack Vega MD Unavailable LEOPOLDO WOODS CNP Primary Care Physician Richard Coon Attending Unavailable Richard Coon Admitting Unavailable Chuck, Leopoldo L Primary Care Unavailable Windnagel, Azul Referring Unavailable Windnagel, Azul Attending Unavailable Windnagel, Azul Admitting Unavailable Griffin CAVANAUGH, Don Marquez Unavailable Nathaniel Ovalle MD Unavailable [phone] Mason Walls MD Unavailable PAULINA JONES Attending Unavailable CHUCK, LEOPOLDO Primary Care Unavailable PROVIDER, UNKNOWN Admitting Unavailable PROVIDER, UNKNOWN Attending Unavailable CHUCK, LEOPOLDO Primary Care Unavailable PROVIDER, UNKNOWN Admitting Unavailable PROVIDER, UNKNOWN Admitting Unavailable ROBERT, PAULINA Referring Unavailable CHUCK, LEOPOLDO Primary Care Unavailable PROVIDER, UNKNOWN Attending Unavailable PROVIDER, UNKNOWN Admitting Unavailable CHUCK, LEOPOLDO Primary Care Unavailable PROVIDER, UNKNOWN Attending Unavailable PROVIDER, UNKNOWN Admitting Unavailable CHUCK, LEOPOLDO Primary Care Unavailable CHUCK, LEOPOLDO Referring Unavailable PROVIDER, UNKNOWN Attending Unavailable Mateusz CAVANAUGH, Andana Thomas Attending Unavailable Mateusz CAVANAUGH, Kishan Thomas Attending Unavailable CHUCK, LEOPOLDO Admitting Unavailable CHUCK, LEOPOLDO Attending Unavailable CHUCK, LEOPOLDO Primary Care Unavailable CHUCK, LEOPOLDO Consulting Unavailable Chuck ELECTRON MICROPROBE OPERATOR-C, Leopoldo L Primary Care Provider [phone] Leopoldo Kern Attending Provider Leopoldo Woods MD Primary Care Provider [phone] Leopoldo Woods Attending Unavailable Leopoldo Woods Primary Care Unavailable Leopoldo Woods Admitting Unavailable JOHN BLOOM Attending Unavailable SHERIDAN JARVIS Attending Unavailable JOHN BLOOM Attending Unavailable Allergies Allergy Classification Reported Allergen(s) Allergy Type Date of Onset Reaction(s) Facility (6 sources) Morphine; Translations: [morphine] Drug Allergy 4 memory loss [facility] Repository (6 sources) Penicillins; Translations: [PENICILLINS] Drug allergy (disorder) 3 Rash [facility] Repository (2 sources) Ketorolac; Translations: [...] sources) Penicillin; Translations: [penicillin] Drug Allergy rash [facility] (5 sources) Ketorolac Drug Allergy 4 Nausea [facility] Repository (2 sources) Morphine Drug Allergy 4 [facility] Repository (2 sources) Penicillins Drug allergy (disorder) 4 [facility] Repository (2 sources) traMADol Drug Allergy 4 [facility] Repository (1 source) Naproxen; Translations: [Naprosyn] Drug Allergy [facility] Repository (8 sources) Ketorolac Propensity to adverse reactions 4 [facility] Medications Current Medications Medication Drug Class(es) Dates Sig (Normalized) Sig (Original) 0.4 ml adalimumab 100 mg/ml auto-injector (20 sources) Tumor Necrosis Factor Jelani Start: 12-19-2022 End: 04-08-2023 Adalimumab (Humira Pen) 40 MG/0.4ML PNKT Inject 40 mg under the skin every 14 days. 2 Each 3 04/13/2023 9:02 AM EDT 04/09/2023 Active Start: 08-13-2022 End: 12-17-2022 Adalimumab [...] 2 05/26/2022 08/13/2022 Discontinued (Duplicate (*won't e-cancel)) [id number] 200 actuat albuterol 0.09 mg/actuat metered dose inhaler (20 sources) beta2-Adrenergic Agonist Start: 03-17-2025 take 1 puff(s) by inhalation every four to six hours as needed for wheezing Albuterol Sulfate 90 mcg/actuation HFA aerosol inhaler Active 2 PUFF INHALATION EVERY 4-6 HOURS as needed for shortness of breath or wheezing 8.5 March 17, 2025 12:00am Start: 02-03-2024 Albuterol Sulf ate 90 mcg/actuation HFA aerosol inhaler Active 1 INH INHALATION Every 6 hours February 03, 2024 1:00am Start: 08-18-2016 albuterol (PRO VENTIL HFA) inhaler 90 mcg/inh Inhale 2 Puffs. 08/18/2016 Active take 2 puff(s) by in halation every four hours for wheezing albuterol HFA 90 mcg/act inhaler Inhale 2 puffs every 4 (four) hours if needed for wheezing Active atorvastatin 20 mg oral tablet (20 sources) HMG-CoA Reductase Inhibitor Start: 02-03-2024 take 1 tablet by mouth once daily Atorvastatin (Lipitor) 20 mg tablet Active 20 MG PO Daily February 03, 2024 1:00am calcipotriene 0.07736 mg/mg topical ointment (20 sources) Vitamin D Analog Start: 05-28-2017 End: 05-11-2023 calcipotriene (DOVONOX) 0.005 % ointment Indications: Psoriasis Apply topically 2 times daily. Apply thin layer to affected area. 60 g 3 11/12/2022 Active cetirizine hydrochloride 10 mg oral tablet (3 sources) Histamine-1 Receptor Antagonist Start: 02-03-2024 take 1 tablet by mouth once daily as needed Cetirizine (Zyrtec) 10 mg tablet Active 10 MG PO Daily as needed for allergy symptoms February 03, 2024 1:00am clobetasol propionate 0.5 mg/ml topical cream (20 sources) Corticosteroid Start: 02-02-2017 End: 01-17-2024 clobetasol (TEMOVATE) 0.05 % cream Indications: Psoriasis Apply topically 2 times daily to rash on hands and feet 60 g 3 07/21/2023 Active cyclobenzaprine hydrochloride 10 mg oral tablet (8 sources) Muscle Relaxant take 1 tablet by mouth in the morning cyclobenzaprine (Flexeril) 10 MG tablet Take 10 mg by mouth in the morning and 10 mg before bedtime. Active DULoxetine 30 mg delayed release oral capsule (18 sources) Serotonin and Norepinephrine Reuptake Inhibitor Start: 04-07-2023 take 1 capsule by mouth once daily Duloxetine (Cymbalta) 30 mg capsule,delayed release(DR/EC) Active 30 MG PO Daily February 03, 2024 1:00am famotidine 40 mg oral tablet (12 sources) Histamine-2 Receptor Antagonist Start: 02-03-2024 take 1 tablet by mouth once daily Famotidine 40 mg tablet Active 40 MG PO Daily February 03, 2024 1:00am Start: 08-08-2023 End: 08-08-2023 Famotidine (PF) (PEPCID) 20 MG/2ML injection fluocinolone acetonide 0.1 mg/ml otic solution (2 sources) Corticosteroid Start: 07-26-2025 End: 08-02-2025 fluocinolone (DermOtic) 0.01 % ear drops Indications: 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 Administer 5 drops into each ear in the morning and 5 drops before bedtime. Do all this for 7 days. 20 mL 07/26/2025 08/02/2025 Active fluticasone propionate 0.05 mg/actuat metered dose nasal spray (20 sources) Corticosteroid Start: 03-17-2025 take 2 spray(s) nasal route once daily Fluticasone Propionate (Flonase Allergy Relief) 50 mcg/actuation spray,suspension Active 2 SPRAY INTRANASAL Daily March 17, 2025 12:00am administer 2 spray into each nostril Start: 08-18-2016 fluticasone (F LOVENT HFA) 110 MCG/ACT inhaler Inhale 2 Puffs. 08/18/2016 Active take 1 spray(s) nasa l route once daily fluticasone (Flonase) 50 MCG/ACT nasal spray Administer 1 spray into each nostril Daily Shake gently. Before first use, prime pump. After use, clean tip and replace cap. Active Fluticasone Propionate 50 mcg/actuation blister with device (3 sources) Start: 02-03-2024 Fluticasone Pr opionate 50 mcg/actuation blister with device Active 1 INH INHALATION Twice daily February 03, 2024 1:00am Start: 02-03-2024 Fluticasone Pr opionate 50 mcg/actuation blister with device Active 1 INH INHALATION Twice daily February 03, 2024 12:00am hydroCHLOROthiazide 25 mg oral tablet (5 sources) Thiazide Diuretic Start: 07-11-2025 take 1 tablet by mouth in the morning hydroCHLOROthiazide (HYDRODiuril) 25 MG tablet Take 25 mg by mouth in the morning. 07/11/2025 Active Start: 03-17-2025 take 1 tablet by mouth once Hy drochlorothiazide 25 mg tablet Active 25 MG PO Once March 17, 2025 12:00am hydrOXYzine hydrochloride 25 mg oral tablet (3 sources) Antihistamine take 1 tablet by mouth once daily as needed hydrOXYzine HCl (Atarax) 25 MG tablet TAKE 1 TABLET BY MOUTH ONCE DAILY AT NIGHT NEEDED FOR ITCHING Active ibuprofen 800 mg oral tablet (15 sources) Nonsteroidal Anti-inflammatory Drug Start: 07-11-20 take 1 tablet by mouth three times daily as needed ibuprofen 800 MG tablet Take 800 mg by mouth 3 (three) times a day as needed 07/11/2025 Active Start: 03-17-2025 take 1 tablet by kamini th three times daily as needed Ibuprofen 800 mg tablet Active 800 MG PO Three times daily as needed March 17, 2025 12:00am Start: 02-19-2023 End: 03-17-2025 take 1 tablet by mouth every eight hours as needed for pain Ibuprofen 600 mg tablet Discontinued 600 MG PO Every 8 hours as needed for pain February 03, 2024 1:00am March 17, 2025 2:27pm naloxone hydrochloride 40 mg/ml nasal spray (20 [...] take 1 capsule by mouth once daily Omeprazole 40 mg capsule,delayed release(DR/EC) Active 40 MG PO Daily February 03, 2024 1:00am ondansetron 4 mg oral tablet (9 sources) Serotonin-3 Receptor Antagonist Start: 07-11-2025 take 1 tablet by mouth every eight hours as needed for nausea ondansetron (Zofran) 4 MG tablet Take 4 mg by mouth every 8 (eight) hours if needed for nausea 07/11/2025 Active Start: 02-03-2024 take 1 tablet by kamini every eight hours Ondansetron Hcl 4 mg tablet Active 4 MG PO Every 8 hours February 03, 2024 1:00am Start: 08-08-2023 End: 08-08-2023 ondansetron (ZOFRAN) 4 MG/2M L injection Start: 08-08-2023 End: 08-08-2023 ondansetron (ZOFRAN) 4 MG/2M L injection Start: 11-12-2022 End: 11-12-2022 ondansetron (ZOFRAN-ODT) disintegrating tablet petrolatum 610 mg/ml topical cream (20 sources) Start: 12-28-2018 eucerin (DERMACERIN) cream Apply topically as needed. Apply thin layer to affected area. 1 Tube 1 12/28/2018 Active sucralfate 1000 mg oral tablet (12 sources) Aluminum Complex Start: 02-03-2024 take 1 tablet by mouth twice daily Sucralfate (Carafate) 1 gram tablet Active 1 GM PO Twice daily February 03, 2024 1:00am Start: 08-08-2023 End: 08-08-2023 sucralfate (CARAFATE) tablet take 1 g by mouth in the morning sucralfate (Carafate) 1 GM/10ML suspension Take 1 g by mouth in the morning and 1 g in the evening. Take with meals. Active Tapinarof 1 % CREA (18 sources) Start: 07-21-2023 Tapinarof 1 % CREA Indications: Psoriasis Apply 2 g externally daily. 60 g 1 07/21/2023 Active tiZANidine 4 mg oral tablet (7 sources) Central alpha-2 Adrenergic Agonist Start: 03-07-2022 [...] Tablet 0 07/30/2017 12/05/2022 Discontinued (Changing therapy) azithromycin 250 mg oral tablet (3 sources) Macrolide Antimicrobial Start: 10-12-2024 End: 03-17-2025 Azithromycin 250 mg tablet Discontinued 0 PO .COMPLEX October 12, 2024 1:00am March 17, 2025 2:26pm For 250 mg dose pack: take 500 mg today (day 1), then 250 mg for 4 days (days 2-5) PO cephalexin 500 mg oral capsule (3 sources) Cephalosporin Antibacterial Start: 02-03-2024 End: 10-12-2024 take 1 capsule by mouth three times daily Cephalexin 500 mg capsule Discontinued 500 MG PO Three times daily 30 February 03, 2024 1:00am October 12, 2024 2:57pm cholecalciferol 1.25 mg oral capsule (11 sources) Vitamin D Start: 02-03-2024 End: 03-17-2025 take 1 capsule by mouth every week Cholecalciferol (Vitamin D3) 1,250 mcg (50,000 unit) capsule Discontinued 1250 MCG PO every week February 03, 2024 1:00am March 17, 2025 2:26pm take 1 capsule by mouth every we ek cholecalciferol (Vitamin D-3) 1.25 MG (12887 UT) capsule Take 50,000 Units by mouth 1 (one) time per week Active ciprofloxacin 500 mg oral tablet (3 sources) Quinolone Antimicrobial Start: 02-08-2024 End: 10-12-2024 take 1 tablet by mouth every two hours Ciprofloxacin Hcl 500 mg tablet Discontinued 500 MG PO Twice daily February 08, 2024 12:00am October 12, 2024 3:05pm Administer dose at least 2 hrs before/6 hrs after dairy products, calcium, zinc, and/or iron-containing products esomeprazole 40 mg injection (1 source) Proton Pump Inhibitor Start: 08-08-2023 End: 08-08-2023 esomeprazole (NEXIUM) 40 MG injection Start: 08-08-2023 End: 08-08-2023 esomeprazole (NEXIUM) 40 MG injection 12 hr guaiFENesin 600 mg extended release oral tablet (11 sources) Start: 02-03-2024 End: 10-12-2024 take 1 tablet by mouth twice daily, then take 1 tablet by mouth every twelve hours Guaifenesin (Mucinex) 600 mg tablet extended release 12hr Discontinued 600 MG PO Twice daily February 03, 2024 1:00am October 12, 2024 2:57pm hydrocortisone 25 mg/ml topical cream (3 sources) Corticosteroid Start: 02-03-2024 End: 03-17-2025 Hydrocortisone (Anusol-Hc) 2.5 % cream with perineal applicator Discontinued 1 APPLIC IN 1 to 2 times per day as needed for itching February 03, 2024 1:00am March 17, 2025 2:26pm 0.5 ml HYDROmorphone hydrochloride 1 mg/ml prefilled syringe (1 source) Opioid Agonist Start: 08-08-2023 End: 08-08-2023 HYDROmorphone HCl PF (DILAUDID) 1 MG/ML injection Start: 08-08-2023 End: 08-08-2023 HYDROmorphone HCl PF (DILAUD ID) 1 MG/ML injection iohexol (OMNIPAQUE) 350 MG/ML injection (1 source) Start: 08-08-2023 End: 08-08-2023 iohexol (OMNIPAQUE) 350 MG/ML injection lamoTRIgine 100 mg oral tablet (20 sources) Mood Stabilizer, Anti-epilepti c Agent Start: 02-03-2024 End: 03-17-2025 take 1 tablet by mouth once daily Lamotrigine (Lamictal) 100 mg tablet Discontinued 100 MG PO Daily February 03, 2024 1:00am March 17, 2025 2:27pm lamoTRIgine (Olson ICtal) 100 MG tablet Take 25 mg by mouth Daily Active linaclotide 0.145 mg oral capsule (20 sources) Guanylate Cyclase-C Agonist Start: 07-30-2017 End: 10-12-2024 take 1 capsule by mouth once daily as needed for constipation Linaclotide (Linzess) 145 mcg capsule Discontinued 145 MCG PO Daily as needed for constipation February 03, 2024 1:00am October 12, 2024 3:06pm predniSONE 10 mg oral tablet (6 sources) Start: 02-08-2024 End: 10-12-2024 Prednisone 10 mg tablet Discontinued 0 MG .ROUTE .COMPLEX 39 February 08, 2024 12:00am October 12, 2024 2:57pm 6 tabs for 3 days 4 tabs for 3 days 2 tabs for 3 days 1 tabs for 3 days End: 05-17-2025 take 1 tablet by mouth once daily predniSONE (Deltasone) 20 MG tablet Take 20 mg by mouth Daily 05/17/2025 Discontinued (Therapy completed) sertraline 25 mg oral tablet (20 sources) [...] times daily. 2 Bottle 3 01/08/2018 Active Technet Tc 99m Sulfur Colloi d (1 source) Start: 12-22-2022 End: 12-22-2022 Technet Tc 99m Sulfur Colloi d Problems Active Problems Problem Classification Problem Date Documented Da te Episodic/Chronic Acute and chronic tonsillitis (20 sources) Hypertrophy of adenoids; Translations: [Hypertrophy of adenoids] Onset: 7 11-19-2017 Chronic Anxiety disorders (20 sources) Anxiety; Translations: [Anxiety disorder, unspecified] Onset: 0 11-13-2024 Chronic Asthma (8 sources) Uncomplicated moderate persistent asthma; Translations: [Moderate persistent asthma, uncomplicated] Onset: 8 05-15-2025 Chronic Blindness and vision defects (8 sources) Legal blindness [place]; Translations: [Legal blindness, as defined in [place]] Onset: 8 05-15-2025 Chronic Disorders of lipid metabolism (11 sources) Hypercholesterolemia; Translations: [Pure hypercholesterolemia, unspecified] Onset: 8 10-12-2024 Chronic Esophageal disorders (20 sources) Gastroesophageal reflux disease; Translations: [Gastro-esophageal reflux disease without esophagitis] Onset: 6 06-25-2017 Chronic Essential hypertension (3 sources) Hypertensive disorder; Translations: [Essential (primary) hypertension] 10-12-2024 Chronic Influenza (1 source) Influenza due to Influenza A virus; Translations: [Influenza due to other identified influenza virus with other respiratory manifestations] Episodic Mood disorders (20 sources) Depressive disorder; Translations: [Depression] Onset: 6 06-25-2017 Chronic Osteoporosis (8 sources) Senile osteoporosis; Translations: [Age-related osteoporosis without current pathological fracture] Onset: 4 05-15-2025 Chronic Other acquired deformities (8 sources) Kyphoscoliosis deformity of spine; Translations: [Scoliosis, unspecified] Onset: 1 05-15-2025 Chronic Other aftercare (5 sources) Taking high risk medication; Translations: [Other watermaster (current) drug therapy] Episodic Other congenital anomalies (20 sources) Disorder of the nose; 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, unspecified] Onset: 7 08-06-2017 Chronic Other connective tissue disease (1 source) Muscle pain; Translations: [Myalgia, unspecified site] Episodic Other connective tissue disease (1 source) Facial weakness; Translations: [Facial weakness] Onset: Episodic Other ear and sense organ disorders (2 sources) Hearing loss; Translations: [Unspecified hearing loss, unspecified ear] 05-17-2025 Chronic Other ear and sense organ disorders (1 source) Sensorineural hearing loss, unilateral, left ear, with unrestricted hearing on the contralateral side; Translations: [Sensorineural hearing loss, unilateral] 07-19-2025 Chronic Other ear and sense organ disorders (2 sources) Chronic non-infective otitis externa; Translations: [Other otitis externa, bilateral] 07-26-2025 Chronic Other ear and sense organ disorders (1 source) Otalgia, right ear; Translations: [Otalgia, right ear] Onset: 4 Episodic Other ear and sense organ disorders (1 source) Tinnitus of vascular origin; Translations: [Pulsatile tinnitus, bilateral] 07-19-2025 Episodic Other ear and sense organ disorders (1 source) Bilateral sensation of blocked ears; Translations: [Other specified disorders of ear, bilateral] 07-19-2025 Episodic Other gastrointestinal disorders (20 sources) Irritable [...] cord, unspecified] Onset: 8 09-09-2018 Chronic Other nervous system disorders (3 sources) Newsome's palsy; 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] 02-22-2024 Episodic Other nutritional; endocrine; and metabolic disorders (3 sources) Overweight in adulthood with body mass index of 25 or more but less than 30; Translations: [Body mass index (BMI) 28.0-28.9, adult] Episodic Other screening for suspected conditions (not mental disorders or infectious disease) (1 source) Other abnormal and inconclusive findings on diagnostic imaging of breast; Translations: [Other abnormal and inconclusive findings on diagnostic imaging of breast] Onset: 5 Episodic Other upper respiratory disease (2 sources) Allergy to pollen; Translations: [Allergic rhinitis due to pollen] 03-17-2025 Chronic Other upper respiratory disease (2 sources) Allergic rhinitis due to pollen; Translations: [Allergic rhinitis, cause unspecified] 03-17-2025 Chronic Other upper respiratory disease (8 sources) Allergic rhinitis; Translations: [Other allergic rhinitis] Onset: 8 05-15-2025 Chronic Other upper respiratory infections (3 sources) Acute pharyngitis, unspecified; Translations: [Viral upper respiratory tract infection] Onset: 4 10-12-2024 Episodic Otitis media and related conditions (9 sources) Otitis media; Translations: [Otitis media, unspecified, unspecified ear] 02-22-2024 Episodic Residual codes; unclassified (20 sources) Obstructive [...] displacement, lumbar region] Onset: 8 07-26-2019 Chronic Spondylosis; intervertebral disc disorders; other back problems (20 sources) Lumbosacral radiculopathy; Translations: [Radiculopathy, lumbosacral region] Onset: 8 05-13-2018 Episodic Substance-related disorders (8 sources) Tobacco dependence syndrome; Translations: [Nicotine dependence, unspecified, uncomplicated] Onset: 8 05-15-2025 Chronic Thyroid disorders (20 sources) Non-toxic multinodular goiter; Translations: [Nontoxic multinodular goiter] Onset: 1 05-15-2025 Chronic Past or Other Problems Problem Classification Problem Date Documented Da te Episodic/Chronic Abdominal hernia (2 sources) Hiatal hernia; Translations: [Diaphragmatic hernia without obstruction or gangrene] Onset: 08-13-2023 08-13-2023 Episodic Abdominal pain (5 sources) Epigastric pain; Translations: [Epigastric pain] Onset: 08-13-2023 08-08-2023 Episodic Administrative/social admission (8 sources) Bereavement; Translations: [Disappearance and of family member] Onset: 08-26-2021 05-15-2025 Episodic Nonspecific chest pain (20 sources) Chest pain; Translations: [Chest pain, unspecified] Onset: 06-24-2017 06-24-2017 Episodic Other aftercare (20 sources) Patient encounter status; Translations: [Encounter for other specified aftercare] Onset: 06-29-2018 06-29-2018 Episodic Other aftercare (1 source) Other watermaster (current) drug therapy; Translations: [Other alf (current) drug therapy] Onset: 07-21-2023 Episodic Other aftercare (8 sources) Immunosuppression; Translations: [Immunosuppression due to drug therapy] Onset: 09-01-2020 05-15-2025 Episodic Other disorders of stomach and duodenum [...] [Inadequate sleep hygiene] Onset: 08-06-2017 08-06-2017 Episodic Results Test Name Value Interpretation Reference Range Facility Auditory function testson Right Ear: Normal hearing Left Ear: Mild sensorineural hearing loss at 8K Hz only [facility] MM special view RT w/CADon 0 05-10-2025 MM special view RT w/CAD [facility] Main [place] [address] [place] [address] Ultrasound Report Signed Patient: Heather Johns MR#: [id number] : 1975 Acct:[id number] Age/Sex: 49 / F ADM Date: 05/10/25 Loc: [place] Room: Type: [facility] Attending Dr: Leopoldo AKBAR Ordering Provider: Leopoldo AKBAR Date of Service: 05/10/25 MM/MM special view RT w/CAD: ABN [facility] ([id number]) US/US breast RT limited: ABN MAMMO Copies to: Leopoldo AKBAR RIGHT Diagnostic Full Field digital mammogram with 3-D imaging. Full field digital CC and MLO imaging performed. CAD utilized. COMPARISON: 04/20/2025 HISTORY: Annual screening BREAST COMPOSITION: Scattered fibroglandular densities of the breast parenchyma identified BREAST CALCIFICATIONS: Benign calcifications present. VASCULAR CALCIFICATIONS: None ARCHITECTURAL DISTORTION: None BREAST NODULE: 7 mm nodularity at the T10 11:00 position 6 cm from the nipple. AXILLARY LYMPH NODES: Normal POSTSURGICAL CHANGES: None Targeted right breast ultrasound. At the 9:00 position 6 cm from nipple ovoid hypoechoic 5 mm nodule identified. US/US breast RT limited IMPRESSION: 5 mm ovoid hypoechoic right breast nodule. Probably benign. Six-month targeted right breast ultrasound recommended. RESULT CODE: 3 Probably Benign Finding Short Term Follow-Up DENSITY CODE: 2 (approximately 25-50% glandular) There are scattered areas of fibroglandular density. FOLLOW UP: 6M THE FALSE-NEGATIVE RATE OF MAMMOGRAPHY IS APPROXIMATELY 10%. IMAGING OF A PALPABLE ABNORMALITY MUST BE BASED ON CLINICAL GROUNDS. PATIENT WAS ENTERED INTO A REMINDER SYSTEM WITH A TARGET DUE DATE FOR THE NEXT MAMMOGRAM. Impression dictated by: Arsenio Oliveira M.D. 05/10/2025 10:11 AM Dictation Location: [facility] Tech: Cheryle Islas; Vicki Baker Transcribed By: ROWAN 05/10/25 1011 Dictated By: Arsenio Oliveira DO 05/10/25 1005 Signed By: 05/10/25 1011 Normal [facility] COVID Cepheidon 03-17-2025 SARS-CoV-2 (COVID-19) RNA TARYN+probe Ql (Unsp spec) COVID Cepheid [facility] - Microbiology an d Antimicrobial susceptibilityon 03-17-2025 SARS-CoV-2 (COVID-19) RNA TARYN+probe Ql (Unsp spec) Negative [facility] No Panel Informationon 03-17 POC Influenza A (PCR) Negative [facility] POC Influenza B (PCR) Negative [facility] Telephone Encounteron 2023 Garbage Person Authentication Interface Message Text Pt called in. She wanted to let the office know that her insurance is messed up and she will not be scheduling a rheum appt until this is all taken care of. The patient will call back once the insurance is fixed. Pt stated thanks for calling. Normal [facility] Telephone Encounteron 2023 Garbage Person Authentication Interface Message Text Please contact pt and schedule with the order in the Active Requests tab. Normal [facility] Consent for Treatmenton 01-29 Consent for Treatment [id number] .00TIFF Normal [facility] MRI Brain w/ + w/o Contrasto n [...] Vueway Contrast amount in ml's: 7.5 Normal [facility] Physician Orderon 02-17-2024 Physician Order [id number] .00TIFF Normal [facility] RAD - MRI Screening Formon 0 02-17-2024 RAD - MRI Screening Form [id number]# 1.00TIFF Normal [facility] CT head/brain wo conon 02-07 CT head/brain [place] [facility] [place] [address] CT Scan Report Signed Patient: Heather Johns MR#: [id number] : 1975 Acct:[id number] Age/Sex: 48 / F ADM Date: 02/08/24 Loc: ER Room: Type: [facility] ER Attending Dr: Copies to: Richard Coon MD Ordering Provider: Richard Coon MD Date of Service: 02/08/24 CT/CT head/brain wo con: [facility] er CT head/brain wo con 02/08/2024 12:11 PM [...] Cindy Hernandez M.D.02/08/2024 2:00 PM Dictation Location: [place] [address] Transcribed By: [facility] 02/08/24 1400 Dictated By: Cindy Hernandez II, MD 02/08/24 1352 Signed By: 02/08/[address] [facility] [address] soft tissue neck w conon 02-08-2024 CT soft tissue neck w con [facility] [place] [address] CT Scan Report Signed Patient: Heather Johns MR#: [id number] : 1975 Acct:[id number] Age/Sex: 48 / F ADM Date: 02/08/24 Loc: ER Room: Type: [facility] ER Attending Dr: Copies to: Richard [...] Cindy Hernandez M.D.02/08/2024 2:13 PM Dictation Location: [place] [address] Transcribed By: [facility] 02/08/24 1413 Dictated By: Cindy Hernandez II, MD 02/08/24 1400 Signed By: 02/08/24 1413 [facility] Complete Blood Count Auto Di ffon 02-08-2024 Basophils (Bld) [#/Vol] 0.2 10*3/uL Normal 0.0-0.2 [facility] Comment on above: Performed By: #### E SR, MONOTEST, CMP, CBC #### [address] Basophils/100 WBC (Bld) 1.9 % Normal . [facility] Comment on above: Performed By: #### E SR, MONOTEST, CMP, CBC #### [address] Eosinophils (Bld) [#/Vol] 0.4 10*3/uL Normal 0.0-0.45 [facility] Comment on above: Performed By: #### E SR, MONOTEST, CMP, CBC #### [address] Eosinophils/100 WBC (Bld) 4.5 % Normal . [facility] Comment on above: Performed By: #### E SR, MONOTEST, CMP, CBC #### [address] Erythrocyte distribution width (RBC) [Ratio] 13.0 % Normal 11.9-15.3 [facility] Comment on above: Performed By: #### E SR, MONOTEST, CMP, CBC #### [address] Hematocrit (Bld) [Volume fraction] 36.7 % Normal 34.0-46.4 [facility] Comment on above: Performed By: #### E SR, MONOTEST, CMP, CBC #### [address] Hemoglobin (Bld) [Mass/Vol] 12.2 g/dL Normal 11.8-15.4 [facility] Comment on above: Performed By: #### E SR, MONOTEST, CMP, CBC #### [address] Lymphocytes (Bld) [#/Vol] 3.1 10*3/uL Normal 1.00-4.8 [facility] Comment on above: Performed By: #### E SR, MONOTEST, CMP, CBC #### [address] Lymphocytes/100 WBC (Bld) 39.4 % Normal . [facility] Comment on above: Performed By: #### E SR, MONOTEST, CMP, CBC #### [address] MCH (RBC) [Entitic mass] 28.5 pg Normal 24.7-34.3 [facility] Comment on above: Performed By: #### E SR, MONOTEST, CMP, CBC #### [address] MCV (RBC) [Entitic vol] 85.5 fL Normal 80-100 [facility] Comment on above: Performed By: #### E SR, MONOTEST, CMP, CBC #### [address] Mean Corpuscular HGB Conc 33.4 g/dL Normal 32.0-35.0 [facility] Comment on above: Performed By: #### E SR, MONOTEST, CMP, CBC #### [address] Monocytes (Bld) [#/Vol] 0.6 10*3/uL Normal 0.0-0.8 [facility] Comment on above: Performed By: #### E SR, MONOTEST, CMP, CBC #### [place] [address] [place] Monocytes/100 WBC (Bld) 17.33 % Normal 0.00-20.00 [facility] Comment on above: Performed By: #### E SR, MONOTEST, CMP, CBC #### [place] [address] [place] Monocytes/100 WBC (Bld) 7.7 % Normal . [facility] Comment on above: Performed By: #### E SR, MONOTEST, CMP, CBC #### [address] Neutrophils (Bld) [#/Vol] 3.7 10*3/uL Normal 1.8-7.7 [facility] Comment on above: Performed By: #### E SR, MONOTEST, CMP, CBC #### [address] Neutrophils/100 WBC (Bld) 46.5 % Normal . [facility] Comment on above: Performed By: #### E SR, MONOTEST, CMP, CBC #### [address] NRBC% 0.3 /100{WBC} Normal 0-0.5 [facility] Comment on above: Performed By: #### E SR, MONOTEST, CMP, CBC #### [address] Platelet mean volume (Bld) [Entitic vol] 8.8 fL Normal 6.3-10.7 [facility] Comment on above: Performed By: #### E SR, MONOTEST, CMP, CBC #### [address] Platelets (Bld) [#/Vol] 374 10*3/uL Normal 150-450 [facility] Comment on above: Performed By: #### E SR, MONOTEST, CMP, CBC #### [address] RBC (Bld) [#/Vol] 4.29 10*6/uL Normal 3.60-5.00 [facility] Comment on above: Performed By: #### E SR, MONOTEST, CMP, CBC #### [address] WBC (Bld) [#/Vol] 7.9 10*3/uL Normal 3.8-11.6 [facility] Comment on above: Performed By: #### E SR, MONOTEST, CMP, CBC #### [address] Comprehensive Metabolic Pane chely 02-08-2024 Albumin [Mass/Vol] 4.3 g/dL Normal 3.5-5.7 [facility] Comment on above: Performed By: #### E SR, MONOTEST, CMP, CBC #### [facility] [address] [place] [address] [place] Albumin/Globulin [Mass ratio] 1.3 {ratio} Normal [facility] Comment on above: Performed By: #### E SR, MONOTEST, CMP, CBC #### [facility] [address] [place] [id number] [place] ALP [Catalytic activity/Vol] 105 U/L High 34-104 [facility] Comment on above: Performed By: #### E SR, MONOTEST, CMP, CBC #### [facility] [address] ALT [Catalytic activity/Vol] 18 U/L Normal 7-52 [facility] Comment on above: Performed By: #### E SR, MONOTEST, CMP, CBC #### [facility] [address] Anion gap [Moles/Vol] 11.7 mmol/L Normal 6.0-15.0 [facility] Comment on above: Performed By: #### E SR, MONOTEST, CMP, CBC #### [facility] [address] AST [Catalytic activity/Vol] 15 U/L Normal 13-39 [facility] Comment on above: Performed By: #### E SR, MONOTEST, CMP, CBC #### [facility] [address] [place] [address] [place] Bilirubin [Mass/Vol] 0.4 mg/dL Normal 0.3-1.0 [facility] Comment on above: Performed By: #### E SR, MONOTEST, CMP, CBC #### [facility] [address] [place] [address] [place] Calcium [Mass/Vol] 10.1 mg/dL Normal 8.6-10.3 [facility] Comment on above: Performed By: #### E SR, MONOTEST, CMP, CBC #### [facility] [address] [place] [address] [place] Chloride [Moles/Vol] 103 mmol/L Normal 98-107 [facility] Comment on above: Performed By: #### E SR, MONOTEST, CMP, CBC #### [facility] [address] CO2 [Moles/Vol] 28.1 mmol/L Normal 21.0-31.0 [facility] Comment on above: Performed By: #### E SR, MONOTEST, CMP, CBC #### [facility] [address] Creatinine [Mass/Vol] 0.97 mg/dL Normal 0.60-1.20 [facility] Comment on above: Performed By: #### E SR, MONOTEST, CMP, CBC #### [facility] [address] Creatinine Clr Calc Pharmacy 74.15 [facility] Comment on above: Result Comment: PERF ORMED BY: [place] [address] PATHOLOGIST TANK TRUCK OPERATOR MEAGAN SAMPSON M.D. Performed By: #### E SR, MONOTEST, CMP, CBC #### [address] GFR/1.73 sq M.predicted MDRD (S/P/Bld) [Vol rate/Area] mL/min/{1.73_m2} [facility] Comment on above: Performed By: #### E SR, MONOTEST, CMP, CBC #### [facility] [address] Globulin (S) [Mass/Vol] 3.4 g/dL [facility] Comment on above: Performed By: #### E SR, MONOTEST, CMP, CBC #### [facility] [address] Glucose [Mass/Vol] 90 mg/dL Normal 70-100 [facility] Comment on above: Result Comment: [place] Glucose Reference Range is dependent on time and content of last meal. Glucose of more than 200 mg/dL in a nonstressed, ambulatory subject supports the diagnosis of Diabetes Mellitus. ADA recommended reference range Performed By: #### E SR, MONOTEST, CMP, CBC #### [facility] [address] Potassium [Moles/Vol] 3.8 mmol/L Normal 3.5-5.1 [facility] Comment on above: Performed By: #### E SR, MONOTEST, CMP, CBC #### [facility] [address] Protein [Mass/Vol] 7.7 g/dL Normal 6.4-8.9 [facility] Comment on above: Performed By: #### E SR, MONOTEST, CMP, CBC #### [facility] [address] Sodium [Moles/Vol] 139 mmol/L Normal 136-145 [facility] Comment on above: Performed By: #### E SR, MONOTEST, CMP, CBC #### [address] Urea nitrogen [Mass/Vol] 14 mg/dL Normal 7-25 [facility] Comment on above: Performed By: #### E SR, MONOTEST, CMP, CBC #### [address] Erythrocyte Sedimentation Ra jess 02-08-2024 ESR (Bld) [Velocity] 63 mm/h High 0-19 [facility] Comment on above: Result Comment: PERF ORMED BY: [place] [address] PATHOLOGIST TANK TRUCK OPERATOR MEAGAN SAMPSON M.D. Performed By: #### E SR, MONOTEST, CMP, CBC #### [facility] [address] [place] [address] [place] Monot[place] 02-08-2024 Monotest Negative Normal Negative [facility] Comment on above: Result Comment: PERF ORMED BY: [place] [address] PATHOLOGIST TANK TRUCK OPERATOR MEAGAN SAMPSON M.D. Performed By: #### E SR, MONOTEST, CMP, CBC #### [address] [address] [place] Throat Cultureon 02-08-2024 Throat culture Heavy Normal Respiratory Ilsa 2 Days PERFORMED BY: [place] [address] PATHOLOGIST TANK TRUCK OPERATOR MEAGAN SAMPSON M.D. [facility] Comment on above: Performed By: #### C UT #### [facility] [address] [place] [address] XR chest 2V*on 02-08-2024 XR chest 2V* [facility] [place] [address] [place] [address] XRay Report Signed Patient: Heather Johns MR#: [id number] : 1975 Acct:[id number] Age/Sex: 48 / F ADM Date: 02/08/24 Loc: ER Room: Type: [facility] ER Attending Dr: Copies to: Richard [...] Cindy Hernandez M.D.02/08/2024 2:44 PM Dictation Location: [place] [address] Transcribed By: [facility] 02/08/24 1444 Dictated By: Cindy Hernandez II, MD 02/08/24 1444 Signed By: 02/08/24 1444 [facility] US Abdomen RUQon 10-19-2023 EXAMINATION: US [...] explain right upper quadrant pain. MACRO: None [facility] Radiology Study observation (narrative) [facility] US Abdomen RUQOrdered By: Luann Constantino on 10-19-2023 [facility]: US LIVER/GALL BLADDER/PANCRE ASon 10-19-2023 [...] upper quadrant pain. MACRO: None Normal [facility] Progress Noteson 08-13-2023 Garbage Person Authentication Interface Message Text Gastroenterology Clinic Visit Paulina Jones DO [address] [place], [place] [address] [address] Attending Physician: Dr. Bethany Johnson MD PCP: [...] Co (more content not included)... Normal [facility] Garbage Person Authentication Interface Message Text Patient was identified by name and date of . George BowensPatient at risk for falls:No Falls Risk protocol implemented: No Normal [facility] BASIC METABOLIC PANELon 09-0 Anion gap [Moles/Vol] 14 mmol/L Normal 10-20 [facility] Comment on above: Performed By: #### C H8, HEPATIC, LIP ####[facility] [id number] [place], [place], Calcium [Mass/Vol] 9.8 mg/dL Normal 8.4-10.4 [facility] Comment on above: Performed By: #### C H8, HEPATIC, LIP ####[facility] [id number] [place], [place], Chloride [Moles/Vol] 106 mmol/L Normal 97-111 [facility] Comment on above: Performed By: #### C H8, HEPATIC, LIP ####[facility] [id number] [place], CO2 [Moles/Vol] 22 mmol/L Normal 21-30 The [facility] Comment on above: Performed By: #### C H8, HEPATIC, LIP ####[facility] [id number] [place], Creatinine [Mass/Vol] 0.99 mg/dL Normal 0.50-1.10 [facility] Comment on above: Performed By: #### C H8, HEPATIC, LIP ####[facility] [id number] [place], ESTIMATED GFR (CKD-EPI) 70 mL/min/1.73sqm Normal >=60 [facility] Comment on above: Result [...] Inclusion of Race in Diagnosing Kidney Disease. [place] Journal of Kidney Diseases 2021;79(2):268-88.e1. 2. N Engl J Med 1 Vol. 385 Issue 19 Pages 6510-2921 Performed By: #### C H8, HEPATIC, LIP ####[facility] [id number] [place], Glucose [Mass/Vol] 109 mg/dL Normal 68-110 [facility] Comment on above: Performed By: #### C H8, HEPATIC, LIP ####[facility] [id number] [place], Potassium [Moles/Vol] 4.4 mmol/L Normal 3.3-5.3 [facility] Comment on above: Performed By: #### C H8, HEPATIC, LIP ####[facility] [id number] [place], Sodium [Moles/Vol] 138 mmol/L Normal 135-148 [facility] Comment on above: Performed By: #### C H8, HEPATIC, LIP ####[facility] [id number] [place], Urea nitrogen [Mass/Vol] 22 mg/dL Normal 8-22 [facility] Comment on above: Performed By: #### C H8, HEPATIC, LIP ####[facility] [id number] [place], Basic metabolic 2000 panelon 08-08-2023 Anion gap [Moles/Vol] 14 mmol/L 10 - 20 Met [facility] Calcium [Mass/Vol] 9.8 mg/dL 8.4 - 10. 4 mg/dL [facility] Chloride [Moles/Vol] 106 mmol/L 97 - 11 1 mmol/L [facility] CO2 [Moles/Vol] 22 mmol/L 21 - 30 mmol/L [facility] Creatinine [Mass/Vol] 0.99 mg/dL 0.50 - 1.10 mg/dL [facility] GFR/1.73 sq M.predicted MDRD (S/P/Bld) [Vol rate/Area] 70 mL/min/{1.73_m2} [facility] Comment on above: 2020 CKD EPI [...] Inclusion of Race in Diagnosing Kidney Disease. [place] Journal of Kidney Diseases 2021;79(2):268-88.e1. 2. N Engl J Med 2020 Vol. 385 Issue 19 Pages 7442-3696 Glucose [Mass/Vol] 109 mg/dL 68 - 110 mg/dL [facility] Interpretation and review of laboratory results Normal [...] (Bld) [#/Vol] 0.28 10*3/uL High 0.00-0.[address] [facility] Comment on above: Performed By: #### C BCDSAT #### S PATHOLOGY LABORATORY [address] [place] [address], Basophils/100 WBC (Bld) 3.3 % High <=1.9 [facility] Comment on above: Performed By: #### C BCDSAT #### S [facility] LABORATORY [address] [place] [address], Eosinophils (Bld) [#/Vol] 0.37 10*3/uL Normal 0.00-0.[address] [facility] Comment on above: Performed By: #### C BCDSAT #### S [facility] [address] [place], [place], Eosinophils/100 WBC (Bld) 4.5 % High 0.1-4.[address] [facility] Comment on above: Performed By: #### C BCDSAT #### [facility] [address] [place], [place], Erythrocyte distribution width (RBC) [Ratio] 12.6 % Normal 11.5-14.5 The [facility] Comment on above: Performed By: #### C BCDSAT #### S [facility] LABORATORY [address] [place], [place], Hematocrit (Bld) [Volume fraction] 39.5 % Normal 36.0-46.0 [facility] Comment on above: Performed By: #### C BCDSAT #### S PATH[facility] LABORATORY [address] [place] [address], Hemoglobin (Bld) [Mass/Vol] 12.9 g/dL Normal 12.0-15.0 The [facility] Comment on above: Performed By: #### C BCDSAT #### [facility] [address] [place], [place], Lymphocytes (Bld) [#/Vol] 3.85 10*3/uL Normal 1.00-4.80 The [facility] Comment on above: Performed By: #### C BCDSAT #### [facility] [address] [place] [address], Lymphocytes/100 WBC (Bld) 46.5 % High 24.0-44.0 The [facility] Comment on above: Performed By: #### C BCDSAT #### [facility] [address] [place] [address], MCH (RBC) [Entitic mass] 29.4 pg Normal 26.0-34.0 The [facility] Comment on above: Performed By: #### C BCDSAT #### [facility] [address] [place] [address], MCHC (RBC) [Mass/Vol] 32.7 g/dL Normal 32.0-35.9 The [facility] Comment on above: Performed By: #### C BCDSAT #### [facility] [address] [place] [address], MCV (RBC) [Entitic vol] 90 fL Normal 80-100 The [facility] Comment on above: Performed By: #### C BCDSAT #### [facility] [address] [place] [address], MONOCYTE DISTRIBUTION WIDTH Normal The [facility] Comment on above: Performed By: #### C BCDSAT #### S PATHOLOGY LABORATORY [address] [place], [place], Monocytes (Bld) [#/Vol] 0.64 10*3/uL Normal 0.20-1.00 The [facility] Comment on above: Performed By: #### C BCDSAT #### [facility] [address] [place], [place], Monocytes/100 WBC (Bld) 7.7 % Normal 2.0-11.0 The [facility] Comment on above: Performed By: #### C BCDSAT #### [facility] [address] [place], [place], Neutrophils (Bld) [#/Vol] 3.14 10*3/uL Normal 1.50-8.00 [facility] Comment on above: Performed By: #### C BCDSAT #### [facility] [address] [place], [place], Neutrophils/100 WBC (Bld) 38.0 % Normal 31.0-76.0 The [facility] Comment on above: Performed By: #### C BCDSAT #### [facility] [address] [place], [place], Platelet mean volume (Bld) [Entitic vol] 9.6 fL Normal 7.5-11.2 The [facility] Comment on above: Performed By: #### C BCDSAT #### S PATH[facility] LAB[facility]ATORY [address] [place], [place], Platelets (Bld) [#/Vol] 328 10*3/uL Normal 150-400 The [facility] Comment on above: Performed By: #### C BCDSAT #### S PATHOLOGY LABORATORY [address] [place], [place], RBC (Bld) [#/Vol] 4.40 10*6/uL Normal 4.00-5.20 The [facility] Comment on above: Performed By: #### C BCDSAT #### S PATHOLOG[facility] LABORATORY [address] [place], [place], WBC (Bld) [#/Vol] 8.3 10*3/uL Normal 4.5-11.5 [facility] Comment on above: Performed By: #### C BCDSAT #### [facility] [address] [place], [address] [address] ABD/PELVIS ED I/V IVÁN W / [...] Small hiatal hernia. MACRO: None Normal [facility] CT Abdomen and Pelvis W cont rast IVOrdered By: Don Stoll on 08-08-2023 CT DLP 693.9 (mGy.cm) [facility] h Work Phone: CT Series Abdomen [facility] Work Phone: CTDI VOL 12.6 (mGy) [facility] Work Phone: PHANTOM TYPE IEC Body Dosimetry Phantom [facility] Work Phone: [facility] Work Phone: CT Abdomen and Pelvis [...] pelvis. 2. Small hiatal hernia. MACRO: None [facility] Radiology Study observation (narrative) [facility] D-DIMERon 08-08-2023 Fibrin D-dimer DDU (PPP) [Mass/Vol] NINF [facility] Interpretation and review of laboratory results Normal [facility] A D-Dimer result of <230 ng/mL DDU has a high negative predictive value for DVT and PE when combined with a clinical assessment of low to moderate probability. This cut-off value is specific for HemosIL D-dimer assay and values obtained using different methods may not be used interchangeably. [employer] DIMER < 200 Normal <230 [facility] Comment on above: Order Comment: A [...] D NIC #### [facility] [address] [place], [address] ED Provider Noteson 08-08-20 Garbage Person Authentication Interface Message Text Robert Abdul: CT a/pw/ NAD, d dimer less than 200 making PE or AD less likley, pt's feeling better, re exam: abdomen w/ + BS, ND, mild LUQ tenderness, no guarding/rebound. Stable for outpatient management Normal [facility] Garbage Person Authentication Interface Message Text EMERGENCY DEPARTMENT - VISIT NOTE --------- HISTORY OF PRESENT ILLNESS ----- Chief Complaint Patient presents with Abdominal pain Epigastric pain x1.5 weeks. Pt states she thinks she has a hernia. Booky: not needed - patient preferred language is Angolan. The history is provided by the Patient. [...] incorporated. Review of External (Non- ED) Notes: [facility] ED notes from 2017 reviewed and show EGD w/ hiatal hernia Management Decisions: Diagnoses considered include left chest pain includes PE, muscle strain, GERD, low suspicion for ACS based on normal ekg and history and duration of sx. No evidence of PNA or PTX on cxr. Low suspicion for SBO based on hx and exam. Doubt biliary (more content not included)... Normal The [facility] HEPATIC FUNCTION PANELon Albumin [Mass/Vol] 4.3 g/dL 3.4 - 5.1 g/dL [facility] ALP [Catalytic activity/Vol] 79 U/L [facility] ALT [Catalytic activity/Vol] 17 U/L [facility] AST [Catalytic activity/Vol] 13 U/L [facility] Bilirubin [Mass/Vol] 0.4 mg/dL 0.1 - 1 .5 mg/dL [facility] Bilirubin.direct [Mass/Vol] 0.06 mg/dL Low 0.10 - 0.30 mg/dL [facility] Interpretation and review of laboratory results Abnormal [facility] Protein [Mass/Vol] 7.4 g/dL 6.2 - 8.3 g/dL [facility] Albumin [Mass/Vol] 4.3 g/dL Normal 3.4-5.1 [facility] Comment on above: Performed By: #### C H8, HEPATIC, LIP ####[facility] [id number] [place], ALK 79 IU/L Normal 40-200 The [facility] Comment on above: Performed By: #### C H8, HEPATIC, LIP ####[facility] [id number] [place], ALT [Catalytic activity/Vol] 17 U/L Normal 7-40 The [facility] Comment on above: Performed By: #### C H8, HEPATIC, LIP ####[facility] [id number] [place], AST [Catalytic activity/Vol] 13 U/L Normal 7-40 The [facility] Comment on above: Performed By: #### C H8, HEPATIC, LIP ####S PATHOLOGY [id number] [place], Bilirubin [Mass/Vol] 0.4 mg/dL Normal 0.1-1.5 The [facility] Comment on above: Performed By: #### C H8, HEPATIC, LIP ####S PATHOLOGY [id number] [place], Bilirubin.direct [Mass/Vol] 0.06 mg/dL Low 0.10-0.30 [facility] Comment on above: Performed By: #### C H8, HEPATIC, LIP ####[facility] PATH[facility]Y [id number] [place], Protein [Mass/Vol] 7.4 g/dL Normal 6.2-8.3 [facility] Comment on above: Performed By: #### C H8, HEPATIC, LIP ####S PATHOLOGY [id number] [place], LIPASEon 08-08-2023 Interpretation and review of laboratory results Normal [facility] Lipase [Catalytic activity/Vol] 12 U/L [facility]INF [facility] LIP 12 IU/L Normal <128 The [facility] Comment on above: Performed By: #### C H8, HEPATIC, LIP ####S PATHOLOGY [id number] [place], No Panel Informationon 08-08 [facility] Progress Noteson 08-08-2023 Garbage Person Authentication Interface Message Text Maya, Per 07/21/23 follow-up, patient is no longer using Humira until further notice due to possible respiratory infection. Patient now treating with topicals for now. Will hold Humira renewal until we hear further instruction for MD or patient. Normal [facility] URINALYSISon 08-08-2023 Appearance (U) Clear Clear [facility] Bacteria LM.HPF (Urine sed) [#/Area] Few /HPF [facility] Bilirubin Ql (U) Negative Negative [facility] Color (U) Light Yellow Colorless [facility] Epithelial cells.squamous LM.HPF (Urine sed) [#/Area] 0-2 [facility] Glucose Auto test strip (U) [Mass/Vol] Negative Negative mg/dL [facility] Hemoglobin Ql (U) Negative Negative [facility] Interpretation and review of laboratory results Abnormal [facility] Ketones Ql (U) Negative Negative mg/dL [facility] Leukocyte esterase Test strip Ql (U) Positive Abnormal Negative [facility] Comment on above: Normal urine specime ns will not produce a positive reaction. Small amounts of leukocyte esterase, causing a positive reaction should be repeated, using a fresh urine specimen, from the same patient. Positive results require further testing for pyuria. Mucus Ql (Urine sed) Present [facility] Nitrite Ql (U) Negative Negative [facility] pH (U) 5.5 [pH] 5.0 - 8.0 [facility] Protein (U) [Mass/Vol] Negative Negative mg/dL [facility] Specific gravity (U) [Rel density] 1.021 NINF - 1.030 [facility] Urobilinogen Qn (U) Negative Negative mg/dL [facility] WBC (U) [#/Vol] 0-2 [facility] WBC [...] around 50%) Performed By: #### u rinalysis ####[facility] PATHOLOGY [id number] [place], SQUAMOUS EPITHELIAL 0-2 Normal 0-10 The [facility] Comment on above: Order Comment: [...] around 50%) Performed By: #### u rinalysis ####[facility] PATHOLOGY [id number] [place], [place] APPEAR Clear Normal Clear The [facility] Comment on above: Order Comment: A [...] around 50%) Performed By: #### u rinalysis ####[facility] PATHOLOGY [id number] [place], [place] BACTERIA Few Normal [facility] Comment on above: Order Comment: [...] around 50%) Performed By: #### u rinalysis ####[facility] PATHOLOGY [id number] [place], [place] BILI Negative Normal Negative [facility] Comment on above: Order Comment: A [...] around 50%) Performed By: #### u rinalysis ####[facility] PATHOLOGY [id number] [place] [address], U BLOOD Negative Normal Negative The [facility] Comment on above: Order Comment: A [...] around 50%) Performed By: #### u rinalysis ####[facility] PATHOLOGY [id number] [place] [address], U COLOR Light Yellow Normal Colorless [facility] Comment on above: Order [...] around 50%) Performed By: #### u rinalysis ####[facility] PATHOLOGY [id number] [place], [place] KETONE Negative Normal Negative The [employer] [facility] Comment on above: Order Comment: A [...] around 50%) Performed By: #### u rinalysis ####[facility] PATHOLOGY [id number] [place], [place] LEUK Positive Abnormal Negative The [employer] [facility] Comment on above: Order Comment: A [...] for pyuria. Performed By: #### u rinalysis ####[facility] PATHOLOGY [id number] [place], [place] MUCOUS Present Normal The [employer] [facility] Comment on above: Order Comment: A [...] around 50%) Performed By: #### u rinalysis ####[facility] PATHOLOGY [id number] [place], [place] NITRITE Negative Normal Negative The [employer] [facility] Comment on above: Order Comment: A [...] around 50%) Performed By: #### u rinalysis ####[facility] PATHOLOGY [id number] [place] [address], U PH 5.5 Normal 5.0-8.0 The [employer] [facility] Comment on above: Order Comment: A [...] around 50%) Performed By: #### u rinalysis ####[facility] PATHOLOGY [id number] [place], [place] PROTEIN Negative Normal Negative [facility] Comment on above: Order Comment: A [...] around 50%) Performed By: #### u rinalysis ####[facility] PATHOLOGY [id number] [place], [place] RBC 0-2 Normal 0-2 The [employer] [facility] Comment on above: Order Comment: A [...] around 50%) Performed By: #### u rinalysis ####[facility] PATHOLOGY [id number] [place], [place] SG 1.021 Normal <=1.030 The [employer] [facility] Comment on above: Order Comment: A [...] around 50%) Performed By: #### u rinalysis ####[facility] PATHOLOGY [id number] [place], [place] UROBILI Negative Normal Negative The [employer] [facility] Comment on above: Order Comment: A [...] Performed By: #### u rinalysis ####S PATHOLOGY [id number] [place], [place] WBC 0-2 Normal 0-2 The [facility] Comment on above: Order Comment: [...] around 50%) Performed By: #### u rinalysis ####[facility] PATHOLOGY [id number] [place], XR CHEST PA+LAT 2 VIEWSon XR CHEST PA+LAT 2 VIEWS EXAMINATION: XR CHEST PA+LAT 2 VIEWS 08/08/2023 02:51 PM CLINICAL HISTORY: c/o chest pain x 2 weeks r/o infiltrate, edema, effusion ASSOCIATED DIAGNOSIS: c/o chest pain x 2 weeks r/o infiltrate, edema, effusion ORDERING PROVIDER: NHI JANE NOTE: COMPARISON: XR CHEST 2 VIEW PA+LAT 11/12/2022, 7:59 PM FINDINGS: Cardiomediastinal silhouette: Normal heart size. Trachea: Midline. Lungs and pleura: No pulmonary consolidation, pleural effusion or pneumothorax. Osseous structures: Minor osteophytic endplate spurring of multiple thoracic vertebra. IMPRESSION: No acute cardiopulmonary findings. MACRO: None Normal [facility] XR Chest PA and Lateralon EXAMINATION: XR CHES T PA+LAT 2 VIEWS 08/08/2023 02:51 PM CLINICAL HISTORY: c/o chest pain x 2 weeks r/o infiltrate, edema, effusion ASSOCIATED DIAGNOSIS: c/o chest pain x 2 weeks r/o infiltrate, edema, effusion ORDERING PROVIDER: NHI JANE NOTE: COMPARISON: XR CHEST 2 VIEW PA+LAT [...] IMPRESSION: No acute cardiopulmonary findings. MACRO: None [facility] Study observation (narrative) [facility] XR Chest PA and LateralOrder ed By: Adan Daniels on 08-08-2023 [facility] Work Phone: Progress Noteson 07-22-2023 Garbage Person Authentication Interface Message Text Lamonte Grady, Please see below denial from this patient's insurance for the Vtama Cream: Please let me know how you would like to proceed. Joesph Normal [facility] Garbage Person Authentication Interface Message Text [facility] - Prior Auth Denied- PHARMACY BENEFIT 07/22/23 1455 [facility] Prior Auth Info - Primary [facility] PA Outcome Denied Payor Approval Rx Benefit Insurance Payor [employer] Dual Medicare PA Number [id number] Denial Reason Required Step Therapy PA Notes [...] Thank you, Maya Andrews CPhT Normal [facility] Garbage Person Authentication Interface Message Text [facility] - Prior Auth Submitted- PHARMACY BENEFIT Medication and dosing: vtama 1% cream - apply 2 g externally daily Insurance has been verified to be: [facility] dual medicare ([employer]) PA submitted on date: 07/22/2023 Method submitted: alanis Acosta: [id number] Pharmacy will addend this encounter with response from plan. Thank you, Maya Andrews CPhT Normal [facility] Progress Noteson 07-21-2023 Garbage Person Authentication Interface Message Text Documentation: Mode: Video [...] patient Pt advised to contact me over MyChart or call office at [phone] (more content not included)... Normal [facility] Telephone Encounteron 2022 Garbage Person Authentication Interface Message Text Called pt to let her know that she needs an follow up appointment per Dr. Grady. Pt states she is uncomfortable coming in for a visit and [facility] is the closest location for her. Pt wanting virtual appointment. Advised pt that I will reach out to provider to see if it is okay for a virtual appointment. Pt verbalized understanding. April Galo RN July 13, 2023 Normal [facility] Telephone Encounteron 2022 Garbage Person Authentication Interface Message Text Pt calling, requesting [...] no symptoms. Please contact. Thanks! Normal [facility] TUBERCULOSIS- CELL MEDIATED I*Ordered By: Karlee Ko on 12-24-2022 Interpretation and review of laboratory results Normal [facility] M. tuberculosis stim IFN-g by CD4+ CD8+ T-cells corrected for background Qn (Bld) NINF [facility] M. tuberculosis stim IFN-g by CD4+ T-cells corrected for background Qn (Bld) [facility] TB (Cell Mediated) Negative Negative [facility] Interferon gamma release is measured for specimens [...] evidence of TB infection is not uncommon. [facility] Basic metabolic 2000 panelon 12-22-2022 Anion gap [Moles/Vol] 14 mmol/L 10 - 20 [facility] Calcium [Mass/Vol] 9.8 mg/dL 8.4 - 10. 4 mg/dL [facility] Chloride [Moles/Vol] 105 mmol/L 97 - 11 1 mmol/L [facility] CO2 [Moles/Vol] 28 mmol/L 21 - 30 mmol/L [facility] Creatinine [Mass/Vol] 0.86 mg/dL 0.50 - 1.10 mg/dL [facility] GFR/1.73 sq M.predicted MDRD (S/P/Bld) [Vol rate/Area] 84 mL/min/{1.73_m2} [facility] Comment on above: 2020 CKD EPI [...] Inclusion of Race in Diagnosing Kidney Disease. [place] Journal of Kidney Diseases 2021;79(2):268-88.e1. 2. N Engl J Med 2020 Vol. 385 Issue 19 Pages [id number] Glucose [Mass/Vol] 85 mg/dL 68 - 110 mg/[facility] Interpretation and review of laboratory results Normal [facility] Potassium [Moles/Vol] 4.2 mmol/L 3.3 - 5.3 mmol/L [facility] Sodium [Moles/Vol] 143 mmol/L 135 - 148 mmol/L [facility] Urea nitrogen [Mass/Vol] 22 mg/dL 8 - 22 mg/dL [facility] Diabetes tracking panelOrder ed By: Jaciel Neal on 12-22-2022 Average glucose Estimated from glycated hemoglobin (Bld) [Mass/Vol] 111 mg/dL [facility] HbA1c (Bld) [Mass fraction] 5.5 % 4.0 - 5.6 % [facility] NM Stomach Views for gastric emptying W radionuclide Darius 12-22-2022 EXAMINATION: NC GASTRIC EMPTYING STUDY 12/22/2022 12:29 PM CLINICAL [...] RADIOLOGY Eva Luna MD - 12/22/2022 EXAMINATION: NC GASTRIC EMPTYING STUDY 12/22/2022 12:29 PM CLINICAL [...] compared to the prior study. MACRO: None [facility] Radiology Study observation (narrative) [facility] Stomach Views for gastric emptying W radionuclide POOrdered By: Eva Luna on 12-22-2022 [facility] Work Phone: TSHon 12-22-2022 Interpretation and review of laboratory results Normal [facility] TSH Qn 1.358 m[IU]/L [facility] Comment on above: Referance range for women as applicable: First Trimester: 0. 050 to 3.700 uIU/mL Second Trimester: 0. 310 to 4.350 uIU/mL Third Trimester: 0. 410 to 5.180 uIU/mL [facility] Basic metabolic 2000 panelOr dered By: Elsa Sifuentes on 11-12-2022 Anion gap [Moles/Vol] 12 mmol/L 10 - 20 [facility] Calcium [Mass/Vol] 9.2 mg/dL 8.4 - 10. 4 mg/dL [facility] Chloride [Moles/Vol] 104 mmol/L 97 - 11 1 mmol/L [facility] CO2 [Moles/Vol] 27 mmol/L 21 - 30 mmol/L [facility] Creatinine [Mass/Vol] 0.92 mg/dL 0.50 - 1.10 mg/dL [facility] GFR/1.73 sq M.predicted MDRD (S/P/Bld) [Vol rate/Area] 77 mL/min/{1.73_m2} - [facility] Comment on above: 2020 CKD EPI Equatio [...] Inclusion of Race in Diagnosing Kidney Disease. [place] Journal of Kidney Diseases 202;79(2):268-88.e1. 2. N Engl J Med 2020 Vol. 385 Issue 19 Pages [phone] Glucose [Mass/Vol] 90 mg/dL 68 - 110 mg/dL [facility] Interpretation and review of laboratory results Normal [facility] Potassium [Moles/Vol] 4.4 mmol/L 3.3 - 5.3 mmol/L [facility] Comment on above: Hemolysis present Sodium [Moles/Vol] [...] 16.5 % High 2.0 - 11.0 % [facility] Neutrophils (Bld) [#/Vol] 1.20 10*3/uL Low 1.50 - 8.00 K/uL [facility] Neutrophils/100 WBC (Bld) 27.4 % Low 31.0 - 76.0 % [facility] Nucleated RBC (Bld) [#/Vol] 0.01 10*3/uL [facility] Nucleated RBC/100 WBC (Bld) [Ratio] 0.1 % [facility] Platelet mean volume (Bld) [Entitic vol] 9.1 fL 7.5 - 11.2 fL [facility] Platelets (Bld) [#/Vol] 254 10*3/uL 150 - 400 K/uL [facility] RBC (Bld) [#/Vol] 4.44 10*6/uL [facility] WBC (Bld) [#/Vol] 4.5 10*3/uL 4.5 - 11.5 K/uL [facility] HIGH SENSITIVITY TROPONIN Io n 11-12-2022 Troponin I.cardiac DL <= 0.01 ng/mL [Mass/Vol] ng/L NINF - 15 ng/L [facility] Troponin I.cardiac DL <= 0.0 1 ng/mL [Mass/Vol]on 11-12-2022 Interpretation and review of laboratory results Normal [facility] High Sensitivity Cardiac Troponin I (hsTnI) assay has replaced the conventional troponin assay at [facility]. All results are reported in whole numbers representing ng/L. Repeat test times for ruling out acute coronary syndrome (ACS) are every 2 hours instead of every 6-8 hours. [id number]-ab-[id number] conventional troponin (I-stat) will remain available in the [facility] ED results obtained by different labs [...] Ketones Ql (U) Trace Abnormal Negative mg/dL [facility] Leukocyte esterase Test strip Ql (U) Negative Negative Yossi/uL [facility] Nitrite Ql (U) Negative Negative [facility] pH (U) 5.5 [pH] 5.0 - 8.0 [facility] Protein (U) [Mass/Vol] 30 mg/dL Abnormal Negative [facility] Specific gravity (U) [Rel density] 1.005 - 1.030 [facility] Urobilinogen Qn (U) 0.2 mg/dL 0.2 - 1. 0 mg/dL [facility] URINALYSIS - MICRO (SATELLIT E)on 11-12-2022 Bacteria LM.HPF (Urine sed) [#/Area] Many /HPF [facility] Epithelial cells.squamous LM.HPF (Urine sed) [#/Area] 6-10 [facility] Interpretation and review of laboratory results Abnormal [facility] Mucus Ql (Urine sed) Present [facility] Urate crystals amorphous LM.HPF (Urine sed) [#/Area] Moderate /HPF [facility] WBC (U) [#/Vol] 3-5 [facility] LM.HPF (Urine sed) [#/Area] [facility] Chest PA and Lateralon EXAMINATION: XR [...] No acute cardiopulmonary abnormality identified. MACRO: None [facility] Radiology Study observation (narrative) [facility] XR Chest PA and LateralOrder ed By: Carl Hough on 11-12-2022 [facility] Work Phone: ED NOTEon 03-07-2022 ED NOTE HNO ID: [id number] Author: Keirstin Luna, RN Service: ? Author Type: Registered Nurse Type: ED Notes Filed: 03/07/2022 4:49 PM Note Text: Pt received written and verbal discharge instructions. Instructed pt to follow up with PCP or follow-up DR. Instructed to come back to Emergency Room if symptoms worsen. Pt verbalized understanding. [facility] ED NOTE HNO ID: [id number] Author: Yaritza Quarles RN Service: ? Author Type: Registered Nurse Type: ED Notes Filed: 03/07/2022 4:18 PM Note Text: Patient presents to the ED with c/o bilateral leg pain x2 weeks. Patient denies injury/trauma. Patient denies history of blood clots. [facility] ED PROV NOTEon 03-07-2022 ED PROV NOTE HNO ID: [id number] Author: Jose Oswald PA-C Service: ? Author Type: Physician Building Custodian Type: ED Provider Notes Filed: 03/07/2022 4:39 [...] issues or complaints. 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 Normal [facility] Vital Signs Date Time Vital Sign Value Performing Clinician Facility 07-26-2025 09:130400 Body height 165.1 cm John Bloom MD Work Phone: [facility] 07-26-2025 09:13-0400 Body mass index (BMI) [Ratio] 28.79 kg/m2 John Bloom MD Work Phone: [facility] 07-26-2025 09:13-0400 Body weight 78.47 kg John Bloom MD Work Phone: [facility] 07-26-2025 09:13-0400 Diastolic blood pressure 86 mm[Hg] John Bloom MD Work Phone: [facility] 07-26-2025 09:13-0400 Heart rate 76 /min John Bloom MD Work Phone: [facility] 07-26-2025 09:13-0400 Systolic blood pressure 116 mm[Hg] John Bloom MD Work Phone: [facility] 05-17-2025 10:54-0400 Body height 165.1 cm John Bloom MD Work Phone: [facility] 05-17-2025 10:54-0400 Body mass index (BMI) [Ratio] 28.79 kg/m2 John Bloom MD Work Phone: [facility] 05-17-2025 10:54-0400 Body weight 78.47 kg John Bloom MD Work Phone: [facility] 05-17-2025 10:54-0400 Diastolic blood pressure 81 mm[Hg] John Bloom MD Work Phone: [facility] 05-17-2025 10:54-0400 Heart rate 99 /min John Bloom MD Work Phone: [facility] 05-17-2025 10:54-0400 Systolic blood pressure 132 mm[Hg] John Bloom MD Work Phone: [facility] 03-17-2025 14:10-0400 Body height 165.1 cm [facility] 03-17-2025 14:10-0400 Body mass index (BMI) [Ratio] 29 kg/m2 [facility] 03-17-2025 14:10-0400 Body temperature 99.7 [degF] [facility] 03-17-2025 14:10-0400 Body weight 79.09 kg [facility] 03-17-2025 14:10-0400 Diastolic blood pressure 80 mm[Hg] [facility] 03-17-2025 14:10-0400 Heart rate 127 /min [facility] 03-17-2025 14:10-0400 Respiratory rate 18 /min [facility] 03-17-2025 14:10-0400 SaO2% (BldA) [Mass fraction] 95 % [facility] 03-17-2025 14:10-0400 Systolic blood pressure 122 mm[Hg] [facility] 10-12-2024 14:00-0500 Body height 165.1 cm [facility] 10-12-2024 14:00-0500 Body mass index (BMI) [Ratio] 27.4 kg/m2 [facility] 10-12-2024 14:00-0500 Body temperature 97.4 [degF] [facility] 10-12-2024 14:00-0500 Body weight 74.84 kg [facility] 10-12-2024 14:00-0500 Diastolic blood pressure 92 mm[Hg] [facility] 10-12-2024 14:00-0500 Heart rate 111 /min [facility] 10-12-2024 14:00-0500 Respiratory rate 16 /min [facility] 10-12-2024 14:00-0500 SaO2% (BldA) [Mass fraction] 98 % [facility] 10-12-2024 14:00-0500 Systolic blood pressure 141 mm[Hg] [facility] 08-13-2023 11:01-0400 Body mass index (BMI) [Ratio] 29.6 kg/m2 Mack Vega MD [facility] 08-13-2023 11:01-0400 Body temperature 96.69 [degF] Mack Vega MD Work Phone: [facility] 08-13-2023 11:01-0400 Body weight 80.69 kg Mack Vega MD Work Phone: [facility] 08-13-2023 11:01-0400 Diastolic blood pressure 92 mm[Hg] Mack Vega MD Work Phone: [facility] 08-13-2023 11:01-0400 Heart rate 95 /min Mack Vega MD Work Phone: [facility] 08-13-2023 11:01-0400 SaO2% (BldA) [Mass fraction] 99 % Mack Vega MD Work Phone: [facility] 08-13-2023 11:01-0400 Systolic blood pressure 124 mm[Hg] Mack Vega MD Work Phone: [facility] 08-08-2023 16:11-0400 Diastolic blood pressure 89 mm[Hg] Nhi Abdul MD Work Phone: [facility] 08-08-2023 16:11-0400 Heart rate 68 /min Nhi Abdul MD Work Phone: [facility] 08-08-2023 16:11-0400 Respiratory rate 19 /min Nhi Abdul MD Work Phone: [facility] 08-08-2023 16:11-0400 Systolic blood pressure 139 mm[Hg] Nhi Abdul MD Work Phone: [facility] 08-08-2023 10:41-0400 Body temperature 98.01 [degF] Nhi Abdul MD Work Phone: [facility] 08-08-2023 10:41-0400 SaO2% (BldA) [Mass fraction] 97 % Nhi Abdul MD Work Phone: [facility] 12-05-2022 10:50-0500 Body mass index (BMI) [Ratio] 28.79 kg/m2 Mason Walls MD Work Phone: [facility] 12-05-2022 10:50-0500 Body temperature 97.7 [degF] Mason Walls MD Work Phone: [facility] 12-05-2022 10:50-0500 Body weight 78.47 kg Mason Walls MD Work Phone: [facility] 12-05-2022 10:50-0500 Diastolic blood pressure 74 mm[Hg] Mason Walls MD Work Phone: [facility] 12-05-2022 10:50-0500 Heart rate 98 /min Mason Walls MD Work Phone: [facility] 12-05-2022 10:50-0500 Systolic blood pressure 106 mm[Hg] Mason Walls MD Work Phone: [facility] 11-12-2022 17:49-0500 Body temperature 98.2 [degF] Antwan Woodruff MD Work Phone: [facility] 11-12-2022 17:49-0500 Diastolic blood pressure 68 mm[Hg] Antwan Woodruff MD [facility] 11-12-2022 17:49-0500 Heart rate 113 /min Antwan Woodruff MD [facility] Phone[facility] 11-12-2022 17:49-0500 Respiratory rate 18 /min Antwan Woodruff MD [facility] Phone[facility] 11-12-2022 17:49-0500 SaO2% (BldA) [Mass fraction] 97 % Antwan Woodruff MD [facility] Phone[facility] 11-12-2022 17:49-0500 Systolic blood pressure 106 mm[Hg] Antwan Woodruff MD Work Phone: [facility] Encounters Encounter Date Encounter Type Care Provider Facility Start: 07-26-2025 End: 07-26-2025 [facility] Start: 07-26-2025 End: 07-26-2025 [facility] Start: 07-26-2025 End: 07-26-2025 Office outpatient visit 25 minutes [facility] Bloom MD [facility] Comment on above: Multinodular goiter (nontoxic) (Primary Dx); Gastroesophageal reflux disease, unspecified whether esophagitis present; 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 Start: 07-26-2025 End: 07-26-2025 ambulatory JOHN BLOOM Not Available Start: 07-19-2025 End: 07-19-2025 Bamboo flowstrish Jarvis [facility] Work Phone: [facility] Start: 07-19-2025 End: 07-19-2025 Bamboo Versafetrish Jarvis [facility] Work Phone: [facility] Start: 07-19-2025 End: 07-19-2025 Clinical Support Sheridan Nixon Max [facility] Work Phone: [facility] Comment on above: Sensorineural hearin g loss (SNHL) 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 (Primary Dx); Pulsatile tinnitus of both ears; Plugged feeling in ear, bilateral Start: 05-17-2025 End: 05-17-2025 Bamboo flowsheet John Bloom MD Work Phone: [facility] Start: 05-17-2025 End: 05-17-2025 Bamlashaun Bloom MD Work Phone: [facility] Start: 05-17-2025 End: 05-17-2025 ambulatory JOHN BLOOM Not Available Start: 05-17-2025 End: 05-17-2025 Office outpatient new 45 minutes John Bloom MD Work Phone: [facility] Comment on above: Hearing loss, unspec ified hearing loss type, unspecified laterality (Primary Dx); Nontoxic multinodular goiter ; LPRD (laryngopharyngeal reflux disease); ETD (Eustachian tube dysfunction), bilateral Start: 05-10-2025 End: 05-10-2025 Patient encounter procedure Leopoldo Woods NP-C Work Phone: [facility] Work Phone: Start: 05-10-2025 End: 05-10-2025 ambulatory Leopoldo Woods ELECTRON MICROPROBE OPERATOR-C [facility] [place] Work Phone: Start: 04-07-2025 End: 04-07-2025 ambulatory LEOPOLDO Parsons [facility] Start: 03-17-2025 End: 03-17-2025 ambulatory [facility] Work Phone: Start: 03-17-2025 End: 03-17-2025 Patient encounter procedure [facility] [place] Work Phone: Start: 12-03-2024 End: 12-03-2024 Letter encounter Antwan Woodruff MD Work Phone: [facility] Start: 10-12-2024 End: 10-12-2024 ambulatory [facility] Work Phone: Start: 10-12-2024 End: 10-12-2024 Patient encounter procedure [facility] [place] Work Phone: Start: 08-15-2024 End: 08-15-2024 ambulatory Kishan Child MD Facility: [facility] Start: 07-25-2024 End: 07-25-2024 ambulatory Kishan Child MD Facility: [facility] Start: 06-20-2024 End: 06-20-2024 Telephone encounter To Be Assigned [facility] Rheumato logy (Arthritis) Comment on above: Returned call Start: 02-17-2024 End: 02-18-2024 ambulatory Azul Guilhermemarilia [place] [place]: 02-17-2024 End: 02-17-2024 Patient encounter procedure Azul Evans [facility] Start: 02-08-2024 End: 02-08-2024 Emergency department patient visit Richard Coon Facility:[facility] Start: 10-19-2023 End: 10-19-2023 ambulatory UNKNOWN PROVIDER Facility:[facility] Start: 10-19-2023 End: 10-19-2023 Subsequent hospital visit by physician Op Ultrasound 3 [facility] Radiology Comment on above: Colicky RUQ abdomina l pain Start: 08-13-2023 End: 08-13-2023 Office outpatient visit 25 minutes Mack Vega MD Work Phone: [facility] Gastroenterology Comment on above: Left upper quadrant abdominal pain (Primary Dx); Gastroesophageal reflux disease without esophagitis; Hiatal hernia; Body mass index (BMI) 29.0-29.9, adult Start: 08-13-2023 End: 08-13-2023 ambulatory UNKNOWN PROVIDER Facility:[facility] Start: 08-08-2023 End: 08-08-2023 Emergency department patient visit Nhi Abdul MD Work Phone: [facility] Emergency Medicine Comment on above: Abdominal pain (Epig astric pain x1.5 weeks. Pt states she thinks she has a hernia.) Start: 08-08-2023 Emergency department patient visit UNKNOWN PROVIDER Facility:[facility] Start: 08-07-2023 ambulatory Joseph Staup [facility] Start: 07-22-2023 [facility]ulatory [facility] Start: 07-22-2023 [facility] Comment on above: Specialty Pharmacy R eferral (VTAMA) Start: 07-21-2023 End: 07-21-2023 ambulatory UNKNOWN PROVIDER Facility:[facility] Start: 07-21-2023 End: 07-21-2023 Office outpatient visit 25 minutes Shira Grady DO Work Phone: [facility] D[facility] Comment on above: Psoriasis (Primary D x); High risk medication use Start: 07-10-2023 ambulatory Regina newby MD Work Phone: [facility] Comment on above: Hi Start: 07-10-2023 E-mail encounter fro m caregiver Regina Bright MD Work Phone: [facility] Start: 04-10-2023 Specialty Pharmacy Ronit Zapata [facility] Comment on above: Specialty Pharmacy M edication Refill (Humira) Start: 04-08-2023 Refill Regina newby MD Work Phone: [facility] Dermatology Comment on above: Refill Start: 02-20-2023 Specialty Pharmacy Ronit Zapata [facility] Comment on above: Specialty Pharmacy M edication Refill (Humira) Start: 02-19-2023 ambulatory Joseph Stalcup [facility] Start: 01-20-2023 Specialty Pharmacy Ronit Zapata [facility] Comment on above: Specialty Pharmacy M edication Refill (Humira ) Start: 12-23-2022 Specialty Pharmacy Ronit Zapata [facility] Comment on above: Specialty Pharmacy M edication Refill (Humira) Start: 12-22-2022 End: 12-22-2022 Clinical Support Pathology Provider [facility] Main [facility] pus Pathology Comment on above: Arrived Start: 12-22-2022 End: 12-22-2022 Subsequent hospital visit by physician Mh Ip/Op Nuclear Prep [facility] Radiology Comment on above: Indigestion Start: 12-17-2022 Refill Regina newby MD Work Phone: [facility] Specialty Pharm[facility] Comment on above: Refill Start: 12-05-2022 Letter encounter Antwan Woodruff MD Work Phone: [facility] Start: 12-05-2022 End: 12-08-2022 Office outpatient new 45 minutes Mason Walls MD Work Phone: [facility] Gastroenterology Comment on above: Indigestion (Primary Dx); Body mass index (BMI) 28.0-28.9, adult Start: 12-04-2022 Letter encounter Antwan Woodruff MD Work Phone: [facility] Radiology CT Scan Start: 12-03-2022 Letter encounter Antwan Woodruff MD Work Phone: [facility] Start: 11-28-2022 Specialty Pharmacy Ronit Zapata [facility] Comment on above: Specialty Pharmacy M edication Refill (Humira) Start: 11-12-2022 End: 11-12-2022 Emergency department patient visit Antwan Woodruff MD Work Phone: [facility] Emergency Department Start: 11-12-2022 End: 11-12-2022 Office outpatient visit 25 minutes Regina Bright MD Work Phone: [facility] Comment on above: Psoriasis (Primary D x) Start: 10-02-2022 Telephone encounter Regina barnes MD Work Phone: [facility] Comment on above: Dermatology Start: 08-13-2022 Refill Regina newby MD Work Phone: [facility] Dermatology Comment on above: Refill Start: 07-23-2022 End: 07-23-2022 Phys/qhp telephone evaluation 11-20 min Regina Bright MD Work Phone: [facility] Comment on above: Palmoplantar pustula r psoriasis (Primary Dx); High risk medication use Start: 06-24-2022 Telephone encounter Joseph Alfredo [facility] Comment on above: Specialty Pharmacy R eferral (HUMIRA) Specialty Pharmacy R eferral (HUMIRA - [place] APPROVED) Start: 05-26-2022 End: 05-26-2022 Office outpatient new 20 minutes Alie Harper MD Work Phone: [facility] - Ambulatory Comment on above: Psoriasis, unspecifi ed (Primary Dx) Start: 06-25-2019 End: 06-25-2019 Patient encounter procedure [facility] Facility: Procedures Date Procedure Procedure Detail Performing Clinician Start: 07-19-2025 AUDITORY FUNCTION TESTS Sheridan Jarvis CCC-A Work Phone: Start: 05-10-2025 Mammography of right breast Leopoldo Woods ELECTRON MICROPROBE OPERATOR-C Work Phone: Start: 05-10-2025 Ultrasonography of right breast Leopoldo Woods ELECTRON MICROPROBE OPERATOR-C Work Phone: Start: 10-19-2023 Us abdominal real time w/image limited Leopoldo Woods [employer]UCTION PLANT SUPERVISOR-CONVALESCENT SITTER Work Phone: Start: 08-08-2023 Ct abdomen & pelvis w/contrast material Paulina Jones DO Work Phone: Start: 08-08-2023 Fibrin dgradj products d-dimer qual/semiquan Nhi Abdul MD Work Phone: Start: 08-08-2023 Radiologic exam chest 2 views Nhi Abdul MD Work Phone: Start: 08-08-2023 Assay of lipase Adan Martínez MD Work Phone: Start: 08-08-2023 Hepatic function panel Adan Martínez MD Work Phone: Start: 08-08-2023 Urnls dip stick/tablet rgnt auto w/o microscopy Adan Martínez MD Work Phone: Start: 12-22-2022 Basic metabolic panel calcium total Regina Bright MD Work Phone: Start: 12-22-2022 Tb antigen response gamma interferon t-cell susp Regina Bright MD Work Phone: Start: 12-22-2022 Gastric emptying imaging study Mason Walls MD Work Phone: Start: 11-12-2022 Urinalysis Aman Wright PA-C Work Phone: Start: 11-12-2022 End: 11-12-2022 Urnls dip stick/tablet rgnt auto w/o microscopy Aman Wright PA-C Work Phone: Start: 11-12-2022 Radiologic exam chest 2 views Aman Wright PA-C Work Phone: Start: 11-12-2022 Basic metabolic panel calcium total Aman Wright PA-C Work Phone: Start: 09-16-2016 Colonoscopy Alie Harper MD Work Phone: Start: 11-30-2001 H/O: bilateral oophorectomy Hx of bilateral oophorectomy John Bloom MD Work Phone: Plan of Treatment Date Care Activity Detail Author Start: 2040 Pneumococcal vaccination [facility] Start: 05-16-2028 Cholesterol [Mass/volume] in Serum or Plasma Cholesterol [facility] Start: 05-15-2028 Cholesterol [Mass/volume] in Serum or Plasma Cholesterol [facility] Start: 05-15-2028 Lipid panel Cholesterol [facility] Start: 09-16-2026 Screening for malignant neoplasm of colon [facility] Start: 01-10-2026 Tetanus vaccination Tetanus (Td or Tdap) Booster [facility] Start: 11-15-2025 End: 11-15-2025 Patient encounter procedure 11/15/2025 1:00 PM EST Office Visit [facility] [address] [facility] [address] [place] [address] John Bloom MD [address] [facility] [address] [place] [address] [facility] Start: 09-20-2025 Cholesterol [Mass/volume] in Serum or Plasma Cholesterol [facility] Start: 07-31-2025 Influenza vaccination Influenza Vaccine (#1) [facility] Start: 07-26-2025 End: 07-26-2025 Patient encounter procedure [facility] Comment on above: Arrived Start: 07-19-2025 End: 07-19-2025 Clinical Support 07/19/2025 1:45 PM EDT Clinical Support [facility] [address] [facility] [address] [place] [id number] Sheridan Jarvis, [facility] [address] [facility] [place] [address] Arrived [facility] Comment on above: Arrived Start: 08-30-2024 Influenza vaccination Influenza Vaccine (#1) [facility] Start: 07-31-2024 COVID-19 Vaccine ( season) COVID-19 Vaccine ( season) [facility] Start: 07-31-2024 Influenza vaccination Influenza Vaccine (#1) [facility] Start: 12-09-2023 COVID-19 Vaccine ( season) COVID-19 Vaccine ( season) [facility] Start: 08-30-2023 Influenza vaccination Influenza Vaccine (#1) [facility] Start: 08-13-2023 End: 08-13-2023 Patient encounter procedure 08/13/2023 11:00 AM EDT Office Visit [facility] Gastroenterology [address] [place] [id number] Mack Vega MD [address] [place] [id number] [facility] Gastroenterology Start: 07-31-2023 Influenza vaccination Influenza Vaccine (#1) [facility] Start: 05-05-2023 Cholesterol [Mass/volume] in Serum or Plasma Cholesterol [facility] Start: 03-03-2023 COVID-19 Vaccine (5 - Moderna risk series) COVID-19 Vaccine (5 - Moderna risk series) [facility] Start: 01-29-2023 End: 01-29-2023 Patient encounter procedure 01/29/2023 Office Visit Gastroenterology Mason Walls MD [address] [place] [id number] [facility] Gastroenterology Start: 12-22-2022 End: 12-22-2022 Patient encounter procedure 12/22/2022 Appointment Radiology [facility] Start: 12-22-2022 End: 12-22-2022 Patient encounter procedure 12/22/2022 Appointment Radiology [facility] Start: 12-22-2022 End: 12-22-2022 Patient encounter procedure 12/22/2022 Appointment Radiology [facility] Start: 12-05-2022 End: 12-05-2023 NM Stomach Views for gastric emptying W radionuclide PO NM GASTRIC EMPTYING STUDY Imaging Routine Indigestion Expected: 12/05/2022, Expires: 12/05/2023 [facility] Comment on above: Expected: 12/05/2022, Expires: Start: 12-04-2022 End: 12-04-2022 Professional / ancillary services management 12/04/2022 Ancillary Procedure Radiology [facility] [place] Ul[facility] Start: 10-03-2022 End: 04-01-2023 Tb cell mediated antign respnse gamma interferon TUBERCULOSIS- CELL MEDIATED I* Lab Routine Psoriasis, unspecified High risk medication use Expected: 10/03/2022, Expires: 04/01/2023 [facility] Work Phone: Comment on above: Expected: 10/03/2022, Expires: 3 Start: 08-30-2022 Influenza vaccination Influenza Vaccine (#1) [facility] Start: 07-23-2022 End: 07-23-2022 Telemedicine consultation with patient 07/23/2022 Telemedicine Dermatology Regina Bright MD [address] [id number] [facility] Start: 11-27-2021 COVID-19 Vaccine (4 - Booster for Moderna series) COVID-19 Vaccine (4 - Booster for Moderna series) [facility] Start: 11-20-2021 COVID-19 Vaccine (4 - Booster for Moderna series) COVID-19 Vaccine (4 - Booster for Moderna series) [facility] Start: 10-23-2021 COVID-19 Vaccine (4 - Booster for Moderna series) COVID-19 Vaccine (4 - Booster for Moderna series) [facility] Start: 2020 Screening for malignant neoplasm of colon [facility] Start: 2015 Screening for malignant neoplasm of breast [facility] Start: 11-30-2012 Annual wellness visit Annual Wellness Visit (G0438) [facility] Start: 2005 Screening for malignant neoplasm of cervix [facility] Start: 11-30-1999 Annual wellness visit Annual Wellness Visit (G0438) [facility] Start: 1996 Screening for malignant neoplasm of cervix Pap Smear [facility] Start: 1994 Hepatitis A (HAV) Vaccine (optional start 19+ years) Hepatitis A (HAV) Vaccine (optional start 19+ years) [facility] Start: 1994 Hepatitis B vaccination Hepatitis B (HBV) Vaccine (1 of 3 - 19+ 3-dose series) [facility] Start: 1994 Shingles (RZV) Vaccine (1 of 2) Shingles (RZV) Vaccine (1 of 2) [facility] Start: 1975 COVID-19 Vaccine ( formulation) COVID-19 Vaccine ( formulation) [facility] Start: 1975 Screening for malignant neoplasm of colon [facility] Assay of thyroid stimulating hormone tsh TSH Lab Routine Indigestion Ordered: 12/05/2022 [facility] Comment on above: Ordered: 12/05/2022 End: 07-23-2023 Basic metabolic 2000 panel - Serum or Plasma BASIC METABOLIC PANEL 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 1 Occurrences starting 07/23/2022 until [facility]: 1 Occurrences starting 07/23/2022 until 07/23/2023 CBC W Auto Differential panel - Blood COMPLETE BLOOD COUNT W/DIFF 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 Ordered: 07/23/2022 [facility] Comment on above: Ordered: 07/23/2022 Diabetes tracking panel HEMOGLOBIN A1C Lab Routine Indigestion Ordered: 12/05/2022 [facility] Work Phone: Comment on above: Ordered: 12/05/2022 Hepatic function panel HEPATIC FUNCTION PANEL 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 Ordered: 07/23/2022 [email or web address] Comment on above: Ordered: 07/23/2022 End: 11-12-2022 Introduction needle/intracatheter vein IV INSERTION Procedures Routine One time for 1 Occurrences starting 11/12/2022 until 11/12/2022 [facility] [employer] [facility] Work Phone: Comment on above: One time for 1 Occurrences starting 10/30 until 11/12/2022 Tb cell mediated antign respnse gamma interferon TUBERCULOSIS- CELL MEDIATED I* 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 Ordered: 07/23/2022 [facility] [employer] [facility] Work Phone: Comment on above: Ordered: 07/23/2022 End: 08-08-2023 Urnls dip stick/tablet rgnt auto w/o microscopy URINALYSIS,AUTO-IN OFFICE Lab STAT One time for 1 Occurrences starting 08/08/2023 until 08/08/2023 [facility] [employer] [facility] Work Phone: Comment on above: One time for 1 Occurrences starting 07/2023 until 08/08/2023 Immunizations Immunization Date Immunization Notes Care Provider Devan quick 10-05-2024 influenza virus vaccine, unspecified formulation Sheridan Jarvis CCC-A Work Phone: [facility] 10-14-2023 Influenza, injectabl e, Madin Huntington Canine Kidney, preservative free, quadrivalent 3 [facility] 10-14-2023 influenza virus vaccine, unspecified formulation To Assigned [facility] 09-12-2022 Influenza, injectabl e, [place] Canine Kidney, preservative free, quadrivalent Regina Bright MD Work Phone: [facility] 09-12-2022 influenza virus vaccine, unspecified formulation Joseph [facility]al[facility] 11-06-2021 influenza, injectabl e, quadrivalent, preservative free Alie Harper MD Work Phone: [facility] 11-06-2021 pneumococcal polysaccharide vaccine, 23 valent Alie Harper MD Work Phone: [facility] 11-06-2021 influenza virus vaccine, unspecified formulation [facility]alcup [facility] 08-28-2021 Moderna Monovalent ( 12+ yrs) COVID-19 vaccine, mRNA, spike protein, LNP, PF, 100 mcg/0.5 mL (PLI=812) Regina Bright MD Work Phone: [facility] 03-27-2021 Moderna SARS-COV-2 (COVID-19) vaccine, mRNA, spike protein, LNP, preservative free, 100 mcg/0.5 mL (primary) or 50 mcg/0.25 mL (booster) (FXZ=667) Alie Harper MD Work Phone: [facility] 02-27-2021 Moderna SARS-COV-2 (COVID-19) vaccine, mRNA, spike protein, LNP, preservative free, 100 mcg/0.5 mL (primary) or 50 mcg/0.25 mL (booster) (CUR=565) Alie Harper MD Work Phone: [facility] 08-31-2020 influenza, injectabl e, quadrivalent, preservative free Alie Harper MD Work Phone: [facility] 09-21-2019 influenza, injectabl e, quadrivalent, preservative free Alie Harper MD Work Phone: [facility] 09-21-2019 pneumococcal conjuga te vaccine, 13 valent Alie Harper MD Work Phone: [facility] 08-16-2018 influenza, injectabl e, quadrivalent, preservative free Alie Harper MD Work Phone: [facility] 12-23-2017 influenza, injectabl e, quadrivalent, preservative free Alie Harper MD Work Phone: [facility] 08-18-2016 influenza, injectabl e, quadrivalent, preservative free Alie Harper MD Work Phone: [facility] 01-10-2016 pneumococcal polysaccharide vaccine, 23 valent Alie Harper MD Work Phone: [facility] Work Phone: 01-10-2016 tetanus toxoid, redu annalise diphtheria toxoid, and acellular pertussis vaccine, adsorbed Alie Harper MD Work Phone: [facility] Payers Date Payer Category Payer Self-pay 2023 Private Health Insurance 2022 Medicare (Managed Care) [id number]. [id number] 2022 Unknown [id number] 2022 Private Health Insurance [id number] 2020 Medicaid [id number] 2020 Medicare [id number] 2019 Medicare [id number] 2017 Medicaid [id number] 2011 Medicare [id number] 1975 Unknown [id number] [id number]. 593 1975 Unknown [id number] 2.16.840.1.811789.3.579.2. 727 1975 Unknown [id number] 2.16.840.1.619915.3.579.2. 732 1975 Unknown [id number] 2.16.840.1.120821.3.579.2. 732 1975 Unknown [id number] 2.16.840.1.249482.3.579.2. 732 1975 Unknown [id number] 2.16.840.1.020871.3.579.2. 732 1975 Unknown [id number] 2.16.840.1.743047.3.579.2. 732 1975 Unknown [id number] 2.16.840.1.351860.3.579.2. 732 1975 Unknown [id number] 2.16.840.1.774040.3.579.2. 196 1975 Unknown [id number] 2.16.840.1.034537.3.579.2. 196 1975 Unknown [id number] 2.16.840.1.848422.3.579.2. 1249 1975 Unknown [id number] 2.16.840.1.119303.3.579.2. 1259 1975 Unknown [id number] 2.16.840.1.837764.3.579.2. 1259 1975 Unknown [id number] [id number]. 1259 1959 Medicaid [id number] 1959 Medicare [id number] Dental --Stand Alone DENTAL-[employer] MEDICAID Member Subscriber Plan / Payer (Effective for All Dates) Name: Heather Johns Relation to Subscriber: Self Name: Heather Johns Payer ID: Not on file Group ID: Not on file Type: Medicaid HMO Address: [address] [address] [id number] Unknown [id number]. 531 Unknown [id number]. 531 Social History Date Type Detail Facility Start: 12-18-2017 Tobacco smoking status PAIS [facility] use [facility] Start: 12-18-2017 End: 07-26-2025 Cigarettes smoked current (pack per day) - Reported 0.25 [facility] Start: 12-18-2017 End: 05-17-2025 Tobacco use and exposure Smokeless tobacco non-user [facility] Start: 05-26-2022 End: 07-26-2025 Alcohol intake Current drinker of alcohol (finding) [facility] Start: 03-02-2018 History SDOH Alcohol Comment socially [facility] Start: 1975 Sex Assigned At Female [facility] Start: 09-23-2022 History SDOH Social Connections Phone 5 [facility] Start: 09-23-2022 History SDOH Social Connections Confucianism 1 [facility] Start: 09-23-2022 History SDOH Social Connections Membership 2 [facility] Start: 09-23-2022 History SDOH Social Connections Living 3 [facility] Start: 09-22-2022 Education 11 [facility] Start: 11-02-2022 End: 02-13-2023 Exposure to SARS-CoV-2 (event) Not sure [facility] Start: 12-05-2022 End: 05-17-2025 Tobacco smoking status PAIS Ex-smoker [facility] of tobacco use [facility] Start: 05-20-2021 Gender identity Identifies as female gender (finding) [facility] Start: 05-20-2021 Sexual orientation Heterosexual (finding) [facility] Tobacco smoking status No Smokin g Status Entered [facility] Start: 09-22-2022 End: 07-26-2025 Sex Assigned At Female [facility] Within the last year , have you [...] appointments or from getting medications? No [facility] Start: 10-12-2024 End: 05-11-2025 Sex Female (finding) [facility] Tobacco smoking stat [facility] Tobacco smoking consumption unknown [facility] Start: 1975 Sex assigned at Not on file [facility] Start: 05-17-2025 Alcohol Comment Occ [facility] Functional Status Date Assessment Result Facility 01-08-2018 Are you deaf, or do you have serious difficulty hearing No 01/08/2018 4:38 PM Alexandria Morton APRN-CNP No [facility] Work Phone: 01-08-2018 Are you blind, or do you have serious difficulty seeing, even when wearing glasses No 01/08/2018 4:38 PM Alexandria Morton APRN-CNP No [facility] 01-08-2018 Do you have serious difficulty walking or climbing stairs No 01/08/2018 4:38 PM Alexandria Morton APRN-CNP No [facility] 01-08-2018 Do you have difficul ty dressing or bathing No 01/08/2018 4:38 PM Alexandria Morton APRN-CNP No [facility] 01-08-2018 Because of a physica l, mental, or emotional condition, do you have difficulty doing errands alone such as visiting a physician's office or shopping No 01/08/2018 4:38 PM Alexandria Morton APRN-CNP No [facility] Mental Status Date Assessment Result Facility 01-08-2018 Because of a physica l, mental, or emotional condition, do you have serious difficulty concentrating, remembering, or making decisions No 01/08/2018 4:38 PM Alexandria Morton APRN-CNP No [facility] Clinical Notes 05-26-2022 to 07-26-2025 John Bloom MD - 07/26/2025 9:10 AM EDTSheridan Jarvis CCC-Tiffani - 07/19/2025 1:45 PM Chel Bloom MD - 05/17/2025 10:50 AM EDT Note Date & Type Note Facility 07-26-2025 History of Present illness Narrative Subjective Patient ID: Heather Johns is a 50 y.o. female who presents for Hearing Loss (Follow up audio 07/19/25) Reflux sx improved, but only taking famotidine when takes ibuprofen. Audio normal. C/I itching ears since having audio. Family History Problem Relation Name [...] mouth Daily cholecalciferol (Vitamin D-3) 1.25 MG (18870 UT) capsule Take 50,000 Units by mouth [...] g in the evening. Take with meals. No current facility-administered medications on [...] with thyroid US documented in this encounter [facility] 07-19-2025 History of Present illness Narrative History: Pt has history of ear problems, [...] Type A tympanogram documented in this encounter [facility] 05-17-2025 History of Present illness Narrative Subjective Patient ID: Heather Johns is a 49 y.o. female who presents for Ear Problem Pt reports she awakens choking at night for 2 years. Also has US ST neck. C/O hearing loss. Tx with mucinex, flonase, claratin. REAL BAD reflux. Takes famotidine and omeprazole in the morning 3 hrs before breakfast. Thyroid US shows 8, 10 and 7mm thyroid nodules. Review of Systems All other systems reviewed and are negative. Family History Problem Relation Name Age of [...] 05/17/2025 Neuroforaminal stenosis of lumbar spine 05/17/2025 Resolved Ambulatory Problems Diagnosis Date Noted No [...] mouth Daily cholecalciferol (Vitamin D-3) 1.25 MG (76739 UT) capsule Take 50,000 Units by mouth [...] 600 mg before bedtime. Every 12 hrs. lamoTRIgine (LaMICtal) 100 MG tablet Take 25 mg by mouth Daily linaCLOtide (Linzess) 145 MCG capsule Take 145 mcg by mouth in the morning. Take before meals. Do not crush or chew. omeprazole (PriLOSEC) [address] capsule Take 40 mg by mouth in the morning. Take before meals. Do not crush or chew. sucralfate (Carafate) 1 GM/10ML suspension Take 1 g by mouth in the morning and 1 g in the evening. Take with meals. [DISCONTINUED] predniSONE (Deltasone) 20 MG tablet Take 20 mg by mouth Daily No current facility-administered medications on file prior to visit. Objective Last Recorded Vitals Vitals: 05/17/25 1054 BP: 132/81 Pulse: 99 ENT Physical Exam Constitutional Appearance: patient appears well-developed, well-nourished and well-groomed, Head and Face Appearance: head appears normal and face appears atraumatic; Ear Ear Canals: right ear canal normal; left ear canal normal; Tympanic Membranes: right tympanic membrane normal; left tympanic membrane normal; Ear comments: Willian tymps normal Nose External Nose: nares patent bilaterally; external nose normal; Internal Nose: septum normal; Oral Cavity/Oropharynx Tongue: normal; Oral mucosa: normal; Hard palate: normal; Soft palate: normal; Tonsils: normal; Base of Tongue: normal; OC/OP comments: IDL - no mass or ulcer Neck Neck: neck normal; neck palpation normal; Thyroid: thyroid normal; Respiratory Inspection: breathing unlabored; normal breathing rate; Auscultation: breath sounds are clear; Cardiovascular Inspection: extremities are warm and well perfused; no peripheral edema present; Auscultation: regular rate and rhythm; Assessment/Plan Diagnoses and all orders for this visit: Hearing loss, unspecified hearing loss type, unspecified laterality Nontoxic multinodular goiter LPRD (laryngopharyngeal reflux disease) Check audio to evaluate HL Check TFTs and repeat US in 6 mo to evaluate the MNG. Throat sx c/w LPRD. Change timing of meds and add reflux precautions. documented in this encounter [facility] 05-10-2025 Radiology Diagnostic study note [facility] Main [place] [address] [place], [place] [id number] Ultrasound Report Signed Patient: Heather Johns MR#: [id number] : 1975 Acct:[id number] Age/Sex: 49 / F ADM Date: 5 Loc: [place] Room: Type: [facility] Attending Dr: Leopoldo AKBAR Ordering Provider: Leopoldo AKBAR Date of Service: 05/10/25 MM/MM special view RT w/CAD: ABN JUAN R ([id number]) US/US breast RT limited: ABN MAMMO Copies to: Leopoldo AKBAR~ RIGHT Diagnostic Full Field digital mammogram with 3-D imaging. Full field digital CC and MLO imaging performed. CAD utilized. COMPARISON: 04/20/2025 HISTORY: Annual screening BREAST COMPOSITION: Scattered fibroglandular densities of the breast parenchyma identified BREAST CALCIFICATIONS: Benign calcifications present. VASCULAR CALCIFICATIONS: None ARCHITECTURAL DISTORTION: None BREAST NODULE: 7 mm nodularity at the T10 11:00 position 6 cm from the nipple. AXILLARY LYMPH NODES: Normal POSTSURGICAL CHANGES: None Targeted right breast ultrasound. At the 9:00 position 6 cm from nipple ovoid hypoechoic 5 mm nodule identified. US/US breast RT limited IMPRESSION: 5 mm ovoid hypoechoic right breast nodule. Probably benign. Six-month targeted right breast ultrasound recommended. RESULT CODE: 3 Probably Benign Finding Short Term Follow-Up DENSITY CODE: 2 (approximately 25-50% glandular) There are scattered areas of fibroglandular density. FOLLOW UP: 6M THE FALSE-NEGATIVE RATE OF MAMMOGRAPHY IS APPROXIMATELY 10%. IMAGING OF A PALPABLE ABNORMALITY MUST BE BASED ON CLINICAL GROUNDS. PATIENT WAS ENTERED INTO A REMINDER SYSTEM WITH A TARGET DUE DATE FOR THE NEXT MAMMOGRAM. Impression dictated by: Arsenio Oliveira M.D. 05/10/2025 10:11 AM Dictation Location: [facility] Tech: Cheryle Baker Transcribed By: ROWAN 05/10/25 1011 Dictated By: Arsenio Oliveira DO 05/10/25 1005 Signed By: 05/10/25 1011 [facility] 03-17-2025 Evaluation note Diagnosis Onset Date Resolution Hay fever acute March 17 2:05pm [facility] Work Phone: 1(707) 849-930707-25-2024 Telephone encounter Note* Telephone Encounter - Rosette Zee - 06/23/2024 1:40 PM EDT Referral queue updated. [id number] Miscellaneous Notes* Telephone Encounter - Rosette Zee - 06/23/2024 1:40 PM EDT Referral queue updated. * Telephone Encounter - Ronaldo Castillo - 06/22/2024 10:11 AM EDT Pt called in. She wanted to let the office know that her insurance is messed up and she will not bescheduling a rheum appt until this is all taken care of. The patient will call back once the insurance is fixed. Pt stated thanks for calling. * Telephone Encounter - Rosette Zee - 06/20/2024 3:22 PM EDT Please contact pt and schedule with the order in the Active Requests tab. documented in this [id number] Telephone encounter Note* Telephone Encounter - Ronaldo Castillo - 06/22/2024 10:11 AM EDT Pt called in. She wanted to let the office know that her insurance is messed up and she will not bescheduling a rheum appt until this is all taken care of. The patient will call back once the insurance is fixed. Pt stated thanks for calling. [id number] Miscellaneous Notes* Telephone Encounter - Ronaldo Castillo - 06/22/2024 10:11 AM EDT Pt called in. She wanted to let the office know that her insurance is messed up and she will not bescheduling a rheum appt until this is all taken care of. The patient will call back once the insurance is fixed. Pt stated thanks for calling. * Telephone Encounter - Rosette Zee - 06/20/2024 3:22 PM EDT Please contact pt and schedule with the order in the Active Requests tab. documented in this [id number] Telephone encounter Note* Telephone Encounter - Rosette Zee - 06/20/2024 3:22 PM EDT Please contact pt and schedule with the order in the Active Requests tab. [id number] Miscellaneous Notes* Telephone Encounter - Rosette Zee - 06/20/2024 3:22 PM EDT Please contact pt and schedule with the order in the Active Requests tab. documented in this [id number] History of Present illness Narrative* Bethany Johnson MD - 08/13/2023 11:17 AM EDT Images from the original note were not included. Gastroenterology Clinic Visit Paulina Jones, DO [address] [place] [address] Attending Physician: Dr. Bethany Johnson MD PCP: Leopoldo Woods APRN-CONVALESCENT SITTER Last GI visit: 12/05/2022 Last endoscopy: Most [...] including LFTs, BMP, CBC and EKG were non- remarkable.CT abdomen pelvis with no acute process but [...] was at 37 cm from incisors. Mucosa appearednormal. A 2 cm sliding, type 1, hiatal hernia present. Irregular z-line. Random distal and proximalbx taken to evaluate for EoE - Bottle [...] Fellow, PGY-4 Division of Gastroenterology & Hepatology [facility] GI ATTENDING: Patient seen and examined. Case discussed and reviewed with Dr. Vega. Agree with history/physical/note/findings and plan as outlined above. Bethany Johnson M.D. * George Bowens - 08/13/2023 11:00 AM EDT Patient was identified by name and date of . George BowensPatient at risk for falls:No Falls Risk protocol implemented: No documented in this [id number] Physician Emergency department Note* Paulina Jones DO - 08/08/2023 7:37 PM EDT Robert rae Abdul: CT a/pw/ NAD, d dimer less than 200 making PE or AD less likley, pt's feeling better, re exam: abdomen w/ + BS, ND, mild LUQ tenderness, no guarding/rebound. Stable for outpatient management [facility] Work Phone: 1(934) 817-665209-09-2023 Emergency department Note* Paulina Jones DO - 08/08/2023 7:37 PM EDT Robert rae Abdul: CT a/pw/ NAD, d dimer less than 200 making PE or AD less likley, pt's feeling better, re exam: abdomen w/ + BS, ND, mild LUQ tenderness, no guarding/rebound. Stable for outpatient management * Adan Martínez MD - 08/08/2023 10:57 AM EDT Physician Triage Note The patient was seen [...] BM's ok .No UTI symptoms. Went to [facility] for this problem, Exam, X-rays done. Dx [...] role in this case. PLEASE SEE OTHER ATTENDING/RESIDENT/PHYSICIAN/CONVALESCENT SITTER/PA NOTATION Adan Martínez MD documented in this [id number] Hospital Discharge instructions* Discharge Instructions* Paulina Jones DO - 08/08/2023 4:01 PM EDT Take nexium as directed. Take tylenol as directed as needed for pain. Abdominal Pain Instructions: Return to the ED if the stomach pain worsens, if it moves to the rightlower part of the stomach, or if you can't keep down liquids Chest Pain Instructions: Return to the ED if you develop shortness of breath, chest pain, coughing up blood, or pain that radiates from your chest to your back. Procedures done during this visit: None documented in this [id number] History of Present illness Narrative* Joseph Alfredo RPh - 08/08/2023 1:32 PM EDT Images from the original note were not included. Maya, Per 07/21/23 follow-up, patient is no longer using Humira until further notice due to possible respiratory infection. Patient now treating with topicals for now. Will hold Humira renewal until we hearfurther instruction for MD or patient. * Maya Andrews CPhT - 08/07/2023 2:14 PM EDT SPECIALTY PHARMACY REFERRAL (Department: DERMATOLOGY) Prior Authorization Required. Patient Information: Heather Cantu McRaimundo 1975 Specialty Medication Assessment: Medication Humira 40 mg/0.4ml Pen - Inject 0.4 ml under the skin every 14 days Current PA is set to 08/21/23 Maya Andrews CPhT [facility] [phone] option 3 documented in this [id number] NotePhysician Triage Note The patient was seen by [...] BM's ok .No UTI symptoms. Went to [facility] for this problem, Exam, X-rays done. Dx [...] role in this case. PLEASE SEE OTHER ATTENDING/RESIDENT/PHYSICIAN/CONVALESCENT SITTER/PA NOTATION [facility] Phys[facility] Emergency department Note* Adan Martínez MD - 08/08/2023 10:57 AM EDT Physician Triage Note The patient was seen [...] BM's ok .No UTI symptoms. Went to [facility] for this problem, Exam, X-rays done. Dx [...] role in this case. PLEASE SEE OTHER ATTENDING/RESIDENT/PHYSICIAN/CONVALESCENT SITTER/PA NOTATION Adan Martínez MD [facility] Work Phone: [phone]) [phone] NoteSPECIALTY PHARMACY REFERRAL (Department: DERMATOLOGY) Prior Authorization Required. Patient Information: Heather Johns 1975 Specialty Medication Assessment: Medication Humira 40 mg/0.4ml Pen - Inject 0.4 ml under the skin every 14 days Current PA is set to 08/21/23 Maya Andrews [facility] [phone] option 3The [facility] [id number] History of Present illness Narrative* Joseph Alfredo RPh - 07/22/2023 3:11 PM EDT Images from the original note were not included. Hi Dr. Grady, Please see below denial from this patient's insurance for the Vtama Cream: Please let me know how you would like to proceed. Joseph * Maya Andrews CPhT - 07/22/2023 2:58 PM EDT Images from the original note were not included. SPECIALTY PHARMACY - Prior Auth Denied- PHARMACY BENEFIT 07/22/23 1455 Specialty Med Prior Auth Info - Primary Specialty Med PA Outcome Denied Payor Approval Rx Benefit Insurance Payor [employer] Dual Medicare PA Number [id number] Denial Reason Required Step Therapy PA Notes [...] daily Unit of Measure g Is Approval [facility] Specific? N Thank you, Maya Andrews CPhT * Maya Andrews CPhT - 07/22/2023 12:28 PM EDT SPECIALTY PHARMACY - Prior Auth Submitted- PHARMACY BENEFIT Medication and dosing: vtama 1% cream - apply 2 g externally daily Insurance has been verified to be: [facility] dual medicare (optumrx) [place] submitted on date: 07/22/2023 Method submitted: epa Acosta: [id number] Pharmacy will addend this encounter with response from plan. Thank you, Maya Andrews CPhT * Joseph Alfredo [facility] - 07/22/2023 10:57 AM EDT Images from the original note were not [...] Administered Influenza, Injectable, MDCK, Preservative Free, Quadrivalent (HTE=562) 09/12/2022 Influenza, injectable, quadrivalent, preservative free (IIV4) (POR=267) 08/18/2016, 12/23/2017, 08/16/2018, 09/21/2019, 08/31/2020, 11/06/2021 Moderna Bivalent (6m-5y dose 1 or 2, 25 mcg/0.25 mL; 6-11y any dose, 25 mcg/0.25 mL; 12+ yrs any dose, 50 mcg/0.5 mL) COVID-19, mRNA, (JOM=597) 01/06/2023 Moderna Monovalent (12+ yrs) COVID-19 vaccine, mRNA, spike protein, LNP, PF, 100 mcg/0.5 mL (ZNK=579) 02/27/2021, 03/27/2021, 08/28/2021 Pneumococcal conjugate 13 valent (PCV13) (EVN=144) 09/21/2019 Pneumococcal polysaccharide 23 Valent (PPSV23) (CVX=33) 01/10/2016, 11/06/2021 Tdap (OUF=477) 01/10/2016 Is the request for initial or [...] No current facility-administered medications for this visit. Chart Notes provider (date 07/22/23) HISTORY OF PRESENT ILLNESS Visit Date: 07/21/2023 TAO: 11/12/[address] Deangelo MD Patient: Heather Johns is a 48 year old White female Reason for Visit: Psoriasis, F/U Patient is 48 year old female who presents today for follow up on psoriasis of palms and soles. Shereports that she stopped taking Humira about one [...] dorsal hands, and face and neck. ASSESSMENT & PLAN Diagnoses and all orders for this [...] until respiratory symptoms are diagnosed and treated Thank you, Joseph Alfredo, PharmD, [facility] [phone], Option #3 * Maya Andrews CPhT - 07/22/2023 10:20 AM EDT SPECIALTY PHARMACY REFERRAL (Department: DERMATOLOGY) Prior Authorization Required. Patient Information: Heather Johns 1975 Specialty Medication Assessment: Medication Vtama 1% cream - Apply 2 g externally daily Maya Andrews CPhT [facility] [phone] option 3 documented in this [id number] History of Present illness Narrative* Joseph Alfredo RPh - 07/22/2023 3:11 PM EDT Images from the original note were not included. Hi Dr. Grady, Please see below denial from this patient's insurance for the Vtama Cream: Please let me know how you would like to proceed. Joseph * Maya Andrews CPhT - 07/22/2023 2:58 PM EDT Images from the original note were not included. SPECIALTY PHARMACY - Prior Auth Denied- PHARMACY BENEFIT 07/22/23 1455 Specialty Med Prior Auth Info - Primary Specialty Med PA Outcome Denied Payor Approval Rx Benefit Insurance Payor [employer] Dual Medicare PA Number [id number] Denial Reason Required Step Therapy PA Notes [...] daily Unit of Measure g Is Approval [facility] Specific? N Thank you, Maya Andrews CPhT * Maya Andrews CPhT - 07/22/2023 12:28 PM EDT SPECIALTY PHARMACY - Prior Auth Submitted- PHARMACY BENEFIT Medication and dosing: vtama 1% cream - apply 2 g externally daily Insurance has been verified to be: [facility] dual medicare (optumrx) [place] submitted on date: 07/22/2023 Method submitted: alanis Acosta: [email or web address] Pharmacy will addend this encounter with response from plan. Thank you, Maya Andrews CPhT * Joseph Alfredo, [facility] - 07/22/2023 10:57 AM EDT Images from the original note were not included. Heather Cantu Nat 1975 SPECIALTY REFERRAL Medication: Tapinarof 1 % CREA Apply 2 g externally daily. Prescriber: Shira Gardy DO ( ) Dermatology Dept Indication for treatment (ICD-10): Psoriasis (L40.9) Allergies Allergen Reactions Morphine Confusion Naproxen Upset Stomach Penicillins Rash Toradol [Ketorolac Tromethamine] Vomiting Tramadol Upset Stomach Weight was 79.4 kg on 02/13/2023 Immunization History Administered Date(s) Administered Influenza, Injectable, MDCK, Preservative Free, Quadrivalent (DQF=304) 09/12/2022 Influenza, injectable, quadrivalent, preservative free (IIV4) (KCP=642) 08/18/2016, 12/23/2017, 08/16/2018, 09/21/2019, 08/31/2020, 11/06/2021 Moderna Bivalent (6m-5y dose 1 or 2, 25 mcg/0.25 mL; 6-11y any dose, 25 mcg/0.25 mL; 12+ yrs any dose, 50 mcg/0.5 mL) COVID-19, mRNA, (DZS=792) 01/06/2023 Moderna Monovalent (12+ yrs) COVID-19 vaccine, mRNA, spike protein, LNP, PF, 100 mcg/0.5 mL (GNY=295) 02/27/2021, 03/27/2021, 08/28/2021 Pneumococcal conjugate 13 valent (PCV13) (PDY=724) 09/21/2019 Pneumococcal polysaccharide 23 Valent (PPSV23) (CVX=33) 01/10/2016, 11/06/2021 Tdap (XHL=585) 01/10/2016 Is the request for initial or [...] No current facility-administered medications for this visit. Chart Notes provider (date 07/22/23) HISTORY OF PRESENT ILLNESS Visit Date: 07/21/2023 TAO: 11/12/[address] Deangelo MD Patient: Heather Johns is a 48 year old White female Reason for Visit: Psoriasis, F/U Patient is 48 year old female who presents today for follow up on psoriasis of palms and soles. Shereports that she stopped taking Humira about one [...] dorsal hands, and face and neck. ASSESSMENT & PLAN Diagnoses and all orders for this [...] until respiratory symptoms are diagnosed and treated Thank you, Joseph Alfredo, PharmD, [facility] [phone], Option #3 * Maya Andrews CPhT - 07/22/2023 10:20 AM EDT SPECIALTY PHARMACY REFERRAL (Department: DERMATOLOGY) Prior Authorization Required. Patient Information: Heather Cantu Nat 1975 Specialty Medication Assessment: Medication Vtama 1% cream - Apply 2 g externally daily Maya Andrews CPhT [facility] [phone] option 3 documented in this [id number] History of Present illness Narrative* Maya Andrews CPhT - 07/22/2023 2:58 PM EDT Images from the original note were not included. SPECIALTY PHARMACY - Prior Auth Denied- PHARMACY BENEFIT 07/22/23 1455 Specialty Med Prior Auth Info - Primary Specialty Med PA Outcome Denied Payor Approval Rx Benefit Insurance Payor [employer] Dual Medicare PA Number [id number] Denial Reason Required Step Therapy PA Notes [...] daily Unit of Measure g Is Approval [facility] Specific? N Thank you, Maya Andrews CPhT * Maya Andrews CPhT - 07/22/2023 12:28 PM EDT SPECIALTY PHARMACY - Prior Auth Submitted- PHARMACY BENEFIT Medication and dosing: vtama 1% cream - apply 2 g externally daily Insurance has been verified to be: [facility] dual medicare (optumrx) [place] submitted on date: 07/22/2023 Method submitted: epa Acosta: [id number] Pharmacy will addend this encounter with response from plan. Thank you, Maya Andrews CPhT * NancyshantellJoseph, [facility] - 07/22/2023 10:57 AM EDT Images from the original note were not [...] Administered Influenza, Injectable, MDCK, Preservative Free, Quadrivalent (CNS=668) 09/12/2022 Influenza, injectable, quadrivalent, preservative free (IIV4) (IJJ=033) 08/18/2016, 12/23/2017, 08/16/2018, 09/21/2019, 08/31/2020, 11/06/2021 Moderna Bivalent (6m-5y dose 1 or 2, 25 mcg/0.25 mL; 6-11y any dose, 25 mcg/0.25 mL; 12+ yrs any dose, 50 mcg/0.5 mL) COVID-19, mRNA, (RJC=702) 01/06/2023 Moderna Monovalent (12+ yrs) COVID-19 vaccine, mRNA, spike protein, LNP, PF, 100 mcg/0.5 mL (PRY=450) 02/27/2021, 03/27/2021, 08/28/2021 Pneumococcal conjugate 13 valent (PCV13) (QVY=446) 09/21/2019 Pneumococcal polysaccharide 23 Valent (PPSV23) (CVX=33) 01/10/2016, 11/06/2021 Tdap (NTM=025) 01/10/2016 Is the request for initial or [...] No current facility-administered medications for this visit. Chart Notes provider (date 07/22/23) HISTORY OF PRESENT ILLNESS Visit Date: 07/21/2023 TAO: 11/12/[address] Deangelo MD Patient: Heather Johns is a 48 year old White female Reason for Visit: Psoriasis, F/U Patient is 48 year old female who presents today for follow up on psoriasis of palms and soles. Shereports that she stopped taking Humira about one [...] dorsal hands, and face and neck. ASSESSMENT & PLAN Diagnoses and all orders for this [...] until respiratory symptoms are diagnosed and treated Thank you, Joseph Alfredo, PharmD, [facility] [phone], Option #3 * Maya Andrews CPhT - 07/22/2023 10:20 AM EDT SPECIALTY PHARMACY REFERRAL (Department: DERMATOLOGY) Prior Authorization Required. Patient Information: Heather Johns 1975 Specialty Medication Assessment: Medication Vtama 1% cream - Apply 2 g externally daily Maya Andrews CPhT [facility] [phone] option 3 documented in this [id number] History of Present illness Narrative* Maya Andrews CPhT - 07/22/2023 12:28 PM EDT SPECIALTY PHARMACY - Prior Auth Submitted- PHARMACY BENEFIT Medication and dosing: vtama 1% cream - apply 2 g externally daily Insurance has been verified to be: [facility] dual medicare (optumrx) [place] submitted on date: 07/22/2023 Method submitted: epa Acosta: [id number] Pharmacy will addend this encounter with response from plan. Thank you, Maya Andrews CPhT * NancyshantellJoseph, [facility] - 07/22/2023 10:57 AM EDT Images from the original note were not [...] Administered Influenza, Injectable, MDCK, Preservative Free, Quadrivalent (GGJ=289) 09/12/2022 Influenza, injectable, quadrivalent, preservative free (IIV4) (WFC=669) 08/18/2016, 12/23/2017, 08/16/2018, 09/21/2019, 08/31/2020, 11/06/2021 Moderna Bivalent (6m-5y dose 1 or 2, 25 mcg/0.25 mL; 6-11y any dose, 25 mcg/0.25 mL; 12+ yrs any dose, 50 mcg/0.5 mL) COVID-19, mRNA, (PEB=107) 01/06/2023 Moderna Monovalent (12+ yrs) COVID-19 vaccine, mRNA, spike protein, LNP, PF, 100 mcg/0.5 mL (MWX=008) 02/27/2021, 03/27/2021, 08/28/2021 Pneumococcal conjugate 13 valent (PCV13) (SUV=012) 09/21/2019 Pneumococcal polysaccharide 23 Valent (PPSV23) (CVX=33) 01/10/2016, 11/06/2021 Tdap (VFD=183) 01/10/2016 Is the request for initial or [...] No current facility-administered medications for this visit. Chart Notes provider (date 07/22/23) HISTORY OF PRESENT ILLNESS Visit Date: 07/21/2023 TAO: 11/12/[address] Deangelo MD Patient: Heather Johns is a 48 year old White female Reason for Visit: Psoriasis, F/U Patient is 48 year old female who presents today for follow up on psoriasis of palms and soles. Shereports that she stopped taking Humira about one [...] dorsal hands, and face and neck. ASSESSMENT & PLAN Diagnoses and all orders for this [...] until respiratory symptoms are diagnosed and treated Thank you, Joseph Alfredo, PharmD, [facility] [phone], Option #3 * Maya Andrews CPhT - 07/22/2023 10:20 AM EDT SPECIALTY PHARMACY REFERRAL (Department: DERMATOLOGY) Prior Authorization Required. Patient Information: Heather Johns 1975 Specialty Medication Assessment: Medication Vtama 1% cream - Apply 2 g externally daily Maya Andrews CPhT [facility] [phone] option 3 documented in this [id number] NoteHeather Johns 1975 SPECIALTY REFERRAL Medication: Tapinarof 1 % CREA Apply 2 g externally daily. Prescriber: Shira Grady DO ( ) Dermatology Dept Indication for treatment (ICD-10): Psoriasis (L40.9) Allergies Allergen Reactions Morphine Confusion Naproxen Upset Stomach Penicillins Rash Toradol [Ketorolac Tromethamine] Vomiting Tramadol Upset Stomach Weight was 79.4 kg on 02/13/2023 Immunization History Administered Date(s) Administered Influenza, Injectable, MDCK, Preservative Free, Quadrivalent (TRT=889) 09/12/2022 Influenza, injectable, quadrivalent, preservative free (IIV4) (UUP=240) 08/18/2016, 12/23/2017, 08/16/2018, 09/21/2019, 08/31/2020, 11/06/2021 Moderna Bivalent (6m-5y dose 1 or 2, 25 mcg/0.25 mL; 6-11y any dose, 25 mcg/0.25 mL; 12+ yrs any dose, 50 mcg/0.5 mL) COVID-19, mRNA, (POF=077) 01/06/2023 Moderna Monovalent (12+ yrs) COVID-19 vaccine, mRNA, spike protein, LNP, PF, 100 mcg/0.5 mL (CQG=775) 02/27/2021, 03/27/2021, 08/28/2021 Pneumococcal conjugate 13 valent (PCV13) (TRF=105) 09/21/2019 Pneumococcal polysaccharide 23 Valent (PPSV23) (CVX=33) 01/10/2016, 11/06/2021 Tdap (GTC=263) 01/10/2016 Is the request for initial or [...] No current facility-administered medications for this visit. Chart Notes provider (date 07/22/23) HISTORY OF [...] medication to face, eyes (more content not included)...[facility] [id number] NoteSPECIALTY PHARMACY REFERRAL (Department: DERMATOLOGY) Prior Authorization Required. Patient Information: Heather Johns 1975 Specialty Medication Assessment: Medication Vtama 1% cream - Apply 2 g externally daily Maya Andrews [facility] [phone] option 3[facility] [id number] History of Present illness Narrative* Shira Grady DO - 07/21/2023 2:30 PM EDT Documentation: Mode: Video Consent: This visit was initiated by the patient. Audio and visual communication was utilized in real-time. I confirmed understanding of risks and benefits of telehealth visits and obtained consent to proceed with the telemedicine visit. Location of Patient: Home of patient Time-Based Billing Justifications: Charting in [facility] Patient visit (including performing a medically appropriate exam) Obtaining history (or reviewing separately obtained history) HISTORY OF PRESENT ILLNESS Visit Date: 07/21/2023 TAO: 11/12/[address] Deangelo MD Patient: Heather Johns is a 48 year old White female Reason for Visit: Psoriasis, F/U Patient is 48 year old female who presents today for follow up on psoriasis of palms and soles. Shereports that she stopped taking Humira about one [...] dorsal hands, and face and neck. ASSESSMENT & PLAN Diagnoses and all orders for this [...] patient Pt advised to contact me over Accera or call office at [phone] if unable to get your medications and with questions or concerns. Return to clinic in 3 months or sooner if needed 07/20/2023, 9:10 PM. Shira Grady DO SCRIBE ATTESTATION 07/20/2023, 9:10 PM This note is prepared by Rinku Lozano acting as Scribe for Dr. Shira Grady DO. All medical record entries made by the Scribe were at my direction and personally dictated by me. Ihbill reviewed the record and confirm that the note above accurately reflects all work, treatment, procedures, and medical decision making performed by Shira watson DO. documented in this [id number] Miscellaneous Notes* Telephone Encounter - April Galo RN - 07/13/2023 2:50 PM EDT Called pt to let her know that she needs an follow up appointment per Dr. Grady. Pt states she is uncomfortable coming in for a visit and [facility] is the closest location for her. Pt wanting virtual appointment. Advised pt that I will reach out to provider to see if it is okay for a virtual appointment. Pt verbalized understanding. April Galo RN July 13, 2023 * Telephone Encounter - Dara Cobian - 07/10/2023 9:53 AM EDT Pt calling, requesting to speak with Dr. Bright. Pt states she hadn't taken the Adalimumab (Humira Pen) 40 MG/0.4ML PNKT for over two months, but starting taking it again two weeks ago. Requesting a call to advise on how often this med should be taken and if she should take it when having no symptoms. Please contact. Thanks! documented in this [id number] Telephone encounter Note* Telephone Encounter - April Galo RN - 07/13/2023 2:50 PM EDT Called pt to let her know that she needs an follow up appointment per Dr. Grady. Pt states she is uncomfortable coming in for a visit and [facility] is the closest location for her. Pt wanting virtual appointment. Advised pt that I will reach out to provider to see if it is okay for a virtual appointment. Pt verbalized understanding. April Galo RN July 13, 2023 [id number] Telephone encounter Note* Telephone Encounter - Dara Cobian - 07/10/2023 9:53 AM EDT Pt calling, requesting to speak with Dr. Bright. Pt states she hadn't taken the Adalimumab (Humira Pen) 40 MG/0.4ML PNKT for over two months, but starting taking it again two weeks ago. Requesting a call to advise on how often this med should be taken and if she should take it when having no symptoms. Please contact. Thanks! [id number] Telephone encounter Note* Telephone Encounter - Ilene Hogue RN - 04/08/2023 1:20 PM EDT Most recent visit in Dermatology was on [...] 3 years, up to 5 values) None [facility] Work Phone: 1(898) 266-585905-10-2023 Telephone encounter Note* Telephone Encounter - Bridget Stewart RN - 04/08/2023 1:20 PM EDT Most recent visit in Dermatology was on 11/12/2022 with Regina Bright MD [facility] Work Phone: 1(521) 134-584505-10-2023 Miscellaneous Notes* Telephone Encounter - Ilene Hogue RN - 04/08/2023 1:20 PM EDT Most recent visit in Dermatology was on [...] 3 years, up to 5 values) None * Telephone Encounter - Bridget Stewart RN - 04/08/2023 1:20 PM EDT Most recent visit in Dermatology was on 11/12/2022 with Regina Bright MD * Telephone Encounter - Ronit Zapata CPhT - 04/08/2023 10:08 AM EDT SPECIALTY PHARMACY - Order Request for future fills. Requested Prescriptions Pending Prescriptions Disp Refills Adalimumab (Humira Pen) 40 MG/0.4ML PNKT 2 Each 3 Sig: Inject 40 mg under the skin every 14 days. This order will be electronically sent to [facility] Most recent visit in Dermatology was [...] Pharmacy related questions may be directed to: [phone] (MEDS) option 3 Thank you, Ronit Zapata CPhT [facility] [phone] (MEDS) option 3 documented in this [id number] Telephone encounter Note* Telephone Encounter - Ronit Zapata CPhT - 04/08/2023 10:08 AM EDT SPECIALTY PHARMACY - Order Request for future fills. Requested Prescriptions Pending Prescriptions Disp Refills Adalimumab (Humira Pen) 40 MG/0.4ML PNKT 2 Each 3 Sig: Inject 40 mg under the skin every 14 days. This order will be electronically sent to [facility] Most recent visit in Dermatology was [...] Pharmacy related questions may be directed to: [phone] (MEDS) option 3 Thank you, Ronit Zapata CPhT [facility] [phone] (MEDS) option 3 [id number] History of Present illness Narrative* Maya Andrews CPhT - 02/19/2023 1:09 PM EDT Images from the original note were not included. SPECIALTY PHARMACY - Prior Auth Approved- PHARMACY BENEFIT 02/19/23 1305 Specialty Med Prior Auth Info - Primary Specialty Med PA Outcome Approval received Payor Approval Rx Benefit Insurance Payor [employer] PA Number [id number] Effective Start Date 02/19/23 Effective End Date 08/21/23 How was approval recieved? ePA workqueue ANTHONY Notes New Insurance Specialty Prior Auth Medication Details - Primary Medication(s) Humira 40 mg/0.4ml Pen Authorized Quantity 0.4 Unit of Measure mL Is Approval [facility] Specific? N The pharmacy will contact patient Heather Johns and update her on the approval status. Pharmacy to contact patient regarding next step for medication fill. Encounter to be routed to appropriate remote broadcast technician/pharmacist for medication fill outreach. Patient questions may be directed to: [phone] option 3 Thank you, Maya Andrews CPhT * Maya Andrews CPhT - 02/19/2023 9:43 AM EDT 02/18/2023 SPECIALTY PHARMACY - Prior Auth Submitted- PHARMACY BENEFIT Medication and dosing: Humira 40 mg/0.4ml pen - Inject 40 mg under the skin every 10 days Insurance has been verified to be: [facility] PA submitted on date: 02.18.2023 Method submitted: alanis Acosta: [id number] Pharmacy will addend this encounter with response from plan. Thank you, Maya Andrews CPhT * Maya Andrews CPhT - 02/19/2023 9:42 AM EDT Images from the original note were not included. 02/11/2023 - Ronit patient has a new insurance plan * Maya Andrews CPhT - 02/19/2023 9:41 AM EDT Images from the original note were not [...] fill. Encounter to be routed to appropriate remote broadcast technician/pharmacist for medication fill outreach. Patient questions may be directed to: [phone] option 3 Thank you, Maya Andrews CPhT * Maya Andrews CPhT - 02/19/2023 9:40 AM EDT 06/21/2022 SPECIALTY PHARMACY REFERRAL (Department: Dermatology) Received request to process prior authorization RENEWAL for HUMIRA for this patient: (Current priorauthorization will 07/05/22.) Patient Information: Heather Johns 1975 [address] [facility] [address] Insurance on file: ALBER ID: [id number] BIN: [id number] PCN: [id number] Group: [id number] Insurance on file: [place] ID: [id number] BIN: [id number] PCN: IS Group: [id number] Allergies Allergen Reactions [...] facility-administered medications on file prior to visit. [facility] Medical History Past Medical History: Diagnosis [...] psoriasis, started on Humira. Today, [facility] presents for follow up. 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 Has beenon Humira every 10 days as prescribed by [...] accurate as listed in chart. [facility] [phone] option 3 documented in this [id number] History of Present illness Narrative* Maya Andrews CPhT - 02/19/2023 1:09 PM EDT Images from the original note were not included. SPECIALTY PHARMACY - Prior Auth Approved- PHARMACY BENEFIT 02/19/23 1305 Specialty Med Prior Auth Info - Primary Specialty Med PA Outcome Approval received Payor Approval Rx Benefit Insurance Payor [employer] ANTHONY Number [id number] Effective Start Date 02/19/23 Effective End Date 08/21/23 How was approval recieved? Alanis workneri CRUZ Notes New Insurance Specialty Prior Auth Medication Details - Primary Medication(s) Humira 40 mg/0.4ml Pen Authorized Quantity 0.4 Unit of Measure mL Is Approval [facility] Specific? N The pharmacy will contact patient Heather Johns and update her on the approval status. Pharmacy to contact patient regarding next step for medication fill. Encounter to be routed to appropriate remote broadcast technician/pharmacist for medication fill outreach. Patient questions may be directed to: [phone] option 3 Thank you, Maya Andrews CPhT * Maya Andrews CPhT - 02/19/2023 9:43 AM EDT 02/18/2023 SPECIALTY PHARMACY - Prior Auth Submitted- PHARMACY BENEFIT Medication and dosing: Humira 40 mg/0.4ml pen - Inject 40 mg under the skin every 10 days Insurance has been verified to be: [facility] PA submitted on date: 02.18.2023 Method submitted: [facility] Acosta: [id number] Pharmacy will addend this encounter with response from plan. Thank you, Maya Andrews CPhT * Maya Andrews CPhT - 02/19/2023 9:42 AM EDT Images from the original note were not included. 02/11/2023 - Ronit patient has a new insurance plan * Maya Andrews CPhT - 02/19/2023 9:41 AM EDT Images from the original note were not [...] fill. Encounter to be routed to appropriate remote broadcast technician/pharmacist for medication fill outreach. Patient questions may be directed to: [phone] option 3 Thank you, Maya Andrews CPhT * Maya Andrews CPhT - 02/19/2023 9:40 AM EDT 06/21/2022 SPECIALTY PHARMACY REFERRAL (Department: Dermatology) Received request to process prior authorization RENEWAL for HUMIRA for this patient: (Current priorauthorization will 07/05/22.) Patient Information: Heather Johns 1975 [address] [facility] [address] Insurance on file: ALBER ID: [id number] BIN: [id number] PCN: MEDDPRIME Group: [id number] Insurance on file: [place] ID: [id number] BIN: [id number] PCN: IS Group: [id number] Allergies Allergen Reactions [...] facility-administered medications on file prior to visit. [facility] Medical History Past Medical History: Diagnosis [...] Information: Per chart notes: 05/20/21 HPI: Heather Johsn is a 45 year old female who was last seen in dermatology on 2019 for psoriasis, started on Humira. Today, [facility] presents for follow up. 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 Has beenon Humira every 10 days as prescribed by [...] accurate as listed in chart. [facility] [phone] option 3 documented in this [id number] History of Present illness Narrative* Maya Andrews CPhT - 02/18/2023 2:12 PM EDT SPECIALTY PHARMACY - Prior Auth Submitted- PHARMACY BENEFIT Medication and dosing: Humira 40 mg/0.4ml pen - Inject 40 mg under the skin every 10 days Insurance has been verified to be: [facility] PA submitted on date: 02.18.2023 Method submitted: [facility] Acosta: [id number] Pharmacy will addend this encounter with response from plan. Thank you, Maya Andrews CPhT * Joseph Alfredo, [facility] - 01/30/2023 4:42 PM EST Specialty Pharmacy Follow Up Clinical Assessment Medication: [...] compared to the last time we spoke/texted? Better- - How would you rate your pain [...] - Describe worst itching 2 - - Patient is achieving therapeutic benefit. Therapy is appropriate to continue. Specialty pharmacy to reassess patient's treatment at appropriate intervals to determine if patientis benefiting and should continue therapy. Plan of care including goals of therapy will continue cedric evaluated at least annually. Thank you, Joseph Alfredo, PharmD, [facility] [phone], Option #3 documented in this [id number] History of Present illness Narrative* Joseph Alfredo RPh - 01/30/2023 4:42 PM EST Specialty Pharmacy Follow Up Clinical Assessment Medication: [...] compared to the last time we spoke/texted? Better- - How would you rate your pain [...] - Describe worst itching 2 - - Patient is achieving therapeutic benefit. Therapy is appropriate to continue. Specialty pharmacy to reassess patient's treatment at appropriate intervals to determine if patientis benefiting and should continue therapy. Plan of care including goals of therapy will continue cedric evaluated at least annually. Thank you, Joseph Alfredo, PharmD, [facility] [phone], Option #3 documented in this [id number] Telephone encounter Note* Telephone Encounter - Ilene Hogue RN - 12/18/2022 9:05 AM EST Most recent visit in Dermatology was on [...] 3 years, up to 5 values) [email or web address] Work Phone: 1(346) 148-872501-19-2023 Miscellaneous Notes* Telephone Encounter - Ilene Hogue RN - 12/18/2022 9:05 AM EST Most recent visit in Dermatology was on [...] 3 years, up to 5 values) None * Telephone Encounter - Ronit Zapata - 12/17/2022 1:33 PM EST SPECIALTY PHARMACY - Order Request for future fills. Requested Prescriptions Pending Prescriptions Disp Refills Adalimumab (Humira Pen) 40 MG/0.4ML PNKT 2 Each 3 Sig: Inject 40 mg under the skin every 14 days. This order will be electronically sent to [facility] [place] Most recent visit in Dermatology was [...] Pharmacy related questions may be directed to: [phone] (MEDS) option 3 Thank you, Ronit Zapata [facility] [phone] (MEDS) option 3 documented in this [id number] Telephone encounter Note* Telephone Encounter - Ronit Zapata - 12/17/2022 1:33 PM EST SPECIALTY PHARMACY - Order Request for future fills. Requested Prescriptions Pending Prescriptions Disp Refills Adalimumab (Humira Pen) 40 MG/0.4ML PNKT 2 Each 3 Sig: Inject 40 mg under the skin every 14 days. This order will be electronically sent to [facility] [place] Most recent visit in Dermatology was [...] Pharmacy related questions may be directed to: [phone] (MEDS) option 3 Thank you, Ronit Zapata [facility] [phone] (MEDS) option 3 [id number] Instructions* Patient Instructions* Mason Walls MD - 12/05/2022 11:32 AM [...] 4) Gastric emptying study. documented in this [id number] History of Present illness Narrative* Mariusz Kruger MD - 12/05/2022 11:21 AM EST Gastroenterology Clinic Visit PATIENT, SELF No address [...] was at 37 cm from incisors. Mucosa appearednormal. A 2 cm sliding, type 1, hiatal hernia present. Irregular z-line. Random distal and proximalbx taken to evaluate for EoE - Bottle A. Patient tolerated procedure well. Dysphagia, unspecified type (Primary Diagnosis) [0474774] Gastroesophageal reflux disease without esophagitis [957325] Early satiety [780.94.ICD-9-CM] MICHELLE PATH SPECIMEN SENT: [...] was sent to PCP Leopoldo Woods APRN-RACHEL Walsl MD Division of Gastroenterology & Hepatology [facility] Teaching Physician Note I saw and evaluated the patient. I personally obtained the acosta and critical portions of the historyand physical exam. I reviewed the fellow's documentation and discussed the patient with the fellow.I agree with the fellow's medical decision making as documented in the fellow's note. Dr. Mariusz Kruger * Arielle Tariq - 12/05/2022 10:50 AM EST Patient was identified by name and date of . Arielle Tariq Patient at risk for falls:Yes Falls Risk protocol implemented: no documented in this [id number] Hospital Discharge instructions* Discharge Instructions* Aman Wright PA-C - 11/12/2022 9:17 PM EST Please follow-up with your primary care physician. Take Tylenol Motrin as needed for symptoms. * Attachments The following attachments cannot be sent through Care Everywhere. * Flu Discharge Instructions, Adult (Angolan) documented in this [id number] Physician Emergency department Note* Aman Wright PA-C - 11/12/2022 7:36 PM EST Images from the original note were not included. Emergency Department Attending Note HISTORY OF PRESENT ILLNESS No chief complaint on file. not needed - patient preferred language is Angolan. HIPAA:Verbal permission granted from patient to discuss case, including protected health information, in front of family / friends in room at the time of the ED evaluation. KN95 has been worn for the entirety of this patient encounter. The history is provided by the Patient. Heather Johns is a 47 year old year old female recently diagnosed with influenza today documentedhistory of GERD, IBS, thyroid disease, psoriasis on immunosuppressants, presenting to the ED today with complaints of myalgias throughout her entire body. Additionally patient tells me that she is having some chest pain. Patient notes that she was at an urgent care today because for the last 3 daysshe has been feeling sick. She notes that they found her to be positive for influenza today. She tells me they sent her to the emergency department because she was complaining of chest tightness. Shedescribes this pain as a tightness in her [...] Sexual activity: Yes Partners: Male PHYSICAL EXAM BP 106/68 Pulse (!) 113 [...] effort, satting appropriately on room air, no raleswheezing or rhonchi Abdominal: Comments: Abdomen is soft, [...] HS Troponin I: <4 Troponin is negative [IN] ED Course User Index [IN] Aman Wright PA-C I have provided 1 [...] no concerning findings other than her mild tachycardia.Patient given Tylenol and Zofran for symptomatic relief. Given her complaint, EKG is obtained and un remarkable. Chest x-ray obtained and unremarkable. Cardiac enzymes [...] effort has been made to provide a clearand accurate record. However, errors can occur. ANTONIO Mesa PA-C [facility] Work Phone: 1(166) 918-805212-14-2022 Emergency department Note* Aman Wright PA-C - 11/12/2022 7:36 PM EST Images from the original note were not included. Emergency Department Attending Note HISTORY OF PRESENT ILLNESS No chief complaint on file. not needed - patient preferred language is Angolan. HIPAA:Verbal permission granted from patient to discuss case, including protected health information, in front of family / friends in room at the time of the ED evaluation. KN95 has been worn for the entirety of this patient encounter. The history is provided by the Patient. Heather Johns is a 47 year old year old female recently diagnosed with influenza today documentedhistory of GERD, IBS, thyroid disease, psoriasis on immunosuppressants, presenting to the ED today with complaints of myalgias throughout her entire body. Additionally patient tells me that she is having some chest pain. Patient notes that she was at an urgent care today because for the last 3 daysshe has been feeling sick. She notes that they found her to be positive for influenza today. She tells me they sent her to the emergency department because she was complaining of chest tightness. Shedescribes this pain as a tightness in her [...] Sexual activity: Yes Partners: Male PHYSICAL EXAM BP 106/68 Pulse (!) 113 [...] effort, satting appropriately on room air, no raleswheezing or rhonchi Abdominal: Comments: Abdomen is soft, [...] HS Troponin I: <4 Troponin is negative [IN] ED Course User Index [IN] Aman Wright PA-C I have provided 1 [...] no concerning findings other than her mild tachycardia.Patient given Tylenol and Zofran for symptomatic relief. Given her complaint, EKG is obtained and un remarkable. Chest x-ray obtained and unremarkable. Cardiac enzymes [...] effort has been made to provide a clearand accurate record. However, errors can occur. ANTONIO Mesa PA-C documented in this [id number] History of Present illness Narrative* Regina Bright MD - 11/12/2022 10:47 AM EST Documentation: Mode: Video Consent: This visit was [...] patient/family/caregiver Ordering/interpreting (medications, tests, procedures) [facility] D[facility] Follow-up visit CC: Psoriasis HPI: [...] is starting to come back on her feet- feels like her hands and feet are [...] More than three times a week Attends [employer] Services: Never Active Member of Clubs or [...] of depression. Acitretin in relative contraindicated due tohistory of poorly controlled depression and hyperlipidemia. May consider cosentyx/ IL7 inhibitor - In interim, optimize topicals with clobetasol/ calcipotriene ointment BID to affected areas Return to clinic in 2 months. Regina Bright MD [facility] Dermatology documented in this [id number] Telephone encounter Note* Telephone Encounter - Regina Bright MD - 10/02/2022 3:29 PM EDT Patient notes that she had a fever, had diarrhea, but is now better. She is interested in switching Humira to another option. Counseled patient will need a video visit prior to this. Ok to resume humira at this time, q14 day dosing. External lab order for quantiferon placed (pt to obtain it at [facility] [facility]). Note patient unwilling to come to [facility] for labs due to concern over infection. [id number] Miscellaneous Notes* Telephone Encounter - Regina Bright MD - 10/02/2022 3:29 PM EDT Patient notes that she had a fever, had diarrhea, but is now better. She is interested in switching Humira to another option. Counseled patient will need a video visit prior to this. Ok to resume humira at this time, q14 day dosing. External lab order for quantiferon placed (pt to obtain it at [facility] [address]). Note patient unwilling to come to [facility] for labs due to concern over infection. documented in this [id number] History of Present illness Narrative* Regina Bright MD - 07/23/2022 10:13 AM EDT Documentation: Mode: Telephone Patient Patient Work Phone: Patient Cell Preferred phone: [phone] Consent: I confirmed patient understanding of the risks and benefits of telehealth visits and obtained consent to proceed with the telehealth visit. Location of Patient: Home of patient [facility] DER[facility]OLOG[facility] Follow-up visit CC: Follow up [...] visit in 1 month. Regina Bright MD [facility] Dermatology SCRIBE ATTESTATION This note is precharted by Nick Munoz acting as scribe for Regina Bright MD. Scribe was not present during visit. documented in this [id number] Telephone encounter Note* Telephone Encounter - Maya Andrews CPhT - 07/02/2022 12:42 PM EDT Images from the original note were not [...] fill. Encounter to be routed to appropriate remote broadcast technician/pharmacist for medication fill outreach. Patient questions may be directed to: [phone] option 3 Thank you, Maya Andrews CPhT [id number] Miscellaneous Notes* Telephone Encounter - Maya Andrews CPhT - 07/02/2022 12:42 PM EDT Images from the original note were not [...] fill. Encounter to be routed to appropriate remote broadcast technician/pharmacist for medication fill outreach. Patient questions may be directed to: [phone] option 3 Thank you, Maya Andrews CPhT * Telephone Encounter - Joseph Alfredo [facility] - 06/24/2022 5:58 PM EDT SPECIALTY PHARMACY REFERRAL (Department: Dermatology) Received request to process prior authorization RENEWAL for HUMIRA for this patient: (Current priorauthorization will 07/05/22.) Patient Information: Heather Johns 1975 [address] [facility] [address] Insurance on file: ALBER ID: [id number] BIN: [id number] PCN: MEDDPRIME Group: [id number] Insurance on file: CAREMARK ID: [id number] BIN: [id number] PCN: IS Group: [id number] Allergies Allergen Reactions [...] psoriasis, started on Humira. Today, [facility] presents for follow up. 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 Has beenon Humira every 10 days as prescribed by [...] as listed in chart. Joseph Alfredo RPh [facility] [phone] option 3 documented in this [id number] Telephone encounter Note* Telephone Encounter - Joseph Alfredo RPh - 06/24/2022 5:58 PM EDT SPECIALTY PHARMACY REFERRAL (Department: Dermatology) Received request to process prior authorization RENEWAL for HUMIRA for this patient: (Current priorauthorization will 07/05/22.) Patient Information: Heather Cantu McLynnlambert 1975 [address] [facility] [address] Insurance on file: ALBER ID: [id number] BIN: [id number] PCN: MEDDPRIME Group: [id number] Insurance on file: CAREMARK ID: [id number] BIN: [id number] PCN: IS Group: [id number] Allergies Allergen Reactions [...] psoriasis, started on Humira. Today, [facility] presents for follow up. 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 Has beenon Humira every 10 days as prescribed by [...] as listed in chart. Joseph Alfredo RPh [facility] [phone] option 3 [id number] Miscellaneous Notes* Telephone Encounter - Joseph Alfredo RPh - 06/24/2022 5:58 PM EDT SPECIALTY PHARMACY REFERRAL (Department: Dermatology) Received request to process prior authorization RENEWAL for HUMIRA for this patient: (Current priorauthorization will 07/05/22.) Patient Information: Heather Johns 1975 [address] [facility] [address] Insurance on file: ALBER ID: [id number] BIN: [id number] PCN: MEDDPRIME Group: [id number] Insurance on file: CAREMARK ID: [id number] BIN: [id number] PCN: IS Group: [id number] Allergies Allergen Reactions [...] 2019 for psoriasis, started on Humira. Today, se presents for follow up. 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 Has beenon Humira every 10 days as prescribed by [...] as listed in chart. Joseph Alfredo RPh [facility] [phone] option 3 documented in this [id number] History of Present illness Narrative* Alie Harper MD - 05/26/2022 1:53 PM EDT Needs meds HPI: pt needs meds for psoriasis Last script from pcp did not go through Pt overall doing ok Pt has no acute illess ROS:no F/N/V/D/Rash PMH/Problem list, Social, Meds, Allergies and FH: reviewed and updated for pertinent issues. There were no vitals taken for this visit. GEN: well appearing, NAD A/P: 46 year old Pt here for Psoriasis, unspecified [[id number]] Orders & Meds Signed During This Encounter Adalimumab 40 MG/0.4ML PNKT PT educated about above condition. Recheck as needed for persistence, worsening, or appearance of new symptoms. Pt voiced understanding and agrees to plan. Alie Harper MD [facility] note No data available for this section [facility]* Diagnosis Psoriasis, unspecified- Primary documented in [...] RUQ abdominal pain documented [facility] this [facility]* Diagnosis Onset Date Resolution Status Admit Date Right otitis media acute Novemb er 2023 1:43pm [facility] Work Phone: Evaluation note* Diagnosis Onset Date Resolution Status Admit Date Hay fever acute March 17 2:05pm [facility] Work Phone: Evaluation note* Diagnosis Hearing loss, unspecified hearing loss type, unspecified laterality- Primary Nontoxic multinodular goiter Nontoxic multinodular goiter LPRD (laryngopharyngeal reflux disease) Acute laryngitis, without mention of obstruction ETD (Eustachian tube dysfunction), bilateral documented in this encounter [facility] Healthcare[facility]* Diagnosis Sensorineural hearing loss (SNHL) 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- Primary Pulsatile tinnitus of both ears Plugged feeling in ear, bilateral documented in this encounter [facility] HealthcareEvaluation note* Diagnosis Multinodular goiter (nontoxic)- Primary Nontoxic multinodular goiter Gastroesophageal reflux disease, unspecified whether esophagitis present 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 documented in this encounter [facility] HealthcareHospital Discharge instructions No data available for this section [facility] No data available for this section [facility] Summary Purpose Family History No Family History Records Found Relationship Condition Age at Onset Recorded Date/T karly mother Diabetes mellitus Unknown Heart disease Unknown Hypertension Unknown father Hypertension Unknown High blood cholesterol Unknown Advance Directives No Advanced Directives Records FoundLatest [...] Comments 01/08/2018 4:36 PM 01/09/2018 12:51 PM Advance Directive Response Recorded Date/ Time Advance Directives No February 02 11:11am Advance Directive Response Recorded Date/ Time Advance Directives No February 02 12:11pm Reason for Referral Specialty Diagnoses / Procedures Referred By Contac t Referred To Contact Nutrition Diagnoses Indigestion Mariusz Kruger MD [address] [place] [address] [place] [address] [facility] NUTRITION [address] [place] [address] Referral ID Status Reason Start Date Expiration Date Visits Requested Visits Authorized [id number] Authorized Consultatio n-[facility] 12/05/2022 12/05/2023 3 3 Scheduling Instructions [...] Indigestion Procedures NM GASTRIC EMPTYING STUDY Gastroenterology [address] [place] [address] [facility] NUCLEAR MEDICINE [address] [place] [address] Referral ID Status Reason Start Date Expiration Date V isits Requested Visits Authorized [id number] Pending Review 12/05/2022 12/05/2023 1 1 Specialty Diagnoses / Procedures Referred By Contac t Referred To Contact Radiology Diagnoses Indigestion Procedures NM GASTRIC EMPTYING STUDY Mariusz Kruger MD [address] [place] [address] [place] [address] [facility] NUCLEAR MEDICINE [address] [place] [address] Referral ID Status Reason Start Date Expiration Date V isits Requested Visits Authorized [id number] Closed Transfer of Care-[facility] 12/16/2022 01/30/2023 1 1 Specialty Diagnoses / Procedures Referred By Contac t Referred To Contact Diagnoses Psoriasis Shira Grady DO [address] [place] [address] Referral ID Status Reason Start Date Expiration Date Visits Re quested Visits Authorized [id number] Denied 3 3 Specialty Diagnoses / Procedures Referred By Contac t Referred To Contact Gastroenterology Diagnoses Epigastric pain Gastroesophageal reflux disease, unspecified whether esophagitis present Paulina Jones DO [address] [place] [address] [facility] GASTROENTEROLOGY [address] [place] [address] Referral ID Status Reason Start Date Expiration Date V isits Requested Visits Authorized [id number] Authorized 08/08/2023 08/08/2024 3 3 Scheduling Instructions [...] pain Procedures US LIVER/GALL BLADDER/PANCREAS Leopoldo Woods, REDUCTION PLANT SUPERVISOR-CONVALESCENT SITTER [address] [id number] [facility] ULTRASOUND [address] [place] [address] Referral ID Status Reason Start Date Expiration Date Visits Re quested Visits Authorized [id number] Closed 10/15/2023 10/14/2024 1 1 Chief Complaint and Reason for Visit Chief Complaint Admit Date Congestion March 17, 2025 2:0 5pm r92.8 abnormal juan r May 10, 2025 8:05 am Reason for Visit Admit Date Hay fever March 17, 2025 2:0 5pm Chief Complaint Admit Date Poss ear infection October 12, 2024 1:43pm Reason for Visit Admit Date Right otitis media October 12, 2024 1:43pm Chief Complaint Admit Date Congestion March 17, 2025 2:0 5pm Additional Source Comments INFORMATION SOURCE (unrecogn ized section and content) DATE CREATED AUTHOR 06/28/2019 [facility] DATE CREATED AUTHOR AUTHOR'S ORGANIZ ATION 03/10/2022 [facility] DATE CREATED AUTHOR AUTHOR'S ORGANIZ ATION 02/19/2024 [facility] DATE CREATED AUTHOR AUTHOR'S ORGANIZ ATION 03/01/2024 [facility] DATE CREATED AUTHOR AUTHOR'S ORGANIZ ATION 06/23/[address] [facility] DATE CREATED AUTHOR AUTHOR'S ORGANIZ ATION 08/26/2024 [facility] DATE CREATED AUTHOR AUTHOR'S ORGANIZ ATION 04/09/2025 [facility] DATE CREATED AUTHOR AUTHOR'S ORGANIZ ATION 06/12/2025 [facility] DATE CREATED AUTHOR AUTHOR'S ORGANIZ ATION 07/28/2025 [facility] EPIC Reason for Visit (unrecogniz ed section and [...] Humira Specialty Diagnoses / Procedures Referred By Contguillermina t Referred To Contact Radiology Diagnoses Indigestion Procedures NM GASTRIC EMPTYING STUDY Mariusz Kruger MD [address] [place] [address] [place] [address] [facility] NUCLEAR MEDICINE [address] [place] [address] Referral ID Status Reason Start Date Expiration Date V isits Requested Visits Authorized [id number] Closed Transfer of Care-[facility] 12/16/2022 01/30/2023 1 1 Reason Onset [...] unspecified whether esophagitis present Paulina Jones DO [address] [place] [address] [facility] GASTROENTEROLOGY [address] [place] [address] Referral ID Status Reason Start Date Expiration Date V isits Requested Visits Authorized [id number] Authorized 08/08/2023 08/08/2024 3 3 Specialty Diagnoses / Procedures Referred By Idania verdin Referred To Contact Radiology Diagnoses Colicky RUQ abdominal pain Procedures US LIVER/GALL BLADDER/PANCREAS Leopoldo Woods, [employer] PLANT SUPERVISOR-CONVALESCENT SITTER [address] [id number] [facility] ULTRAS[facility] [address] [place] [address] Referral ID Status Reason Start Date Expiration Date Visits Re quested Visits Authorized [id number] Closed 10/15/2023 10/14/2024 1 1 Reason Onset Date Comments Returned call 06/20/2024 Reason Comments Ear Problem Reason Comments Hearing Loss Follow up audio 07/19 Care Teams (unrecognized sec tion and content) Commissions Analyst Relationship Specialty Start Date End Date Radha Negrete MD PCP - General Pediatrics 12/08/17 Antwan Woodruff MD [address] [place], [place] [id number] Fellow Gastroenterology 04/22/17 Don Moya MD [address] [place], [place] [address] Physician Orthopaedic Surgery 09/04/20 Nathaniel Ovalle MD [address] [place], [place] [address] Physician Pain Management 09/04/20 Lianne Mayo DO [address] [place] [address] [place] [address] Resident Dermatology 09/04/20 Commissions Analyst Relationship Specialty Start Date End Date Radha Negrete MD PCP - General Pediatrics 12/08/17 Antwan Woodruff MD [address] [place] [address] Fellow Gastroenterology 04/22/17 Don Moya MD [address] [place] [address] Physician Orthopaedic Surgery 09/04/20 Nathaniel Ovalle MD [address] [place] [address] Physician Pain Management 09/04/20 Lianne Mayo DO [address] [place] [address] [place] [address] Resident Dermatology 09/04/20 Karlee Sanchez MD [address] [place] [address] [place] [address] Physician Dermatology 05/31/22 Commissions Analyst Relationship Specialty Start Date End Date Radha Negrete MD PCP - General Pediatrics 12/08/17 Antwan Woodruff MD [address] [place] [address] Fellow Gastroenterology 04/22/17 Don Moya MD [address] [place] [address] Physician Orthopaedic Surgery 09/04/20 Nathaniel Ovalle MD [address] [place] [address] Physician Pain Management 09/04/20 Lianne Mayo DO [address] [place] [address] [place] [address] Resident Dermatology 09/04/20 Karlee Sanchez MD [address] [place] [address] [place] [address] Physician Dermatology 05/31/22 Commissions Analyst Relationship Specialty Start Date End Date Radha Negrete MD PCP - General Pediatrics 12/08/17 Antwan Woodruff MD [address] [place] [address] Fellow Gastroenterology 04/22/17 Don Moya MD [address] [place] [address]16 Physician Orthopaedic Surgery 09/04/20 Nathaniel Ovalle MD [address] [place] [address] 15768 Physician Pain Management 09/04/20 Lianne Mayo DO [address] [place] [address] [place] [address] Resident Dermatology 09/04/20 Karlee Sanchez MD [address] [place] [address] [place] [address] Physician Dermatology 05/31/22 Commissions Analyst Relationship Specialty Start Date End Date Radha Negrete MD PCP - General Pediatrics 12/08/17 Antwan Woodruff MD [address] [place] [address] Fellow Gastroenterology 04/22/17 Don Moya MD [address] [place] [address]42 Physician Orthopaedic Surgery 09/04/20 Nathaniel Ovalle MD [address] [place] [address] 59014 Physician Pain Management 09/04/20 Lianne Mayo DO [address] [place] [address] [place] [address] Resident Dermatology 09/04/20 Karlee Sanchez MD [address] [place] [address] [place] [address] Physician Dermatology 05/31/22 Regina Bright MD [address] [place] [address] Physician Dermatology 08/02/22 Commissions Analyst Relationship Specialty Start Date End Date ChuckLeopoldo loredo, [employer] PLANT SUPERVISOR-CONVALESCENT SITTER [address] [place] [address] PCP - General Family Medicine 11/12/22 Antwan Woodruff MD [address] [place] [address] Fellow Gastroenterology 04/22/17 Don Moya MD [address] [place] [address] 19777 Physician Orthopaedic Surgery 09/04/20 Nathaniel Ovalle MD [address] [place] [address]15 Physician Pain Management 09/04/20 Lianne Mayo DO [address] [place] [address] [place] [address] Resident Dermatology 09/04/20 Karlee Sanchez MD [address] [place] [address] [place] [address] Physician Dermatology 05/31/22 Regina Bright MD [address] [place] [address] Physician Dermatology 08/02/22 Commissions Analyst Relationship Specialty Start Date End Date Leopoldo Woods APRN-CONVALESCENT SITTER [address] [place] [address] PCP - General Family Medicine 11/12/22 Antwan Woodruff MD [address] [place] [address] Fellow Gastroenterology 04/22/17 Don Moya MD [address] [place] [address] 19708 Physician Orthopaedic Surgery 09/04/20 Nathaniel Ovalle MD [address] [place] [address]20 Physician Pain Management 09/04/20 Lianne Mayo DO [address] [place] [address] [place] [address] Resident Dermatology 09/04/20 Karlee Sanchez MD [address] [place] [address] [place] [address] Physician Dermatology 05/31/22 Regina Bright MD [address] [place] [address] Physician Dermatology 08/02/22 Commissions Analyst Relationship Specialty Start Date End Date Leopoldo Woods APRN-CONVALESCENT SITTER [address] [place] [address] PCP - General Family Medicine 11/12/22 Antwan Woodruff MD [address] [place] [address] Fellow Gastroenterology 04/22/17 Don Moya MD [address] [place] [address]953 Physician Orthopaedic Surgery 09/04/20 Nathaniel Ovalle MD [address] [place] [address] 48450 Physician Pain Management 09/04/20 Lianne Mayo DO [address] [place] [address] [place] [address] Resident Dermatology 09/04/20 Karlee Sanchez MD [address] [place] [address] [place] [address] Physician Dermatology 05/31/22 Regina Bright MD [address] [place] [address] Physician Dermatology 08/02/22 Commissions Analyst Relationship Specialty Start Date End Date Leopoldo Woods APR[id number] [place] [address] PCP - General Family Medicine 11/12/22 Antwan Woodruff MD [address] [place] [address] Fellow Gastroenterology 04/22/17 Don Moya MD [address] [place] [address] 25562 Physician Orthopaedic Surgery 09/04/20 Nathaniel Ovalle MD [address] [place] [address] 96147 Physician Pain Management 09/04/20 Lianne Mayo DO [address] [place] [address] [place] [address] Resident Dermatology 09/04/20 Karlee Sanchez MD [address] [place] [address] [place] [address] Physician Dermatology 05/31/22 Regina Bright MD [address] [place] [address]88 Physician Dermatology 08/02/22 Commissions Analyst Relationship Specialty Start Date End Date Leopoldo Woods REDU[employer] PLANT SUPERVISOR-CONVALESCENT SITTER [address] [place] [address] PCP - General Family Medicine 11/12/22 Antwan Woodruff MD [address] [place] [address] Fellow Gastroenterology 04/22/17 Don Moya MD [address] [place] [address] 22861 Physician Orthopaedic Surgery 09/04/20 Nathaniel Ovalle MD [address] [place] [address] 66725 Physician Pain Management 09/04/20 Lianne Mayo DO [address] [place] [address] [place] [address] Resident Dermatology 09/04/20 Karlee Sanchez MD [address] [place] [address] [place] [address] Physician Dermatology 05/31/22 Regina Bright MD [address] [place] [address]992 Physician Dermatology 08/02/22 Commissions Analyst Relationship Specialty Start Date End Date Leopoldo Woods REDU[employer] PLANT SUPERVISOR-CONVALESCENT SITTER [address] [place] [address] PCP - General Family Medicine 11/12/22 Antwan Woodruff MD [address] [place] [address] 26992 Fellow Gastroenterology 04/22/17 Don Moya MD [address] [place] [address] 71488 Physician Orthopaedic Surgery 09/04/20 Nathaniel Ovalle MD [address] [place] [address] 75843 Physician Pain Management 09/04/20 Lianne Mayo DO [address] [place] [address] [place] [address] Resident Dermatology 09/04/20 Karlee Sanchez MD [address] [place] [address] [place] [address] Physician Dermatology 05/31/22 Regina Bright MD [address] [place] [address] 57616 Physician Dermatology 08/02/22 Commissions Analyst Relationship Specialty Start Date End Date Leopoldo Woods, [employer] PLANT SUPERVISOR-CONVALESCENT SITTER [address] [place] [address] PCP - General Family Medicine 11/12/22 Antwan Woodruff MD [address] [place] [address] 13721 Fellow Gastroenterology 04/22/17 Don Moya MD [address] [place] [address] 96955 Physician Orthopaedic Surgery 09/04/20 Nathaniel Ovalle MD [address] [place] [address] 64169 Physician Pain Management 09/04/20 Lianne Mayo DO [address] [place] [address] [place] [address] Resident Dermatology 09/04/20 Karlee Sanchez MD [address] [place] [address] [place] [address] Physician Dermatology 05/31/22 Regina Bright MD [address] [place] [address] 77148 Physician Dermatology 08/02/22 Commissions Analyst Relationship Specialty Start Date End Date Leopoldo Woods, REDU[employer] PLANT SUPERVISOR-CONVALESCENT SITTER [address] [place] [address] PCP - General Family Medicine 11/12/22 Antwan Woodruff MD [address] [place] [address] 75466 Fellow Gastroenterology 04/22/17 Don Moya MD [address] [place] [address] 38736 Physician Orthopaedic Surgery 09/04/20 Nathaniel Ovalle MD [address] [place] [address] 96239 Physician Pain Management 09/04/20 Lianne Mayo DO [address] [place] [address] [place] [address] Resident Dermatology 09/04/20 Karlee Sanchez MD [address] [place] [address] [place] [address] Physician Dermatology 05/31/22 Regina Bright MD [address] [place] [address] 78457 Physician Dermatology 08/02/22 Commissions Analyst Relationship Specialty Start Date End Date ChuckTonyy REDUCTION PLANT SUPERVISOR-CONVALESCENT SITTER [address] [place] [address] PCP - General Family Medicine 11/12/22 Antwan Woodruff MD [address] [place] [address] 76706 Fellow Gastroenterology 04/22/17 Don Moya MD [address] [place] [address] 32193 Physician Orthopaedic Surgery 09/04/20 Nathaniel Ovalle MD [address] [place] [address] 64169 Physician Pain Management 09/04/20 Lianne Mayo DO [address] [place] [address] [place] [address] Resident Dermatology 09/04/20 Karlee Sanchez MD [address] [place] [address] [place] [address] Physician Dermatology 05/31/22 Regina Bright MD [address] [place] [address] 83754 Physician Dermatology 08/02/22 Commissions Analyst Relationship Specialty Start Date End Date Leopoldo Woods APRN-CONVALESCENT SITTER [address] [place] [address] PCP - General Family Medicine 11/12/22 Antwan Woodruff MD [address] [place] [address] 11651 Fellow Gastroenterology 04/22/17 Don Moya MD [address] [place] [address] 09601 Physician Orthopaedic Surgery 09/04/20 Nathaniel Ovalle MD [address] [place] [address] 47612 Physician Pain Management 09/04/20 Lianne Mayo DO [address] [place] [address] [place] [address] Resident Dermatology 09/04/20 Karlee Sanchez MD [address] [place] [address] [place] [address] Physician Dermatology 05/31/22 Regina Bright MD [address] [place] [address] 28505 Physician Dermatology 08/02/22 Commissions Analyst Relationship Specialty Start Date End Date ChuckLeopoldo loredo, REDUCTION PLANT SUPERVISOR-[id number] [place] [address] PCP - General Family Medicine 11/12/22 Antwan Woodruff MD [address] [place] [address] 43212 Fellow Gastroenterology 04/22/17 Don Moya MD [address] [place] [address] 54017 Physician Orthopaedic Surgery 09/04/20 Nathaniel Ovalle MD [address] [place] [address] 65229 Physician Pain Management 09/04/20 Lianne Mayo DO [address] [place] [address] [place] [address] Resident Dermatology 09/04/20 Karlee Sanchez MD [address] [place] [address] [place] [address] Physician Dermatology 05/31/22 Regina Bright MD [address] [place] [address] 15454 Physician Dermatology 08/02/22 Commissions Analyst Relationship Specialty Start Date End Date Leopoldo Woods [employer] PLANT SUPERVISOR-CONVALESCENT SITTER [address] [place] [address] PCP - General Family Medicine 11/12/22 Antwan Woodruff MD [address] [place] [address] 45691 Fellow Gastroenterology 04/22/17 Don Moya MD [address] [place] [address] 57015 Physician Orthopaedic Surgery 09/04/20 Nathaniel Ovalle MD [address] [place] [address] 60736 Physician Pain Management 09/04/20 Lianne Mayo DO [address] [place] [address] [place] [address] Resident Dermatology 09/04/20 Karlee Sanchez MD [address] [place] [address] [place] [address] Physician Dermatology 05/31/22 Regina Bright MD [address] [place] [address] 58840 Physician Dermatology 08/02/22 Mason Walls MD [address] [place] [address] 57532 Fellow Gastroenterology 01/03/23 Commissions Analyst Relationship Specialty Start Date End Date ChuckLeopoldo APRN-CONVALESCENT SITTER [address] [place] [address] PCP - General Family Medicine 11/12/22 Antwan Woodruff MD [address] [place] [address] 86703 Fellow Gastroenterology 04/22/17 Don Moya MD [address] [place] [address] 49629 Physician Orthopaedic Surgery 09/04/20 Nathaniel Ovalle MD [address] [place] [address] 88023 Physician Pain Management 09/04/20 Lianne Mayo DO [address] [place] [address] [place] [address] Resident Dermatology 09/04/20 Karlee Sanchez MD [address] [place] [address] [place] [address] Physician Dermatology 05/31/22 Regina Bright MD [address] [place] [address] 68188 Physician Dermatology 08/02/22 Mason Walls MD [address] [place] [address] 68812 Fellow Gastroenterology 01/03/23 Commissions Analyst Relationship Specialty Start Date End Date Chuck Leopoldo, [employer]ANT SUPERVISOR-CONVALESCENT SITTER [address] [place] [address] 25771 PCP - General Family Medicine 11/12/22 Antwan Woodruff MD [address] [place] [address] 42698 Fellow Gastroenterology 04/22/17 Don Moya MD [address] [place] [address] 09641 Physician Orthopaedic Surgery 09/04/20 Nathaniel Ovalle MD [address] [place] [address] 42480 Physician Pain Management 09/04/20 Lianne Mayo DO [address] [place] [address] [place] [address] Resident Dermatology 09/04/20 Karlee Sanchez MD [address] [place] [address] [place] [address] Physician Dermatology 05/31/22 Regina Bright MD [address] [place] [address] 13076 Physician Dermatology 08/02/22 Commissions Analyst Relationship Specialty Start Date End Date Leopoldo Woods, [employer] SUPERVISOR-CONVALESCENT SITTER [address] [place] [address] PCP - General Family Medicine 11/12/22 Antwan Woodruff MD [address] [place] [address] 55753 Fellow Gastroenterology 04/22/17 Don Moya MD [address] [place] [address] 24487 Physician Orthopaedic Surgery 09/04/20 Nathaniel Ovalle MD [address] [place] [address] 42604 Physician Pain Management 09/04/20 Lianne Mayo DO [address] [place] [address] [place] [address] Resident Dermatology 09/04/20 Karlee Sanchez MD [address] [place] [address] [place] [address] Physician Dermatology 05/31/22 Regina Bright MD [address] [place] [address] 63555 Physician Dermatology 08/02/22 Mason Walls MD [address] [place] [address] 14279 Fellow Gastroenterology 01/03/23 Commissions Analyst Relationship Specialty Start Date End Date Leopoldo Woods, [employer]ANT SUPERVISOR-CONVALESCENT SITTER [address] [place] [address] PCP - General Family Medicine 11/12/22 Antwan Woodruff MD [address] [place] [address] 70721 Fellow Gastroenterology 04/22/17 Don Moya MD [address] [place] [address] 95626 Physician Orthopaedic Surgery 09/04/20 Nathaniel Ovalle MD [address] [place] [address] 45354 Physician Pain Management 09/04/20 Lianne Mayo DO [address] [place] [address] [place] [address] Resident Dermatology 09/04/20 Karlee Sanchez MD [address] [place] [address] [place] [address] Physician Dermatology 05/31/22 Regina Bright MD [address] [place] [address] 04245 Physician Dermatology 08/02/22 Mason Walls MD [address] [place] [address] 60608 Fellow Gastroenterology 01/03/23 Commissions Analyst Relationship Specialty Start Date End Date Leopoldo Woods, [employer] PLANT SUPERVISOR-CONVALESCENT SITTER [address] [place] [address] PCP - General Family Medicine 11/12/22 Antwan Woodruff MD [address] [place] [address] 06596 Fellow Gastroenterology 04/22/17 Don Moya MD [address] [place] [address] 74270 Physician Orthopaedic Surgery 09/04/20 Nathaniel Ovalle MD [address] [place] [address] 76938 Physician Pain Management 09/04/20 Lianne Mayo DO [address] [place] [address] [place] [address] Resident Dermatology 09/04/20 Karlee Sanchez MD [address] [place] [address] [place] [address] Physician Dermatology 05/31/22 Regina Bright MD [address] [place] [address] 85692 Physician Dermatology 08/02/22 Mason Walls MD [address] [place] [address] 80761 Fellow Gastroenterology 01/03/23 Commissions Analyst Relationship Specialty Start Date End Date Leopoldo Woods, REDUCTION PLANT SUPERVISOR-[address] [address] PCP - General Family Medicine 11/12/22 Antwan Woodruff MD [address] [place] [address] 63027 Fellow Gastroenterology 04/22/17 Don Moya MD [address] [place] [address] 40126 Physician Orthopaedic Surgery 09/04/20 Nathaniel Ovalle MD [address] [place] [address] 34253 Physician Pain Management 09/04/20 Lianne Mayo DO [address] [place] [address] [place] [address] Resident Dermatology 09/04/20 Karlee Sanchez MD [address] [place] [address] [place] [address] Physician Dermatology 05/31/22 Regina Bright MD [address] [place] [address] 51415 Physician Dermatology 08/02/22 Mason Walls MD [address] [place] [address] 47302 Fellow Gastroenterology 01/03/23 Joseph Alfredo [place] [phone] Pharmacist 03/06/23 Ronit Zapata CPhT Tech Pharmacology and Toxicology 03/06/23 Maya Andrews CPhT [address] [place] [address] [place] [address] Medication Tallow Pumper Pharmacology and Toxicology 03/06/23 Commissions Analyst Relationship Specialty Start Date End Date Leopoldo WoodsDAVID-CONVALESCENT SITTER [address] [place], [place] [id number] PCP - General Family Medicine 11/12/22 Antwan Woodruff MD [address] [place] [address] 61418 Fellow Gastroenterology 04/22/17 Don Moya MD [address] [place] [address] 28842 Physician Orthopaedic Surgery 09/04/20 Nathaniel Ovalle MD [address] [place] [address] 43434 Physician Pain Management 09/04/20 Lianne Mayo DO [address] [place] [address] [place] [address] Resident Dermatology 09/04/20 Karlee Sanchez MD [address] [place] [address] DR [place] [phone] Physician Dermatology 05/31/22 Regina Bright MD [address] [place] [address] Physician Dermatology 08/02/22 Mason Walls MD [address] [place] [address] Fellow Gastroenterology 01/03/23 Joseph Alfredo, [place] [phone] Pharmacist 03/06/23 05/12/23 Ronit Zapata [facility] Tech Pharmacology and Toxicology 03/06/23 05/12/23 Maya Andrews [address] [place] [phone] Medication Tallow Pumper Pharmacology and Toxicology 03/06/23 05/12/23 Commissions Analyst Relationship Specialty Start Date End Date Leopoldo Woods APRN-CONVALESCENT SITTER [address] [place] [address] 90636 PCP - General Family Medicine 11/12/22 Antwan Woodruff MD [address] [place] [address] 98329 Fellow Gastroenterology 04/22/17 Don Moya MD [address] [place] [address] 15209 Physician Orthopaedic Surgery 09/04/20 Nathaniel Ovalle MD [address] [place] [address] 77794 Physician Pain Management 09/04/20 Lianne Mayo DO [address] [place] [address] [place] [address] Resident Dermatology 09/04/20 Karlee Sanchez MD [address] [place] [address] [address] [place] [phone] Physician Dermatology 05/31/22 Regina Bright MD [address] [place] [address] Physician Dermatology 08/02/22 Mason Walls MD [address] [place], [place] 5485809 Fellow Gastroenterology 01/03/23 Joseph Alfredo, [address] [address] Pharmacist 03/06/23 05/12/23 Ronit Zapata, [facility] Tech Pharmacology and Toxicology 03/06/23 05/12/23 Maya Andrews, [address] [place] [address] Medication Tallow Pumper Pharmacology and Toxicology 03/06/23 05/12/23 Commissions Analyst Relationship Specialty Start Date End Date Leopoldo Woods APRN-CONVALESCENT SITTER [address] [place], [place] [id number] PCP - General Family Medicine 11/12/22 Antwan Woodruff MD [address] [place] [address] 84762 Fellow Gastroenterology 04/22/17 Don Moya MD [address] [place] [address] 07098 Physician Orthopaedic Surgery 09/04/20 Nathaniel Ovalle MD [address] [place] [address] 63865 Physician Pain Management 09/04/20 Lianne Mayo DO [address] [place] [address] [place] [address] Resident Dermatology 09/04/20 Karlee Sanchez MD [address] [place] [address] [place] [address] Physician Dermatology 05/31/22 Regina Bright MD [address] [place] [address] 22962 Physician Dermatology 08/02/22 Mason Walls MD [address] [place] [address] 38382 Fellow Gastroenterology 01/03/23 Commissions Analyst Relationship Specialty Start Date End Date Leopoldo Woods APRN-CONVALESCENT SITTER [address] [place] [address] [phone] PCP - General Family Medicine 11/12/22 Antwan Woodruff MD [address] [place] [address] 29762 Fellow Gastroenterology 04/22/17 Don oMya MD [address] [place] [address] 34450 Physician Orthopaedic Surgery 09/04/20 Nathaniel Ovalle MD [address] [place] [address] 90888 Physician Pain Management 09/04/20 Lianne Mayo DO [address] [place] [address] [place] [address] Resident Dermatology 09/04/20 Karlee Sanchez MD [address] [place] [address] DR [place] [phone] Physician Dermatology 05/31/22 Regina Bright MD [address] [place] [address] Physician Dermatology 08/02/22 Mason Walls MD [address] [place], [place] 5485809 Fellow Gastroenterology 01/03/23 Joseph Alfredo [place] [phone] Pharmacist 07/22/23 Ronit Zapata, [facility] Tech Pharmacology and Toxicology 07/22/23 Maya Andrews [address] [place] [phone] Medication Tallow Pumper Pharmacology and Toxicology 07/22/23 Commissions Analyst Relationship Specialty Start Date End Date Leopoldo Woods APRN-CONVALESCENT SITTER [address] [place], [place] [id number] PCP - General Family Medicine 11/12/22 Antwan Woodruff MD [address] [place], [place] [phone] Fellow Gastroenterology 04/22/17 Don Moya MD [address] [place] [address] Physician Orthopaedic Surgery 09/04/20 Nathaniel Ovalle MD [address] [place] [address] 36151 Physician Pain Management 09/04/20 Lianne Mayo DO [address] [place] [address] [place] [address] Resident Dermatology 09/04/20 Karlee Sanchez MD [address] [place] [address] [address] [place] [phone] Physician Dermatology 05/31/22 Regina Bright MD [address] [place] [address] Physician Dermatology 08/02/22 Mason Walls MD [address] [place], [place] 5485809 Fellow Gastroenterology 01/03/23 Joseph Alfredo [place] [phone] Pharmacist 07/22/23 Ronit Zapata, [facility] Tech Pharmacology and Toxicology 07/22/23 Maya Andrews [address] [place] [phone] Medication Tallow Pumper Pharmacology and Toxicology 07/22/23 Commissions Analyst Relationship Specialty Start Date End Date Leopoldo Woods APRN-CONVALESCENT SITTER [address] [place], [place] [id number] PCP - General Family Medicine 11/12/22 Antwan Woodruff MD [address] [place], [place] [phone] Fellow Gastroenterology 04/22/17 Don Moya MD [address] [place] [address] Physician Orthopaedic Surgery 09/04/20 Nathaniel Ovalle MD [address] [place] [address] 99965 Physician Pain Management 09/04/20 Lianne Mayo DO [address] [place] [address] [place] [address] Resident Dermatology 09/04/20 Karlee Sanchez MD [address] [place] [address] [address] [place] [phone] Physician Dermatology 05/31/22 Regina Bright MD [address] [place] [address] Physician Dermatology 08/02/22 Mason Walls MD [address] [place], [place] 5485809 Fellow Gastroenterology 01/03/23 Joseph Alfredo [place] [phone] Pharmacist 07/22/23 Ronit Zapata, [facility] Tech Pharmacology and Toxicology 07/22/23 Maya Andrews [address] [place] [phone] Medication Tallow Pumper Pharmacology and Toxicology 07/22/23 Commissions Analyst Relationship Specialty Start Date End Date Leopoldo Woods APRN-CONVALESCENT SITTER [address] [place], [place] [id number] PCP - General Family Medicine 11/12/22 Antwan Woodruff MD [address] [place], [place] [phone] Fellow Gastroenterology 04/22/17 Don Moya MD [address] [place] [address] Physician Orthopaedic Surgery 09/04/20 Nathaniel Ovalle MD [address] [place] [address] 05311 Physician Pain Management 09/04/20 Lianne Mayo DO [address] [place] [address] [place] [address] Resident Dermatology 09/04/20 Karlee Sanchez MD [address] [place] [address] [place] [address] Physician Dermatology 05/31/22 Regina Bright MD [address] [place] [address] 39542 Physician Dermatology 08/02/22 Mason Walls MD [address] [place] [address] 38215 Fellow Gastroenterology 01/03/23 Commissions Analyst Relationship Specialty Start Date End Date Leopoldo Woods APRN-CONVALESCENT SITTER [address] [place] [address] 56739 PCP - General Family Medicine 11/12/22 Antwan Woodruff MD [address] [place] [address] 34955 Fellow Gastroenterology 04/22/17 Don Moya MD [address] [place] [address] 34324 Physician Orthopaedic Surgery 09/04/20 Nathaniel Ovalle MD [address] [place] [address] 28721 Physician Pain Management 09/04/20 Lianne Mayo DO [address] [place] [address] [place] [address] Resident Dermatology 09/04/20 Karlee Sanchez MD [address] [place] [address] [place] [address] Physician Dermatology 05/31/22 Regina Bright MD [address] [place] [address] Physician Dermatology 08/02/22 Mason Walls MD [address] [place] [address] Fellow Gastroenterology 01/03/23 Joseph Alfredo, [place] [phone] Pharmacist 07/22/23 Ronit Zapata, [facility] Tech Pharmacology and Toxicology 07/22/23 Maya Andrews, [address] [place] [phone] Medication Tallow Pumper Pharmacology and Toxicology 07/22/23 Shira Grady DO [address] [place] [address] [place] [address] Physician Dermatology 08/01/23 Commissions Analyst Relationship Specialty Start Date End Date Leopoldo Woods, DAVID-CONVALESCENT SITTER [address] [place], [place] [id number] PCP - General Family Medicine 11/12/22 Antwan Woodruff MD [address] [place] [address] Fellow Gastroenterology 04/22/17 Don Moya MD [address] [place] [address] Physician Orthopaedic Surgery 09/04/20 Nathaniel Ovalle MD [address] [place] [address] 18334 Physician Pain Management 09/04/20 Lianne Mayo DO [address] [place] [address] [place] [address] Resident Dermatology 09/04/20 Karlee Sanchez MD [address] [place] [address] [address] [place] [phone] Physician Dermatology 05/31/22 Regina Bright MD [address] [place] [address] Physician Dermatology 08/02/22 Mason Walls MD [address] [place], [place] [phone] Fellow Gastroenterology 01/03/23 Joseph Alfredo [place] [phone] Pharmacist 07/22/23 Ronit Zapata CPhT Tech Pharmacology and Toxicology 07/22/23 Maya Andrews [address] [place] [phone] Medication Tallow Pumper Pharmacology and Toxicology 07/22/23 Shira Grady DO [address] [place] [address] DR [place] [phone] Physician Dermatology 08/01/23 Commissions Analyst Relationship Specialty Start Date End Date ChuckLeopoldo loredoDAVID-CONVALESCENT SITTER [address] [place], [place] [id number] PCP - General Family Medicine 11/12/22 Antwan Woodruff MD [address] [place] [address] 66258 Fellow Gastroenterology 04/22/17 Don Moya MD [address] [place] [address] 78186 Physician Orthopaedic Surgery 09/04/20 Nathaniel Ovalle MD [address] [place] [address] 95207 Physician Pain Management 09/04/20 Lianne Mayo DO [address] [place] [address] [place] [address] Resident Dermatology 09/04/20 Karlee Sanchez MD [address] [place] [address] DR [place] [phone] Physician Dermatology 05/31/22 Regina Bright MD [address] [place] [address] Physician Dermatology 08/02/22 Mason Walls MD [address] [place] [address] Fellow Gastroenterology 01/03/23 Joseph Alfredo, [place] [phone] Pharmacist 07/22/23 Ronit Zapata [facility] Tech Pharmacology and Toxicology 07/22/23 Maya Andrews CPhT [address] [place] [address] DR [place] [phone] Medication Tallow Pumper Pharmacology and Toxicology 07/22/23 Shira Grady DO [address] [place] [address] [place] [address] Physician Dermatology 08/01/23 Commissions Analyst Relationship Specialty Start Date End Date Leopoldo Woods APRN-CONVALESCENT SITTER [address] [place] [address] 16431 PCP - General Family Medicine 11/12/22 Antwan Woodruff MD [address] [place] [address] 94537 Fellow Gastroenterology 04/22/17 Don Moya MD [address] [place] [address] 31297 Physician Orthopaedic Surgery 09/04/20 Nathaniel Ovalle MD [address] [place] [address] 88282 Physician Pain Management 09/04/20 Lianne Mayo DO [address] [place] [address] [place] [address] Resident Dermatology 09/04/20 Karlee Sanchez MD [address] [place] [address] [place] [address] Physician Dermatology 05/31/22 Regina Bright MD [address] [place] [address] Physician Dermatology 08/02/22 Mason Walls MD [address] [place] [address] Fellow Gastroenterology 01/03/23 Joseph Alfredo, [address] [address] Pharmacist 07/22/23 Ronit Zapata, [facility] Tech Pharmacology and Toxicology 07/22/23 Maya Andrews [address] [place] [address] Medication Tallow Pumper Pharmacology and Toxicology 07/22/23 Shira Grady DO [address] [place] [address] [place] [address] Physician Dermatology 08/01/23 Commissions Analyst Relationship Specialty Start Date End Date Leopoldo Woods APRN-CONVALESCENT SITTER [facility] [place] [address] PCP - General Family Medicine 11/12/22 Antwan Woodruff MD [address] [place] [address] 58607 Fellow Gastroenterology 04/22/17 Don Moya MD [address] [place] [address] 56538 Physician Orthopaedic Surgery 09/04/20 Nathaniel Ovalle MD [address] [place] [address] 65628 Physician Pain Management 09/04/20 Lianne Mayo DO [address] [place] [address] [place] [address] Resident Dermatology 09/04/20 Karlee Sanchez MD [address] [place] [address] [place] [address] Physician Dermatology 05/31/22 Regina Bright MD [address] [place] [address] Physician Dermatology 08/02/22 Mason Walls MD [address] [place] [address] 82703 Fellow Gastroenterology 01/03/23 Joseph Alfredo [address] [address] Pharmacist 07/22/23 Ronit Zaptaa [facility] Tech Pharmacology and Toxicology 07/22/23 Maya Andrews CPhT [address] [place] [address] [place] [address] Medication Tallow Pumper Pharmacology and Toxicology 07/22/23 Shira Grady DO [address] [place] [address] [place] [address] Physician Dermatology 08/01/23 Commissions Analyst Relationship Specialty Start Date End Date Leopoldo Woods, DAVID-CONVALESCENT SITTER [facility] [place] [address] PCP - General Family Medicine 11/12/22 Antwan Woodruff MD [address] [place] [address] 05168 Fellow Gastroenterology 04/22/17 Don Moya MD [address] [place] [address] 52106 Physician Orthopaedic Surgery 09/04/20 Nathaniel Ovalle MD [address] [place] [address] 67132 Physician Pain Management 09/04/20 Lianne Mayo DO [address] [place] [address] [place] [address] Resident Dermatology 09/04/20 Karlee Sanchez MD [address] [place] [address] [place] [address] Physician Dermatology 05/31/22 Regina Bright MD [address] [place] [address] 89799 Physician Dermatology 08/02/22 Mason Walls MD [address] [place] [address] 27324 Fellow Gastroenterology 01/03/23 Joseph Alfredo, [address] [address] Pharmacist 07/22/23 08/28/23 Ronit Zapata [facility] Tech Pharmacology and Toxicology 07/22/23 08/28/23 Maya Andrews CPhT [address] [place] [address] [place] [address] Medication Tallow Pumper Pharmacology and Toxicology 07/22/23 08/28/23 Shira Grady DO [address] [place] [address] [place] [address] Physician Dermatology 08/01/23 Commissions Analyst Relationship Specialty Start Date End Date Leopoldo Woods APRN-CONVALESCENT SITTER [facility] [place] [address] PCP - General Family Medicine 11/12/22 Antwan Woodruff MD [address] [place] [address] 18071 Fellow Gastroenterology 04/22/17 Don Moya MD [address] [place] [address] 39836 Physician Orthopaedic Surgery 09/04/20 Nathaniel Ovalle MD [address] [place] [address] 55113 Physician Pain Management 09/04/20 Lianne Mayo DO [address] [place] [address] [place] [address] Resident Dermatology 09/04/20 Karlee Sanchez MD [address] [place] [address] [place] [address] Physician Dermatology 05/31/22 Regina Bright MD [address] [place] [address] 13356 Physician Dermatology 08/02/22 Mason Walls MD [address] [place] [address] 88500 Fellow Gastroenterology 01/03/23 Shira Grady DO [address] [place] [address] [place] [address] Physician Dermatology 08/01/23 Mack Vega MD [address] [place] [address] 33215 Fellow Gastroenterology 09/05/23 Commissions Analyst Relationship Specialty Start Date End Date Leopoldo Woods APRN-CONVALESCENT SITTER [address] [place] [address] 13477 PCP - General Family Medicine 11/12/22 Antwan Woodruff MD [address] [place] [address] 98686 Fellow Gastroenterology 04/22/17 Don Moya MD [address] [place] [address] 86075 Physician Orthopaedic Surgery 09/04/20 Nathaniel Ovalle MD [address] [place] [address] Physician Pain Management 09/04/20 Lianne Mayo DO [address] [place] [address] DR [place] [phone] Resident Dermatology 09/04/20 Karlee Sanchez MD [address] [place] [address] DR [place] [phone] Physician Dermatology 05/31/22 Regina Bright MD [address] [place], [place] [phone] Physician Dermatology 08/02/22 Mason Walls MD [address] [place] [address] 90475 Fellow Gastroenterology 01/03/23 Shira Grady DO [address] [place] [address] [place] [address] Physician Dermatology 08/01/23 Mack Vega MD [address] [place] [address] 34784 Fellow Gastroenterology 09/05/23 Commissions Analyst Relationship Specialty Start Date End Date Chuck Leopoldo, [employer] SUPERVISOR-CONVALESCENT SITTER [address] [place] [address] 13174 PCP - General Family Medicine 11/12/22 Antwan Woodruff MD [address] [place] [address] 94761 Fellow Gastroenterology 04/22/17 Don Moya MD [address] [place], [place] [id number] Physician Orthopaedic Surgery 09/04/20 Nathaniel Ovalle MD [address] [place] [id number] Physician Pain Management 09/04/20 Lianne Mayo DO [address] [place] [address] [place] [address] Resident Dermatology 09/04/20 Karlee Sanchez MD [address] [place] [address] [place] [address] Physician Dermatology 05/31/22 Regina Bright MD [address] [place] [id number] Physician Dermatology 08/02/22 Mason Walls MD [address] [place] [address] Fellow Gastroenterology 01/03/23 Shira Grady DO [address] [place] [address] [place] [address] Physician Dermatology 08/01/23 Mack Vega MD [address] [place] [address] Fellow Gastroenterology 09/05/23 Commissions Analyst Relationship Specialty Start Date End Date Leopoldo Woods APRN-[facility] [address] [place], [place] [id number] PCP - General Family Medicine 11/12/22 Antwan Woodruff MD [address] [place] [address] Fellow Gastroenterology 04/22/17 Don Moya MD [address] [place], [place] [phone] Physician Orthopaedic Surgery 09/04/20 Nathaniel Ovalle MD [address] [place] [address] Physician Pain Management 09/04/20 Lianne Mayo DO [address] [place] [address] [address] [place] [id number] Resident Dermatology 09/04/20 Karlee Sanchez MD [address] [place] [address] [address] [place] [id number] Physician Dermatology 05/31/22 Regina Bright MD [address] [place] [address] Physician Dermatology 08/02/22 Mason Walls MD [address] [place], [place] [phone] Fellow Gastroenterology 01/03/23 Shira Grady DO [address] [place], [place] [id number] Physician Dermatology 08/01/23 Mack Vega MD [address] [place], [place] [phone] Fellow Gastroenterology 09/05/23 Team Status: Active Member Role Status Dates RAFFY Olivera Primary Care Provider Active Team Status: Inactive Member Role Status Dates Leopoldo Woods ELECTRON [employer] OPERATOR-C Primary Care Provider Active Start: October 12, 2024 End: October 12, 2024 Rea Plummer APRN Attending Provider Active S tart: October 12, 2024 End: October 12, 2024 Commissions Analyst Relationship Specialty Start Date End Date Leopoldo Woods APRN-[facility] [address] [place], [place] [id number] PCP - General Family Medicine 11/12/22 Antwan Woodruff MD [address] [place], [place] [phone] Fellow Gastroenterology 04/22/17 Don Moya MD [address] [place], [place] [phone] Physician Orthopaedic Surgery 09/04/20 Nathaniel Ovalle MD [address] [place] [address] Physician Pain Management 09/04/20 Lianne Mayo DO [address] [place] [id number] Resident Dermatology 09/04/20 Karlee Sanchez MD [address] [place] [address] [place] [id number] Physician Dermatology 05/31/22 Regina Bright MD [address] [place] [address] Physician Dermatology 08/02/22 Mason Walls MD [address] [place] [address] Fellow Gastroenterology 01/03/23 Shira Grady DO [address] [place], [place] [id number] Physician Dermatology 08/01/23 Mack Vega MD [address] [place], [place] [phone] Fellow Gastroenterology 09/05/23 Team Status: Inactive Member Role Status Dates Leopoldo Woods NP-[facility] Primary Care Provider Active Start: March 17, 2025 End: March 17, 2025 Marisol Jesus APRN Attending Provider Active Start: March 17, 2025 End: March 17, 2025 Team Status: Inactive Member Role Status Dates Leopoldo Woods NP-C Primary Care Rosa Iselai ebony, Attending Provider Active Start: May 10, 2025 End: May 10, 2025 Commissions Analyst Relationship Specialty Start Date End Date Leopoldo Woods MD [address] [place], [place] [id number] PCP - General Family Medicine 02/17/24 Commissions Analyst Relationship Specialty Start Date End Date Leopoldo Woods MD [address] [place] [id number] PCP - General Family Medicine 02/17/24 Commissions Analyst Relationship Specialty Start Date End Date Leopoldo Woods MD [address] [place] [id number] PCP - General Family Medicine 02/17/24 Commissions Analyst Relationship Specialty Start Date End Date Leopoldo Woods MD [address] [place] [address] PCP - General Family Medicine 02/17/24 Commissions Analyst Relationship Specialty Start Date End Date Leopoldo Woods MD [address] [place] [address] PCP - General Family Medicine 02/17/24 Commissions Analyst Relationship Specialty Start Date End Date Leopoldo Woods MD [address] [place] [id number] PCP - General Family Medicine 02/17/24 Scheduled Active and Recently Administ ered Medications [...] [id number] (Given - Provid er: Carisa Hwoard RN) lidocaine viscous 2 % solution (COMPLETED) [...] (Given - Provid er: Mary Ko RN) Goals (unrecognized section and content) Goals may be documented in a n alternate section FOR RECORDS PERTAINING TO PATIENTS WHO ARE [...] BE BASED ON THE PRIMARY CLINICAL RECORDS. [employer] provides no warranty or guarantee of the accuracy or completeness of information in this document.
== END 2025-08-02 11:08 | disposition home or self-care (01) ==
PROVIDERS: Emergency Provider Student in an Organized Health Care Education/Training Program; PCP Nurse Practitioner Family
DX: M77.11 Lateral epicondylitis, right elbow (principal); M25.521 Pain in right elbow
CPT/HCPCS: 73080; 99283